=== PATIENT | female | born 1980 | race Caucasian/White ===

== ENCOUNTER 2024-07-11 19:21 | Emergency (ER) | payer MEDICAID, SELFPAY ==
[2024-07-11 19:22] VITALS: BP 158/68; PULSE 89; RESP 20; TEMP 36.4; O2SAT 95
--- NOTE | 2024-07-11 19:44 | RAD_ITS ---
STUDY: X-RAY CHEST REASON FOR EXAM: Female, 44 years old. SOB TECHNIQUE: Single AP portable view of the chest. COMPARISON: None. FINDINGS: Increased density in both lower lung bullard worse on the right-cannot exclude atelectasis or infiltrate versus overlying breast artifact. Suggest PA and lateral images or CT of the chest. No gross effusions. Normal size heart. Normal mediastinum and bibiana. Normal visualized pulmonary arteries. Normal visualized aortic arch and descending thoracic aorta. Normal visualized thoracic spine. Normal visualized ribs, clavicles, and shoulders. There is no demonstrated abnormality of the visualized soft tissue structures of the upper abdomen. RAD/Chest 1 View (Portable) IMPRESSION: Airspace densities in both mid and lower lung bullard versus overlying soft tissue artifact. Suggest further evaluation as above. Electronically Signed: Zach Hutton MD at 20:55 EST ,
[2024-07-11 19:58] LABS: Anion Gap 2 (5-15); BUN 8 mg/dL (7-18); BUN/Creat Ratio 11.7 RATIO (10-20); Calcium,Total 8.8 mg/dL (8.5-10.1); Chloride 106 mmol/L (98-107); Creatinine, Serum 0.69 mg/dL (0.55-1.02); EST Glomerular Filtration Rate 100 mL/min (>60); Est Glom Filt Rate - Afr Amer 121 mL/min (>60); Glucose 114 mg/dL (74-106); Sodium Level 138 mmol/L (136-145)
[2024-07-11 20:16] LABS: Absolute Lymphocyte Count 1.86 X10^3/uL (0.83-4.51); Absolute Neutrophil Count 7.4 X10^3/uL (2.0-7.7); Basophil# 0.07 X10^3/uL; Basophil% 0.7 % (0-1); Eosinophil# 0.31 X10^3/uL; Eosinophils% 2.9 % (0-5); Hematocrit 42.3 % (37-47); Hemoglobin 13.6 g/dL (12.0-15.0); Lymphocyte # 1.86 X10^3/ul (0.83-4.51); Lymphocyte % 17.6 % (19-41); Mean Corp Hgb Conc 32.2 g/dL (32-36); Mean Corpuscular Hgb 27.4 pg (27.0-32.0); Mean Corpuscular Volume 85.1 fL (81-99); Mean Platelet Vol. 10.4 fl (6.2-12.0); Monocyte# 0.81 X10^3/uL; Monocyte% 7.6 % (0-10); NRBC Flagged by Analyzer 0 % (0-5); Neutrophil # 7.41 X10^3/uL (2.7-7.7); Platelet Count 296 K/mm3 (150-450); RBC Distribution Width CV 15.4 % (11.6-14.6); RBC Distribution Width SD 47.5 fl (35.1-43.9); Red Blood Count 4.97 M/mm3 (4.2-5.4); White Blood Count 10.6 K/mm3 (4.4-11.0)
[2024-07-11 21:22] VITALS: BP 141/59; PULSE 80; RESP 20; O2SAT 96
--- NOTE | 2024-07-11 21:53 | ED.VIS.DYS ---
HPI History of Present Illness Chief Complaint: Shortness of Breath Detail of Chief Complaint: History of asthma, COPD with upper respiratory symptoms started 3 days ago Informant: patient Onset/Context/Timing Onset: Days (3 days prior to presentation) Context: sudden Timing: Continuous and Waxes and wanes Quality: Positive for Dyspnea on exertion and Wheezing; Negative for Orthopnea or PND Current Severity: Mild Maximum Severity: Moderate Worsened by: Exertion and Coughing Relieved by: Nothing Associated Symptoms cough, rhinorrhea and post nasal drip; Negative for ear pain, fever, sore throat, subjective, chills, sweats, clear sputum, white sputum, yellow sputum or green sputum Chest Pain: Positive for None Narrative Narrative: Patient is a 44-year-old woman who started smoking when she was a teenager. She smokes 1 pack/day. She reports her illness started 3 days prior to presentation. She has upper respiratory tract infectious symptoms with rhinorrhea, congestion, cough that is nonproductive. She does wheeze. She has history of asthma as a child. She also has COPD. She has not been on prednisone in the last 3 to 6 months. She has not used her inhaler. Patient denies fever or chills. Patient denies GI symptoms. Patient denies myalgias or arthralgias. Patient states she chronically has drainage from her eyes. She denies history of diabetes. PE Risk Factors: Negative for Cancer, OCP + Smoking + > 35, Prior DVT or PE, Recent immobilization, Recent surgery or Recent travel Prior similar symptoms: Yes (COPD/asthma exacerbation) Recent Illness/Hospitalization: No PFSH PFSH Medical History (Updated 07/11/24 @ 22:[address] Froylan Palmer MD) COPD (chronic obstructive pulmonary disease) Asthma Home Medications ?Medication ?Instructions ?Recorded ?Last Taken ?Type albuterol sulfate 90 mcg/actuation 2 puff inhalation Q4H PRN PRN 07/11/24 Unknown Rx aerosol inhaler (Ventolin HFA) Wheezing ##1 prednisone 20 mg tablet 60 mg (3 x 20 mg) PO DAILY #12 07/11/24 Unknown Rx TABLETS Allergy/AdvReac Type Severity Reaction Status Date / Time No Known Allergies Allergy Verified 07/11/24 19:24 Social History (Updated 07/11/24 @ 21:[address] Froylan Palmer MD) household members: friend(s) Smoking Status: Current every day smoker tobacco type: cigarettes ROS ROS ED Constitutional Constitutional ED: Denies chills, fever(s) or sweats Eyes Eyes: Denies blurry vision, change in vision or diplopia ENT ENT ED: Reports sore throat; Denies ear pain or rhinorrhea Cardiovascular Cardiovascular: Denies chest pain, orthopnea, palpitations or paroxysmal nocturnal dyspnea Respiratory/Chest Respiratory/Chest: Reports cough, dyspnea and dyspnea on exertion; Denies orthopnea, paroxysmal nocturnal dyspnea or sputum Gastrointestinal Gastrointestinal: Denies abdominal pain, diarrhea, melena, nausea or vomiting Genitourinary Genitourinary ED: Denies dysuria, hematuria or urinary frequency Musculoskeletal Musculoskeletal: Denies arthralgias or myalgias Integumentary Denies rash Neurologic Neurologic: Denies headache(s), paresthesias or weakness Hematologic/Lymphatic Hematologic/Lymphatic: Denies easy bleeding or easy bruising EXAM Physical Exam Const Vital Signs: 07/11/24 19:22 07/11/24 21:22 07/11/24 22:00 Temperature 97.6 F L 98.0 F Temperature Source Oral Oral Pulse Rate 89 80 88 Respiratory Rate 20 H 20 H 18 Respiratory Effort Blood Pressure 158/68 H 141/59 H 159/75 H Blood Pressure Mean 98 86 103 Pulse Ox 95 96 93 Oxygen Delivery Method Room Air Room Air Room Air 07/11/24 22:06 07/11/24 22:06 07/11/24 22:08 Temperature Temperature Source Pulse Rate Respiratory Rate 20 H Respiratory Effort Normal Non-Labored Blood Pressure Blood Pressure Mean Pulse Ox 96 96 Oxygen Delivery Method Room Air Room Air Room Air Positive well nourished, well developed and unkempt Constitutional Narrative: BMI is greater than 40. Vital signs are marked for an elevated blood pressure. Patient not febrile. Pulse ox is 95% on room air. General Appearance ED: unkempt and well developed; Negative for pallor HEENT Reports TM's clear and moist mucous membranes HEENT Narrative: Posterior pharynx is normal. atraumatic; Negative for tenderness Tympanic Membrane ED: Yes TM's clear Eyes PERRL and EOMs intact bilaterally Eyes Narrative: Conjunctive is slightly injected with discharge noted bilaterally. General Eye ED: Negative for pale conjunctiva or scleral icterus Neck no lymphadenopathy, supple, no meningeal signs and no JVD Neck Narrative: Trachea is midline. There is no inspiratory expiratory stridor. Resp normal respiratory effort and No clear to auscultation bilaterally Effort and Inspection: Negative for pain with movement Auscultation: wheezes expiratory wheezes and throughout (There is diminished breath sounds bilaterally. Breath sounds are symmetric. Expiratory phase is increased.); Negative for rales or rhonchi Cardio regular rate, regular rhythm, S1 normal heart sound, S2 normal heart sound and no murmurs GI non-tender, non-distended and no masses Palpation: soft Extremity normal to inspection General Extremety ED: Negative for edema or tenderness General Extremity: Negative for edema Neuro oriented x3 and CN's II-XII intact bilaterally Dola Coma Scale: document GCS findings Spontaneous Obeys Commands Oriented 15 Sensorium / Orientation: alert Psych mental status grossly normal Appearance: unkempt Skin no wounds and skin turgor normal General Skin Exam: Negative for jaundice or pallor Lesions: no lesions Rashes: no rashes MDM MDM MDM Narrative Medical decision making narrative: Patient with exacerbation COPD. Chest x-ray is obtained to evaluate for pneumonia. Rapid antigen for COVID, influenza and RSV was ordered as well as basic blood work. Suspect this is a viral upper respiratory infection that is exacerbated her asthma/COPD. She was treated with DuoNeb and albuterol. She also received 60 mg of prednisone p.o. Nurse protocol was initiated because of acuity in the emergency department. Lab Data Attestation: I reviewed the patient's lab results. Lab results narrative: CBC is unremarkable. Electrolyte panel is unremarkable. Glucose slight elevated 114 with normal CO2 anion gap. Rapid antigen for COVID, influenza and RSV are all negative. Labs: Laboratory Results - last 24 hr 07/11/24 19:35 WBC 10.6 RBC 4.97 Hgb 13.6 Hct 42.3 MCV 85.1 MCH 27.4 MCHC 32.2 RDW Std Deviation 47.5 H RDW Coeff of [place] 15.4 H Plt Count 296 MPV 10.4 Immature Gran % (Auto) 1.200 H Neut % (Auto) 70.0 Lymph % (Auto) 17.6 L [place] % (Auto) 7.6 Eos % (Auto) 2.9 Baso % (Auto) 0.7 Absolute Neuts (auto) 7.4 Absolute Lymphs (auto) 1.86 Nucleated RBC % 0 Sodium 138 Potassium 4.0 Chloride 106 Carbon Dioxide 30.0 Anion Gap 2 L BUN 8 Creatinine 0.69 Est GFR (MDRD) Af Amer 121 Est GFR (MDRD) Non-Af 100 BUN/Creatinine Ratio 11.7 Glucose 114 H Calcium 8.8 Radiography Chest X-Ray - ED: 2 View, Read by ED Physician, Unchanged, Normal, Heart, Mediastinum, Bony Structures, No Acute Disease and Chronic Changes Diagnostic Testing: Clinical Impression(s) from Imaging Studies Chest X-Ray 07/11/24 19:44 IMPRESSION: Airspace densities in both mid and lower lung bullard versus overlying soft tissue artifact. Suggest further evaluation as above. Electronically Signed: Zach Hutton MD at 20:55 EST , Radiology report was reviewed. I suspect the airspace densities is due to patient's body habitus. Clinically she does not have pneumonia. There is no rales, rhonchi egophony or increased vocal fremitus. Treatment and Re-Evaluation :: Patient was reassessed at 2252. She is not tachypneic, tachycardic or hypoxic. She reports she feels markedly better. There is minimal to no wheezing. She was informed of her test results. Discharge Plan Triage Chief Complaint: Shortness of Breath ED Provider: Froylan Palmer Dx/Rx/DC Orders Clinical Impression: Acute exacerbation of chronic obstructive pulmonary disease, Acute bronchospasm, Upper respiratory infection with cough and congestion, Tobacco use, Elevated blood-pressure reading without diagnosis of hypertension Instructions: ED COPD Flare Prescriptions: New prednisone 20 mg tablet 60 mg PO DAILY Qty: 12 0RF albuterol sulfate [Ventolin HFA] 90 mcg/actuation HFA aerosol inhaler 2 puff inhalation Q4H PRN PRN (Reason: Wheezing) Qty: 1 0RF Primary Care Provider: Care Physician,No Primary Referrals: NOT,DEFINED [Non-Staff] - Print Language: Hungarian Disposition Disposition: Home, Self Care
[2024-07-11] MEDS: Ipratropium/Albuterol Sulfate 3 ML AMPUL.NEB INHALATION (21:56)
[2024-07-11 22:00] VITALS: BP 159/75; PULSE 88; RESP 18; TEMP 36.7; O2SAT 93
[2024-07-11] MEDS: Albuterol 2.5 MG/3 ML VIAL.NEB. INHALATION ×3 (22:04)
[2024-07-11 22:06] VITALS: RESP 20; O2SAT 96
[2024-07-11] MEDS: predniSONE 20 MG Tablet 60 MG PO (22:06)
[2024-07-11 22:08] VITALS: O2SAT 97
[2024-07-11 22:10] VITALS: BMI 61.8
== END 2024-07-11 22:59 | disposition home or self-care (01) ==
PROVIDERS: Emergency Provider Emergency Medicine; Visit Provider Emergency Medicine
DX: J44.1 Chronic obstructive pulmonary disease with (acute) exacerbation (principal); J06.9 Acute upper respiratory infection, unspecified; J98.01 Acute bronchospasm; R03.0 Elevated blood-pressure reading, without diagnosis of hypertension; F17.210 Nicotine dependence, cigarettes, uncomplicated
CPT/HCPCS: 71045; 80048; 85025; 87631; 94640; 94760; 99283; A4216

== ENCOUNTER 2024-11-19 20:34 | Emergency (ER) | payer MEDICAID, SELFPAY ==
[2024-11-19 20:35] VITALS: BP 161/71; PULSE 88; RESP 20; TEMP 36.9; O2SAT 94
[2024-11-19 20:36] VITALS: BMI 63.5
--- NOTE | 2024-11-19 21:02 | EX.ED.VIS.EY ---
HPI History of Present Illness Chief Complaint: Eye Problem Detail of Chief Complaint: Drainage from eye, pain, itching Informant: patient Onset/Context/Timing Location: Left Eye Onset: Weeks (1 week ago.) Context: Sudden Onset Timing: Continuous Current Severity: Mild Maximum Severity: Moderate Worsened by: Itching, light Relieved by: Nothing Associated Symptoms Associated Symptoms - Eyes: Burning, Drainage, Eyelid swelling, Foreign body sensation, Itching, Pain and Redness Visual Changes: bilateral: Blurred vision History of injury: No Visual correction: None Narrative Narrative: Patient is a 44-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 She apparently was seen at [facility] [place]. She was told there was nothing that could be done. She presents because of eye pain, redness, drainage, itching and foreign body sensation. She also reports light sensitivity. She denies direct or indirect trauma. She denies double vision, loss of vision. She denies rhinorrhea, congestion postnasal drainage. She denies headache. Prior similar symptoms: No Recent Illness/Hospitalization: No [facility] Medical History (Updated 11/19/24 @ 22:[address] Froylan Palmer MD) Toxoplasmosis chorioretinitis COPD (chronic obstructive pulmonary disease) Asthma Home Medications ?Medication ?Instructions ?Recorded ?Last Taken ?Type albuterol sulfate 90 mcg/actuation 2 puff inhalation Q4H PRN PRN 07/11/24 Unknown Rx aerosol inhaler (Ventolin HFA) Wheezing ##1 prednisone 20 mg tablet 60 mg (3 x 20 mg) PO DAILY #12 07/11/24 Unknown Rx TABLETS Allergy/AdvReac Type Severity Reaction Status Date / Time No Known Allergies Allergy Verified 11/19/24 20:36 Social History household members: friend(s) Smoking Status: Heavy Smoker (>10/day) ROS ROS ED Constitutional Constitutional ED: Denies chills, fever(s), subjective or sweats Eyes Eyes: Reports change in vision bilateral and other Details: No loss of vision or visual field cuts. ; Denies diplopia ENT ENT ED: Denies ear pain, rhinorrhea or sore throat Respiratory/Chest Respiratory/Chest: Denies cough or dyspnea Gastrointestinal Gastrointestinal: Denies nausea or vomiting Hematologic/Lymphatic Hematologic/Lymphatic: Denies easy bleeding or easy bruising EXAM Physical Exam Const Vital Signs: 11/19/24 20:35 Temperature 98.5 F Temperature Source Oral Pulse Rate 88 Respiratory Rate 20 H Blood Pressure 161/71 H Blood Pressure Mean 101 Pulse Ox 94 Oxygen Delivery Method Room Air Positive well nourished, well developed and unkempt Constitutional Narrative: BMI is 63.5. General Appearance ED: unkempt and well developed HEENT Reports other atraumatic and other Nose: external nose normal and nares normal Eyes Eyes Narrative: Patient has floppy eyelid syndrome. Patient's sclera are injected bilaterally. The conjunctive is slightly injected. There is a slightly cloudy drainage noted. There appears to be a foreign body that is visible left eye. There is no APD. There is no subconjunctival hemorrhage. Neck no lymphadenopathy, supple and no JVD Resp normal respiratory effort Cardio regular rate and regular rhythm Neuro oriented x3 and CN's II-XII intact bilaterally Sensorium / Orientation: alert Psych Psych Narrative: Normal Appearance: unkempt Skin no wounds Lesions: no lesions Rashes: no rashes MDM MDM MDM Narrative Medical decision making narrative: Tetracaine, fluorescein slit-lamp was ordered as well as visual acuity. As previously noted there appears to be a visible foreign body at 12:00 3 mm from the limbal border. Will have nurse check visual acuity, will anesthetize eye and stain with fluorescein and perform slit-lamp exam to determine if there is evidence of episcleritis, iritis etc. Visual acuity is 20/30 bilaterally, 20/30 right eye and 20/200 left. Patient states her left eye is her bad eye. Patient was stained with fluorescein anesthetized with tetracaine. Patient is noted to have multiple corneal abrasions bilaterally. There may be a small flap superiorly 2 to 3 mm from the limbal border at 12:00. There is no foreign body seen. There is no flare cells noted. Patient was treated with ciprofloxacin drops in the emergency department and while was dispensed. Discharge Plan Triage Chief Complaint: Eye Problem ED Provider: Froylan Palmer Dx/Rx/DC Orders Clinical Impression: Bilateral corneal abrasions, COPD (chronic obstructive pulmonary disease), Acute conjunctivitis of both eyes, Obstructive sleep apnea, Floppy eyelid syndrome of both eyes Instructions: ED Corneal Abrasion Prescriptions: No Action prednisone 20 mg tablet 60 mg PO DAILY Qty: 12 0RF albuterol sulfate [Ventolin HFA] 90 mcg/actuation HFA aerosol inhaler 2 puff inhalation Q4H PRN PRN (Reason: Wheezing) Qty: 1 0RF Primary Care Provider: Addie Robles Referrals: Wale Diallo MD [Med Staff - Active Staff] - 1-2 Days if not improving Care Physician,No Primary [Non-Staff] - Activity Restrictions/Additional Instructions: 1. Do not rub your eyes 2. Instill 1 drop of eyedrop every 2 hours while awake for the next 24 hours, then instill 1 drop every 4 hours while awake for the next 5 days. 3. If you are not better contact Dr. Cherire Reed who is a local trench digger helper. Print Language: Vincentian Disposition Disposition: Home, Self Care
[2024-11-19] MEDS: Tetracaine 0.5% Ophthalmic Bottle 1 DRP OPHTHALMIC (21:06)
[2024-11-19] MEDS: Fluorescein 1 MG STRIP 2 STRIP OPHTHALMIC (21:06)
[2024-11-19 22:27] VITALS: PULSE 84; RESP 18; TEMP 36.8; O2SAT 95
[2024-11-19] MEDS: Ciprofloxacin 0.3% 2.5ml Bottle 1 DRP EACH EYE (22:28)
== END 2024-11-19 22:30 | disposition home or self-care (01) ==
PROVIDERS: Emergency Provider Emergency Medicine; PCP Family Medicine; Visit Provider Emergency Medicine
DX: S05.01XA Injury of conjunctiva and corneal abrasion without foreign body, right eye, initial encounter (principal); J44.9 Chronic obstructive pulmonary disease, unspecified; G47.33 Obstructive sleep apnea (adult) (pediatric); H10.33 Unspecified acute conjunctivitis, bilateral; F17.200 Nicotine dependence, unspecified, uncomplicated; B58.00 Toxoplasma oculopathy, unspecified; S05.02XA Injury of conjunctiva and corneal abrasion without foreign body, left eye, initial encounter; H02.89 Other specified disorders of eyelid; X58.XXXA Exposure to other specified factors, initial encounter
CPT/HCPCS: 99283

== ENCOUNTER 2025-01-02 17:47 | Emergency (ER) | payer MEDICAID, SELFPAY ==
[2025-01-02] VITALS (8 sets, daily range): BP systolic 128–161; BP diastolic 72–96; PULSE 83–90; RESP 14–20; TEMP 36.8–37.1; O2SAT 94–100
--- NOTE | 2025-01-02 19:38 | ED.VIS.LOWEX ---
HPI History of Present Illness HPI Narrative: Patient presents with redness to her right lower leg that has been getting worse over the past week. Patient was seen at [place] emergency [facility] for this. Patient was started on doxycycline. Patient also admits to a rash in her abdominal skin folds. Patient states she was given nystatin for this. Patient states the nystatin made this worse. Patient states she does not feel she is getting any better. Patient admits to some nausea but denies any vomiting. Family states patient appears to be more confused. Patient denies any fevers or chills. Patient denies any trauma or injury. Chief Complaint: Lower Extremity Injury Informant: patient Onset/Context/Timing Onset: Weeks (1) Context: Gradual Onset Timing: Continuous Location: Right lower leg Worsened by: Nothing Relieved by: Nothing Associated Symptoms Associated Symptoms: Negative for Parasthesia, Weakness or Loss of Funtion [facility] Medical History (Updated 01/03/25 @ 00:[address] Cale Dolan, DO) Toxoplasmosis chorioretinitis COPD (chronic obstructive pulmonary disease) Asthma Home Medications ?Medication ?Instructions ?Recorded ?Last Taken ?Type albuterol sulfate 90 mcg/actuation 2 puff inhalation Q4H PRN PRN 07/11/24 Unknown Rx aerosol inhaler (Ventolin HFA) Wheezing ##1 prednisone 20 mg tablet 60 mg (3 x 20 mg) PO DAILY #12 07/11/24 Unknown Rx TABLETS celecoxib 100 mg capsule 100 mg PO DAILY 01/02/25 Unknown History cetirizine 10 mg tablet 10 mg PO DAILY 01/02/25 Unknown History doxycycline monohydrate 100 mg 100 mg PO BID 01/02/25 Unknown History capsule nystatin 100,000 unit/gram topical 1 applic topical TID 01/02/25 Unknown History powder omega-3 acid ethyl esters 1 gram 1 cap PO DAILY 01/02/25 Unknown History capsule pantoprazole 40 mg tablet,delayed 40 mg PO 01/02/25 Unknown History release risperidone 0.5 mg tablet 0.5 mg PO QHS 01/02/25 Unknown History trazodone 50 mg tablet 50 mg PO QHS 01/02/25 Unknown History venlafaxine 225 mg tablet,extended 225 mg PO DAILY 01/02/25 Unknown History release 24 hr cephalexin 500 mg capsule 500 mg PO Q6 #40 CAPSULES 01/03/25 Unknown Rx Allergy/AdvReac Type Severity Reaction Status Date / Time No Known Allergies Allergy Verified 01/02/25 17:48 Family History no significant family his Surgical History (Updated 01/02/25 @ 19:[address] Cale Dolan DO) Hx of cholecystectomy Hx of appendectomy Social History household members: friend(s) Smoking Status: Light Smoker (<10/day) ROS ROS ED Constitutional Constitutional ED: Denies chills or fever(s) Eyes Eyes: Denies blurry vision or change in vision ENT ENT ED: Denies rhinorrhea or sore throat Cardiovascular Cardiovascular: Denies chest pain or palpitations Respiratory/Chest Respiratory/Chest: Denies cough or dyspnea Gastrointestinal Gastrointestinal: Reports nausea; Denies vomiting Genitourinary Genitourinary ED: Denies dysuria or hematuria Musculoskeletal Musculoskeletal: Denies back pain or neck pain Integumentary Reports rash; Denies abscess Neurologic Neurologic: Denies headache(s) or weakness Allergic/Immunologic Allergic/Immunologic ED: Denies mouth swelling or urticaria EXAM Physical Exam Const Vital Signs: 01/02/25 17:47 01/02/25 17:56 01/02/25 18:56 Temperature 98.3 F 98.3 F 98.3 F Temperature Source Temporal Oral Oral Pulse Rate 89 89 89 Respiratory Rate 14 16 16 Respiratory Pattern Blood Pressure 161/96 H 161/96 H 149/72 H Blood Pressure Mean 117 117 97 Pulse Ox 98 98 100 Oxygen Delivery Method Room Air Room Air Room Air 01/02/25 20:00 01/02/25 21:00 01/02/25 22:00 Temperature 98.3 F 98.8 F 98.8 F Temperature Source Oral Oral Oral Pulse Rate 85 89 90 Respiratory Rate 20 H 20 H 20 H Respiratory Pattern Blood Pressure 154/76 H 149/80 H 128/73 H Blood Pressure Mean 102 103 91 Pulse Ox 94 94 94 Oxygen Delivery Method Room Air Room Air Room Air 01/02/25 22:11 01/02/25 23:00 01/03/25 00:00 Temperature 98.8 F 98.8 F Temperature Source Oral Oral Pulse Rate 90 83 83 Respiratory Rate 20 H 18 18 Respiratory Pattern Normal Blood Pressure 139/84 H 145/92 H Blood Pressure Mean 102 109 Pulse Ox 94 94 Oxygen Delivery Method Room Air Room Air Positive well nourished and well developed General Appearance ED: well developed and NAD HEENT Reports moist mucous membranes Neck full ROM and supple Resp normal respiratory effort and clear to auscultation bilaterally Cardio regular rate and regular rhythm GI non-distended Palpation: soft and tender RLQ Extremity Extremity Narrative: There are superficial wounds over the anterior aspect of the right lower leg. There is some erythema around this. There is no purulent discharge or drainage noted. There is no evidence of any abscess. There is no calf tenderness. Pedal pulses are equal bilaterally. Sensation was intact to light touch bilaterally in the lower extremities. Strength is 5/5 bilaterally in the lower extremities. Neuro oriented x3, CN's II-XII intact bilaterally, moves all extremities and no sensory deficits noted Sensorium / Orientation: alert Motor Exam: strength 5/5 throughout Psych mental status grossly normal MDM MDM MDM Narrative Medical decision making narrative: Differential diagnosis includes cellulitis, gastroenteritis, urinary tract infection, ureteral calculus, dehydration, electrolyte abnormality, cardiac dysrhythmia, cardiac ischemia, intracranial bleeding, and sepsis. CBC will be obtained to assess for leukocytosis and anemia. Comprehensive metabolic profile will be obtained to assess for hepatic function, renal function, and electrolyte abnormality. Urinalysis will be obtained to assess for urinary tract infection and hematuria. Serum lactate will be obtained to assess for sepsis. PT with INR and PTT will be obtained to assess for coagulopathy. Chest x-ray will be obtained to assess for pneumonia and bronchitis. EKG will be obtained to assess for cardiac dysrhythmia and cardiac ischemia. CT scan of the brain will be obtained to assess for intracranial bleeding. Blood cultures will be obtained to assess for sepsis. Urine culture will be obtained to assess for urinary tract infection. History & Record Review Additional record(s) reviewed:: Prior labs Lab Data Attestation: I reviewed the patient's lab results. Lab results narrative: CBC was reviewed. There is a mild leukocytosis of 14.2. The remainder is within normal limits. Comprehensive metabolic profile was reviewed. Potassium was slightly elevated at 5.3 but there was hemolysis noted. Glucose was mildly elevated at 129. CO2 was slightly low at 18.6. The remainder was essentially within normal limits. Serum lactate was reviewed and was slightly elevated at 2.6. High-sensitivity troponin was reviewed and was less than 6. BNP was reviewed and was normal at 163. Urinalysis was reviewed. There is no evidence of urinary tract infection or hematuria. 2-hour repeat high-sensitivity troponin was reviewed and was less than 6. Repeat lactate was reviewed and was improving at 2.1. 4-hour high-sensitivity troponin was reviewed and was less than 6. COVID-19 PCR was reviewed and was negative. Influenza PCR was reviewed and was negative for influenza A and influenza B. RSV PCR was reviewed and was negative. Labs: Laboratory Results - last 24 hr 01/02/25 01/02/25 01/02/25 19:55 21:49 23:41 WBC 14.2 H RBC 5.22 Hgb 13.5 Hct 42.2 MCV 80.8 L MCH 25.9 L MCHC 32.0 RDW Std Deviation 50.3 H RDW Coeff of [place]ber[place] 17.7 H Plt Count 343 MPV 10.1 Immature Gran % (Auto) 1.300 H Neut % (Auto) 83.5 H Lymph % (Auto) 10.5 L [place] % (Auto) 4.1 Eos % (Auto) 0.1 Baso % (Auto) 0.5 Absolute Neuts (auto) 11.9 H Absolute Lymphs (auto) 1.50 Nucleated RBC % 0 PT 13.0 INR 1.0 APTT 26.8 Sodium 135 Potassium 5.3 H Chloride 101 Carbon Dioxide 18.6 L Anion Gap 16 H BUN 12 Creatinine 0.83 Est GFR (MDRD) Non-Af 90 BUN/Creatinine Ratio 14.0 Glucose 129 H Lactic Acid 2.6 H* 2.1 H* Calcium 8.8 Total Bilirubin 0.42 AST 51 H ALT 32 Alkaline Phosphatase 99 Troponin T High Sens < 6 Troponin T Hi Sens 2 Hr < 6 Troponin T Hi Sens 4Hr < 6 NT pro BNP II 163 Total Protein 7.3 Albumin 3.8 Globulin 3.4 Albumin/Globulin Ratio 1.1 Urine Color Straw Urine Clarity Clear Urine pH 6.0 Ur Specific Corinne 1.015 Urine Protein 30 H Urine Glucose (UA) Normal Urine Ketones Negative Urine Occult Blood Negative Urine Nitrite Negative Urine Bilirubin Negative Urine Urobilinogen Normal Ur Leukocyte Esterase Negative Urine RBC 0 SEEN Urine WBC 0-5 SEEN Ur Squamous Epith Cells 10-25 SEEN Urine Bacteria RARE Urine Mucus 0 SEEN Radiography Chest X-Ray - ED: 2 View, Read by ED Physician, Read by Radiologist and CHF (Vascular congestion) Diagnostic Testing: Clinical Impression(s) from Imaging Studies Brain CT 01/02/25 19:44 IMPRESSION: 1. No acute intracranial abnormality. 2. Sphenoid and maxillary sinus disease. Reading Location: [id number] Chest X-Ray 01/02/25 20:19 IMPRESSION: Increased interstitial markings with prominent cardiomediastinal silhouette, as may be seen with pulmonary edema. Reading Location: [id number] CT scan of the brain was obtained. There is no acute intracranial abnormality. There is sphenoid maxillary sinus congestion. This was interpreted by the radiologist and was also independently reviewed by myself. PA and lateral chest x-ray was obtained. There are 2 views. On my independent interpretation, lung bullard show vascular congestion. There is normal cardiac silhouette. Bony thorax is normal. There is no acute infiltrate noted. Radiologist also interpreted the x-ray and agrees. EKG Initial EKG: Attestation: I personally reviewed and interpreted this EKG as follows: Interpretation: Sinus Rhythm (88) and Non-Specific ST Changes Comments: EKG was obtained. On my independent interpretation, it showed a normal sinus rhythm with a rate of 88. AL interval, QRS interval, and QTc intervals were all normal. [place] was normal. There are nonspecific ST-T wave changes. Prior EKG tracings: not available for review Prior: No Prior Treatment and Re-Evaluation Narrative: Because of the chest x-ray findings, patient is given a dose of Lasix. Patient was given a DuoNeb aerosol. Patient was advised of her findings. Patient was feeling better on reevaluation. Patient wants to go home. Patient was given a dose of Keflex here. Patient was given a prescription for Keflex. Patient was requesting a referral to a new primary care physician. Patient was given a referral to [facility]. Patient was instructed to follow-up in 5 to 7 days. Patient was instructed to return if worse in any way. Patient understood and was agreeable with the plan. All questions were answered. Discharge Plan Triage Chief Complaint: Lower Extremity Injury ED Provider: Cale Dolan Dx/Rx/DC Orders Clinical Impression: Cellulitis of right anterior lower leg, COPD (chronic obstructive pulmonary disease), Candidiasis of skin Instructions: ED Katie Skin Infection (Adult), ED Cellulitis Prescriptions: New cephalexin 500 mg capsule 500 mg PO Q6 Qty: 40 0RF No Action prednisone 20 mg tablet 60 mg PO DAILY Qty: 12 0RF albuterol sulfate [Ventolin HFA] 90 mcg/actuation HFA aerosol inhaler 2 puff inhalation Q4H PRN PRN (Reason: Wheezing) Qty: 1 0RF trazodone 50 mg tablet 50 mg PO QHS cetirizine 10 mg tablet 10 mg PO DAILY doxycycline monohydrate 100 mg capsule 100 mg PO BID pantoprazole 40 mg tablet,delayed release (DR/EC) 40 mg PO nystatin 100,000 unit/gram powder 1 applic topical TID celecoxib 100 mg capsule 100 mg PO DAILY risperidone 0.5 mg tablet 0.5 mg PO QHS omega-3 acid ethyl esters 1 gram capsule 1 cap PO DAILY venlafaxine 225 mg tablet extended release 24hr 225 mg PO DAILY Primary Care Provider: Addie Robles Referrals: Cale Moore MD [Med Staff - [employer]] - 5-7 Days Addie Robles DO [Primary Care Provider] - 5-7 Days Print Language: [place] Disposition Disposition: Home, Self Care
--- NOTE | 2025-01-02 19:44 | CT_ITS ---
PROCEDURE: BRAIN/HEAD WITHOUT CONTRAST 01/02/2025 REASON FOR EXAM: CONFUSION TECHNIQUE: BRAIN/HEAD WITHOUT CONTRAST Coronal and Sagittal reconstruction series were provided. One or more dose reduction techniques were used (e.g., Automated exposure control, adjustment of the mA and/or kV according to patient size, use of iterative reconstruction technique. RADIATION DOSE SUMMARY: CTDlvol: 45.0 mGy DLP: 914 mGycm COMPARISON: None FINDINGS: Brain: No acute intracranial hemorrhage, mass effect, or midline shift. Ochoa- white differentiation is maintained. The cerebellar tonsils extend to the level of the foramen magnum. CSF Spaces: Unremarkable for age Sinuses/Mastoids: Mild mucosal thickening in the maxillary sinuses. Near- complete opacification of the right sphenoid sinus there is under pneumatization of the mastoid air cells without significant effusion. Bones: Unremarkable CT/Brain/Head without Contrast IMPRESSION: 1. No acute intracranial abnormality. 2. Sphenoid and maxillary sinus disease. Reading Location: [facility]
--- NOTE | 2025-01-02 19:45 | EKG12_ITS ---
Test Reason : DYSRHYTHMIA Blood Pressure : */* mmHG Vent. Rate : 88 BPM Atrial Rate : 88 BPM P-R Int : 132 ms QRS Dur : 84 ms QT Int : 406 ms P-R-T Axes : 50 76 77 degrees QTcB Int : 491 ms Normal sinus rhythm Low voltage QRS Nonspecific T wave abnormality Abnormal ECG Confirmed by GABO SPANGLER, FABIENNE ([id number]), managing editor RAFAEL PEDROZA ([id number]) on 01/03/2025 11:27:45 AM Referred By: Confirmed By: FABIENNE AYON MD
--- NOTE | 2025-01-02 19:51 | PCA ---
no old ekg
--- NOTE | 2025-01-02 20:19 | RAD_ITS ---
PROCEDURE: CHEST PA AND LATERAL 01/02/2025 REASON FOR EXAM: COUGH TECHNIQUE: CHEST PA AND LATERAL COMPARISON: Chest radiograph on 07/11/2024 FINDINGS: Hardware: None Mediastinum: Prominent cardiomediastinal silhouette, unchanged. Lungs: No focal consolidation. Interstitial markings are increased. No definite pleural effusion. Bones: Degenerative changes are identified within the thoracic spine. RAD/Chest PA and Lateral IMPRESSION: Increased interstitial markings with prominent cardiomediastinal silhouette, as may be seen with pulmonary edema. Reading Location: [id number]
[2025-01-02 20:33] LABS: Mucous, Urine 0 SEEN /hpf (<or=2+); Red Blood Cells-Urine 0 SEEN /hpf (0-5)
[2025-01-02 20:43] LABS: Absolute Neutrophil Count 11.9 X10^3/uL (2.0-7.7); Basophil# 0.07 X10^3/uL; Basophil% 0.5 % (0-1); Eosinophil# 0.02 X10^3/uL; Eosinophils% 0.1 % (0-5); Hematocrit 42.2 % (37-47); Hemoglobin 13.5 g/dL (12.0-15.0); Lymphocyte % 10.5 % (19-41); Mean Corpuscular Hgb 25.9 pg (27.0-32.0); Mean Corpuscular Volume 80.8 fL (81-99); Mean Platelet Vol. 10.1 fl (6.2-12.0); Monocyte# 0.59 X10^3/uL; Monocyte% 4.1 % (0-10); NRBC Flagged by Analyzer 0 % (0-5); Neutrophil # 11.86 X10^3/uL (2.7-7.7); Neutrophil % 83.5 % (47-70); Platelet Count 343 K/mm3 (150-450); RBC Distribution Width CV 17.7 % (11.6-14.6); RBC Distribution Width SD 50.3 fl (35.1-43.9); Red Blood Count 5.22 M/mm3 (4.2-5.4); White Blood Count 14.2 K/mm3 (4.4-11.0)
[2025-01-02 20:52] LABS: Partial Thromboplast Time 26.8 Seconds (24.1-36.2)
[2025-01-02 21:16] LABS: Troponin T High Sensitivity < 6 ng/L (<=14)
[2025-01-02 21:23] LABS: Lactic Acid 2.6 mmol/L (0.0-2.0)
[2025-01-02 21:24] LABS: Color, Urine Straw (Yellow); Glucose, Dipstick Normal (Normal); Ketone-Dipstick Negative (Negative); Leukocyte Esterase-Dipstick Negative /ul (Negative); Nitrite-Dipstick Negative (Negative); Occult Blood-Urine Negative /ul (Negative); Protein-Dipstick 30 mg/dl (Negative); Specific Gravity, Urine 1.015 (1.002-1.030); Urine Bilirubin Dipstick Negative (Negative); Urine Clarity Clear (Clear); Urine Urobilinogen Normal (Normal)
[2025-01-02 21:27] LABS: Reflex Lactate? Y
[2025-01-02 21:34] LABS: ALB/GLOB Ratio 1.1 RATIO (0.9-2.4); AST(SGOT) 51 U/L (<=31); Alanine Aminotransfer ALT/SGPT 32 U/L (<=34); Albumin, Serum 3.8 g/dL (3.5-5.0); Alkaline Phosphatase 99 U/L (35-104); Anion Gap 16 (5-15); BUN 12 mg/dL (4-19); Calcium,Total 8.8 mg/dL (7.6-11.0); Carbon Dioxide 18.6 mmol/L (21.0-32.0); Chloride 101 mmol/L (98-108); Creatinine, Serum 0.83 mg/dL (0.70-1.20); EST Glomerular Filtration Rate 90 (>60); Globulin 3.4 g/dL (2.2-4.2); Glucose 129 mg/dL (70-99); Potassium 5.3 mmol/L (3.3-5.1); Protein, Total 7.3 g/dL (5.9-8.4); Sodium Level 135 mmol/L (133-145); Total Bilirubin 0.42 mg/dL (0.00-1.30)
[2025-01-02 21:49] LABS: Bacteria RARE /hpf (None Seen); Squamous Epithelial Cells - UA 10-25 SEEN /hpf (5-10); White Blood Cells 0-5 SEEN /hpf (0-5)
[2025-01-02] MEDS: Ipratropium/Albuterol Sulfate 3 ML AMPUL.NEB INHALATION (22:11)
[2025-01-02 22:18] LABS: Troponin T High Sens 2 HR < 6 ng/L (<=14)
[2025-01-02] MEDS: Furosemide 40 MG/4 ML Vial IV (22:25)
[2025-01-02 22:59] LABS: Pro- Brain NATRIURETIC PEPTIDE 163 pg/mL (<=450)
[2025-01-03] VITALS: BP 145/92; PULSE 83; RESP 18; TEMP 37.1; O2SAT 94
[2025-01-03 00:16] LABS: Troponin T High Sens 4 HR < 6 ng/L (<=14)
[2025-01-03 00:20] LABS: Lactic Acid 2.1 mmol/L (0.0-2.0)
[2025-01-03 00:37] VITALS: BP 141/62; PULSE 71; RESP 16; TEMP 36.6; O2SAT 96
[2025-01-03] MEDS: Cephalexin 500 MG Capsule PO (00:41)
[2025-01-03 03:48] LABS: Reflex Lactate? Y
== END 2025-01-03 00:47 | disposition home or self-care (01) ==
PROVIDERS: Emergency Provider Emergency Medicine; PCP Family Medicine; Visit Provider Emergency Medicine
DX: L03.115 Cellulitis of right lower limb (principal); J44.9 Chronic obstructive pulmonary disease, unspecified; B37.2 Candidiasis of skin and nail; F17.200 Nicotine dependence, unspecified, uncomplicated; Z79.899 Other long term (current) drug therapy; D72.829 Elevated white blood cell count, unspecified; E87.5 Hyperkalemia; R73.9 Hyperglycemia, unspecified; E87.20 Acidosis, unspecified
CPT/HCPCS: 70450; 71046; 80053; 81001; 83605; 83880; 84484; 85025; 85610; 85730; 87040; 87077; 87086; 87088; 87186; 87631; 93005; 94640; 99284; A4216; J1938

== ENCOUNTER 2025-02-28 13:45 | Outpatient (RCR) | payer MEDICAID, SELFPAY ==
[2025-02-14 14:00] VITALS: BP 187/61; PULSE 86; RESP 18; TEMP 36.4; BMI 62.4
--- NOTE | 2025-02-15 09:10 | WC ---
PHOTO: RT LINARES 02.14.25
--- NOTE | 2025-02-15 12:31 | PCM.WC.HP ---
History of Present Illness Date of Service: 02/14/25 Chief Complaint: Traumatic wound of the right lower extremity History of Wound: This is a morbidly obese 44-year-old diabetic female who presented with a wound on her right pretibial surface. According to patient, the wound began in November 2024 as result of trauma when she fell down a flight of stairs. Since the time of her initial injury, the patient has been evaluated and treated in various medical facilities, including the [facility] Emergency Department in the Emergency Department at the [facility]. She was seen at the [facility] ER on January 02, 2025, at which time she was treated with a prescription for cephalexin 500 mg p.o. every 6 hours for 10 days. More recently, the patient was evaluated in the Emergency Department at the [facility] on February 07, at which time she was briefly admitted and subsequently discharged with prescriptions for oral Bactrim and Levaquin, which continue to this date. According to the patient, a prior wound culture was positive for Staph aureus. She also indicates that hemoglobin A1c was obtained on January 24, 2025, which was 5.9. She denies that she is diabetic. She also denies a history of myocardial infarction, congestive heart failure, cerebrovascular accident, renal disease, thyroid disease, and hypertension. She is known to be a smoker, and suffers from COPD and asthma. She also has obstructive sleep apnea, for which she uses CPAP. She is morbidly obese, with a BMI of 62.5. The patient admits to sleeping in a recliner. She is not active, and sits in idle fashion throughout most of each day. She denies a history of lower extremity thrombophlebitis. [facility] Medical History (Updated 02/15/25 @ 13:[address] Russ Mancuso MD) Dependent edema Obstructive sleep apnea on CPAP Morbid obesity with BMI of 60.0-69.9, adult Non-pressure ulcer of right lower extremity with fat layer exposed Wound of right lower extremity Asthma Tobacco abuse counseling Tobacco abuse Schizophrenia ADHD Hyperlipidemia GERD (gastroesophageal reflux disease) Toxoplasmosis chorioretinitis COPD (chronic obstructive pulmonary disease) Asthma Home Medications ?Medication ?Instructions ?Recorded ?Last Taken ?Type albuterol sulfate 90 mcg/actuation 2 puff inhalation Q4H PRN PRN 07/11/24 Unknown Rx aerosol inhaler (Ventolin HFA) Wheezing ##1 celecoxib 100 mg capsule 100 mg PO DAILY 01/02/25 Unknown History cetirizine 10 mg tablet 10 mg PO DAILY 01/02/25 Unknown History pantoprazole 40 mg tablet,delayed 40 mg PO DAILY 01/02/25 Unknown History release risperidone 0.5 mg tablet 0.5 mg PO QHS 01/02/25 Unknown History trazodone 50 mg tablet 100 mg PO QHS 01/02/25 Unknown History atorvastatin 10 mg tablet (Lipitor) 10 mg PO DAILY 02/14/25 Unknown History bupropion HCl 150 mg 24 hr tablet, 150 mg PO DAILY 02/14/25 Unknown History extended release (Wellbutrin XL) fluconazole 150 mg tablet 150 mg PO QWEEK 02/14/25 Unknown History fluticasone 250 mcg-salmeterol 50 1 inh inhalation BID 02/14/25 Unknown History mcg/dose blistr powdr for inhalation (Advair Diskus) ipratropium 0.5 mg-albuterol 3 mg ml 02/14/25 Unknown History (2.5 mg base)/3 mL nebulization soln lumateperone 21 mg capsule 21 mg PO DAILY 02/14/25 Unknown History (Caplyta) omega-3 acid ethyl esters 1 gram cap PO 02/14/25 Unknown History capsule propranolol 20 mg tablet 20 mg PO BID 02/14/25 Unknown History Allergy/AdvReac Type Severity Reaction Status Date / Time nystatin Allergy Intermediate Rash Verified 02/14/25 14:21 Surgical History Hx of cholecystectomy Hx of appendectomy Social History household members: friend(s) Smoking Status: Current every day smoker tobacco type: cigarettes Vital Signs Vital Signs Vital Signs: 02/14/25 14:00 Temperature 97.6 F L Temperature Source Temporal Pulse Rate 86 Respiratory Rate 18 Blood Pressure 187/61 H Blood Pressure Mean 103 Blood Pressure Source Monitor Blood Pressure Position Semi-Fowlers Blood Pressure Location Right Arm Weight Weight: 320 lb Body Mass Index (BMI) 62.4 Physical Exam Const alert, oriented x3, no apparent distress, no limitations and well nourished Constitutional Narrative: The patient is morbidly obese. Her BMI is 62.5. General Appearance: cooperative, comfortable and well developed Orientation / Consciousness: awake, oriented to person, oriented to place and oriented to time Exam Limitations: no limitations Nutritional Appearance: overweight HEENT normocephalic and head/scalp atraumatic Head and Scalp: normal to inspection, normocephalic and atraumatic Face and Sinus: normal facial exam Nose: external nose normal External Ear: external ears normal Eyes EOMs intact bilaterally General Eye: normal appearance of both eyes Neck full ROM Resp normal respiratory effort, normal air movement, no retractions and no use of accessory muscles Effort and Inspection: able to speak in complete sentences Extremity no calf tenderness General Extremity: Negative for clubbing or cyanosis Skin Wound Narrative: A wound is noted on the right pretibial surface. It appears to be full-thickness, extending through all layers of the dermis and into the subcutaneous tissues. Wound margins appear to be well beveled. Dimensions are documented elsewhere. There is a moderate amount of slough, bioburden, and nonviable tissue. Mild surrounding erythema is noted. There are some scattered superficial eschars and excoriation in the distal right lower extremity, with mild dermatitic changes. Visually, there is mild swelling, with 1+ pitting edema. Neuro oriented x3, CN's II-XII intact bilaterally, moves all extremities, no focal motor deficits and no sensory deficits noted Sensorium / Orientation: awake, alert, oriented to person, oriented to place and oriented to time Speech: speech normal Psych Appearance: grossly normal and appropriate Attitude: calm Activity / Motor Behavior: appropriate eye contact Speech: normal speech Mood & Affect: euthymic mood Thought Process: normal thought process Thought Content: normal thought content Attention / Concentration: attention grossly intact Debridement Note Debridement Note Wound debrided: Right pretibial surface Laterality: Right Type of Debridement: Excisional debridement Anesthesia Used: 5% Lidocaine Gel and Cetacaine Depth: Down to and including healthy tissue and in the subcutaneous layer Percentage of wound debrided: 100 Instrument Used: 5mm curette Tissue Removed: Bioburden, slough, and nonviable tissue Severity: Fat Layer Exposed Amount of bleeding with debridement: Mild Bleeding Controlled with: Compression and gauze Patient tolerated procedure: Patient tolerated procedure well Post-Debridement Measurements and Additional Note: Post-Debridement Measurements/Treatment WC - Nurse 1 - General Ulcer Assessment Start: 02/14/25 14:00 Freq: Status: Active Protocol: PAOLO Activity Type Activity Date Activity User E-sign Co-sign Detail Recorded Client Recorded Date Recorded By Document 02/14/25 14:00 AURELIO [id number] 02/14/25 14:17 AURELIO 02/14/25 14:00 - Today's Visit Information Type of service Initial Visit Arrival Mode Ambulatory Accompanied by friend Patient Identification Verified (Name & Yes ) Patient Requires Transmission-Based No Precautions Height and Weight Height 5 ft Weight 320 lb Weight in Pounds 320.0 lbs Weight Measurement Method Estimated by Patient Body Mass Index (BMI) 62.4 BMI Classification Obese Vital Signs Temperature (97.8 F-99.1 F) 97.6 F L Temperature Source Temporal Pulse Rate (60-100) 86 Pulse Location Monitor Respiratory Rate (12-18) 18 Respiratory rate source Observation Blood Pressure (90/60-120/80) 187/61 H Blood Pressure Mean 103 Source Monitor Position Semi-Fowlers Blood Pressure Location Right Arm History Since Last Visit- (Skip if this is Patient's initial visit) Left Footwear Regular Shoe Right Footwear Regular Shoe Pain Scale: 0-10 Numeric Is Patient Pain Free? Yes Lower Extremity Assessment/ Foot Assessment/ Toe Nail Assessment Right -Posterior Tibial Palpable Yes -Dorsalis Pedis Palpable Yes -Extremity Color Hyperpigmented -Hair Growth on Legs Yes -Hair Growth on Toes Yes -Temperature of Extremity Warm -Capillary Refill Less than 3 Seconds -Prior Foot Ulcer No -Thick Yes -Discolored Yes -Deformed No -Improper Length & Hygeine No Communication Assessment Preferred language Wolof Able to Read Yes Able to Write Yes Communication Tools None Right Hearing Abillity Normal Left Hearing Abillity Normal Visual Assistive Devices Glasses Teaching Assessment Preferences Verbal,Written, Audio/Visual, Demonstration Barriers to Learning None Readiness To Learn Good Willingness to Engage in Self Management Med Activies Readiness to Engage in Self Management Med Activities Anxiety Level Anxious Cooperation Cooperative Perception Coherent Interest in Health Problem Asks Questions Education Importance Acknowledges Need Does Patient Smoke tobacco or other Yes substances Smoking Status Current every day smoker Is Patient Diabetic No Functional Assessment Recent Decline in Ability to Perform Denies Any Declines Culture/Restoration/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 Infantry Indirect Fire Crewmember to contact place of cheondoism No Teaching: Wound Center [facility] Orientation/ Contacting Physician -Person Taught Patient,Family -Teaching Method Discussion, Demonstration -Response to teaching Return Demonstration, Verbalize Understanding - Nurse 1 - General Ulcer Measurement Start: 02/14/25 14:00 Freq: Status: Active Protocol: Activity Type Activity Date Activity User E-sign Co-sign Detail Recorded Client Recorded Date Recorded By Document 02/14/25 14:00 AURELIO [id number] 02/14/25 14:17 JF 02/14/25 14:00 Wound Center Nurse 1 1-right de souza -Combined with other wound No -Current Size (cm) - Length 5 -Current Size (cm) - Width 2.6 -Current Size (cm) - Depth 0.1 -Total Square Cm 13.0 -Photo Taken Yes -Epithelialization Small 1-33% -Tunneling No -Undermining/Tunneling No -Circular Undermining No -Exudate Amt Small -Exudate Type Serosanguineous -Wound Margin Flat & Intact -Granulation Amt Medium (34-66%) -Granulation Quality Pale -Slough/Fibrin Yes -Necrosis Amt Large (67-100%) -Necrotic Tissue Type Adherent Slough -Structure Exposed N/A -Texture (Brandy-wound Skin Appearance) Assessed, Localized Edema -Moisture (Brandy-wound Skin Appearance) No Abnormality, Dry/Scaly -Color (Brandy-wound Skin Appearance) Assessed -Temperature (Brandy-wound Skin No Abnormality Appearance) (Pt Warm) -Tenderness on Palpation (Brandy-wound No Skin Appearance) -Ulcer Cleansing Soap and Water -Foul Odor after Cleansing No -Anesthetic Used 5% Lidocaine Gel Lower Limb Edema Present Yes Right Calf (cm) 44 Right Ankle (cm) 20.8 - Nurse 2 - General Ulcer CM Notes Start: 02/14/25 14:00 Freq: Status: Active Protocol: Activity Type Activity Date Activity User E-sign Co-sign Detail Recorded Client Recorded Date Recorded By Document 02/14/25 14:45 JOSE LUIS [id number] 02/14/25 14:48 DS 02/14/25 14:45 Wound Center Nurse 2 1-right de souza -Time 14:45 -Correct Patient Yes -Correct Side, Site, Position Yes -Correct Procedure Yes -Procedure Performed Yes -Type of Procedure Debridement -Clinical Debridement Subcutaneous -Tissue Removed Subcutaneous -Post Debridement (cm) - Length 3.8 -Post Debridement (cm) - Width 3.0 -Post Debridement (cm) - Depth 0.1 -Total Square (Post) (cm) 11.40 -Area of Debridement (cm) - Length 3.8 -Area of Debridement (cm) - Width 3.0 -Total Square (Area) (cm) 11.40 -Tunneling No -Undermining/Tunneling No -Circular Undermining No -Wound/Ulcer Outcome Not Healed -Foul Odor after Cleansing No -Bioengineered Tissue No -Bleeding Controlled with Pressure -Treatment Response Procedure Tolerated Well -Debridement - Subq, 1st 20sq cm Yes Pain Scale: 0-10 Numeric Is Patient Pain Free? Yes WC - Nurse 3 - General Ulcer D/C NN Start: 02/14/25 14:00 Freq: Status: Active Protocol: Activity Type Activity Date Activity User E-sign Co-sign Detail Recorded Client Recorded Date Recorded By Document 02/14/25 16:02 KW [id number] 02/14/25 16:03 KW 02/14/25 16:02 Wound Care Center Nurse 3 RLE -Multi-Layered Wrap Application Unna Boot - Right -Unna- Right (Qty applied) 1 Pain Scale: 0-10 Numeric Is Patient Pain Free? Yes WC - Visit Discharge Discharge Condition Stable Ambulatory Status Ambulatory Transportation Private Auto Medication Reconcilliation completed & No provided to patient/care provider Clinical Summary of Care Provided Yes Charges/Coding Multi Select Codes Visit Charges Office Visit/Consults: 52878 OV L4 New 45 min Integumentary Integumentary CPT Codes: 77383 Therese subq tissue 20 sq cm/< Assessment/Plan Assessment/Plan (1) Non-pressure ulcer of right lower extremity with fat layer exposed: CODE(S): L97.912 - Non-pressure chronic ulcer of unspecified part of right lower leg with fat layer exposed (2) Wound of right lower extremity: CODE(S): S81.801A - Unspecified open wound, right lower leg, initial encounter (3) Dependent edema: CODE(S): R60.9 - Edema, unspecified (4) Asthma: CODE(S): J45.909 - Unspecified asthma, uncomplicated (5) COPD (chronic obstructive pulmonary disease): CODE(S): J44.9 - Chronic obstructive pulmonary disease, unspecified (6) Tobacco abuse: CODE(S): Z72.0 - Tobacco use (7) Tobacco abuse counseling: CODE(S): Z71.6 - Tobacco abuse counseling (8) Morbid obesity with BMI of 60.0-69.9, adult: CODE(S): E66.01 - Morbid (severe) obesity due to excess calories; Z68.44 - Body mass index [BMI] 60.0-69.9, adult (9) Hx of cholecystectomy: CODE(S): Z90.49 - Acquired absence of other specified parts of digestive tract (10) Hx of appendectomy: CODE(S): Z90.49 - Acquired absence of other specified parts of digestive tract (11) GERD (gastroesophageal reflux disease): CODE(S): K21.9 - Gastro-esophageal reflux disease without esophagitis (12) Hyperlipidemia: CODE(S): E78.5 - Hyperlipidemia, unspecified (13) ADHD: CODE(S): F90.9 - Attention-deficit hyperactivity disorder, unspecified type (14) Schizophrenia: CODE(S): F20.9 - Schizophrenia, unspecified (15) Asthma: CODE(S): J45.909 - Unspecified asthma, uncomplicated (16) Obstructive sleep apnea on CPAP: CODE(S): G47.33 - Obstructive sleep apnea (adult) (pediatric) PLAN: Plan This is a morbidly obese diabetic female with multiple pre-existing medical problems. The patient presented with a traumatic wound on the right pretibial surface, the origin of which was due to trauma in November 2024. According to the patient, the prior culture was positive for Staph aureus, and the patient continues to take Bactrim and Levaquin orally. She has been encouraged to complete the course of antibiotics. The patient has been counseled to discontinue her smoking habit. Optimizing her nutritional intake and glycemic control has also been encouraged. Because of the patient's morbid obesity and diabetes mellitus, we are to request a dietary consultation to be provided on an outpatient basis. The appropriate conservative measures relative to the management of chronic swelling and edema in the lower extremities have been discussed with the patient in detail. The patient has been encouraged to elevate her lower extremities is much as possible. Elevation is to be during both daytime and nighttime hours. Elevation is to be to heart level, or higher. Prolonged idle sitting has been discouraged. Activity has been encouraged. An Unna compression wrap has been applied, and will remain in place with changes anticipated twice weekly. The patient is to return in 1 week for reevaluation. Total time: 48 minutes
[2025-02-17 10:22] VITALS: BP 147/80; PULSE 80; RESP 18; TEMP 36.4; BMI 62.4
[2025-02-21 11:38] VITALS: BP 128/67; PULSE 87; RESP 20; TEMP 36.4; BMI 62.4
--- NOTE | 2025-02-21 12:18 | WC ---
PHOTO-RIGHT LINARES 02/21/25
--- NOTE | 2025-02-22 18:30 | HP.PCM_ITS ---
History of Present Illness Date of Service: 02/21/25 Chief Complaint: Traumatic wound of the right lower extremity History of Wound: This is a morbidly obese 44-year-old diabetic female who presented with a wound on her right pretibial surface. According to patient, the wound began in November 2024 as result of trauma when she fell down a flight of stairs. Since the time of her initial injury, the patient has been evaluated and treated in various medical facilities, including the [facility] Emergency Department and the Emergency Department at the [facility] [place]. She was seen at the [facility] ER on January 02, 2025, at which time she was treated with a prescription for cephalexin 500 mg p.o. every 6 hours for 10 days. More recently, the patient was evaluated in the Emergency Department at the [facility] [place] on February 07, at which time she was briefly admitted and subsequently discharged with prescriptions for oral Bactrim and Levaquin. According to the patient, a prior wound culture was positive for Staph aureus. She also indicates that her hemoglobin A1c was obtained on January 24, 2025, which was 5.9. She denies that she is diabetic. She also denies a history of myocardial infarction, congestive heart failure, cerebrovascular accident, renal disease, thyroid disease, and hypertension. She is known to be a smoker, and suffers from COPD and asthma. She also has obstructive sleep apnea, for which she uses CPAP. She is morbidly obese, with a BMI of 62.5. The patient admits to sleeping in a recliner. She is not active, and sits in idle fashion throughout most of each day. She denies a history of lower extremity thrombophlebitis. 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 exposed Wound of right lower extremity Asthma Tobacco abuse counseling Tobacco abuse Schizophrenia ADHD Hyperlipidemia GERD (gastroesophageal reflux disease) Toxoplasmosis chorioretinitis COPD (chronic obstructive pulmonary disease) Asthma Home Medications ?Medication ?Instructions ?Recorded ?Last Taken ?Type albuterol sulfate 90 mcg/actuation 2 puff inhalation Q 4H PRN PRN 07/11/24 Unknown Rx aerosol inhaler (Ventolin HFA) Wheezing ##1 celecoxib 100 mg capsule 100 mg PO DAILY 01/02/25 Unk nown History cetirizine 10 mg tablet 10 mg PO DAILY 01/02/25 Unkn own History pantoprazole 40 mg tablet,delayed 40 mg PO DAILY 01/02 Unknown History release risperidone 0.5 mg tablet 0.5 mg PO QHS 01/02/25 Unkno wn History trazodone 50 mg tablet 100 mg PO QHS 01/02/25 Unkno wn History atorvastatin 10 mg tablet (Lipitor) 10 mg PO DAILY 12/04 Unknown History bupropion HCl 150 mg 24 hr tablet, 150 mg PO DAILY 12/04 Unknown History extended release (Wellbutrin XL) fluconazole 150 mg tablet 150 mg PO QWEEK 02/14/25 Unk nown History fluticasone 250 mcg-salmeterol 50 1 inh inhalation BID 02/14/25 Unknown History mcg/dose blistr powdr for inhalation (Advair Diskus) ipratropium 0.5 mg-albuterol 3 mg ml 02/14/25 Unknown History (2.5 mg base)/3 mL nebulization soln lumateperone 21 mg capsule 21 mg PO DAILY 02/14/25 Unk nown History (Caplyta) omega-3 acid ethyl esters 1 gram cap PO 02/14/25 Unkno wn History capsule propranolol 20 mg tablet 20 mg PO BID 02/14/25 Unknow n History doxycycline monohydrate 100 mg 100 mg PO BID 02/21/25 Unknown History capsule doxycycline monohydrate 100 mg 100 mg PO BID 02/21/25 Unknown History capsule Allergy/AdvReac Type Severity Reaction Status Date / Time nystatin Allergy Intermediate Rash Verified 02/14/25 14:21 Surgical History Hx of cholecystectomy Hx of appendectomy Social History household members: friend(s) Smoking Status: Current every day smoker tobacco type: cigarettes Vital Signs Vital Signs Vital Signs: Weight Weight: 320 lb Body Mass Index (BMI) 62.4 Physical Exam Const alert, oriented x3, no apparent distress, no limitations and well nourished Constitutional Narrative: The patient is morbidly obese. Her BMI is 62.5. General Appearance: cooperative, comfortable and well developed Orientation / Consciousness: awake, oriented to person, oriented to place and oriented to time Exam Limitations: no limitations Nutritional Appearance: overweight HEENT normocephalic and head/scalp atraumatic Head and Scalp: normal to inspection, normocephalic and atraumatic Face and Sinus: normal facial exam Nose: external nose normal External Ear: external ears normal Eyes EOMs intact bilaterally General Eye: normal appearance of both eyes Neck full ROM Resp normal respiratory effort, normal air movement, no retractions and no use of accessory muscles Effort and Inspection: able to speak in complete sentences Extremity no calf tenderness General Extremity: Negative for clubbing or cyanosis Skin Wound Narrative: A wound is noted on the right pretibial surface. It appears to be full- thickness, extending through all layers of the dermis and into the subcutaneous tissues. Wound margins are well beveled. Dimensions are documented elsewhere. The wound has decreased in size significantly since the patient's last visit, and is now nearly healed. A large area of epidermal slough is noted surrounding the wound. The swelling of the patient's right lower extremity is now minimal, much improved from the patient's prior visit. There is no sign of infection or cellulitis. Neuro oriented x3, CN's II-XII intact bilaterally, moves all extremities, no focal motor deficits and no sensory deficits noted Sensorium / Orientation: awake, alert, oriented to person, oriented to place and oriented to time Speech: speech normal Psych Appearance: grossly normal and appropriate Attitude: calm Activity / Motor Behavior: appropriate eye contact Speech: normal speech Mood & Affect: euthymic mood Thought Process: normal thought process Thought Content: normal thought content Attention / Concentration: attention grossly intact Debridement Note Debridement Note No debridement was completed: No debridement was completed today (Epidermal slough is noted surrounding the wound, which was gently removed using a sterile 5 mm curette.) Post-Debridement Measurements and Additional Note: Post-Debridement Measurements/Treatment YAZAN - Nurse 1 - General Ulcer Assessment Start: 02/14/25 14:00 Freq: Status: Active Protocol: PAOLO Activity Type Activity Date Activity User E-sign Co-sign Detail Recorded Client Recorded Date Recorded By Document 02/14/25 14:00 AURELIO [id number] 02/14/25 14:17 JF Document 02/17/25 10:22 RB [id number] 02/17/25 10:24 RB Document 02/21/25 11:38 [facility] [id number] 02/21/25 11:44 BMF 02/14/25 02/17/25 02/21/25 14:00 10:22 11:38 WC - Today's Visit Information Type of service Initial Visit Nurse-only Follow-up Visit Visit (Physician/INSURANCE ACCOUNT ASSISTANT ) Arrival Mode Ambulatory Ambulatory Ambulatory Transfer Assistance None None Accompanied by friend GRADUATE INTERN PARTNER Patient Identification Verified (Name & Yes Yes Yes ) Patient Requires Transmission-Based No No No Precautions Height and Weight Height 5 ft Weight 320 lb Weight in Pounds 320.0 lbs Weight Measurement Method Estimated by Patient Body Mass Index (BMI) 62.4 62.4 62.4 BMI Classification Obese Obese Obese Vital Signs Temperature (97.8 F-99.1 F) 97.6 F L 97.6 F L 97.6 F L Temperature Source Temporal Temporal Temporal Pulse Rate (60-100) 86 80 87 Pulse Location Monitor Monitor Monitor Respiratory Rate (12-18) 18 18 20 H Respiratory rate source Observation Observation Observation Oxygen Delivery Method Room Air Blood Pressure (90/60-120/80) 187/61 H 147/80 H 128/67 H Blood Pressure Mean 103 102 87 Source Monitor Monitor Monitor Position Semi-Fowlers Semi-Fowlers Sitting Blood Pressure Location Right Arm Left Arm Left Forearm History Since Last Visit- (Skip if this is Patient's initial visit) Have you changed medications since your No Yes last visit? Any new allergies or adverse reactions No No Had a fall/change in ADL's that may No No increase risk of falls Signs or symptoms of abuse and/or No No neglect since last visit Have you been in the hospital since your No No last visit? Has dressing in place as prescribed Yes No Has compression in place as prescribed Yes No Has offloadiing in place as prescribed N/A N/A Experienced any changes in pain level or No No management Left Footwear Regular Shoe Regular Shoe Regular Shoe Right Footwear Regular Shoe Regular Shoe Regular Shoe Other Footwear REMOVED WRAP TO SHOWER 1 HR PRIOR TO APPT Pain Scale: 0-10 Numeric Is Patient Pain Free? Yes Yes Yes Lower Extremity Assessment/ Foot Assessment/ Toe Nail Assessment Right -Posterior Tibial Palpable Yes -Dorsalis Pedis Palpable Yes -Extremity Color Hyperpigmented -Hair Growth on Legs Yes -Hair Growth on Toes Yes -Temperature of Extremity Warm -Capillary Refill Less than 3 Seconds -Prior Foot Ulcer No -Thick Yes -Discolored Yes -Deformed No -Improper Length & Hygeine No Communication Assessment Preferred language [place] Able to Read Yes Able to Write Yes Communication Tools None Right Hearing Abillity Normal Left Hearing Abillity Normal Visual Assistive Devices Glasses Teaching Assessment Preferences Verbal,Written, Audio/Visual, Demonstration Barriers to Learning None Readiness To Learn Good Willingness to Engage in Self Management Med Activies Readiness to Engage in Self Management Med Activities Anxiety Level Anxious Cooperation Cooperative Perception Coherent Interest in Health Problem Asks Questions Education Importance Acknowledges Need Does Patient Smoke tobacco or other Yes substances Smoking Status Current every day smoker Is Patient Diabetic No Functional Assessment Recent Decline in Ability to Perform Denies Any Declines Culture/Restoration/Licensing Specialist Cultural/Restoration Needs that may affect No Treatment Plan Would you allow our hospital fisher gill net to No meet you for the purpose of spiritual/ emotional support? Licensing Specialist to contact place of quaker No Teaching: Wound Center [facility] Orientation/ Contacting Physician -Person Taught Patient,Family -Teaching Method Discussion, Demonstration -Response to teaching Return Demonstration, Verbalize Understanding [facility] Nurse 1 - General Ulcer Measurement Start: 02/14/25 14:00 Freq: Status: Active Protocol: Activity Type Activity Date Activity User E-sign Co-sign Detail Recorded Client Recorded Date Recorded By Document 02/14/25 14:00 [id number] 02/14/25 14:17 Document 02/17/25 10:22 RB [id number] 02/17/25 10:24 RB Document 02/21/25 11:38 [facility] [id number] 02/21/25 11:44 [facility] 02/14/25 02/17/25 02/21/25 14:00 10:22 11:38 Wound Center Nurse 1 1-right de souza -Combined with other wound No No -Current Size (cm) - Length 5 0.8 -Current Size (cm) - Width 2.6 0.6 -Current Size (cm) - Depth 0.1 0.1 -Total Square Cm 13.0 0.48 -Date of Last Picture (Recall this 02/21/25 field) -Photo Taken Yes Yes -Epithelialization Small 1-33% Medium 34-66% -Tunneling No No -Undermining/Tunneling No No -Circular Undermining No No -Exudate Amt Small Large Small -Exudate Type Serosanguineous Serosanguineous Serous -Wound Margin Flat & Intact Distinct, Flat & Intact Outline Attached -Granulation Amt Medium (34-66%) Large (67-100%) Small (1-33%) -Granulation Quality Pale Ranier Red -Slough/Fibrin Yes Yes Yes -Necrosis Amt Large (67-100%) Small (1-33%) Large (67-100%) -Necrotic Tissue Type Adherent Slough Adherent Slough Adherent Slough -Structure Exposed N/A N/A -Texture (Brandy-wound Skin Appearance) Assessed, Assessed, Localized Edema Scarring -Moisture (Brandy-wound Skin Appearance) No Abnormality, Assessed,Dry/ Dry/Scaly Scaly -Color (Brandy-wound Skin Appearance) Assessed Assessed -Temperature (Brandy-wound Skin No Abnormality No Abnormality Appearance) (Pt Warm) (Pt Warm) -Tenderness on Palpation (Brandy-wound No No Skin Appearance) -Ulcer Cleansing Soap and Water Soap and Water -Foul Odor after Cleansing No No -Anesthetic Used 5% Lidocaine 5% Lidocaine Gel Gel Lower Limb Edema Present Yes Yes Right Calf (cm) 44 41.4 Right Ankle (cm) 20.8 20.8 WC - Nurse 2 - General Ulcer CM Notes Start: 02/14/25 14:00 Freq: Status: Active Protocol: Activity Type Activity Date Activity User E-sign Co-sign Detail Recorded Client Recorded Date Recorded By Document 02/14/25 14:45 DS [id number] 02/14/25 14:48 DS Document 02/21/25 12:11 JF [id number] 02/21/25 12:15 02/14/25 02/21/25 14:45 12:11 Wound Center Nurse 2 1-right de souza -Time 14:45 12:11 -Correct Patient Yes Yes -Correct Side, Site, Position Yes No -Correct Procedure Yes No -Procedure Performed Yes No -Type of Procedure Debridement -Clinical Debridement Subcutaneous -Tissue Removed Subcutaneous -Post Debridement (cm) - Length 3.8 3.2 -Post Debridement (cm) - Width 3.0 1 -Post Debridement (cm) - Depth 0.1 0.1 -Total Square (Post) (cm) 11.40 3.2 -Area of Debridement (cm) - Length 3.8 3.2 -Area of Debridement (cm) - Width 3.0 1.0 -Total Square (Area) (cm) 11.40 3.20 -Tunneling No No -Undermining/Tunneling No No -Circular Undermining No No -Wound/Ulcer Outcome Not Healed Not Healed -Ulcer Cleansing Rinsed/ Irrigated with Saline -Foul Odor after Cleansing No No -Bioengineered Tissue No No -Bleeding Controlled with Pressure Pressure -Treatment Response Procedure Procedure Tolerated Well Tolerated Well -Offloading No -Debridement - Subq, 1st 20sq cm Yes No Pain Scale: 0-10 Numeric Is Patient Pain Free? Yes Yes - Nurse 3 - General Ulcer D/C NN Start: 02/14/25 14:00 Freq: Status: Active Protocol: Activity Type Activity Date Activity User E-sign Co-sign Detail Recorded Client Recorded Date Recorded By Document 02/14/25 16:02 [id number] 02/14/25 16:03 Document 02/17/25 10:22 RB [id number] 02/17/25 10:24 RB Document 02/21/25 12:25 [id number] 02/21/25 12:26 02/14/25 02/17/25 02/21/25 16:02 10:22 12:25 Wound Care Center Nurse 3 1-right de souza -Ulcer Cleansing Wound Cleanser RLE -Multi-Layered Wrap Application Unna Boot - Unna Boot - Unna Boot - Right Right Right -Unna- Right (Qty applied) 1 1 1 Treatment Response Procedure Tolerated Well Pain Scale: 0-10 Numeric Is Patient Pain Free? Yes Yes Yes - Visit Discharge Discharge Condition Stable Stable Stable Ambulatory Status Ambulatory Ambulatory Ambulatory Transportation Private Auto Private Auto Private Auto Medication Reconcilliation completed & No No No provided to patient/care provider Clinical Summary of Care Provided Yes Yes Yes Charges/Coding Visit Charges Office Visits / Consults: 13858 OV L3 Est 20min Assessment/Plan Assessment/Plan (1) Non-pressure ulcer of right lower extremity with fat layer exposed: CODE(S): L97.912 - Non-pressure chronic ulcer of unspecified part of right lower leg with fat layer exposed (2) Wound of right lower extremity: CODE(S): S81.801A - Unspecified open wound, right lower leg, initial encounter (3) Dependent edema: CODE(S): R60.9 - Edema, unspecified (4) Asthma: CODE(S): J45.909 - Unspecified asthma, uncomplicated (5) COPD (chronic obstructive pulmonary disease): CODE(S): J44.9 - Chronic obstructive pulmonary disease, unspecified (6) Tobacco abuse: CODE(S): Z72.0 - Tobacco use (7) Tobacco abuse counseling: CODE(S): Z71.6 - Tobacco abuse counseling (8) Morbid obesity with BMI of 60.0-69.9, adult: CODE(S): E66.01 - Morbid (severe) obesity due to excess calories; Z68.44 - Body mass index [BMI] 60.0-69.9, adult (9) Hx of cholecystectomy: CODE(S): Z90.49 - Acquired absence of other specified parts of digestive tract (10) Hx of appendectomy: CODE(S): Z90.49 - Acquired absence of other specified parts of digestive tract (11) GERD (gastroesophageal reflux disease): CODE(S): K21.9 - Gastro-esophageal reflux disease without esophagitis (12) Hyperlipidemia: CODE(S): E78.5 - Hyperlipidemia, unspecified (13) ADHD: CODE(S): F90.9 - Attention-deficit hyperactivity disorder, unspecified type (14) Schizophrenia: CODE(S): F20.9 - Schizophrenia, unspecified (15) Asthma: CODE(S): J45.909 - Unspecified asthma, uncomplicated (16) Obstructive sleep apnea on CPAP: CODE(S): G47.33 - Obstructive sleep apnea (adult) (pediatric) PLAN: Plan This is a morbidly obese diabetic female with multiple pre-existing medical problems. The patient presented with a traumatic wound on the right pretibial surface, the origin of which was due to trauma in November 2024. According to the patient, a prior culture was positive for Staph aureus, and the patient has completed a course of Bactrim and Levaquin orally. The patient has been counseled to discontinue her smoking habit. Optimizing her nutritional intake and glycemic control has also been encouraged. A dietary consultation has been arranged, and was undertaken today. The appropriate conservative measures relative to the management of chronic swelling and edema in the lower extremities have been discussed with the patient in detail. The patient has been encouraged to elevate her lower extremities as much as possible. Elevation is to be during both daytime and nighttime hours. Elevation is to be to heart level, or higher. Prolonged idle sitting has been discouraged. Activity has been encouraged. An Unna compression wrap has been applied, and is anticipated to be changed twice weekly. The patient is to return in 1 week for reevaluation. Patient's wound appears to be nearly healed. Lower extremity circumference measurements have been documented, and a prescription provided to the patient for graduated compression stockings of 20 to 30 mmHg, open toe, knee-high length. Total time: 25 minutes
[2025-02-24 13:24] VITALS: BMI 62.4
[2025-02-28 13:55] VITALS: BP 147/78; PULSE 74; RESP 18; TEMP 36.7; BMI 62.4
--- NOTE | 2025-03-01 12:15 | WC ---
PHOTO-RIGHT LINARES 02/28/25
--- NOTE | 2025-03-02 17:13 | HP.PCM_ITS ---
History of Present Illness Date of Service: 02/28/25 Chief Complaint: Traumatic wound of the right lower extremity History of Wound: This is a morbidly obese 44-year-old diabetic female who presented with a wound on her right pretibial surface. According to patient, the wound began in November 2024 as result of trauma when she fell down a flight of stairs. Since the time of her initial injury, the patient has been evaluated and treated in various medical facilities, including the [facility] Emergency Department and the Emergency Department at the [facility]. She was seen at the [facility] ER on January 02, 2025, at which time she was treated with a prescription for cephalexin 500 mg p.o. every 6 hours for 10 days. More recently, the patient was evaluated in the Emergency Department at the [facility] on February 07, at which time she was briefly admitted and subsequently discharged with prescriptions for oral Bactrim and Levaquin. According to the patient, a prior wound culture was positive for Staph aureus. She also indicates that her hemoglobin A1c was obtained on January 24, 2025, which was 5.9. She denies that she is diabetic. She also denies a history of myocardial infarction, congestive heart failure, cerebrovascular accident, renal disease, thyroid disease, and hypertension. She is known to be a smoker, and suffers from COPD and asthma. She also has obstructive sleep apnea, for which she uses CPAP. She is morbidly obese, with a BMI of 62.5. The patient admits to sleeping in a recliner. She is not active, and sits in idle fashion throughout most of each day. She denies a history of lower extremity thrombophlebitis. [facility]LY [facility] Medical History Dependent edema Obstructive sleep apnea on CPAP Morbid obesity with BMI of 60.0-69.9, adult Non-pressure ulcer of right lower extremity with fat layer exposed Wound of right lower extremity Asthma Tobacco abuse counseling Tobacco abuse Schizophrenia ADHD Hyperlipidemia GERD (gastroesophageal reflux disease) Toxoplasmosis chorioretinitis COPD (chronic obstructive pulmonary disease) Asthma Home Medications ?Medication ?Instructions ?Recorded ?Last Taken ?Type albuterol sulfate 90 mcg/actuation 2 puff inhalation Q 4H PRN PRN 07/11/24 Unknown Rx aerosol inhaler (Ventolin HFA) Wheezing ##1 celecoxib 100 mg capsule 100 mg PO DAILY 01/02/25 Unk nown History cetirizine 10 mg tablet 10 mg PO DAILY 01/02/25 Unkn own History pantoprazole 40 mg tablet,delayed 40 mg PO DAILY 01/02 Unknown History release risperidone 0.5 mg tablet 0.5 mg PO QHS 01/02/25 Unkno wn History trazodone 50 mg tablet 100 mg PO QHS 01/02/25 Unkno wn History atorvastatin 10 mg tablet (Lipitor) 10 mg PO DAILY 12/04 Unknown History bupropion HCl 150 mg 24 hr tablet, 150 mg PO DAILY 12/04 Unknown History extended release (Wellbutrin XL) fluconazole 150 mg tablet 150 mg PO QWEEK 02/14/25 Unk nown History fluticasone 250 mcg-salmeterol 50 1 inh inhalation BID 02/14/25 Unknown History mcg/dose blistr powdr for inhalation (Advair Diskus) ipratropium 0.5 mg-albuterol 3 mg ml 02/14/25 Unknown History (2.5 mg base)/3 mL nebulization soln lumateperone 21 mg capsule 21 mg PO DAILY 02/14/25 Unk nown History (Caplyta) omega-3 acid ethyl esters 1 gram cap PO 02/14/25 Unkno wn History capsule propranolol 20 mg tablet 20 mg PO BID 02/14/25 Unknow n History doxycycline monohydrate 100 mg 100 mg PO BID 02/21/25 Unknown History capsule doxycycline monohydrate 100 mg 100 mg PO BID 02/21/25 Unknown History capsule Allergy/AdvReac Type Severity Reaction Status Date / Time nystatin Allergy Intermediate Rash Verified 02/14/25 14:21 Surgical History Hx of cholecystectomy Hx of appendectomy Social History household members: friend(s) Smoking Status: Current every day smoker tobacco type: cigarettes Vital Signs Vital Signs Vital Signs: Weight Weight: 320 lb Body Mass Index (BMI) 62.4 Physical Exam Const alert, oriented x3, no apparent distress, no limitations and well nourished Constitutional Narrative: The patient is morbidly obese. Her BMI is 62.5. General Appearance: cooperative, comfortable, well developed and disheveled Orientation / Consciousness: awake, oriented to person, oriented to place and oriented to time Exam Limitations: no limitations Nutritional Appearance: overweight HEENT normocephalic and head/scalp atraumatic Head and Scalp: normal to inspection, normocephalic and atraumatic Face and Sinus: normal facial exam Nose: external nose normal External Ear: external ears normal Eyes EOMs intact bilaterally General Eye: normal appearance of both eyes Neck full ROM Resp normal respiratory effort, normal air movement, no retractions and no use of accessory muscles Effort and Inspection: able to speak in complete sentences Extremity no calf tenderness General Extremity: Negative for clubbing or cyanosis Skin Wound Narrative: A wound is noted on the right pretibial surface. It now appears to be essentially healed. There is some sloughing epidermis at the site of the wound, though the wound is largely epithelialized. Dimensions are documented elsewhere. The swelling of the patient's right lower extremity is minimal, much improved from the patient's prior visits. There is no sign of infection or cellulitis. Neuro oriented x3, CN's II-XII intact bilaterally, moves all extremities, no focal motor deficits and no sensory deficits noted Sensorium / Orientation: awake, alert, oriented to person, oriented to place and oriented to time Speech: speech normal Psych Appearance: grossly normal and appropriate Attitude: calm Activity / Motor Behavior: appropriate eye contact Speech: normal speech Mood & Affect: euthymic mood Thought Process: normal thought process Thought Content: normal thought content Attention / Concentration: attention grossly intact Debridement Note Debridement Note No debridement was completed: No debridement was completed today Post-Debridement Measurements and Additional Note: Post-Debridement Measurements/Treatment YAZAN - Nurse 1 - General Ulcer Assessment Start: 02/14/25 14:00 Freq: Status: Active Protocol: YAZAN.RACHNA Activity Type Activity Date Activity User E-sign Co-sign Detail Recorded Client Recorded Date Recorded By Document 02/14/25 14:00 JF [id number] 02/14/25 14:17 JF Document 02/17/25 10:22 RB [id number] 02/17/25 10:24 RB Document 02/21/25 11:38 BMF [id number] 02/21/25 11:44 BMF Document 02/24/25 13:24 DS [id number] 02/24/25 13:25 DS Document 02/28/25 13:55 KW [id number] 02/28/25 13:57 KW 02/14/25 02/17/25 02/21/25 14:00 10:22 11:38 WC - Today's Visit Information Type of service Initial Visit Nurse-only Follow-up Visit Visit (Physician/HEAD OF BUSINESS DEVELOPMENT ) Arrival Mode Ambulatory Ambulatory Ambulatory Transfer Assistance None None Accompanied by friend FAMILY SPECIALIST PARTNER Patient Identification Verified (Name & Yes Yes Yes ) Patient Requires Transmission-Based No No No Precautions Safety Precautions Height and Weight Height 5 ft Weight 320 lb Weight in Pounds 320.0 lbs Weight Measurement Method Estimated by Patient Body Mass Index (BMI) 62.4 62.4 62.4 BMI Classification Obese Obese Obese Vital Signs Temperature (97.8 F-99.1 F) 97.6 F L 97.6 F L 97.6 F L Temperature Source Temporal Temporal Temporal Pulse Rate (60-100) 86 80 87 Pulse Location Monitor Monitor Monitor Respiratory Rate (12-18) 18 18 20 H Respiratory rate source Observation Observation Observation Oxygen Delivery Method Room Air Blood Pressure (90/60-120/80) 187/61 H 147/80 H 128/67 H Blood Pressure Mean 103 102 87 Source Monitor Monitor Monitor Position Semi-Fowlers Semi-Fowlers Sitting Blood Pressure Location Right Arm Left Arm Left Forearm History Since Last Visit- (Skip if this is Patient's initial visit) Have you changed medications since your No Yes last visit? Any new allergies or adverse reactions No No Had a fall/change in ADL's that may No No increase risk of falls Signs or symptoms of abuse and/or No No neglect since last visit Have you been in the hospital since your No No last visit? Has dressing in place as prescribed Yes No Has compression in place as prescribed Yes No Has offloadiing in place as prescribed N/A N/A Experienced any changes in pain level or No No management Left Footwear Regular Shoe Regular Shoe Regular Shoe Right Footwear Regular Shoe Regular Shoe Regular Shoe Other Footwear REMOVED WRAP TO SHOWER 1 HR PRIOR TO APPT Pain Scale: 0-10 Numeric Is Patient Pain Free? Yes Yes Yes Lower Extremity Assessment/ Foot Assessment/ Toe Nail Assessment Right -Posterior Tibial Palpable Yes -Dorsalis Pedis Palpable Yes -Extremity Color Hyperpigmented -Hair Growth on Legs Yes -Hair Growth on Toes Yes -Temperature of Extremity Warm -Capillary Refill Less than 3 Seconds -Prior Foot Ulcer No -Thick Yes -Discolored Yes -Deformed No -Improper Length & Hygeine No Communication Assessment Preferred language Pashto Able to Read Yes Able to Write Yes Communication Tools None Right Hearing Abillity Normal Left Hearing Abillity Normal Visual Assistive Devices Glasses Teaching Assessment Preferences Verbal,Written, Audio/Visual, Demonstration Barriers to Learning None Readiness To Learn Good Willingness to Engage in Self Management Med Activies Readiness to Engage in Self Management Med Activities Anxiety Level Anxious Cooperation Cooperative Perception Coherent Interest in Health Problem Asks Questions Education Importance Acknowledges Need Does Patient Smoke tobacco or other Yes substances Smoking Status Current every day smoker Is Patient Diabetic No Functional Assessment Recent Decline in Ability to Perform Denies Any Declines Culture/Sikh/Reduction Plant Supervisor Cultural/Sikh Needs that may affect No Treatment Plan Would you allow our hospital sales advisor to No meet you for the purpose of spiritual/ emotional support? Reduction Plant Supervisor to contact place of sikhism No Teaching: Wound Center [facility] Orientation/ Contacting Physician -Person Taught Patient,Family -Teaching Method Discussion, Demonstration -Response to teaching Return Demonstration, Verbalize Understanding 02/24/25 02/28/25 13:24 13:55 - Today's Visit Information Type of service Nurse-only Follow-up Visit Visit (Physician/HEAD OF BUSINESS DEVELOPMENT ) Arrival Mode Ambulatory Ambulatory Transfer Assistance Accompanied by Patient Identification Verified (Name & Yes Yes ) Patient Requires Transmission-Based No Precautions Safety Precautions Fall Prevention Height and Weight Height Weight Weight in Pounds Weight Measurement Method Body Mass Index (BMI) 62.4 62.4 BMI Classification Obese Obese Vital Signs Temperature (97.8 F-99.1 F) 98.0 F Temperature Source Temporal Pulse Rate (60-100) 74 Pulse Location Monitor Respiratory Rate (12-18) 18 Respiratory rate source Observation Oxygen Delivery Method Room Air Blood Pressure (90/60-120/80) 147/78 H Blood Pressure Mean 101 Source Monitor Position Semi-Fowlers Blood Pressure Location Left Arm History Since Last Visit- (Skip if this is Patient's initial visit) Have you changed medications since your No last visit? Any new allergies or adverse reactions No Had a fall/change in ADL's that may No increase risk of falls Signs or symptoms of abuse and/or No neglect since last visit Have you been in the hospital since your No last visit? Has dressing in place as prescribed Yes Has compression in place as prescribed Yes Has offloadiing in place as prescribed N/A Experienced any changes in pain level or No management Left Footwear Regular Shoe Right Footwear Regular Shoe Other Footwear Pain Scale: 0-10 Numeric Is Patient Pain Free? Yes Yes Lower Extremity Assessment/ Foot Assessment/ Toe Nail Assessment Right -Posterior Tibial Palpable -Dorsalis Pedis Palpable -Extremity Color -Hair Growth on Legs -Hair Growth on Toes -Temperature of Extremity -Capillary Refill -Prior Foot Ulcer -Thick -Discolored -Deformed -Improper Length & Hygeine Communication Assessment Preferred language Able to Read Able to Write Communication Tools Right Hearing Abillity Left Hearing Abillity Visual Assistive Devices Teaching Assessment Preferences Barriers to Learning Readiness To Learn Willingness to Engage in Self Management Activies Readiness to Engage in Self Management Activities Anxiety Level Cooperation Perception Interest in Health Problem Education Importance Does Patient Smoke tobacco or other substances Smoking Status Is Patient Diabetic Functional Assessment Recent Decline in Ability to Perform Culture/Sikh/Reduction Plant Supervisor Cultural/Sikh Needs that may affect Treatment Plan Would you allow our hospital sales advisor to meet you for the purpose of spiritual/ emotional support? Reduction Plant Supervisor to contact place of sikhism Teaching: Wound Center [facility] Orientation/ Contacting Physician -Person Taught -Teaching Method -Response to teaching - Nurse 1 - General Ulcer Measurement Start: 02/14/25 14:00 Freq: Status: Active Protocol: Activity Type Activity Date Activity User E-sign Co-sign Detail Recorded Client Recorded Date Recorded By Document 02/14/25 14:00 [id number] 02/14/25 14:17 JF Document 02/17/25 10:22 RB [id number] 02/17/25 10:24 RB Document 02/21/25 11:38 [facility] [id number] 02/21/25 11:44 [facility] Document 02/28/25 13:55 KW [id number] 02/28/25 13:57 KW 02/14/25 02/17/25 02/21/25 14:00 10:22 11:38 Wound Center Nurse 1 1-right de souza -Combined with other wound No No -Current Size (cm) - Length 5 0.8 -Current Size (cm) - Width 2.6 0.6 -Current Size (cm) - Depth 0.1 0.1 -Total Square Cm 13.0 0.48 -Date of Last Picture (Recall this 02/21/25 field) -Photo Taken Yes Yes -Epithelialization Small 1-33% Medium 34-66% -Tunneling No No -Undermining/Tunneling No No -Circular Undermining No No -Exudate Amt Small Large Small -Exudate Type Serosanguineous Serosanguineous Serous -Wound Margin Flat & Intact Distinct, Flat & Intact Outline Attached -Granulation Amt Medium (34-66%) Large (67-100%) Small (1-33%) -Granulation Quality Pale [place] Red -Slough/Fibrin Yes Yes Yes -Necrosis Amt Large (67-100%) Small (1-33%) Large (67-100%) -Necrotic Tissue Type Adherent Slough Adherent Slough Adherent Slough -Structure Exposed N/A N/A -Texture (Brandy-wound Skin Appearance) Assessed, Assessed, Localized Edema Scarring -Moisture (Brandy-wound Skin Appearance) No Abnormality, Assessed,Dry/ Dry/Scaly Scaly -Color (Rbandy-wound Skin Appearance) Assessed Assessed -Temperature (Brandy-wound Skin No Abnormality No Abnormality Appearance) (Pt Warm) (Pt Warm) -Tenderness on Palpation (Brandy-wound No No Skin Appearance) -Ulcer Cleansing Soap and Water Soap and Water -Foul Odor after Cleansing No No -Anesthetic Used 5% Lidocaine 5% Lidocaine Gel Gel Lower Limb Edema Present Yes Yes Right Calf (cm) 44 41.4 Right Ankle (cm) 20.8 20.8 02/28/25 13:55 Wound Center Nurse 1 1-right de souza -Combined with other wound -Current Size (cm) - Length 0.1 -Current Size (cm) - Width 0.1 -Current Size (cm) - Depth 0.1 -Total Square Cm 0.01 -Date of Last Picture (Recall this 02/28/25 field) -Photo Taken -Epithelialization -Tunneling -Undermining/Tunneling -Circular Undermining -Exudate Amt None Present -Exudate Type -Wound Margin -Granulation Amt -Granulation Quality -Slough/Fibrin -Necrosis Amt -Necrotic Tissue Type -Structure Exposed -Texture (Brandy-wound Skin Appearance) Assessed -Moisture (Brandy-wound Skin Appearance) Assessed,Dry/ Scaly -Color (Brandy-wound Skin Appearance) Assessed, Erythema -Temperature (Brandy-wound Skin No Abnormality Appearance) (Pt Warm) -Tenderness on Palpation (Brandy-wound No Skin Appearance) -Ulcer Cleansing Soap and Water -Foul Odor after Cleansing No -Anesthetic Used 5% Lidocaine Gel Lower Limb Edema Present Right Calf (cm) 40.2 Right Ankle (cm) 20.5 WC - Nurse 2 - General Ulcer CM Notes Start: 02/14/25 14:00 Freq: Status: Active Protocol: Activity Type Activity Date Activity User E-sign Co-sign Detail Recorded Client Recorded Date Recorded By Document 02/14/25 14:45 DS [id number] 02/14/25 14:48 DS Document 02/21/25 12:11 JF [id number] 02/21/25 12:15 JF Document 02/28/25 14:04 BMF [id number] 02/28/25 14:15 BMF 02/14/25 02/21/25 02/28/25 14:45 12:11 14:04 Wound Center Nurse 2 1-right de souza -Time 14:45 12:11 14:05 -Correct Patient Yes Yes -Correct Side, Site, Position Yes No -Correct Procedure Yes No -Procedure Performed Yes No No -Type of Procedure Debridement -Clinical Debridement Subcutaneous -Tissue Removed Subcutaneous -Post Debridement (cm) - Length 3.8 3.2 0.1 -Post Debridement (cm) - Width 3.0 1 0.2 -Post Debridement (cm) - Depth 0.1 0.1 0.1 -Total Square (Post) (cm) 11.40 3.2 0.02 -Area of Debridement (cm) - Length 3.8 3.2 0.1 -Area of Debridement (cm) - Width 3.0 1.0 0.2 -Total Square (Area) (cm) 11.40 3.20 0.02 -Tunneling No No No -Undermining/Tunneling No No No -Circular Undermining No No No -Wound/Ulcer Outcome Not Healed Not Healed Not Healed -Ulcer Cleansing Rinsed/ Irrigated with Saline -Foul Odor after Cleansing No No -Bioengineered Tissue No No -Bleeding Controlled with Pressure Pressure NA -Treatment Response Procedure Procedure Tolerated Well Tolerated Well -Offloading No -Debridement - Subq, 1st 20sq cm Yes No Pain Scale: 0-10 Numeric Is Patient Pain Free? Yes Yes Yes YAZAN - Nurse 3 - General Ulcer D/C NN Start: 02/14/25 14:00 Freq: Status: Active Protocol: Activity Type Activity Date Activity User E-sign Co-sign Detail Recorded Client Recorded Date Recorded By Document 02/14/25 16:02 KW [id number] 02/14/25 16:03 KW Document 02/17/25 10:22 RB [id number] 02/17/25 10:24 RB Document 02/21/25 12:25 KW [id number] 02/21/25 12:26 KW Document 02/24/25 13:24 DS [id number] 02/24/25 13:25 DS Document 02/28/25 14:24 BMF [id number] 02/28/25 14:24 BMF 02/14/25 02/17/25 02/21/25 16:02 10:22 12:25 Wound Care Center Nurse 3 1-right de souza -Ulcer Cleansing Wound Cleanser -Foul Odor after Cleansing -Primary Dressing Applied -Hydrogel -Silicone Border Foam 4x4 BLE -Tubular Bandage -Size of Tubigrip Used -Size E ($) RLE -Multi-Layered Wrap Application Unna Boot - Unna Boot - Unna Boot - Right Right Right -Unna- Right (Qty applied) 1 1 1 Treatment Response Procedure Tolerated Well Pain Scale: 0-10 Numeric Is Patient Pain Free? Yes Yes Yes WC - Visit Discharge Discharge Condition Stable Stable Stable Ambulatory Status Ambulatory Ambulatory Ambulatory Transportation Private Auto Private Auto Private Auto Accompanied by Medication Reconcilliation completed & No No No provided to patient/care provider Clinical Summary of Care Provided Yes Yes Yes 02/24/25 02/28/25 13:24 14:24 Wound Care Center Nurse 3 1-right de souza -Ulcer Cleansing Soap and Water Rinsed/ Irrigated with Saline -Foul Odor after Cleansing No -Primary Dressing Applied C Hydrogel, Silicone Border Foam 4x4 -Hydrogel 1 -Silicone Border Foam 4x4 1 BLE -Tubular Bandage Double Layer -Size of Tubigrip Used Size E -Size E ($) 2 RLE -Multi-Layered Wrap Application Unna Boot - Right -Unna- Right (Qty applied) 1 Treatment Response Pain Scale: 0-10 Numeric Is Patient Pain Free? Yes Yes WC - Visit Discharge Discharge Condition Stable Stable Ambulatory Status Ambulatory Ambulatory Transportation Private Auto Private Auto Accompanied by SIGNIFICANT OTHER Medication Reconcilliation completed & provided to patient/care provider Clinical Summary of Care Provided Charges/Coding Visit Charges Office Visits / Consults: [id number] OV L3 Est 20min Assessment/Plan Assessment/Plan (1) Non-pressure ulcer of right lower extremity with fat layer exposed: CODE(S): L97.912 - Non-pressure chronic ulcer of unspecified part of right lower leg with fat layer exposed (2) Wound of right lower extremity: CODE(S): S81.801A - Unspecified open wound, right lower leg, initial encounter (3) Dependent edema: CODE(S): R60.9 - Edema, unspecified (4) Asthma: CODE(S): J45.909 - Unspecified asthma, uncomplicated (5) COPD (chronic obstructive pulmonary disease): CODE(S): J44.9 - Chronic obstructive pulmonary disease, unspecified (6) Tobacco abuse: CODE(S): Z72.0 - Tobacco use (7) Tobacco abuse counseling: CODE(S): Z71.6 - Tobacco abuse counseling (8) Morbid obesity with BMI of 60.0-69.9, adult: CODE(S): E66.01 - Morbid (severe) obesity due to excess calories; Z68.44 - Body mass index [BMI] 60.0-69.9, adult (9) Hx of cholecystectomy: CODE(S): Z90.49 - Acquired absence of other specified parts of digestive tract (10) Hx of appendectomy: CODE(S): Z90.49 - Acquired absence of other specified parts of digestive tract (11) GERD (gastroesophageal reflux disease): CODE(S): K21.9 - Gastro-esophageal reflux disease without esophagitis (12) Hyperlipidemia: CODE(S): E78.5 - Hyperlipidemia, unspecified (13) ADHD: CODE(S): F90.9 - Attention-deficit hyperactivity disorder, unspecified type (14) Schizophrenia: CODE(S): F20.9 - Schizophrenia, unspecified (15) Asthma: CODE(S): J45.909 - Unspecified asthma, uncomplicated (16) Obstructive sleep apnea on CPAP: CODE(S): G47.33 - Obstructive sleep apnea (adult) (pediatric) PLAN: Plan This is a morbidly obese diabetic female with multiple pre-existing medical problems. The patient initially presented with a traumatic wound on the right pretibial surface, the origin of which was due to trauma in November 2024. According to the patient, a prior culture was positive for Staph aureus, and the patient has completed a course of Bactrim and Levaquin orally. The patient has been counseled to discontinue her smoking habit. Optimizing her nutritional intake and glycemic control has also been encouraged. A dietary consultation has been arranged, and was undertaken recently. The appropriate conservative measures relative to the management of chronic swelling and edema in the lower extremities have been discussed with the patient in detail. The patient has been encouraged to elevate her lower extremities as much as possible. Elevation is to be during both daytime and nighttime hours. Elevation is to be to heart level, or higher. Prolonged idle sitting has been discouraged. Activity has been encouraged. The patient has now obtained graduated compression stockings of 20 to 30 mmHg compression, which are to be donned on a daily basis. The patient's wound appears to be essentially healed, largely epithelialized. Therefore, collagen hydrogel is to be applied topically on a daily basis, and the patient is to follow-up in 2 weeks for reassessment to ensure that her wound remains healed. The patient has lost 14 pounds in recent weeks as result of dietary modification. Total time: 22 minutes
== END 2025-03-12 23:59 | disposition home or self-care (01) ==
LOC: WC 13:45
PROVIDERS: PCP Nurse Practitioner Family; Referring Provider Nurse Practitioner Family; Visit Provider Surgery
DX: E11.622 Type 2 diabetes mellitus with other skin ulcer (principal); L97.812 Non-pressure chronic ulcer of other part of right lower leg with fat layer exposed; J44.89 Other specified chronic obstructive pulmonary disease; E66.01 Morbid (severe) obesity due to excess calories; Z68.44 Body mass index [BMI] 60.0-69.9, adult; G47.33 Obstructive sleep apnea (adult) (pediatric); F17.210 Nicotine dependence, cigarettes, uncomplicated; Z71.6 Tobacco abuse counseling; S81.812S Laceration without foreign body, left lower leg, sequela; W10.9XXS Fall (on) (from) unspecified stairs and steps, sequela
CPT/HCPCS: 11042; 29580; 97802; 99213; G0463

== ENCOUNTER 2025-03-14 11:22 | Outpatient (RCR) | payer MEDICAID, SELFPAY ==
[2025-03-14 13:53] VITALS: BP 163/84; PULSE 74; RESP 20; TEMP 36.2
--- NOTE | 2025-03-16 09:56 | WC ---
PHOTO- RIGHT LINARES 03/14/25
--- NOTE | 2025-03-17 13:34 | PCM.WC.HP ---
History of Present Illness Date of Service: 03/14/25 Chief Complaint: Traumatic wound of the right lower extremity History of Wound: This is a morbidly obese 44-year-old diabetic female who presented with a wound on her right pretibial surface. According to patient, the wound began in November 2024 as result of trauma when she fell down a flight of stairs. Since the time of her initial injury, the patient has been evaluated and treated in various medical facilities, including the [facility] Emergency Department and the Emergency Department at the [facility]. She was seen at the [facility] ER on January 02, 2025, at which time she was treated with a prescription for cephalexin 500 mg p.o. every 6 hours for 10 days. More recently, the patient was evaluated in the Emergency Department at the [facility] on February 07, at which time she was briefly admitted and subsequently discharged with prescriptions for oral Bactrim and Levaquin. According to the patient, a prior wound culture was positive for Staph aureus. She also indicates that her hemoglobin A1c was obtained on January 24, 2025, which was 5.9. She denies that she is diabetic. She also denies a history of myocardial infarction, congestive heart failure, cerebrovascular accident, renal disease, thyroid disease, and hypertension. She is known to be a smoker, and suffers from COPD and asthma. She also has obstructive sleep apnea, for which she uses CPAP. She is morbidly obese, with a BMI of 62.5. The patient admits to sleeping in a recliner. She is not active, and sits in idle fashion throughout most of each day. She denies a history of lower extremity thrombophlebitis. 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 exposed Asthma Tobacco abuse Schizophrenia ADHD Hyperlipidemia GERD (gastroesophageal reflux disease) Toxoplasmosis chorioretinitis COPD (chronic obstructive pulmonary disease) Home Medications ?Medication ?Instructions ?Recorded ?Last Taken ?Type albuterol sulfate 90 mcg/actuation 2 puff inhalation Q4H PRN PRN 07/11/24 Unknown Rx aerosol inhaler (Ventolin HFA) Wheezing ##1 celecoxib 100 mg capsule 100 mg PO DAILY 01/02/25 Unknown History cetirizine 10 mg tablet 10 mg PO DAILY 01/02/25 Unknown History pantoprazole 40 mg tablet,delayed 40 mg PO DAILY 01/02/25 Unknown History release risperidone 0.5 mg tablet 0.5 mg PO QHS 01/02/25 Unknown History trazodone 50 mg tablet 100 mg PO QHS 01/02/25 Unknown History atorvastatin 10 mg tablet (Lipitor) 10 mg PO DAILY 02/14/25 Unknown History bupropion HCl 150 mg 24 hr tablet, 150 mg PO DAILY 02/14/25 Unknown History extended release (Wellbutrin XL) fluconazole 150 mg tablet 150 mg PO QWEEK 02/14/25 Unknown History fluticasone 250 mcg-salmeterol 50 1 inh inhalation BID 02/14/25 Unknown History mcg/dose blistr powdr for inhalation (Advair Diskus) ipratropium 0.5 mg-albuterol 3 mg ml 02/14/25 Unknown History (2.5 mg base)/3 mL nebulization soln lumateperone 21 mg capsule 21 mg PO DAILY 02/14/25 Unknown History (Caplyta) omega-3 acid ethyl esters 1 gram cap PO 02/14/25 Unknown History capsule propranolol 20 mg tablet 20 mg PO BID 02/14/25 Unknown History doxycycline monohydrate 100 mg 100 mg PO BID 02/21/25 Unknown History capsule doxycycline monohydrate 100 mg 100 mg PO BID 02/21/25 Unknown History capsule furosemide 20 mg tablet 20 mg PO DAILY 03/08/25 Unknown History potassium chloride 10 mEq 10 meq PO DAILY 03/08/25 Unknown History tablet,extended release venlafaxine 225 mg tablet,extended 225 mg PO DAILY 03/08/25 Unknown History release 24 hr Allergy/AdvReac Type Severity Reaction Status Date / Time nystatin Allergy Intermediate Rash Verified 02/14/25 14:21 Surgical History Hx of cholecystectomy Hx of appendectomy Social History household members: friend(s) Smoking Status: Current every day smoker tobacco type: cigarettes alcohol intake: current alcohol intake frequency: holidays/special occasions only substance use type: does not use Physical Exam Const alert, oriented x3, no apparent distress, no limitations and well nourished Constitutional Narrative: The patient is morbidly obese. Her BMI is 62.5. General Appearance: cooperative, comfortable, well developed and disheveled Orientation / Consciousness: awake, oriented to person, oriented to place and oriented to time Exam Limitations: no limitations Nutritional Appearance: overweight HEENT normocephalic and head/scalp atraumatic Head and Scalp: normal to inspection, normocephalic and atraumatic Face and Sinus: normal facial exam Nose: external nose normal External Ear: external ears normal Eyes EOMs intact bilaterally General Eye: normal appearance of both eyes Neck full ROM Resp normal respiratory effort, normal air movement, no retractions and no use of accessory muscles Effort and Inspection: able to speak in complete sentences Extremity no calf tenderness General Extremity: Negative for clubbing or cyanosis Skin Wound Narrative: The wound on the patient's right pretibial surface remains healed and epithelialized. There is no sign of infection or cellulitis. Neuro oriented x3, CN's II-XII intact bilaterally, moves all extremities, no focal motor deficits and no sensory deficits noted Sensorium / Orientation: awake, alert, oriented to person, oriented to place and oriented to time Speech: speech normal Psych Appearance: grossly normal and appropriate Attitude: calm Activity / Motor Behavior: appropriate eye contact Speech: normal speech Mood & Affect: euthymic mood Thought Process: normal thought process Thought Content: normal thought content Attention / Concentration: attention grossly intact Debridement Note Debridement Note No debridement was completed: No debridement was completed today (There are no open wounds or ulcerations.) Post-Debridement Measurements and Additional Note: Post-Debridement Measurements/Treatment - Nurse 1 - General Ulcer Assessment Start: 03/14/25 13:53 Freq: Status: Active Protocol: WC.LOWEXT Activity Type Activity Date Activity User E-sign Co-sign Detail Recorded Client Recorded Date Recorded By Document 03/14/25 13:53 [facility] [id number] 03/14/25 14:07 [facility] 03/14/25 13:53 - Today's Visit Information Type of service Follow-up Visit (Physician/RESOLUTE PROFESSIONAL ) Arrival Mode Ambulatory Transfer Assistance None Patient Identification Verified (Name & Yes ) Patient Requires Transmission-Based No Precautions Vital Signs Temperature (97.8 F-99.1 F) 97.1 F L Temperature Source Temporal Pulse Rate (60-100) 74 Pulse Location Monitor Respiratory Rate (12-18) 20 H Respiratory rate source Observation Oxygen Delivery Method Room Air Blood Pressure (90/60-120/80) 163/84 H Blood Pressure Mean 110 Source Monitor Position Sitting Blood Pressure Location Left Arm History Since Last Visit- (Skip if this is Patient's initial visit) Have you changed medications since your No last visit? Any new allergies or adverse reactions No Had a fall/change in ADL's that may No increase risk of falls Signs or symptoms of abuse and/or No neglect since last visit Have you been in the hospital since your No last visit? Has dressing in place as prescribed Yes Has compression in place as prescribed No Has offloadiing in place as prescribed N/A Experienced any changes in pain level or No management Left Footwear Regular Shoe Right Footwear Regular Shoe Pain Scale: 0-10 Numeric Is Patient Pain Free? Yes - Nurse 1 - General Ulcer Measurement Start: 03/14/25 13:53 Freq: Status: Active Protocol: Activity Type Activity Date Activity User E-sign Co-sign Detail Recorded Client Recorded Date Recorded By Document 03/14/25 13:53 [facility] [id number] 03/14/25 14:07 [facility] 03/14/25 13:53 Wound Center Nurse 1 1-right de souza -Combined with other wound No -Current Size (cm) - Length 0.1 -Current Size (cm) - Width 0.1 -Current Size (cm) - Depth 0.1 -Total Square Cm 0.01 -Date of Last Picture (Recall this 03/14/25 field) -Photo Taken Yes -Epithelialization Large 67-100% -Texture (Brandy-wound Skin Appearance) Assessed -Moisture (Brandy-wound Skin Appearance) Assessed -Color (Brandy-wound Skin Appearance) Assessed -Temperature (Brandy-wound Skin No Abnormality Appearance) (Pt Warm) -Tenderness on Palpation (Brandy-wound No Skin Appearance) -Ulcer Cleansing Rinsed/ Irrigated with Saline -Foul Odor after Cleansing No Lower Limb Edema Present Yes Right Calf (cm) 41.3 Right Ankle (cm) 20.4 - Nurse 2 - General Ulcer CM Notes Start: 03/14/25 13:53 Freq: Status: Active Protocol: Activity Type Activity Date Activity User E-sign Co-sign Detail Recorded Client Recorded Date Recorded By Document 03/14/25 14:12 [id number] 03/14/25 14:13 03/14/25 14:12 Wound Center Nurse 2 1-right de souza -Correct Patient Yes -Correct Side, Site, Position No -Correct Procedure No -Procedure Performed No -Post Debridement (cm) - Length 0 -Post Debridement (cm) - Width 0 -Post Debridement (cm) - Depth 0 -Total Square (Post) (cm) 0 -Area of Debridement (cm) - Length 0 -Area of Debridement (cm) - Width 0 -Total Square (Area) (cm) 0 -Wound/Ulcer Outcome Healed- Epithelialized Pain Scale: 0-10 Numeric Is Patient Pain Free? Yes - Nurse 3 - General Ulcer D/C NN Start: 03/14/25 13:53 Freq: Status: Active Protocol: Activity Type Activity Date Activity User E-sign Co-sign Detail Recorded Client Recorded Date Recorded By Document 03/14/25 14:30 [facility] [id number] 03/14/25 14:31 [facility] 03/14/25 14:30 Wound Care Center Nurse 3 BLE -Tubular Bandage Double Layer -Size of Tubigrip Used Size E -Size E ($) 2 Treatment Response Procedure Tolerated Well Pain Scale: 0-10 Numeric Is Patient Pain Free? Yes WC - Visit Discharge Discharge Condition Stable Ambulatory Status Ambulatory Transportation Private Auto Accompanied by girlfriend Charges/Coding Visit Charges Office Visits / Consults: [id number] OV L3 Est 20min Assessment/Plan Assessment/Plan (1) Non-pressure ulcer of right lower extremity with fat layer exposed: CODE(S): L97.912 - Non-pressure chronic ulcer of unspecified part of right lower leg with fat layer exposed (2) Wound of right lower extremity: CODE(S): S81.801A - Unspecified open wound, right lower leg, initial encounter (3) Dependent edema: CODE(S): R60.9 - Edema, unspecified (4) Asthma: CODE(S): J45.909 - Unspecified asthma, uncomplicated (5) COPD (chronic obstructive pulmonary disease): CODE(S): J44.9 - Chronic obstructive pulmonary disease, unspecified (6) Tobacco abuse: CODE(S): Z72.0 - Tobacco use (7) Tobacco abuse counseling: CODE(S): Z71.6 - Tobacco abuse counseling (8) Morbid obesity with BMI of 60.0-69.9, adult: CODE(S): E66.01 - Morbid (severe) obesity due to excess calories; Z68.44 - Body mass index [BMI] 60.0-69.9, adult (9) Hx of cholecystectomy: CODE(S): Z90.49 - Acquired absence of other specified parts of digestive tract (10) Hx of appendectomy: CODE(S): Z90.49 - Acquired absence of other specified parts of digestive tract (11) GERD (gastroesophageal reflux disease): CODE(S): K21.9 - Gastro-esophageal reflux disease without esophagitis (12) Hyperlipidemia: CODE(S): E78.5 - Hyperlipidemia, unspecified (13) ADHD: CODE(S): F90.9 - Attention-deficit hyperactivity disorder, unspecified type (14) Schizophrenia: CODE(S): F20.9 - Schizophrenia, unspecified (15) Asthma: CODE(S): J45.909 - Unspecified asthma, uncomplicated (16) Obstructive sleep apnea on CPAP: CODE(S): G47.33 - Obstructive sleep apnea (adult) (pediatric) PLAN: Plan This is a morbidly obese, diabetic female with multiple pre-existing medical problems. The patient initially presented with a traumatic wound on the right pretibial surface, the origin of which was due to trauma in November 2024. According to the patient, a prior culture was positive for Staph aureus, and the patient completed a course of Bactrim and Levaquin orally. The patient has been counseled to discontinue her smoking habit. Weight loss and optimization of her nutritional intake and glycemic control has also been encouraged. A dietary consultation was undertaken recently. The appropriate conservative measures relative to the management of chronic swelling and edema in the lower extremities have been discussed with the patient in detail. The patient has been encouraged to elevate her lower extremities as much as possible. Elevation is to be during both daytime and nighttime hours. Elevation is to be to heart level, or higher. Prolonged idle sitting has been discouraged. Activity has been encouraged. The patient has obtained graduated compression stockings of 20 to 30 mmHg compression, ordered on the Internet. However, she now claims that they do not fit properly. Therefore, she has been provided a prescription for knee-high graduated compression stockings of 20 to 30 mmHg compression, which are to be obtained and donned on a daily basis. She has been encouraged to purchase the stockings at a local medical supply store, where she can be properly measured and fitted for the stockings. The patient's wound is now healed, and the patient is to be discharged. She is to follow-up henceforth on an as needed basis. Total time: 22 minutes
== END 2025-04-11 15:46 | disposition home or self-care (01) ==
LOC: WC 11:22
PROVIDERS: PCP Nurse Practitioner Family; Referring Provider Nurse Practitioner Family; Visit Provider Surgery
DX: Z09 Encounter for follow-up examination after completed treatment for conditions other than malignant neoplasm (principal); J44.89 Other specified chronic obstructive pulmonary disease; E66.01 Morbid (severe) obesity due to excess calories; Z68.44 Body mass index [BMI] 60.0-69.9, adult; K21.9 Gastro-esophageal reflux disease without esophagitis; G47.33 Obstructive sleep apnea (adult) (pediatric); R60.0 Localized edema
CPT/HCPCS: 99213; G0463

== ENCOUNTER 2025-07-03 21:33 | Observation (INO) | payer MEDICAID, SELFPAY ==
[2025-07-03 21:34] VITALS: BP 191/115; PULSE 79; RESP 30; TEMP 36.2; O2SAT 89
[2025-07-03 21:35] VITALS: BP 165/122; PULSE 88; RESP 25; TEMP 36.2; O2SAT 81; BMI 69.0
[2025-07-03 22:10] VITALS: O2SAT 92
--- NOTE | 2025-07-03 22:10 | EKG12_ITS ---
Test Reason : DYSRHYTHMIA Blood Pressure : */* mmHG Vent. Rate : 76 BPM Atrial Rate : 76 BPM P-R Int : 148 ms QRS Dur : 82 ms QT Int : 478 ms P-R-T Axes : 41 80 51 degrees QTcB Int : 537 ms Normal sinus rhythm Low voltage QRS Nonspecific T wave abnormality Abnormal ECG Confirmed by Deric Gross ([id number]), editor newspaper RAFAEL PEDROZA ([id number]) on 07/04/2025 10:57:32 AM Also confirmed by Deric Gross ([id number]), editor newspaper [employer]FAEL PEDROZA ([id number]) on 07/05/2025 11:05:59 AM Referred By: Confirmed By: Deric Gross
[2025-07-03 22:21] LABS: Hematocrit 41.8 % (37-47); Hemoglobin 13.3 g/dL (12.0-15.0); Immature Granulocytes Count 0.230 X10^3/uL (0.0-0.0); Mean Corp Hgb Conc 31.8 g/dL (32-36); Mean Corpuscular Volume 81.3 fL (81-99); Mean Platelet Vol. 9.3 fl (6.2-12.0); NRBC Flagged by Analyzer 0.2 % (0-5); Platelet Count 292 K/mm3 (150-450); RBC Distribution Width CV 16.9 % (11.6-14.6); RBC Distribution Width SD 48.5 fl (35.1-43.9); Red Blood Count 5.14 M/mm3 (4.2-5.4); White Blood Count 11.2 K/mm3 (4.4-11.0)
[2025-07-03] MEDS: 0.9% Normal Saline (1000mL) 1,000 ML 999 ML IV (22:25)
[2025-07-03 22:39] LABS: Mucous, Urine 0 SEEN /hpf (<or=2+)
--- OUTSIDE RECORDS SUMMARY | 2025-07-03 22:39 | XMS RPT_ITS | CCD ---
Author Organization [facility] Inform ion Partnership [facility] Care Team Providers Care Typists Supervisor Name Role Phone Activity Type Activity Date Activity User E-sign Co-sign Detail Recorded Client Recorded Date Recorded By Document 02/14/25 16:02 KW [id number] 02/14/25 16:03 KW Document 02/17/25 10:22 RB [id number] 02/17/25 10:24 RB Document 02/21/25 12:25 KW [id number] 02/21/25 12:26 KW Document 02/24/25 13:24 DS [id number] 02/24/25 13:25 DS Document 02/28/25 14:24 BMF [id number] 02/28/25 14:24 BMF 02/14/25 02/17/25 02/21/25 16:02 10:22 12:25 Wound Care Center Nurse 3 1-right de souza -Ulcer Cleansing Wound Cleanser -Foul Odor after Cleansing -Primary Dressing Applied -Hydrogel -Silicone Border Foam 4x4 BLE -Tubular Bandage -Size of Tubigrip Used -Size E ($) RLE -Multi-Layered Wrap Application Unna Boot - Unna Boot - Unna Boot - Right Right Right -Unna- Right (Qty applied) 1 1 1 Treatment Response Procedure Tolerated Well Pain Scale: 0-10 Numeric Is Patient Pain Free? Yes Yes Yes WC - Visit Discharge Discharge Condition Stable Stable Stable Ambulatory Status Ambulatory Ambulatory Ambulatory Transportation Private Auto Private Auto Private Auto Accompanied by Medication Reconcilliation completed & No No No provided to patient/care provider Clinical Summary of Care Provided Yes Yes Yes 02/24/25 02/28/25 13:24 14:24 Wound Care Center Nurse 3 1-right de souza -Ulcer Cleansing Soap and Water Rinsed/ Irrigated with Saline -Foul Odor after Cleansing No -Primary Dressing Applied C Hydrogel, Silicone Border Foam 4x4 -Hydrogel 1 -Silicone Border Foam 4x4 1 BLE -Tubular Bandage Double Layer -Size of Tubigrip Used Size E -Size E ($) 2 RLE -Multi-Layered Wrap Application Unna Boot - Right -Unna- Right (Qty applied) 1 Treatment Response Pain Scale: 0-10 Numeric Is Patient Pain Free? Yes Yes WC - Visit Discharge Discharge Condition Stable Stable Ambulatory Status Ambulatory Ambulatory Transportation Private Auto Private Auto Accompanied by SIGNIFICANT OTHER Medication Reconcilliation completed & provided to patient/care provider Clinical Summary of Care Provided Charges/Coding Visit Charges Office Visits / Consults: 55541 OV L3 Est 20min Assessment/Plan Assessment/Plan (1) Non-pressure ulcer of right lower extremity with fat layer exposed: CODE(S): L97.912 - Non-pressure chronic ulcer of unspecified part of rightlower leg with fat layer exposed (2) Wound of right lower extremity: CODE(S): S81.801A - Unspecified open wound, right lower leg, initial encounter (3) Dependent edema: CODE(S): R60.9 - Edema, unspecified (4) Asthma: CODE(S): J45.909 - Unspecified asthma, uncomplicated (5) COPD (chronic obstructive pulmonary disease): CODE(S): J44.9 - Chronic obstructive pulmonary disease, unspecified (6) Tobacco abuse: CODE(S): Z72.0 - Tobacco use (7) Tobacco abuse counseling: CODE(S): Z71.6 - Tobacco abuse counseling (8) Morbid obesity with BMI of 60.0-69.9, adult: CODE(S): E66.01 - Morbid (severe) obesity due to excess calories; Z68.44 -Body mass index [BMI] 60.0-69.9, adult (9) Hx of cholecystectomy: CODE(S): Z90.49 - Acquired absence of other specified parts of digestive tract (10) Hx of appendectomy: CODE(S): Z90.49 - Acquired absence of other specified parts of digestive tract (11) GERD (gastroesophageal reflux disease): CODE(S): K21.9 - Gastro-esophageal reflux disease without esophagitis (12) Hyperlipidemia: CODE(S): E78.5 - Hyperlipidemia, unspecified (13) ADHD: CODE(S): F90.9 - Attention-deficit hyperactivity disorder, unspecified type (14) Schizophrenia: CODE(S): F20.9 - Schizophrenia, unspecified (15) Asthma: CODE(S): J45.909 - Unspecified asthma, uncomplicated (16) Obstructive sleep apnea on CPAP: CODE(S): G47.33 - Obstructive sleep apnea (adult) (pediatric) PLAN: Plan This is a morbidly obese diabetic female with multiple pre-existing medical problems. The patient initially presented with a traumatic wound on the right pretibial surface, the origin of which was due to trauma in November 2024. According to the patient, a prior culture was positive for Staph aureus, and the patient has completed a course of Bactrim and Levaquin orally. The patient has been counseled to discontinue her smoking habit. Optimizing her nutritional intake and glycemic control has also been encouraged. A dietary consultation has been arranged, and was undertaken recently. The appropriate conservative measures relative to the management of chronic swelling and edema in the lower extremities have been discussed with the patient in detail. The patient has been encouraged to elevate her lower extremities as much as possible. Elevation is to be during both daytime and nighttime hours. Elevation is to be to heart level, or higher. Prolonged idle sitting has been discouraged. Activity has been encouraged. The patient has now obtained graduated compression stockings of 20 to 30 mmHg compression, which are to be donned on a daily basis. The patient's wound appears to be essentially healed, largely epithelialized. Therefore, collagen hydrogel is to be applied topically on a daily basis, and the patient is to follow-up in 2 weeks for reassessment to ensure that her wound remains healed. The patient has lost 14 pounds in recent weeks as result of dietary modification. Total time: 22 minutes 03/02/251718 <Electronically signed by Russ Mancuso MD> Cosigner Signature (if applicable): CC: ~ Signed [facility] Work Phone: [phone]) 457-489808-21-2025 History and physical note [facility] [address] [place] [address] H&P Exam - Wound Care 03/02/25 1713 MR#: [id number] Acct: [id number] Name: CLAUDIA HEBERT Aubrie Rep #:[id number] : 1980 44 From: Russ Ramirez PCP: Akilah Wiggins [employer]ILY AND [employer] LEGAL ASSISTANT-C Status:REG RCR Location: History of Present Illness Date of Service: 02/28/25 Chief Complaint: Traumatic wound of the right lower extremity History of Wound: This is a morbidly obese 44-year-old diabetic female who presented with a wound on her right pretibial surface. According to patient, the wound began in November 2024 as result of traumawhen she fell down a flight of stairs. Since the time of her initial injury, the patient has been evaluated and treated in various medical facilities, including the [facility] Emergency Department and the Emergency Department at the [facility]. She was seen at the [facility] ER on January 02, 2025, at which time she was treated with a prescription for [id number] mg p.o. every 6 hours for 10 days. More recently, the patient was evaluated in the Emergency Department at the [facility] on February 07, at which time she was briefly admitted and subsequentlydischarged with prescriptions for oral Bactrim and Levaquin. According to the patient, a prior wound culture was positive for Staph aureus. She also indicates that her hemoglobin A1c was obtained on January 24, 2025, which was 5.9. She denies that she is diabetic. She also denies a history of myocardia l infarction, congestive heart failure, cerebrovascular accident, renal disease, thyroid disease, and hypertension. She is known to be a smoker, and suffers from COPD and asthma. She also has obstructive sleep apnea, for which she uses CPAP. She is morbidly obese, with a BMI of 62.5. Thepatient admits to sleeping in a recliner. She is not active, and sits in idle fashion throughout most of each day. She denies a history of lower extremity thrombophlebitis. [facility] Medical History Dependent edema Obstructive sleep apnea on CPAP Morbid obesity with BMI of 60.0-69.9, adult Non-pressure ulcer of right lower extremity with fat layer exposed Wound of right lower extremity Asthma Tobacco abuse counseling Tobacco abuse Schizophrenia ADHD Hyperlipidemia GERD (gastroesophageal reflux disease) Toxoplasmosis chorioretinitis COPD (chronic obstructive pulmonary disease) Asthma Home Medications ?Medication ?Instructions ?Recorded ?Last Taken ?Type albuterol sulfate 90 mcg/actuation 2 puff inhalation Q 4H PRN PRN 07/11/24 Unknown Rx aerosol inhaler (Ventolin HFA) Wheezing ##1 celecoxib 100 mg capsule 100 mg PO DAILY 01/02/25 Unk nown History cetirizine 10 mg tablet 10 mg PO DAILY 01/02/25 Unkn own History pantoprazole 40 mg tablet,delayed 40 mg PO DAILY 01/02 Unknown History release risperidone 0.5 mg tablet 0.5 mg PO QHS 01/02/25 Unkno wn History trazodone 50 mg tablet 100 mg PO QHS 01/02/25 Unkno wn History atorvastatin 10 mg tablet (Lipitor) 10 mg PO DAILY 12/04 Unknown History bupropion HCl 150 mg 24 hr tablet, 150 mg PO DAILY 12/04 Unknown History extended release (Wellbutrin XL) fluconazole 150 mg tablet 150 mg PO QWEEK 02/14/25 Unk nown History fluticasone 250 mcg-salmeterol 50 1 inh inhalation BID 02/14/25 Unknown History mcg/dose blistr powdr for inhalation (Advair Diskus) ipratropium 0.5 mg-albuterol 3 mg ml 02/14/25 Unknown History (2.5 mg base)/3 mL nebulization soln lumateperone 21 mg capsule 21 mg PO DAILY 02/14/25 Unk nown History (Caplyta) omega-3 acid ethyl esters 1 gram cap PO 02/14/25 Unkno wn History capsule propranolol 20 mg tablet 20 mg PO BID 02/14/25 Unknow n History doxycycline monohydrate 100 mg 100 mg PO BID 02/21/25 Unknown History capsule doxycycline monohydrate 100 mg 100 mg PO BID 02/21/25 Unknown History capsule Allergy/AdvReac Type Severity Reaction Status Date / Time nystatin Allergy Intermediate Rash Verified 02/14/25 14:21 Surgical History Hx of cholecystectomy Hx of appendectomy Social History household members: friend(s) Smoking Status: Current every day smoker tobacco type: cigarettes Vital Signs Vital Signs Vital Signs: Weight Weight: 320 lb Body Mass Index (BMI) 62.4 Physical Exam Const alert, oriented x3, no apparent distress, no limitations and well nourished Constitutional Narrative: The patient is morbidly obese. Her BMI is 62.5. General Appearance: cooperative, comfortable, well developed and disheveled Orientation / Consciousness: awake, oriented to person, oriented to place and oriented to time Exam Limitations: no limitations Nutritional Appearance: overweight HEENT normocephalic and head/scalp atraumatic Head and Scalp: normal to inspection, normocephalic and atraumatic Face and Sinus: normal facial exam Nose: external nose normal External Ear: external ears normal Eyes EOMs intact bilaterally General Eye: normal appearance of both eyes Neck full ROM Resp normal respiratory effort, normal air movement, no retractions and no use of accessory muscles Effort and Inspection: able to speak in complete sentences Extremity no calf tenderness General Extremity: Negative for clubbing or cyanosis Skin Wound Narrative: A wound is noted on the right pretibial surface. It now appears to be essentially healed. There is some sloughing epidermis at the site of the wound,though the wound is largely epithelialized. Dimensions are documented elsewhere. The swelling of the patient's right lower extremity is minimal, muchimproved from the patient's prior visits. There is no sign of infection or cellulitis. Neuro oriented x3, CN's II-XII intact bilaterally, moves all extremities, no focal motor deficits and no sensory deficits noted Sensorium / Orientation: awake, alert, oriented to person, oriented to place andoriented to time Speech: speech normal Psych Appearance: grossly normal and appropriate Attitude: calm Activity / Motor Behavior: appropriate eye contact Speech: normal speech Mood & Affect: euthymic mood Thought Process: normal thought process Thought Content: normal thought content Attention / Concentration: attention grossly intact Debridement Note Debridement Note No debridement was completed: No debridement was completed today Post-Debridement Measurements and Additional Note: Post-Debridement Measurements/Treatment YAZAN - Nurse 1 - General Ulcer Assessment Start: 02/14/25 14:00 Freq: Status: Active Protocol: PAOLO Activity Type Activity Date Activity User E-sign Co-sign Detail Recorded Client Recorded Date Recorded By Document 02/14/25 14:00 JF [id number] 02/14/25 14:17 JF Document 02/17/25 10:22 RB [id number] 02/17/25 10:24 RB Document 02/21/25 11:38 BMF [id number] 02/21/25 11:44 BMF Document 02/24/25 13:24 DS [id number] 02/24/25 13:25 DS Document 02/28/25 13:55 KW [id number] 02/28/25 13:57 KW 02/14/25 02/17/25 02/21/25 14:00 10:22 11:38 WC - Today's Visit Information Type of service Initial Visit Nurse-only Follow-up Visit Visit (Physician/FIRE INVESTIGATION MANAGER ) Arrival Mode Ambulatory Ambulatory Ambulatory Transfer Assistance None None Accompanied by friend JOURNEYMAN [employer]NER Patient Identification Verified (Name & Yes Yes Yes ) Patient Requires Transmission-Based No No No Precautions Safety Precautions Height and Weight Height 5 ft Weight 320 lb Weight in Pounds 320.0 lbs Weight Measurement Method Estimated by Patient Body Mass Index (BMI) 62.4 62.4 62.4 BMI Classification Obese Obese Obese Vital Signs Temperature (97.8 F-99.1 F) 97.6 F L 97.6 F L 97.6 F L Temperature Source Temporal Temporal Temporal Pulse Rate (60-100) 86 80 87 Pulse Location Monitor Monitor Monitor Respiratory Rate (12-18) 18 18 20 H Respiratory rate source Observation Observation Observation Oxygen Delivery Method Room Air Blood Pressure (90/60-120/80) 187/61 H 147/80 H 128/67 H Blood Pressure Mean 103 102 87 Source Monitor Monitor Monitor Position Semi-Fowlers Semi-Fowlers Sitting Blood Pressure Location Right Arm Left Arm Left Forearm History Since Last Visit- (Skip if this is Patient's initial visit) Have you changed medications since your No Yes last visit? Any new allergies or adverse reactions No No Had a fall/change in ADL's that may No No increase risk of falls Signs or symptoms of abuse and/or No No neglect since last visit Have you been in the hospital since your No No last visit? Has dressing in place as prescribed Yes No Has compression in place as prescribed Yes No Has offloadiing in place as prescribed N/A N/A Experienced any changes in pain level or No No management Left Footwear Regular Shoe Regular Shoe Regular Shoe Right Footwear Regular Shoe Regular Shoe Regular Shoe Other Footwear REMOVED WRAP TO SHOWER 1 HR PRIOR TO APPT Pain Scale: 0-10 Numeric Is Patient Pain Free? Yes Yes Yes Lower Extremity Assessment/ Foot Assessment/ Toe Nail Assessment Right -Posterior Tibial Palpable Yes -Dorsalis Pedis Palpable Yes -Extremity Color Hyperpigmented -Hair Growth on Legs Yes -Hair Growth on Toes Yes -Temperature of Extremity Warm -Capillary Refill Less than 3 Seconds -Prior Foot Ulcer No -Thick Yes -Discolored Yes -Deformed No -Improper Length & Hygeine No Communication Assessment Preferred language Angolan Able to Read Yes Able to Write Yes Communication Tools None Right Hearing Abillity Normal Left Hearing Abillity Normal Visual Assistive Devices Glasses Teaching Assessment Preferences Verbal,Written, Audio/Visual, Demonstration Barriers to Learning None Readiness To Learn Good Willingness to Engage in Self Management Med Activies Readiness to Engage in Self Management Med Activities Anxiety Level Anxious Cooperation Cooperative Perception Coherent Interest in Health Problem Asks Questions Education Importance Acknowledges Need Does Patient Smoke tobacco or other Yes substances Smoking Status Current every day smoker Is Patient Diabetic No Functional Assessment Recent Decline in Ability to Perform Denies Any Declines Culture/Temple/Doll Surgeon Cultural/Temple Needs that may affect No Treatment Plan Would you allow our hospital laborer golf course to No meet you for the purpose of spiritual/ emotional support? Doll Surgeon to contact [facility] No Teaching: Wound Center [facility] Orientation/ Contacting Physician -Person Taught Patient,Family -Teaching Method Discussion, Demonstration -Response to teaching Return Demonstration, Verbalize Understanding 02/24/25 02/28/25 13:24 13:55 - Today's Visit Information Type of service Nurse-only Follow-up Visit Visit (Physician/FIRE INVESTIGATION MANAGER ) Arrival Mode Ambulatory Ambulatory Transfer Assistance Accompanied by Patient Identification Verified (Name & Yes Yes ) Patient Requires Transmission-Based No Precautions Safety Precautions Fall Prevention Height and Weight Height Weight Weight in Pounds Weight Measurement Method Body Mass Index (BMI) 62.4 62.4 BMI Classification Obese Obese Vital Signs Temperature (97.8 F-99.1 F) 98.0 F Temperature Source Temporal Pulse Rate (60-100) 74 Pulse Location Monitor Respiratory Rate (12-18) 18 Respiratory rate source Observation Oxygen Delivery Method Room Air Blood Pressure (90/60-120/80) 147/78 H Blood Pressure Mean 101 Source Monitor Position Semi-Fowlers Blood Pressure Location Left Arm History Since Last Visit- (Skip if this is Patient's initial visit) Have you changed medications since your No last visit? Any new allergies or adverse reactions No Had a fall/change in ADL's that may No increase risk of falls Signs or symptoms of abuse and/or No neglect since last visit Have you been in the hospital since your No last visit? Has dressing in place as prescribed Yes Has compression in place as prescribed Yes Has offloadiing in place as prescribed N/A Experienced any changes in pain level or No management Left Footwear Regular Shoe Right Footwear Regular Shoe Other Footwear Pain Scale: 0-10 Numeric Is Patient Pain Free? Yes Yes Lower Extremity Assessment/ Foot Assessment/ Toe Nail Assessment Right -Posterior Tibial Palpable -Dorsalis Pedis Palpable -Extremity Color -Hair Growth on Legs -Hair Growth on Toes -Temperature of Extremity -Capillary Refill -Prior Foot Ulcer -Thick -Discolored -Deformed -Improper Length & Hygeine Communication Assessment Preferred language Able to Read Able to Write Communication Tools Right Hearing Abillity Left Hearing Abillity Visual Assistive Devices Teaching Assessment Preferences Barriers to Learning Readiness To Learn Willingness to Engage in Self Management Activies Readiness to Engage in Self Management Activities Anxiety Level Cooperation Perception Interest in Health Problem Education Importance Does Patient Smoke tobacco or other substances Smoking Status Is Patient Diabetic Functional Assessment Recent Decline in Ability to Perform Culture/Temple/Doll Surgeon Cultural/Temple Needs that may affect Treatment Plan Would you allow our hospital laborer golf course to meet you for the purpose of spiritual/ emotional support? Doll Surgeon to contact [facility] Teaching: Wound Center [facility] Orientation/ Contacting Physician -Person Taught -Teaching Method -Response to teaching [facility] Nurse 1 - General Ulcer Measurement Start: 02/14/25 14:00 Freq: Status: Active Protocol: Activity Type Activity Date Activity User E-sign Co-sign Detail Recorded Client Recorded Date Recorded By Document 02/14/25 14:00 JF [id number] 02/14/25 14:17 JF Document 02/17/25 10:22 RB [id number] 02/17/25 10:24 RB Document 02/21/25 11:38 BM [id number] 02/21/25 11:44 BMF Document 02/28/25 13:55 KW [id number] 02/28/25 13:57 KW 02/14/25 02/17/25 02/21/25 14:00 10:22 11:38 Wound Center Nurse 1 1-right de souza -Combined with other wound No No -Current Size (cm) - Length 5 0.8 -Current Size (cm) - Width 2.6 0.6 -Current Size (cm) - Depth 0.1 0.1 -Total Square Cm 13.0 0.48 -Date of Last Picture (Recall this 02/21/25 field) -Photo Taken Yes Yes -Epithelialization Small 1-33% Medium 34-66% -Tunneling No No -Undermining/Tunneling No No -Circular Undermining No No -Exudate Amt Small Large Small -Exudate Type Serosanguineous Serosanguineous Serous -Wound Margin Flat & Intact Distinct, Flat & Intact Outline Attached -Granulation Amt Medium (34-66%) Large (67-100%) Small (1-33%) -Granulation Quality Pale [place] Red -Slough/Fibrin Yes Yes Yes -Necrosis Amt Large (67-100%) Small (1-33%) Large (67-100%) -Necrotic Tissue Type Adherent Slough Adherent Slough Adherent Slough -Structure Exposed N/A N/A -Texture (Brandy-wound Skin Appearance) Assessed, Assessed, Localized Edema Scarring -Moisture (Brandy-wound Skin Appearance) No Abnormality, Assessed,Dry/ Dry/Scaly Scaly -Color (Brandy-wound Skin Appearance) Assessed Assessed -Temperature (Brandy-wound Skin No Abnormality No Abnormality Appearance) (Pt Warm) (Pt Warm) -Tenderness on Palpation (Brandy-wound No No Skin Appearance) -Ulcer Cleansing Soap and Water Soap and Water -Foul Odor after Cleansing No No -Anesthetic Used 5% Lidocaine 5% Lidocaine Gel Gel Lower Limb Edema Present Yes Yes Right Calf (cm) 44 41.4 Right Ankle (cm) 20.8 20.8 02/28/25 13:55 Wound Center Nurse 1 1-right de souza -Combined with other wound -Current Size (cm) - Length 0.1 -Current Size (cm) - Width 0.1 -Current Size (cm) - Depth 0.1 -Total Square Cm 0.01 -Date of Last Picture (Recall this 02/28/25 field) -Photo Taken -Epithelialization -Tunneling -Undermining/Tunneling -Circular Undermining -Exudate Amt None Present -Exudate Type -Wound Margin -Granulation Amt -Granulation Quality -Slough/Fibrin -Necrosis Amt -Necrotic Tissue Type -Structure Exposed -Texture (Brandy-wound Skin Appearance) Assessed -Moisture (Brandy-wound Skin Appearance) Assessed,Dry/ Scaly -Color (Brandy-wound Skin Appearance) Assessed, Erythema -Temperature (Brandy-wound Skin No Abnormality Appearance) (Pt Warm) -Tenderness on Palpation (Brandy-wound No Skin Appearance) -Ulcer Cleansing Soap and Water -Foul Odor after Cleansing No -Anesthetic Used 5% Lidocaine Gel Lower Limb Edema Present Right Calf (cm) 40.2 Right Ankle (cm) 20.5 WC - Nurse 2 - General Ulcer CM Notes Start: 02/14/25 14:00 Freq: Status: Active Protocol: Activity Type Activity Date Activity User E-sign Co-sign Detail Recorded Client Recorded Date Recorded By Document 02/14/25 14:45 DS [id number] 02/14/25 14:48 DS Document 02/21/25 12:11 JF [id number] 02/21/25 12:15 JF Document 02/28/25 14:04 [facility] [id number] 02/28/25 14:15 BMF 02/14/25 02/21/25 02/28/25 14:45 12:11 14:04 Wound Center Nurse 2 1-right de souza -Time 14:45 12:11 14:05 -Correct Patient Yes Yes -Correct Side, Site, Position Yes No -Correct Procedure Yes No -Procedure Performed Yes No No -Type of Procedure Debridement -Clinical Debridement Subcutaneous -Tissue Removed Subcutaneous -Post Debridement (cm) - Length 3.8 3.2 0.1 -Post Debridement (cm) - Width 3.0 1 0.2 -Post Debridement (cm) - Depth 0.1 0.1 0.1 -Total Square (Post) (cm) 11.40 3.2 0.02 -Area of Debridement (cm) - Length 3.8 3.2 0.1 -Area of Debridement (cm) - Width 3.0 1.0 0.2 -Total Square (Area) (cm) 11.40 3.20 0.02 -Tunneling No No No -Undermining/Tunneling No No No -Circular Undermining No No No -Wound/Ulcer Outcome Not Healed Not Healed Not Healed -Ulcer Cleansing Rinsed/ Irrigated with Saline -Foul Odor after Cleansing No No -Bioengineered Tissue No No -Bleeding Controlled with Pressure Pressure NA -Treatment Response Procedure Procedure Tolerated Well Tolerated Well -Offloading No -Debridement - Subq, 1st 20sq cm Yes No Pain Scale: 0-10 Numeric Is Patient Pain Free? Yes Yes Yes - Nurse 3 - General Ulcer D/C NN Start: 02/14/25 14:00 Freq: Status: Active Protocol: Activity Type Activity Date Activity User E-sign Co-sign Detail Recorded Client Recorded Date Recorded By Document 02/14/25 16:02 KW [id number] 02/14/25 16:03 KW Document 02/17/25 10:22 RB [id number] 02/17/25 10:24 RB Document 02/21/25 12:25 KW [id number] 02/21/25 12:26 KW Document 02/24/25 13:24 DS [id number] 02/24/25 13:25 DS Document 02/28/25 14:24 BMF [id number] 02/28/25 14:24 BMF 02/14/25 02/17/25 02/21/25 16:02 10:22 12:25 Wound Care Center Nurse 3 1-right de souza -Ulcer Cleansing Wound Cleanser -Foul Odor after Cleansing -Primary Dressing Applied -Hydrogel -Silicone Border Foam 4x4 BLE -Tubular Bandage -Size of Tubigrip Used -Size E ($) RLE -Multi-Layered Wrap Application Unna Boot - Unna Boot - Unna Boot - Right Right Right -Unna- Right (Qty applied) 1 1 1 Treatment Response Procedure Tolerated Well Pain Scale: 0-10 Numeric Is Patient Pain Free? Yes Yes Yes WC - Visit Discharge Discharge Condition Stable Stable Stable Ambulatory Status Ambulatory Ambulatory Ambulatory Transportation Private Auto Private Auto Private Auto Accompanied by Medication Reconcilliation completed & No No No provided to patient/care provider Clinical Summary of Care Provided Yes Yes Yes 02/24/25 02/28/25 13:24 14:24 Wound Care Center Nurse 3 1-right de souza -Ulcer Cleansing Soap and Water Rinsed/ Irrigated with Saline -Foul Odor after Cleansing No -Primary Dressing Applied C Hydrogel, Silicone Border Foam 4x4 -Hydrogel 1 -Silicone Border Foam 4x4 1 BLE -Tubular Bandage Double Layer -Size of Tubigrip Used Size E -Size E ($) 2 RLE -Multi-Layered Wrap Application Unna Boot - Right -Unna- Right (Qty applied) 1 Treatment Response Pain Scale: 0-10 Numeric Is Patient Pain Free? Yes Yes WC - Visit Discharge Discharge Condition Stable Stable Ambulatory Status Ambulatory Ambulatory Transportation Private Auto Private Auto Accompanied by SIGNIFICANT OTHER Medication Reconcilliation completed & provided to patient/care provider Clinical Summary of Care Provided Charges/Coding Visit Charges Office Visits / Consults: [id number] OV L3 Est 20min Assessment/Plan Assessment/Plan (1) Non-pressure ulcer of right lower extremity with fat layer exposed: CODE(S): L97.912 - Non-pressure chronic ulcer of unspecified part of rightlower leg with fat layer exposed (2) Wound of right lower extremity: CODE(S): S81.801A - Unspecified open wound, right lower leg, initial encounter (3) Dependent edema: CODE(S): R60.9 - Edema, unspecified (4) Asthma: CODE(S): J45.909 - Unspecified asthma, uncomplicated (5) COPD (chronic obstructive pulmonary disease): CODE(S): J44.9 - Chronic obstructive pulmonary disease, unspecified (6) Tobacco abuse: CODE(S): Z72.0 - Tobacco use (7) Tobacco abuse counseling: CODE(S): Z71.6 - Tobacco abuse counseling (8) Morbid obesity with BMI of 60.0-69.9, adult: CODE(S): E66.01 - Morbid (severe) obesity due to excess calories; Z68.44 -Body mass index [BMI] 60.0-69.9, adult (9) Hx of cholecystectomy: CODE(S): Z90.49 - Acquired absence of other specified parts of digestive tract (10) Hx of appendectomy: CODE(S): Z90.49 - Acquired absence of other specified parts of digestive tract (11) GERD (gastroesophageal reflux disease): CODE(S): K21.9 - Gastro-esophageal reflux disease without esophagitis (12) Hyperlipidemia: CODE(S): E78.5 - Hyperlipidemia, unspecified (13) ADHD: CODE(S): F90.9 - Attention-deficit hyperactivity disorder, unspecified type (14) Schizophrenia: CODE(S): F20.9 - Schizophrenia, unspecified (15) Asthma: CODE(S): J45.909 - Unspecified asthma, uncomplicated (16) Obstructive sleep apnea on CPAP: CODE(S): G47.33 - Obstructive sleep apnea (adult) (pediatric) PLAN: Plan This is a morbidly obese diabetic female with multiple pre-existing medical problems. The patient initially presented with a traumatic wound on the right pretibial surface, the origin of which was due to trauma in November 2024. According to the patient, a prior culture was positive for Staph aureus, and the patient has completed a course of Bactrim and Levaquin orally. The patient has been counseled to discontinue her smoking habit. Optimizing her nutritional intake and glycemic control has also been encouraged. A dietary consultation has been arranged, and was undertaken recently. The appropriate conservative measures relative to the management of chronic swelling and edema in the lower extremi ties have been discussed with the patient in detail. The patient has been encouraged to elevate herlower extremities as much as possible. Elevation is to be during both daytime and nighttime hours. Elevation is to be to heart level, or higher. Prolonged idle sitting has been discouraged. Activity has been encouraged. The patient has now obtained graduated compression stockings of 20 to 30 mmHg compression, which are to be donned on a daily basis. The patient's wound appears to be essentially healed, largely epithelialized. Therefore, collagen hydrogel is to be applied topically on a daily basis, and the patient is to follow-up in 2 weeks for reassessment to ensure that her wound remains hea led. The patient has lost 14 pounds in recent weeks as result of dietary modification. Total time: 22 minutes 03/02/25 [id number] Cosigner Signature (if applicable): CC: ~ Signed [facility]08-19-2025 Evaluation note* Diagnosis Onset Date Resolution Status Admit Date ADHD acute February 28 025 1:45pm Asthma deleted February 28 1:45pm Dependent edema acute February 282024 1:45pm GERD (gastroesophageal reflu x disease) acute February 28 1:45pm Hyperlipidemia acute February 1:45pm Morbid obesity with BMI of 60.0-69.9, adult acute February 28 1:45pm Non-pressure ulcer of right lower extremity with fat layer exposed acute February 28 1:45pm Obstructive sleep apnea on CPAP acut e February 28, 2025 1:45pm Schizophrenia acute February 1:45pm Tobacco abuse acute February 1:45pm Tobacco abuse counseling acute February 28, 2025 1:45pm Wound of right lower extremity acute February 28, 2025 1:45pm COPD (chronic obstructive pulmonary disease) chronic February 28, 2025 1:45pm Hx of appendectomy inactive February 28, 2025 1:45pm Hx of cholecystectomy inactive Feb 1:45pm [facility] Work Phone: 1(580) 360-364508-19-2025 Evaluation note* Diagnosis Onset Date Resolution Status Admit Date ADHD acute February 28 1:45pm Asthma deleted February 28 1:45pm Dependent edema acute February 282024 1:45pm GERD (gastroesophageal reflu x disease) acute February 28 1:45pm Hyperlipidemia acute February 1:45pm Morbid obesity with BMI of 60.0-69.9, adult acute February 28 1:45pm Non-pressure ulcer of right lower extremity with fat layer exposed acute February 28 1:45pm Obstructive sleep apnea on CPAP acute February 28 1:45pm Schizophrenia acute February 1:45pm Tobacco abuse acute February 1:45pm Tobacco abuse counseling acute February 28, 2025 1:45pm Wound of right lower extremity acute February 28, 2025 1:45pm COPD (chronic obstructive pulmonary disease) chronic February 28, 2025 1:45pm Hx of appendectomy inactive February 28, 2025 1:45pm Hx of cholecystectomy inactive Feb 1:45pm ADHD acute March 14, 2025 11:22am Asthma deleted March 14, 2025 11:22am Dependent edema acute March 14, 2025 11:22am GERD (gastroesophageal reflu x disease) acute March 14 11:22am Hyperlipidemia acute March 14, 2025 11:22am Morbid obesity with BMI of 60.0-69.9, adult acute March 14, 2025 11:22am Non-pressure ulcer of right lower extremity with fat layer exposed acute March 14 11:22am Obstructive sleep apnea on CPAP acute March 14 11:22am Schizophrenia acute March 142024 11:22am Tobacco abuse acute March 142024 11:22am Tobacco abuse counseling acute March 14, 2025 11:22am Wound of right lower extremity acute March 14, 2025 11:22am COPD (chronic obstructive pulmonary disease) chronic March 11:22am Hx of appendectomy inactive 2024 11:22am Hx of cholecystectomy inactive Mar 11:22am [facility] Work Phone: 1(466) 538-313808-19-2025 Evaluation note* Diagnosis Onset Date Resolution Status Admit Date ADHD acute February 28 1:45pm Asthma deleted February 28 1:45pm Dependent edema acute February 282024 1:45pm GERD (gastroesophageal reflu x disease) acute February 28 1:45pm Hyperlipidemia acute February 1:45pm Morbid obesity with BMI of 60.0-69.9, adult acute February 28 1:45pm Non-pressure ulcer of right lower extremity with fat layer exposed acute February 28 1:45pm Obstructive sleep apnea on CPAP acute February 28 1:45pm Schizophrenia acute February 1:45pm Tobacco abuse acute February 1:45pm Tobacco abuse counseling acute February 28, 2025 1:45pm Wound of right lower extremity acute February 28, 2025 1:45pm COPD (chronic obstructive pulmonary disease) chronic February 28, 2025 1:45pm Hx of appendectomy inactive February 28, 2025 1:45pm Hx of cholecystectomy inactive Feb 1:45pm ADHD acute March 14, 2025 11:22am Asthma deleted March 14, 2025 11:22am Dependent edema acute March 14, 2025 11:22am GERD (gastroesophageal reflu x disease) acute March 14 11:22am Hyperlipidemia acute March 14, 2025 11:22am Morbid obesity with BMI of 60.0-69.9, adult acute March 14, 2025 11:22am Non-pressure ulcer of right lower extremity with fat layer exposed acute March 14 11:22am Obstructive sleep apnea on CPAP acute March 14 11:22am Schizophrenia acute March 142024 11:22am Tobacco abuse acute March 142024 11:22am Tobacco abuse counseling acute March 14, 2025 11:22am Wound of right lower extremity acute March 14, 2025 11:22am COPD (chronic obstructive pulmonary disease) chronic March 11:22am Hx of appendectomy inactive Septem william 2024 11:22am Hx of cholecystectomy inactive Sep tember 2024 11:22am Right ventricular diastolic dysfunction acute March 29, 2025 2:06pm [facility] Work Phone: 1(710) 528-414308-18-2025 Telephone encounter Note* Telephone Encounter - Ne Barrera MA - 02/27/2025 4:09 PM EDT [employer] message with results below viewed by pt 02/27/25 at 3:46 pm. Ne Barrera MA [facility]08-18-2025 Miscellaneous Notes* Telephone Encounter - Ne Barrera MA - 02/27/2025 4:09 PM EDT [employer] message with results below viewed by pt 02/27/25 at 3:46 pm. Ne Barrera MA * Telephone Encounter - Rima Mcrae MA - 02/27/2025 3:20 PM EDT Pt active on [employer]- message sent. Will leave encounter open until pt views Rima Mcrae MA * Telephone Encounter - Akilah Wiggins APRN.CNP - 02/27/2025 8:07 AM EDT Please let patient know her mammogram is negative. Patient should continue with annual screenings. * Result Encounter Note - GIULIA STANFORD - 02/17/2025 9:00 AM EDT Message notifying patient via [employer]. Provided number for her to schedule with Pulmonology. Giulia Stanford LPN * Telephone Encounter - Akilah Wiggins APRN.ADONIS - 02/16/2025 3:32 PM EDT Please let patient know her lung tests show restrictive airway disease. Recommend follow up with pulmonology. [facility] Telephone encounter Note * Telephone Encounter - Rima Mcrae MA - 02/27/2025 3:20 PM EDT Pt active on [employer]- message sent. Will leave encounter open until pt views Rima Mcrae MA [facility]08-18-2025 Telephone encounter Note* Telephone Encounter - Any Kovacs RN - 02/27/2025 9:31 AM EDT Karla from [facility] calls and is requesting referral, office visit notes, face sheet, and results to be faxed to [phone]. Faxed as requesting. Any Kovacs RN [facility]08-18-2025 Miscellaneous Notes* Telephone Encounter - Any Kovacs RN - 02/27/2025 9:31 AM EDT Karla from [facility] calls and is requesting referral, office visit notes, face sheet, and results to be faxed to [phone]. Faxed as requesting. Any Kovacs RN documented [facility] Telephone encounter Note * Telephone Encounter - Akilah Wiggins APRN.ADONIS - 02/27/2025 8:07 AM EDT Please let patient know her mammogram is negative. Patient should continue with annual screenings. [facility]08-15-2025 History of Present illness Narrative* Shawna Jaquez Mammo Tech - 02/24/2025 9:10 AM EDT Radiology Service Progress Note PATIENT NAME: Claudia Hebert DATE OF SERVICE: February 24, 2025 TIME: 9:59 AM PATIENT IDENTITY VERIFICATION COMPLETED USING TWO (2) IDENTIFIERS: Name and Date of confirmedby patient verbally. FALL SCREENING: Has the patient had 2 falls in the last year or 1 fall with injury or currently using an Ambulatory Assistive Device (Walker, Cane, Wheelchair, Crutches, etc.)? Yes, Patient High Riskfor Falls What interventions were put in place to prevent falls during this visit? Increased Observations by Caregivers PATIENT GENDER DATA: Assigned female at . status: : No status:NO. PATIENT RELEVANT IMPLANT DATA REVIEWED: Not Applicable PATIENT PRESENTS WITH AN IMPLANTABLE OR ATTACHED COMBAT SYSTEMS OPERATOR: No RADIOLOGY DEPARTMENT: Mammography PERIPHERAL IV DATA: Not applicable SIGNED BY: Ilir Ramirez February 24, 2025 9:59 AM documented in this encounterPrem[facility]25 NoteHNO ID: [id number] Author: SHAWNA JAQUEZ Mammo Tech Service: ? Author Type: Chemical Engineering Technologist Type: Progress Notes Filed: 02/24/2025 10:00 Note Text: Radiology Service Progress Note PATIENT NAME: Claudia Hebert DATE OF SERVICE: February 24, 2025 TIME: 9:59 AM PATIENT IDENTITY VERIFICATION COMPLETED USING TWO (2) IDENTIFIERS: Name and Date of confirmed by patient verbally. FALL SCREENING: Has the patient had 2 falls in the last year or 1 fall with injury or currently using an Ambulatory Assistive Device (Walker, Cane, Wheelchair, Crutches, etc.)? Yes, Patient High Risk for Falls What interventions were put in place to prevent falls during this visit? Increased Observations by Caregivers PATIENT GENDER DATA: Assigned female at . status: : No status: NO. PATIENT RELEVANT IMPLANT DATA REVIEWED: Not Applicable PATIENT PRESENTS WITH AN IMPLANTABLE OR ATTACHED COMBAT SYSTEMS OPERATOR: No RADIOLOGY DEPARTMENT: Mammography PERIPHERAL IV DATA: Not applicable SIGNED BY: Shawna Jaquez Data[employer] Tech February 24, 2025 9:59 [facility]08-13-2025 History and physical note Author Russ Mancuso [facility] Note Date/Time February 22, 2025 6: 41pm [facility] [address] [place] [address] H&P Exam - Wound Care 02/22/25 1830 MR#: [id number] Acct: [id number] Name: CLAUDIA HEBERT Rep #:[id number] : 1980 44 From: Russ Ramirez PCP: MORE BurchC Status:REG RCR Location: History of Present Illness Date of Service: 02/21/25 Chief Complaint: Traumatic wound of the right lower extremity History of Wound: This is a morbidly obese 44-year-old diabetic female who presented with a wound on her right pretibial surface. According to patient, the wound began in November 2024 as result of trauma when she fell down a flight of stairs. Since the time of her initial injury, the patient has been evaluated and treated in various medical facilities, including the [facility] Emergency Department and the Emergency Department at the [facility]. She was seen at the [facility] ER on January 02, 2025, at which time she was treated with a prescription for cephalexin 500 mg p.o. every 6 hours for 10 days. More recently, the patient was evaluated in the Emergency Department at the [facility] on February 07, at which time she was briefly admitted and subsequently discharged with prescriptions for oral Bactrim and Levaquin. According to the patient, a prior wound culture was positive for Staph aureus. She also indicates that her hemoglobin A1c was obtained on January 24, 2025, which was 5.9. She denies that she is diabetic. She also denies a history of myocardial infarction, congestive heart failure, cerebrovascular accident, renal disease, thyroid disease, and hypertension. She is known to be a smoker, and suffers from COPD and asthma. She also has obstructive sleep apnea, for which she uses CPAP. She is morbidly obese, with a BMI of 62.5. Thepatient admits to sleeping in a recliner. She is not active, and sits in idle fashion throughout most of each day. She denies a history of lower extremity thrombophlebitis. [facility] Medical History Dependent edema Obstructive sleep apnea on CPAP Morbid obesity with BMI of 60.0-69.9, adult Non-pressure ulcer of right lower extremity with fat layer exposed Wound of right lower extremity Asthma Tobacco abuse counseling Tobacco abuse Schizophrenia ADHD Hyperlipidemia GERD (gastroesophageal reflux disease) Toxoplasmosis chorioretinitis COPD (chronic obstructive pulmonary disease) Asthma Home Medications ?Medication ?Instructions ?Recorded ?Last Taken ?Type albuterol sulfate 90 mcg/actuation 2 puff inhalation Q 4H PRN PRN 07/11/24 Unknown Rx aerosol inhaler (Ventolin HFA) Wheezing ##1 celecoxib 100 mg capsule 100 mg PO DAILY 01/02/25 Unk nown History cetirizine 10 mg tablet 10 mg PO DAILY 01/02/25 Unkn own History pantoprazole 40 mg tablet,delayed 40 mg PO DAILY 01/02 Unknown History release risperidone 0.5 mg tablet 0.5 mg PO QHS 01/02/25 Unkno wn History trazodone 50 mg tablet 100 mg PO QHS 01/02/25 Unkno wn History atorvastatin 10 mg tablet (Lipitor) 10 mg PO DAILY 12/04 Unknown History bupropion HCl 150 mg 24 hr tablet, 150 mg PO DAILY 12/04 Unknown History extended release (Wellbutrin XL) fluconazole 150 mg tablet 150 mg PO QWEEK 02/14/25 Unk nown History fluticasone 250 mcg-salmeterol 50 1 inh inhalation BID 02/14/25 Unknown History mcg/dose blistr powdr for inhalation (Advair Diskus) ipratropium 0.5 mg-albuterol 3 mg ml 02/14/25 Unknown History (2.5 mg base)/3 mL nebulization soln lumateperone 21 mg capsule 21 mg PO DAILY 02/14/25 Unk nown History (Caplyta) omega-3 acid ethyl esters 1 gram cap PO 02/14/25 Unkno wn History capsule propranolol 20 mg tablet 20 mg PO BID 02/14/25 Unknow n History doxycycline monohydrate 100 mg 100 mg PO BID 02/21/25 Unknown History capsule doxycycline monohydrate 100 mg 100 mg PO BID 02/21/25 Unknown History capsule Allergy/AdvReac Type Severity Reaction Status Date / Time nystatin Allergy Intermediate Rash Verified 02/14/25 14:21 Surgical History Hx of cholecystectomy Hx of appendectomy Social History household members: friend(s) Smoking Status: Current every day smoker tobacco type: cigarettes Vital Signs Vital Signs Vital Signs: Weight Weight: 320 lb Body Mass Index (BMI) 62.4 Physical Exam Const alert, oriented x3, no apparent distress, no limitations and well nourished Constitutional Narrative: The patient is morbidly obese. Her BMI is 62.5. General Appearance: cooperative, comfortable and well developed Orientation / Consciousness: awake, oriented to person, oriented to place and oriented to time Exam Limitations: no limitations Nutritional Appearance: overweight HEENT normocephalic and head/scalp atraumatic Head and Scalp: normal to inspection, normocephalic and atraumatic Face and Sinus: normal facial exam Nose: external nose normal External Ear: external ears normal Eyes EOMs intact bilaterally General Eye: normal appearance of both eyes Neck full ROM Resp normal respiratory effort, normal air movement, no retractions and no use of accessory muscles Effort and Inspection: able to speak in complete sentences Extremity no calf tenderness General Extremity: Negative for clubbing or cyanosis Skin Wound Narrative: A wound is noted on the right pretibial surface. It appears to be full- thickness, extending through all layers of the dermis and into the subcutaneous tissues. Wound margins are well beveled. Dimensions are documented elsewhere. The wound has decreased in size significantly since the patient's last visit, and is now nearly healed. A large area of epidermal slough is noted surroundingthe wound. The swelling of the patient's right lower extremity is now minimal, much improved from the patient's prior visit. There is no sign of infection or cellulitis. Neuro oriented x3, CN's II-XII intact bilaterally, moves all extremities, no focal motor deficits and no sensory deficits noted Sensorium / Orientation: awake, alert, oriented to person, oriented to place andoriented to time Speech: speech normal Psych Appearance: grossly normal and appropriate Attitude: calm Activity / Motor Behavior: appropriate eye contact Speech: normal speech Mood & Affect: euthymic mood Thought Process: normal thought process Thought Content: normal thought content Attention / Concentration: attention grossly intact Debridement Note Debridement Note No debridement was completed: No debridement was completed today (Epidermal slough is noted surrounding the wound, which was gently removed using a sterile 5 mm curette.) Post-Debridement Measurements and Additional Note: Post-Debridement Measurements/Treatment - Nurse 1 - General Ulcer Assessment Start: 02/14/25 14:00 Freq: Status: Active Protocol: PAOLO Activity Type Activity Date Activity User E-sign Co-sign Detail Recorded Client Recorded Date Recorded By Document 02/14/25 14:00 [id number] 02/14/25 14:17 Document 02/17/25 10:22 [id number] 02/17/25 10:24 Document 02/21/25 11:38 [facility] [id number] 02/21/25 11:44 [facility] 02/14/25 02/17/25 02/21/25 14:00 10:22 11:38 [facility] Today's Visit Information Type of service Initial Visit Nurse-only Follow-up Visit Visit (Physician/FIRE INVESTIGATION MANAGER ) Arrival Mode Ambulatory Ambulatory Ambulatory Transfer Assistance None None Accompanied by friend JOURNEYMAN M[employer]WR[employer]NER Patient Identification Verified (Name & Yes Yes Yes ) Patient Requires Transmission-Based No No No Precautions Height and Weight Height 5 ft Weight 320 lb Weight in Pounds 320.0 lbs Weight Measurement Method Estimated by Patient Body Mass Index (BMI) 62.4 62.4 62.4 BMI Classification Obese Obese Obese Vital Signs Temperature (97.8 F-99.1 F) 97.6 F L 97.6 F L 97.6 F L Temperature Source Temporal Temporal Temporal Pulse Rate (60-100) 86 80 87 Pulse Location Monitor Monitor Monitor Respiratory Rate (12-18) 18 18 20 H Respiratory rate source Observation Observation Observation Oxygen Delivery Method Room Air Blood Pressure (90/60-120/80) 187/61 H 147/80 H 128/67 H Blood Pressure Mean 103 102 87 Source Monitor Monitor Monitor Position Semi-Fowlers Semi-Fowlers Sitting Blood Pressure Location Right Arm Left Arm Left Forearm History Since Last Visit- (Skip if this is Patient's initial visit) Have you changed medications since your No Yes last visit? Any new allergies or adverse reactions No No Had a fall/change in ADL's that may No No increase risk of falls Signs or symptoms of abuse and/or No No neglect since last visit Have you been in the hospital since your No No last visit? Has dressing in place as prescribed Yes No Has compression in place as prescribed Yes No Has offloadiing in place as prescribed N/A N/A Experienced any changes in pain level or No No management Left Footwear Regular Shoe Regular Shoe Regular Shoe Right Footwear Regular Shoe Regular Shoe Regular Shoe Other Footwear REMOVED WRAP TO SHOWER 1 HR PRIOR TO APPT Pain Scale: 0-10 Numeric Is Patient Pain Free? Yes Yes Yes Lower Extremity Assessment/ Foot Assessment/ Toe Nail Assessment Right -Posterior Tibial Palpable Yes -Dorsalis Pedis Palpable Yes -Extremity Color Hyperpigmented -Hair Growth on Legs Yes -Hair Growth on Toes Yes -Temperature of Extremity Warm -Capillary Refill Less than 3 Seconds -Prior Foot Ulcer No -Thick Yes -Discolored Yes -Deformed No -Improper Length & Hygeine No Communication Assessment Preferred language Angolan Able to Read Yes Able to Write Yes Communication Tools None Right Hearing Abillity Normal Left Hearing Abillity Normal Visual Assistive Devices Glasses Teaching Assessment Preferences Verbal,Written, Audio/Visual, Demonstration Barriers to Learning None Readiness To Learn Good Willingness to Engage in Self Management Med Activies Readiness to Engage in Self Management Med Activities Anxiety Level Anxious Cooperation Cooperative Perception Coherent Interest in Health Problem Asks Questions Education Importance Acknowledges Need Does Patient Smoke tobacco or other Yes substances Smoking Status Current every day smoker Is Patient Diabetic No Functional Assessment Recent Decline in Ability to Perform Denies Any Declines Culture/Temple/Doll Surgeon Cultural/Temple Needs that may affect No Treatment Plan Would you allow our hospital laborer golf course to No meet you for the purpose of spiritual/ emotional support? Doll Surgeon to contact [facility] No Teaching: Wound Center [facility] Orientation/ Contacting Physician -Person Taught Patient,Family -Teaching Method Discussion, Demonstration -Response to teaching Return Demonstration, Verbalize Understanding [facility] Nurse 1 - General Ulcer Measurement Start: 02/14/25 14:00 Freq: Status: Active Protocol: Activity Type Activity Date Activity User E-sign Co-sign Detail Recorded Client Recorded Date Recorded By Document 02/14/25 14:00 JF [id number] 02/14/25 14:17 JF Document 02/17/25 10:22 RB [id number] 02/17/25 10:24 RB Document 02/21/25 11:38 BM [id number] 02/21/25 11:44 BM 02/14/25 02/17/25 02/21/25 14:00 10:22 11:38 Wound Center Nurse 1 1-right de souza -Combined with other wound No No -Current Size (cm) - Length 5 0.8 -Current Size (cm) - Width 2.6 0.6 -Current Size (cm) - Depth 0.1 0.1 -Total Square Cm 13.0 0.48 -Date of Last Picture (Recall this 02/21/25 field) -Photo Taken Yes Yes -Epithelialization Small 1-33% Medium 34-66% -Tunneling No No -Undermining/Tunneling No No -Circular Undermining No No -Exudate Amt Small Large Small -Exudate Type Serosanguineous Serosanguineous Serous -Wound Margin Flat & Intact Distinct, Flat & Intact Outline Attached -Granulation Amt Medium (34-66%) Large (67-100%) Small (1-33%) -Granulation Quality Pale [place] Red -Slough/Fibrin Yes Yes Yes -Necrosis Amt Large (67-100%) Small (1-33%) Large (67-100%) -Necrotic Tissue Type Adherent Slough Adherent Slough Adherent Slough -Structure Exposed N/A N/A -Texture (Brandy-wound Skin Appearance) Assessed, Assessed, Localized Edema Scarring -Moisture (Brandy-wound Skin Appearance) No Abnormality, Assessed,Dry/ Dry/Scaly Scaly -Color (Brandy-wound Skin Appearance) Assessed Assessed -Temperature (Brandy-wound Skin No Abnormality No Abnormality Appearance) (Pt Warm) (Pt Warm) -Tenderness on Palpation (Brandy-wound No No Skin Appearance) -Ulcer Cleansing Soap and Water Soap and Water -Foul Odor after Cleansing No No -Anesthetic Used 5% Lidocaine 5% Lidocaine Gel Gel Lower Limb Edema Present Yes Yes Right Calf (cm) 44 41.4 Right Ankle (cm) 20.8 20.8 WC - Nurse 2 - General Ulcer CM Notes Start: 02/14/25 14:00 Freq: Status: Active Protocol: Activity Type Activity Date Activity User E-sign Co-sign Detail Recorded Client Recorded Date Recorded By Document 02/14/25 14:45 DS [id number] 02/14/25 14:48 DS Document 02/21/25 12:11 JF [id number] 02/21/25 12:15 JF 02/14/25 02/21/25 14:45 12:11 Wound Center Nurse 2 1-right de souza -Time 14:45 12:11 -Correct Patient Yes Yes -Correct Side, Site, Position Yes No -Correct Procedure Yes No -Procedure Performed Yes No -Type of Procedure Debridement -Clinical Debridement Subcutaneous -Tissue Removed Subcutaneous -Post Debridement (cm) - Length 3.8 3.2 -Post Debridement (cm) - Width 3.0 1 -Post Debridement (cm) - Depth 0.1 0.1 -Total Square (Post) (cm) 11.40 3.2 -Area of Debridement (cm) - Length 3.8 3.2 -Area of Debridement (cm) - Width 3.0 1.0 -Total Square (Area) (cm) 11.40 3.20 -Tunneling No No -Undermining/Tunneling No No -Circular Undermining No No -Wound/Ulcer Outcome Not Healed Not Healed -Ulcer Cleansing Rinsed/ Irrigated with Saline -Foul Odor after Cleansing No No -Bioengineered Tissue No No -Bleeding Controlled with Pressure Pressure -Treatment Response Procedure Procedure Tolerated Well Tolerated Well -Offloading No -Debridement - Subq, 1st 20sq cm Yes No Pain Scale: 0-10 Numeric Is Patient Pain Free? Yes Yes WC - Nurse 3 - General Ulcer D/C NN Start: 02/14/25 14:00 Freq: Status: Active Protocol: Activity Type Activity Date Activity User E-sign Co-sign Detail Recorded Client Recorded Date Recorded By Document 02/14/25 16:02 KW [id number] 02/14/25 16:03 KW Document 02/17/25 10:22 RB [id number] 02/17/25 10:24 RB Document 02/21/25 12:25 KW [id number] 02/21/25 12:26 KW 02/14/25 02/17/25 02/21/25 16:02 10:22 12:25 Wound Care Center Nurse 3 1-right de souza -Ulcer Cleansing Wound Cleanser RLE -Multi-Layered Wrap Application Unna Boot - Unna Boot - Unna Boot - Right Right Right -Unna- Right (Qty applied) 1 1 1 Treatment Response Procedure Tolerated Well Pain Scale: 0-10 Numeric Is Patient Pain Free? Yes Yes Yes WC - Visit Discharge Discharge Condition Stable Stable Stable Ambulatory Status Ambulatory Ambulatory Ambulatory Transportation Private Auto Private Auto Private Auto Medication Reconcilliation completed & No No No provided to patient/care provider Clinical Summary of Care Provided Yes Yes Yes Charges/Coding Visit Charges Office Visits / Consults: 53230 OV L3 Est 20min Assessment/Plan Assessment/Plan (1) Non-pressure ulcer of right lower extremity with fat layer exposed: CODE(S): L97.912 - Non-pressure chronic ulcer of unspecified part of rightlower leg with fat layer exposed (2) Wound of right lower extremity: CODE(S): S81.801A - Unspecified open wound, right lower leg, initial encounter (3) Dependent edema: CODE(S): R60.9 - Edema, unspecified (4) Asthma: CODE(S): J45.909 - Unspecified asthma, uncomplicated (5) COPD (chronic obstructive pulmonary disease): CODE(S): J44.9 - Chronic obstructive pulmonary disease, unspecified (6) Tobacco abuse: CODE(S): Z72.0 - Tobacco use (7) Tobacco abuse counseling: CODE(S): Z71.6 - Tobacco abuse counseling (8) Morbid obesity with BMI of 60.0-69.9, adult: CODE(S): E66.01 - Morbid (severe) obesity due to excess calories; Z68.44 -Body mass index [BMI] 60.0-69.9, adult (9) Hx of cholecystectomy: CODE(S): Z90.49 - Acquired absence of other specified parts of digestive tract (10) Hx of appendectomy: CODE(S): Z90.49 - Acquired absence of other specified parts of digestive tract (11) GERD (gastroesophageal reflux disease): CODE(S): K21.9 - Gastro-esophageal reflux disease without esophagitis (12) Hyperlipidemia: CODE(S): E78.5 - Hyperlipidemia, unspecified (13) ADHD: CODE(S): F90.9 - Attention-deficit hyperactivity disorder, unspecified type (14) Schizophrenia: CODE(S): F20.9 - Schizophrenia, unspecified (15) Asthma: CODE(S): J45.909 - Unspecified asthma, uncomplicated (16) Obstructive sleep apnea on CPAP: CODE(S): G47.33 - Obstructive sleep apnea (adult) (pediatric) PLAN: Plan This is a morbidly obese diabetic female with multiple pre-existing medical problems. The patient presented with a traumatic wound on the right pretibial surface, the origin of which was due to trauma in November 2024. According to the patient, a prior culture was positive for Staph aureus, and the patient has completed a course of Bactrim and Levaquin orally. The patient has been counseled to discontinue her smoking habit. Optimizing her nutritional intake and glycemic control has also been encouraged. A dietary consultation has been arranged, and was undertaken today. The appropriate conservative measures relative to the management of chronic swelling and edema in the lower extremities have been discussed with the patient in detail. The patient has been encouraged to elevate her lower extremities as much as possible. Elevation is to be during both daytime and nighttime hours. Elevation is to be to heart level, or higher. Prolonged idle sitting has been discouraged. Activity has been encouraged. An Unna compression wrap has been applied, and is anticipated to be changed twice weekly. The patient is to return in 1 week for reevaluation. Patient's wound appears to be nearly healed. Lower extremity circumference measurements have been documented, and a prescription provided to the patient for graduated compression stockings of 20 to 30 mmHg, open toe, knee-high length. Total time: 25 minutes 02/22/25 184 <Electronically signed by Russ Mancuso MD> Cosigner Signature (if applicable): CC: ~ Signed [facility] Work Phone: [phone] History and physical note [facility] [address] [place] [address] H&P Exam - Wound Care 02/22/25 1830 MR#: [id number] Acct: [id number] Name: CLAUDIA HEBERT Rep #:[id number] : 1980 44 From: Russ Ramirez PCP: Akilah Knoble, FAMILY AND DIVORCE LEGAL ASSISTANT-C Status:REG RCR Location: History of Present Illness Date of Service: 02/21/25 Chief Complaint: Traumatic wound of the right lower extremity History of Wound: This is a morbidly obese 44-year-old diabetic female who presented with a wound on her right pretibial surface. According to patient, the wound began in November 2024 as result of traumawhen she fell down a flight of stairs. Since the time of her initial injury, the patient has been evaluated and treated in various medical facilities, including the [facility] Emergency Department and the Emergency Department at the [facility]. She was seen at the [facility] ER on January 02, 2025, at which time she was treated with a prescription for [id number] mg p.o. every 6 hours for 10 days. More recently, the patient was evaluated in the Emergency Department at the [facility] on February 07, at which time she was briefly admitted and subsequentlydischarged with prescriptions for oral Bactrim and Levaquin. According to the patient, a prior wound culture was positive for Staph aureus. She also indicates that her hemoglobin A1c was obtained on January 24, 2025, which was 5.9. She denies that she is diabetic. She also denies a history of myocardia l infarction, congestive heart failure, cerebrovascular accident, renal disease, thyroid disease, and hypertension. She is known to be a smoker, and suffers from COPD and asthma. She also has obstructive sleep apnea, for which she uses CPAP. She is morbidly obese, with a BMI of 62.5. Thepatient admits to sleeping in a recliner. She is not active, and sits in idle fashion throughout most of each day. She denies a history of lower extremity thrombophlebitis. [facility] Medical History Dependent edema Obstructive sleep apnea on CPAP Morbid obesity with BMI of 60.0-69.9, adult Non-pressure ulcer of right lower extremity with fat layer exposed Wound of right lower extremity Asthma Tobacco abuse counseling Tobacco abuse Schizophrenia ADHD Hyperlipidemia GERD (gastroesophageal reflux disease) Toxoplasmosis chorioretinitis COPD (chronic obstructive pulmonary disease) Asthma Home Medications ?Medication ?Instructions ?Recorded ?Last Taken ?Type albuterol sulfate 90 mcg/actuation 2 puff inhalation Q 4H PRN PRN 07/11/24 Unknown Rx aerosol inhaler (Ventolin HFA) Wheezing ##1 celecoxib 100 mg capsule 100 mg PO DAILY 01/02/25 Unk nown History cetirizine 10 mg tablet 10 mg PO DAILY 01/02/25 Unkn own History pantoprazole 40 mg tablet,delayed 40 mg PO DAILY 01/02 Unknown History release risperidone 0.5 mg tablet 0.5 mg PO QHS 01/02/25 Unkno wn History trazodone 50 mg tablet 100 mg PO QHS 01/02/25 Unkno wn History atorvastatin 10 mg tablet (Lipitor) 10 mg PO DAILY 12/04 Unknown History bupropion HCl 150 mg 24 hr tablet, 150 mg PO DAILY 12/04 Unknown History extended release (Wellbutrin XL) fluconazole 150 mg tablet 150 mg PO QWEEK 02/14/25 Unk nown History fluticasone 250 mcg-salmeterol 50 1 inh inhalation BID 02/14/25 Unknown History mcg/dose blistr powdr for inhalation (Advair Diskus) ipratropium 0.5 mg-albuterol 3 mg ml 02/14/25 Unknown History (2.5 mg base)/3 mL nebulization soln lumateperone 21 mg capsule 21 mg PO DAILY 02/14/25 Unk nown History (Caplyta) omega-3 acid ethyl esters 1 gram cap PO 02/14/25 Unkno wn History capsule propranolol 20 mg tablet 20 mg PO BID 02/14/25 Unknow n History doxycycline monohydrate 100 mg 100 mg PO BID 02/21/25 Unknown History capsule doxycycline monohydrate 100 mg 100 mg PO BID 02/21/25 Unknown History capsule Allergy/AdvReac Type Severity Reaction Status Date / Time nystatin Allergy Intermediate Rash Verified 02/14/25 14:21 Surgical History Hx of cholecystectomy Hx of appendectomy Social History household members: friend(s) Smoking Status: Current every day smoker tobacco type: cigarettes Vital Signs Vital Signs Vital Signs: Weight Weight: 320 lb Body Mass Index (BMI) 62.4 Physical Exam Const alert, oriented x3, no apparent distress, no limitations and well nourished Constitutional Narrative: The patient is morbidly obese. Her BMI is 62.5. General Appearance: cooperative, comfortable and well developed Orientation / Consciousness: awake, oriented to person, oriented to place and oriented to time Exam Limitations: no limitations Nutritional Appearance: overweight HEENT normocephalic and head/scalp atraumatic Head and Scalp: normal to inspection, normocephalic and atraumatic Face and Sinus: normal facial exam Nose: external nose normal External Ear: external ears normal Eyes EOMs intact bilaterally General Eye: normal appearance of both eyes Neck full ROM Resp normal respiratory effort, normal air movement, no retractions and no use of accessory muscles Effort and Inspection: able to speak in complete sentences Extremity no calf tenderness General Extremity: Negative for clubbing or cyanosis Skin Wound Narrative: A wound is noted on the right pretibial surface. It appears to be full- thickness, extending throughall layers of the dermis and into the subcutaneous tissues. Wound margins are well beveled. Dimensions are documented elsewhere. The wound has decreased in size significantly since the patient's lastvisit, and is now nearly healed. A large area of epidermal slough is noted surroundingthe wound. The swelling of the patient's right lower extremity is now minimal, much improved from the patient's prior visit. There is no sign of infection or cellulitis. Neuro oriented x3, CN's II-XII intact bilaterally, moves all extremities, no focal motor deficits and no sensory deficits noted Sensorium / Orientation: awake, alert, oriented to person, oriented to place andoriented to time Speech: speech normal Psych Appearance: grossly normal and appropriate Attitude: calm Activity / Motor Behavior: appropriate eye contact Speech: normal speech Mood & Affect: euthymic mood Thought Process: normal thought process Thought Content: normal thought content Attention / Concentration: attention grossly intact Debridement Note Debridement Note No debridement was completed: No debridement was completed today (Epidermal slough is noted surrounding the wound, which was gently removed using a sterile 5 mm curette.) Post-Debridement Measurements and Additional Note: Post-Debridement Measurements/Treatment YAZAN - Nurse 1 - General Ulcer Assessment Start: 02/14/25 14:00 Freq: Status: Active Protocol: PAOLO Activity Type Activity Date Activity User E-sign Co-sign Detail Recorded Client Recorded Date Recorded By Document 02/14/25 14:00 AURELIO [id number] 02/14/25 14:17 JF Document 02/17/25 10:22 RB [id number] 02/17/25 10:24 RB Document 02/21/25 11:38 BMF [id number] 02/21/25 11:44 BMF 02/14/25 02/17/25 02/21/25 14:00 10:22 11:38 WC - Today's Visit Information Type of service Initial Visit Nurse-only Follow-up Visit Visit (Physician/FIRE INVESTIGATION MANAGER ) Arrival Mode Ambulatory Ambulatory Ambulatory Transfer Assistance None None Accompanied by friend JOURNEYMAN [employer]WR[employer]NER Patient Identification Verified (Name & Yes Yes Yes ) Patient Requires Transmission-Based No No No Precautions Height and Weight Height 5 ft Weight 320 lb Weight in Pounds 320.0 lbs Weight Measurement Method Estimated by Patient Body Mass Index (BMI) 62.4 62.4 62.4 BMI Classification Obese Obese Obese Vital Signs Temperature (97.8 F-99.1 F) 97.6 F L 97.6 F L 97.6 F L Temperature Source Temporal Temporal Temporal Pulse Rate (60-100) 86 80 87 Pulse Location Monitor Monitor Monitor Respiratory Rate (12-18) 18 18 20 H Respiratory rate source Observation Observation Observation Oxygen Delivery Method Room Air Blood Pressure (90/60-120/80) 187/61 H 147/80 H 128/67 H Blood Pressure Mean 103 102 87 Source Monitor Monitor Monitor Position Semi-Fowlers Semi-Fowlers Sitting Blood Pressure Location Right Arm Left Arm Left Forearm History Since Last Visit- (Skip if this is Patient's initial visit) Have you changed medications since your No Yes last visit? Any new allergies or adverse reactions No No Had a fall/change in ADL's that may No No increase risk of falls Signs or symptoms of abuse and/or No No neglect since last visit Have you been in the hospital since your No No last visit? Has dressing in place as prescribed Yes No Has compression in place as prescribed Yes No Has offloadiing in place as prescribed N/A N/A Experienced any changes in pain level or No No management Left Footwear Regular Shoe Regular Shoe Regular Shoe Right Footwear Regular Shoe Regular Shoe Regular Shoe Other Footwear REMOVED WRAP TO SHOWER 1 HR PRIOR TO APPT Pain Scale: 0-10 Numeric Is Patient Pain Free? Yes Yes Yes Lower Extremity Assessment/ Foot Assessment/ Toe Nail Assessment Right -Posterior Tibial Palpable Yes -Dorsalis Pedis Palpable Yes -Extremity Color Hyperpigmented -Hair Growth on Legs Yes -Hair Growth on Toes Yes -Temperature of Extremity Warm -Capillary Refill Less than 3 Seconds -Prior Foot Ulcer No -Thick Yes -Discolored Yes -Deformed No -Improper Length & Hygeine No Communication Assessment Preferred language Angolan Able to Read Yes Able to Write Yes Communication Tools None Right Hearing Abillity Normal Left Hearing Abillity Normal Visual Assistive Devices Glasses Teaching Assessment Preferences Verbal,Written, Audio/Visual, Demonstration Barriers to Learning None Readiness To Learn Good Willingness to Engage in Self Management Med Activies Readiness to Engage in Self Management Med Activities Anxiety Level Anxious Cooperation Cooperative Perception Coherent Interest in Health Problem Asks Questions Education Importance Acknowledges Need Does Patient Smoke tobacco or other Yes substances Smoking Status Current every day smoker Is Patient Diabetic No Functional Assessment Recent Decline in Ability to Perform Denies Any Declines Culture/Temple/Doll Surgeon Cultural/Temple Needs that may affect No Treatment Plan Would you allow our hospital laborer golf course to No meet you for the purpose of spiritual/ emotional support? Doll Surgeon to contact [facility] No Teaching: Wound Center [facility] Orientation/ Contacting Physician -Person Taught Patient,Family -Teaching Method Discussion, Demonstration -Response to teaching Return Demonstration, Verbalize Understanding [facility] Nurse 1 - General Ulcer Measurement Start: 02/14/25 14:00 Freq: Status: Active Protocol: Activity Type Activity Date Activity User E-sign Co-sign Detail Recorded Client Recorded Date Recorded By Document 02/14/25 14:00 [id number] 02/14/25 14:17 Document 02/17/25 10:22 RB [id number] 02/17/25 10:24 RB Document 02/21/25 11:38 [facility] [id number] 02/21/25 11:44 [facility] 02/14/25 02/17/25 02/21/25 14:00 10:22 11:38 Wound Center Nurse 1 1-right de souza -Combined with other wound No No -Current Size (cm) - Length 5 0.8 -Current Size (cm) - Width 2.6 0.6 -Current Size (cm) - Depth 0.1 0.1 -Total Square Cm 13.0 0.48 -Date of Last Picture (Recall this 02/21/25 field) -Photo Taken Yes Yes -Epithelialization Small 1-33% Medium 34-66% -Tunneling No No -Undermining/Tunneling No No -Circular Undermining No No -Exudate Amt Small Large Small -Exudate Type Serosanguineous Serosanguineous Serous -Wound Margin Flat & Intact Distinct, Flat & Intact Outline Attached -Granulation Amt Medium (34-66%) Large (67-100%) Small (1-33%) -Granulation Quality Pale [place] Red -Slough/Fibrin Yes Yes Yes -Necrosis Amt Large (67-100%) Small (1-33%) Large (67-100%) -Necrotic Tissue Type Adherent Slough Adherent Slough Adherent Slough -Structure Exposed N/A N/A -Texture (Brandy-wound Skin Appearance) Assessed, Assessed, Localized Edema Scarring -Moisture (Brandy-wound Skin Appearance) No Abnormality, Assessed,Dry/ Dry/Scaly Scaly -Color (Brandy-wound Skin Appearance) Assessed Assessed -Temperature (Brandy-wound Skin No Abnormality No Abnormality Appearance) (Pt Warm) (Pt Warm) -Tenderness on Palpation (Brandy-wound No No Skin Appearance) -Ulcer Cleansing Soap and Water Soap and Water -Foul Odor after Cleansing No No -Anesthetic Used 5% Lidocaine 5% Lidocaine Gel Gel Lower Limb Edema Present Yes Yes Right Calf (cm) 44 41.4 Right Ankle (cm) 20.8 20.8 WC - Nurse 2 - General Ulcer CM Notes Start: 02/14/25 14:00 Freq: Status: Active Protocol: Activity Type Activity Date Activity User E-sign Co-sign Detail Recorded Client Recorded Date Recorded By Document 02/14/25 14:45 DS [id number] 02/14/25 14:48 DS Document 02/21/25 12:11 AURELIO [id number] 02/21/25 12:15 02/14/25 02/21/25 14:45 12:11 Wound Center Nurse 2 1-right de souza -Time 14:45 12:11 -Correct Patient Yes Yes -Correct Side, Site, Position Yes No -Correct Procedure Yes No -Procedure Performed Yes No -Type of Procedure Debridement -Clinical Debridement Subcutaneous -Tissue Removed Subcutaneous -Post Debridement (cm) - Length 3.8 3.2 -Post Debridement (cm) - Width 3.0 1 -Post Debridement (cm) - Depth 0.1 0.1 -Total Square (Post) (cm) 11.40 3.2 -Area of Debridement (cm) - Length 3.8 3.2 -Area of Debridement (cm) - Width 3.0 1.0 -Total Square (Area) (cm) 11.40 3.20 -Tunneling No No -Undermining/Tunneling No No -Circular Undermining No No -Wound/Ulcer Outcome Not Healed Not Healed -Ulcer Cleansing Rinsed/ Irrigated with Saline -Foul Odor after Cleansing No No -Bioengineered Tissue No No -Bleeding Controlled with Pressure Pressure -Treatment Response Procedure Procedure Tolerated Well Tolerated Well -Offloading No -Debridement - Subq, 1st 20sq cm Yes No Pain Scale: 0-10 Numeric Is Patient Pain Free? Yes Yes - Nurse 3 - General Ulcer D/C NN Start: 02/14/25 14:00 Freq: Status: Active Protocol: Activity Type Activity Date Activity User E-sign Co-sign Detail Recorded Client Recorded Date Recorded By Document 02/14/25 16:02 [id number] 02/14/25 16:03 KW Document 02/17/25 10:22 RB [id number] 02/17/25 10:24 RB Document 02/21/25 12:25 [id number] 02/21/25 12:26 KW 02/14/25 02/17/25 02/21/25 16:02 10:22 12:25 Wound Care Center Nurse 3 1-right de souza -Ulcer Cleansing Wound Cleanser RLE -Multi-Layered Wrap Application Unna Boot - Unna Boot - Unna Boot - Right Right Right -Unna- Right (Qty applied) 1 1 1 Treatment Response Procedure Tolerated Well Pain Scale: 0-10 Numeric Is Patient Pain Free? Yes Yes Yes - Visit Discharge Discharge Condition Stable Stable Stable Ambulatory Status Ambulatory Ambulatory Ambulatory Transportation Private Auto Private Auto Private Auto Medication Reconcilliation completed & No No No provided to patient/care provider Clinical Summary of Care Provided Yes Yes Yes Charges/Coding Visit Charges Office Visits / Consults: 97221 OV L3 Est 20min Assessment/Plan Assessment/Plan (1) Non-pressure ulcer of right lower extremity with fat layer exposed: CODE(S): L97.912 - Non-pressure chronic ulcer of unspecified part of rightlower leg with fat layer exposed (2) Wound of right lower extremity: CODE(S): S81.801A - Unspecified open wound, right lower leg, initial encounter (3) Dependent edema: CODE(S): R60.9 - Edema, unspecified (4) Asthma: CODE(S): J45.909 - Unspecified asthma, uncomplicated (5) COPD (chronic obstructive pulmonary disease): CODE(S): J44.9 - Chronic obstructive pulmonary disease, unspecified (6) Tobacco abuse: CODE(S): Z72.0 - Tobacco use (7) Tobacco abuse counseling: CODE(S): Z71.6 - Tobacco abuse counseling (8) Morbid obesity with BMI of 60.0-69.9, adult: CODE(S): E66.01 - Morbid (severe) obesity due to excess calories; Z68.44 -Body mass index [BMI] 60.0-69.9, adult (9) Hx of cholecystectomy: CODE(S): Z90.49 - Acquired absence of other specified parts of digestive tract (10) Hx of appendectomy: CODE(S): Z90.49 - Acquired absence of other specified parts of digestive tract (11) GERD (gastroesophageal reflux disease): CODE(S): K21.9 - Gastro-esophageal reflux disease without esophagitis (12) Hyperlipidemia: CODE(S): E78.5 - Hyperlipidemia, unspecified (13) ADHD: CODE(S): F90.9 - Attention-deficit hyperactivity disorder, unspecified type (14) Schizophrenia: CODE(S): F20.9 - Schizophrenia, unspecified (15) Asthma: CODE(S): J45.909 - Unspecified asthma, uncomplicated (16) Obstructive sleep apnea on CPAP: CODE(S): G47.33 - Obstructive sleep apnea (adult) (pediatric) PLAN: Plan This is a morbidly obese diabetic female with multiple pre-existing medical problems. The patient presented with a traumatic wound on the right pretibial surface, the origin of which was due to trauma in November 2024. According to the patient, a prior culture was positive for Staph aureus, and the patient has completed a course of Bactrim and Levaquin orally. The patient has been counseled to discontinue her smoking habit. Optimizing her nutritional intake and glycemic control has also been encouraged. A dietary consultation has been arranged, and was undertaken today. The appropriate conservative measures relative to the management of chronic swelling and edema in the lower extremities have been discussed with the patient in detail. The patient has been encouraged to elevate her lower extremities as much as possible. Elevation is to be during both daytime and nighttime hours. Elevation is to be to heart level, or higher. Prolonged idle sitting has been discouraged. Activity has been encouraged. An Unna compression wrap has been applied, and is anticipated to be changed twice weekly. The patient is to return in 1 week for reevaluation. Patient's wound appears to be nearly healed. Lower extremity circumference measurements have been documented, and a prescription provided to the patient for graduated compression stockings of 20 to 30 mmHg, open toe, knee-high length. Total time: 25 minutes 02/22/25 1841 Cosigner Signature (if applicable): CC: ~ Signed [facility]08-13-2025 Telephone encounter Note* Telephone Encounter - Jimena - 02/22/2025 5:06 PM EDT Record ID: [id number] Patient name: Claudia Hebert Date: February 22, 2025 - 12:06 Administered by: JIMENA Protocol: -> Great! Now we are in a secure chat environment. Protecting your health information is important to us. Ok, let's get started. Please verify your name and date of . Please click on the button with your first name. -> Claudia Got it. On to the next question... Select the button with your last name. -> Anup Got it, thank you. Please enter your date of in MM/DD/YYYY format:(e.g., 07/31/1967 for Jul 31, 1967) -> 1980 Thank you for verifying your information. I'd like to ask you a few questions about how your recovery is going. Since leaving the hospital, do you have any new or worsening symptoms? -> No I'm glad to hear that. We encourage a follow-up appointment with a provider to oversee your recovery. It appears that you do not have a follow-up appointment with a provider. Please contact the 02/02 Appointment Center at [ ](tel: ) to schedule a follow-up appointment. Thank you for your time andallowing us to care for you. We will check in on you over the next four weeks to ensure you continue to recover and support your needs. In the meantime, please reach out to your PCP for any questionsor concerns.Thank you for choosing [facility]! -> Great! Now we are in a secure chat environment. Protecting your health information is important to us. Ok, let's get started. Please verify your name and date of . Please click on the button with your first name. -> Claudia Got it. On to the next question... Select the button with your last name. -> Anup Got it, thank you. Please enter your date of in MM/DD/YYYY format:(e.g., 07/31/1967 for Jul 31, 1967) -> 1980 Thank you for verifying your information. I'd like to ask you a few questions about how your recovery is going. Have you experienced any new or worsening symptoms since returning home? -> Yes And how have these symptoms changed since you first noticed them? -> Better To play it safe, your symptoms should be reviewed by a clinician. If you think this is a medical emergency, go to the nearest emergency room or call 911. Otherwise you can expect a call from a [facility] registered nurse within the next business day. Thank you for your time and allowing us tocare for you. We will check in on you over the next four weeks to ensure you continue to recover and support your needs. In the meantime, please reach out to your PCP for any questions or concerns.Thank you for choosing [facility]! -> Great! Now we are in a secure chat environment. Protecting your health information is important to us. Ok, let's get started. Please verify your name and date of . Please click on the button with your first name. -> Claudia Got it. On to the next question... Select the button with your last name. -> Anup Got it, thank you. Please enter your date of in MM/DD/YYYY format:(e.g., 07/31/1967 for Jul 31, 1967) -> 1980 Thank you for verifying your information. I'd like to ask you a few questions about how your recovery is going. Have there been any new or worsening symptoms since your last response? -> No I'm glad to hear that. Thank you for your time and for allowing us to care for you. Please be sure to reach out to your provider for any further symptoms or needs. Please rate your satisfaction with the care and support you have received from us since you have been home: (scale 1-5; 1 worst and 5 best) -> 5 Please tell me what you liked best about your experience: -> it was good Please tell me what you liked least about your experience: -> nothing [facility]08-13-2025 Miscellaneous Notes* Telephone Encounter - Jimena - 02/22/2025 5:06 PM EDT Record ID: [id number] Patient name: Claudia Hebert Date: February 22, 2025 - 12:06 Administered by: JIMENA Protocol: -> Great! Now we are in a secure chat environment. Protecting your health information is important to us. Ok, let's get started. Please verify your name and date of . Please click on the button with your first name. -> Claudia Got it. On to the next question... Select the button with your last name. -> Anup Got it, thank you. Please enter your date of in MM/DD/YYYY format:(e.g., 07/31/1967 for Jul 31, 1967) -> 1980 Thank you for verifying your information. I'd like to ask you a few questions about how your recovery is going. Since leaving the hospital, do you have any new or worsening symptoms? -> No I'm glad to hear that. We encourage a follow-up appointment with a provider to oversee your recovery. It appears that you do not have a follow-up appointment with a provider. Please contact the 02/02 Appointment Center at [ ](tel: ) to schedule a follow-up appointment. Thank you for your time andallowing us to care for you. We will check in on you over the next four weeks to ensure you continue to recover and support your needs. In the meantime, please reach out to your PCP for any questionsor concerns.Thank you for choosing [facility]! -> Great! Now we are in a secure chat environment. Protecting your health information is important to us. Ok, let's get started. Please verify your name and date of . Please click on the button with your first name. -> Claudia Got it. On to the next question... Select the button with your last name. -> Anup Got it, thank you. Please enter your date of in MM/DD/YYYY format:(e.g., 07/31/1967 for Jul 31, 1967) -> 1980 Thank you for verifying your information. I'd like to ask you a few questions about how your recovery is going. Have you experienced any new or worsening symptoms since returning home? -> Yes And how have these symptoms changed since you first noticed them? -> Better To play it safe, your symptoms should be reviewed by a clinician. If you think this is a medical emergency, go to the nearest emergency room or call 911. Otherwise you can expect a call from a [facility] registered nurse within the next business day. Thank you for your time and allowing us tocare for you. We will check in on you over the next four weeks to ensure you continue to recover and support your needs. In the meantime, please reach out to your PCP for any questions or concerns.Thank you for choosing [facility]! -> Great! Now we are in a secure chat environment. Protecting your health information is important to us. Ok, let's get started. Please verify your name and date of . Please click on the button with your first name. -> Claudia Got it. On to the next question... Select the button with your last name. -> Anup Got it, thank you. Please enter your date of in MM/DD/YYYY format:(e.g., 07/31/1967 for Jul 31, 1967) -> 1980 Thank you for verifying your information. I'd like to ask you a few questions about how your recovery is going. Have there been any new or worsening symptoms since your last response? -> No I'm glad to hear that. Thank you for your time and for allowing us to care for you. Please be sure to reach out to your provider for any further symptoms or needs. Please rate your satisfaction with the care and support you have received from us since you have been home: (scale 1-5; 1 worst and 5 best) -> 5 Please tell me what you liked best about your experience: -> it was good Please tell me what you liked least about your experience: -> nothing [facility] Instructions* Patient Instructions* Akilah Wiggins APRN.CNP - 02/21/2025 4:07 PM EDT -Call shu ENT -Call [facility] documented in this encounterPrem[facility]08-12-2025 NoteHNO ID: [id number] Author: AKILAH WIGGINS APRN.CNP Service: ? Author Type: Nurse Practitioner Type: Progress Notes Filed: 02/21/2025 16:16 Note Text: Transitional Care Management TCM Eligibility Documentation Outreach completed via text messaging service. Provider Documentation Claudia Hebert is a 44 year old female here today for a follow up from recent hospitalization. I have reviewed the patient's hospital course including discharge summary, discharge medications, and follow up needs with the patient and any family members present at today's visit. HPI HOSPITAL COURSE: 44-year-old female admitted to the hospital with painful lower extremity wounds and redness suspicious for cellulitis. She was treated with IV antibiotics and early growth was positive for Staph aureus with some gram-negative bacilli in the Gram stain. Final culture results are pending. Patient expressed desire to be discharge because of which she was plan for discharge on Bactrim and Levaquin and will need wound cultures followed up. She was also seen to have volume overload and echocardiogram was suggestive of grade 3 left ventricular diastolic dysfunction with right ventricular dilatation and preserved right medical function. She was started on low-dose diuretics along with potassium supplementation and she will need outpatient follow-up with primary care physician with repeat lab work in 1 week. She will also need outpatient wound care follow-up for continued wound care. Referral and contact information was given to the patient. She was then plan for discharge home with outpatient follow-up. Patient presents today with reports of improving area to leg, currently on doxycycline. Currently receiving wound care with [facility] wound center. Jaylin boot to right leg. BP 142/77 Pulse 89 Wt (!) 147 kg (324 lb 1.2 oz) LMP 09/14/2023 (Approximate) BMI 58.51 kg/m? Physical Exam PHYSICAL EXAMINATION: General appearance: Well appearing, alert, in no acute distress, well-hydrated, well nourished. Lungs: Lungs clear to auscultation. No wheezing, rhonchi, rales. Heart: RRR without murmur, gallop, or rubs. No ectopy Extremities: Wound assessment deferred due to JAYLIN boot in place. ASSESSMENT/PLAN: 1. Cellulitis and abscess of leg - ICD9: 682.6, ICD10: L03.119, L02.419 (primary diagnosis) - Continue treatment with Doxycycline 2. Right ventricular diastolic dysfunction - ICD9: 429.89, ICD10: I51.89 - BASIC METABOLIC PANEL - CONSULT TO CARDIOLOGY 3. Chronic sphenoidal sinusitis - ICD9: 473.3, ICD10: J32.3 - CONSULT TO ENT 4. Encounter for smoking cessation counseling - ICD9: V65.42, 305.1, ICD10: Z71.6 - Cessation encouraged. - Physiologic and physical aspects of tobacco addiction as well as strategies for quitting were discussed. - Counseling was given focusing on the harmful effects of this addiction especially given the patient's medical condition(s) which will be worsened because of the chemicals in tobacco. - Counseling was given 7 minutes. - Prescription for nicotrol given - NICOTROL NS 10 MG/ML NASAL SPRAY 5. Morbid obesity (HCC) - ICD9: 278.01, ICD10: E66.01 Weight decreasing - BUPROPION XL 300 MG 24 HR TAB 6. Encounter for tobacco use cessation counseling - ICD9: V65.42, ICD10: Z71.6 - BUPROPION XL 300 MG 24 HR TAB [facility] History of Present illness Narrative* Akilah Wiggins APRN.ADONIS - 02/21/2025 3:46 PM EDT Transitional Care Management TCM Eligibility Documentation Outreach completed via text messaging service. Provider Documentation Claudia Hebert is a 44 year old female here today for a follow up from recent hospitalization. I have reviewed the patient's hospital course including discharge summary, discharge medications, and follow up needs with the patient and any family members present at today's visit. HPI HOSPITAL COURSE: 44-year-old female admitted to the hospital with painful lower extremity wounds and redness suspicious for cellulitis. She was treated with IV antibiotics and early growth was positive for Staph aureus with some gram-negative bacilli in the Gram stain. Final culture results are pending. Patient expressed desire to be discharge because of which she was plan for discharge on Bactrim and Levaquin and will need wound cultures followed up. She was also seen to have volume overload and echocardiogram was suggestive of grade 3 left ventricular diastolic dysfunction with right ventricular dilatation and preserved right medical function. She was started on low-dose diuretics along with potassium supplementation and she will need outpatient follow-up with primary care physician with repeat lab work in 1 week. She will also need outpatient wound care follow-up for continued wound care. Referral and contact information was given to the patient. She was then plan for discharge home with outpatient follow-up. Patient presents today with reports of improving area to leg, currently on doxycycline. Currently receiving wound care with [facility] wound center. Jaylin boot to right leg. BP 142/77 Pulse 89 Wt (!) 147 kg (324 lb 1.2 oz) LMP 09/14/2023 (Approximate) BMI 58.51 kg/m Physical Exam PHYSICAL EXAMINATION: General appearance: Well appearing, alert, in no acute distress, well-hydrated, well nourished. Lungs: Lungs clear to auscultation. No wheezing, rhonchi, rales. Heart: RRR without murmur, gallop, or rubs. No ectopy Extremities: Wound assessment deferred due to JAYLIN boot in place. ASSESSMENT/PLAN: 1. Cellulitis and abscess of leg - ICD9: 682.6, ICD10: L03.119, L02.419 (primary diagnosis) - Continue treatment with Doxycycline 2. Right ventricular diastolic dysfunction - ICD9: 429.89, ICD10: I51.89 - BASIC METABOLIC PANEL - CONSULT TO CARDIOLOGY 3. Chronic sphenoidal sinusitis - ICD9: 473.3, ICD10: J32.3 - CONSULT TO ENT 4. Encounter for smoking cessation counseling - ICD9: V65.42, 305.1, ICD10: Z71.6 - Cessation encouraged. - Physiologic and physical aspects of tobacco addiction as well as strategies for quitting were discussed. - Counseling was given focusing on the harmful effects of this addiction especially given the patient's medical condition(s) which will be worsened because of the chemicals in tobacco. - Counseling was given 7 minutes. - Prescription for nicotrol given - NICOTROL NS 10 MG/ML NASAL SPRAY 5. Morbid obesity (HCC) - ICD9: 278.01, ICD10: E66.01 Weight decreasing - BUPROPION XL 300 MG 24 HR TAB 6. Encounter for tobacco use cessation counseling - ICD9: V65.42, ICD10: Z71.6 - BUPROPION XL 300 MG 24 HR TAB Akilah Wiggins APRN.FIRE INVESTIGATION MANAGER documented in this encounterPrem[facility]08-11-2025 History of Present illness Narrative* Claudia Gaytan RT(R) - 02/20/2025 4:30 PM EDT Radiology Service Progress Note PATIENT NAME: Claudia Hebert DATE OF SERVICE: February 20, 2025 TIME: 4:07 PM PATIENT IDENTITY VERIFICATION COMPLETED USING TWO (2) IDENTIFIERS: Name and Date of confirmedby patient verbally. FALL SCREENING: Has the patient had 2 falls in the last year or 1 fall with injury or currently using an Ambulatory Assistive Device (Walker, Cane, Wheelchair, Crutches, etc.)? Yes, Patient High Riskfor Falls What interventions were put in place to prevent falls during this visit? Instructed Patient to Callfor Help if Needed, Offered Assistance with Transfers/Clothing, Instructed Patient to Remain Seated(Not on Exam Table) Until Exam, and Increased Observations by Caregivers PATIENT GENDER DATA: Assigned female at . status: : No status:NO. PATIENT RELEVANT IMPLANT DATA REVIEWED: Yes PATIENT PRESENTS WITH AN IMPLANTABLE OR ATTACHED COMBAT SYSTEMS OPERATOR: No RADIOLOGY DEPARTMENT: MR; Exam(s) Completed: Head: Routine Brain. Aromatherapy Administered: No PERIPHERAL IV DATA: Not applicable SIGNED BY: RT Ian(R) February 20, 2025 4:07 PM documented in this encounterPremier Health [facility]08-11-2025 NoteHNO ID: [id number] Author: CLAUDIA GAYTAN RT(R) Service: ? Author Type: Technologist Type: Progress Notes Filed: 02/20/2025 16:07 Note Text: Radiology Service Progress Note PATIENT NAME: Claudia Hebert DATE OF SERVICE: February 20, 2025 TIME: 4:07 PM PATIENT IDENTITY VERIFICATION COMPLETED USING TWO (2) IDENTIFIERS: Name and Date of confirmed by patient verbally. FALL SCREENING: Has the patient had 2 falls in the last year or 1 fall with injury or currently using an Ambulatory Assistive Device (Walker, Cane, Wheelchair, Crutches, etc.)? Yes, Patient High Risk for Falls What interventions were put in place to prevent falls during this visit? Instructed Patient to Call for Help if Needed, Offered Assistance with Transfers/Clothing, Instructed Patient to Remain Seated (Not on Exam Table) Until Exam, and Increased Observations by Caregivers PATIENT GENDER DATA: Assigned female at . status: : No status: NO. PATIENT RELEVANT IMPLANT DATA REVIEWED: Yes PATIENT PRESENTS WITH AN IMPLANTABLE OR ATTACHED COMBAT SYSTEMS OPERATOR: No RADIOLOGY DEPARTMENT: MR; Exam(s) Completed: Head: Routine Brain. Aromatherapy Administered: No PERIPHERAL IV DATA: Not applicable SIGNED BY: RT Ian(R) February 20, 2025 4:07 [facility]08-09-2025 NoteHNO ID: [id number] Author: PALOMO TORRES MD Service: ? Author Type: Physician Type: Progress Notes Filed: 02/18/2025 07:36 Note Text: HISTORY AND PHYSICAL Claudia Hebert 1980 REFERRING PHYSICIAN: Akilah Wiggins APRN.* CHIEF COMPLAINT: Cellulitis (Under umbilicus) HPI: The patient is a 44 year old female with a complaint of discomfort and swelling of her pannus. The patient was recently discharged from the hospital for bilateral lower extremity cellulitis. She also complains of abdominal discomfort. She was not reviewed by us while she was in the hospital. She was referred to my office for panniculitis. CT scan of the abdomen pelvis was obtained while she was in the hospital there were no signs of internal abscesses there was felt to be subcutaneous edema and thickening of the skin consistent with chronic panniculitis. The patient is morbidly obese with a BMI of 58 has a history of COPD and continues to smoke. The patient is being seen by me today at the request of Akilah Wiggins APRN.* my opinion and advice regarding panniculitis. PAST MEDICAL HISTORY[1] PAST SURGICAL HISTORY Procedure Laterality Date APPENDECTOMY 12/27/2023 Dr. Granados CHOLECYSTECTOMY HX INSERTION OF IUD 2023 Placed at [facility] CURRENT MEDICATIONS[2] ALLERGIES: Nystatin PERSONAL HISTORY: SOCIAL HISTORY[3] FAMILY HISTORY: FAMILY HISTORY[4] REVIEW OF SYMPTOMS: The review of systems data was entered by the nurse and reviewed by me There are no exam notes on file for this visit. PHYSICAL EXAMINATION: General: The patient is 44 year old female, well nourished, well hydrated in no acute distress. The patient is oriented to time, place, and person. VITALS: Blood pressure 120/57, pulse 76, resp. rate 20, weight (!) 147.4 kg (325 lb), last menstrual period 09/14/2023, SpO2 91%. HEENT: Normal cephalic, ataumatic, pupils are equally round, sclera are anicteric, mucous membranes are moist, oropharynx is clear. Neck has no masses, asymmetry or lymphadenopathy. Thyroid is unremarkable. Respiratory: Few coarse sounds and wheezes. Normal respiratory excursion and pattern. Cardiac: Examination is regular rate and rhythm. Abdominal exam: Obese, nontender, chronic changes consistent of panniculitis from the umbilicus down to her pannus. Normoactive bowel sounds, no peritoneal signs. Rectal exam: exam deferred Extremities: no clubbing, cyanosis or edema. No adenopathy. Other: LABORATORY VALUES: As Noted RADIOLOGIC STUDIES: As Noted Assessment IMPRESSION: Chronic panniculitis PLAN: I discussed with the patient I recommend that she stop smoking and attempt weight loss. There is no signs of currently infection or deep space abscess. We discussed that panniculitis is best treated by weight loss and tobacco cessation and then with significant weight loss hopefully panniculectomy can be performed for chronic symptoms we discussed that attempting panniculectomy at this time would likely result in healing failure and complex wound issues. Diagnoses: (M79.3) Panniculitis (primary encounter diagnosis) (E66.01) Morbid obesity ([facility]) (L03.311) Abdominal wall cellulitis My findings have been communicated to Dr. Akilah Wiggins, HOME MAKER.FIRE INVESTIGATION MANAGER via shared medical record. This note will be forwarded to Dr. Akilah Wiggins APRN.FIRE INVESTIGATION MANAGER. Return to Clinic: The patient is instructed to follow-up with me as needed. 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 No date: PTSD (post-traumatic stress disorder) No date: Schizophrenia ([facility]) No date: Tobacco abuse [2] Current Outpatient Medications Medication Sig doxycycline hyclate (VIBRAMYCIN) 100 mg capsule Take 1 capsule by mouth two times a day for 7 days. miconazole 2 % powder Apply 1 application to affected area two times a day for 14 days. furosemide (LASIX) 20 mg tablet Take 1 tablet by mouth once daily. potassium chloride (K-TAB) 10 mEq tablet Take 1 tablet by mouth once daily. CAPLYTA 42 mg capsule Take 21 mg by mouth once daily. Pt. Taking 21 mg buPROPion XL (WELLBUTRIN XL) 150 mg 24 hr tablet Take 1 tablet by mouth once daily. traZODone (DESYREL) 50 mg tablet Take 1 tablet by mouth daily at bedtime. albuterol HFA (PROVENTIL HFA, VENTOLI (more content not included)...[facility]08-09-2025 History of Present illness Narrative* Palomo Torres MD - 02/18/2025 7:32 AM EDT HISTORY AND PHYSICAL Claudia Hebert 1980 REFERRING PHYSICIAN: Akilah Wiggins APRN.* CHIEF COMPLAINT: Cellulitis (Under umbilicus) HPI: The patient is a 44 year old female with a complaint of discomfort and swelling of her pannus.The patient was recently discharged from the hospital for bilateral lower extremity cellulitis. Shealso complains of abdominal discomfort. She was not reviewed by us while she was in the hospital. She was referred to my office for panniculitis. CT scan of the abdomen pelvis was obtained while she was in the hospital there were no signs of internal abscesses there was felt to be subcutaneous edema and thickening of the skin consistent with chronic panniculitis. The patient is morbidly obese with a BMI of 58 has a history of COPD and continues to smoke. The patient is being seen by me today at the request of Akilah Wiggins APRN.* my opinion and advice regarding panniculitis. PAST MEDICAL HISTORY[1] PAST SURGICAL HISTORY Procedure Laterality Date APPENDECTOMY 12/27/2023 Dr. Granados CHOLECYSTECTOMY HX INSERTION OF IUD 2023 Placed at [facility] CURRENT MEDICATIONS[2] ALLERGIES: Nystatin PERSONAL HISTORY: SOCIAL HISTORY[3] FAMILY HISTORY: FAMILY HISTORY[4] REVIEW OF SYMPTOMS: The review of systems data was entered by the nurse and reviewed by me There are no exam notes on file for this visit. PHYSICAL EXAMINATION: General: The patient is 44 year old female, well nourished, well hydrated in no acute distress. Thepatient is oriented to time, place, and person. VITALS: Blood pressure 120/57, pulse 76, resp. rate 20, weight (!) 147.4 kg (325 lb), last menstrual period 09/14/2023, SpO2 91%. HEENT: Normal cephalic, ataumatic, pupils are equally round, sclera are anicteric, mucous membranesare moist, oropharynx is clear. Neck has no masses, asymmetry or lymphadenopathy. Thyroid is unremarkable. Respiratory: Few coarse sounds and wheezes. Normal respiratory excursion and pattern. Cardiac: Examination is regular rate and rhythm. Abdominal exam: Obese, nontender, chronic changes consistent of panniculitis from the umbilicus down to her pannus. Normoactive bowel sounds, no peritoneal signs. Rectal exam: exam deferred Extremities: no clubbing, cyanosis or edema. No adenopathy. Other: LABORATORY VALUES: As Noted RADIOLOGIC STUDIES: As Noted Assessment IMPRESSION: Chronic panniculitis PLAN: I discussed with the patient I recommend that she stop smoking and attempt weight loss. Thereis no signs of currently infection or deep space abscess. We discussed that panniculitis is best treated by weight loss and tobacco cessation and then with significant weight loss hopefully panniculectomy can be performed for chronic symptoms we discussed that attempting panniculectomy at this time would likely result in healing failure and complex wound issues. Diagnoses: (M79.3) Panniculitis (primary encounter diagnosis) (E66.01) Morbid obesity ([facility]) (L03.311) Abdominal wall cellulitis My findings have been communicated to Dr. Akilah Wiggins APRN.CNP via shared medical record. Thisnote will be forwarded to Dr. Akilah Wiggins APRN.CNP. Return to Clinic: The patient is instructed to follow-up with me as needed. 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 No date: PTSD (post-traumatic stress disorder) No date: Schizophrenia ([facility]) No date: Tobacco abuse [2] Current Outpatient Medications Medication Sig doxycycline hyclate (VIBRAMYCIN) 100 mg capsule Take 1 capsule by mouth two times a day for 7 days. miconazole 2 % powder Apply 1 application to affected area two times a day for 14 days. furosemide (LASIX) 20 mg tablet Take 1 tablet by mouth once daily. potassium chloride (K-TAB) 10 mEq tablet Take 1 tablet by mouth once daily. CAPLYTA 42 mg capsule Take 21 mg by mouth once daily. Pt. Taking 21 mg buPROPion XL (WELLBUTRIN XL) 150 mg 24 hr tablet Take 1 tablet by mouth once daily. traZODone (DESYREL) 50 mg tablet Take 1 tablet by mouth daily at bedtime. albuterol HFA (PROVENTIL HFA, VENTOLIN HFA) 90 mcg/actuation inhaler Inhale 2 puffs as instructed every 4 hours as needed for wheezing/shortness of breath. propranolol (INDERAL) 10 mg tablet Take 20 mg by mouth two times a day. Taking 20-40 TID albuterol HFA (PROVENTIL HFA, VENTOLIN HFA) 90 mcg/actuation inhaler Albuterol Sulfate (Ventolin Hfa) 90 mcg/actuation HFA aerosol inhaler Active 2 NMA INHALATION EVERY 4 HOURS NEEDED as needed for Wheezing July 11, 2024 1:00am celecoxib (CELEBREX) 100 mg capsule Take 100 mg by mouth once daily. Cetirizine (ZYRTEC) 10 mg cap Take by mouth. ADVAIR DISKUS 250-50 mcg/dose inhaler Inhale 1 Puff as instructed twice daily. ipratropium-albuterol (DUONEB) 0.5 mg-3 mg(2.5 mg base)/3 mL nebu Use twice daily scheduled and every 6 hours as needed for Shortness of breath omega-3 acid ethyl esters (LOVAZA) 1 gram capsule Take 1 g by mouth once daily. pantoprazole DR (PROTONIX) 40 mg tablet Take 40 mg by mouth every morning. No current facility-administered medications for this visit. [3] Social History Tobacco Use Smoking status: Every Day Current packs/day: 1.00 Average packs/day: 1.5 packs/day for 16.1 years (23.6 ttl pk-yrs) Types: Cigarettes Start date: 01/11/2024 Passive exposure: Never Smokeless tobacco: Never Vaping Use Vaping status: Never Used Substance Use Topics Alcohol use: Yes Comment: rare Drug use: Never [4] Review of patient's family history indicates: Problem: Hypertension Relation: Mother Age of Onset: (Not Specified) Problem: COPD Relation: Mother Age of Onset: (Not Specified) Problem: Carotid Disease Relation: Mother Age of Onset: (Not Specified) Problem: Ischemic Heart Disease Relation: Mother Age of Onset: (Not Specified) Comment: stents Problem: Stomach Cancer Relation: Father Age of Onset: (Not Specified) Comment: 1994 Problem: Hypertension Relation: Maternal Grandmother Age of Onset: (Not Specified) Problem: Stomach Cancer Relation: Maternal Grandmother Age of Onset: (Not Specified) Comment: 80's Problem: Arthritis Relation: Maternal Grandmother Age of Onset: (Not Specified) Problem: Dementia Relation: Maternal Grandmother Age of Onset: (Not Specified) Problem: Leukemia Relation: Maternal Grandfather Age of Onset: (Not Specified) Problem: Cancer Relation: Paternal Grandfather Age of Onset: (Not Specified) Problem: No Ocular Disease Relation: No Family History Age of Onset: (Not Specified) * Maria Isabel Goodwin RN - 02/16/2025 3:50 PM EDT REVIEW OF SYSTEMS: General: The patient denies fatigue, denies weight loss, denies weight gain, notes feeling hot, andnotes feelings of cold. Eyes: The patient denies glaucoma, denies eye injury/surgery, wears glasses or contacts. Ear/Nose/Throat: The patient notes allergies, denies hayfever, denies ear infections, and denies bloody noses. Cardiovascular: The patient denies chest pain, denies heart disease, denies high blood pressure,denies cardiac stent, denies prior heart attack, denies irregular heart beat, notes high cholesterol, notes poor circulation, denies heart failure, other cardiac issues, denies claudication, notes cold feet, denies peripheral arterial stent. Respiratory: The patient denies tuberculosis, notes pneumonia, notes frequent cough, denies pulmonary embolism, notes shortness of breath, and denies coughing up blood. Gastrointestinal: The patient denies difficulty swallowing, notes acid reflux, notes ulcers, deniesvomiting, denies jaundice/hepatitis, denies gallbladder problems, denies black or tarry stools, denies hemorrhoids, denies bleeding from rectum, denies diverticulitis, denies constipation, denies diarrhea, denies loss of stool control, and denies hernias. Kidney/Bladder: The patient denies kidney stones, denies urine infections, and denies bloody urine. Skin: The patient denies a history of skin cancer, denies bleeding/changing moles, and denies a history of skin rash. Neurologic: The patient denies a history of epilepsy/convulsions, denies headaches, notes head/spinal injuries, and denies stroke/TIA. Psychiatric: The patient notes psychiatric medications, notes depression, and denies voices, deniessubstance abuse. Endocrine: The patient denies thyroid disorders, denies diabetes, and denies hormonal problems. Hematologic: The patient denies a history of bruising, denies bleeding, and denies anemia, denies blood clots. Infections: The patient denies a history of measles and mumps, denies rheumatic fever, and denies sexually transmitted diseases. Musculoskeletal: The patient notes back pain/injury, denies back problems, denies sciatica, denies knee/foot trouble, notes arthritis, or denies gout. When was patient's last Mammogram screening? 2023 Last Colonoscopy: N/A Maria Isabel Goodwin RN [facility]* Result Encounter Note - GIULIA STANFORD - 02/17/2025 9:00 AM EDT Message notifying patient via [employer]. Provided number for her to schedule with Pulmonology. Giulia Stanford LPN [facility]08-07-2025 NoteHNO ID: [id number] Author: MARIA ISABEL GOODWIN RN Service: ? Author Type: Registered Nurse Type: Progress Notes Filed: 02/18/2025 07:36 Note Text: REVIEW OF SYSTEMS: General: The patient denies fatigue, denies weight loss, denies weight gain, notes feeling hot, and notes feelings of cold. Eyes: The patient denies glaucoma, denies eye injury/surgery, wears glasses or contacts. Ear/Nose/Throat: The patient notes allergies, denies hayfever, denies ear infections, and denies bloody noses. Cardiovascular: The patient denies chest pain, denies heart disease, denies high blood pressure,denies cardiac stent, denies prior heart attack, denies irregular heart beat, notes high cholesterol, notes poor circulation, denies heart failure, other cardiac issues, denies claudication, notes cold feet, denies peripheral arterial stent. Respiratory: The patient denies tuberculosis, notes pneumonia, notes frequent cough, denies pulmonary embolism, notes shortness of breath, and denies coughing up blood. Gastrointestinal: The patient denies difficulty swallowing, notes acid reflux, notes ulcers, denies vomiting, denies jaundice/hepatitis, denies gallbladder problems, denies black or tarry stools, denies hemorrhoids, denies bleeding from rectum, denies diverticulitis, denies constipation, denies diarrhea, denies loss of stool control, and denies hernias. Kidney/Bladder: The patient denies kidney stones, denies urine infections, and denies bloody urine. Skin: The patient denies a history of skin cancer, denies bleeding/changing moles, and denies a history of skin rash. Neurologic: The patient denies a history of epilepsy/convulsions, denies headaches, notes head/spinal injuries, and denies stroke/TIA. Psychiatric: The patient notes psychiatric medications, notes depression, and denies voices, denies substance abuse. Endocrine: The patient denies thyroid disorders, denies diabetes, and denies hormonal problems. Hematologic: The patient denies a history of bruising, denies bleeding, and denies anemia, denies blood clots. Infections: The patient denies a history of measles and mumps, denies rheumatic fever, and denies sexually transmitted diseases. Musculoskeletal: The patient notes back pain/injury, denies back problems, denies sciatica, denies knee/foot trouble, notes arthritis, or denies gout. When was patient's last Mammogram screening? 2023 Last Colonoscopy: N/A [facility] Telephone encounter Note * Telephone Encounter - Akilah Wiggins APRN.FIRE INVESTIGATION MANAGER - 02/16/2025 3:32 PM EDT Please let patient know her lung tests show restrictive airway disease. Recommend follow up with pulmonology. [facility]08-06-[facility]25 History and physical note Author Russ Mancuso [facility] Note Date/Time February 15, 2025 1:0 9pm [facility] [address] [place] [address] H&P Exam - Wound Care 02/15/25 1231 MR#: [id number] Acct: [id number] Name: CLAUDIA HEBERT Rep #:[id number] : 1980 44 From: Russ Ramirez PCP: Akilah Wiggins FAMILY AND DIVORCE LEGAL ASSISTANT-C Status:REG RCR Location: History of Present Illness Date of Service: 02/14/25 Chief Complaint: Traumatic wound of the right lower extremity History of Wound: This is a morbidly obese 44-year-old diabetic female who presented with a wound on her right pretibial surface. According to patient, the wound began in November 2024 as result of trauma when she fell down a flight of stairs. Since the time of her initial injury, the patient has been evaluated and treated in various medical facilities, including the [facility] Emergency Department in the [facility] at [facility]. She was seen at the [facility] ER on January 02, 2025, at which time she was treated with a prescription for cephalexin 500 mg p.o. every 6 hours for 10 days. More recently, the patient was evaluated in the [facility] at [facility] on February 07, at which time she was briefly admitted and subsequently discharged with prescriptions for oral Bactrim and Levaquin, which continue to this date. According to the patient, a prior wound culture was positive for Staph aureus. She also indicates that hemoglobin A1c was obtained on January 24, 2025, which was 5.9. She denies that she is diabetic. She also denies a history of myocardial infarction, congestive heart failure, cerebrovascular accident, renal disease, thyroid disease, and hypertension. Sheis known to be a smoker, and suffers from COPD and asthma. She also has obstructive sleep apnea, for which she uses CPAP. She is morbidly obese, with aBMI of 62.5. The patient admits to sleeping in a recliner. She is not active, and sits in idle fashion throughout most of each day. She denies a history of lower extremity thrombophlebitis. [facility] Medical History (Updated 02/15/25 @ 13:[address] Russ Mancuso MD) Dependent edema Obstructive sleep apnea on CPAP Morbid obesity with BMI of 60.0-69.9, adult Non-pressure ulcer of right lower extremity with fat layer exposed Wound of right lower extremity Asthma Tobacco abuse counseling Tobacco abuse Schizophrenia ADHD Hyperlipidemia GERD (gastroesophageal reflux disease) Toxoplasmosis chorioretinitis COPD (chronic obstructive pulmonary disease) Asthma Home Medications ?Medication ?Instructions ?Recorded ?Last Taken ?Type albuterol sulfate 90 mcg/actuation 2 puff inhalation Q 4H PRN PRN 07/11/24 Unknown Rx aerosol inhaler (Ventolin HFA) Wheezing ##1 celecoxib 100 mg capsule 100 mg PO DAILY 01/02/25 Unk nown History cetirizine 10 mg tablet 10 mg PO DAILY 01/02/25 Unkn own History pantoprazole 40 mg tablet,delayed 40 mg PO DAILY 01/02 Unknown History release risperidone 0.5 mg tablet 0.5 mg PO QHS 01/02/25 Unkno wn History trazodone 50 mg tablet 100 mg PO QHS 01/02/25 Unkno wn History atorvastatin 10 mg tablet (Lipitor) 10 mg PO DAILY 12/04 Unknown History bupropion HCl 150 mg 24 hr tablet, 150 mg PO DAILY 12/04 Unknown History extended release (Wellbutrin XL) fluconazole 150 mg tablet 150 mg PO QWEEK 02/14/25 Unk nown History fluticasone 250 mcg-salmeterol 50 1 inh inhalation BID 02/14/25 Unknown History mcg/dose blistr powdr for inhalation (Advair Diskus) ipratropium 0.5 mg-albuterol 3 mg ml 02/14/25 Unknown History (2.5 mg base)/3 mL nebulization soln lumateperone 21 mg capsule 21 mg PO DAILY 02/14/25 Unk nown History (Caplyta) omega-3 acid ethyl esters 1 gram cap PO 02/14/25 Unkno wn History capsule propranolol 20 mg tablet 20 mg PO BID 02/14/25 Unknow n History Allergy/AdvReac Type Severity Reaction Status Date / Time nystatin Allergy Intermediate Rash Verified 02/14/25 14:21 Surgical History Hx of cholecystectomy Hx of appendectomy Social History household members: friend(s) Smoking Status: Current every day smoker tobacco type: cigarettes Vital Signs Vital Signs Vital Signs: 02/14/25 14:00 Temperature 97.6 F L Temperature Source Temporal Pulse Rate 86 Respiratory Rate 18 Blood Pressure 187/61 H Blood Pressure Mean 103 Blood Pressure Source Monitor Blood Pressure Position Semi-Fowlers Blood Pressure Location Right Arm Weight Weight: 320 lb Body Mass Index (BMI) 62.4 Physical Exam Const alert, oriented x3, no apparent distress, no limitations and well nourished Constitutional Narrative: The patient is morbidly obese. Her BMI is 62.5. General Appearance: cooperative, comfortable and well developed Orientation / Consciousness: awake, oriented to person, oriented to place and oriented to time Exam Limitations: no limitations Nutritional Appearance: overweight HEENT normocephalic and head/scalp atraumatic Head and Scalp: normal to inspection, normocephalic and atraumatic Face and Sinus: normal facial exam Nose: external nose normal External Ear: external ears normal Eyes EOMs intact bilaterally General Eye: normal appearance of both eyes Neck full ROM Resp normal respiratory effort, normal air movement, no retractions and no use of accessory muscles Effort and Inspection: able to speak in complete sentences Extremity no calf tenderness General Extremity: Negative for clubbing or cyanosis Skin Wound Narrative: A wound is noted on the right pretibial surface. It appears to be full- thickness, extending through all layers of the dermis and into the subcutaneous tissues. Wound margins appear to be well beveled. Dimensions are documented elsewhere. There is a moderate amount of slough, bioburden, and nonviable tissue. Mild surrounding erythema is noted. There are some scattered superficial eschars and excoriation in the distal right lower extremity, with mild dermatitic changes. Visually, there is mild swelling, with 1+ pitting edema. Neuro oriented x3, CN's II-XII intact bilaterally, moves all extremities, no focal motor deficits and no sensory deficits noted Sensorium / Orientation: awake, alert, oriented to person, oriented to place andoriented to time Speech: speech normal Psych Appearance: grossly normal and appropriate Attitude: calm Activity / Motor Behavior: appropriate eye contact Speech: normal speech Mood & Affect: euthymic mood Thought Process: normal thought process Thought Content: normal thought content Attention / Concentration: attention grossly intact Debridement Note Debridement Note Wound debrided: Right pretibial surface Laterality: Right Type of Debridement: Excisional debridement Anesthesia Used: 5% Lidocaine Gel and Cetacaine Depth: Down to and including healthy tissue and in the subcutaneous layer Percentage of wound debrided: 100 Instrument Used: 5mm curette Tissue Removed: Bioburden, slough, and nonviable tissue Severity: Fat Layer Exposed Amount of bleeding with debridement: Mild Bleeding Controlled with: Compression and gauze Patient tolerated procedure: Patient tolerated procedure well Post-Debridement Measurements and Additional Note: Post-Debridement Measurements/Treatment - Nurse 1 - General Ulcer Assessment Start: 02/14/25 14:00 Freq: Status: Active Protocol: PAOLO Activity Type Activity Date Activity User E-sign Co-sign Detail Recorded Client Recorded Date Recorded By Document 02/14/25 14:00 [id number] 02/14/25 14:17 02/14/25 14:00 - Today's Visit Information Type of service Initial Visit Arrival Mode Ambulatory Accompanied by friend Patient Identification Verified (Name & Yes ) Patient Requires Transmission-Based No Precautions Height and Weight Height 5 ft Weight 320 lb Weight in Pounds 320.0 lbs Weight Measurement Method Estimated by Patient Body Mass Index (BMI) 62.4 BMI Classification Obese Vital Signs Temperature (97.8 F-99.1 F) 97.6 F L Temperature Source Temporal Pulse Rate (60-100) 86 Pulse Location Monitor Respiratory Rate (12-18) 18 Respiratory rate source Observation Blood Pressure (90/60-120/80) 187/61 H Blood Pressure Mean 103 Source Monitor Position Semi-Fowlers Blood Pressure Location Right Arm History Since Last Visit- (Skip if this is Patient's initial visit) Left Footwear Regular Shoe Right Footwear Regular Shoe Pain Scale: 0-10 Numeric Is Patient Pain Free? Yes Lower Extremity Assessment/ Foot Assessment/ Toe Nail Assessment Right -Posterior Tibial Palpable Yes -Dorsalis Pedis Palpable Yes -Extremity Color Hyperpigmented -Hair Growth on Legs Yes -Hair Growth on Toes Yes -Temperature of Extremity Warm -Capillary Refill Less than 3 Seconds -Prior Foot Ulcer No -Thick Yes -Discolored Yes -Deformed No -Improper Length & Hygeine No Communication Assessment Preferred language Angolan Able to Read Yes Able to Write Yes Communication Tools None Right Hearing Abillity Normal Left Hearing Abillity Normal Visual Assistive Devices Glasses Teaching Assessment Preferences Verbal,Written, Audio/Visual, Demonstration Barriers to Learning None Readiness To Learn Good Willingness to Engage in Self Management Med Activies Readiness to Engage in Self Management Med Activities Anxiety Level Anxious Cooperation Cooperative Perception Coherent Interest in Health Problem Asks Questions Education Importance Acknowledges Need Does Patient Smoke tobacco or other Yes substances Smoking Status Current every day smoker Is Patient Diabetic No Functional Assessment Recent Decline in Ability to Perform Denies Any Declines Culture/Temple/Doll Surgeon Cultural/Temple Needs that may affect No Treatment Plan Would you allow our hospital laborer golf course to No meet you for the purpose of spiritual/ emotional support? Doll Surgeon to contact [facility] No Teaching: Wound Center [facility] Orientation/ Contacting Physician -Person Taught Patient,Family -Teaching Method Discussion, Demonstration -Response to teaching Return Demonstration, Verbalize Understanding [facility] Nurse 1 - General Ulcer Measurement Start: 02/14/25 14:00 Freq: Status: Active Protocol: Activity Type Activity Date Activity User E-sign Co-sign Detail Recorded Client Recorded Date Recorded By Document 02/14/25 14:00 [id number] 02/14/25 14:17 02/14/25 14:00 Wound Center Nurse 1 1-right de souza -Combined with other wound No -Current Size (cm) - Length 5 -Current Size (cm) - Width 2.6 -Current Size (cm) - Depth 0.1 -Total Square Cm 13.0 -Photo Taken Yes -Epithelialization Small 1-33% -Tunneling No -Undermining/Tunneling No -Circular Undermining No -Exudate Amt Small -Exudate Type Serosanguineous -Wound Margin Flat & Intact -Granulation Amt Medium (34-66%) -Granulation Quality Pale -Slough/Fibrin Yes -Necrosis Amt Large (67-100%) -Necrotic Tissue Type Adherent Slough -Structure Exposed N/A -Texture (Brandy-wound Skin Appearance) Assessed, Localized Edema -Moisture (Brandy-wound Skin Appearance) No Abnormality, Dry/Scaly -Color (Brandy-wound Skin Appearance) Assessed -Temperature (Brandy-wound Skin No Abnormality Appearance) (Pt Warm) -Tenderness on Palpation (Brandy-wound No Skin Appearance) -Ulcer Cleansing Soap and Water -Foul Odor after Cleansing No -Anesthetic Used 5% Lidocaine Gel Lower Limb Edema Present Yes Right Calf (cm) 44 Right Ankle (cm) 20.8 WC - Nurse 2 - General Ulcer CM Notes Start: 02/14/25 14:00 Freq: Status: Active Protocol: Activity Type Activity Date Activity User E-sign Co-sign Detail Recorded Client Recorded Date Recorded By Document 02/14/25 14:45 DS [id number] 02/14/25 14:48 DS 02/14/25 14:45 Wound Center Nurse 2 1-right de souza -Time 14:45 -Correct Patient Yes -Correct Side, Site, Position Yes -Correct Procedure Yes -Procedure Performed Yes -Type of Procedure Debridement -Clinical Debridement Subcutaneous -Tissue Removed Subcutaneous -Post Debridement (cm) - Length 3.8 -Post Debridement (cm) - Width 3.0 -Post Debridement (cm) - Depth 0.1 -Total Square (Post) (cm) 11.40 -Area of Debridement (cm) - Length 3.8 -Area of Debridement (cm) - Width 3.0 -Total Square (Area) (cm) 11.40 -Tunneling No -Undermining/Tunneling No -Circular Undermining No -Wound/Ulcer Outcome Not Healed -Foul Odor after Cleansing No -Bioengineered Tissue No -Bleeding Controlled with Pressure -Treatment Response Procedure Tolerated Well -Debridement - Subq, 1st 20sq cm Yes Pain Scale: 0-10 Numeric Is Patient Pain Free? Yes - Nurse 3 - General Ulcer D/C NN Start: 02/14/25 14:00 Freq: Status: Active Protocol: Activity Type Activity Date Activity User E-sign Co-sign Detail Recorded Client Recorded Date Recorded By Document 02/14/25 16:02 KW [id number] 02/14/25 16:03 KW 02/14/25 16:02 W[facility] Care Center Nurse 3 RLE -Multi-Layered Wrap Application Unna Boot - Right -Unna- Right (Qty applied) 1 Pain Scale: 0-10 Numeric Is Patient Pain Free? Yes WC - Visit Discharge Discharge Condition Stable Ambulatory Status Ambulatory Transportation Private Auto Medication Reconcilliation completed & No provided to patient/care provider Clinical Summary of Care Provided Yes Charges/Coding Multi Select Codes Visit Charges Office Visit/Consults: 76008 OV L4 New 45 min Integumentary Integumentary CPT Codes: 95574 Therese subq tissue 20 sq cm/< Assessment/Plan Assessment/Plan (1) Non-pressure ulcer of right lower extremity with fat layer exposed: CODE(S): L97.912 - Non-pressure chronic ulcer of unspecified part of rightlower leg with fat layer exposed (2) Wound of right lower extremity: CODE(S): S81.801A - Unspecified open wound, right lower leg, initial encounter (3) Dependent edema: CODE(S): R60.9 - Edema, unspecified (4) Asthma: CODE(S): J45.909 - Unspecified asthma, uncomplicated (5) COPD (chronic obstructive pulmonary disease): CODE(S): J44.9 - Chronic obstructive pulmonary disease, unspecified (6) Tobacco abuse: CODE(S): Z72.0 - Tobacco use (7) Tobacco abuse counseling: CODE(S): Z71.6 - Tobacco abuse counseling (8) Morbid obesity with BMI of 60.0-69.9, adult: CODE(S): E66.01 - Morbid (severe) obesity due to excess calories; Z68.44 -Body mass index [BMI] 60.0-69.9, adult (9) Hx of cholecystectomy: CODE(S): Z90.49 - Acquired absence of other specified parts of digestive tract (10) Hx of appendectomy: CODE(S): Z90.49 - Acquired absence of other specified parts of digestive tract (11) GERD (gastroesophageal reflux disease): CODE(S): K21.9 - Gastro-esophageal reflux disease without esophagitis (12) Hyperlipidemia: CODE(S): E78.5 - Hyperlipidemia, unspecified (13) ADHD: CODE(S): F90.9 - Attention-deficit hyperactivity disorder, unspecified type (14) Schizophrenia: CODE(S): F20.9 - Schizophrenia, unspecified (15) Asthma: CODE(S): J45.909 - Unspecified asthma, uncomplicated (16) Obstructive sleep apnea on CPAP: CODE(S): G47.33 - Obstructive sleep apnea (adult) (pediatric) PLAN: Plan This is a morbidly obese diabetic female with multiple pre-existing medical problems. The patient presented with a traumatic wound on the right pretibial surface, the origin of which was due to trauma in November 2024. According to the patient, the prior culture was positive for Staph aureus, and the patient continues to take Bactrim and Levaquin orally. She has been encouraged to complete the course of antibiotics. The patient has been counseled to discontinue her smoking habit. Optimizing her nutritional intake and glycemic control has also been encouraged. Because of the patient's morbid obesity and diabetes mellitus, we are to request a dietary consultation to be provided on an outpatient basis. The appropriate conservative measures relative to the management of chronic swelling and edema in the lower extremities have been discussed with the patient in detail. The patient has been encouraged to elevate her lower extremities is much as possible. Elevation is to be during both daytime and nighttime hours. Elevation is to be to heart level, or higher. Prolonged idle sitting has been discouraged. Activity has been encouraged. An Unna compression wrap has been applied, and will remain in place with changes anticipated twice weekly. The patient is to return in 1 week for reevaluation. Total time: 48 minutes 02/15/25 1309 <Electronically signed by Russ Mancuso MD> Cosigner Signature (if applicable): CC: ~ Signed [facility] Work Phone: [phone] History and physical note [facility] [address] [place] [id number] H&P Exam - Wound Care 02/15/25 1231 MR#: [id number] Acct: [id number] Name: CLAUDIA HEBERT Rep #:[id number] : 1980 44 From: Russ Ramirez PCP: Akilah Wiggins NP-C Status:REG RCR Location: History of Present Illness Date of Service: 02/14/25 Chief Complaint: Traumatic wound of the right lower extremity History of Wound: This is a morbidly obese 44-year-old diabetic female who presented with a wound on her right pretibial surface. According to patient, the wound began in November 2024 as result of traumawhen she fell down a flight of stairs. Since the time of her initial injury, the patient has been evaluated and treated in various medical facilities, including the [facility] Emergency Department in the Emergency Department at the [facility]. She was seen at the [facility] ER on January 02, 2025, at which time she was treated with a prescription for cephalexin 500 mg p.o. every 6 hours for 10 days. More recently, the patient was evaluated in the Emergency Department at the [facility] on February 07, at which time she was briefly admitted and subsequently discharged with prescriptions for oral Bactrim and Levaquin, which continue to this date. According to the patient, a prior wound culture was positive for Staph aureus. She also indicates that hemoglobin A1c was obtained on January 24, 2025, which was 5.9. She denies that she is diabetic. She also denie s a history of myocardial infarction, congestive heart failure, cerebrovascular accident, renal disease, thyroid disease, and hypertension. Sheis known to be a smoker, and suffers from COPD and asthma. She also has obstructive sleep apnea, for which she uses CPAP. She is morbidly obese, with aBMI of 62.5. The patient admits to sleeping in a recliner. She is not active, and sits in idle fashion throughout most of each day. She denies a history of lower extremity thrombophlebitis. [facility] Medical History (Updated 02/15/25 @ 13:[address] Russ Mancuso MD) Dependent edema Obstructive sleep apnea on CPAP Morbid obesity with BMI of 60.0-69.9, adult Non-pressure ulcer of right lower extremity with fat layer exposed Wound of right lower extremity Asthma Tobacco abuse counseling Tobacco abuse Schizophrenia ADHD Hyperlipidemia GERD (gastroesophageal reflux disease) Toxoplasmosis chorioretinitis COPD (chronic obstructive pulmonary disease) Asthma Home Medications ?Medication ?Instructions ?Recorded ?Last Taken ?Type albuterol sulfate 90 mcg/actuation 2 puff inhalation Q 4H PRN PRN 07/11/24 Unknown Rx aerosol inhaler (Ventolin HFA) Wheezing ##1 celecoxib 100 mg capsule 100 mg PO DAILY 01/02/25 Unk nown History cetirizine 10 mg tablet 10 mg PO DAILY 01/02/25 Unkn own History pantoprazole 40 mg tablet,delayed 40 mg PO DAILY 01/02 Unknown History release risperidone 0.5 mg tablet 0.5 mg PO QHS 01/02/25 Unkno wn History trazodone 50 mg tablet 100 mg PO QHS 01/02/25 Unkno wn History atorvastatin 10 mg tablet (Lipitor) 10 mg PO DAILY 12/04 Unknown History bupropion HCl 150 mg 24 hr tablet, 150 mg PO DAILY 12/04 Unknown History extended release (Wellbutrin XL) fluconazole 150 mg tablet 150 mg PO QWEEK 02/14/25 Unk nown History fluticasone 250 mcg-salmeterol 50 1 inh inhalation BID 02/14/25 Unknown History mcg/dose blistr powdr for inhalation (Advair Diskus) ipratropium 0.5 mg-albuterol 3 mg ml 02/14/25 Unknown History (2.5 mg base)/3 mL nebulization soln lumateperone 21 mg capsule 21 mg PO DAILY 02/14/25 Unk nown History (Caplyta) omega-3 acid ethyl esters 1 gram cap PO 02/14/25 Unkno wn History capsule propranolol 20 mg tablet 20 mg PO BID 02/14/25 Unknow n History Allergy/AdvReac Type Severity Reaction Status Date / Time nystatin Allergy Intermediate Rash Verified 02/14/25 14:21 Surgical History Hx of cholecystectomy Hx of appendectomy Social History household members: friend(s) Smoking Status: Current every day smoker tobacco type: cigarettes Vital Signs Vital Signs Vital Signs: 02/14/25 14:00 Temperature 97.6 F L Temperature Source Temporal Pulse Rate 86 Respiratory Rate 18 Blood Pressure 187/61 H Blood Pressure Mean 103 Blood Pressure Source Monitor Blood Pressure Position Semi-Fowlers Blood Pressure Location Right Arm Weight Weight: 320 lb Body Mass Index (BMI) 62.4 Physical Exam Const alert, oriented x3, no apparent distress, no limitations and well nourished Constitutional Narrative: The patient is morbidly obese. Her BMI is 62.5. General Appearance: cooperative, comfortable and well developed Orientation / Consciousness: awake, oriented to person, oriented to place and oriented to time Exam Limitations: no limitations Nutritional Appearance: overweight HEENT normocephalic and head/scalp atraumatic Head and Scalp: normal to inspection, normocephalic and atraumatic Face and Sinus: normal facial exam Nose: external nose normal External Ear: external ears normal Eyes EOMs intact bilaterally General Eye: normal appearance of both eyes Neck full ROM Resp normal respiratory effort, normal air movement, no retractions and no use of accessory muscles Effort and Inspection: able to speak in complete sentences Extremity no calf tenderness General Extremity: Negative for clubbing or cyanosis Skin Wound Narrative: A wound is noted on the right pretibial surface. It appears to be full- thickness, extending throughall layers of the dermis and into the subcutaneous tissues. Wound margins appear to be well beveled. Dimensions are documented elsewhere. There is a moderate amount of slough, bioburden, and nonviable tissue. Mild surrounding erythema is noted. There are some scattered superficial eschars and excoriation in the distal right lower extremity, with mild dermatitic changes. Visually, there is mild swelling, with 1+ pitting edema. Neuro oriented x3, CN's II-XII intact bilaterally, moves all extremities, no focal motor deficits and no sensory deficits noted Sensorium / Orientation: awake, alert, oriented to person, oriented to place andoriented to time Speech: speech normal Psych Appearance: grossly normal and appropriate Attitude: calm Activity / Motor Behavior: appropriate eye contact Speech: normal speech Mood & Affect: euthymic mood Thought Process: normal thought process Thought Content: normal thought content Attention / Concentration: attention grossly intact Debridement Note Debridement Note Wound debrided: Right pretibial surface Laterality: Right Type of Debridement: Excisional debridement Anesthesia Used: 5% Lidocaine Gel and Cetacaine Depth: Down to and including healthy tissue and in the subcutaneous layer Percentage of wound debrided: 100 Instrument Used: 5mm curette Tissue Removed: Bioburden, slough, and nonviable tissue Severity: Fat Layer Exposed Amount of bleeding with debridement: Mild Bleeding Controlled with: Compression and gauze Patient tolerated procedure: Patient tolerated procedure well Post-Debridement Measurements and Additional Note: Post-Debridement Measurements/Treatment - Nurse 1 - General Ulcer Assessment Start: 02/14/25 14:00 Freq: Status: Active Protocol: PAOLO Activity Type Activity Date Activity User E-sign Co-sign Detail Recorded Client Recorded Date Recorded By Document 02/14/25 14:00 AURELIO [id number] 02/14/25 14:17 AURELIO 02/14/25 14:00 - Today's Visit Information Type of service Initial Visit Arrival Mode Ambulatory Accompanied by friend Patient Identification Verified (Name & Yes ) Patient Requires Transmission-Based No Precautions Height and Weight Height 5 ft Weight 320 lb Weight in Pounds 320.0 lbs Weight Measurement Method Estimated by Patient Body Mass Index (BMI) 62.4 BMI Classification Obese Vital Signs Temperature (97.8 F-99.1 F) 97.6 F L Temperature Source Temporal Pulse Rate (60-100) 86 Pulse Location Monitor Respiratory Rate (12-18) 18 Respiratory rate source Observation Blood Pressure (90/60-120/80) 187/61 H Blood Pressure Mean 103 Source Monitor Position Semi-Fowlers Blood Pressure Location Right Arm History Since Last Visit- (Skip if this is Patient's initial visit) Left Footwear Regular Shoe Right Footwear Regular Shoe Pain Scale: 0-10 Numeric Is Patient Pain Free? Yes Lower Extremity Assessment/ Foot Assessment/ Toe Nail Assessment Right -Posterior Tibial Palpable Yes -Dorsalis Pedis Palpable Yes -Extremity Color Hyperpigmented -Hair Growth on Legs Yes -Hair Growth on Toes Yes -Temperature of Extremity Warm -Capillary Refill Less than 3 Seconds -Prior Foot Ulcer No -Thick Yes -Discolored Yes -Deformed No -Improper Length & Hygeine No Communication Assessment Preferred language Angolan Able to Read Yes Able to Write Yes Communication Tools None Right Hearing Abillity Normal Left Hearing Abillity Normal Visual Assistive Devices Glasses Teaching Assessment Preferences Verbal,Written, Audio/Visual, Demonstration Barriers to Learning None Readiness To Learn Good Willingness to Engage in Self Management Med Activies Readiness to Engage in Self Management Med Activities Anxiety Level Anxious Cooperation Cooperative Perception Coherent Interest in Health Problem Asks Questions Education Importance Acknowledges Need Does Patient Smoke tobacco or other Yes substances Smoking Status Current every day smoker Is Patient Diabetic No Functional Assessment Recent Decline in Ability to Perform Denies Any Declines Culture/Temple/Doll Surgeon Cultural/Temple Needs that may affect No Treatment Plan Would you allow our hospital laborer golf course to No meet you for the purpose of spiritual/ emotional support? Doll Surgeon to contact [facility] No Teaching: Wound Center [facility] Orientation/ Contacting Physician -Person Taught Patient,Family -Teaching Method Discussion, Demonstration -Response to teaching Return Demonstration, Verbalize Understanding - Nurse 1 - General Ulcer Measurement Start: 02/14/25 14:00 Freq: Status: Active Protocol: Activity Type Activity Date Activity User E-sign Co-sign Detail Recorded Client Recorded Date Recorded By Document 02/14/25 14:00 AURELIO [id number] 02/14/25 14:17 AURELIO 02/14/25 14:00 Wound Center Nurse 1 1-right de souza -Combined with other wound No -Current Size (cm) - Length 5 -Current Size (cm) - Width 2.6 -Current Size (cm) - Depth 0.1 -Total Square Cm 13.0 -Photo Taken Yes -Epithelialization Small 1-33% -Tunneling No -Undermining/Tunneling No -Circular Undermining No -Exudate Amt Small -Exudate Type Serosanguineous -Wound Margin Flat & Intact -Granulation Amt Medium (34-66%) -Granulation Quality Pale -Slough/Fibrin Yes -Necrosis Amt Large (67-100%) -Necrotic Tissue Type Adherent Slough -Structure Exposed N/A -Texture (Brandy-wound Skin Appearance) Assessed, Localized Edema -Moisture (Brandy-wound Skin Appearance) No Abnormality, Dry/Scaly -Color (Brandy-wound Skin Appearance) Assessed -Temperature (Brandy-wound Skin No Abnormality Appearance) (Pt Warm) -Tenderness on Palpation (Brandy-wound No Skin Appearance) -Ulcer Cleansing Soap and Water -Foul Odor after Cleansing No -Anesthetic Used 5% Lidocaine Gel Lower Limb Edema Present Yes Right Calf (cm) 44 Right Ankle (cm) 20.8 WC - Nurse 2 - General Ulcer CM Notes Start: 02/14/25 14:00 Freq: Status: Active Protocol: Activity Type Activity Date Activity User E-sign Co-sign Detail Recorded Client Recorded Date Recorded By Document 02/14/25 14:45 DS [id number] 02/14/25 14:48 DS 02/14/25 14:45 Wound Center Nurse 2 1-right de souza -Time 14:45 -Correct Patient Yes -Correct Side, Site, Position Yes -Correct Procedure Yes -Procedure Performed Yes -Type of Procedure Debridement -Clinical Debridement Subcutaneous -Tissue Removed Subcutaneous -Post Debridement (cm) - Length 3.8 -Post Debridement (cm) - Width 3.0 -Post Debridement (cm) - Depth 0.1 -Total Square (Post) (cm) 11.40 -Area of Debridement (cm) - Length 3.8 -Area of Debridement (cm) - Width 3.0 -Total Square (Area) (cm) 11.40 -Tunneling No -Undermining/Tunneling No -Circular Undermining No -Wound/Ulcer Outcome Not Healed -Foul Odor after Cleansing No -Bioengineered Tissue No -Bleeding Controlled with Pressure -Treatment Response Procedure Tolerated Well -Debridement - Subq, 1st 20sq cm Yes Pain Scale: 0-10 Numeric Is Patient Pain Free? Yes WC - Nurse 3 - General Ulcer D/C NN Start: 02/14/25 14:00 Freq: Status: Active Protocol: Activity Type Activity Date Activity User E-sign Co-sign Detail Recorded Client Recorded Date Recorded By Document 02/14/25 16:02 KW [id number] 02/14/25 16:03 KW 02/14/25 16:02 Wound Care Center Nurse 3 RLE -Multi-Layered Wrap Application Unna Boot - Right -Unna- Right (Qty applied) 1 Pain Scale: 0-10 Numeric Is Patient Pain Free? Yes WC - Visit Discharge Discharge Condition Stable Ambulatory Status Ambulatory Transportation Private Auto Medication Reconcilliation completed & No provided to patient/care provider Clinical Summary of Care Provided Yes Charges/Coding Multi Select Codes Visit Charges Office Visit/Consults: 26077 OV L4 New 45 min Integumentary Integumentary CPT Codes: 92484 Therese subq tissue 20 sq cm/< Assessment/Plan Assessment/Plan (1) Non-pressure ulcer of right lower extremity with fat layer exposed: CODE(S): L97.912 - Non-pressure chronic ulcer of unspecified part of rightlower leg with fat layer exposed (2) Wound of right lower extremity: CODE(S): S81.801A - Unspecified open wound, right lower leg, initial encounter (3) Dependent edema: CODE(S): R60.9 - Edema, unspecified (4) Asthma: CODE(S): J45.909 - Unspecified asthma, uncomplicated (5) COPD (chronic obstructive pulmonary disease): CODE(S): J44.9 - Chronic obstructive pulmonary disease, unspecified (6) Tobacco abuse: CODE(S): Z72.0 - Tobacco use (7) Tobacco abuse counseling: CODE(S): Z71.6 - Tobacco abuse counseling (8) Morbid obesity with BMI of 60.0-69.9, adult: CODE(S): E66.01 - Morbid (severe) obesity due to excess calories; Z68.44 -Body mass index [BMI] 60.0-69.9, adult (9) Hx of cholecystectomy: CODE(S): Z90.49 - Acquired absence of other specified parts of digestive tract (10) Hx of appendectomy: CODE(S): Z90.49 - Acquired absence of other specified parts of digestive tract (11) GERD (gastroesophageal reflux disease): CODE(S): K21.9 - Gastro-esophageal reflux disease without esophagitis (12) Hyperlipidemia: CODE(S): E78.5 - Hyperlipidemia, unspecified (13) ADHD: CODE(S): F90.9 - Attention-deficit hyperactivity disorder, unspecified type (14) Schizophrenia: CODE(S): F20.9 - Schizophrenia, unspecified (15) Asthma: CODE(S): J45.909 - Unspecified asthma, uncomplicated (16) Obstructive sleep apnea on CPAP: CODE(S): G47.33 - Obstructive sleep apnea (adult) (pediatric) PLAN: Plan This is a morbidly obese diabetic female with multiple pre-existing medical problems. The patient presented with a traumatic wound on the right pretibial surface, the origin of which was due to trauma in November 2024. According to the patient, the prior culture was positive for Staph aureus, and the patient continues to take Bactrim and Levaquin orally. She has been encouraged to complete the course of antibiotics. The patient has been counseled to discontinue her smoking habit. Optimizing her nutritional intake and glycemic control has also been encouraged. Because of the patient's morbid obesity and diabetes mellitus, we are to request a dietary consultation to be provided on an outpatient basis. The appropriate conservative measures relative to the management of chronic swelling and edema in the lower extremities have been discussed with the patient in detail. The patient has been encouraged to elevate her lower extremities is much as possible. Elevation is to be during both daytime and nighttime hours. Elevation is to be to heart level, or higher. Prolonged idle sitting has been discouraged. Activity has been encouraged. An Unna compression wrap has been applied, and will remain in place with changes anticipated twice weekly. The patient is to return in 1 week for reevaluation. Total time: 48 minutes 02/15/25 1309 Cosigner Signature (if applicable): CC: ~ Signed [facility]08-01-2025 Telephone encounter Note* Telephone Encounter - Gyant - 02/10/2025 5:02 PM EDT Record ID: [id number] Patient name: Claudia Hebert Date: February 10, 2025 Administered by: JIMENA Protocol: -> Great! Now we are in a secure chat environment. Protecting your health information is important to us. Ok, let's get started. Please verify your name and date of . Please click on the button with your first name. -> Claudia Got it. On to the next question... Select the button with your last name. -> Anup Got it, thank you. Please enter your date of in MM/DD/YYYY format:(e.g., 07/31/1967 for Jul 31, 1967) -> 1980 Thank you for verifying your information. I'd like to ask you a few questions about how your recovery is going. Since leaving the hospital, do you have any new or worsening symptoms? -> No [facility]08-01-2025 Miscellaneous Notes* Telephone Encounter - Jimena - 02/10/2025 5:02 PM EDT Record ID: [id number] Patient name: Claudia Hebert Date: February 10, 2025 Administered by: JIMENA Protocol: -> Great! Now we are in a secure chat environment. Protecting your health information is important to us. Ok, let's get started. Please verify your name and date of . Please click on the button with your first name. -> Claudia Got it. On to the next question... Select the button with your last name. -> Anup Got it, thank you. Please enter your date of in MM/DD/YYYY format:(e.g., 07/31/1967 for Jul 31, 1967) -> 1980 Thank you for verifying your information. I'd like to ask you a few questions about how your recovery is going. Since leaving the hospital, do you have any new or worsening symptoms? -> No [facility] NoteHNO ID: [id number] Author: SHALA TURNER RN Service: Care Management Author Type: Registered Nurse Type: Care Mgt Progress Note Filed: 02/09/2025 14:00 Note Text: CARE MANAGEMENT DISCHARGE NOTE SERVICE DATE: February 09, 2025 SERVICE TIME: 2:00 PM Admission Date: 02/07/2025 LOS: 0 days Discharge Arrangement Discharge Arrangement: Home with Self Care Services Arranged Medical Services: Other: See Comment ([facility]One) Caregiver Assessment Caregiver is ready, willing and able to meet the patient's needs as recommended by the inter-professional team: No Caregiver needed Transportation Arrangements Transportation Arrangements: Car Date of Trip: 02/09/25 Time of Trip: 1400 Destination: Home Handoff Communication: Handoff to: Primary Care Physician Primary Care Physician Name/Phone: Akilah Wiggins APRN.CNP [phone] Additional Information: Discharge written for patient to go home with self care. Patient agreeable to discharge plan and denies needs. Sig other to transport. Bedside nurse updated. SOC sent to PCP. No skilled needs upon DC. SIGNATURE: Shala Turner RN PATIENT NAME: Claudia Hebert DATE: February 09, 2025 TIME: 2:00 [id number] NoteHNO ID: [id number] Author: CLAUDIA SALOMON RN Service: Care Management Author Type: Registered Nurse Type: Care Mgt Initial Assessment Filed: 02/08/2025 12:52 Note Text: CARE MANAGEMENT: ASSESSMENT AND DISCHARGE PLAN SERVICE DATE: February 08, 2025 SERVICE TIME: 11:44 am PCP: Akilah Wiggins APRN.CNP (confirmed) Primary Contact: Extended Emergency Contact Information Primary Emergency Contact: Shelley Mojica Mobile Relation: Significant other Secondary Emergency Contact: Judith Mojica Mobile Relation: Relative Admission Status: Observation Insurance Provider: [employer]ON[employer]ALE[employer] MEDICAID Discharge Planning requested by: Per Department Practice Potential Transition Plans Home, Home Care, Home OT/PT Advance Directives Current Advance Directive: None Ruching Machine Operator Attempted to Assist with AD Completion: Yes Action: Education Provided Current Living Arrangements and Support Lives with: Spouse/significant other Type of Residence: Mobile Home Does the patient have to climb stairs at home?: Yes, stairs outside the home (4 steps at entry) Support: Spouse/significant other How do you manage to accomplish the following: Independent: Ambulation, Bathe/Shower, Dress, Meals/Meal Prep, Going to the bathroom, Medication Management Dependent: Transportation to appointments/community Current Services/Equipment Current Post-Acute Service(s): DME Current DME Type: Cane, Wheelchair-manual Discharge Planning Patient Goal(s): Be able to go home, Independent living [place] Explained: [place] Given: No Reason Not Given: Unable to complete with this assessment - revisit Are you interested in bedside delivery of your medications? No Discharge Planning Participant(s): Patient, Spouse/significant other Patient/Family Comments: Caregiver Assessment: Caregiver is ready, willing and able to meet the patient's needs as recommended by the inter-professional team: Other: See Comment Transport at Discharge: Transportation Arrangements: Car Needs Prior to Discharge: Needs Prior to Discharge: OT/PT Evaluation, Other: See Comment, To Be Determined (Medical clearance) Post-Acute Discharge Plan: TBD Met with patient and partner Shelley at bedside, introduced self/role of TCC. Patient presented to [facility] ED for a wound check. Patient with increased pain and redness to RLE. Patient failed outpatient treatment of RLE cellulitis. Patient lives with her partner in a single level mobile home, there are 4 steps at entry. Per patient step are uneven and difficult to go down. Patient reports being independent with most ADLs, her partner Shelley assist as needed. Patient does not drive and uses a cane to ambulate. CM will continue to follow for discharge planning needs. SIGNATURE: Claudia Salomon RN PATIENT NAME: Claudia Hebert DATE: February 08, 2025 TIME: 12:46 [facility]MPremier [facility] [id number] NoteHNO ID: [id number] Author: AUGUST FISHER MD Service: Hospital Medicine Author Type: ? Type: Progress Notes Filed: 02/08/2025 15:32 Note Text: Attestation signed by August Fisher MD at 02/08/2025 3:32 PM I have personally seen and examined the patient. Case discussed with resident and I have personally edited the note and/or added additional info in my attestation to that effect. Continue empiric antibiotics however will need to narrow soon Follow wound culture Lower abdominal pain appears to be due to lymphedema no clear evidence of infection CT with no evidence of abscess or fluid collection in the lower abdomen Trial of diuretics Echocardiogram will be ordered August Fisher MD FACP CHCQM-PHYADV Staff [facility] Clinical Framing Mechanicdock operator [facility] DEPARTMENT OF [facility] MEDICINE PROGRESS NOTE SERVICE DATE: 02/08/2025 SERVICE TIME: 12:01 PM Hospital Medicine/Primary Attending: August Fisher MD NIGHT AND WEEKEND COVERAGE: [place] COVERAGE: Days: [phone], please page attending physician. Nights: [phone], please page [facility] Night coverage pager [phone]. Subjective Patient reports no significant pain over RLE wound area, but states she has marked pain upon palpation of the lower abdomen She reports popping her blisters at home to let them heal Denies fever, chills, vomiting. Admits nausea Requesting to go outside to smoke cigarettes but was told she was not allowed Requests [facility] for allergies Current Facility-Administered Medications Medication Dose Route Frequency vancomycin dosing and monitoring per pharmacy OTHER As Directed NaCl 0.9% iv flush bag 20 mL INTRAVENOUS PRN vancomycin iv piggyback 1.5 g in D5W 300 mL (VANCOCIN) 1.5 g INTRAVENOUS q 12 HR lumateperone cap 21 mg (CAPLYTA) 21 mg ORAL DAILY risperiDONE 0.5 mg tab(s) (RisperDAL) 0.5 mg ORAL AT BEDTIME buPROPion XL 150 mg tab(s) (WELLBUTRIN XL) 150 mg ORAL DAILY pantoprazole DR 40 mg tab(s) (PROTONIX) 40 mg ORAL DAILY (6 AM) acetaminophen 650 mg tab(s) (TYLENOL) 650 mg ORAL q 6 H PRN mometasone-formoterol 100-5 mcg/actuation 2 puff inhaler (DULERA) 2 puff INHALATION BID ciprofloxacin HCl 0.3 % 2 drop (CILOXAN) 2 drop BOTH EYES q 4 H while awake ipratropium-albuterol 3 mL nebulizer solution (DUONEB) 3 mL INHALATION q 4 H PRN propranolol 40 mg tab(s) (INDERAL) 40 mg ORAL TID traZODone 100 mg tab(s) (DESYREL) 100 mg ORAL AT BEDTIME nicotine 21 mg/24 hr 1 patch (NICODERM) 1 patch TRANSDERMAL DAILY And [START ON 02/09/2025] nicotine -- REMOVE patch OTHER DAILY And nicotine - verify patch OTHER q 8 H miconazole 2 % 1 application topical powder 1 application TOPICAL BID ondansetron (PF) 4 mg injection (ZOFRAN) 4 mg INTRAVENOUS q 6 H PRN ceFAZolin iv piggyback 2 g in D5W (iso-osmotic) 100 mL (ANCEF) 2 g INTRAVENOUS q 8 HR Objective PHYSICAL EXAM: BP 130/71 Pulse 79 Temp (Src) 98.5 (Axillary) Resp 20 Ht 5' 0 (1.52m) Wt 328 lb 7.8 oz (149.0kg) SpO2 93% BMI 64.15 kg/(m2). O2 Therapy: Room Air, %FIO2: 21 Physical Exam Performed GENERAL: Morbidly Obese, Alert, Cooperative HEAD/SINUSES: No significant findings EYES: PERRLA, EOMI, Positives Left eye remained closed during most of the encounter, b/l conjunctivitis EARS: external ears normal LUNGS: diminished breath sounds b/l CARDIAC: Rhythm: regular rate and rhythm, Rate: normal, No murmur ABDOMEN: Negative findings: no redness or warmth and Positive findings: obese, doughy abdomen, superficial lower abdominal pain due to pannus, suspected lymphedema EXTREMITIES: Positive findings: Edema: 1+ non-pitting edema Bilateral pedal and ankles, wounds were dressed and images were observed NEURO: Mental Status: She is oriented to person, place, and time PULSES: 2+ radial, 2+ dorsalis pedis Lines, Drains, and Airways Line Duration Peripheral 02/08/25 [facility] Left Forearm 20 Gauge <1 day Reviewed lines and needs to be continued: REASONS: Intravenous antibiotics DATA: Diagnostic tests reviewed for today's visit: Most recent labs Most recent imaging Assessment/Plan Problem List Assessment AND Plan Cellulitis of right lower extremity Asthma with chronic obstructive pulmonary disease (COPD) (HCC) Gastroesophageal reflux disease Generalized anxiety disorder BRITTANY (obstructive sleep apnea) Nicotine use disorder, F17.2 BMI 60.0-69.9, adult (HCC) Lower abdominal pain MPD syndrome Elevated blood pressure reading without diagnosis of hypertension Wound infection Leukocytosis Chronic conjunctivitis of both eyes HOSPITAL COURSE: Claudia Hebert is a 44 year old female presented with past medical history of asthma/COPD, SAI, GERD, HL (more content not included)... [facility] [id number] NoteHNO ID: [id number] Author: AKILAH WIGGINS APRN.FIRE INVESTIGATION MANAGER Service: ? Author Type: Nurse Practitioner Type: Progress Notes Filed: 02/07/2025 14:39 Note Text: Chief Complaint Patient presents with: Follow Up HPI Claudia Hebert is a 44 year old female who presents here today for Above Complaints.. Patient presents for follow up for leg cellulitis. Patient was prescribed bactrim on 01/24 for 7 day course. Patient and significant other report leg continued to get worse on ATB therapy. On 02/03 patient called in for worsening wound and was directed to ER but patient did not want to go as her cats were at home. Patient reports she has been using bacitracin left over from previous surgery on area and that she popped all the blisters as her mother in law said to do this so they could heal. Past medical history, appointments, medications, allergies reviewed. 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 PTSD (post-traumatic stress disorder) Schizophrenia (HCC) Previous Surgical History PAST SURGICAL HISTORY Procedure Laterality Date APPENDECTOMY 12/27/2023 Dr. Granados CHOLECYSTECTOMY HX INSERTION OF IUD 2023 Placed at [facility] Family History FAMILY HISTORY Problem Relation Age of Onset Hypertension Mother COPD Mother Carotid Disease Mother Ischemic Heart Disease Mother stents Stomach Cancer Father 1994 Hypertension Maternal Grandmother Stomach Cancer Maternal Grandmother 80's Arthritis Maternal Grandmother Dementia Maternal Grandmother Leukemia Maternal Grandfather Cancer Paternal Grandfather No Ocular Disease No Family History Patient Allergies ALLERGIES Allergen Reactions Nystatin Rash Current Medications Current Outpatient Medications on File Prior to Visit Medication Sig CAPLYTA 42 mg capsule Take 1 capsule by mouth once daily. buPROPion XL (WELLBUTRIN XL) 150 mg 24 hr tablet Take 1 tablet by mouth once daily. traZODone (DESYREL) 50 mg tablet Take 1 tablet by mouth daily at bedtime. fluconazole (DIFLUCAN) 150 mg tablet Take 1 tablet by mouth one time a week for 28 days. albuterol HFA (PROVENTIL HFA, VENTOLIN HFA) 90 mcg/actuation inhaler Inhale 2 puffs as instructed every 4 hours as needed for wheezing/shortness of breath. risperiDONE (RISPERDAL) 0.5 mg tablet Take 0.5 mg by mouth daily at bedtime. propranolol (INDERAL) 10 mg tablet TAKE 1 TABLET BY MOUTH TWICE DAILY and also TAKE 1 TABLET NEEDED FOR ANXIETY albuterol HFA (PROVENTIL HFA, VENTOLIN HFA) 90 mcg/actuation inhaler Albuterol Sulfate (Ventolin Hfa) 90 mcg/actuation HFA aerosol inhaler Active 2 NMA INHALATION EVERY 4 HOURS NEEDED as needed for Wheezing July 11, 2024 1:00am celecoxib (CELEBREX) 100 mg capsule Take 100 mg by mouth once daily. atorvastatin (LIPITOR) 10 mg tablet Take 10 mg by mouth once daily. Cetirizine (ZYRTEC) 10 mg cap Take by mouth. ADVAIR DISKUS 250-50 mcg/dose inhaler Inhale 1 Puff as instructed twice daily. ipratropium-albuterol (DUONEB) 0.5 mg-3 mg(2.5 mg base)/3 mL nebu Use twice daily scheduled and every 6 hours as needed for Shortness of breath omega-3 acid ethyl esters (LOVAZA) 1 gram capsule Take 1 g by mouth once daily. pantoprazole DR (PROTONIX) 40 mg tablet Take 40 mg by mouth every morning. No current facility-administered medications on file prior to visit. Social History Social History Tobacco Use Smoking status: Every Day Current packs/day: 1.00 Average packs/day: 1.5 packs/day for 16.1 years (23.6 ttl pk-yrs) Types: Cigarettes Start date: 01/11/2024 Passive exposure: Never Smokeless tobacco: Never Vaping Use Vaping status: Never Used Substance Use Topics Alcohol use: Yes Comment: rare Drug use: Never Review of Symptoms REVIEW OF SYSTEMS SEE HPI EXAM: BP 121/80 Pulse 86 Wt (!) 149 kg (328 lb 7.8 oz) LMP 09/14/2023 (Approximate) BMI 64.15 kg/m? General Appearance: Well appearing, alert, in no acute distress, well-hydrated, well nourished.. Skin: Right lower leg, red, swollen, hot and with multiple oozing open areas, worsened from previous assessment on 01/24. Health Maintenance List Depression Screening Never done Pneumococcal Vaccine(1 of 2 - PCV) Never done Mammogram Screening due on 03/01/2025 Hepatitis C Screening due on 08/22/2025 HIV Screening due on 08/22/2025 Influenza Vaccine(1) due on 03/13/2025 Annual PCP Team Chronic Disease Visit due on 01/24/2026 Cervical Cancer Screening due on 04/12/2027 DTaP,Tdap,Td Vaccine(2 - Td or Tdap) due on 01/24/2035 (more content not included)...[facility]07-29-2025 History of Present illness Narrative* Akilah Wiggins APRN.FIRE INVESTIGATION MANAGER - 02/07/2025 2:25 PM EDT Chief Complaint Patient presents with: Follow Up HPI Claudia Hebert is a 44 year old female who presents here today for Above Complaints.. Patient presents for follow up for leg cellulitis. Patient was prescribed bactrim on 01/24 for 7 daycourse. Patient and significant other report leg continued to get worse on ATB therapy. On 02/03 patient called in for worsening wound and was directed to ER but patient did not want to go as her catswere at home. Patient reports she has been using bacitracin left over from previous surgery on area and that she popped all the blisters as her mother in law said to do this so they could heal. Past medical history, appointments, medications, allergies reviewed. 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 PTSD (post-traumatic stress disorder) Schizophrenia (HCC) Previous Surgical History PAST SURGICAL HISTORY Procedure Laterality Date APPENDECTOMY 12/27/2023 Dr. Granados CHOLECYSTECTOMY HX INSERTION OF IUD 2023 Placed at [facility] Family History FAMILY HISTORY Problem Relation Age of Onset Hypertension Mother COPD Mother Carotid Disease Mother Ischemic Heart Disease Mother stents Stomach Cancer Father 1994 Hypertension Maternal Grandmother Stomach Cancer Maternal Grandmother 80's Arthritis Maternal Grandmother Dementia Maternal Grandmother Leukemia Maternal Grandfather Cancer Paternal Grandfather No Ocular Disease No Family History Patient Allergies ALLERGIES Allergen Reactions Nystatin Rash Current Medications Current Outpatient Medications on File Prior to Visit Medication Sig CAPLYTA 42 mg capsule Take 1 capsule by mouth once daily. buPROPion XL (WELLBUTRIN XL) 150 mg 24 hr tablet Take 1 tablet by mouth once daily. traZODone (DESYREL) 50 mg tablet Take 1 tablet by mouth daily at bedtime. fluconazole (DIFLUCAN) 150 mg tablet Take 1 tablet by mouth one time a week for 28 days. albuterol HFA (PROVENTIL HFA, VENTOLIN HFA) 90 mcg/actuation inhaler Inhale 2 puffs as instructed every 4 hours as needed for wheezing/shortness of breath. risperiDONE (RISPERDAL) 0.5 mg tablet Take 0.5 mg by mouth daily at bedtime. propranolol (INDERAL) 10 mg tablet TAKE 1 TABLET BY MOUTH TWICE DAILY and also TAKE 1 TABLET NEEDED FOR ANXIETY albuterol HFA (PROVENTIL HFA, VENTOLIN HFA) 90 mcg/actuation inhaler Albuterol Sulfate (Ventolin Hfa) 90 mcg/actuation HFA aerosol inhaler Active 2 NMA INHALATION EVERY 4 HOURS NEEDED as needed for Wheezing July 11, 2024 1:00am celecoxib (CELEBREX) 100 mg capsule Take 100 mg by mouth once daily. atorvastatin (LIPITOR) 10 mg tablet Take 10 mg by mouth once daily. Cetirizine (ZYRTEC) 10 mg cap Take by mouth. ADVAIR DISKUS 250-50 mcg/dose inhaler Inhale 1 Puff as instructed twice daily. ipratropium-albuterol (DUONEB) 0.5 mg-3 mg(2.5 mg base)/3 mL nebu Use twice daily scheduled and every 6 hours as needed for Shortness of breath omega-3 acid ethyl esters (LOVAZA) 1 gram capsule Take 1 g by mouth once daily. pantoprazole DR (PROTONIX) 40 mg tablet Take 40 mg by mouth every morning. No current facility-administered medications on file prior to visit. Social History Social History Tobacco Use Smoking status: Every Day Current packs/day: 1.00 Average packs/day: 1.5 packs/day for 16.1 years (23.6 ttl pk-yrs) Types: Cigarettes Start date: 01/11/2024 Passive exposure: Never Smokeless tobacco: Never Vaping Use Vaping status: Never Used Substance Use Topics Alcohol use: Yes Comment: rare Drug use: Never Review of Symptoms REVIEW OF SYSTEMS SEE HPI EXAM: BP 121/80 Pulse 86 Wt (!) 149 kg (328 lb 7.8 oz) LMP 09/14/2023 (Approximate) BMI 64.15 kg/m General Appearance: Well appearing, alert, in no acute distress, well-hydrated, well nourished.. Skin: Right lower leg, red, swollen, hot and with multiple oozing open areas, worsened from previous assessment on 01/24. Health Maintenance List Depression Screening Never done Pneumococcal Vaccine(1 of 2 - PCV) Never done Mammogram Screening due on 03/01/2025 Hepatitis C Screening due on 08/22/2025 HIV Screening due on 08/22/2025 Influenza Vaccine(1) due on 03/13/2025 Annual PCP Team Chronic Disease Visit due on 01/24/2026 Cervical Cancer Screening due on 04/12/2027 DTaP,Tdap,Td Vaccine(2 - Td or Tdap) due on 01/24/2035 Hepatitis B Vaccine Discontinued ASSESSMENT/PLAN: 1. Cellulitis and abscess of leg - ICD9: 682.6, ICD10: L03.119, L02.419 - Due to worsening infection and open areas patient directed to ER as she has failed treatment with2 oral antibiotics she will most likely need IV antibiotics. Verbalized understanding, significant other to transport to [facility] ER. Akilah Wiggins APRN.ADONIS documented [facility]07[facility] Telephone encounter Note * Telephone Encounter - Tierney Espino LPN - 02/03/2025 2:32 PM EDT Patient returned call and she had sent my chart message and picture of her leg to [employer]IST[employer]. Patient said she completed her 7 day rx of antibiotics and leg is much worse. Patient said her right lower leg and back of her left leg, had few blisters and now draining. Saturates a bandage in less than2 hours. She is trying to keep her pet cat hair of of the areas. Aware provider is out of the office today. She has had issues with her legs for some time now. Advised patient that since areas are much worse and said that her legs are yellow colored from edema that she needs to go to ER for evaluation, may need put on IV medications. Patient said she will go to ER. [facility]07-25-2025 Miscellaneous Notes* Telephone Encounter - Tierney Espino LPN - 02/03/2025 2:32 PM EDT Patient returned call and she had sent my chart message and picture of her leg to [employer] LEGAL ASSISTANT. Patient said she completed her 7 day rx of antibiotics and leg is much worse. Patient said her right lower leg and back of her left leg, had few blisters and now draining. Saturates a bandage in less than2 hours. She is trying to keep her pet cat hair of of the areas. Aware provider is out of the office today. She has had issues with her legs for some time now. Advised patient that since areas are much worse and said that her legs are yellow colored from edema that she needs to go to ER for evaluation, may need put on IV medications. Patient said she will go to ER. documented in this [facility]Prem[facility]07-[facility]-2025 Telephone encounter Note * Telephone Encounter - Raysa Joshua RN - 02/03/2025 2:24 PM EDT Pt had sent the following [employer] msg: --I have taken all the antibiotics its turning red and still draining what should I do now obvious to me its more thn edema Attempted to reach pt x 2 with no answer. LM for pt to go to the ER as she has had this leg infection for about a month and has already been on 2 different oral antibiotics and still having problems.Called and got a hold of pt's significant other Shelley who was with pt. Spoke with both of them and gave them instructions to ER as pt could become septic if not properly treated and has been on antibiotics twice. Both verbalize understanding and state she will go to [facility] ER. Reason for Disposition [1] Widespread rash AND [2] bright red, sunburn-like Protocols used: Cellulitis on Antibiotic Follow-up [id number] [facility]07-25-2025 Miscellaneous Notes* Telephone Encounter - Raysa Joshua RN - 02/03/2025 2:24 PM EDT Pt had sent the following [employer] msg: --I have taken all the antibiotics its turning red and still draining what should I do now obvious to me its more thn edema Attempted to reach pt x 2 with no answer. LM for pt to go to the ER as she has had this leg infection for about a month and has already been on 2 different oral antibiotics and still having problems.Called and got a hold of pt's significant other Shelley who was with pt. Spoke with both of them and gave them instructions to ER as pt could become septic if not properly treated and has been on antibiotics twice. Both verbalize understanding and state she will go to [facility] ER. Reason for Disposition [1] Widespread rash AND [2] bright red, sunburn-like Protocols used: Cellulitis on Antibiotic Follow-up [id number] documented in this encounterPrem[facility]07-[facility]-2025 Telephone encounter Note * Telephone Encounter - Ne Barrera MA - 02/03/2025 1:46 PM EDT Added to Nurse Triage appt. Ne Barrera MA [facility]07-25-2025 Miscellaneous Notes* Telephone Encounter - Ne Barrera MA - 02/03/2025 1:46 PM EDT Added to Nurse Triage appt. Ne Barrera MA documented in this encounterPrem[facility]07-15-2025 Telephone encounter Note * Telephone Encounter - Destini Shah RN - 01/24/2025 3:42 PM EDT Call placed to Randy with [facility] and notified of below with verbalized understanding. Destini Shah RN [facility]07-15-2025 Miscellaneous Notes* Telephone Encounter - Destini Shah RN - 01/24/2025 3:42 PM EDT Call placed to Randy with [facility] and notified of below with verbalized understanding. Destini Shah RN * Telephone Encounter - Akilah Wiggins APRN.ADONIS - 01/24/2025 3:00 PM EDT I am aware of the interaction and will have close follow up with patient but she had an allergic reaction to nystatin so fluconazole is the only option. * Telephone Encounter - Destini Shah RN - 01/24/2025 2:43 PM EDT Radny with [facility] calls to let provider know that the fluconazole that is prescribed for patienthas a severe interaction with one of the medications that patient is prescribed [facility]. The interaction would be with Caplyta and can cause increasingly high levels in the blood and lead to seizures. Caplyta last filled 01/03/2025. Randy says there is no alternative to the fluconazole. Please review and advise, Destini Shah RN documented in this encounterPrem[facility]07-15-2025 Telephone encounter Note * Telephone Encounter - Akilah Wiggins APRN.CNP - 01/24/2025 3:00 PM EDT I am aware of the interaction and will have close follow up with patient but she had an allergic reaction to nystatin so fluconazole is the only option. [facility]07-15-2025 Telephone encounter Note* Telephone Encounter - Destini Shah RN - 01/24/2025 2:43 PM EDT Randy with [facility] calls to let provider know that the fluconazole that is prescribed for patienthas a severe interaction with one of the medications that patient is prescribed by [facility]. The interaction would be with Caplyta and can cause increasingly high levels in the blood and lead to seizures. Caplyta last filled 01/03/2025. Randy says there is no alternative to the fluconazole. Please review and adviseDestini RN [facility]07-15-2025 NoteHNO ID: [id number] Author: AKILAH WIGGINS APRN.CNP Service: ? Author Type: Nurse Practitioner Type: Progress Notes Filed: 01/24/2025 12:40 Note Text: Chief Complaint Patient presents with: Establish Care HPI Claudia Hebert is a 44 year old female who presents here today for Above Complaints. Obesity: - BMI: 66.31. - Believes psychiatric medications are contributing to weight gain. - Requests blood work to check for diabetes and thyroid function. - Denies diabetes diagnosis; willing to undergo testing. - Family history of diabetes. - Desires weight loss before attempting smoking cessation. Cellulitis: - Cellulitis on right lower leg and left posterior leg, treated with Keflex; improved but not resolved. - Reports abdominal wall cellulitis, with large areas of yeast infection. - Allergic reaction to nystatin. - Denies wearing compression socks due to discomfort. COPD: - Uses Advair BID; reports inadequate symptom control. - Last pulmonary function test unknown. - Smokes one pack of cigars daily; reduced from 1.5 packs last year. - Denies vaping. Anxiety: - Severe anxiety attacks; initially sought treatment for anxiety. - Taking trazodone 50 mg and melatonin 20 mg for sleep; reports ineffective sleep aid. ADHD: - Diagnosed by therapist; experiences daily transitions between personalities. - Reports racing thoughts and difficulty sleeping. PTSD: - History of trauma; no specific details provided. Schizophrenia: - Diagnosed with schizophrenia; no specific details provided. Surgical History: - Cholecystectomy and appendectomy. - IUD inserted last year. Family History: - Mother has HTN, COPD, asthma, and possible coronary artery blockage. - Father of leukemia. - Grandmother had dementia. - Grandfather of cancer. Social History: - Rare alcohol use. - Denies drug use. Past medical history, appointments, medications, allergies reviewed. 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 Granados CHOLECYSTECTOMY HX Family History FAMILY HISTORY Problem Relation Age of Onset No Ocular Disease No Family History Patient Allergies ALLERGIES No Known Allergies Current Medications Current Outpatient Medications on File Prior to Visit Medication Sig albuterol HFA (PROVENTIL HFA, VENTOLIN HFA) 90 mcg/actuation inhaler Inhale 2 puffs as instructed every 4 hours as needed for wheezing/shortness of breath. risperiDONE (RISPERDAL) 0.5 mg tablet Take 0.5 mg by mouth daily at bedtime. propranolol (INDERAL) 10 mg tablet TAKE 1 TABLET BY MOUTH TWICE DAILY and also TAKE 1 TABLET NEEDED FOR ANXIETY albuterol HFA (PROVENTIL HFA, VENTOLIN HFA) 90 mcg/actuation inhaler Albuterol Sulfate (Ventolin Hfa) 90 mcg/actuation HFA aerosol inhaler Active 2 NMA INHALATION EVERY 4 HOURS NEEDED as needed for Wheezing July 11, 2024 1:00am predniSONE (DELTASONE) 20 mg tablet 60 mg. (Patient not taking: Reported on 12/28/2024) traZODone (DESYREL) 50 mg tablet Take 50 mg by mouth daily at bedtime. celecoxib (CELEBREX) 100 mg capsule Take 100 mg by mouth once daily. atorvastatin (LIPITOR) 10 mg tablet Take 10 mg by mouth once daily. venlafaxine XR (EFFEXOR XR) 225 mg tablet Take 225 mg by mouth once daily. (Patient not taking: Reported on 12/28/2024) dextromethorphan-guaiFENesin (MUCINEX DM) 30-600 mg per tablet Take 1 tablet by mouth two times a day. (Patient not taking: Reported on 12/28/2024) Cetirizine (ZYRTEC) 10 mg cap Take by mouth. ADVAIR DISKUS 250-50 mcg/dose inhaler Inhale 1 Puff as instructed twice daily. ipratropium-albuterol (DUONEB) 0.5 mg-3 mg(2.5 mg base)/3 mL nebu Use twice daily scheduled and every 6 hours as needed for Shortness of breath omega-3 acid ethyl esters (LOVAZA) 1 gram capsule Take 1 g by mouth once daily. pantoprazole DR (PROTONIX) 40 mg tablet Take 40 mg by mouth every morning. No current facility-administered medications on file prior to visit. Social History Social History Tobacco Use Smoking status: Every Day Current packs/day: 1.50 Average packs/day: 1.5 packs/day for 15.0 years (22.5 ttl pk-yrs) Types: Cigarettes Passive exposure: Never Smokeless tobacco: Never Vaping Use Vaping status: Never Used Substance Use Topics Alcohol use: Yes Comment: rare Drug use: Never Review of Symptoms REVIEW OF SYSTEMS SEE HPI EXAM: BP 127/76 Pulse 85 Wt (!) 154 kg (339 lb 8.1 oz) LMP 09/14/2023 (Approximate) BMI 66.31 kg/m? General Appearance: Well appearing, alert, in no acute distress, well-hydrated, well nourish (more content not included)...[facility]07-15-2025 History of Present illness Narrative* Akilah Wiggins APRN.FIRE INVESTIGATION MANAGER - 01/24/2025 11:35 AM EDT Chief Complaint Patient presents with: [facility] HPI Claudia Hebert is a 44 year old female who presents here today for Above Complaints. Obesity: - BMI: 66.31. - Believes psychiatric medications are contributing to weight gain. - Requests blood work to check for diabetes and thyroid function. - Denies diabetes diagnosis; willing to undergo testing. - Family history of diabetes. - Desires weight loss before attempting smoking cessation. Cellulitis: - Cellulitis on right lower leg and left posterior leg, treated with Keflex; improved but not resolved. - Reports abdominal wall cellulitis, with large areas of yeast infection. - Allergic reaction to nystatin. - Denies wearing compression socks due to discomfort. COPD: - Uses Advair BID; reports inadequate symptom control. - Last pulmonary function test unknown. - Smokes one pack of cigars daily; reduced from 1.5 packs last year. - Denies vaping. Anxiety: - Severe anxiety attacks; initially sought treatment for anxiety. - Taking trazodone 50 mg and melatonin 20 mg for sleep; reports ineffective sleep aid. ADHD: - Diagnosed by therapist; experiences daily transitions between personalities. - Reports racing thoughts and difficulty sleeping. PTSD: - History of trauma; no specific details provided. Schizophrenia: - Diagnosed with schizophrenia; no specific details provided. Surgical History: - Cholecystectomy and appendectomy. - IUD inserted last year. Family History: - Mother has HTN, COPD, asthma, and possible coronary artery blockage. - Father of leukemia. - Grandmother had dementia. - Grandfather of cancer. Social History: - Rare alcohol use. - Denies drug use. Past medical history, appointments, medications, allergies reviewed. 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 Granados CHOLECYSTECTOMY HX Family History FAMILY HISTORY Problem Relation Age of Onset No Ocular Disease No Family History Patient Allergies ALLERGIES No Known Allergies Current Medications Current Outpatient Medications on File Prior to Visit Medication Sig albuterol HFA (PROVENTIL HFA, VENTOLIN HFA) 90 mcg/actuation inhaler Inhale 2 puffs as instructed every 4 hours as needed for wheezing/shortness of breath. risperiDONE (RISPERDAL) 0.5 mg tablet Take 0.5 mg by mouth daily at bedtime. propranolol (INDERAL) 10 mg tablet TAKE 1 TABLET BY MOUTH TWICE DAILY and also TAKE 1 TABLET NEEDED FOR ANXIETY albuterol HFA (PROVENTIL HFA, VENTOLIN HFA) 90 mcg/actuation inhaler Albuterol Sulfate (Ventolin Hfa) 90 mcg/actuation HFA aerosol inhaler Active 2 NMA INHALATION EVERY 4 HOURS NEEDED as needed for Wheezing July 11, 2024 1:00am predniSONE (DELTASONE) 20 mg tablet 60 mg. (Patient not taking: Reported on 12/28/2024) traZODone (DESYREL) 50 mg tablet Take 50 mg by mouth daily at bedtime. celecoxib (CELEBREX) 100 mg capsule Take 100 mg by mouth once daily. atorvastatin (LIPITOR) 10 mg tablet Take 10 mg by mouth once daily. venlafaxine XR (EFFEXOR XR) 225 mg tablet Take 225 mg by mouth once daily. (Patient not taking: Reported on 12/28/2024) dextromethorphan-guaiFENesin (MUCINEX DM) 30-600 mg per tablet Take 1 tablet by mouth two times a day. (Patient not taking: Reported on 12/28/2024) Cetirizine (ZYRTEC) 10 mg cap Take by mouth. ADVAIR DISKUS 250-50 mcg/dose inhaler Inhale 1 Puff as instructed twice daily. ipratropium-albuterol (DUONEB) 0.5 mg-3 mg(2.5 mg base)/3 mL nebu Use twice daily scheduled and every 6 hours as needed for Shortness of breath omega-3 acid ethyl esters (LOVAZA) 1 gram capsule Take 1 g by mouth once daily. pantoprazole DR (PROTONIX) 40 mg tablet Take 40 mg by mouth every morning. No current facility-administered medications on file prior to visit. Social History Social History Tobacco Use Smoking status: Every Day Current packs/day: 1.50 Average packs/day: 1.5 packs/day for 15.0 years (22.5 ttl pk-yrs) Types: Cigarettes Passive exposure: Never Smokeless tobacco: Never Vaping Use Vaping status: Never Used Substance Use Topics Alcohol use: Yes Comment: rare Drug use: Never Review of Symptoms REVIEW OF SYSTEMS SEE HPI EXAM: BP 127/76 Pulse 85 Wt (!) 154 kg (339 lb 8.1 oz) LMP 09/14/2023 (Approximate) BMI 66.31 kg/m General Appearance: Well appearing, alert, in no acute distress, well-hydrated, well nourished.. Skin: Positives: Rash: Bilateral open areas to right anterior de souza and left posterior calf. Draining thick yellow drainage. Lungs: Lungs clear to auscultation. No wheezing, rhonchi, rales.. Heart: RRR without murmur, gallop, or rubs. No ectopy. Abdomen: Positive findings: obese, tenderness moderate lower abd, abdominal wall cellulitis, likelychronic due to degree of stiffening, Musculoskeletal: No joint swelling, deformity, or tenderness Peripheral Pulses: Normal. Neurologic: Gait normal. Reflexes normal and symmetric. Sensation grossly intact.. Health Maintenance List Depression Screening Never done DTaP,Tdap,Td Vaccine(1 - Tdap) Never done Hepatitis B Vaccine(1 of 3 - 19+ 3-dose series) Never done Pneumococcal Vaccine(1 of 2 - PCV) Never done Mammogram Screening due on 03/01/2025 Hepatitis C Screening due on 08/22/2025 HIV Screening due on 08/22/2025 Covid-19 Vaccine( - season) due on 08/22/2025 Influenza Vaccine(1) due on 03/13/2025 Annual PCP Team Chronic Disease Visit due on 08/22/2025 Cervical Cancer Screening due on 04/12/2027 ASSESSMENT/PLAN: 1. Intertrigo - ICD9: 695.89, ICD10: L30.4 (primary diagnosis) - FLUCONAZOLE 150 MG TABLET 2. Hyperlipidemia, mixed - ICD9: 272.2, ICD10: E78.2 - Control undetermined, due for labs - Continue current medications - Counseled on healthy diet and regular exercise - LIPID PANEL, NONFASTING 3. Generalized anxiety disorder - ICD9: 300.02, ICD10: F41.1 - MRI BRAIN WO IVCON - CONSULT TO PSYCHIATRY 4. Morbid obesity (HCC) - ICD9: 278.01, ICD10: E66.01 Weight increasing - THYROID STIMULATING HORMONE - T3 - T4 FREE/FREE THYROXINE - INSULIN, TOTAL, SERUM - SULFAMETHOXAZOLE 800 MG-TRIMETHOPRIM 160 MG TABLET - SPIROMETRY - BASELINE AND POST DILATOR - LUNG VOLUMES - CONSULT TO GENERAL SURGERY - BUPROPION XL 150 MG TAB 5. Tobacco abuse - ICD9: 305.1, ICD10: Z72.0 - Cessation encouraged. - Physiologic and physical aspects of tobacco addiction as well as strategies for quitting were discussed. - Counseling was given focusing on the harmful effects of this addiction especially given the patient's medical condition(s) which will be worsened because of the chemicals in tobacco. - Counseling was given 8 minutes. - Prescription for bupropion (Wellbutrin) given 6. Asthma with chronic obstructive pulmonary disease (COPD) ([facility]) - ICD9: 493.20, ICD10: J44.89 - Unknown severity, PFT's ordered - Continue current medications - Avoidance of triggers recommended - Symptoms uncontrolled - Encouraged physical activity and exercise - Smoking cessation encouraged; discussed health risks and quitting strategies. Patient is ready toquit and bupropion (Zyban) prescribed - - SPIROMETRY - BASELINE AND POST DILATOR - LUNG VOLUMES 7. Gastroesophageal reflux disease without esophagitis - ICD9: 530.81, ICD10: K21.9 - Continue treatment with Pantoprazole - COMPLETE BLOOD COUNT AND DIFFERENTIAL 8. Screening for diabetes mellitus - ICD9: V77.1, ICD10: Z13.1 - COMPREHENSIVE METABOLIC PANEL - HEMOGLOBIN A1C 9. Abdominal wall cellulitis - ICD9: 682.2, ICD10: L03.311 - Continue treatment with Fluconazole for yeast and Bactrim - CONSULT TO GENERAL SURGERY 10. Cellulitis and abscess of leg - ICD9: 682.6, ICD10: L03.119, L02.419 - Begin treatment with Trimethoprim-sulfamethozazole (Bactrim) 2 DS PO BID - SULFAMETHOXAZOLE 800 MG-TRIMETHOPRIM 160 MG TABLET 11. Encounter for tobacco use cessation counseling - ICD9: V65.42, ICD10: Z71.6 - Cessation encouraged. - Physiologic and physical aspects of tobacco addiction as well as strategies for quitting were discussed. - Counseling was given focusing on the harmful effects of this addiction especially given the patient's medical condition(s) which will be worsened because of the chemicals in tobacco. - Prescription for bupropion (Wellbutrin) given - BUPROPION XL 150 MG TAB 12. Chronic insomnia - ICD9: 780.52, ICD10: F51.04 - TRAZODONE 50 MG TABLET 13. PTSD (post-traumatic stress disorder) - ICD9: 309.81, ICD10: F43.10 - MRI BRAIN WO IVCON - CONSULT TO PSYCHIATRY 14. 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 Other specified attention deficit hyperactivity disorder (ADHD) - ICD9: 314.01, ICD10: F90.8 - BUPROPION XL 150 MG TAB 16. Injury of head, subsequent encounter - ICD9: 959.01, ICD10: S09.90XD - MRI BRAIN WO IVCON 17. Encounter for immunization - ICD9: V03.89, ICD10: Z23 - TDAP VACCINE, AGE 7+ YR (ADACEL, BOOSTRIX) 18. Encounter for screening mammogram for breast cancer - ICD9: V76.12, ICD10: Z12.31 - Set up for mammogram, yearly mammogram recommended - Encouraged monthly BSE - Follow up for annual exam in one year. - ABHAY SCREENING W RAFFI Wiggins APRN.FIRE INVESTIGATION MANAGER documented in this encounterPremier [facility] NoteHNO ID: [id number] Author: ANNELIESE ECHAVARRIA MA Service: ? Author Type: Corporate Logistics Manager Type: Progress Notes Filed: 01/04/2025 13:53 Note Text: ED Follow Up: Patient discharged from [facility] ED on 12/29/24, 01/02/25. 1. How are you feeling since your ED visit? States her wound is healing but her stomach is still hurting, her fibroid tumor came back in her uterine wall. Have your symptoms improved or resolved? No 2. Were you prescribed any medications while in the ED or advised to stop any medication? Yes - If yes, were you able to fill your prescriptions? Yes -if stopped medication, what was the medication? N/A 3. Were you advised to schedule a follow up appointment with your provider? Yes - If no, Do you feel like you need an appointment scheduled? Not applicable - If yes, Do you need this scheduled now or has this already been scheduled? Declines appointment at this time as she is transferring care to a provider closer to home and will be seeing them on 01/24/25. 4. Were you able to contact the office or accounting manager assistant controller provider prior to your ED visit? Not applicable 5. Is there anything else I can do for you today? No Anneliese Echavarria MASt[facility]06-[facility] History of Present illness Narrative* Anneliese Echavarria MA - 01/04/2025 1:48 PM EDT ED Follow Up: [facility]. 1. How are you feeling since your ED visit? States her wound is healing but her stomach is still hurting, her fibroid tumor came back in her uterine wall. Have your symptoms improved or resolved? No 2. Were you prescribed any medications while in the ED or advised to stop any medication? Yes - If yes, were you able to fill your prescriptions? Yes -if stopped medication, what was the medication? N/A 3. Were you advised to schedule a follow up appointment with your provider? Yes - If no, Do you feel like you need an appointment scheduled? Not applicable - If yes, Do you need this scheduled now or has this already been scheduled? Declines appointment at this time as she is transferring care to a provider closer to home and will be seeing them on 01/24/25. 4. Were you able to contact the office or accounting manager assistant controller provider prior to your ED visit? Not applicable 5. Is there anything else I can do for you today? No Anneliese Echavarria MA documented in this encounterPremier [facility]06-25-2025 NotePatient Outreach (AGFAMPLE) CLAUDIA HEBERT ([id number]) 1980 F Date Time Provider Department 01/04/25 ADDIE HOLLEY During your visit today, we recorded the following information about you: Anneliese Echavarria MA 01/04/2025 1:53 PM Signed ED Follow Up: Patient discharged from [facility] ED on 12/29/24, 01/02/25. 1. How are you feeling since your ED visit? States her wound is healing but her stomach is still hurting, her fibroid tumor came back in her uterine wall. Have your symptoms improved or resolved? No 2. Were you prescribed any medications while in the ED or advised to stop any medication? Yes - If yes, were you able to fill your prescriptions? Yes -if stopped medication, what was the medication? N/A 3. Were you advised to schedule a follow up appointment with your provider? Yes - If no, Do you feel like you need an appointment scheduled? Not applicable - If yes, Do you need this scheduled now or has this already been scheduled? Declines appointment at this time as she is transferring care to a provider closer to home and will be seeing them on 01/24/25. 4. Were you able to contact the office or accounting manager assistant controller provider prior to your ED visit? Not applicable 5. Is there anything else I can do for you today? No Anneliese Echavarria MA Allergies As of Date: 01/04/2025 (No Known Allergies) Date Reviewed: 12/29/2024 Reviewed by: Anika oRckwell RT(R) - Fully Assessed Reason for Visit: ED Follow-up [821] Cmt: [place] [facility] 12/29/24, [facility] 01/02/25 Prescriptions as of 01/04/2025 - albuterol HFA (PROVENTIL HFA, VENTOLIN HFA) 90 mcg/actuation inhaler Inhale 2 puffs as instructed every 4 hours as needed for wheezing/shortness of breath. - doxycycline monohydrate (MONODOX) 100 mg capsule Take 1 capsule by mouth two times a day for 7 days. - nystatin (MYCOSTATIN) powder Apply 1 application to affected area three times a day for 14 days. - risperiDONE (RISPERDAL) 0.5 mg tablet Take 0.5 mg by mouth daily at bedtime. - propranolol (INDERAL) 10 mg tablet TAKE 1 TABLET BY MOUTH TWICE DAILY and also TAKE 1 TABLET NEEDED FOR ANXIETY - albuterol HFA (PROVENTIL HFA, VENTOLIN HFA) 90 mcg/actuation inhaler Albuterol Sulfate (Ventolin Hfa) 90 mcg/actuation HFA aerosol inhaler Active 2 NMA INHALATION EVERY 4 HOURS NEEDED as needed for Wheezing July 11, 2024 1:00am - predniSONE (DELTASONE) 20 mg tablet 60 mg. - traZODone (DESYREL) 50 mg tablet Take 50 mg by mouth daily at bedtime. - celecoxib (CELEBREX) 100 mg capsule Take 100 mg by mouth once daily. - atorvastatin (LIPITOR) 10 mg tablet Take 10 mg by mouth once daily. - venlafaxine XR (EFFEXOR XR) 225 mg tablet Take 225 mg by mouth once daily. - dextromethorphan-guaiFENesin (MUCINEX DM) 30-600 mg per tablet Take 1 tablet by mouth two times a day. - Cetirizine (ZYRTEC) 10 mg cap Take by mouth. - ADVAIR DISKUS 250-50 mcg/dose inhaler Inhale 1 Puff as instructed twice daily. - ipratropium-albuterol (DUONEB) 0.5 mg-3 mg(2.5 mg base)/3 mL nebu Use twice daily scheduled and every 6 hours as needed for Shortness of breath - omega-3 acid ethyl esters (LOVAZA) 1 gram capsule Take 1 g by mouth once daily. - pantoprazole DR (PROTONIX) 40 mg tablet Take 40 mg by mouth every morning. Problem List As Of Date 01/04/2025 Noted Resolved Acute appendicitis [K35.80] 12/26/2023 12/27/2023 Abdominal pain [R10.9] 12/26/2023 12/29/2023 Leukocytosis [D72.829] 12/26/2023 12/29/2023 Appendicitis, acute [K35.80] 12/26/2023 12/29/2023 Asthma without status asthmaticus [J45.909] 10/18/2021 Cellulitis [L03.90] 09/17/2022 Asthma with chronic obstructive pulmonary disea*10/18/2021 Gastroesophageal reflux disease [K21.9] 10/18/2021 Generalized anxiety disorder [F41.1] 10/18/2021 Hyperlipidemia [E78.5] 11/17/2022 Morbid obesity (HCC) [E66.01] 10/18/2021 BRITTANY (obstructive sleep apnea) [G47.33] 10/18/2021 Nicotine use disorder, F17.2 [F17.200] 12/27/2023 BMI 60.0-69.9, adult (HCC) [Z68.44] 12/27/2023 History of laparoscopic appendectomy [Z90.49] 12/27/2023 12/29/2023 Acute respiratory failure with hypoxia (HCC) [J*12/27/2023 12/29/2023 Tobacco abuse [Z72.0] 12/27/2023 Atelectasis [J98.11] 12/27/2023 Acute appendicitis with generalized peritonitis*12/29/2023 Right lower quadrant abdominal pain [R10.31] 12/29/2023 Chronic left shoulder pain [M25.512, G89.29] 11/07/2024 Encounter Status:Closed by ANNELIESE ECHAVARRIA on 01/04/25[facility] Discharge summary [facility] Medical Records Department [address] [place] [address] Emergency Department Summary 01/02/25 MR#: [id number] Acct: [id number] Name: CLAUDIA HEBERT Rep #:[id number] : 1980 44 From: [facility] PCP: Dr. Addie Holley, DO Status:RE G ER Location: ED HPI History of Present Illness HPI Narrative: Patient presents with redness to her right lower leg that has been getting worseover the past week.Patient was seen at [place] emergency department for this. Patient was started on doxycycline. Patientalso admits to a rash in her abdominal skin folds. Patient states she was given nystatin for this. Patient states the nystatin made this worse. Patient states she does not feel she is getting any better. Patient admits to some nausea but denies any vomiting. Family states patient appears to be moreconfused. Patient denies any fevers orchills. Patient denies any trauma or injury. Chief Complaint: Lower Extremity Injury Informant: patient Onset/Context/Timing Onset: Weeks (1) Context: Gradual Onset Timing: Continuous Location: Right lower leg Worsened by: Nothing Relieved by: Nothing Associated Symptoms Associated Symptoms: Negative for Parasthesia, Weakness or Loss of Funtion [facility] Medical History (Updated 01/03/25 @ 00:[address] Cale Dolan, DO) Toxoplasmosis chorioretinitis COPD (chronic obstructive pulmonary disease) Asthma Home Medications ?Medication ?Instructions ?Recorded ?Last Taken ?Type albuterol sulfate 90 mcg/actuation 2 puff inhalation Q 4H PRN PRN 07/11/24 Unknown Rx aerosol inhaler (Ventolin HFA) Wheezing ##1 prednisone 20 mg tablet 60 mg (3 x 20 mg) PO DAILY # 12 07/11/24 Unknown Rx TABLETS celecoxib 100 mg capsule 100 mg PO DAILY 01/02/25 Unk nown History cetirizine 10 mg tablet 10 mg PO DAILY 01/02/25 Unkn own History doxycycline monohydrate 100 mg 100 mg PO BID 01/02/25 Unknown History capsule nystatin 100,000 unit/gram topical 1 applic topical TI D 01/02/25 Unknown History powder omega-3 acid ethyl esters 1 gram 1 cap PO DAILY Unknown History capsule pantoprazole 40 mg tablet,delayed 40 mg PO 01/02/25 Un known History release risperidone 0.5 mg tablet 0.5 mg PO QHS 01/02/25 Unkno wn History trazodone 50 mg tablet 50 mg PO QHS 01/02/25 Unknow n History venlafaxine 225 mg tablet,extended 225 mg PO DAILY Unknown History release 24 hr cephalexin 500 mg capsule 500 mg PO Q6 #40 CAPSULES Unknown Rx Allergy/AdvReac Type Severity Reaction Status Date / Time No Known Allergies Allergy Verified 01/02/25 17:48 Family History no significant family his Surgical History (Updated 01/02/25 @ 19:[address] Cale Dolan DO) Hx of cholecystectomy Hx of appendectomy Social History household members: friend(s) Smoking Status: Light Smoker (<10/day) ROS ROS ED Constitutional Constitutional ED: Denies chills or fever(s) Eyes Eyes: Denies blurry vision or change in vision ENT ENT ED: Denies rhinorrhea or sore throat Cardiovascular Cardiovascular: Denies chest pain or palpitations Respiratory/Chest Respiratory/Chest: Denies cough or dyspnea Gastrointestinal Gastrointestinal: Reports nausea; Denies vomiting Genitourinary Genitourinary ED: Denies dysuria or hematuria Musculoskeletal Musculoskeletal: Denies back pain or neck pain Integumentary Reports rash; Denies abscess Neurologic Neurologic: Denies headache(s) or weakness Allergic/Immunologic Allergic/Immunologic ED: Denies mouth swelling or urticaria EXAM Physical Exam Const Vital Signs: 01/02/25 17:47 01/02/25 17:56 01/02/25 18:56 Temperature 98.3 F 98.3 F 98.3 F Temperature Source Temporal Oral Oral Pulse Rate 89 89 89 Respiratory Rate 14 16 16 Respiratory Pattern Blood Pressure 161/96 H 161/96 H 149/72 H Blood Pressure Mean 117 117 97 Pulse Ox 98 98 100 Oxygen Delivery Method Room Air Room Air Room Air 01/02/25 20:00 01/02/25 21:00 01/02/25 22:00 Temperature 98.3 F 98.8 F 98.8 F Temperature Source Oral Oral Oral Pulse Rate 85 89 90 Respiratory Rate 20 H 20 H 20 H Respiratory Pattern Blood Pressure 154/76 H 149/80 H 128/73 H Blood Pressure Mean 102 103 91 Pulse Ox 94 94 94 Oxygen Delivery Method Room Air Room Air Room Air 01/02/25 22:11 01/02/25 23:00 01/03/25 00:00 Temperature 98.8 F 98.8 F Temperature Source Oral Oral Pulse Rate 90 83 83 Respiratory Rate 20 H 18 18 Respiratory Pattern Normal Blood Pressure 139/84 H 145/92 H Blood Pressure Mean 102 109 Pulse Ox 94 94 Oxygen Delivery Method Room Air Room Air Positive well nourished and well developed General Appearance ED: well developed and NAD HEENT Reports moist mucous membranes Neck full ROM and supple Resp normal respiratory effort and clear to auscultation bilaterally Cardio regular rate and regular rhythm GI non-distended Palpation: soft and tender RLQ Extremity Extremity Narrative: There are superficial wounds over the anterior aspect of the right lower leg. There is some erythema around this. There is no purulent discharge or drainage noted. There is no evidence of any abscess. There is no calf tenderness. Pedal pulses are equal bilaterally. Sensation was intact to light touch bilaterally in the lower extremities. Strength is 5/5 bilaterally in the lower extremities. Neuro oriented x3, CN's II-XII intact bilaterally, moves all extremities and no sensory deficits noted Sensorium / Orientation: alert Motor Exam: strength 5/5 throughout Psych mental status grossly normal MDM MDM MDM Narrative Medical decision making narrative: Differential diagnosis includes cellulitis, gastroenteritis, urinary tract infection, ureteral calculus, dehydration, electrolyte abnormality, cardiac dysrhythmia, cardiac ischemia, intracranial bleeding, and sepsis. CBC will be obtained to assess for leukocytosis and anemia. Comprehensive metabolic profilewill be obtained to assess for hepatic function, renal function, and electrolyteabnormality. Urinalysis will be obtained to assess for urinary tract infection and hematuria. Serum lactate will be obtained to assess for sepsis. PT with INR and PTT will be obtained to assess for coagulopathy.Chest x-ray will be obtained to assess for pneumonia and bronchitis. EKG will be obtained to assessf or cardiac dysrhythmia and cardiac ischemia. CT scan of the brain will be obtained to assess for intracranial bleeding. Blood cultures will be obtained to assess for sepsis. Urine culture will be obtained to assess for urinary tract infection. History & Record Review Additional record(s) reviewed:: Prior labs Lab Data Attestation: I reviewed the patient's lab results. Lab results narrative: CBC was reviewed. There is a mild leukocytosis of 14.2. The remainder is within normal limits. Comprehensive metabolic profile was reviewed. Potassium was slightly elevated at 5.3 but there was hemolysis noted. Glucose was mildly elevated at 129. CO2 was slightly low at 18.6. The remainder was essentially within normal limits. Serum lactate was reviewed and was slightly elevated at 2.6. High-sensitivity troponin was reviewed and was less than 6. BNP was reviewed and was normal at 163. Urinalysis was reviewed. There is no evidence of urinary tract infection or hematuria. 2-hour repeat high-sensitivity troponin was reviewed and was less than 6. Repeat lactate was reviewed and was improving at2.1. 4-hour high-sensitivity troponin was reviewed and was less than 6. COVID- 19 PCR was reviewed and was negative. Influenza PCR was reviewedand was negative for influenza A and influenza B. RSV PCRwas reviewed and was negative. Labs: Laboratory Results - last 24 hr 01/02/25 01/02/25 01/02/25 19:55 21:49 23:41 WBC 14.2 H RBC 5.22 Hgb 13.5 Hct 42.2 MCV 80.8 L MCH 25.9 L MCHC 32.0 RDW Std Deviation 50.3 H RDW Coeff of Herberth 17.7 H Plt Count 343 MPV 10.1 Immature Gran % (Auto) 1.300 H Neut % (Auto) 83.5 H Lymph % (Auto) 10.5 L Logan % (Auto) 4.1 Eos % (Auto) 0.1 Baso % (Auto) 0.5 Absolute Neuts (auto) 11.9 H Absolute Lymphs (auto) 1.50 Nucleated RBC % 0 PT 13.0 INR 1.0 APTT 26.8 Sodium 135 Potassium 5.3 H Chloride 101 Carbon Dioxide 18.6 L Anion Gap 16 H BUN 12 Creatinine 0.83 Est GFR (MDRD) Non-Af 90 BUN/Creatinine Ratio 14.0 Glucose 129 H Lactic Acid 2.6 H* 2.1 H* Calcium 8.8 Total Bilirubin 0.42 AST 51 H ALT 32 Alkaline Phosphatase 99 Troponin T High Sens < 6 Troponin T Hi Sens 2 Hr < 6 Troponin T Hi Sens 4Hr < 6 NT pro BNP II 163 Total Protein 7.3 Albumin 3.8 Globulin 3.4 Albumin/Globulin Ratio 1.1 Urine Color Straw Urine Clarity Clear Urine pH 6.0 Ur Specific [place] 1.015 Urine Protein 30 H Urine Glucose (UA) Normal Urine Ketones Negative Urine Occult Blood Negative Urine Nitrite Negative Urine Bilirubin Negative Urine Urobilinogen Normal Ur Leukocyte Esterase Negative Urine RBC 0 SEEN Urine WBC 0-5 SEEN Ur Squamous Epith Cells 10-25 SEEN Urine Bacteria RARE Urine Mucus 0 SEEN Radiography Chest X-Ray - ED: 2 View, Read by ED Physician, Read by Radiologist and CHF (Vascular congestion) Diagnostic Testing: Clinical Impression(s) from Imaging Studies Brain CT 01/02/25 19:44 IMPRESSION: 1. No acute intracranial abnormality. 2. Sphenoid and maxillary sinus disease. Reading Location: [id number] Chest X-Ray 01/02/25 20:19 IMPRESSION: Increased interstitial markings with prominent cardiomediastinal silhouette, as may be seen with pulmonary edema. Reading Location: [id number] CT scan of the brain was obtained. There is no acute intracranial abnormality. There is sphenoid maxillary sinus congestion. This was interpreted by the radiologist and was also independently reviewed by myself. PA and lateral chest x-ray was obtained. There are 2 views. On my independent interpretation, lung bullard show vascular congestion. There is normal cardiac silhouette. Bony thorax is normal. There isno acute infiltrate noted. Radiologist also interpreted the x-ray and agrees. EKG Initial EKG: Attestation: I personally reviewed and interpreted this EKG as follows: Interpretation: Sinus Rhythm (88) and Non-Specific ST Changes Comments: EKG was obtained. On my independent interpretation, it showed anormal sinus rhythm with arate of 88. IA interval, QRS interval, and QTc intervals were all normal. [place] was normal. There are nonspecific ST-T wave changes. Prior EKG tracings: not available for review Prior: No Prior Treatment and Re-Evaluation Narrative: Because of the chest x-ray findings, patient is given a dose of Lasix. Patient was given a DuoNeb aerosol. Patient was advised of her findings. Patient was feeling better on reevaluation. Patient wants to go home. Patient was given a dose of Keflex here. Patient was given a prescription for Keflex.Patient was requesting a referral to a new primary care physician. Patient was given a referral to [facility]. Patient was instructed to follow-up in 5 to 7 days. Patient was instructedto return if worse in any way. Patient understood and was agreeable with the plan. All questions were answered. Discharge Plan Triage Chief Complaint: Lower Extremity Injury ED Provider: Cale Dolan Dx/Rx/DC Orders Clinical Impression: Cellulitis of right anterior lower leg, COPD (chronic obstructive pulmonary disease), Candidiasis of skin Instructions: ED Katie Skin Infection (Adult), ED Cellulitis Prescriptions: New cephalexin 500 mg capsule 500 mg PO Q6 Qty: 40 0RF No Action prednisone 20 mg tablet 60 mg PO DAILY Qty: 12 0RF albuterol sulfate [Ventolin HFA] 90 mcg/actuation HFA aerosol inhaler 2 puff inhalation Q4H PRN PRN (Reason: Wheezing) Qty: 1 0RF trazodone 50 mg tablet 50 mg PO QHS cetirizine 10 mg tablet 10 mg PO DAILY doxycycline monohydrate 100 mg capsule 100 mg PO BID pantoprazole 40 mg tablet,delayed release (DR/EC) 40 mg PO nystatin 100,000 unit/gram powder 1 applic topical TID celecoxib 100 mg capsule 100 mg PO DAILY risperidone 0.5 mg tablet 0.5 mg PO QHS omega-3 acid ethyl esters 1 gram capsule 1 cap PO DAILY venlafaxine 225 mg tablet extended release 24hr 225 mg PO DAILY Primary Care Provider: Addie Holley Referrals: Cale Moore MD [Med Staff - [facility]] - 5-7 Days Addie Holley DO [Primary Care Provider] - 5-7 Days Print Language: Angolan Disposition Disposition: Home, Self Care What to do if you have Problems For any increased pain, shortness of breath, bleeding, nausea or vomiting, chestpain, or any unexpected problems, contact your Primary Care Provider. Call [facility] ([phone]) or report tothe closest Emergency Room. Call 911 if necessary. 01/03/25 0043 Cosigner Signature (if applicable): CC: Dr. Addie Holley DO ~ Signed [facility]06-23-2025 Radiology Diagnostic study note [facility] Imaging Services [address] [place], [place] [id number] Chest PA and Lateral MR#: [id number] Acct: [id number] Name: CLAUDIA HEBERT Rep #: [id number] : 1980 F 44 From: Laney Stoddard MD PCP: Dr. Addie Holley DO Status: RE G ER Study:Chest PA and Lateral Date of Exam: 01/02/25 Exam# [id number] Ordering Dr: Cale Dolan DO PROCEDURE: CHEST PA AND LATERAL 01/02/2025 REASON FOR EXAM: COUGH TECHNIQUE: CHEST PA AND LATERAL COMPARISON: Chest radiograph on 07/11/2024 FINDINGS: Hardware: None Mediastinum: Prominent cardiomediastinal silhouette, unchanged. Lungs: No focal consolidation. Interstitial markings are increased. No definite pleural effusion. Bones: Degenerative changes are identified within the thoracic spine. RAD/Chest PA and Lateral IMPRESSION: Increased interstitial markings with prominent cardiomediastinal silhouette, as may be seen with pulmonary edema. Reading Location: [id number] CC: Dr. Cale Dolan DO; Dr. Addie Holley DO ~ Stone Rigger: Signed [facility]06-23-2025 Radiology Diagnostic study note [facility] Imaging Services [address] [place] [id number] Brain/Head without Contrast MR#: [id number] Acct: [id number] Name: CLAUDIA HEBERT Rep #: [id number] : 1980 F 44 From: Laney Stoddard MD PCP: Dr. Addie Holley DO Status: RE G ER Study:Brain/Head without Contrast Date of Exa m: 01/02/25 Exam# [id number] Ordering Dr: Cale Dolan DO PROCEDURE: BRAIN/HEAD WITHOUT CONTRAST 01/02/2025 REASON FOR EXAM: CONFUSION TECHNIQUE: BRAIN/HEAD WITHOUT CONTRAST Coronal and Sagittal reconstruction series were provided. One or more dose reduction techniques were used (e.g., Automated exposure control, adjustment of the mA and/or kV according to patient size, use of iterative reconstruction technique. RADIATION DOSE SUMMARY: CTDlvol: 45.0 mGy DLP: 914 mGycm COMPARISON: None FINDINGS: Brain: No acute intracranial hemorrhage, mass effect, or midline shift. Ochoa- white differentiation is maintained. The cerebellar tonsils extend to the level of the foramen magnum. CSF Spaces: Unremarkable for age Sinuses/Mastoids: Mild mucosal thickening in the maxillary sinuses. Near- complete opacification of the right sphenoid sinus there is under pneumatization of the mastoid air cells without significant effusion. Bones: Unremarkable CT/Brain/Head without Contrast IMPRESSION: 1. No acute intracranial abnormality. 2. Sphenoid and maxillary sinus disease. Reading Location: [facility] CC: Dr. Cale Dolan DO; Dr. Addie Holley DO ~ Stone Rigger: Signed [facility]06-23-2025 Discharge summary Author Cale Dolan [facility] Note Date/Time January 03, 2025 12:4 3am [facility] Medical Records Department [address] [place] [address] Emergency Department Summary 01/02/25 MR#: [id number] Acct: [id number] Name: CLAUDIA HEBERT Rep #:[id number] : 1980 44 From: Cale Charles PCP: Dr. Addie Holley DO Status:RE G ER Location: ED HPI History of Present Illness HPI Narrative: Patient presents with redness to her right lower leg that has been getting worseover the past week. Patient was seen at [place] emergency department for this. Patient was started on doxycycline. Patient also admits to a rash in her abdominal skin folds. Patient states she was given nystatin for this. Patient states the nystatin made this worse. Patient states she does not feel she is getting any better. Patient admits to some nausea but denies any vomiting. Family states patient appears to be more confused. Patient denies any fevers orchills. Patient denies any trauma or injury. Chief Complaint: Lower Extremity Injury Informant: patient Onset/Context/Timing Onset: Weeks (1) Context: Gradual Onset Timing: Continuous Location: Right lower leg Worsened by: Nothing Relieved by: Nothing Associated Symptoms Associated Symptoms: Negative for Parasthesia, Weakness or Loss of Funtion [facility] Medical History (Updated 01/03/25 @ 00:[address] Cale Dolan DO) Toxoplasmosis chorioretinitis COPD (chronic obstructive pulmonary disease) Asthma Home Medications ?Medication ?Instructions ?Recorded ?Last Taken ?Type albuterol sulfate 90 mcg/actuation 2 puff inhalation Q 4H PRN PRN 07/11/24 Unknown Rx aerosol inhaler (Ventolin HFA) Wheezing ##1 prednisone 20 mg tablet 60 mg (3 x 20 mg) PO DAILY # 12 07/11/24 Unknown Rx TABLETS celecoxib 100 mg capsule 100 mg PO DAILY 01/02/25 Unk nown History cetirizine 10 mg tablet 10 mg PO DAILY 01/02/25 Unkn own History doxycycline monohydrate 100 mg 100 mg PO BID 01/02/25 Unknown History capsule nystatin 100,000 unit/gram topical 1 applic topical TI D 01/02/25 Unknown History powder omega-3 acid ethyl esters 1 gram 1 cap PO DAILY Unknown History capsule pantoprazole 40 mg tablet,delayed 40 mg PO 01/02/25 Un known History release risperidone 0.5 mg tablet 0.5 mg PO QHS 01/02/25 Unkno wn History trazodone 50 mg tablet 50 mg PO QHS 01/02/25 Unknow n History venlafaxine 225 mg tablet,extended 225 mg PO DAILY Unknown History release 24 hr cephalexin 500 mg capsule 500 mg PO Q6 #40 CAPSULES Unknown Rx Allergy/AdvReac Type Severity Reaction Status Date / Time No Known Allergies Allergy Verified 01/02/25 17:48 Family History no significant family his Surgical History (Updated 01/02/25 @ 19:[address] Cale Dolan DO) Hx of cholecystectomy Hx of appendectomy Social History household members: friend(s) Smoking Status: Light Smoker (<10/day) ROS ROS ED Constitutional Constitutional ED: Denies chills or fever(s) Eyes Eyes: Denies blurry vision or change in vision ENT ENT ED: Denies rhinorrhea or sore throat Cardiovascular Cardiovascular: Denies chest pain or palpitations Respiratory/Chest Respiratory/Chest: Denies cough or dyspnea Gastrointestinal Gastrointestinal: Reports nausea; Denies vomiting Genitourinary Genitourinary ED: Denies dysuria or hematuria Musculoskeletal Musculoskeletal: Denies back pain or neck pain Integumentary Reports rash; Denies abscess Neurologic Neurologic: Denies headache(s) or weakness Allergic/Immunologic Allergic/Immunologic ED: Denies mouth swelling or urticaria EXAM Physical Exam Const Vital Signs: 01/02/25 17:47 01/02/25 17:56 01/02/25 18:56 Temperature 98.3 F 98.3 F 98.3 F Temperature Source Temporal Oral Oral Pulse Rate 89 89 89 Respiratory Rate 14 16 16 Respiratory Pattern Blood Pressure 161/96 H 161/96 H 149/72 H Blood Pressure Mean 117 117 97 Pulse Ox 98 98 100 Oxygen Delivery Method Room Air Room Air Room Air 01/02/25 20:00 01/02/25 21:00 01/02/25 22:00 Temperature 98.3 F 98.8 F 98.8 F Temperature Source Oral Oral Oral Pulse Rate 85 89 90 Respiratory Rate 20 H 20 H 20 H Respiratory Pattern Blood Pressure 154/76 H 149/80 H 128/73 H Blood Pressure Mean 102 103 91 Pulse Ox 94 94 94 Oxygen Delivery Method Room Air Room Air Room Air 01/02/25 22:11 01/02/25 23:00 01/03/25 00:00 Temperature 98.8 F 98.8 F Temperature Source Oral Oral Pulse Rate 90 83 83 Respiratory Rate 20 H 18 18 Respiratory Pattern Normal Blood Pressure 139/84 H 145/92 H Blood Pressure Mean 102 109 Pulse Ox 94 94 Oxygen Delivery Method Room Air Room Air Positive well nourished and well developed General Appearance ED: well developed and NAD HEENT Reports moist mucous membranes Neck full ROM and supple Resp normal respiratory effort and clear to auscultation bilaterally Cardio regular rate and regular rhythm GI non-distended Palpation: soft and tender RLQ Extremity Extremity Narrative: There are superficial wounds over the anterior aspect of the right lower leg. There is some erythema around this. There is no purulent discharge or drainage noted. There is no evidence of any abscess. There is no calf tenderness. Pedal pulses are equal bilaterally. Sensation was intact to light touch bilaterally in the lower extremities. Strength is 5/5 bilaterally in the lower extremities. Neuro oriented x3, CN's II-XII intact bilaterally, moves all extremities and no sensory deficits noted Sensorium / Orientation: alert Motor Exam: strength 5/5 throughout Psych mental status grossly normal MDM MDM MDM Narrative Medical decision making narrative: Differential diagnosis includes cellulitis, gastroenteritis, urinary tract infection, ureteral calculus, dehydration, electrolyte abnormality, cardiac dysrhythmia, cardiac ischemia, intracranial bleeding, and sepsis. CBC will be obtained to assess for leukocytosis and anemia. Comprehensive metabolic profilewill be obtained to assess for hepatic function, renal function, and electrolyteabnormality. Urinalysis will be obtained to assess for urinary tract infection and hematuria. Serum lactate will be obtained to assess for sepsis. PT with INR and PTT will be obtained to assess for coagulopathy. Chest x-ray will be obtained to assess for pneumonia and bronchitis. EKG will be obtained to assessfor cardiac dysrhythmia and cardiac ischemia. CT scan of the brain will be obtained to assess for intracranial bleeding. Blood cultures will be obtained to assess for sepsis. Urine culture will be obtained to assess for urinary tract infection. History & Record Review Additional record(s) reviewed:: Prior labs Lab Data Attestation: I reviewed the patient's lab results. Lab results narrative: CBC was reviewed. There is a mild leukocytosis of 14.2. The remainder is within normal limits. Comprehensive metabolic profile was reviewed. Potassium was slightly elevated at 5.3 but there was hemolysis noted. Glucose was mildly elevated at 129. CO2 was slightly low at 18.6. The remainder was essentially within normal limits. Serum lactate was reviewed and was slightly elevated at 2.6. High-sensitivity troponin was reviewed and was less than 6. BNP was reviewed and was normal at 163. Urinalysis was reviewed. There is no evidence of urinary tract infection or hematuria. 2-hour repeat high-sensitivity troponin was reviewed and was less than 6. Repeat lactate was reviewed and was improving at 2.1. 4-hour high-sensitivity troponin was reviewed and was less than 6. COVID-19 PCR was reviewed and was negative. Influenza PCR was reviewedand was negative for influenza A and influenza B. RSV PCR was reviewed and was negative. Labs: Laboratory Results - last 24 hr 01/02/25 01/02/25 01/02/25 19:55 21:49 23:41 WBC 14.2 H RBC 5.22 Hgb 13.5 Hct 42.2 MCV 80.8 L MCH 25.9 L MCHC 32.0 RDW Std Deviation 50.3 H RDW Coeff of Herberth 17.7 H Plt Count 343 MPV 10.1 Immature Gran % (Auto) 1.300 H Neut % (Auto) 83.5 H Lymph % (Auto) 10.5 L Logan % (Auto) 4.1 Eos % (Auto) 0.1 Baso % (Auto) 0.5 Absolute Neuts (auto) 11.9 H Absolute Lymphs (auto) 1.50 Nucleated RBC % 0 PT 13.0 INR 1.0 APTT 26.8 Sodium 135 Potassium 5.3 H Chloride 101 Carbon Dioxide 18.6 L Anion Gap 16 H BUN 12 Creatinine 0.83 Est GFR (MDRD) Non-Af 90 BUN/Creatinine Ratio 14.0 Glucose 129 H Lactic Acid 2.6 H* 2.1 H* Calcium 8.8 Total Bilirubin 0.42 AST 51 H ALT 32 Alkaline Phosphatase 99 Troponin T High Sens < 6 Troponin T Hi Sens 2 Hr < 6 Troponin T Hi Sens 4Hr < 6 NT pro BNP II 163 Total Protein 7.3 Albumin 3.8 Globulin 3.4 Albumin/Globulin Ratio 1.1 Urine Color Straw Urine Clarity Clear Urine pH 6.0 Ur Specific [place] 1.015 Urine Protein 30 H Urine Glucose (UA) Normal Urine Ketones Negative Urine Occult Blood Negative Urine Nitrite Negative Urine Bilirubin Negative Urine Urobilinogen Normal Ur Leukocyte Esterase Negative Urine RBC 0 SEEN Urine WBC 0-5 SEEN Ur Squamous Epith Cells 10-25 SEEN Urine Bacteria RARE Urine Mucus 0 SEEN Radiography Chest X-Ray - ED: 2 View, Read by ED Physician, Read by Radiologist and CHF (Vascular congestion) Diagnostic Testing: Clinical Impression(s) from Imaging Studies Brain CT 01/02/25 19:44 IMPRESSION: 1. No acute intracranial abnormality. 2. Sphenoid and maxillary sinus disease. Reading Location: [facility] Chest X-Ray 01/02/25 20:19 IMPRESSION: Increased interstitial markings with prominent cardiomediastinal silhouette, as may be seen with pulmonary edema. Reading Location: [facility] CT scan of the brain was obtained. There is no acute intracranial abnormality. There is sphenoid maxillary sinus congestion. This was interpreted by the radiologist and was also independently reviewed by myself. PA and lateral chest x-ray was obtained. There are 2 views. On my independent interpretation, lung bullard show vascular congestion. There is normal cardiac silhouette. Bony thorax is normal. There is no acute infiltrate noted. Radiologist also interpreted the x-ray and agrees. EKG Initial EKG: Attestation: I personally reviewed and interpreted this EKG as follows: Interpretation: Sinus Rhythm (88) and Non-Specific ST Changes Comments: EKG was obtained. On my independent interpretation, it showed anormal sinus rhythm with a rate of 88. IA interval, QRS interval, and QTc intervals were all normal. [place] was normal. There are nonspecific ST-T wave changes. Prior EKG tracings: not available for review Prior: No Prior Treatment and Re-Evaluation Narrative: Because of the chest x-ray findings, patient is given a dose of Lasix. Patient was given a DuoNeb aerosol. Patient was advised of her findings. Patient was feeling better on reevaluation. Patient wants to go home. Patient was given a dose of Keflex here. Patient was given a prescription for Keflex. Patient was requesting a referral to a new primary care physician. Patient was given a referral to [facility]. Patient was instructed to follow-up in 5 to 7 days. Patient was instructed to return if worse in any way. Patient understood and was agreeable with the plan. All questions were answered. Discharge Plan Triage Chief Complaint: Lower Extremity Injury ED Provider: Cale Dolan Dx/Rx/DC Orders Clinical Impression: Cellulitis of right anterior lower leg, COPD (chronic obstructive pulmonary disease), Candidiasis of skin Instructions: ED Aktie Skin Infection (Adult), ED Cellulitis Prescriptions: New cephalexin 500 mg capsule 500 mg PO Q6 Qty: 40 0RF No Action prednisone 20 mg tablet 60 mg PO DAILY Qty: 12 0RF albuterol sulfate [Ventolin HFA] 90 mcg/actuation HFA aerosol inhaler 2 puff inhalation Q4H PRN PRN (Reason: Wheezing) Qty: 1 0RF trazodone 50 mg tablet 50 mg PO QHS cetirizine 10 mg tablet 10 mg PO DAILY doxycycline monohydrate 100 mg capsule 100 mg PO BID pantoprazole 40 mg tablet,delayed release (DR/EC) 40 mg PO nystatin 100,000 unit/gram powder 1 applic topical TID celecoxib 100 mg capsule 100 mg PO DAILY risperidone 0.5 mg tablet 0.5 mg PO QHS omega-3 acid ethyl esters 1 gram capsule 1 cap PO DAILY venlafaxine 225 mg tablet extended release 24hr 225 mg PO DAILY Primary Care Provider: Addie Holley Referrals: Cale Moore MD [Med Staff - [facility]] - 5-7 Days Addie Holley DO [Primary Care Provider] - 5-7 Days Print Language: Angolan Disposition Disposition: Home, Self Care What to do if you have Problems For any increased pain, shortness of breath, bleeding, nausea or vomiting, chestpain, or any unexpected problems, contact your Primary Care Provider. Call [facility] ([phone]) or report to the closest Emergency Room. Call 911 if necessary. 01/03/25 0043 <Electronically signed by Cale Dolan DO> Cosigner Signature (if applicable): CC: Dr. Addie Holley, ~ Signed [facility] Work Phone: [phone] 256-151806-19-2025 [id number] (AGENT OF COVID-19) RNA: Not detected INFLUENZA A RNA: Not detected INFLUENZA B RNA: Not detected RESPIRATORY SYNCYTIAL VIRUS (RSV) RNA: Not detectedSt. Mary'S Regional Medical CenterComment on above:Performed By: #### [id number] ####[facility] LABCLIA [id number] [place] [address] [facility]06-18-2025 NoteHNO ID: [id number] Author: TAE TRIPLETT APRN.FIRE INVE[employer]IGATION MANAGER Service: ? Author Type: Nurse Practitioner Type: Progress Notes Filed: 12/28/2024 18:57 Note Text: [facility] Subjective Claudia Hebert is a 44 year old female. Patient presents with: Trauma: Right leg wound x 2 weeks Nausea x 1 week Sore under belly x 1 week Rash: - Pruritic rash on the leg, started oozing today. - Noticed bleeding after minor trauma to the area. - Edema present in the affected leg, more severe than the contralateral leg. Abdominal Swelling and Tenderness: - Abdominal swelling began last week, initially thought to be constipation. - Took stool softeners with minimal relief. - Describes abdominal swelling as yo-yoing, increasing and decreasing intermittently. - Noticed a hard, tender area in the abdomen; unsure if erythematous. - Denies similar abdominal firmness in the past. - Has an IUD in place. - Fell and landed directly on the abdomen two weeks ago; unsure if related to current symptoms. - Appendix has been removed. - Severe 9 out 10, pain worsened over last day. Dyspnea: - Experiencing dyspnea with minimal exertion, such as walking short distances. - Pain in the foot makes it difficult to walk; unable to wear compression socks due to pain. 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 Granados CHOLECYSTECTOMY HX ALLERGIES Patient has no known allergies. MEDICATIONS risperiDONE (RISPERDAL) 0.5 mg tablet Take 0.5 mg by mouth daily at bedtime. propranolol (INDERAL) 10 mg tablet TAKE 1 TABLET BY MOUTH TWICE DAILY and also TAKE 1 TABLET NEEDED FOR ANXIETY albuterol HFA (PROVENTIL HFA, VENTOLIN HFA) 90 mcg/actuation inhaler Albuterol Sulfate (Ventolin Hfa) 90 mcg/actuation HFA aerosol inhaler Active 2 NMA INHALATION EVERY 4 HOURS NEEDED as needed for Wheezing July 11, 2024 1:00am traZODone (DESYREL) 50 mg tablet Take 50 mg by mouth daily at bedtime. celecoxib (CELEBREX) 100 mg capsule Take 100 mg by mouth once daily. atorvastatin (LIPITOR) 10 mg tablet Take 10 mg by mouth once daily. Cetirizine (ZYRTEC) 10 mg cap Take by mouth. ADVAIR DISKUS 250-50 mcg/dose inhaler Inhale 1 Puff as instructed twice daily. ipratropium-albuterol (DUONEB) 0.5 mg-3 mg(2.5 mg base)/3 mL nebu Use twice daily scheduled and every 6 hours as needed for Shortness of breath omega-3 acid ethyl esters (LOVAZA) 1 gram capsule Take 1 g by mouth once daily. pantoprazole DR (PROTONIX) 40 mg tablet Take 40 mg by mouth every morning. predniSONE (DELTASONE) 20 mg tablet 60 mg. (Patient not taking: Reported on 12/28/2024) venlafaxine XR (EFFEXOR XR) 225 mg tablet Take 225 mg by mouth once daily. (Patient not taking: Reported on 12/28/2024) dextromethorphan-guaiFENesin (MUCINEX DM) 30-600 mg per tablet Take 1 tablet by mouth two times a day. (Patient not taking: Reported on 12/28/2024) FAMILY HISTORY Problem Relation Age of Onset No Ocular Disease No Family History Social History Tobacco Use Smoking status: Every Day Current packs/day: 1.50 Average packs/day: 1.5 packs/day for 15.0 years (22.5 ttl pk-yrs) Types: Cigarettes Passive exposure: Never Smokeless tobacco: Never Vaping Use Vaping status: Never Used Substance Use Topics Alcohol use: Yes Comment: rare Drug use: Never Physical Exam Vitals and nursing note reviewed. Constitutional: Appearance: Normal appearance. She is obese. Cardiovascular: Rate and Rhythm: Normal rate and regular rhythm. Heart sounds: Normal heart sounds. Pulmonary: Breath sounds: Normal breath sounds. Abdominal: General: There is distension. Palpations: There is no mass. Tenderness: There is abdominal tenderness. There is guarding. There is no right CVA tenderness or left CVA tenderness. Hernia: No hernia is present. Neurological: Mental Status: She is alert. 1. Edema, unspecified type (R60.9) - Significant edema noted in the lower extremities, with severe pain and difficulty ambulating. Cellulitis verses, Verses DVT, Verses contact dermatitis. - Recommended immediate evaluation in the emergency department for further imaging and assessment. 2. Generalized abdominal pain (R10.84) - Abdominal distensi (more content not included)...[facility] 12-28-2024 History of Present illness Narrative* Tae Triplett APRN.FIRE INVESTIGATION MANAGER - 12/28/2024 6:48 PM EDT [facility] Subjective Claudia Hebert is a 44 year old female. Patient presents with: Trauma: Right leg wound x 2 weeks Nausea x 1 week Sore under belly x 1 week Rash: - Pruritic rash on the leg, started oozing today. - Noticed bleeding after minor trauma to the area. - Edema present in the affected leg, more severe than the contralateral leg. Abdominal Swelling and Tenderness: - Abdominal swelling began last week, initially thought to be constipation. - Took stool softeners with minimal relief. - Describes abdominal swelling as yo-yoing, increasing and decreasing intermittently. - Noticed a hard, tender area in the abdomen; unsure if erythematous. - Denies similar abdominal firmness in the past. - Has an IUD in place. - Fell and landed directly on the abdomen two weeks ago; unsure if related to current symptoms. - Appendix has been removed. - Severe 9 out 10, pain worsened over last day. Dyspnea: - Experiencing dyspnea with minimal exertion, such as walking short distances. - Pain in the foot makes it difficult to walk; unable to wear compression socks due to pain. 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 Granados CHOLECYSTECTOMY HX ALLERGIES Patient has no known allergies. MEDICATIONS risperiDONE (RISPERDAL) 0.5 mg tablet Take 0.5 mg by mouth daily at bedtime. propranolol (INDERAL) 10 mg tablet TAKE 1 TABLET BY MOUTH TWICE DAILY and also TAKE 1 TABLET NEEDED FOR ANXIETY albuterol HFA (PROVENTIL HFA, VENTOLIN HFA) 90 mcg/actuation inhaler Albuterol Sulfate (Ventolin Hfa) 90 mcg/actuation HFA aerosol inhaler Active 2 NMA INHALATION EVERY 4 HOURS NEEDED as needed for Wheezing July 11, 2024 1:00am traZODone (DESYREL) 50 mg tablet Take 50 mg by mouth daily at bedtime. celecoxib (CELEBREX) 100 mg capsule Take 100 mg by mouth once daily. atorvastatin (LIPITOR) 10 mg tablet Take 10 mg by mouth once daily. Cetirizine (ZYRTEC) 10 mg cap Take by mouth. ADVAIR DISKUS 250-50 mcg/dose inhaler Inhale 1 Puff as instructed twice daily. ipratropium-albuterol (DUONEB) 0.5 mg-3 mg(2.5 mg base)/3 mL nebu Use twice daily scheduled and every 6 hours as needed for Shortness of breath omega-3 acid ethyl esters (LOVAZA) 1 gram capsule Take 1 g by mouth once daily. pantoprazole DR (PROTONIX) 40 mg tablet Take 40 mg by mouth every morning. predniSONE (DELTASONE) 20 mg tablet 60 mg. (Patient not taking: Reported on 12/28/2024) venlafaxine XR (EFFEXOR XR) 225 mg tablet Take 225 mg by mouth once daily. (Patient not taking: Reported on 12/28/2024) dextromethorphan-guaiFENesin (MUCINEX DM) 30-600 mg per tablet Take 1 tablet by mouth two times a day. (Patient not taking: Reported on 12/28/2024) FAMILY HISTORY Problem Relation Age of Onset No Ocular Disease No Family History Social History Tobacco Use Smoking status: Every Day Current packs/day: 1.50 Average packs/day: 1.5 packs/day for 15.0 years (22.5 ttl pk-yrs) Types: Cigarettes Passive exposure: Never Smokeless tobacco: Never Vaping Use Vaping status: Never Used Substance Use Topics Alcohol use: Yes Comment: rare Drug use: Never Physical Exam Vitals and nursing note reviewed. Constitutional: Appearance: Normal appearance. She is obese. Cardiovascular: Rate and Rhythm: Normal rate and regular rhythm. Heart sounds: Normal heart sounds. Pulmonary: Breath sounds: Normal breath sounds. Abdominal: General: There is distension. Palpations: There is no mass. Tenderness: There is abdominal tenderness. There is guarding. There is no right CVA tenderness or left CVA tenderness. Hernia: No hernia is present. Neurological: Mental Status: She is alert. 1. Edema, unspecified type (R60.9) - Significant edema noted in the lower extremities, with severe pain and difficulty ambulating. Cellulitis verses, Verses DVT, Verses contact dermatitis. - Recommended immediate evaluation in the emergency department for further imaging and assessment. 2. Generalized abdominal pain (R10.84) - Abdominal distension with fluctuating size, tenderness, and firmness noted on examination. - Significant guarding and tenderness on exam, need further work up. - Recent history of trauma from a fall two weeks ago. - Advised emergency department evaluation for imaging to rule out potential intra-abdominal pathology, including bowel obstruction. [facility] Telephone encounter Note * Telephone Encounter - Anneliese Echavarria MA - 12/12/2024 12:04 PM EDT [facility] Home Care Services Oxygen Order placed in Dr. Margaret bah folder to be signed. .Anneliese Echavarria MA [facility]06-02-2025 Miscellaneous Notes* Telephone Encounter - Anneliese Echavarria MA - 12/12/2024 12:04 PM EDT [facility] Home Care Services Oxygen Order placed in Dr. Margaret bah folder to be signed. .Anneliese Echavarria MA documented in this encounterPremier [facility]05-21-2025 NoteHNO ID: [id number] Author: LINNETTE SALGUERO PT Service: ? Author Type: Physical Therapist Type: Progress Notes Filed: 11/30/2024 18:11 Note Text: Episode Visit Count: 2 Therapist That Will Accept/Oversee The Plan Of Care: Dragan Dunbar Start of Care Date: 11/07/24 Onset Date: 07/13/08 Plan of Care Certification Date: 11/07/24 Next Certification Due Date: 01/06/25 [facility] PHYSICAL THERAPY RE-EVALUATION PLAN OF CARE UPDATE: Assessment: Claudia Hebert demonstrates difficulty with lifting, physical activities, recreational activities, reaching behind back, reaching overhead, and use hand with arm at shoulder level. The patient has progressed toward goals. Patient continues to present with impairments in ADL's, flexibility, independence in exercise, joint mobility, overall function, patient reported outcome measures, posture, range of motion, strength, and symptom management that interfere with reaching overhead, reaching behind back, use hand with arm at shoulder level, physical activities, recreational activities, lifting . Current prognosis is Fair due to: clinical presentation, chronic nature of impairments, coping skills, limited tolerance to activity, multiple co- morbidities . The patient will benefit from continued skilled therapy services to meet the updated goals for this plan of care as noted below. Goals for Episode of Care: established 11/07/24 Goals updated on 11/30/2024. Patient reported outcome of physical function and self-efficacy will increase T-score by a minimum 5 points. -- PROGRESSING [place] in home exercise program. -- MET Patient will decrease pain rating by 2 points to meet minimal clinical important difference for numeric pain rating scale. -- MET Patient will decrease pain to 2/10 with functional activities to allow patient to improve ADLs. -- MET Patient will increase active ROM of L shoulder to wnl, painfree AND symmetrical to allow pt to to improve postural alignment and to improve performance of ADLs. -- MET Patient will demonstrate increase in L shoulder AND B scap strength to 5/5 during manual muscle testing in order to improve function for basic self-care tasks, home management tasks, and prior functional tasks. -- PROGRESSING Improve postural awareness. -- PROGRESSING Patient Goals: get more motion Time Frame for Goals and Treatment : 01/06/25 Patient Goals: get more motion Planned Interventions, Frequency, and Duration: 1x/week, 8 weeks Total Number of Visits Planned: 8 (ins authorized 8 visits, will submit for more prn) Patient to be seen for Therapeutic exercise (39727), Manual therapy (84154), Therapeutic activities (83128), Patient/Family/Caregiver Education PLAN FOR NEXT VISIT: address L shoulder ROM AND strength, B scap strength AND posture SUBJECTIVE: Transfers from [place] for shoulder rehab. Pt. bought #3 dumbells to work on her shoulder. Shoulder pain is improving. Main problem is her legs.. Patient Goals: get more motion Functional Limitations: reaching overhead, reaching behind back, use hand with arm at shoulder level, physical activities, recreational activities, lifting Pain: Pain Pain Level: 0 Pain Location: Shoulder - Left, Scapula - Left, Upper Arm - Left Post Treatment Pain Post Treatment Pain Level: 8 Post Treatment Pain Location: Shoulder - Left Post Treatment Pain Description: Aching PROMIS Scales 11/06/2024 Higher is Better Phys Func - T Score 33 (moderate dysfunction) Phys Func - Percentile 4 Self-Eff Symptom - T Score 39 (Low) Self-Eff Symptom - Percentile 14 T-scores: mean of general population = 50. 5 points is clinically meaningfully difference Percentiles provide an indication of how the patient's score ranks in relation to the general population. Higher percentile rankings indicate better function/quality of life. 50th percentile is the average of the general population and indicates half of respondents had a worse score. OBJECTIVE MEASURES WITH LEVEL OF FUNCTION: Cervical Spine ROM Cervical Protrusion AROM: Moderate limitation Cervical Retraction AROM: Major limitation Cervical Flexion AROM: Normal Cervical Extension AROM: Major limitation Cervical Side-Bend Right AROM: Moderate limitation Cervical Side-Bend Left AROM: Moderate limitation Cervical Rotation Right AROM: Moderate limitation Cervical Rotation Left AROM: Moderate limitation UE AROM R Shoulder Flex: 171 Degrees R Shoulder ABduction: 178 Degrees L Shoulder Flex: 162 Degrees L Shoulder ABduction: 140 Degrees L Shoulder Internal Rotation (Functional): L1 L Shoulder External Rotation (Functional): occiput of the skull UE and Cervical Strength L Shoulder Flexion: 3+/5 L Shoulder Abduction (C5): 3+/5 TREATMENT: Therapeutic Exercise: 1: seated B scapular retraction 2x15 2: seated B scapular circles reverse and fwd 2x15 each 3: *Access Code: [email or web address] URL: https: (more content not included)...[facility]05-20-[facility]25 NoteHNO ID: [id number] Author: RAFA PARKS, SOFIA Service: ? Author Type: PIG LEAD MELTER HELPER Type: Progress Notes Filed: 11/29/2024 08:29 Note Text: 1. Toxoplasma chorioretinitis (Primary) Previously diagnosed () Acuity only affected in left eye with macular scarring/atrophy No current active Monitor 2. Regular astigmatism of both eyes 3. Presbyopia Finalized spec rx Follow-up in 1 year for complete with OCT prema Parks, OD November 29, 2024 8:27 [facility]05-20-2025 NoteDate of Procedure 11/28/2024. Chemical Engineering Technologist Information Treating Machine Operator: BP. Start time: 2:58 PM. Stop time: 2:58 PM. OCT Macula Interpretation Right Eye Normal without fluid. Left Eye Abnormal foveal contour. Findings include Atrophy. Interval Change Right Eye Initial. Left Eye Initial.[id number] History of Present illness Narrative* Charly Rafa G, OD - 11/29/2024 8:27 AM EDT 1. Toxoplasma chorioretinitis (Primary) Previously diagnosed () Acuity only affected in left eye with macular scarring/atrophy No current active Monitor 2. Regular astigmatism of both eyes 3. Presbyopia Finalized spec rx Follow-up in 1 year for complete with OCT mac Rafaleighton Parks, OD November 29, 2024 8:27 AM documented in this encounterPrem[facility]05-16-2025 NoteHNO ID: [id number] Author: OFELIA KEY LPN Service: ? Author Type: LICENSED NURSE Type: Progress Notes Filed: 11/25/2024 15:52 Note Text: ED Follow-Up Note Provider Action / FYI: Per pt she is feeling better. Per pt she is in the process of finding a new PCP that is closer to her. Ofelia Key LPN Call completed by: MIKY Patient seen in ED: In Network ED Contact made with Patient: Yes The patient was identified by Name and Date of . Discussed Care with: patient Patient was seen in the Emergency Department (ED) Location: [place] Date: 11/19/2024 Reason for ED Visit: Bilateral corneal abrasions ED Intervention: Fluorescein anesthetized with tetracaine Ciprofloxacin drops New Medications: Medication Changes: None Does patient understand medication changes: N/A Can patient afford medication changes: N/A Patient educated on worsening symptoms and when and where to seek additional care: No Patient Education Provided including treatment plan and new orders. Patient provided with appropriate counseling: [facility]05-16-2025 History of Present illness Narrative* Ofelia Key LPN - 11/25/2024 3:45 PM EDT ED Follow-Up Note Provider Action / FYI: Per pt she is feeling better. Per pt she is in the process of finding a new PCP that is closer to her. Ofelia Key LPN Call completed by: MIKY Patient seen in ED: In Network ED Contact made with Patient: Yes The patient was identified by Name and Date of . Discussed Care with: patient Patient was seen in the Emergency Department (ED) Location: Date: 11/19/2024 Reason for ED Visit: Bilateral corneal abrasions ED Intervention: Fluorescein anesthetized with tetracaine Ciprofloxacin drops New Medications: Medication Changes: None Does patient understand medication changes: N/A Can patient afford medication changes: N/A Patient educated on worsening symptoms and when and where to seek additional care: No Patient Education Provided including treatment plan and new orders. Patient provided with appropriate counseling: Yes documented in this encounterPrem[facility]05-16-2025 NotePatient Outreach (AGFAMPLE) CLAUDIA HEBERT ([id number]) 1980 F Date Time Provider Department 11/25/24 ADDIE HOLLEY During your visit today, we recorded the following information about you: Ofelia Key LPN 11/25/2024 3:52 PM Signed ED Follow-Up Note Provider Action / FYI: Per pt she is feeling better. Per pt she is in the process of finding a new PCP that is closer to her. Ofelia Key LPN Call completed by: MIKY Patient seen in ED: In Network ED Contact made with Patient: Yes The patient was identified by Name and Date of . Discussed Care with: patient Patient was seen in the Emergency Department (ED) Location: Date: 11/19/2024 Reason for ED Visit: Bilateral corneal abrasions ED Intervention: Fluorescein anesthetized with tetracaine Ciprofloxacin drops New Medications: Medication Changes: None Does patient understand medication changes: N/A Can patient afford medication changes: N/A Patient educated on worsening symptoms and when and where to seek additional care: No Patient Education Provided including treatment plan and new orders. Patient provided with appropriate counseling: Yes Allergies As of Date: 11/25/2024 (No Known Allergies) Date Reviewed: 09/26/2024 Reviewed by: Jourdan Alston MD - Fully Assessed Reason for Visit: ED Follow-up [821] Cmt: [facility] 11/19/2024 Prescriptions as of 11/25/2024 - traZODone (DESYREL) 50 mg tablet Take 50 mg by mouth daily at bedtime. - celecoxib (CELEBREX) 100 mg capsule Take 100 mg by mouth once daily. - atorvastatin (LIPITOR) 10 mg tablet Take 10 mg by mouth once daily. - venlafaxine XR (EFFEXOR XR) 225 mg tablet Take 225 mg by mouth once daily. - dextromethorphan-guaiFENesin (MUCINEX DM) 30-600 mg per tablet Take 1 tablet by mouth two times a day. - Cetirizine (ZYRTEC) 10 mg cap Take by mouth. - ADVAIR DISKUS 250-50 mcg/dose inhaler Inhale 1 Puff as instructed twice daily. - ipratropium-albuterol (DUONEB) 0.5 mg-3 mg(2.5 mg base)/3 mL nebu Use twice daily scheduled and every 6 hours as needed for Shortness of breath - omega-3 acid ethyl esters (LOVAZA) 1 gram capsule Take 1 g by mouth once daily. - pantoprazole DR (PROTONIX) 40 mg tablet Take 40 mg by mouth every morning. Problem List As Of Date 11/25/2024 Noted Resolved Acute appendicitis [K35.80] 12/26/2023 12/27/2023 Abdominal pain [R10.9] 12/26/2023 12/29/2023 Leukocytosis [D72.829] 12/26/2023 12/29/2023 Appendicitis, acute [K35.80] 12/26/2023 12/29/2023 Asthma without status asthmaticus [J45.909] 10/18/2021 Cellulitis [L03.90] 09/17/2022 Asthma with chronic obstructive pulmonary disea*10/18/2021 Gastroesophageal reflux disease [K21.9] 10/18/2021 Generalized anxiety disorder [F41.1] 10/18/2021 Hyperlipidemia [E78.5] 11/17/2022 Morbid obesity (HCC) [E66.01] 10/18/2021 BRITTANY (obstructive sleep apnea) [G47.33] 10/18/2021 Nicotine use disorder, F17.2 [F17.200] 12/27/2023 BMI 60.0-69.9, adult (HCC) [Z68.44] 12/27/2023 History of laparoscopic appendectomy [Z90.49] 12/27/2023 12/29/2023 Acute respiratory failure with hypoxia (HCC) [J*12/27/2023 12/29/2023 Tobacco abuse [Z72.0] 12/27/2023 Atelectasis [J98.11] 12/27/2023 Acute appendicitis with generalized peritonitis*12/29/2023 Right lower quadrant abdominal pain [R10.31] 12/29/2023 Chronic left shoulder pain [M25.512, G89.29] 11/07/2024 Encounter Status:Closed by OFELIA KEY on 11/25/24[facility] 11-19-2024 Discharge summary [facility] Medical Records Department [address] [place] [address] Emergency Department Summary 11/19/24 MR#: [id number] Acct: [id number] Name: CLAUDIA HEBERT Rep #:[id number] : 1980 44 From: Froylan Palmer MD PCP: Dr. Addie Holley, DO Status:RE G ER Location: ED HPI History of Present Illness Chief Complaint: Eye Problem Detail of Chief Complaint: Drainage from eye, pain, itching Informant: patient Onset/Context/Timing Location: Left Eye Onset: Weeks (1 week ago.) Context: Sudden Onset Timing: Continuous Current Severity: Mild Maximum Severity: Moderate Worsened by: Itching, light Relieved by: Nothing Associated Symptoms Associated Symptoms - Eyes: Burning, Drainage, Eyelid swelling, Foreign body sensation, Itching, Pain and Redness Visual Changes: bilateral: Blurred vision History of injury: No Visual correction: None Narrative Narrative: Patient is a 44-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 [facility] told there was nothing that could be done. She presents because of eye pain, redness, drainage, itching and foreign body sensation. She also reports light sensitivity. She denies direct or indirect trauma. She denies double vision, loss of vision. She denies rhinorr hea, congestion postnasal drainage. She denies headache. Prior similar symptoms: No Recent Illness[facility]ospital[facility] Medical History (Updated 11/19/24 @ 22:[address] Froylan Palmer MD) Toxoplasmosis chorioretinitis COPD (chronic obstructive pulmonary disease) Asthma Home Medications ?Medication ?Instructions ?Recorded ?Last Taken ?Type albuterol sulfate 90 mcg/actuation 2 puff inhalation Q 4H PRN PRN 07/11/24 Unknown Rx aerosol inhaler (Ventolin HFA) Wheezing ##1 prednisone 20 mg tablet 60 mg (3 x 20 mg) PO DAILY # 12 07/11/24 Unknown Rx TABLETS Allergy/AdvReac Type Severity Reaction Status Date / Time No Known Allergies Allergy Verified 11/19/24 20:36 Social History household members: friend(s) Smoking Status: Heavy Smoker (>10/day) ROS ROS ED Constitutional Constitutional ED: Denies chills, fever(s), subjective or sweats Eyes Eyes: Reports change in vision bilateral and other Details: No loss of vision orvisual field cuts. ; Denies diplopia ENT ENT ED: Denies ear pain, rhinorrhea or sore throat Respiratory/Chest Respiratory/Chest: Denies cough or dyspnea Gastrointestinal Gastrointestinal: Denies nausea or vomiting Hematologic/Lymphatic Hematologic/Lymphatic: Denies easy bleeding or easy bruising EXAM Physical Exam Const Vital Signs: 11/19/24 20:35 Temperature 98.5 F Temperature Source Oral Pulse Rate 88 Respiratory Rate 20 H Blood Pressure 161/71 H Blood Pressure Mean 101 Pulse Ox 94 Oxygen Delivery Method Room Air Positive well nourished, well developed and unkempt Constitutional Narrative: BMI is 63.5. General Appearance ED: unkempt and well developed HEENT Reports other atraumatic and other Nose: external nose normal and nares normal Eyes Eyes Narrative: Patient has floppy eyelid syndrome. Patient's sclera are injected bilaterally. The conjunctive is slightly injected. There is a slightly cloudy drainage noted. There appears to be a foreign body thatis visible left eye. There is no APD. There is no subconjunctival hemorrhage. Neck no lymphadenopathy, supple and no JVD Resp normal respiratory effort Cardio regular rate and regular rhythm Neuro oriented x3 and CN's II-XII intact bilaterally Sensorium / Orientation: alert Psych Psych Narrative: Normal Appearance: unkempt Skin no wounds Lesions: no lesions Rashes: no rashes MDM MDM MDM Narrative Medical decision making narrative: Tetracaine, fluorescein slit-lamp was ordered as well as visual acuity. As previously noted there appears to be a visible foreign body at 12:00 3 mm from the limbal border. Will have nurse check visual acuity, will anesthetize eye and stain with fluorescein and perform slit-lamp exam to determine if there is evidence of episcleritis, iritis etc. Visual acuity is 20/30 bilaterally, 20/30 right eye and 20/200 left. Patient states her left eye isher bad eye. Patient was stained with fluorescein anesthetized with tetracaine. Patient is noted to have multiple corneal abrasions bilaterally. There may be a small flapsuperiorly 2 to 3 mm from the limbal border at 12:00. There is no foreign body seen. There is no flare cells noted. Patient was treated with ciprofloxacin drops in the emergency department and while was dispensed. Discharge Plan Triage Chief Complaint: Eye Problem ED Provider: Froylan Palmer Dx/Rx/DC Orders Clinical Impression: Bilateral corneal abrasions, COPD (chronic obstructive pulmonary disease), Acute conjunctivitis of both eyes, Obstructive sleep apnea, Floppy eyelid syndrome of both eyes Instructions: ED Corneal Abrasion Prescriptions: No Action prednisone 20 mg tablet 60 mg PO DAILY Qty: 12 0RF albuterol sulfate [Ventolin HFA] 90 mcg/actuation HFA aerosol inhaler 2 puff inhalation Q4H PRN PRN (Reason: Wheezing) Qty: 1 0RF Primary Care Provider: Addie Holley Referrals: Wale Diallo MD [Med Staff - Active Staff] - 1-2 Days if not improving Care Physician,No Primary [Non-Staff] - Activity Restrictions/Additional Instructions: 1. Do not rub your eyes 2. Instill 1 drop of eyedrop every 2 hours while awake for the next 24 hours, then instill 1 drop every 4 hours while awake for the next 5 days. 3. If you are not better contact Dr. Cherrie Reed who is a local signals analyst. Print Language: Angolan Disposition Disposition: Home, Self Care What to do if you have Problems For any increased pain, shortness of breath, bleeding, nausea or vomiting, chestpain, or any unexpected problems, contact your Primary Care Provider. Call [facility] ([phone]) or report tothe closest Emergency Room. Call 911 if necessary. 11/19/242205 Cosigner Signature (if applicable): CC: Dr. Addie Holley, DO ~ Signed [facility]05-10-2025 Discharge summary Author Froylan Palmer [facility] Note Date/Time November 19, 2024 10:06 pm [facility] Medical Records Department [address] [place] [address] Emergency Department Summary 11/19/24 MR#: [id number] Acct: [id number] Name: CLAUDIA HEBERT Rep #:[id number] : 1980 44 From: Froylan Palmer MD PCP: Dr. Addie Holley, Status:RE G ER Location: ED HPI History of Present Illness Chief Complaint: Eye Problem Detail of Chief Complaint: Drainage from eye, pain, itching Informant: patient Onset/Context/Timing Location: Left Eye Onset: Weeks (1 week ago.) Context: Sudden Onset Timing: Continuous Current Severity: Mild Maximum Severity: Moderate Worsened by: Itching, light Relieved by: Nothing Associated Symptoms Associated Symptoms - Eyes: Burning, Drainage, Eyelid swelling, Foreign body sensation, Itching, Pain and Redness Visual Changes: bilateral: Blurred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 calcified stool that went into appendix, had appendectomy in November 2023 Antonina Leigh PT - 04/05/2024 6:58 EDT Subjective PT Diagnosis : impaired PFM strength and coordination, pain Antonina Leigh PT - 04/05/2024 6:58 EDT Precautions : No Orders Qualified Diagnosis : Reason for Visit: stress urinary incontinence, rectal incontinence Pain Present : Yes actual or suspected pain Attending Physician : Name: HEATHER CUTLER Chronicity of Condition PT : Chronic (greater than 3 months) Antonina eLigh PT 04/04/2024 17:58 EDT Past Medical History, Hospitalizations, Surgeries History of Problems, Comorbidities Rehab : PMHx: L shoulder injury, L knee injury, L hip pain, C-PAP machine, high cholesterol (managed with medicine), anxiety and depression, asthma, COPD History of Comorbidities,Personal Factor : 3-4 personal factors and/or comorbidities Rehab Problems and Meds Reviewed : Patient's problem and medication lists were reviewed Rehab Outpt Past Medical History : High Cholesterol Antonina Leigh PT 04/04/2024 17:58 EDT Pain Assessment Pain Location : Pelvic Self Report Pain : Numeric rating scale Numeric Pain Scale : 9 Numeric Pain Score : 9 Antonina Leigh PT 04/04/2024 17:58 EDT Home Environment Living Environment : Home Environment No qualifying data available Patient's Responsibilities Rehab : Unemployed Antonina Leigh PT 04/04/2024 17:58 EDT Home Environment II Living Environment : Home Environment No qualifying data available Antonina Leigh PT 04/04/2024 17:58 EDT Prior Functional Status ADL : Independent Mobility : Independent Instrumental ADL : Independent Cognitive-Communication Skills : Independent Antonina Leigh PT 04/04/2024 17:58 EDT Functional Outcome Measures Functional Outcome Measures - grid Activity 1 Test : Other: NIH-CPSI Score : 24 Comment : raw Antonina Leigh PT 04/05/2024 6:58 EDT Education *Barriers To Learning : None evident *Teaching Method : Demonstration, Explanation, Printed materials Patient Education - PT Outpatient : Self care Antonina Leigh PT 04/04/2024 17:58 EDT Falls and Education Assessment Prior Level of Functioning : No Deficits Does Patient Have Adequate Support System : Yes Signs/Symptoms of Abuse/Neglect : No Pt. Notified of Benefits and Risks of Therapy : Yes Treatment Plan Discussed with Patient : Yes Discuss Cancel/No Show Policy : Yes Antonina Leigh PT 04/05/2024 6:58 EDT Fall In The Past Year : Yes Number of Falls in the Past Year : 1 Injury Sustained From Fall : No Antonina Leigh PT 04/04/2024 17:58 EDT Assessment *Patient/Family Receptiveness : Fair *Rehabilitation Potential : Fair PT Clinical Assessment Summary : Patient spencer 43 y/o female presenting to skilled PFPT with a preforms laminator (Jasmin). She has been dealing with urinary retention, urinary frequency, straining with all BMand pain with intimacy that have progressively been worsening. Internal assessment deferred this date. Per subjective assessment, patient is likely suffering with pelvic floor weakness and impaired coordination that are leading to dysfunction. Patient is a good candidate for PFPT and seems motivated to reduce current symptoms and improve pelvic floor coordination, bladder control and improve QOL. Presentatio (more content not included)...[facility] 03-03-2024 NotePreprocedure Checklist Entered On: 02/24/2024 11:11 EDT Performed On: 02/26/2024 11:35 EDT by Pedro RUCKER, Marybeth Infection Screening Last Physical Overnight Location of the Patient : Personal Residence Discharge from Other Facility in past 4 weeks : No Travel outside [place] within past 21 days : No History of Recent Diarrhea : No Concern possible Infectious Disease : No Exposure AND/OR close contact with a person under investigation or laboratory-confirmed COVID-19 individual within 14 days of symptom onset AND/OR any of the following: : No Do you live/work in a high risk situation (congregated living, hemodialysis, infusion clinic, residential, assisted living, mcfp, homeless halfway, etc.)? : No Raphael Gomez RN - 02/26/2024 11:34 EDT Checklist Urine POC : Negative Urine QC : Pass Raphael Gomez RN - 03/03/2024 13:03 EDT NPO Since : 02/26/2024 08:20 EDT Last Void : 02/26/2024 10:30 EDT Last Food Intake : 02/25/2024 23:30 EDT Raphael Gomez RN - 02/26/2024 11:34 EDT Valuables Prechecklist Grid Valuables at Bedside Clothes : Slippers, Other: summer dress. (Comment: in liz locker [Raphael Gomez RN 02/26/2024 11:34 EDT] ) Raphael Gomez RN 02/26/2024 11:34 EDT Procedure Location : Surgery Raphael Gomez RN 02/26/2024 11:34 EDT Surgery Prep Grid Home Bowel Prep Complete : N/A Home CHG Prep Complete : N/A Inpatient PreSurgery Regular Shower/Bath : N/A Inpatient CHG Bath Complete within 12 hours : N/A CHG Cloth Prep in LIZ : Yes Makeup and Jewelry Removed : Yes Nail Chilean Removed : Yes Wearing Patient Gown/Street Clothes Removed : Yes Raphael Gomez RN - 02/26/2024 11:34 EDT Patient Rights Grid Anesthesia Consent Signed : Yes Surgical Consent Signed : Yes Raphael Gomez RN - 02/26/2024 11:34 EDT Procedure Checklist is completed for: : HYSTEROSCOPY D&C WITH MIRENA IUD PLACEMENT Marybeth Vasquez RN - 02/24/2024 11:10 EDT Allergy (As Of: 03/03/2024 13:04:08 EDT) Allergies (Active) No Known Allergies Estimated Onset Date: Unspecified ; Created By: Marybeth Vasquez RN; Reaction Status: Active ; Category: Drug ; Substance: No Known Allergies ; Type: Allergy ; Updated By: Marybeth Vasquez RN; Reviewed Date: 02/26/2024 11:37 EDT No Known Medication Allergies Estimated Onset Date: Unspecified ; Created By: Marybeth Vasquez RN; Reaction Status: Active ; Category: Drug ; Substance: No Known Medication Allergies ; Type: Allergy ; Updated By: Marybeth Vasquez RN; Reviewed Date: 02/26/2024 11:37 EDT Beta Cruz Beta Cruz History : Patient does not take a Beta Cruz Raphael Gomez RN 02/26/2024 11:34 EDT Protocols Patient Safety Grid ID Band on and Verified : Yes Fall Risk Aircraft Cabin Cleaner : Yes Current H&P in Medical Record : Yes (Comment: [Marybeth Vasquez RN - 02/24/2024 11:10 EDT] ) HCT : Yes HCG / UPREG : Yes (Comment: neg 02/26/24 [Raphael Gomez RN - 02/26/2024 11:34 EDT] ) Marybeth Vasquez RN - 02/26/2024 11:34 EDT Verification Sleep Apnea : Yes Prosthesis/Metal : na Pacemaker/AICD : na Preoperative Orders Complete : Yes Mode of Arrival : Wheelchair Raphael Gomez RN - 02/26/2024 11:34 EDT DCP GENERIC CODE H&P Update Within 24 hrs on New Admits : Yes KATTY Hose : No Sequential Compression Device : Yes Sleep Apnea : Yes CPAP / BiPAP Machine : Yes Electrical Safety Check Done : No Clipper Prep : Yes Family Waiting : Yes Can Surgeon Speak With Family : Yes Raphael Gomez RN - 02/26/2024 11:34 EDT Anesthesia/Transfusions Anesthesia/Transfusions : Prior anesthesia Accept Blood Products if Necessary : Yes Raphael Gomez RN - 02/26/2024 11:34 EDT Advance Directive Advanced Directives : No Advance Directive Additional Information : No Raphael Gomez RN - 02/26/2024 11:34 EDT Electronically Co-Signed by: Raphael Gomez RN on 03/03/2024 13:03 [facility]08-20-2024 NoteIMPRESSION: INCOMPLETE: NEED ADDITIONAL IMAGING EVALUATION Limited positioning due to the patient's physical status. No obvious abnormality. Ultrasound be performed for complaints of a palpable area RIGHT breast. LIMITED ULTRASOUND OF RIGHT BREAST: 03/01/2024 RESULT: No prior exams were available for comparison. Color flow and real-time ultrasound of the right breast 9 o'clock region were performed. Ochoa scale images of the real-time examination were reviewed. Ultrasound of the RIGHT breast palpable area noted by the patient is at the 9:00 region 5 cm the nipple and is located within the skin. It measures 5 x 4 x 1 mm. There is an echogenic area in it suggesting air. The patient states she repeatedly tries to pop the skin [place] and that it is not new. The appearance suggests a small sebaceous cyst. A similar appearance is noted at 9:00 10 cm from nipple measuring 5 x 4 x 1 cm, also felt to be a sebaceous cyst. The surrounding tissue is otherwise unremarkable. IMPRESSION: BENIGN 2 sebaceous cysts one of which is palpable according to the patient within the RIGHT breast. No suggestion of developing malignancy in either side. Limited positioning due to the patient's condition. Best obtainable films were submitted. Annual mammography is recommended or sooner if clinically indicated. The patient was informed of the findings and recommendations. There is no sonographic evidence of malignancy. A 1 year screening mammogram is recommended. Clark Sim M.D. FACR, [facility]/marcos:03/01/2024 09:25:26 Multiple national specialty organizations have released breast cancer screening guidelines for women at average risk for developing breast cancer - guidelines that are based on both evidence and opinion, yet differ on when to start and how often to screen for breast cancer. With representation from Breast Imaging, Internal Medicine, Women's Health, Family Medicine, and Medical/Surgical Oncology, the [facility] has carefully reviewed the data and reached the following consensus: 1) All women should engage in shared decision-making with their providers to decide when to start and how often to screen; 2) All women should have the opportunity to start screening mammography at age 40; 3) For women ages 45-55, we recommend annual screening mammograms; 4) For women ages 55 and over, we support both the transition from an annual to a biennial interval if this aligns more with patient's values and preferences, or continuation with annual screening; 5) All women should discuss with their providers when to stop screening mammograms. Ignition Mechanic(s): Jeffry [place], [facility]; RT Reagan(R)(M), [facility] OVERALL STUDY BIRADS: Category 2: Benign Stone Rigger: Marcos Transcribe Date/Time: Mar 01 2024 8:14A Dictated by : CLARK SIM MD This examination was interpreted and the report reviewed and electronically signed by: CLARK SIM MD on Mar 01 2024 9:25AM [facility] [id number] NoteIMPRESSION: INCOMPLETE: NEED ADDITIONAL IMAGING EVALUATION Limited positioning due to the patient's physical status. No obvious abnormality. Ultrasound be performed for complaints of a palpable area RIGHT breast. LIMITED ULTRASOUND OF RIGHT BREAST: 03/01/2024 RESULT: No prior exams were available for comparison. Color flow and real-time ultrasound of the right breast 9 o'clock region were performed. Ochoa scale images of the real-time examination were reviewed. Ultrasound of the RIGHT breast palpable area noted by the patient is at the 9:00 region 5 cm the nipple and is located within the skin. It measures 5 x 4 x 1 mm. There is an echogenic area in it suggesting air. The patient states she repeatedly tries to pop the skin [place] and that it is not new. The appearance suggests a small sebaceous cyst. A similar appearance is noted at 9:00 10 cm from nipple measuring 5 x 4 x 1 cm, also felt to be a sebaceous cyst. The surrounding tissue is otherwise unremarkable. IMPRESSION: BENIGN 2 sebaceous cysts one of which is palpable according to the patient within the RIGHT breast. No suggestion of developing malignancy in either side. Limited positioning due to the patient's condition. Best obtainable films were submitted. Annual mammography is recommended or sooner if clinically indicated. The patient was informed of the findings and recommendations. There is no sonographic evidence of malignancy. A 1 year screening mammogram is recommended. Clark Sim M.D. FACR, [facility]/marcos:03/01/2024 09:25:26 Multiple national specialty organizations have released breast cancer screening guidelines for women at average risk for developing breast cancer - guidelines that are based on both evidence and opinion, yet differ on when to start and how often to screen for breast cancer. With representation from Breast Imaging, Internal Medicine, Women's Health, Family Medicine, and Medical/Surgical Oncology, the [facility] has carefully reviewed the data and reached the following consensus: 1) All women should engage in shared decision-making with their providers to decide when to start and how often to screen; 2) All women should have the opportunity to start screening mammography at age 40; 3) For women ages 45-55, we recommend annual screening mammograms; 4) For women ages 55 and over, we support both the transition from an annual to a biennial interval if this aligns more with patient's values and preferences, or continuation with annual screening; 5) All women should discuss with their providers when to stop screening mammograms. Ignition Mechanic(s): Jeffry [place], [facility]; RT Reagan(R)(M), [facility] OVERALL STUDY BIRADS: Category 2: Benign Stone Rigger: Marcos Transcribe Date/Time: Mar 01 2024 8:14A Dictated by : CLARK SIM MD This examination was interpreted and the report reviewed and electronically signed by: CLARK SIM MD on Mar 01 2024 9:25AM EST [place] [id number] History of Present illness Narrative* Jeffry [place], CT - 03/01/2024 8:40 AM EDT Radiology Service Progress Note PATIENT NAME: Claudia Hebert DATE OF SERVICE: March 01, 2024 TIME: 9:13 AM PATIENT IDENTITY VERIFICATION COMPLETED USING TWO (2) IDENTIFIERS: Name and Date of confirmedby patient verbally and Name and Date of confirmed by identification band. FALL SCREENING: Has the patient had 2 falls in the last year or 1 fall with injury or currently using an Ambulatory Assistive Device (Walker, Cane, Wheelchair, Crutches, etc.)? No PATIENT GENDER DATA: Female. status: : No status: NO. PATIENT RELEVANT IMPLANT DATA REVIEWED: Not Applicable PATIENT PRESENTS WITH AN IMPLANTABLE OR ATTACHED COMBAT SYSTEMS OPERATOR: No RADIOLOGY DEPARTMENT: Ultrasound PERIPHERAL IV DATA: Not applicable SIGNED BY: EMMA Dutton March 01, 2024 9:13 AM documented in this encounterPrem[facility] NoteHNO ID: [id number] Author: JEFFRY [place] CT Service: Radiology Author Type: Technologist Type: Progress Notes Filed: 03/01/2024 09:14 Note Text: Radiology Service Progress Note PATIENT NAME: Claudia Hebert DATE OF SERVICE: March 01, 2024 TIME: 9:13 AM PATIENT IDENTITY VERIFICATION COMPLETED USING TWO (2) IDENTIFIERS: Name and Date of confirmed by patient verbally and Name and Date of confirmed by identification band. FALL SCREENING: Has the patient had 2 falls in the last year or 1 fall with injury or currently using an Ambulatory Assistive Device (Walker, Cane, Wheelchair, Crutches, etc.)? No PATIENT GENDER DATA: Female. status: : No status: NO. PATIENT RELEVANT IMPLANT DATA REVIEWED: Not Applicable PATIENT PRESENTS WITH AN IMPLANTABLE OR ATTACHED COMBAT SYSTEMS OPERATOR: No RADIOLOGY DEPARTMENT: Ultrasound PERIPHERAL IV DATA: Not applicable SIGNED BY: EMMA Dutton March 01, 2024 9:13 [facility] [id number] History of Present illness Narrative* Lucy Moore CT - 03/01/2024 8:20 AM EDT Radiology Service Progress Note PATIENT NAME: Claudia Hebert DATE OF SERVICE: March 01, 2024 TIME: 8:50 AM PATIENT IDENTITY VERIFICATION COMPLETED USING TWO (2) IDENTIFIERS: Name and Date of confirmedby patient verbally. FALL SCREENING: Has the patient had 2 falls in the last year or 1 fall with injury or currently using an Ambulatory Assistive Device (Walker, Cane, Wheelchair, Crutches, etc.)? No PATIENT GENDER DATA: Female. status: : No status: NO. PATIENT RELEVANT IMPLANT DATA REVIEWED: Not Applicable PATIENT PRESENTS WITH AN IMPLANTABLE OR ATTACHED COMBAT SYSTEMS OPERATOR: No RADIOLOGY DEPARTMENT: Mammography PERIPHERAL IV DATA: Not applicable SIGNED BY: EMMA Kirk March 01, 2024 8:50 AM documented in this encounterPrem[facility]-2024 NoteHNO ID: [id number] Author: LUCY MOORE CT Service: Radiology Author Type: Technologist Type: Progress Notes Filed: 03/01/2024 08:51 Note Text: Radiology Service Progress Note PATIENT NAME: Claudia Hebert DATE OF SERVICE: March 01, 2024 TIME: 8:50 AM PATIENT IDENTITY VERIFICATION COMPLETED USING TWO (2) IDENTIFIERS: Name and Date of confirmed by patient verbally. FALL SCREENING: Has the patient had 2 falls in the last year or 1 fall with injury or currently using an Ambulatory Assistive Device (Walker, Cane, Wheelchair, Crutches, etc.)? No PATIENT GENDER DATA: Female. status: : No status: NO. PATIENT RELEVANT IMPLANT DATA REVIEWED: Not Applicable PATIENT PRESENTS WITH AN IMPLANTABLE OR ATTACHED COMBAT SYSTEMS OPERATOR: No RADIOLOGY DEPARTMENT: Mammography PERIPHERAL IV DATA: Not applicable SIGNED BY: EMMA Kirk March 01, 2024 8:50 [facility]rem[facility] [id number] NotePatient Education Material [facility] Adult Home Going Instructions Following Surgery with Anesthesia After surgery you will be allowed to go home when you are awake, stable, taking fluids well, and without complications. The anesthesia medications used during surgery may cause you to feel dizzy, weak, or drowsy for up to 24 hours. For your safety, during the first 24 hours following an anesthetic: ? Have a responsible adult with you ? DO NOT drive a car, operate machinery, or use power tools ? DO NOT take public transportation if you are alone ? DO NOT drink alcohol, including beer or wine ? DO NOT sign important papers or make important decisions ? DO NOT take medication that has not been prescribed by your care provider ? Only take [id number] or prescription medications as directed ? Slowly resume diet ? Activity as directed by your surgeon ? Use extra care climbing stairs or walking with crutches If you have questions or problems that seem to be related to the anesthetic, call the hospital at [phone] and ask for the SHOWROOM CONSULTANT heating worker or anesthesiologist. Thank you for the privilege and opportunity to participate in your care. We wish you good health, Your Anesthesia Team General Information & when to contact the surgeon: ? If you experience nausea and vomiting, eat clear soups, mild foods, and liquids for up to 12-48 hours until symptoms of nausea and vomiting are gone. Do not smoke. Call the surgeon for uncontrollednausea and vomiting. ? Pain does not mean that something is wrong, or the surgery did not go well. Do not wait until thepain gets bad to start taking pain medication. Increase activity each day as directed by surgeon asthis increases blood flow to promote healing. Take short walks, rest when feeling tired. Do not move quickly or lift anything heavy until you feel better. Call the surgeon if pain gets worse or is not controlled by the medicine. ? Perform coughing and deep breathing while splinting your incision as demonstrated by your nurse. This will prevent pneumonia. ? Drink throughout the day and avoid alcohol or excessive caffeine to prevent difficulty urinating.If you cannot urinate for 8 hours or if it becomes painful, contact the surgeon as soon as possible. ? It is common to have some minor bleeding, however, if you have bleeding that starts again, gets worse such as soaking bandages over 2-4 hours, call the surgeon as soon as possible. If uncontrollable, call 911. ? Contact the surgeon as soon as possible or seek medical attention with signs of infection that include fever of 101 F (38 C), increased pain, swelling, warmth or redness in the surgical area, red streaks leading from the area, pus or foul-smelling drainage coming from the wound. IF AN EMERGENCY DEVELOPS AND YOU ARE UNABLE TO REACH YOUR DOCTOR, GO TO THE NEAREST EMERGENCY DEPARTMENT OR CALL 911. SEEK IMMEDIATE MEDICAL CARE IF YOU: ? Develop a rash ? Have difficulty breathing ? Have chest pain Think you are having an allergic reaction Rev: 2020__ Labs, Tests and X-Rays Hysteroscopy With Dilation and Curettage: What to Expect at Home Your Recovery For a hysteroscopy, your doctor guides a lighted tube through your cervix and into your uterus. This helps the doctor see inside your uterus. For a dilation and curettage (D&C), your doctor uses a curved tool, called a curette, to gentlyscrape tissue from your uterus. After these procedures, you are likely to have a backache or cramps similar to menstrual cramps. Expect to pass small clots of blood from your vagina for the first few days. You may have light vaginal bleeding for several weeks after the D&C. If the doctor filled your uterus with air, your belly may feel full. You may also have shoulder pain right after the procedure. You will probably be able to go back to most of your normal activities in 1 or 2 days. This care sheet gives you a general idea about how long it will take for you to recover. But each person recovers at a different pace. Follow the steps below to get better as quickly as possible. How can you care for yourself at home? Activity ? Rest when you feel tired. ? You will probably be able to return to work the day after the procedure. But it depends on what was done and the type of work you do. ? You may have some light vaginal bleeding. Use sanitary pads until you stop bleeding. Using pads makes it easier to monitor your bleeding. Do not rinse your vagina with fluid (douche). ? Ask your doctor when it is okay for you to have sex. Diet ? You can eat your normal diet. If your stomach is upset, try bland, low-fat foods like plain rice,broiled chicken, toast, and yogurt. ? Drink plenty of fluids (unless your doctor tells you not to). Medicines ? Your doctor will tell you if and when you can restart your medicines. You will also get instructions about taking any new medicines. ? If you take asp (more content not included)...[facility] 02-26-2024 NotePAA Education Entered On: 02/26/2024 11:40 EDT Performed On: 02/26/2024 11:40 EDT by Raphael Gomez RN / Required Barriers to Learning : None evident TeachBack Methodology : Tien Jacobo RN, Rajvir - 02/26/2024 11:40 EDT Pain Pain Education Topics Grid Pain Assessment Schedule : Verbalizes understanding Pain Assessment Tool : Verbalizes understanding Pain Can Be Managed/Relieved : Verbalizes understanding Raphael Gomez RN - [facility]2024 [facility] Education Entered On: 02/24/2024 11:08 EDT Performed On: 02/23/2024 15:30 EDT by Marybeth Vasquez RN / Candis Responsible Learner/s Present : Spoke to patient and friend by phone. Barriers to Learning : None evident TeachBack Methodology : Tien Jacobo RN, Jeannine - 02/24/2024 11:09 EDT Topic Specific Education Health Maintenance GRID Bathing/Hygiene : Verbalizes understanding Marybeth Vasquez RN - 02/24/2024 11:09 EDT Education Medication Management GRID Correct Self-Administration : Verbalizes understanding Marybeth Vasquez RN - 02/24/2024 11:09 EDT Infection Control Education Dialysis Surgery - Hospital form # [id number] : Needs further teaching Marybeth Vasquez RN - 02/24/2024 11:09 EDT Pre Procedure / Surgery Education Procedures Tests Exams GRID Anesthesia/Sedation : Verbalizes understanding (Comment: Denies personal or family history of anesthesai reactions. [Marybeth Vasquez RN - 02/24/2024 11:07 EDT] ) NPO : Verbalizes understanding Preoperative Instructions : Verbalizes understanding Preprocedure Diet : Verbalizes understanding Marybeth Vasquez RN - 02/24/2024 11:09 [facility] 02-18-2024 History of Present illness Narrative* Giovanny Granados MD - 02/18/2024 1:01 PM EDT Subjective: Patient is status post a laparoscopic appendectomy on 12/26/2023. Pathology report showed a fecalith. She presents today concerned about her umbilical incision. Objective:Blood pressure 138/64, pulse 93, height 152.4 cm (5'), weight (!) 137.9 kg (304 lb), lastmenstrual period 09/14/2023, SpO2 97%. Local incision is scabbing no signs of open wound. Minimal tenderness to the area. Objective: Aftercare Plan: Anticipate this umbilical incision to continue to heal gradually increase her activities she can follow-up with me on an as-needed basis documented [facility] Reason for visit Narrative* Outpatient Procedure (Routine) - Closed Specialty Diagnoses / Procedures Referred By Contac t Referred To Contact Radiology / [facility] Diagnoses Mastodynia Order will be faxed on 01/29/2024 per Melly mammogram diagnositic bilateral, n64.4 US breast L side, Ordering: Vidya Sung NP Procedures DIAGNOSTIC MAMMOGRAPHY COMPUTER-AIDED DETCJ UNI MAMMOGRAM DIAGNOSTIC Vidya Sung, FIRE INVESTIGATION MANAGER [address] [place] [address] Radio Mammo [facility] [address] [place] [address] Referral ID Status Reason Start Date Expiration Date Visits Re quested Visits Authorized [id number] Closed 07/13/2023 07/12/2024 2 2 [facility]06-[facility] History of Present illness Narrative* Giovanny Granados MD - 01/05/2024 3:04 PM EDT Subjective: Patient is status post a laparoscopic appendectomy on 12/27/2023. Pathology report FINAL DIAGNOSIS A. Appendix, appendectomy: -Dilated appendix filled with densely packed fecalith with patchy calcification -No evidence of acute appendicitis Patient states that she is doing well pain is controlled moving her bowels she occasionally will get short of breath when she is hot Objective:Last menstrual period 09/14/2023. Incisions are healing well no signs of cellulitis or infection Assessment: Aftercare Plan: At this point I have no restrictions for her she can gradually increase her activity as she sees fit follow-up with me on an as-needed basis documented in this encounterPrem[facility]06-[facility] History of Present illness Narrative* Ofelia Lopez CT - 12/26/2023 4:57 PM EDT Radiology Service Progress Note DATE OF SERVICE: December 26, 2023 TIME: 4:57 PM PATIENT IDENTITY VERIFICATION COMPLETED USING TWO (2) STANDARD IDENTIFIERS: Name and Date of confirmed by patient verbally. FALL SCREENING: Has the patient had 2 falls in the last year or 1 fall with injury or currently using an Ambulatory Assistive Device (Walker, Cane, Wheelchair, Crutches, etc.)? Emergency Room Patient: Screened in ED PATIENT GENDER DATA: Female. status: : No status: NO. PATIENT RELEVANT IMPLANT DATA REVIEWED: Not Applicable PATIENT PRESENTS WITH AN IMPLANTABLE OR ATTACHED COMBAT SYSTEMS OPERATOR: No ALLERGIES: Reviewed and unchanged CONTRAST ALLERGY: NO. EXAM: CT -CONTRAST INDUCED NEPHROPATHY RISK FACTORS: Not applicable CREATININE: Creatinine Date Value Ref Range Status 12/26/2023 0.62 0.58 - 0.96 mg/dL Final 09/01/2023 0.54 (L) 0.58 - 0.96 mg/dL Final 05/15/2022 0.57 (L) 0.58 - 0.96 mg/dL Final Estimated Glomerular Filtration Rate Date Value Ref Range Status 12/26/2023 115 >=60 mL/min/1.73m Final Comment: Estimated Glomerular Filtration Rate (eGFR) is calculated using the 2020 CKD-EPI creatinine equation. This equation utilizes serum creatinine, sex, and age as parameters. The creatinine assay has traceable calibration to isotope dilution- mass spectrometry. Refer to KDIGO guidelines for clinical interpretation. In patients with unstable renal function, e.g. those with acute kidney injury, the eGFRmay not accurately reflect actual GFR. P.O.C.T. RESULTS: N/A December 26, 2023 TREATMENT: N/A PERIPHERAL IV DATA: Inpatient - refer to LDA documentation RADIOLOGY DEPARTMENT: CT; Exam(s) Completed: Abdomen/Pelvis SIGNATURE: EMMA Luna PATIENT NAME: Claudia Hebert DATE: December 26, 2023 TIME: 4:57 PM documented in this encounterPrem[facility]06-[facility] History of Present illness Narrative* Yahaira MotleyFERNANDO.FIRE INVESTIGATION MANAGER - 12/26/2023 1:59 PM EDT Subjective The history is provided by the patient. No machining supervisor was used. Abdominal Pain This is a new problem. Episode onset: 5 days ago. The problem occurs constantly. The problem has been gradually worsening. The quality of the pain is sharp. The pain is at a severity of 8/10. Associated symptoms include nausea (today), vomiting (once this am), dysuria and frequency (states chronic,not worse than normal). Pertinent negatives include fever, diarrhea and hematuria. Nothing aggravates the symptoms. Nothing (tried heating pad, naproxen and advil) relieves the symptoms. Past workup includes surgery (gallbladder removed). Her past medical history is significant for GERD. Her past medical history does not include PUD, ulcerative colitis, Crohn's disease or irritable bowel syndrome. Review of Systems Constitutional: Positive for fatigue. Negative for chills and fever. Respiratory: Positive for shortness of breath (hx of asthma, not worse than normal) and wheezing (hx of asthma, not worse than normal). Gastrointestinal: Positive for abdominal pain, nausea (today) and vomiting (once this am). Negativefor abdominal distention and diarrhea. C/o right side pain x 5 days that is worsening. Genitourinary: Positive for dysuria and frequency (states chronic, not worse than normal). Negativefor hematuria, urgency and vaginal discharge. LMP - 11/24 Denies hx of frequent UTI's or kidney stones. Neurological: Positive for dizziness. FLUoxetine 10 mg tablet TAKE ONE TABLET BY MOUTH ONE TIME DAILY IN THE MORNING pantoprazole DR (PROTONIX) 40 mg tablet Take 40 mg by mouth every morning. dextromethorphan-guaiFENesin (MUCINEX DM) 30-600 mg per tablet Take 1 tablet by mouth two times a day. atomoxetine (STRATTERA) 25 mg capsule Take 25 mg by mouth once daily. (Patient not taking: Reportedon 12/26/2023) PROAIR HFA 90 mcg/actuation inhaler Inhale 2 Puffs as instructed four times daily as needed. VRAYLAR 1.5 mg capsule TAKE ONE CAPSULE BY MOUTH ONE TIME DAILY AFTER DINNER (Patient not taking: Reported on 12/26/2023) Cetirizine (ZYRTEC) 10 mg cap Take by mouth. clonazePAM (KLONOPIN) 0.5 mg tablet Take 0.5 mg by mouth twice daily. ergocalciferol 50,000 unit capsule (VITAMIN D2, DRISDOL) ferrous sulfate 325 mg (65 mg iron) tablet Take by mouth. ADVAIR DISKUS 250-50 mcg/dose inhaler Inhale 1 Puff as instructed twice daily. ipratropium-albuterol (DUONEB) 0.5 mg-3 mg(2.5 mg base)/3 mL nebu Use twice daily scheduled and every 6 hours as needed for Shortness of breath omega-3 acid ethyl esters (LOVAZA) 1 gram capsule Take 1 g by mouth once daily. ALLERGIES No Known Allergies There is no problem list on file for this patient. Physical Exam Vitals and nursing note reviewed. Constitutional: Appearance: She is ill-appearing. She is not toxic-appearing. Cardiovascular: Rate and Rhythm: Normal rate. Pulmonary: Effort: Pulmonary effort is normal. No accessory muscle usage, respiratory distress or retractions. Abdominal: General: Bowel sounds are normal. Palpations: Abdomen is not rigid. Tenderness: There is abdominal tenderness in the right upper quadrant and left upper quadrant. There is guarding. There is no right CVA tenderness, left CVA tenderness or rebound. Skin: General: Skin is warm and dry. Capillary Refill: Capillary refill takes less than 2 seconds. Neurological: Mental Status: She is alert and oriented to person, place, and time. BP 130/85 Pulse 89 Temp 36.7 C (98 F) (Tympanic) Resp 22 LMP 09/14/2023 (Approximate) SpO2 93% ASSESSMENT/PLAN: Encounter Diagnosis ICD-10-CM 1. Right upper quadrant abdominal pain R10.11 2. Left upper quadrant abdominal pain R10.12 3. Dysuria R30.0 UA DIP, URINE (POC) 4. Nausea R11.0 5. Dizziness R42 Results for orders placed or performed in visit on 12/26/23 UA DIP, URINE (POC) Result Value Ref Range GLUCOSE UA (POCT) Negative Negative mg/dL BILIRUBIN UA (POCT) Negative Negative KETONE UA (POCT) Negative Negative mg/dL SPECIFIC GRAVITY UA (POCT) 1.020 1.005 - 1.030 HEMOGLOBIN/BLOOD UA (POCT) Negative Negative PH UA (POCT) 7.0 4.5 - 8.0 PROTEIN UA (POCT) 30 (A) Negative mg/dL UROBILINOGEN UA (POCT) 1.0 Normal E.U./dL NITRITE UA (POCT) Negative Negative LEUKOCYTES UA (POCT) Negative Negative COLOR UA (POCT) Dark yellow CLARITY UA (POCT) Slightly Cloudy - Transferred to ED for further work - up and treatment. - Report called to ED. - Pt agreeable with plan. Yahaira Motley APRN.ADONSI documented in this encounterPrem[facility]03-13-2024 History of Present illness Narrative* Rosita Rich APRN.CNP - 09/23/2023 3:56 PM EDT Images from the original note were not included. [facility] PATIENT NAME: Claudia Hebert DATE OF : 1980 TODAYS' DATE: 09/23/2023 Subjective: Ms. Hebert is a 43 year old female Patient presents with: Cough: Cough chest congestion History of Present Illness: The history is provided by the patient. No machining supervisor was used. Cough This is a new problem. The current episode started 2 days ago. The problem occurs constantly. The problem has not changed since onset.The cough is Productive of sputum. There has been no fever. Associated symptoms include rhinorrhea and sore throat. Pertinent negatives include no chills, no sweats,no ear congestion, no ear pain, no headaches, no myalgias, no shortness of breath and no wheezing. Associated symptoms comments: +sick contacts- girlfriend is sick . Treatments tried: Robutussin. Sheis not a smoker. Her past medical history does not include asthma. Review of Systems: Review of Systems Constitutional: Negative for chills and fever. HENT: Positive for congestion, rhinorrhea and sore throat. Negative for ear pain. Respiratory: Positive for cough. Negative for shortness of breath and wheezing. Gastrointestinal: Negative for diarrhea, nausea and vomiting. Musculoskeletal: Negative for myalgias. Neurological: Negative for headaches. Allergies: Allergies: No Known Allergies Past Medical History: No past medical history on file. Past Surgical History: PAST SURGICAL HISTORY Procedure Laterality Date NONE Family History: No family history on file. Tobacco History: Tobacco Use: 1.5 packs/day, for 15 years. Types: Cigarettes Medications: Current Outpatient Medications Medication Sig Dispense Refill dextromethorphan-guaiFENesin (MUCINEX DM) 30-600 mg per tablet Take 1 tablet by mouth two times a day. 20 tablet 0 atomoxetine (STRATTERA) 25 mg capsule Take 25 mg by mouth once daily. PROAIR HFA 90 mcg/actuation inhaler Inhale 2 Puffs as instructed four times daily as needed. VRAYLAR 1.5 mg capsule TAKE ONE CAPSULE BY MOUTH ONE TIME DAILY AFTER DINNER Cetirizine (ZYRTEC) 10 mg cap Take by mouth. clonazePAM (KLONOPIN) 0.5 mg tablet Take 0.5 mg by mouth twice daily. ergocalciferol 50,000 unit capsule (VITAMIN D2, DRISDOL) ferrous sulfate 325 mg (65 mg iron) tablet Take by mouth. FLUoxetine 10 mg tablet TAKE ONE TABLET BY MOUTH ONE TIME DAILY IN THE MORNING ADVAIR DISKUS 250-50 mcg/dose inhaler Inhale 1 Puff as instructed twice daily. ipratropium-albuterol (DUONEB) 0.5 mg-3 mg(2.5 mg base)/3 mL nebu Use twice daily scheduled and every 6 hours as needed for Shortness of breath omega-3 acid ethyl esters (LOVAZA) 1 gram capsule Take 1 g by mouth once daily. pantoprazole DR (PROTONIX) 40 mg tablet Take 40 mg by mouth every morning. No current facility-administered medications for this visit. Vitals: BP 110/65 Pulse 92 Temp 36.7 C (98 F) Resp 18 LMP 09/14/2023 (Approximate) SpO2 95% Physical Exam: Physical Exam Vitals and nursing note reviewed. Constitutional: General: She is not in acute distress. HENT: Head: Normocephalic. Right Ear: Tympanic membrane, ear canal and external ear normal. Left Ear: Tympanic membrane, ear canal and external ear normal. Nose: Mucosal edema and congestion present. Mouth/Throat: Mouth: Mucous membranes are moist. Pharynx: Oropharynx is clear. Cardiovascular: Rate and Rhythm: Normal rate and regular rhythm. Pulmonary: Effort: Pulmonary effort is normal. Breath sounds: Normal breath sounds. Neurological: Mental Status: She is alert. Psychiatric: Behavior: Behavior is cooperative. Labs: COVID/FLU- pending ASSESSMENT/PLAN: 1. Acute upper respiratory infection - ICD9: 465.9, ICD10: J06.9 - Discussed viral etiology and rationale for treatment. - Symptomatic treatment with prn analgesia - Supportive care with fluids and rest - MUCINEX DM 30 MG-600 MG TABLET,EXTENDED RELEASE 12 HR - COVID & INFLUENZA A/B & RSV NAAT, ROUTINE -pt education along with discharge instructions given to pt -pt agreeable with plan -follow-up if symptoms don't improve in 3-5 days or get worse Rosita Rich APRN.CNP 09/23/23 3:56 PM documented in this encounterPrem[facility]01-18-[facility] History of Present illness Narrative* Debbi Leija MD - 07/30/2022 9:23 AM EST IMPRESSION 42-year-old female with dysphagia. RECOMMENDATION/PLAN To further assess her dysphagia, I recommend obtaining a modified barium swallow study and esophagram. The next step in treatment will depend on the results of these study. Chief Complaint Trouble swallowing History of Present Illness Claudia Hebert is a 42 year old female present for evaluation of dysphagia. Patient stated that forthe last 3 weeks, she been having difficulty swallowing solid food. She feels like food is getting stuck in her throat. She has no issues with liquids or soft foods like bananas. She denies any throat pain or pain with swallowing. She denies any voice changes or shortness of breath. She is a smokerwho smoked about half a pack a day for the last 23 years. History reviewed. No pertinent past medical history. PAST SURGICAL HISTORY Procedure Laterality Date NONE History reviewed. No pertinent family history. CURRENT OUTPATIENT MEDICATIONS Current Outpatient Medications on File Prior to Visit Medication Sig atomoxetine (STRATTERA) 25 mg capsule Take 25 mg by mouth once daily. PROAIR HFA 90 mcg/actuation inhaler Inhale 2 Puffs as instructed four times daily as needed. VRAYLAR 1.5 mg capsule TAKE ONE CAPSULE BY MOUTH ONE TIME DAILY AFTER DINNER Cetirizine (ZYRTEC) 10 mg cap Take by mouth. clonazePAM (KLONOPIN) 0.5 mg tablet Take 0.5 mg by mouth twice daily. ergocalciferol 50,000 unit capsule (VITAMIN D2, DRISDOL) ferrous sulfate 325 mg (65 mg iron) tablet Take by mouth. FLUoxetine 10 mg tablet TAKE ONE TABLET BY MOUTH ONE TIME DAILY IN THE MORNING ADVAIR DISKUS 250-50 mcg/dose inhaler Inhale 1 Puff as instructed twice daily. ipratropium-albuterol (DUONEB) 0.5 mg-3 mg(2.5 mg base)/3 mL nebu Use twice daily scheduled and every 6 hours as needed for Shortness of breath omega-3 acid ethyl esters (LOVAZA) 1 gram capsule Take 1 g by mouth once daily. pantoprazole DR (PROTONIX) 40 mg tablet Take 40 mg by mouth every morning. No current facility-administered medications on file prior to visit. ALLERGIES ALLERGIES No Known Allergies The remainder of the patient's history and review of systems is on the outpatient questionaire which was reviewed by me and placed in the outpatient chart. PHYSICAL EXAMINATION Appearance: General examination of the patient's external face, head and neck reveals no abnormalities. The patient is not retrognathic The patient's voice is strong and clear and they communicate easily. Ears: Right EAC patent, TM intact, middle ear space appears healthy. Left EAC impacted with cerumen. Nose: External nasal exam was normal. Throat: There were no lesions to visualization or palpation of the lips, cheeks, gums, floor of mouth, tongue, hard and soft palate, tonsillar pillars or posterior pharyngeal wall. The patient is a Patterson Tongue Position 3 and has grade 1 tonsils. Neck: Palpation of the neck revealed no adenopathy, salivary gland masses or asymmetry, or thyroid masses or enlargement. Procedure Flexible laryngoscopy was performed because of the following indication: hyperactive gag and dysphagia: After spraying the nose with 4% xylocaine and 0.5% oxymetazoline, the flexible scope was placedin a transnasal fashion. The nasopharynx, oropharynx, hypopharynx including the pyriform sinuses were normal. The base of tongue showed no gross lesions. The larynx itself showed redundant tissue of bilateral arytenoid and interarytenoid mucosa. The true vocal folds are mildly edematous. The vocal cords moved well bilaterally. Debbi Leija MD documented in this encounterPremier [facility]09-22-2022 History of Present illness Narrative* Gary Berman MD - 04/03/2022 9:03 AM EDT HPI Claudia Hebert is a 41 year old female who presents with chronic sinusitis. Patient seen consultation by Dr. Hernandez. Patient had a CAT scan sometime ago when she was having dizzy spells and he noted some element of sinusitis. Patient does also suffer from anxiety patient denies any true vertigo. ROS General Weight loss: No Fatigue: No Night sweats:No Cardiac Chest pain:No Fast heart rate:No Swelling in the feet:No Respiratory Short of breath:No Cough:No Wheezing:No Gastrointestinal Nausea:No Vomiting:No Indigestion:No Past medical history, family history, and social history reviewed. PE There were no vitals taken for this visit. General: Patient is awake, alert, NAD. Voice is normal. Skin: normal Eyes: Extraocular motion and Gaze is normal. Ears: Right external auditory canal is normal. Moderate cerumen left TMJ: normal. Right tympanic membranes normal. Left external auditory canal is normal. Left tympanic membrane normal. Nose: Septum is normal. Moderate congestion no polyps or purulence Turbinates are normal. Nasopharynx:normal Oral Cavity/Oropharynx: Lips normal Dentition normal Tongue normal. Tonsils normal. Palate and uvula normal. Pharynx posterior normal Hypopharynx: Base of tongue normal Pyriform sinus normal. Larynx: Vocal cords normal. Epiglottis normal. Post cricoid normal. Salivary glands: Parotid normal. Submandibular and sublingual normal. Thyroid: normal. Lymphatic/Neck: Lymph nodes normal. Neurologic: Facial nerve normal. CT brain reviewed ASSESSMENT/PLAN: 1. Chronic pansinusitis - ICD9: 473.8, ICD10: J32.4 (primary diagnosis) 2. Chronic rhinitis - ICD9: 472.0, ICD10: J31.0 3. Dizziness - ICD9: 780.4, ICD10: R42 Continue the Flonase follow-up as needed Gary Berman MD Findings will be communicated to the referring physician via mail or electronic medical record. documented in this encounterPremier Health [facility]07-08-2022 History of Present illness Narrative* Leonardo Barkley - 01/17/2022 6:22 AM EDT Sleep Study Check-In Documentation Date: January 17, 2022 Name: Claudia Hebert Patient was accompanied by Significant other. Location: Latex allergy: No Tape allergy: No Current medications were reviewed with the patient:Yes Sleep aid taken by patient for the sleep study: [place] of sleep aid: Not Applicable Procedure was explained to the patient and all questions were answered. PAP treatment discussed and shown to patient: Yes If PAP used enter mask info: Mask Name AirFit F10 Make ResMed MaskTypeFull Face Mask SizeSmall Chin Sharp Used No Knowledge Program (KP): KP was not completed in epic by patient and accepted Study type: Split Study-Polysomnogram with CPAP titration Adverse Event: No (If yes create a new abstract) SERS Event: No Comments: Patient was advised to follow up with their ordering provider regarding test results Leonardo Barkley * Errol Sarabia III, PhD - 11/25/2021 2:52 PM EDT November 25, 2021 Standing PSG Orders signed in the last 90 days None Future PSG Orders signed in the last 90 days Ordered Auth. provider POLYSOMNOGRAM (PSG) [[id number]] 11/25/21 [facility] diagnoses: Obstructive sleep apnea syndrome [G47.33] Q: Indications - Select All That Apply: A: Obstructive sleep apnea (snoring, tiredness/fatigue/daytime sleepiness, behavior disturbance, craniofacial abnormality, tonsil hypertrophy) Q: Comorbidities: A: NONE Q: Is the patient non-ambulatory or will they be accompanied by a caregiver?: A: No Q: Current use of supplemental oxygen during sleep period?: A: No Q: Add supplemental oxygen if needed per sleep lab policy?: A: Yes Q: Is this a repeat Sleep Study?: A: No Q: Enter External Provider Name: Benjamín: Steffany Hernandez Q: Enter External Provider Fax Number: A: [phone] All Prior Sleep Studies (past 365 days) Some values may be hidden. Unless noted otherwise, only the newest values recorded on each date aredisplayed. Sleep Studies POLYSOMNOGRAM (PSG) Future Expected: Expires: 11/25/22 BMI Readings from Last 2 Encounters: No data found for BMI No past medical history on file. The medical record was reviewed to determine if the proposed sleep study conforms to the [facility] Practice Parameters for the Indications for Polysomnography and Related Procedures, or if the sleep studyis indicated for other reasons. Indications for study: BRITTANY suspected without comorbid medical or sleep disorders Sleep study to be performed: Polysomnogram Special instructions: Target REM/supine sleep Maxim Amado [facility] Staff Note: I have read the above protocol, edited as needed, and agree to the plan. Errol Sarabia III, PhD 3:36 PM, 11/25/2021 * Lucy Montgomery - 11/07/2021 4:28 PM EDT November 07, 2021 An order has been received for Polysomnogram (PSG) from lucho Nesbitt (), a C. Dionisio with and without [facility]. Visit prep complete. Order and documentation available in [employer] either under procedure or scanned document tabs. Comments :No The sleep study has not been scheduled yet. (Please refer to the S drive for supporting documents) Insurance: Payor: [place] / Plan: [place] / Product Type: Medicaid / Payor/Plan Subscr Sex Relation Sub. Ins. ID Effective Group Num 1. [place]ICAID [place] -* CLAUDIA HEBERT 1980 Female Self [id number] [address] Lucy Montgomery [facility] [place] [facility]* Diagnosis Obstructive sleep apnea syndrome- Primary Obstructive sleep apnea (adult) (pediatric) documented in this encounter [facility] [place] [facility]* Diagnosis Chronic pansinusitis- Primary Other chronic sinusitis Chronic rhinitis Dizziness Dizziness and giddiness documented in this encounter [facility] [place] [facility]* Diagnosis Obstructive sleep apnea (adult) (pediatric)- Primary documented in this encounter [facility] [place] [facility]* Diagnosis Other dysphagia- Primary [facility] Acute upper respiratory infection- Primary Acute upper respiratory infections of unspecified site [facility] Diagnosis Right upper quadrant abdominal pain- Primary Abdominal pain, right upper quadrant Left upper quadrant abdominal pain Dysuria Nausea Nausea alone Dizziness Dizziness and giddiness [facility] Diagnosis Aftercare- Primary Unspecified aftercare [facility] Diagnosis Aftercare- Primary Unspecified aftercare [facility] Diagnosis BRITTANY (obstructive sleep apnea)- Primary Obstructive sleep apnea (adult) (pediatric) Adult ADHD Attention deficit disorder with hyperactivity Pure hypertriglyceridemia Pure hyperglyceridemia Hyperlipidemia, mixed Mixed hyperlipidemia Venous stasis Unspecified venous (peripheral) insufficiency Chronic left shoulder pain Pain in joint, shoulder region Generalized anxiety disorder Morbid obesity (HCC) Morbid obesity Tobacco abuse Tobacco use disorder [facility] [place] [facility]* Diagnosis BRITTANY (obstructive sleep apnea)- Primary Obstructive sleep apnea (adult) (pediatric) [facility]* Diagnosis Weakness of left shoulder- Primary Chronic left shoulder pain Pain in joint, shoulder region documented in this encounter [facility] [place] [facility]* Diagnosis BRITTANY (obstructive sleep apnea) Obstructive sleep apnea (adult) (pediatric) documented in this encounter [facility] [place] noteNo assessment information availableWOhioHealth Van [facility] Work Phone: Evaluation note* 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 of both eyes Regular astigmatism Presbyopia [facility]* Diagnosis Generalized abdominal pain- Primary Abdominal pain, generalized Edema, unspecified type documented in this encounter [facility] [place] [facility]* Diagnosis Intertrigo- Primary Other specified erythematous condition Hyperlipidemia, mixed Mixed hyperlipidemia Generalized anxiety disorder Morbid obesity (HCC) Morbid obesity Tobacco abuse Tobacco use disorder Mixed hyperlipidemia Asthma with chronic obstructive pulmonary disease (COPD) ([facility]) Chronic obstructive asthma, unspecified Gastroesophageal reflux disease without esophagitis Esophageal reflux Screening for diabetes mellitus Abdominal wall cellulitis Cellulitis and abscess of trunk Cellulitis and abscess of leg Cellulitis and abscess of leg, except foot Encounter for tobacco use cessation counseling Chronic insomnia Insomnia, unspecified PTSD (post-traumatic stress disorder) Posttraumatic stress disorder MPD syndrome Mylagia and myositis, unspecified Other specified attention deficit hyperactivity disorder (ADHD) Injury of head, initial encounter Encounter for immunization Need for other specified prophylactic vaccination against single bacterial disease Encounter for screening mammogram for breast cancer documented in this encounter [facility] [place] [facility]* Diagnosis Cellulitis and abscess of leg- Primary Cellulitis and abscess of leg, except foot documented in this encounter [facility] [place] [facility]* Diagnosis Panniculitis- Primary Panniculitis, unspecified site Morbid obesity (HCC) Morbid obesity Abdominal wall cellulitis Cellulitis and abscess of trunk documented in this encounter [facility] [place] [facility]* Diagnosis Generalized anxiety disorder PTSD (post-traumatic stress disorder) Posttraumatic stress disorder MPD syndrome Mylagia and myositis, unspecified Injury of head, initial encounter documented [facility] this encounter [facility]* Diagnosis Cellulitis and abscess of leg- Primary Cellulitis and abscess of leg, except foot Right ventricular diastolic dysfunction Chronic sphenoidal sinusitis Encounter for smoking cessation counseling Counseling on substance use and abuse Morbid obesity (HCC) Morbid obesity Encounter for tobacco use cessation counseling documented in this encounter [facility] [place] [facility]* Diagnosis Encounter for screening mammogram for breast cancer documented in this encounter [facility] [place] [facility]* Diagnosis Asthma with chronic obstructive pulmonary disease (COPD) ([facility])- Primary Chronic obstructive asthma, unspecified documented in this encounter [facility] Discharge instructions Additional Instructions 1. Do not rub your eyes 2. Instill 1 drop of eyedrop every 2 hours while awake for the next 24 hours, then instill 1 drop every 4 hours while awake for the next 5 days. 3. If you are not better contact Dr. Cherrie Reed who is a local signals analyst. [facility] Work Phone: Reason for referral (narrative)* Diagnostic Procedure Only (Routine) - Authorized Specialty Diagnoses / Procedures Referred By Contac t Referred To Contact XR IMAGING Diagnoses Other dysphagia Procedures XR ESOPHAGRAM RADIOLOGIC EXAM ESOPHAGUS SINGLE CONTRAST STUDY Debbi Leija MD [address] [place], [place] [id number] Xr Imaging Referral ID Status Reason Start Date Expiration Date Visits Requested Visits Authorized [id number] Authorized Auto-Generat ed Referral 07/30/2022 08/29/2023 1 1 * Diagnostic Procedure Only (Routine) - Authorized Specialty Diagnoses / Procedures Referred By Contac t Referred To Contact XR IMAGING Diagnoses Other dysphagia Procedures XR MODIFIED BARIUM SWALLOW W SPEECH THERAPY RADIOLOGIC EXAM SWALLOW FUNCTION CONTRAST STUDY Debbi Leija MD [address] [place], [place] [id number] Xr Imaging Referral ID Status Reason Start Date Expiration Date Visits Requested Visits Authorized [id number] Authorized Auto-Generat ed Referral 07/30/2022 08/29/2023 1 1 [facility] for referral (narrative)No reason for referral information availableWOhioHealth Van [facility] Work Phone: Repujj for visit Narrative* MRI/CT (Routine) - Closed Specialty Diagnoses / Procedures Referred By Contac t Referred To Contact MR IMAGING Diagnoses Generalized anxiety disorder PTSD (post-traumatic stress disorder) MPD syndrome Injury of head, initial encounter Procedures MRI BRAIN WO IVCON MRI BRAIN BRAIN STEM W/O CONTRAST MATERIAL Akilah Wiggins APRN.[facility] [address] [place] [address] Phone: tel: fax: [place] [phone] Referral ID Status Reason Start Date Expiration Date V isits Requested Visits Authorized [id number] Closed Auto-Generate d Referral 02/07/2025 03/09/2025 1 1 [facility] Narrative* Diagnostic Procedure Only (Routine) - Closed Specialty Diagnoses / Procedures Referred By Lakisha t Referred To Contact BR [facility] Diagnoses Encounter for screening mammogram for breast cancer Procedures ABHAY SCREENING W RAFFI SCREENING DIGITAL BREAST TOMOSYNTHESIS BI SCREENING MAMMOGRAPHY BI 2-VIEW BREAST INC CAD Akilah Wiggins, FERNANDO.FIRE INVESTIGATION MANAGER [address] [place] [address] Phone: tel: fax: [facility] [address] [place] [address] Referral ID Status Reason Start Date Expiration Date V isits Requested Visits Authorized [id number] Closed Auto-Generate d Referral 01/24/2025 02/23/2026 1 1 [facility] Advance Directives No Advanced Directives Records FoundDocuments on File Type Date Recorded 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 No November 19, 2024 8:46pm Advance Directive Response Recorded Date/ Time Do you have a Healthcare Power of Mica Sizer? No January 02, 2025 6:05pm Do you have a Healthcare Power of Mica Sizer? No November 19, 2024 8:46pm Advance Directive Response Recorded Date/ Time Do you have a Healthcare Power of Mica Sizer? No January 02, 2025 6:05pm Health Concerns Infection Onset Date Last Indicated Resolved Time COVID-19 Rule-Out 09/23/2023 09/23/2023 Summary Purpose Family History No Family History Records FoundNo Family History Records FoundNo Family History Records FoundNo Family History Records FoundNo Family History Records Found Chief Complaint and Reason for Visit Chief Complaint Admit Date Eye problem November 19, 2024 8:34p m Chief Complaint Admit Date Eye problem November 19, 2024 8:34p m EYE, BELLY January 02, 2025 5:47 pm Chief Complaint Admit Date Eye problem November 19, 2024 8:34p m EYE, BELLY January 02, 2025 5:47 pm wound February 14, 2025 12: 31pm wound February 21, 2025 6: 30pm wound February 28, 2025 1: 45pm wound February 28, 2025 5: 13pm Reason for Visit Admit Date ADHD February 28, 2025 1: 45pm Asthma February 28, 2025 1: 45pm Dependent edema February 28, 2025 1: 45pm GERD (gastroesophageal reflux disease) A ugust 2024 1:45pm Hyperlipidemia February 28, 2025 1: 45pm Morbid obesity with BMI of 60.0-69.9, ad ult February 28, 2025 1:45pm Non-pressure ulcer of right lower extremity with fat layer exposed February 28, 2025 1:45pm Obstructive sleep apnea on CPAP February 102024 1:45pm Schizophrenia February 28, 2025 1: 45pm Tobacco abuse February 28, 2025 1: 45pm Tobacco abuse counseling February 28 1:45pm Wound of right lower extremity February 282024 1:45pm COPD (chronic obstructive pulmonary dise ase) February 28, 2025 1:45pm Hx of appendectomy February 28, 2025 1: 45pm Hx of cholecystectomy February 28, 2025 1:45pm Chief Complaint Admit Date EYE, BELLY January 02, 2025 5:47 pm wound February 14, 2025 12: 31pm wound February 21, 2025 6: 30pm wound February 28, 2025 1: 45pm wound February 28, 2025 5: 13pm wound March 14, 2025 11:22am wound March 14, 2025 1:34pm RIGHT VENTRICULAR DIASTOLIC DYSFUNCTION ([place]) March 29, 2025 2:06pm Reason for Visit Admit Date ADHD February 28, 2025 1: 45pm Asthma February 28, 2025 1: 45pm Dependent edema February 28, 2025 1: 45pm GERD (gastroesophageal reflux disease) A ugust 2024 1:45pm Hyperlipidemia February 28, 2025 1: 45pm Morbid obesity with BMI of 60.0-69.9, ad ult February 28, 2025 1:45pm Non-pressure ulcer of right lower extremity with fat layer exposed February 28, 2025 1:45pm Obstructive sleep apnea on CPAP February 102024 1:45pm Schizophrenia February 28, 2025 1: 45pm Tobacco abuse February 28, 2025 1: 45pm Tobacco abuse counseling February 28 1:45pm Wound of right lower extremity February 282024 1:45pm COPD (chronic obstructive pulmonary dise ase) February 28, 2025 1:45pm Hx of appendectomy February 28, 2025 1: 45pm Hx of cholecystectomy February 28, 2025 1:45pm ADHD March 14, 2025 11:22am Asthma March 14, 2025 11:22am Dependent edema March 14, 2025 11:22am GERD (gastroesophageal reflux disease) S eptemb2024 11:22am Hyperlipidemia March 14, 2025 11:22am Morbid obesity with BMI of 60.0-69.9, ad ult March 14, 2025 11:22am Non-pressure ulcer of right lower extremity with fat layer exposed March 14, 2025 11:22am Obstructive sleep apnea on CPAP Septembe 2024 11:22am Schizophrenia March 14, 2025 11:22am Tobacco abuse March 14, 2025 11:22am Tobacco abuse counseling March 14, 2025 11:22am Wound of right lower extremity March 14, 2025 11:22am COPD (chronic obstructive pulmonary dise ase) March 14, 2025 11:22am Hx of appendectomy March 14, 2025 11:22am Hx of cholecystectomy March 14 11:22am Reason for Visit Admit Date ADHD February 28, 2025 1: 45pm Asthma February 28, 2025 1: 45pm Dependent edema February 28, 2025 1: 45pm GERD (gastroesophageal reflux disease) A ugust 2024 1:45pm Hyperlipidemia February 28, 2025 1: 45pm Morbid obesity with BMI of 60.0-69.9, ad ult February 28, 2025 1:45pm Non-pressure ulcer of right lower extremity with fat layer exposed February 28, 2025 1:45pm Obstructive sleep apnea on CPAP February 102024 1:45pm Schizophrenia February 28, 2025 1: 45pm Tobacco abuse February 28, 2025 1: 45pm Tobacco abuse counseling February 28 1:45pm Wound of right lower extremity February 282024 1:45pm COPD (chronic obstructive pulmonary dise ase) February 28, 2025 1:45pm Hx of appendectomy February 28, 2025 1: 45pm Hx of cholecystectomy February 28, 2025 1:45pm ADHD March 14, 2025 11:22am Asthma March 14, 2025 11:22am Dependent edema March 14, 2025 11:22am GERD (gastroesophageal reflux disease) S eptember 2024 11:22am Hyperlipidemia March 14, 2025 11:22am Morbid obesity with BMI of 60.0-69.9, ad ult March 14, 2025 11:22am Non-pressure ulcer of right lower extremity with fat layer exposed March 14, 2025 11:22am Obstructive sleep apnea on CPAP Septembe r 2024 11:22am Schizophrenia March 14, 2025 11:22am Tobacco abuse March 14, 2025 11:22am Tobacco abuse counseling March 14, 2025 11:22am Wound of right lower extremity March 14, 2025 11:22am COPD (chronic obstructive pulmonary dise ase) March 14, 2025 11:22am Hx of appendectomy March 14, 2025 11:22am Hx of cholecystectomy March 14 11:22am Right ventricular diastolic dysfunction March 29, 2025 2:06pm Additional Source Comments Source Comments (unrecognize d section and content) In the event this informatio n is protected by the Federal Confidentiality of Alcohol and Drug Abuse Patient Records regulations: The Federal rules restrict any use of the information to criminally investigate or prosecute any alcohol or drug abuse patient.[facility] the event this information is protected by the Federal Confidentiality of Alcohol and Drug Abuse Patient Records regulations: The Federal rules restrict any use of the information to criminally investigate or prosecute any alcohol or drug abuse patient.[facility] HospitalIn the event this information is protected by the Federal Confidentiality of Alcohol and Drug Abuse Patient Records regulations: The Federal rules restrict any use of the information to criminally investigate or prosecute any alcohol or drug abuse patient.[facility] HospitalIn the event this information is protected by the Federal Confidentiality of Alcohol and Drug Abuse Patient Records regulations: The Federal rules restrict any use of the information to criminally investigate or prosecute any alcohol or drug abuse patient.[facility] HospitalIn the event this information is protected by the Federal Confidentiality of Alcohol and Drug Abuse Patient Records regulations: The Federal rules restrict any use of the information to criminally investigate or prosecute any alcohol or drug abuse patient.[facility] HospitalIn the event this information is protected by the Federal Confidentiality of Alcohol and Drug Abuse Patient Records regulations: The Federal rules restrict any use of the information to criminally investigate or prosecute any alcohol or drug abuse patient.[facility] HospitalIn the event this information is protected by the Federal Confidentiality of Alcohol and Drug Abuse Patient Records regulations: The Federal rules restrict any use of the information to criminally investigate or prosecute any alcohol or drug abuse patient.[facility] HospitalIn the event this information is protected by the Federal Confidentiality of Alcohol and Drug Abuse Patient Records regulations: The Federal rules restrict any use of the information to criminally investigate or prosecute any alcohol or drug abuse patient.[facility] HospitalIn the event this information is protected by the Federal Confidentiality of Alcohol and Drug Abuse Patient Records regulations: The Federal rules restrict any use of the information to criminally investigate or prosecute any alcohol or drug abuse patient.[facility] HospitalIn the event this information is protected by the Federal Confidentiality of Alcohol and Drug Abuse Patient Records regulations: The Federal rules restrict any use of the information to criminally investigate or prosecute any alcohol or drug abuse patient.[facility] HospitalIn the event this information is protected by the Federal Confidentiality of Alcohol and Drug Abuse Patient Records regulations: The Federal rules restrict any use of the information to criminally investigate or prosecute any alcohol or drug abuse patient.[facility] HospitalIn the event this information is protected by the Federal Confidentiality of Alcohol and Drug Abuse Patient Records regulations: The Federal rules restrict any use of the information to criminally investigate or prosecute any alcohol or drug abuse patient.[facility] HospitalIn the event this information is protected by the Federal Confidentiality of Alcohol and Drug Abuse Patient Records regulations: The Federal rules restrict any use of the information to criminally investigate or prosecute any alcohol or drug abuse patient.[facility] HospitalIn the event this information is protected by the Federal Confidentiality of Alcohol and Drug Abuse Patient Records regulations: The Federal rules restrict any use of the information to criminally investigate or prosecute any alcohol or drug abuse patient.[facility] HospitalIn the event this information is protected by the Federal Confidentiality of Alcohol and Drug Abuse Patient Records regulations: The Federal rules restrict any use of the information to criminally investigate or prosecute any alcohol or drug abuse patient.[facility] HospitalIn the event this information is protected by the Federal Confidentiality of Alcohol and Drug Abuse Patient Records regulations: The Federal rules restrict any use of the information to criminally investigate or prosecute any alcohol or drug abuse patient.[facility] HospitalIn the event this information is protected by the Federal Confidentiality of Alcohol and Drug Abuse Patient Records regulations: The Federal rules restrict any use of the information to criminally investigate or prosecute any alcohol or drug abuse patient.[facility] HospitalIn the event this information is protected by the Federal Confidentiality of Alcohol and Drug Abuse Patient Records regulations: The Federal rules restrict any use of the information to criminally investigate or prosecute any alcohol or drug abuse patient.[facility] HospitalIn the event this information is protected by the Federal Confidentiality of Alcohol and Drug Abuse Patient Records regulations: The Federal rules restrict any use of the information to criminally investigate or prosecute any alcohol or drug abuse patient.[facility] HospitalIn the event this information is protected by the Federal Confidentiality of Alcohol and Drug Abuse Patient Records regulations: The Federal rules restrict any use of the information to criminally investigate or prosecute any alcohol or drug abuse patient.[facility] HospitalIn the event this information is protected by the Federal Confidentiality of Alcohol and Drug Abuse Patient Records regulations: The Federal rules restrict any use of the information to criminally investigate or prosecute any alcohol or drug abuse patient.[facility] HospitalIn the event this information is protected by the Federal Confidentiality of Alcohol and Drug Abuse Patient Records regulations: The Federal rules restrict any use of the information to criminally investigate or prosecute any alcohol or drug abuse patient.[facility] HospitalIn the event this information is protected by the Federal Confidentiality of Alcohol and Drug Abuse Patient Records regulations: The Federal rules restrict any use of the information to criminally investigate or prosecute any alcohol or drug abuse patient.[facility] HospitalIn the event this information is protected by the Federal Confidentiality of Alcohol and Drug Abuse Patient Records regulations: The Federal rules restrict any use of the information to criminally investigate or prosecute any alcohol or drug abuse patient.[facility] HospitalIn the event this information is protected by the Federal Confidentiality of Alcohol and Drug Abuse Patient Records regulations: The Federal rules restrict any use of the information to criminally investigate or prosecute any alcohol or drug abuse patient.[facility] the event this information is protected by the Federal Confidentiality of Alcohol and Drug Abuse Patient Records regulations: The Federal rules restrict any use of the information to criminally investigate or prosecute any alcohol or drug abuse patient.[facility] HospitalIn the event this information is protected by the Federal Confidentiality of Alcohol and Drug Abuse Patient Records regulations: The Federal rules restrict any use of the information to criminally investigate or prosecute any alcohol or drug abuse patient.[facility] the event this information is protected by the Federal Confidentiality of Alcohol and Drug Abuse Patient Records regulations: The Federal rules restrict any use of the information to criminally investigate or prosecute any alcohol or drug abuse patient.[facility] HospitalIn the event this information is protected by the Federal Confidentiality of Alcohol and Drug Abuse Patient Records regulations: The Federal rules restrict any use of the information to criminally investigate or prosecute any alcohol or drug abuse patient.[facility] HospitalIn the event this information is protected by the Federal Confidentiality of Alcohol and Drug Abuse Patient Records regulations: The Federal rules restrict any use of the information to criminally investigate or prosecute any alcohol or drug abuse patient.[facility] HospitalIn the event this information is protected by the Federal Confidentiality of Alcohol and Drug Abuse Patient Records regulations: The Federal rules restrict any use of the information to criminally investigate or prosecute any alcohol or drug abuse patient.[facility] HospitalIn the event this information is protected by the Federal Confidentiality of Alcohol and Drug Abuse Patient Records regulations: The Federal rules restrict any use of the information to criminally investigate or prosecute any alcohol or drug abuse patient.[facility]In the event this information is protected by the Federal Confidentiality of Alcohol and Drug Abuse Patient Records regulations: The Federal rules restrict any use of the information to criminally investigate or prosecute any alcohol or drug abuse patient.[facility] HospitalIn the event this information is protected by the Federal Confidentiality of Alcohol and Drug Abuse Patient Records regulations: The Federal rules restrict any use of the information to criminally investigate or prosecute any alcohol or drug abuse patient.[facility] HospitalIn the event this information is protected by the Federal Confidentiality of Alcohol and Drug Abuse Patient Records regulations: The Federal rules restrict any use of the information to criminally investigate or prosecute any alcohol or drug abuse patient.[facility] HospitalIn the event this information is protected by the Federal Confidentiality of Alcohol and Drug Abuse Patient Records regulations: The Federal rules restrict any use of the information to criminally investigate or prosecute any alcohol or drug abuse patient.[facility] HospitalIn the event this information is protected by the Federal Confidentiality of Alcohol and Drug Abuse Patient Records regulations: The Federal rules restrict any use of the information to criminally investigate or prosecute any alcohol or drug abuse patient.[facility] HospitalIn the event this information is protected by the Federal Confidentiality of Alcohol and Drug Abuse Patient Records regulations: The Federal rules restrict any use of the information to criminally investigate or prosecute any alcohol or drug abuse patient.[facility] Care Teams (unrecognized sec tion and content) Typists Supervisor Relationship Specialty Start Date End Date Steffany Hernandez MD [address] [facility] [address] [place] [address] Referring Internal Medicine 11/13/21 Typists Supervisor Relationship Specialty Start Date End Date Steffany Hernandez MD [address] [facility] [address] [place] [address] Referring Internal Medicine 11/13/21 Typists Supervisor Relationship Specialty Start Date End Date Steffany Hernandez MD [address] [facility] [address] [place] [address] Referring Internal Medicine 11/13/21 Typists Supervisor Relationship Specialty Start Date End Date Monica Tinajero MD [address] [facility] [address] [place] [address] PCP - General Internal Medicine 05/15/22 Steffany Hernandez MD [address] [facility] [address] [place] [address] Referring Internal Medicine 11/13/21 Monica Tinajero MD [address] [place] [address] Internal Medicine 05/01/22 Typists Supervisor Relationship Specialty Start Date End Date Monica Tinajero MD [address] [place] [address] PCP - General Internal Medicine 05/15/22 Steffany Hernandez MD [address] [facility] [address] [place] [address] Referring Internal Medicine 11/13/21 Monica Tinajero MD [address] [place] [address] Internal Medicine 05/01/22 Typists Supervisor Relationship Specialty Start Date End Date Monica Tinajero MD [address] [place] [address] PCP - General Internal Medicine 05/15/22 Steffany Hernandez MD [address] [place] [address] Referring Internal Medicine 11/13/21 Monica Tinajero MD [address] [place] [address] Internal Medicine 05/01/22 Typists Supervisor Relationship Specialty Start Date End Date Monica Tinajero MD [address] [place] [address] PCP - General Internal Medicine 05/15/22 Steffany Hernandez MD [address] [facility] [address] [place] [address] Referring Internal Medicine 11/13/21 Monica Tinajero MD [address] [place] [address] Internal Medicine 05/01/22 Typists Supervisor Relationship Specialty Start Date End Date Monica Tinajero MD [address] [place] [address] PCP - General Internal Medicine 05/15/22 Steffany Hernandez MD [address] [facility] [address] [place] [address] Referring Internal Medicine 11/13/21 Monica Tinajero MD [address] [place] [address] Internal Medicine 05/01/22 Typists Supervisor Relationship Specialty Start Date End Date Monica Tinajero MD [address] [place] [address] PCP - General Internal Medicine 05/15/22 Steffany Hernandez MD [address] [facility] [address] [place] [address] Referring Internal Medicine 11/13/21 Monica Tinajero MD [address] [place] [address] Internal Medicine 05/01/22 Typists Supervisor Relationship Specialty Start Date End Date Monica Tinajero MD [address] [place] [address] PCP - General Internal Medicine 05/15/22 Steffany Hernandez MD [address] [facility] [address] [place] [address] Referring Internal Medicine 11/13/21 Monica Tinajero MD [address] [place] [address] Internal Medicine 05/01/22 Typists Supervisor Relationship Specialty Start Date End Date Monica Tinajero MD [address] [place] [address] PCP - General Internal Medicine 05/15/22 Steffany Hernandez MD [address] [facility] [address] [place] [address] Referring Internal Medicine 11/13/21 Monica Tinajero MD [address] [place] [address] Internal Medicine 05/01/22 Typists Supervisor Relationship Specialty Start Date End Date oMnica Tinajero MD [address] [place] [address] PCP - General Internal Medicine 05/15/22 Steffany Hernandez MD [address] [facility] [address] [place] [address] Referring Internal Medicine 11/13/21 Monica Tinajero MD [address] [address] Internal Medicine 05/01/22 Typists Supervisor Relationship Specialty Start Date End Date Addie Holley DO [address] [place] [address] PCP - General Family Medicine 08/22/24 Steffany Hernandez MD [address] [address] Referring Internal Medicine 11/13/21 Monica Tinajero MD [address] [address] Internal Medicine 05/01/22 Typists Supervisor Relationship Specialty Start Date End Date Addie Holley DO [address] [place] [address] PCP - General Family Medicine 08/22/24 Steffany Hernandez MD [address] [place] [address] Referring Internal Medicine 11/13/21 Monica Tinajero MD [address] [place] [address] Internal Medicine 05/01/22 Typists Supervisor Relationship Specialty Start Date End Date Addie Holley DO [address] [place] [place] [address] PCP - General Family Medicine 08/22/24 Steffany Henrandez MD [address] [address] Referring Internal Medicine 11/13/21 Monica Tinajero MD [address] [address] Internal Medicine 05/01/22 Typists Supervisor Relationship Specialty Start Date End Date Addie Holley DO [address] [place] [address] PCP - General Family Medicine 08/22/24 Steffany Hernandez MD [address] [place] [address] Referring Internal Medicine 11/13/21 Monica Tinajero MD [address] [address] Internal Medicine 05/01/22 Typists Supervisor Relationship Specialty Start Date End Date Addie Holley DO [address] [place] [address] PCP - General Family Medicine 08/22/24 Steffany Hernandez MD [address] [place] [address] Referring Internal Medicine 11/13/21 Monica Tinajero MD [address] [address] Internal Medicine 05/01/22 Typists Supervisor Relationship Specialty Start Date End Date Addie Holley DO [address] [place] [address] PCP - General Family Medicine 08/22/24 Steffany Hernandez MD [address] [place] [address] Referring Internal Medicine 11/13/21 Monica Tinajero MD [address] [place] [address] Internal Medicine 05/01/22 Team Status: Active Member Role Status Dates Dr. Addie Holley DO Primary Care Provider Active Team Status: Inactive Member Role Status Dates Dr. Froylan Palmer MD Emergency Provider Active Sta rt: November 19, 2024 End: November 19, 2024 Dr. Addie Holley DO Primary Care Provider Active Start: November 19, 2024 End: November 19, 2024 Typists Supervisor Relationship Specialty Start Date End Date Addie Holley DO [address] [place] [address] PCP - General Family Medicine 08/22/24 Steffany Hernandez MD [address] [place] [address] Referring Internal Medicine 11/13/21 Monica Tinajero MD [address] [place] [address] Internal Medicine 05/01/22 Typists Supervisor Relationship Specialty Start Date End Date Addie Holley DO [address] [place] [address] PCP - General Family Medicine 08/22/24 Steffany Hernandez MD [address] [place] [address] Referring Internal Medicine 11/13/21 Monica Tinajero MD [address] [address] Internal Medicine 05/01/22 Team Status: Inactive Member Role Status Dates Dr. Froylan Palmer MD Attending Provider Active Sta rt: November 19, 2024 End: November 19, 2024 Dr. Froylan Palmer MD Emergency Provider Active Sta rt: November 19, 2024 End: November 19, 2024 Dr. Addie Holley DO Primary Care Provider Active Start: November 19, 2024 End: November 19, 2024 Team Status: Inactive Member Role Status Dates Dr. Addie Holley DO Primary Care Provider Active Start: January 02, 2025 End: January 03, 2025 Dr. Cale Dolan DO Emergency Provider Active Start: January 02, 2025 End: January 03, 2025 Typists Supervisor Relationship Specialty Start Date End Date Addie Holley DO [address] [place] [address] PCP - General Family Medicine 08/22/24 Steffany Hernandez MD [address] [place] [address] Referring Internal Medicine 11/13/21 Monica Tinajero MD [address] [place] [phone] Internal Medicine 05/01/22 Typists Supervisor Relationship Specialty Start Date End Date Akilah Wiggins APRN.FIRE INVESTIGATION MANAGER [facility] [place] [address] PCP - General Family Medicine 01/24/25 Steffany Hernandez MD [address] [address] Referring Internal Medicine 11/13/21 Monica Tinajero MD [address] [place] [address] Internal Medicine 05/01/22 Typists Supervisor Relationship Specialty Start Date End Date Akilah Wiggins APRN.FIRE INVESTIGATION MANAGER [address] [place] [address] PCP - General Family Medicine 01/24/25 Steffany Hernandez MD [address] [place] [address] Referring Internal Medicine 11/13/21 Monica Tinajero MD [address] [place] [address] Internal Medicine 05/01/22 Typists Supervisor Relationship Specialty Start Date End Date Akilah Wiggins APRN.FIRE INVESTIGATION MANAGER [address] [place] [address] PCP - General Family Medicine 01/24/25 Steffany Hernandez MD [address] [place] [address] Referring Internal Medicine 11/13/21 Monica Tinajero MD [address] [place] [address] Internal Medicine 05/01/22 Typists Supervisor Relationship Specialty Start Date End Date Akilah Wiggins APRN.FIRE INVESTIGATION MANAGER [address] [place] [address] PCP - General Family Medicine 01/24/25 Steffany Hernandez MD [address] [place] [address] Referring Internal Medicine 11/13/21 Monica Tinajero MD [address] [place] [address] Internal Medicine 05/01/22 Typists Supervisor Relationship Specialty Start Date End Date Akilah Wiggins APRN.FIRE INVESTIGATION MANAGER [address] [place] [address] PCP - General Family Medicine 01/24/25 Steffany Hernandez MD [address] [place] [address] Referring Internal Medicine 11/13/21 Monica Tinajero MD [address] [place] [phone] Internal Medicine 05/01/22 Typists Supervisor Relationship Specialty Start Date End Date Akilah Wiggins APRN.FIRE INVESTIGATION MANAGER [address] [place] [address] PCP - General Family Medicine 01/24/25 Steffany Hernandez MD [address] [place] [address] Referring Internal Medicine 11/13/21 Monica Tinajero MD [address] [place] [phone] Internal Medicine 05/01/22 Jimena Taylor MD [employer] Plant Supervisor 02/09/25 02/23/25 Typists Supervisor Relationship Specialty Start Date End Date Akilah Wiggins APRN.FIRE INVESTIGATION MANAGER [address] [place] [address] PCP - General Family Medicine 01/24/25 Steffany Hernandez MD [address] [place] [address] [address] [place] [address] Referring Internal Medicine 11/13/21 Monica Tinajero MD [address] [place] [phone] Internal Medicine 05/01/22 Jimena Taylor MD [employer] Plant Supervisor 02/09/25 02/23/25 Typists Supervisor Relationship Specialty Start Date End Date Akilah Wiggins, FERNANDO.FIRE INVESTIGATION MANAGER [address] [place] [address] PCP - General Family Medicine 01/24/25 Steffany Hernandez MD [address] [place] [address] Referring Internal Medicine 11/13/21 Monica Tinajero MD [address] [place] [phone] Internal Medicine 05/01/22 Jimena Taylor MD [employer] Plant Supervisor 02/09/25 02/23/25 Typists Supervisor Relationship Specialty Start Date End Date Akilah Wiggins APRN.FIRE INVESTIGATION MANAGER [address] [place] [address] PCP - General Family Medicine 01/24/25 Steffany Hernandez MD [address] [facility] [address] [place] [address] Referring Internal Medicine 11/13/21 Monica Tinajero MD [address] [address] Internal Medicine 05/01/22 Jimena Taylor MD [employer] Plant Supervisor 02/09/25 02/23/25 Typists Supervisor Relationship Specialty Start Date End Date Akilah Wiggins APRN.FIRE INVESTIGATION MANAGER [address] [place] [address] PCP - General Family Medicine 01/24/25 Steffany Hernandez MD [facility] [address] [place] [address] Referring Internal Medicine 11/13/21 Monica Tinajero MD [address] [address] Internal Medicine 05/01/22 Jimena Taylor MD W[employer]ening Plant Supervisor 02/09/25 02/23/25 Typists Supervisor Relationship Specialty Start Date End Date Akilah Wiggins APRN.FIRE INVESTIGATION MANAGER [address] [place] [address] PCP - General Family Medicine 01/24/25 Steffany Hernandez MD [address] [facility] [address] [place] [address] Referring Internal Medicine 11/13/21 Monica Tinajero MD [address] [place] [address] Internal Medicine 05/01/22 Typists Supervisor Relationship Specialty Start Date End Date Akilah Wiggins APRN.FIRE INVESTIGATION MANAGER [address] [place] [address] PCP - General Family Medicine 01/24/25 Steffany Hernandez MD [address] [place] [address] Referring Internal Medicine 11/13/21 Monica Tinajero MD [address] [place] [phone] Internal Medicine 05/01/22 Typists Supervisor Relationship Specialty Start Date End Date Akilah Wiggins APRN.FIRE INVESTIGATION MANAGER [address] [place] [address] PCP - General Family Medicine 01/24/25 Steffany Hernandez MD [address] [place] [address] Referring Internal Medicine 11/13/21 Monica Tinajero MD [address] [place] [phone] Internal Medicine 05/01/22 ProviderJimena MD [employer] Plant Supervisor 02/09/25 02/23/25 Team Status: Active Member Role/Relationship Status Dates Akilah Wiggins , FAMILY AND DIVORCE LEGAL ASSISTANT-C Primary Care Provider Active Team Status: Inactive Member Role/Relationship Status Dates Dr. Froylan Palmer MD Attending Provider Active Sta rt: November 19, 2024 End: November 19, 2024 Dr. Froylan Palmer MD Emergency Provider Active Sta rt: November 19, 2024 End: November 19, 2024 Dr. Addie Holley DO Primary Care Provider Active Start: November 19, 2024 End: November 19, 2024 Team Status: Inactive Member Role/Relationship Status Dates Dr. Addie Holley DO Primary Care Provider Active Start: January 02, 2025 End: January 03, 2025 Dr. Cale Dolan DO Attending Provider Active Start: January 02, 2025 End: January 03, 2025 Dr. Cale Dolan DO Emergency Provider Active Start: January 02, 2025 End: January 03, 2025 Team Status: Active Member Role/Relationship Status Dates Dr. Russ Mancuso MD Attending Provider Active Start: February 14, 2025 Dr. Russ Mancuso MD Other Provider Active Sta rt: February 14, 2025 Akilah Wiggins , FAMILY AND DIVORCE LEGAL ASSISTANT-C Primary Care Provider Active Start: February 14, 2025 Akilah Wiggins , FAMILY AND DIVORCE LEGAL ASSISTANT-C Referring Provider Active Start: February 14, 2025 Team Status: Active Member Role/Relationship Status Dates Dr. Russ Mancuso MD Attending Provider Active Start: February 21, 2025 Dr. Russ Mancuso MD Other Provider Active Sta rt: February 21, 2025 Akilah Wiggins , FAMILY AND DIVORCE LEGAL ASSISTANT-C Primary Care Provider Active Start: February 21, 2025 Akilah Wiggins , FAMILY AND DIVORCE LEGAL ASSISTANT-C Referring Provider Active Start: February 21, 2025 Team Status: Inactive Member Role/Relationship Status Dates Dr. Russ Mancuso MD Attending Provider Active Start: February 28, 2025 End: March 12, 2025 Akilah Wiggins , FAMILY AND DIVORCE LEGAL ASSISTANT-C Primary Care Provider Active Start: February 28, 2025 End: March 12, 2025 Akilah Wiggins , FAMILY AND DIVORCE LEGAL ASSISTANT-C Referring Provider Active Start: February 28, 2025 End: March 12, 2025 Team Status: Active Member Role/Relationship Status Dates Dr. Russ Mancuso MD Attending Provider Active Start: February 28, 2025 Dr. Russ Mancuso MD Other Provider Active Sta rt: February 28, 2025 Akilah Wiggins , FAMILY AND DIVORCE LEGAL ASSISTANT-C Primary Care Provider Active Start: February 28, 2025 Akilah Wiggins , FAMILY AND DIVORCE LEGAL ASSISTANT-C Referring Provider Active Start: February 28, 2025 Team Status: Active Member Role/Relationship Status Dates Akilah Wiggins FAMILY AND DIVORCE LEGAL ASSISTANT-C Primary care physician Active Team Status: Inactive Member Role/Relationship Status Dates Dr. Addie Holley DO Primary care physician Active Start: January 02, 2025 End: January 03, 2025 Dr. Cale Dolan DO Attending physician Active Start: January 02, 2025 End: January 03, 2025 Dr. Cale Dolan DO Emergency Department Physician Active Start: January 02, 2025 End: January 03, 2025 Team Status: Active Member Role/Relationship Status Dates Dr. Russ Mancuso MD Attending physician Active Start: February 14, 2025 Dr. Russ Mancuso MD Nurse Practitioner Active Start: February 14, 2025 Akilah Wiggins , FAMILY AND DIVORCE LEGAL ASSISTANT-C Primary care physician Active Start: February 14, 2025 Akilahleo Wiggins , FAMILY AND DIVORCE LEGAL ASSISTANT-C Referring Provider Active Start: February 14, 2025 Team Status: Active Member Role/Relationship Status Dates Dr. Russ Mancuso MD Attending physician Active Start: February 21, 2025 Dr. Russ Mancuso MD Nurse Practitioner Active Start: February 21, 2025 Akilah Wiggins , FAMILY AND DIVORCE LEGAL ASSISTANT-C Primary care physician Active Start: February 21, 2025 Akilahleo Wiggins , FAMILY AND DIVORCE LEGAL ASSISTANT-C Referring Provider Active Start: February 21, 2025 Team Status: Inactive Member Role/Relationship Status Dates Dr. Russ Mancuso MD Attending physician Active Start: February 28, 2025 End: March 12, 2025 Akilah Wiggins , FAMILY AND DIVORCE LEGAL ASSISTANT-C Primary care physician Active Start: February 28, 2025 End: March 12, 2025 Akilah Wiggins , FAMILY AND DIVORCE LEGAL ASSISTANT-C Referring Provider Active Start: February 28, 2025 End: March 12, 2025 Team Status: Active Member Role/Relationship Status Dates Dr. Russ Mancuso MD Attending physician Active Start: February 28, 2025 Dr. Russ Mancuso MD Nurse Practitioner Active Start: February 28, 2025 Akilah Wiggins , FAMILY AND DIVORCE LEGAL ASSISTANT-C Primary care physician Active Start: February 28, 2025 Akilah Wiggins , FAMILY AND DIVORCE LEGAL ASSISTANT-C Referring Provider Active Start: February 28, 2025 Team Status: Active Member Role/Relationship Status Dates Dr. Russ Mancuso MD Attending physician Active Start: March 14, 2025 Akilah Wiggins , FAMILY AND DIVORCE LEGAL ASSISTANT-C Primary care physician Active Start: March 14, 2025 Akilah Wiggins , FAMILY AND DIVORCE LEGAL ASSISTANT-C Referring Provider Active Start: March 14, 2025 Team Status: Active Member Role/Relationship Status Dates Dr. Russ Mancuso MD Attending physician Active Start: March 14, 2025 Dr. Russ Mancuso MD Nurse Practitioner Active Start: March 14, 2025 JEROD Burch Primary care physician Active Start: March 14, 2025 JEROD Burch Referring Provider Active Start: March 14, 2025 Team Status: Inactive Member Role/Relationship Status Dates JEROD Burch Primary care physician Active Start: March 29, 2025 End: March 29, 2025 JEROD Burch Referring Provider Active Start: March 29, 2025 End: March 29, 2025 Dr. Shoaib Prado MD Attending physician Active Start: March 29, 2025 End: March 29, 2025 Team Status: Inactive Member Role/Relationship Status Dates Dr. Russ Mancuso MD Attending physician Active Start: March 14, 2025 End: April 11, 2025 JEROD Burch Primary care physician Active Start: March 14, 2025 End: April 11, 2025 JEROD Burch Referring Provider Active Start: March 14, 2025 End: April 11, 2025 Reason for Visit (unrecogniz ed section and content) Reason Comments Sinus Problem Was told she has hol es in her sinus after CT done [place] seen done for seizures Nasal Congestion Constant, eyes water getting worse sx for years. Throat Problem Problem swallowing a t times for 3 years. Reason Comments Consult Difficulty swallowin g- while eating/ solids, no pain, sx for the last 3 weeks Reason Comments Cough Cough chest congesti on Reason Comments Flank Pain R side, nausea, dizz iness, burning with urination Reason Comments Radiology CT Reason Comments Post Op Follow Up 12/27/23- Laparoscopi c appendectomy Reason Comments Post Op Appendectomy, Non He aling Umbilical Incision Reason Comments Establish Care Needs sleep apnea ma chine. Depression Reason Onset Date Comments ED Follow-up 09/26/2024 [place] [facility] Reason Onset Date Comments Results 10/12/2024 Reason Comments Forms Jennifer CPAP Supply Order Reason Comments PT Eval Specialty Diagnoses / Procedures Referred By Contac t Referred To Contact PHYSICAL THERAPY Diagnoses Chronic left shoulder pain Procedures CONSULT TO PHYSICAL THERAPY PHYSICAL THERAPY EVALUATION HIGH COMPLEX 45 MINS Addie Holley, DO [address] [place] [address] Phone: tel: fax: Shayy Dunbar, PT [address] [place] [address] Phone: tel: Referral ID Status Reason Start Date Expiration Date Visits Requested Visits Authorized [id number] Authorized Auto-Generat ed Referral 08/13/2024 07/12/2025 8 8 Reason Comments Procedure Specialty Diagnoses / Procedures Referred By Lakisha okeefe Referred To Contact SLEEP DISORDERS Diagnoses Obstructive sleep apnea (adult) (pediatric) Split Procedures POLYSOM 6/>YRS SLEEP W/CPAP 4/> ADDL SATISH ATTND PSG PAP TITRATION Margaret, Addie Archibald DO [address] [place] [address] Phone: tel: fax: [facility] [address] [place] [address] Phone: tel: fax: Referral ID Status Reason Start Date Expiration Date V isits Requested Visits Authorized [id number] Closed Clearance Not Met - Admin/Chairm an/Director Advise to Postpone/Res chedule or Not Proceed 08/29/2024 09/26/2024 1 1 Reason Onset Date Comments ED Follow-up 11/19/2024 [facility] 2024 Reason Comments Blurred Vision Both Eyes Reason Comments Forms [facility] Oxygen Order Reason Comments Trauma Right leg wound x 2 weeksNausea x 1 weekSore under belly x 1 week Reason Onset Date Comments ED Follow-up 01/04/2025 [place] [facility] 12/29/24, [facility] 01/02/25 Reason Comments Establish Care Reason Comments Medication Problem Reason Comments Cellulitis Reason Comments Patient Update Reason Comments Follow Up Reason Comments Cellulitis Under umbilicus Specialty Diagnoses / Procedures Referred By Lakisha okeefe Referred To Contact General Surgery Diagnoses Morbid obesity (HCC) Abdominal wall cellulitis Procedures OFFICE/OUTPATIENT [facility] 60 MINUTES Akilah Wiggins, HOME MAKER.FIRE INVESTIGATION MANAGER [address] [place] [address] Phone: tel: fax: Referral ID Status Reason Start Date Expiration Date V isits Requested Visits Authorized [id number] Closed PCP Requested Referral 01/24/2025 01/24/2026 1 1 Reason Comments Follow Up Reason Comments Faxed Referral [facility] Reason Onset Date Comments Results 02/16/2025 INFORMATION SOURCE (unrecogn ized section and content) DATE CREATED AUTHOR 05/22/2024 [facility] DATE CREATED AUTHOR AUTHOR'S ORGANIZ ATION 01/28/2025 [facility] DATE CREATED AUTHOR AUTHOR'S ORGANIZ ATION 02/18/2025 [facility] DATE CREATED AUTHOR AUTHOR'S ORGANIZ ATION 04/20/2025 [facility] DATE CREATED AUTHOR AUTHOR'S ORGANIZ ATION 04/24/2025 [facility] Goals (unrecognized section and content) Goals may be documented in a n alternate sectionGoals may be documented in an alternate sectionGoals may be documented in an alternate sectionGoals may be documented in an alternate sectionGoals may be documented in an alternate section FOR RECORDS PERTAINING TO PATIENTS WHO ARE OR HAVE BEEN ENROLLED IN A CHEMICAL DEPENDENCY/SUBSTANCEABUSE PROGRAM, SOME INFORMATION MAY BE OMITTED. This clinical summary was aggregated from multiple sources. Caution should be exercised in using it in the provision of clinical care. This summary normalizes information from multiple sources, and as a consequence, information in this document may materially change the coding, format and clinical context of patient data. In addition, data may be omitted in some cases. CLINICAL DECISIONS SHOULD BE BASED ON THE PRIMARY CLINICAL RECORDS. [facility]. provides no warranty or guarantee of the accuracy or completeness of information in this document.
[2025-07-03 22:45] LABS: Glucose, Dipstick Normal (Normal); Ketone-Dipstick Negative (Negative); Leukocyte Esterase-Dipstick Negative /ul (Negative); Nitrite-Dipstick Negative (Negative); Occult Blood-Urine 10 /ul (Negative); Protein-Dipstick 100 mg/dl (Negative); Specific Gravity, Urine 1.010 (1.002-1.030); Urine Bilirubin Dipstick Negative (Negative)
[2025-07-03 22:51] VITALS: PULSE 71; RESP 22
[2025-07-03 22:52] LABS: Color, Urine Yellow (Yellow)
[2025-07-03 22:53] LABS: Red Blood Cells-Urine 0-5 SEEN /hpf (0-5); Squamous Epithelial Cells - UA 0-5 SEEN /hpf (5-10)
[2025-07-03 22:59] LABS: AST(SGOT) 25 U/L (<=31); Alanine Aminotransfer ALT/SGPT 18 U/L (<=34); Albumin, Serum 4.1 g/dL (3.5-5.0); Alkaline Phosphatase 141 U/L (35-104); Anion Gap 11 (7-18); BUN 6 mg/dL (4-19); BUN/Creat Ratio 9.0 RATIO (10-20); Calcium,Total 9.5 mg/dL (7.6-11.0); Carbon Dioxide 27.6 mmol/L (20.0-29.0); Chloride 99 mmol/L (96-106); Globulin 3.6 g/dL (2.2-4.2); Glucose 95 mg/dL (70-99); Potassium 4.1 mmol/L (3.5-5.1)
[2025-07-03 23:11] LABS: Partial Thromboplast Time 32.0 Seconds (24.1-36.2)
[2025-07-03 23:18] VITALS: BP 163/125; PULSE 72; RESP 21; TEMP 36.7; O2SAT 97
--- NOTE | 2025-07-03 23:19 | CPS ---
[2251] x3 Duoneb given to pt. in ER
--- NOTE | 2025-07-03 23:20 | RAD_ITS ---
PROCEDURE: CHEST PA AND LATERAL 07/03/2025 REASON FOR EXAM: SOB TECHNIQUE: Procedure Code: RADCXR Modality: DX Procedure: CHEST PA AND LATERAL COMPARISON: 01/02/2025. FINDINGS: The heart is enlarged. Mixed reticular and consolidative opacities with vascular indistinctness in a pattern favoring edema. Small bilateral pleural effusions. RAD/Chest PA and Lateral IMPRESSION: Probable edema in the setting of cardiomegaly. Reading Location: [facility]
[2025-07-03 23:23] LABS: Prothrombin Time (Protime)PT. 15.0 SECONDS (11.7-14.9)
[2025-07-04] VITALS (13 sets, daily range): BP systolic 148–197; BP diastolic 75–95; PULSE 80–98; RESP 16–23; TEMP 36.4–37.1; O2SAT 90–97; BMI 69.9
--- NOTE | 2025-07-04 00:09 | EX.ED.DYSGE1 ---
HPI History of Present Illness Chief Complaint: Shortness of Breath Narrative Narrative: Patient is a 45-year-old female with past medical history anxiety, BRITTANY on CPAP, asthma, COPD who presented to the emergency department chief plaint of shortness of breath. Patient states that over the last several days she has had worsening shortness of breath and states her inhalers are not helping her therefore she came here to be further evaluated. She today denies any recent sick contacts states that she has coughing sputum up but it states that this is not worse than her usual. States that she has not any travels denies any history of blood clots. Patient states that she has not been on any steroids recently. [facility] Medical History Chest pain Dizziness Anxiety Right ventricular diastolic dysfunction Dependent edema Obstructive sleep apnea on CPAP Morbid obesity with BMI of 60.0-69.9, adult Non-pressure ulcer of right lower extremity with fat layer exposed Asthma Tobacco abuse Schizophrenia ADHD Hyperlipidemia GERD (gastroesophageal reflux disease) Toxoplasmosis chorioretinitis COPD (chronic obstructive pulmonary disease) Home Medications ?Medication ?Instructions ?Recorded ?Last Taken ?Type albuterol sulfate 90 mcg/actuation 2 puff inhalation Q4H PRN PRN 07/11/24 Unknown Rx aerosol inhaler (Ventolin HFA) Wheezing ##1 celecoxib 100 mg capsule 100 mg PO DAILY 01/02/25 Unknown History cetirizine 10 mg tablet 10 mg PO DAILY 01/02/25 Unknown History pantoprazole 40 mg tablet,delayed 40 mg PO DAILY 01/02/25 Unknown History release trazodone 50 mg tablet 100 mg PO QHS 01/02/25 Unknown History atorvastatin 10 mg tablet (Lipitor) 10 mg PO DAILY 02/14/25 Unknown History fluticasone 250 mcg-salmeterol 50 1 inh inhalation BID 02/14/25 Unknown History mcg/dose blistr powdr for inhalation (Advair Diskus) ipratropium 0.5 mg-albuterol 3 mg ml 02/14/25 Unknown History (2.5 mg base)/3 mL nebulization soln lumateperone 21 mg capsule 21 mg PO DAILY 02/14/25 Unknown History (Caplyta) omega-3 acid ethyl esters 1 gram cap PO 02/14/25 Unknown History capsule propranolol 20 mg tablet 20 mg PO BID 02/14/25 Unknown History venlafaxine 225 mg tablet,extended 225 mg PO DAILY 03/08/25 Unknown History release 24 hr bupropion HCl 150 mg 24 hr tablet, 300 mg PO DAILY 03/29/25 Unknown History extended release (Wellbutrin XL) venlafaxine 37.5 mg 37.5 mg PO QDAY depressive disorder 03/29/25 Unknown History capsule,extended release 24 hr doxycycline hyclate 100 mg capsule 100 mg PO BID 5 days #10 caps 07/04/25 Unknown Rx prednisone 50 mg tablet 50 mg PO DAILY 4 days #4 tabs 07/04/25 Unknown Rx Allergy/AdvReac Type Severity Reaction Status Date / Time nystatin Allergy Intermediate Rash Verified 07/03/25 21:35 Surgical History Hx of cholecystectomy Hx of appendectomy Social History household members: friend(s) Smoking Status: Former smoker alcohol intake: current alcohol intake frequency: holidays/special occasions only substance use type: does not use ROS ROS ED ROS Narrative Constitutional: Denies any fevers or chills Cardiovascular: Denies chest pain Respiratory: Complains of cough and shortness of breath as noted above Abdomen: Denies any abdominal pain nausea vomit diarrhea : Denies any urinary symptoms Neurological: Denies any numbness, weeks, tingling Musculoskeletal: Denies any back pain Skin: Denies any rashes or lesions EXAM Physical Exam Narrative Exam Narrative: General: Patient was lying in bed rest comfortably did not appear to be in acute distress Head: Atraumatic, normocephalic Eyes: PERRL bilaterally, EOMI bilaterally, no conjunctival injection noted Neck: Soft, supple, trachea midline Cardiovascular: Regular rate and rhythm Respiratory: Patient has poor air movement bilaterally however does have some end expiratory wheezing noted diffusely Extremities: +4/5 strength noted in the bilateral lower extremity Neurological: Patient following commands and that she was at [facility] year is 2024 Skin: Warm, dry, tact no rashes or lesions noted Const Vital Signs: 07/03/25 21:34 07/03/25 21:35 07/03/25 22:10 Temperature 97.1 F L 97.1 F L Temperature Source Oral Oral Pulse Rate 79 88 Respiratory Rate 30 H 25 H Respiratory Effort Short of Breath Labored Respiratory Depth Normal Respiratory Pattern Normal Blood Pressure 191/115 H 165/122 H Blood Pressure Mean 140 136 Pulse Ox 89 81 Oxygen Delivery Method Room Air Room Air Nasal Cannula Oxygen Flow Rate (L/min) 2 07/03/25 22:14 07/03/25 22:51 07/03/25 23:18 Temperature Temperature Source Pulse Rate 71 72 Respiratory Rate 22 H 21 H Respiratory Effort Respiratory Depth Respiratory Pattern Tachypnea Blood Pressure 163/125 H Blood Pressure Mean 137 Pulse Ox 97 Oxygen Delivery Method Nasal Cannula Nasal Cannula Oxygen Flow Rate (L/min) 07/03/25 23:18 07/04/25 00:00 Temperature 98.1 F 98.5 F Temperature Source Temporal Temporal Pulse Rate 72 93 Respiratory Rate 21 H 23 H Respiratory Effort Respiratory Depth Respiratory Pattern Blood Pressure 163/125 H 189/93 H Blood Pressure Mean 137 125 Pulse Ox 97 92 Oxygen Delivery Method Nasal Cannula Nasal Cannula Oxygen Flow Rate (L/min) MDM MDM MDM Narrative Medical decision making narrative: Patient is a 45-year-old female who presented to the emergency department with a chief complaint of shortness of breath and her inhalers not helping. On the differential diagnose includes but limited to ACS, pneumonia, pneumothorax, COPD exacerbation. Once workup is obtained reviewed she will be reevaluated. Patient was given 3 DuoNebs and Solu-Medrol. Patient's CBC reviewed showed a leukocytosis of 11,000, hemoglobin stable 13.3, platelet count was noted be 292. Patient INR normal at 1.2, PT of 15. Patient sodium is 130, potassium 4.1, creatinine of 0.65. Patient AST and ALT are 25 and 18 respectively. Patient's urinalysis reviewed and showed no evidence of infection. Patient's chest x-ray was reviewed by myself and by radiology showed probable edema in the setting of cardiomegaly. Patient ambulated here in the emergency department became hypoxic when she went to sit at the edge of the bed at 86%. AT this point time will discuss case with hospitalist for admission for COPD exacerbation patient was given Rocephin and azithromycin at 12:06 AM. Nursing came and notified me that the patient does not want to be admitted to the hospital. I went and discussed with her and she did state that 86% is good for her and a acute flare and she states that she does not want to be admitted to the hospital she wants to go home she notes that she is feeling better and she notes that she does have oxygen at home for as needed. Patient was advised to take the antibiotics as prescribed as well as the steroids that she will be prescribed. She was advised to return with worsening symptoms or any other concerns. She is agreeable this plan all question concerns answered she was discharged home in stable condition. Family member at bedside is agreeable with this plan as well. Lab Data Labs: Laboratory Results - last 24 hr 07/03/25 07/03/25 22:10 22:12 WBC 11.2 H RBC 5.14 Hgb 13.3 Hct 41.8 MCV 81.3 MCH 25.9 L MCHC 31.8 L RDW Std Deviation 48.5 H RDW Coeff of [place]ber[place] 16.9 H Plt Count 292 MPV 9.3 Immature Gran % (Auto) 2.100 H Neut % (Auto) 71.6 H Lymph % (Auto) 16.8 L Rock % (Auto) 6.5 Eos % (Auto) 2.2 Baso % (Auto) 0.8 Absolute Neuts (auto) 8.0 H Absolute Lymphs (auto) 1.88 Nucleated RBC % 0.2 PT 15.0 H INR 1.2 APTT 32.0 Sodium 138 Potassium 4.1 Chloride 99 Carbon Dioxide 27.6 Anion Gap 11 BUN 6 Creatinine 0.65 L Estim Creat Clear Calc 161.20 Est GFR (MDRD) Non-Af 112 BUN/Creatinine Ratio 9.0 L Glucose 95 Lactic Acid 1.4 Calcium 9.5 Total Bilirubin 0.97 AST 25 ALT 18 Alkaline Phosphatase 141 H Total Protein 7.6 Albumin 4.1 Globulin 3.6 Albumin/Globulin Ratio 1.1 Urine Color Yellow Urine Clarity Sl Cloudy Urine pH 6.5 Ur Specific Wright 1.010 Urine Protein 100 H Urine Glucose (UA) Normal Urine Ketones Negative Urine Occult Blood 10 H Urine Nitrite Negative Urine Bilirubin Negative Urine Urobilinogen Normal Ur Leukocyte Esterase Negative Urine RBC 0-5 SEEN Urine WBC 0-5 SEEN Ur Squamous Epith Cells 0-5 SEEN Urine Bacteria 1+ Urine Mucus 0 SEEN Radiography Diagnostic Testing: Clinical Impression(s) from Imaging Studies Chest X-Ray 07/03/25 23:20 IMPRESSION: Probable edema in the setting of cardiomegaly. Reading Location: [facility] Discharge Plan Triage Chief Complaint: Shortness of Breath ED Provider: Reagan Zhang Dx/Rx/DC Orders Clinical Impression: COPD exacerbation, GERD (gastroesophageal reflux disease), Obstructive sleep apnea on CPAP Prescriptions: New prednisone 50 mg tablet 50 mg PO DAILY 4 Days Qty: 4 0RF doxycycline hyclate 100 mg capsule 100 mg PO BID 5 Days Qty: 10 0RF No Action venlafaxine 225 mg tablet extended release 24hr 225 mg PO DAILY venlafaxine 37.5 mg capsule,extended release 24hr 37.5 mg PO QDAY albuterol sulfate [Ventolin HFA] 90 mcg/actuation HFA aerosol inhaler 2 puff inhalation Q4H PRN PRN (Reason: Wheezing) Qty: 1 0RF trazodone 50 mg tablet 100 mg PO QHS cetirizine 10 mg tablet 10 mg PO DAILY pantoprazole 40 mg tablet,delayed release (DR/EC) 40 mg PO DAILY celecoxib 100 mg capsule 100 mg PO DAILY fluticasone propion-salmeterol [Advair Diskus] 250-50 mcg/dose blister with device 1 inh inhalation BID ipratropium-albuterol 0.5 mg-3 mg(2.5 mg base)/3 mL solution for nebulization Patient Comments: use 1 vial twice daily scheduled and every 6 (SIX) hours NEEDED for SHORTNESS OF BREATH omega-3 acid ethyl esters 1 gram capsule PO atorvastatin [Lipitor] 10 mg tablet 10 mg PO DAILY propranolol 20 mg tablet 20 mg PO BID Caplyta 21 mg capsule 21 mg PO DAILY bupropion HCl [Wellbutrin XL] 150 mg tablet extended release 24 hr 300 mg PO DAILY Primary Care Provider: Katherine Hardin Referrals: Katherine Hardin, [facility] [Primary Care Provider, Medical] Activity Restrictions/Additional Instructions: Follow-up with your doctor in the outpatient setting. Take antibiotics and steroids as prescribed use your inhalers at home as prescribed. Return with worsening symptoms or any other concerns Print Language: Citizen Of [place] Disposition Disposition: Home, Self Care
--- NOTE | 2025-07-04 00:28 | ED.RN ---
patient states she does not want to be admitted to hospital for low oxygen. Patient states I have oxygen I can wear at home. Patient agreeable to IV antibiotics and leaving AMA.
[2025-07-04] MEDS: Azithromycin 500 MG in 0.9% Normal Saline (250mL Bag) 250 ML 250 MG IV ×2 (00:46→22:03)
--- NOTE | 2025-07-04 01:11 | ED.RN ---
pt refusing to wear cardiac technologist.
--- NOTE | 2025-07-04 01:24 | ED.RN ---
Patient refused to wear oxygen when ambulating. patient placed on pulse o2 monitor by STEWARD[employer] VESSEL. pt SpO2 level 78% on RA. RN advised patient to breathe thru her nose and out thru her mouth. pt states she doesn't get why her O2 levels are so low. Rn states I think thats why they want to admit you to run more tests and find out why. Patient states I really don't want to stay but I want answers. rn states we can't do that if you leave. Pt states fine, I will stay. Dr. Zhang notified.
--- OUTSIDE RECORDS SUMMARY | 2025-07-04 03:21 | XMS RPT_ITS | CCD ---
Author Organization [facility] Care Team Providers Care 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 Name Role Phone David SPANGLER, Steffany Unavailable David SPANGLER, Davidh Unavailable Lior SPANGLER, Monica Unavailable Lior SPANGLER, Monica Primary Care Provider [phone] David SPANGLER, Yatish Unavailable Lior SPANGLER, Marinn Unavailable Lior SPANGLER, Monica Primary Care Provider [phone] David SPANGLER, Yatish Unavailable Lior SPANGLER, Monica Primary Care Provider [phone] MONICA FERNANDEZ Primary Care Unavailable DAVID SPANGLER, DAVID Primary Care Unavailable DAVID SPANGLER, DAVID Primary Care Unavailable VIDYA SUNG CNP Attending Unavailable FERMIN BENTLEY MD Attending Unavailable DAVID SPANGLER, [facility] Primary Care Unavailable RYLEE DO-FACOG, VANDANA Vaca Attending Unavail able JARACH, MAZEN Primary Care Unavailable JARACH, MAZEN Primary Care Unavailable RYLEE DO-FACOG, VANDANA Vaca Attending Unavail able RYLEE DO-FACOG, VANDANA J Attending Unavail able JARACH, MAZEN Primary Care Unavailable DAVID SPANGLER, STEFFANY Primary Care Unavailable SIMON SWITCHBOARD AND CONTROL ROOM OPERATOR VIDYA Attending Unavailable DAVID SPANGLER, DAVID Primary Care Unavailable SIMON LAMB VIYDA Attending Unavailable RYLEE DO-FACOG, VANDANA Vaca Attending Unavail able JARACH, MAZEN Primary Care Unavailable RYLEE DO-FACOG, VANDANA J Referring Unavail able Hilda Holley DO Primary Care Provider [phone] Dr. Froylan Palmer MD Emergency Provider [phone] Hilda Holley DO Primary Care Provider [phone] Dr. Froylan Palmer MD Attending Provider [phone] Cale Dolan DO Emergency Provider Wilfred ROCKET ENGINE TESTER.SWITCHBOARD AND CONTROL ROOM OPERATOR, Akilah Primary Care Provider SHEETS, HILDA C Referring Unavailable SHEETS, HILDA C Primary Care Unavailable SELF Referring Unavailable JARACH, MAZEN Primary Care Unavailable SHEETS, HILDA C Attending Unavailable SHEETS, HILDA C Primary Care Unavailable JOURDAN WILSON Attending Unavailable BUDZIAK, LINDA BRANHAM Attending Unava ilable KNOBLE, AKILAH Primary Care Unavailable SHEETS, HILDA C Primary Care Unavailable SHEETS, HILDA C Referring Unavailable Provider Lucien SPANGLER Unavailable Unavailable JARACH, MAZEN Primary Care Unavailable PROVIDER, UNKNOWN Referring Unavailable JARACH, MAZEN Primary Care Unavailable PROVIDER, UNKNOWN Referring Unavailable JARACH, MAZEN Primary Care Unavailable AUGUST FISHER Attending Unavailable JENNIFER, PALOMO Consulting Unavailable KNMARINO, AKILAH Primary Care Unavailable OLESYA PATINO Admitting Unavailable Magdaleno PACHECO, Dr. Madsen Attending Provider Dr. Russ Mancuso MD Attending Provider Dr. Russ Mancuso MD Other Provider Wilfred OVERHEAD WORKER-C, Akilah Primary Care Provider Wilfred OVERHEAD WORKER-C, Akilah Referring Provider Margaret PACHECO, Dr. Real Primary Care Physician Dr. Cale Dolan DO Attending Physician Dr. Cale Dolan DO Emergency Department Physi allison Dr. Russ Mancuso MD Attending Physician Dr. Russ Mancuso MD Nurse Practitioner Wilfred OVERHEAD WORKER-C, Akilah Primary Care Physician Eve SPANGLER, Dr. Cramer Attending Physician Margaret, Hilda Primary Care Unavailable Froylan Palmer Attending Unavailable Margaret, Hilda Primary Care Unavailable Cale Dolan Attending Unavailable Shoaib Prado Attending Unavailable Knoble, Akilah Primary Care Unavailable Knoble, Akilah Referring Unavailable EveShoaib Attending Unavailable Eve, Dumfries Referring Unavailable Knoble, Akilah Primary Care Unavailable Knoble, Akilah Referring Unavailable Russ Mancuso Attending Unavailable Knoble, Akilah Primary Care Unavailable Russ Mancuso Attending Unavailable Knoble, Akilah Primary Care Unavailable Knoble, Akilah Referring Unavailable Froylan Palmer Attending Unavailable Care Physician, No Primary Primary Care Unava ilable KNOBLE, AKILAH Primary Care Unavailable KNOBLE, AKILAH Referring Unavailable KNOBLE, AKILAH Primary Care Unavailable PALOMO TORRES Attending Unavailable KNOBLE, AKILAH Referring Unavailable KNOBLE, AKILAH Attending Unavailable KNOBLE, AKILAH Primary Care Unavailable KNOBLE, AKILAH Referring Unavailable KNOBLE, AKILAH Attending Unavailable KNOBLE, AKILAH Primary Care Unavailable KNOBLE, AKILAH Attending Unavailable KNOBLE, AKILAH Primary Care Unavailable KNOBLE, AKILAH Referring Unavailable KNOBLE, AKILAH Primary Care Unavailable KNOBLE, AKILAH Primary Care Unavailable KNOBLE, AKILAH Referring Unavailable JOSELYN GREGG Attending Unavailable KNOBLE, AKILAH Primary Care Unavailable KNOBLE, AKILAH Referring Unavailable KNOBLE, AKILAH Primary Care Unavailable KNOBLE, AKILAH Referring Unavailable KNOBLE, AKILAH Primary Care Unavailable ERA SALGUERO Attending Unavailable SHEETS, HILDA C Primary Care Unavailable SHEETS, HILDA C Referring Unavailable SHEETS, HILDA C Primary Care Unavailable SHEETS, HILDA C Referring Unavailable KNOBLE, AKILAH Referring Unavailable KNOBLE, AKILAH Primary Care Unavailable SHEETS, HILDA C Primary Care Unavailable TAE TRIPLETT Attending Unavailable RAFA PARKS Attending Unavailable SHEETS, HILDA C Primary Care Unavailable Allergies Allergy Classification Reported Allergen(s) Allergy Type Date of Onset Reaction(s) Facility (19 sources) Nystatin; Translations: [NYSTATIN] Drug Allergy 01-24-2025 [facility] (1 source) Nystatin Drug Allergy 03-29-2025 [facility] Repository Medications Current Medications Medication Drug Class(es) Dates Sig (Normalized) Sig (Original) [id number] 200 actuat albuterol 0.09 mg/actuat metered dose inhaler (20 sources) beta2-Adrenergic Agonist Start: 12-29-2024 take 2 puff(s) by inhalation every four hours as needed for wheezing albuterol HFA (PROVENTIL HFA, VENTOLIN HFA) 90 mcg/actuation inhaler Inhale 2 puffs as instructed every 4 hours as needed for wheezing/shortnes s of breath. 1 each 1 12/29/2024 Active Start: 07-11-2024 albuterol HFA (PROVENTIL HFA, VENTOLIN HFA) 90 mcg/actuation inhaler Albuterol Sulfate (Ventolin Hfa) 90 mcg/actuation HFA aerosol inhaler Active 2 NMA INHALATION EVERY 4 HOURS NEEDED as needed for Wheezing July 11, 2024 1:00am 07/11/2024 Active Start: 07-11-2024 Start: 03-06-2022 take 2 puff(s) by in halation four times daily as needed PROAIR HFA 90 mcg/actuation inhaler Inhale 2 Puffs as instructed four times daily as needed. 0 03/06/2022 Active Comment on above: Inhale 2 Puffs as in structed four times daily as needed. albuterol 0.833 mg/ml / ipratropium bromide 0.167 mg/ml inhalation solution (20 sources) Anticholinergic, beta2-Adrenergic Agonist Start: 02-14-2025 Start: 03-18-2022 ipratropium-al buterol (DUONEB) 0.5 mg-3 mg(2.5 mg base)/3 mL nebu Use twice daily scheduled and every 6 hours as needed for Shortness of breath 03/18/2022 Active Comment on above: Use twice daily sche duled and every 6 hours as needed for Shortness of breath atomoxetine 25 mg oral capsule (5 sources) Norepinephrine Reuptake Inhibitor take 1 capsule by mouth once daily atomoxetine (STRATTERA) 25 mg capsule Take 25 mg by mouth once daily. 0 Active Comment on above: Take 25 mg by mouth once daily. atorvastatin 10 mg oral tablet (20 sources) HMG-CoA Reductase Inhibitor Start: 02-15-20 take 1 tablet by mouth once daily End: 02-07-2025 take 1 tablet by mouth once daily atorvastatin (LIPITOR) 10 mg tablet Take 10 mg by mouth once daily. 02/07/2025 Discontinued (Other) azithromycin 250 mg oral tablet (1 source) Macrolide Antimicrobial Start: 09-27-2024 End: 10-01-2024 take 1 tablet by mouth once daily azithromycin (ZITHROMAX) 250 mg tablet Take 1 tablet by mouth once daily for 4 days. Patient should start on September 27, 2024. 4 tablet 09/27/2024 10/01/2024 Active 24 hr buPROPion hydrochloride 150 mg extended release oral tablet (20 sources) Aminoketone Start: 03-29-2025 Start: 02-21-2025 take 1 tablet by osman th once daily buPROPion XL (WELLBUTRIN XL) 300 mg 24 hr tablet Indications: Morbid obesity (HCC) , Encounter for tobacco use cessation counseling Take 1 tablet by mouth once daily. 90 tablet 02/21/2025 Active Start: 01-24-2025 End: 03-29-2025 take 1 tablet by mouth once daily Bupropion Hcl (Wellbutrin Xl) 150 mg tablet extended release 24 hr Discontinued 150 mg PO DAILY February 14, 2025 12:00am March 29, 2025 2:16pm Start: 03-19-2022 take 1 tablet by osman th once daily buPROPion (WELLBUTRIN) 75 mg tablet Take 75 mg by mouth once daily. 0 03/19/2022 Active Comment on above: Take 75 mg by mouth once daily. busPIRone hydrochloride 5 mg oral tablet (2 sources) Start: 5 End: 5 take 1 tablet by mouth once daily at bedtime, then take 1 tablet by mouth twice daily busPIRone (BUSPAR) 5 mg tablet Take 1 tablet by mouth daily at bedtime for 7 days, THEN 1 tablet two times a day for 21 days. 49 tablet 08/22/2024 09/19/2024 Active cariprazine 1.5 mg oral capsule (6 sources) Atypical Antipsychotic Start: 2 take 1 capsule by mouth once daily after dinner VRAYLAR 1.5 mg capsule TAKE ONE CAPSULE BY MOUTH ONE TIME DAILY AFTER DINNER 0 03/19/2022 Active Comment on above: TAKE ONE CAPSULE BY MOUTH ONE TIME DAILY AFTER DINNER cefdinir 300 mg oral capsule (1 source) Cephalosporin Antibacterial Start: 5 End: 5 take 1 capsule by mouth twice daily cefdinir (OMNICEF) 300 mg capsule Take 1 capsule by mouth two times a day for 10 days. Patient should start on September 27, 2024. 20 capsule 09/27/2024 10/07/2024 Active celecoxib 100 mg oral capsule (20 sources) Nonsteroidal Anti-inflammatory Drug Start: 5 take 1 capsule by mouth once daily cetirizine hydrochloride 10 mg oral tablet (20 sources) Histamine-1 Receptor Antagonist Start: 5 take 1 tablet by mouth once daily Start: 10-18-2021 Cetirizine (ZY RTEC) 10 mg cap Take by mouth. 10/18/2021 Active Comment on above: Take by mouth. clonazePAM 0.5 mg oral tablet (6 sources) Benzodiazepine Start: 2 take 1 tablet by mouth twice daily clonazePAM (KLONOPIN) 0.5 mg tablet Take 0.5 mg by mouth twice daily. 0 03/03/2022 Active Comment on above: Take 0.5 mg by mouth twice daily. ferrous sulfate 325 mg oral tablet (6 sources) Start: 2 ferrous sulfate 325 mg (65 mg iron) tablet Take by mouth. 0 03/03/2022 Active Comment on above: Take by mouth. FLUoxetine 10 mg oral tablet (6 sources) Serotonin Reuptake Inhibitor Start: 2 take 1 tablet by mouth once daily in the morning FLUoxetine 10 mg tablet TAKE ONE TABLET BY MOUTH ONE TIME DAILY IN THE MORNING 0 01/08/2022 Active Comment on above: TAKE ONE TABLET BY M OUTH ONE TIME DAILY IN THE MORNING Fluticasone Propion-Salmeterol (20 sources) Corticosteroid, beta2-Adrenergic Agonist Start: 5 Start: 02-14-2025 Fluticasone Pr opion-Salmeterol (Advair Diskus) 250-50 mcg/dose blister with device Active 1 NMA INHALATION TWICE A DAY February 14, 2025 12:00am Complies with drug therapy Start: 02-14-2025 Fluticasone Pr opion-Salmeterol (Advair Diskus) 250-50 mcg/dose blister with device Active 1 NMA INHALATION TWICE A DAY February 14, 2025 12:00am Start: 03-06-2022 take 1 puff(s) by in halation twice daily ADVAIR DISKUS 250-50 mcg/dose inhaler Inhale 1 Puff as instructed twice daily. 03/06/2022 Active Comment on above: Inhale 1 Puff as ins tructed twice daily. lumateperone 42 mg oral capsule (14 sources) Start: 01-03-2025 CAPLYTA 42 mg capsule Take 21 mg by mouth once daily. Pt. Taking 21 mg 01/03/2025 Active Start: 01-03-2025 take 1 capsule by mo uth once daily CAPLYTA 42 mg capsule Take 1 capsule by mouth once daily. 01/03/2025 Active Lumateperone (3 sources) Start: 02-14-2025 take 1 capsule by mouth once d aily Start: 02-14-2025 take 1 capsule by mo uth once daily Lumateperone (Caplyta) 21 mg capsule Active 21 mg PO DAILY February 14, 2025 12:00am Complies with drug therapy Start: 02-14-2025 take 1 capsule by mo uth once daily Lumateperone (Caplyta) 21 mg capsule Active 21 mg PO DAILY February 14, 2025 12:00am nicotine 0.5 mg/actuat metered dose nasal spray (4 sources) Cholinergic Nicotinic Agonist Start: 02-21-2025 Nicotine (NICOTROL NS) 10 mg/mL spry Indications: Encounter for smoking cessation counseling Use 2 sprays in the nose every hour as needed. 10 mL 1 02/21/2025 Active pantoprazole 40 mg delayed release oral tablet (20 sources) Proton Pump Inhibitor Start: 03-17-2022 take 1 tablet by mouth once daily Comment on above: Take 40 mg by mouth every morning. predniSONE 50 mg oral tablet (11 sources) Start: 09-27-2024 End: 10-02-2024 take 1 tablet by mouth once daily predniSONE (DELTASONE) 50 mg Take 1 tablet by mouth once daily for 5 days. Patient should start on September 27, 2024. 5 tablet 09/27/2024 10/02/2024 Active Start: 07-11-2024 End: 02-14-2025 take 3 tablets by mouth once daily Prednisone 20 mg tablet Discontinued 60 mg PO DAILY July 11, 2024 1:00am February 14, 2025 2:52pm propranolol hydrochloride 20 mg oral tablet (19 sources) beta-Adrenergic Cruz Start: 02-14-2025 take 1 tablet by mouth twice daily Start: 11-30-2024 take 2 tablets by mo uth twice daily, then take 20-40 tablets by mouth three times daily propranolol (INDERAL) 10 mg tablet Take 20 mg by mouth two times a day. Taking 20-40 TID 11/30/2024 Active Start: 11-30-2024 take 1 tablet by osman th twice daily as needed for anxiety propranolol (INDERAL) 10 mg tablet TAKE 1 TABLET BY MOUTH TWICE DAILY and also TAKE 1 TABLET NEEDED FOR ANXIETY 11/30/2024 Active traZODone hydrochloride 50 mg oral tablet (20 sources) Serotonin Reuptake Inhibitor Start: 01-02-2025 take 2 tablets by mouth at bedtime Start: 01-02-2025 End: 01-24-2025 take 1 tablet by mouth once daily at bedtime traZODone (DESYREL) 50 mg tablet Indications: Chronic insomnia Take 1 tablet by mouth daily at bedtime. 01/24/2025 Active 24 hr venlafaxine 37.5 mg extended release oral capsule (20 sources) Serotonin and Norepinephrine Reuptake Inhibitor Start: 03-29-2025 take 1 capsule by mouth once daily Start: 03-08-2025 take 1 tablet by osman th once daily Start: 11-17-2023 End: 02-14-2025 take 1 tablet by mouth once daily Venlafaxine 225 mg tablet extended release 24hr Discontinued 225 mg PO DAILY January 02, 2025 12:00am February 14, 2025 2:52pm End: 08-22-2024 take 1 capsule by mouth once daily venlafaxine ER (EFFEXOR XR) 150 mg 24 hr capsule Take 150 mg by mouth once daily. 08/22/2024 Discontinued Completed/Discontinued Medications Medication Drug Class(es) Dates Sig (Normalized) Sig (Original) benoxinate hydrochloride 4 mg/ml / fluorescein sodium 2.5 mg/ml ophthalmic solution (2 sources) Diagnostic Dye Start: 11-28-2024 End: 11-28-2024 fluorescein-benoxi darline 0.25-0.4 % 1 drop (FLURESS) Start: 11-28-2024 End: 11-28-2024 1 drop, BOTH EYES, ONCE, 1 d ose, On Thu11/28/24 at 1530, FOR THE EYE cephalexin 500 mg oral capsule (4 sources) Cephalosporin Antibacterial Start: 01-03-2025 End: 02-14-2025 take 1 capsule by mouth every six hours Cephalexin 500 mg capsule Discontinued 500 mg PO EVERY 6 HOURS 40 0 January 03, 2025 12:00am February 14, 2025 2:50pm 12 hr dextromethorphan hydrobromide 30 mg / guaiFENesin 600 mg extended release oral tablet (20 sources) Uncompetitive K-ryrpke-T-aspartat e Receptor Antagonist, Sigma-1 Agonist Start: 09-23-2023 End: 01-24-2025 take 1 tablet by mouth twice daily dextromethorphan- guaiFENesin (MUCINEX DM) 30-600 mg per tablet Indications: Acute upper respiratory infection Take 1 tablet by mouth two times a day. 20 tablet 09/23/2023 01/24/2025 Discontinued Start: 02-13-2022 Dextromethorph an-guaiFENesin 5-100 mg/5 mL liqd Take by mouth. 0 02/13/2022 Active Comment on above: Take by mouth. Take 1 tablet by osman two times a day. doxycycline monohydrate 100 mg oral capsule (16 sources) Tetracycline-cla ss Drug Start: 02-21-2025 End: 03-29-2025 take 1 capsule by mouth twice daily Doxycycline Monohydrate 100 mg capsule Discontinued 100 mg PO TWICE A DAY February 21, 2025 12:00am March 29, 2025 2:14pm Start: 02-16-2025 End: 02-23-2025 take 1 capsule by mouth twice daily doxycycline hyclate (VIBRAMYCIN) 100 mg capsule Take 1 capsule by mouth two times a day for 7 days. 14 capsule 02/16/2025 02/23/2025 Start: 12-29-2024 End: 02-14-2025 take 1 capsule by mouth twice daily Doxycycline Monohydrate 100 mg capsule Discontinued 100 mg PO TWICE A DAY January 02, 2025 12:00am February 14, 2025 2:51pm ergocalciferol 1.25 mg oral capsule (11 sources) Provitamin D2 Compound Start: 03-03-2022 End: 08-22-2024 ergocalciferol 50,000 unit capsule (VITAMIN D2, DRISDOL) 03/03/2022 08/22/2024 Discontinued fluconazole 150 mg oral tablet (9 sources) Azole Antifungal Start: 01-24-2025 End: 03-29-2025 take 1 tablet by mouth every week Fluconazole 150 mg tablet Discontinued 150 mg PO EVERY WEEK February 14, 2025 12:00am March 29, 2025 2:14pm furosemide 20 mg oral tablet (11 sources) Loop Diuretic Start: 02-09-2025 End: 03-29-2025 take 1 tablet by mouth once daily Furosemide 20 mg tablet Discontinued 20 mg PO DAILY March 08, 2025 12:00am March 29, 2025 2:14pm levoFLOXacin 500 mg oral tablet (2 sources) Quinolone Antimicrobial Start: 02-09-2025 End: 02-16-2025 take 1 tablet by mouth once daily levoFLOXacin (LEVAQUIN) 500 mg tablet Take 1 tablet by mouth once daily for 7 days. 7 tablet 02/09/2025 02/16/2025 miconazole nitrate 0.02 mg/mg topical powder (6 sources) Azole Antifungal Start: 02-09-2025 End: 02-23-2025 miconazole 2 % powder Apply 1 application to affected area two times a day for 14 days. 85 g 02/09/2025 02/23/2025 nystatin 100 unt/mg topical powder (5 sources) Polyene Antifungal Start: 01-02-2025 End: 02-14-2025 Nystatin 100,000 unit/gram powder Discontinued 1 NMA TOPICAL THREE TIMES A DAY January 02, 2025 12:00am February 14, 2025 2:51pm Start: 12-29-2024 End: 01-12-2025 nystatin (MYCOSTATIN) powder Apply 1 application to affected area three times a day for 14 days. 60 g 1 12/29/2024 01/12/2025 Active omega-3 acid ethyl esters (retirement) 1000 mg oral capsule (20 sources) Start: 03-17-2022 End: 02-14-2025 [place]-3 Acid Ethyl Esters 1 gram capsule Discontinued 1 NMA PO DAILY January 02, 2025 12:00am February 14, 2025 2:51pm Comment on above: Take 1 g by mouth on ce daily. phenylephrine hydrochloride 25 mg/ml ophthalmic solution (2 sources) alpha-1 Adrenergic Agonist Start: 11-28-2024 End: 11-28-2024 PHENYLephrine 2.5 % 1 drop (AK-DILATE, DAYO-SYNEPHRINE) Start: 11-28-2024 End: 11-28-2024 1 drop, BOTH EYES, ONCE, 1 d ose, On Thu11/28/24 at 1530, FOR OPHTHALMIC USE ONLY PROTECT FROM LIGHT potassium chloride 10 meq extended release oral tablet (11 sources) Start: 02-09-2025 End: 03-29-2025 take 1 tablet by mouth once daily Potassium Chloride 10 mEq tablet extended release Discontinued 10 meq PO DAILY March 08, 2025 12:00am March 29, 2025 2:15pm risperiDONE 0.5 mg oral tablet (12 sources) Atypical Antipsychotic Start: 12-14-2024 End: 03-29-2025 take 1 tablet by mouth at bedtime Risperidone 0.5 mg tablet Discontinued 0.5 mg PO AT BEDTIME January 02, 2025 12:00am March 29, 2025 2:15pm sulfamethoxazole 800 mg / trimethoprim 160 mg oral tablet (9 sources) Dihydrofolate Reductase Inhibitor Antibacterial, Sulfonamide Antimicrobial Start: 02-09-2025 End: 02-16-2025 take 1 tablet by mouth twice daily sulfamethoxazole- trimethoprim (BACTRIM DS) 800-160 mg per tablet Take 1 tablet by mouth two times a day for 7 days. 14 tablet 02/09/2025 02/16/2025 Start: 01-24-2025 End: 01-31-2025 take 1 tablet by mouth twice daily sulfamethoxazole-trimethoprim (BACTRIM D S) 800-160 mg per tablet Indications: Morbid obesity (HCC) , Cellulitis and abscess of leg Take 1 tablet by mouth two times a day for 7 days. 14 tablet 01/24/2025 01/31/2025 Active Start: 12-18-2023 End: 08-22-2024 take 1 tablet by mouth every twelve hours sulfamethoxazole-trimethoprim (BACTRIM D S) 800-160 mg per tablet Take 1 tablet by mouth every 12 hours. 12/18/2023 08/22/2024 Discontinued tropicamide 10 mg/ml ophthalmic solution (2 sources) Anticholinergic Start: 11-28-2024 End: 11-28-2024 tropicamide 1 % 1 drop (MYDRIACYL) Start: 11-28-2024 End: 11-28-2024 1 drop, BOTH EYES, ONCE, 1 d ose, On Thu11/28/24 at 1530, FOR THE EYE Problems Active Problems Problem Classification Problem Date Documented Da te Episodic/Chronic Administrative/social admission (12 sources) Encounter for issue of repeat prescription; Translations: [Counseling procedure with explicit context] Onset: 5 03-08-2025 Episodic Anxiety disorders (20 sources) Generalized anxiety disorder; Translations: [Generalized anxiety disorder] Onset: 2 12-27-2023 Chronic Asthma (20 sources) Asthma without status asthmaticus; Translations: [Unspecified asthma, uncomplicated] Onset: 2 12-27-2023 Chronic Attention-deficit, conduct, and disruptive behavior disorders (2 sources) Adult attention deficit hyperactivity disorder ; Translations: [Attention-deficit hyperactivity disorder, unspecified type] 08-25-2024 Chronic Attention-deficit, conduct, and disruptive behavior disorders (20 sources) Attention deficit hyperactivity disorder; Translations: [Attention-deficit hyperactivity disorder, other type] 01-24-2025 Chronic Attention-deficit, conduct, and disruptive behavior disorders (2 sources) Attention-deficit hyperactivity disorder, unspecified type; Translations: [Adult ADHD] Onset: 5 Chronic Attention-deficit, conduct, and disruptive behavior disorders (1 source) Attention-deficit hyperactivity disorder, other type; Translations: [Other specified attention deficit hyperactivity disorder (ADHD)] Onset: 5 Chronic Blindness and vision defects (2 sources) Bilateral regular astigmatism; Translations: [Regular astigmatism, bilateral] 11-28-2024 Episodic Chronic obstructive pulmonary disease and bronchiectasis (20 sources) Chronic obstructive lung disease; Translations: [Chronic obstructive pulmonary disease, unspecified] Onset: 5 07-11-2024 Chronic Chronic obstructive pulmonary disease and bronchiectasis (1 source) Chronic obstructive pulmonary disease and bronchiectasis; Translations: [Asthma with chronic obstructive pulmonary disease (COPD) (HCC)] Onset: 5 Chronic ulcer of skin (9 sources) Ulcer of lower extremity; Translations: [Non-pressure chronic ulcer of unspecified part of right lower leg with fat layer exposed] Onset: 5 02-15-2025 Chronic Conditions associated with dizziness or vertigo (6 sources) Dizziness; Translations: [Dizziness and giddiness] Onset: 5 Episodic Disorders of lipid metabolism (20 sources) Hyperlipidemia; Translations: [Hyperlipidemia, unspecified] Onset: 3 12-27-2023 Chronic Esophageal disorders (20 sources) Gastroesophageal reflux disease; Translations: [Gastro-esophageal reflux disease without esophagitis] Onset: 2 12-27-2023 Chronic Genitourinary symptoms and ill-defined conditions (1 source) Dysuria; Translations: [Dysuria] 12-26-2023 Episodic Immunizations and screening for infectious disease (9 sources) Patient encounter status; Translations: [Encounter for immunization] Onset: 5 01-24-2025 Episodic Inflammation; infection of eye (except that caused by tuberculosis or sexually transmitteddisease) (9 sources) Bilateral chronic conjunctivitis of eyes; Translations: [Unspecified chronic conjunctivitis, bilateral] Onset: 5 02-07-2025 Chronic Miscellaneous mental health disorders (2 sources) Chronic insomnia; Translations: [Psychophysiologic insomnia] Onset: 5 01-24-2025 Chronic Mycoses (5 sources) Candidiasis of skin; Translations: [Candidiasis of skin and nail] Onset: 5 01-03-2025 Episodic Nausea and vomiting (1 source) Nausea; Translations: [Nausea] 12-26-2023 Episodic Nonspecific chest pain (3 sources) Chest pain; Translations: [Chest pain, unspecified] 03-08-2025 Episodic Open wounds of extremities (9 sources) Injury of right leg; Translations: [Unspecified open wound, right lower leg, initial encounter] Onset: 5 03-08-2025 Episodic Other aftercare (2 sources) Follow-up status; Translations: [Encounter for other specified aftercare] 01-05-2024 Episodic Other and ill-defined heart disease (6 sources) Right ventricular diastolic dysfunction; Translations: [Other ill-defined heart diseases] 02-21-2025 Chronic Other and ill-defined heart disease (3 sources) Other ill-defined heart diseases; Translations: [Other ill-defined heart diseases] Onset: Chronic Other circulatory disease (14 sources) Elevated blood-pressure reading without diagnosis of hypertension; Translations: [Elevated blood-pressure reading, without diagnosis of hypertension] Onset: 5 07-19-2024 Episodic Other connective tissue disease (1 source) Shoulder girdle weakness; Translations: [Other symptoms and signs involving the musculoskeletal system] 11-07-2024 Episodic Other connective tissue disease (19 sources) Myofascial pain syndrome; Translations: [Myalgia, other site] 01-24-2025 Episodic Other connective tissue disease (1 source) Other symptoms and signs involving the musculoskeletal system; Translations: [Weakness of left shoulder] Onset: Episodic Other connective tissue disease (1 source) Panniculitis; Translations: [Panniculitis, unspecified] 02-18-2025 Episodic Other connective tissue disease (1 source) Pain in right leg; Translations: [Pain of right lower extremity] Onset: Episodic Other connective tissue disease (1 source) Myalgia, other site; Translations: [MPD syndrome] Onset: Episodic Other diseases of veins and lymphatics (1 source) Venous stasis; Translations: [Other specified disorders of veins] 08-22-2024 Episodic Other eye disorders (5 sources) Bilateral floppy eyelid syndrome of eyes; Translations: [Other disorders affecting eyelid function] 11-19-2024 Episodic Other female genital disorders (1 source) Other specified noninflammatory disorders of vagina; Translations: [Vaginal discharge] Onset: Episodic Other gastrointestinal disorders (1 source) Dysphagia; Translations: [Other dysphagia] Episodic Other inflammatory condition of skin (1 source) Intertrigo; Translations: [Erythema intertrigo] 01-24-2025 Episodic Other inflammatory condition of skin (1 source) Erythema intertrigo; Translations: [Intertrigo] Onset: Episodic Other injuries and conditions due to external causes (4 sources) Injury of head; Translations: [Unspecified injury of head, initial encounter] 01-24-2025 Episodic Other injuries and conditions due to external causes (9 sources) Local infection of wound; Translations: [Other injury of unspecified body region, initial encounter] Onset: 5 02-07-2025 Episodic Other injuries and conditions due to external causes (1 source) Other injury of unspecified body region, initial encounter; Translations: [Wound infection] Onset: 5 Episodic Other injuries and conditions due to external causes (1 source) Unspecified injury of head, initial encounter; Translations: [Injury of head, initial encounter] Onset: 5 Episodic Other lower respiratory disease (1 source) Hypoxemia; Translations: [Hypoxia] Onset: 5 Episodic Other nervous system disorders (2 sources) Other chronic pain; Translations: [Chronic left shoulder pain] Onset: 5 Chronic Other nutritional; endocrine; and metabolic disorders (20 sources) Morbid obesity; Translations: [Morbid (severe) obesity due to excess calories] Onset: 2 12-27-2023 Chronic Other nutritional; endocrine; and metabolic disorders (8 sources) Body mass index 40+ - severely obese; Translations: [Morbid (severe) obesity due to excess calories] 02-15-2025 Chronic Other nutritional; endocrine; and metabolic disorders (2 sources) Morbid (severe) obesity due to excess calories; Translations: [Morbid (severe) obesity due to excess calories] Onset: 5 Chronic Other nutritional; endocrine; and metabolic disorders (1 source) Body mass index (BMI) 60.0-69.9, adult; Translations: [Body mass index [BMI] 60.0-69.9, adult] Onset: 5 Chronic Other screening for suspected conditions (not mental disorders or infectious disease) (3 sources) Encounter for screening, unspecified; Translations: [Encounter for screening for diabetes mellitus] Onset: 5 Episodic Other upper respiratory disease (1 source) Chronic rhinitis; Translations: [Chronic rhinitis] Chronic Other upper respiratory disease (5 sources) Acute bronchospasm; Translations: [Acute bronchospasm] 07-19-2024 Episodic Other upper respiratory infections (4 sources) Chronic pansinusitis; Translations: [Chronic pansinusitis] Onset: 5 Chronic Other upper respiratory infections (6 sources) Acute upper respiratory infection; Translations: [Acute upper respiratory infection, unspecified] 09-23-2023 Episodic Residual codes; unclassified (20 sources) Obstructive sleep apnea syndrome; Translations: [Obstructive sleep apnea (adult) (pediatric)] Onset: 2 Chronic Residual codes; unclassified (2 sources) Obstructive sleep apnea (adult) (pediatric); Translations: [BRTITANY (obstructive sleep apnea)] Onset: 4 Chronic Residual codes; unclassified (20 sources) Tobacco user; Translations: [Tobacco use] Onset: 4 12-28-2023 Episodic Residual codes; unclassified (20 sources) Acquired absence of other specified parts of digestive tract; Translations: [Other postprocedural status] Onset: 4 Resolved: 4 12-29-2023 Episodic Residual codes; unclassified (5 sources) Tobacco use and exposure - finding; Translations: [Tobacco use] 07-19-2024 Episodic Residual codes; unclassified (1 source) Edema; Translations: [Edema, unspecified] 12-28-2024 Episodic Residual codes; unclassified (1 source) Procedure and treatment not carried out because of patient's decision for other reasons; Translations: [Left against medical advice] Onset: 5 Episodic Residual codes; unclassified (8 sources) Dependent edema; Translations: [Edema, unspecified] 02-15-2025 Episodic Schizophrenia and other psychotic disorders (9 sources) Schizophrenia; Translations: [Schizophrenia, unspecified] Onset: 5 02-15-2025 Chronic Skin and subcutaneous tissue infections (20 sources) Cellulitis; Translations: [Cellulitis, unspecified] Onset: 3 12-27-2023 Episodic Substance-related disorders (20 sources) Nicotine dependence; Translations: [Nicotine dependence, unspecified, uncomplicated] Onset: 4 12-28-2023 Chronic Superficial injury; contusion (5 sources) Corneal abrasion; Translations: [Injury of conjunctiva and corneal abrasion without foreign body, right eye, initial encounter] 11-19-2024 Episodic Unclassified (1 source) Chronic pain of left upper limb 08-25-2024 Unclassified (1 source) Patient encounter status 01-24-2025 Past or Other Problems Problem Classification Problem Date Documented Date Episodic/Chronic Abdominal pain (20 sources) Right upper quadrant pain; Translations: [Right upper quadrant pain] Onset: 12-26-2023 Resolved: 12-29-2023 12-26-2023 Episodic Appendicitis and other appendiceal conditions (20 sources) Acute appendicitis with generalized peritonitis; Translations: [Acute appendicitis with generalized peritonitis without gangrene, perforation, or abscess] Onset: 12-26-2023 Resolved: 12-29-2023 12-29-2023 Episodic Diseases of white blood cells (20 sources) Leukocytosis; Translations: [Elevated white blood cell count, unspecified] Onset: 12-26-2023 Resolved: 02-09-2025 12-29-2023 Chronic E Codes: Fall (1 source) Unspecified fall, initial encounter; Translations: [Fall, initial encounter] Onset: 05-05-2024 Episodic Inflammation; infection of eye (except that caused by tuberculosis or sexually transmitteddisease) (10 sources) Unspecified acute conjunctivitis, bilateral; Translations: [Acute conjunctivitis of both eyes] Onset: 11-28-2024 11-19-2024 Episodic Nonmalignant breast conditions (1 source) Mastodynia; Translations: [Mastodynia] Onset: 03-01-2024 Episodic Other diseases of veins and lymphatics (1 source) Other specified disorders of veins; Translations: [Venous stasis] Onset: 08-22-2024 Episodic Other eye disorders (1 source) Unspecified disorder of eye and adnexa; Translations: [Unspecified disorder of eye and adnexa] Onset: 11-23-2024 Episodic Other lower respiratory disease (1 source) Shortness of breath; Translations: [Shortness of breath] Onset: 08-05-2024 Episodic Other non-traumatic joint disorders (20 sources) Chronic pain of left upper limb; Translations: [Pain in left shoulder] Onset: 11-07-2024 08-22-2024 Episodic Other non-traumatic joint disorders (2 sources) Pain in left shoulder; Translations: [Chronic left shoulder pain] Onset: 11-07-2024 Episodic Pleurisy; pneumothorax; pulmonary collapse (20 sources) Atelectasis; Translations: [Atelectasis] Onset: 12-27-2023 12-29-2023 Episodic Pneumonia (except that caused by tuberculosis or sexually transmitted disease) (1 source) Pneumonia, unspecified organism; Translations: [Community acquired pneumonia, unspecified laterality] Onset: 09-26-2024 Episodic Residual codes; unclassified (2 sources) Edema, unspecified; Translations: [Edema, unspecified] Onset: 12-28-2024 Episodic Residual codes; unclassified (2 sources) Tobacco use; Translations: [Tobacco use] Onset: 12-28-2023 Episodic Respiratory failure; insufficiency; arrest (adult) (20 sources) Acute respiratory failure; Translations: [Acute respiratory failure with hypoxia] Onset: 12-27-2023 Resolved: 12-29-2023 12-29-2023 Episodic Results Test Name Value Interpretation Reference Range Facility BACTERIAL VAGINOSIS NAATon 1 Lactobacillus crispatus+gasseri+kulkarni ii + Gardnerella vaginalis + Atopobium vaginae rRNA BILLY+probe Ql (Vag fld) Not detected Normal Not detected [facility] [place] Comment on above: Order Comment: Speci men Type: SWABOrdering Facility: [facility] Address: [address] [place] [address] Performed By: #### B VAMP, [id number] ####[facility] LABCLIA [id number] [address] [place] C. trachomatis+N. gonorrhoea e DNA BILLY+probe Ql (Unsp spec)on 04-18-2025 C. trachomatis rRNA BILLY+probe Ql (Unsp spec) Not detected Normal Not detected [facility] Comment on above: Order Comment: Speci men Type: SWABOrdering Facility: [facility] Address: [address] [place] [address] Performed By: #### B VAMP, [id number] ####[facility] LABCLIA [id number] [facility] [place] [place] [address] [place] N. gonorrhoeae rRNA BILLY+probe Ql (Unsp spec) Not detected Normal Not detected [facility] Comment on above: Order Comment: Speci men Type: SWABOrdering Facility: [facility] Address: [address] [place] [address] Performed By: #### B VAMP, [id number] ####[facility] LABCLIA [id number] [facility] [place] [address] [place] BABITA/TRICHOMONAS NAATon 1 C. glabrata RNA BILLY+probe Ql (Vag fld) Not detected Normal Not detected [facility] [place] Comment on above: Order Comment: Speci men Type: SWABOrdering Facility: [facility] Address: [address] [place] [address] Performed By: #### C VTV ####[facility] LABIA [id number] [address] Babita sp DNA BILLY+probe Ql (Vag fld) Not detected Normal Not detected [facility] Comment on above: Order Comment: Speci men Type: SWABOrdering Facility: [facility] Address: [address] [place] [address] Result Comment: The Babita species group target includes C. albicans, C. tropicalis, C. parapsilosis, and C. dubliniensis. Performed By: #### C VTV ####[facility] [id number] [address] T. vaginalis DNA BILLY+probe Ql (Unsp spec) Not detected Normal Not detected [facility] Comment on above: Order Comment: Speci men Type: SWABOrdering Facility: [facility] Address: [address] [place] [address] Performed By: #### C VTV ####[facility] [id number] [address] [place] CNOVon 04-18-2025 CNOV Office Visit (OBGYWM) BHUPENDRA HEBERT ([id number]) 1980 F Date Time Provider Department 04/18/25 4:10 PM JOSELYN GREGG OBGYWFina During your visit today, we recorded the following information about you: Blood pressure Weight Height 132/82 154.2 kg 1.524 m Joselyn Gregg MD 04/18/2025 5:02 PM Signed 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 Bhupendra is a 44 year old who presents for an annual gynecologic exam without complaints. No menses since IUD place Mirena? 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 PTSD (post-traumatic stress disorder) Schizophrenia (HCC) Tobacco abuse PAST SURGICAL HISTORY Procedure Laterality Date APPENDECTOMY 12/27/2023 Dr. Granados CHOLECYSTECTOMY HX INSERTION OF IUD 2023 Placed at [facility] FAMILY HISTORY Problem Relation Age of Onset Hypertension Mother COPD Mother Carotid Disease Mother Ischemic Heart Disease Mother stents Stomach Cancer Father 1994 Hypertension Maternal Grandmother Stomach Cancer Maternal Grandmother 80's Arthritis Maternal Grandmother Dementia Maternal Grandmother Leukemia Maternal Grandfather Cancer Paternal Grandfather No Ocular Disease No Family History SOCIAL HISTORY Social History Tobacco Use Smoking status: Every Day Current packs/day: 1.00 Average packs/day: 1.5 packs/day for 16.3 years (23.8 ttl pk-yrs) Types: Cigarettes Start date: 01/11/2024 Passive exposure: Never Smokeless tobacco: Never Vaping Use Vaping status: Never Used Substance Use Topics Alcohol use: Yes Comment: rare Drug use: Never REVIEW OF SYSTEMS Abdomen: No abdominal pain, nausea, vomiting, diarrhea, or constipation. No bloating, early satiety, indigestion, or increased flatulence. Bladder: No dysuria, gross hematuria, urinary frequency, urinary urgency, or incontinence. Breast: No breast lumps, nipple d/c, overlying skin changes, redness or skin retraction. Allergies and current medication updated:Yes SENSITIVE EXAM: The sensitive examination was discussed with the Patient or Patient's Authorized Angle Furnaceman. As applicable, any other physician, advance practice provider, medical student, or other health professional student that will be observing or involved in the sensitive examination for educational or training purposes was discussed with the Patient or Authorized Angle Furnaceman. The Patient or Authorized Angle Furnaceman has agreed to proceed with the sensitive examination. (Sensitive examination includes inspection and/or palpation of the breasts, pelvis, prostate and anorectal regions). EXAM: BP 132/82 Ht 5' 0 (1.52m) Wt 340 lb (154.2kg) LMP 09/14/2023 BMI 66.40 kg/(m2). GENERAL: pleasant, female in no apparent distress HEENT: Normocephalic, atraumatic, mucus membranes moist, and no lesions NECK: Supple, full range of motion, no adenopathy, and thyroid normal DERMATOLOGY: Normal, without lesions, non-icteric, and non-hirsute BREAST: soft, non-tender, symmetric, no dominant mass, normal nipple-areolar complex, no lymphadenopathy, and no nipple discharge CHEST: Normal inspiratory effort and apnic ABDOMEN: soft, non-tender, no masses, and pannus large PELVIC: external genitalia normal, normal Bartholin's glands, urethra, [place]'s glands, no vulvar lesions, no cervical lesions, good vaginal support, physiologic discharge present, normal appearing perineal body and perianal region, IUD strings visible BIMANUAL: precluded by obesity ASSESSMENT/PLAN: 1) Health maintenance: hx of BV wants checked 2) Contraception: IUD. Contraceptive options reviewed and information provided. 3) STD screening: bv CULTURES 4) Follow up one year or sooner as needed Joselyn Gregg MD Allergies As of Date: 04/18/2025 Noted Allergy Reaction NYSTATIN 01/24/2025 2 - Rash Date Reviewed: (more content not included)... Normal [facility] Cardiology Visit Reporton Cardiology Visit Report [facility] [address] [place] [address] OFFICE VISIT Date of Service: 03/29/25 MR#: [id number] Acct: [id number] Name: BHUPENDRA HEBERT Rep #: [id number] : 1980 Provider: Dr. Shoaib Prado MD Age/Sex: 44/F Location[facility] Status: Signed HPI HPI History of Present Illness Details: 44-year-old lady with a history of obstructive sleep apnea, morbid obesity who presents for discussion on an echocardiogram. It demonstrated an ejection fraction of 68% grade 3 diastolic dysfunction mildly dilated right ventricle with normal right ventricular systolic function. The left atrium was noted to be mildly dilated. She does have some shortness of breath with exertion and at rest no palpitations. Her blood pressure is under good control. She has had no dizziness or diaphoresis no near syncope or syncope. Her physical exam demonstrates clear lung bullard regular rate and rhythm no pedal edema her creatinine is noted to be 0.54 and her electrocardiogram demonstrates sinus rhythm with low voltages and a rate of 77 bpm. 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: No Is patient in pain?: No Allergies nystatin Allergy (Intermediate, Verified 03/29/25 14:13) Rash Medications ???Medication ???Instructions ???Recorded ???Confirmed ???Type albuterol sulfate 90 mcg/actuation 2 puff inhalation Q4H PRN PRN 03/29/25 Rx aerosol inhaler (Ventolin HFA) Wheezing ##1 celecoxib 100 mg capsule 100 mg PO DAILY 01/02/25 03/29/25 History cetirizine 10 mg tablet 10 mg PO DAILY 01/02/25 03/29/25 H istory pantoprazole 40 mg tablet,delayed 40 mg PO DAILY 01/02/25 03/29/25 History release trazodone 50 mg tablet 100 mg PO QHS 01/02/25 03/29/25 Hi story atorvastatin 10 mg tablet (Lipitor) 10 mg PO DAILY 02/14/25 5 History fluticasone 250 mcg-salmeterol 50 1 inh inhalation BID 02/14/25 History mcg/dose blistr powdr for inhalation (Advair Diskus) ipratropium 0.5 mg-albuterol 3 mg ml 02/14/25 03/29/25 History (2.5 mg base)/3 mL nebulization soln lumateperone 21 mg capsule 21 mg PO DAILY 02/14/25 03/29/25 H istory (Caplyta) omega-3 acid ethyl esters 1 gram cap PO 02/14/25 03/29/25 History capsule propranolol 20 mg tablet 20 mg PO BID 02/14/25 03/29/25 His tory venlafaxine 225 mg tablet,extended 225 mg PO DAILY 03/08/25 5 History release 24 hr bupropion HCl 150 mg 24 hr tablet, 300 mg PO DAILY 03/29/25 5 History extended release (Wellbutrin XL) venlafaxine 37.5 mg 37.5 mg PO QDAY depressive disorde r 03/29/25 03/29/25 History capsule,extended release 24 hr Ejection fraction %: 68 PFSH Medical History Chest pain Dizziness Anxiety Right ventricular diastolic dysfunction Dependent edema Obstructive sleep apnea on CPAP Morbid obesity with BMI of 60.0-69.9, adult Non-pressure ulcer of right lower extremity with fat layer exposed Asthma Tobacco abuse Schizophrenia ADHD Hyperlipidemia GERD (gastroesophageal reflux disease) Toxoplasmosis chorioretinitis COPD (chronic obstructive pulmonary disease) Surgical History Hx of cholecystectomy Hx of appendectomy Social History household members: friend(s) Smoking Status: Current every day smoker tobacco type: cigarettes alcohol intake: current alcohol intake frequency: holidays/special occasions only substance use type: does not use ROS Const Const: Negative for fatigue, weakness, daytime sleepiness or difficulty sleeping ENT ENT: Negative for dizziness or Nosebleed/epistaxis Cardio Chest Pain: No Palpitations: No Edema: None Resp Respiratory: Positive for SOB with activity; Negative for SOB at rest, SOB orthopnea SOB lying down or Cough GI GI: Positive for heartburn; Negative nausea or vomiting Neuro Neuro: Negative for dizziness, lightheadedness, near syncope or weakness Endo Endo: Negative for fatigue Cardiology Exam Const Appearance: cooperative, no acute distress, well developed and well groomed Nutritional Appearance: well nourished and overweight Orientation: alert, awake and oriented x3 May appear to be mildly cushingoid. Head Head: normal to inspection, normocephalic and atraumatic Ears: hearing grossly normal bilaterally and external ears normal Nose: external nose normal, nares normal, nasal (more content not included)... Normal [facility] History AND Physic kerwin 03-17-2025 Wound Ctr History & Physical [facility] [address] [place] [address] H P Exam - Wound Care 03/17/25 1334 MR#: [id number] Acct: [id number] Name: BHUPENDRA HEBERT Rep #: [id number] : 1980 44 From: Russ Mancuso MD PCP: Akilah Wiggins NP-C Status:REG RCR Location: History of Present Illness Date of Service: 03/14/25 Chief Complaint: Traumatic wound of the right [...] treated in various medical facilities, including the [facility] Emergency Department and the Emergency Department at the [facility]. She was seen at the [facility] ER on January 02, 2025, at which time she was treated with a prescription for cephalexin 500 mg p.o. every 6 hours for 10 days. More recently, the patient was evaluated in the Emergency Department at the [facility] on February 07, at which time [...] morbidly obese, with a BMI of 62.5. The patient admits to sleeping in a recliner. She is not active, and sits in idle fashion throughout most of each day. She denies a history of lower extremity thrombophlebitis. 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 Asthma Tobacco abuse Schizophrenia ADHD Hyperlipidemia GERD (gastroesophageal reflux disease) Toxoplasmosis chorioretinitis COPD (chronic obstructive pulmonary disease) Home Medications ???Medication ???Instructions ???Recorded ???Last Taken ???Type albuterol sulfate 90 mcg/actuation 2 puff inhalation Q4H PRN PRN Unknown Rx aerosol inhaler (Ventolin HFA) Wheezing ##1 celecoxib 100 mg capsule 100 mg PO DAILY 01/02/25 Unknown H istory cetirizine 10 mg tablet 10 mg PO DAILY 01/02/25 Unknown Hi story pantoprazole 40 mg tablet,delayed 40 mg PO DAILY 01/02/25 Unknown H istory release risperidone 0.5 mg tablet 0.5 mg PO QHS 01/02/25 Unknown His tory trazodone 50 mg tablet 100 mg PO QHS 01/02/25 Unknown His tory atorvastatin 10 mg tablet (Lipitor) 10 mg PO DAILY 02/14/25 Unknown History bupropion HCl 150 mg 24 hr tablet, 150 mg PO DAILY 02/14/25 Unknown History extended release (Wellbutrin XL) fluconazole 150 mg tablet 150 mg PO QWEEK 02/14/25 Unknown H istory fluticasone 250 mcg-salmeterol 50 1 inh inhalation BID 02/14/25 Unk nown History mcg/dose blistr powdr for inhalation (Advair Diskus) ipratropium 0.5 mg-albuterol 3 mg ml 02/14/25 Unknown History (2.5 mg base)/3 mL nebulization soln lumateperone 21 mg capsule 21 mg PO DAILY 02/14/25 Unknown Hi story (Caplyta) omega-3 acid ethyl esters 1 gram cap PO 02/14/25 Unknown History capsule propranolol 20 mg tablet 20 mg PO BID 02/14/25 Unknown Hist ory doxycycline monohydrate 100 mg 100 mg PO BID 02/21/25 Unknown His tory capsule doxycycline monohydrate 100 mg 100 mg PO BID 02/21/25 Unknown His tory capsule furosemide 20 mg tablet 20 mg PO DAILY 03/08/25 Unknown Hi story potassium chloride 10 mEq 10 meq PO DAILY 03/08/25 Unknown H istory tablet,extended release venlafaxine 225 mg tablet,extended 225 mg PO DAILY 03/08/25 Unknown History release 24 hr Allergy/AdvReac Type Severity Reaction Status Date / Time nystatin Allergy Intermediate Rash Verified 02/14/25 14:21 Surgical History Hx of cholecystectomy Hx of appendectomy Social History household members: friend(s) Smoking Status: Current every day smoker tobacco type: cigarettes alcohol intake: current alcohol intake frequency: holidays/special occasions only substance use type: does not use Physical Exam Const alert, oriented x (more content not included)... Normal [facility] W[facility] Ctr History AND Physic kerwin 03-02-2025 Wound Ctr History & Physical [facility] [address] [place] [address] H P Exam - Wound Care 03/02/25 1713 MR#: [id number] Acct: [id number] Name: BHUPENDRA HEBERT Rep #: [id number] : 1980 44 From: Russ Mancuso MD PCP: MORE BurchC Status:REG RCR Location: WC History of Present Illness Date of Service: [...] treated in various medical facilities, including the [facility] Emergency Department and the Emergency Department at the [facility]. She was seen at the [facility] ER on January 02, 2025, at which time she was treated with a prescription for cephalexin 500 mg p.o. every 6 hours for 10 days. More recently, the patient was evaluated in the Emergency Department at the [facility] on February 07, at which time [...] morbidly obese, with a BMI of 62.5. The patient admits to sleeping in a recliner. She is not active, and sits in idle fashion throughout most of each day. She denies a history of lower extremity thrombophlebitis. [facility] Medical History Dependent edema Obstructive sleep apnea on CPAP Morbid obesity with BMI of 60.0-69.9, adult Non-pressure ulcer of right lower extremity with fat layer exposed Wound of right lower extremity Asthma Tobacco abuse counseling Tobacco abuse Schizophrenia ADHD Hyperlipidemia GERD (gastroesophageal reflux disease) Toxoplasmosis chorioretinitis COPD (chronic obstructive pulmonary disease) Asthma Home Medications ???Medication ???Instructions ???Recorded ???Last Taken ???Type albuterol sulfate 90 mcg/actuation 2 puff inhalation Q4H PRN PRN Unknown Rx aerosol inhaler (Ventolin HFA) Wheezing ##1 celecoxib 100 mg capsule 100 mg PO DAILY 01/02/25 Unknown H istory cetirizine 10 mg tablet 10 mg PO DAILY 01/02/25 Unknown Hi story pantoprazole 40 mg tablet,delayed 40 mg PO DAILY 01/02/25 Unknown H istory release risperidone 0.5 mg tablet 0.5 mg PO QHS 01/02/25 Unknown His tory trazodone 50 mg tablet 100 mg PO QHS 01/02/25 Unknown His tory atorvastatin 10 mg tablet (Lipitor) 10 mg PO DAILY 02/14/25 Unknown History bupropion HCl 150 mg 24 hr tablet, 150 mg PO DAILY 02/14/25 Unknown History extended release (Wellbutrin XL) fluconazole 150 mg tablet 150 mg PO QWEEK 02/14/25 Unknown H istory fluticasone 250 mcg-salmeterol 50 1 inh inhalation BID 02/14/25 Unk nown History mcg/dose blistr powdr for inhalation (Advair Diskus) ipratropium 0.5 mg-albuterol 3 mg ml 02/14/25 Unknown History (2.5 mg base)/3 mL nebulization soln lumateperone 21 mg capsule 21 mg PO DAILY 02/14/25 Unknown Hi story (Caplyta) omega-3 acid ethyl esters 1 gram cap PO 02/14/25 Unknown History capsule propranolol 20 mg tablet 20 mg PO BID 02/14/25 Unknown Hist ory doxycycline monohydrate 100 mg 100 mg PO BID 02/21/25 Unknown His tory capsule doxycycline monohydrate 100 mg 100 mg PO BID 02/21/25 Unknown His tory capsule Allergy/AdvReac Type Severity Reaction Status Date [...] Consciousness: awake, oriented to person, oriented to (more content not included)... Normal [facility] 02-27-2025 [facility] Telephone (FAMWS) BHUPENDRA HEBERT ([id number]) 1980 F Date Time Provider Department 02/27/25 AKILAH WIGGINS [facility] During your visit today, we recorded the following information about you: Any Mendieta RN 02/27/2025 9:33 AM Signed Karla from [facility] calls and is requesting referral, office visit notes, face sheet, and results to be faxed to [phone]. Faxed as requesting. Any Mendieta RN Allergies As of Date: 02/27/2025 Noted Allergy Reaction NYSTATIN 01/24/2025 2 - Rash Date Reviewed: 02/21/2025 Reviewed by: Rima Mcrae MA - Fully Assessed Reason for Visit: Faxed Referral [Other] Cmt: Cardiology-[facility] Prescriptions as of 02/27/2025 - Nicotine (NICOTROL NS) 10 mg/mL spry Use 2 sprays in the nose every hour as needed. - buPROPion XL (WELLBUTRIN XL) 300 mg 24 hr tablet Take 1 tablet by mouth once daily. - furosemide (LASIX) 20 mg tablet Take 1 tablet by mouth once daily. - potassium chloride (K-TAB) 10 mEq tablet Take 1 tablet by mouth once daily. - CAPLYTA 42 mg capsule Take 21 mg by mouth once daily. Pt. Taking 21 mg - traZODone (DESYREL) 50 mg tablet Take 1 tablet by mouth daily at bedtime. - albuterol HFA (PROVENTIL HFA, VENTOLIN HFA) 90 mcg/actuation inhaler Inhale 2 puffs as instructed every 4 hours as needed for wheezing/shortness of breath. - propranolol (INDERAL) 10 mg tablet Take 20 mg by mouth two times a day. Taking 20-40 TID - albuterol HFA (PROVENTIL HFA, VENTOLIN HFA) 90 mcg/actuation inhaler Albuterol Sulfate (Ventolin Hfa) 90 mcg/actuation HFA aerosol inhaler Active 2 NMA INHALATION EVERY 4 HOURS NEEDED as needed for Wheezing July 11, 2024 1:00am - celecoxib (CELEBREX) 100 mg capsule Take 100 mg by mouth once daily. - Cetirizine (ZYRTEC) 10 mg cap Take by mouth. - ADVAIR DISKUS 250-50 mcg/dose inhaler Inhale 1 Puff as instructed twice daily. - ipratropium-albutero l (DUONEB) 0.5 mg-3 mg(2.5 mg base)/3 mL nebu Use twice daily scheduled and every 6 hours as needed for Shortness of breath - omega-3 acid ethyl esters (LOVAZA) 1 gram capsule Take 1 g by mouth once daily. - pantoprazole DR (PROTONIX) 40 mg tablet Take 40 mg by mouth every morning. 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] ADHD (attention deficit hyperactivity disorder)* Elevated blood pressure reading without diagnos*02/07/2025 Wound infection [T14.8XXA, L08.9] 02/07/2025 Cellulitis of right lower extremity [L03.115] 02/07/2025 Leukocytosis [D72.829] 02/07/2025 02/09/2025 Chronic conjunctivitis of both eyes [H10.403] 02/07/2025 Encounter Status:Closed by ANY MENDIETA on 02/27/25 Normal [facility] ABHAY SCREENING W TOMOon 02-24 ABHAY SCREENING W RAFFI * * *Final Report* * * DATE OF EXAM: Feb 24 2025 9:24AM [facility] 0582 - ABHAY SCREENING W RAFFI / PROCEDURE REASON: Encounter for screening mammogram for breast cancer * * * * Physician Interpretation * * * * RESULT: [facility] [place] [address] #[id number] - ABHAY SCREENING W RAFFI HISTORY: 44 year-old patient presents for screening. Patient is asymptomatic in both breasts. Patient states no personal history of breast cancer. COMPARISON STUDIES: The present examination has been compared to prior imaging studies dated 03/01/2024 (ultrasound) and 03/01/2024 (mammogram). MAMMOGRAM TECHNIQUE: The study was acquired using full field digital technology and interpreted from soft copy. Digital Breast Tomosynthesis (DBT) images were obtained and used to assist in the interpretation of this examination. MAMMOGRAM FINDINGS: There are scattered areas of fibroglandular density. No suspicious masses, calcifications or other abnormalities are seen in either breast. There are no significant interval changes. IMPRESSION: There is no mammographic evidence of malignancy in either breast. Routine screening mammogram is recommended. Annual mammogram will be due in 1 year. BI-RADS Category 1: Negative RISK: Based on the Tyrer-Cuzick (TC) risk assessment model, this patient has a 10.0% lifetime risk of developing breast cancer, meaning they are at average risk for developing breast cancer. However, this is only an estimate based on available history provided on the patient's questionnaire. We encourage all patients to talk with their providers about these results, further recommendations for managing breast health, and appropriate supplemental screening options if the patient has dense breast tissue. Interpreting Radiologist: Aleida Bone M.D. Electronically signed on: 02/25/2025 Welder Gun: TYREL Transcribe Date/Time: Feb 24 2025 8:59A Dictated by: ALEIDA BONE MD This examination was interpreted and the report reviewed and electronically signed by: ALEIDA BONE MD on Feb 25 2025 10:04AM EST [id number] CN Normal [facility] Wound Ctr History AND Physic kerwin 02-22-2025 Wound Ctr History & Physical [facility] [address] [place] [address] H P Exam - Wound Care 02/22/25 1830 MR#: [id number] Acct: [id number] Name: BHUPENDRA HEBERT Rep #: [id number] : 1980 44 From: Russ Mancuso MD PCP: Akilah Wiggins NP-C Status:REG RCR Location: [...] treated in various medical facilities, including the [facility] Emergency Department and the Emergency Department at the [facility]. She was seen at the [facility] ER on January 02, 2025, at which time she was treated with a prescription for cephalexin 500 mg p.o. every 6 hours for 10 days. More recently, the patient was evaluated in the Emergency Department at the [facility] on February 07, at which time [...] morbidly obese, with a BMI of 62.5. The patient admits to sleeping in a recliner. She is not active, and sits in idle fashion throughout most of each day. She denies a history of lower extremity thrombophlebitis. [facility] Medical History Dependent edema Obstructive sleep apnea on CPAP Morbid obesity with BMI of 60.0-69.9, adult Non-pressure ulcer of right lower extremity with fat layer exposed Wound of right lower extremity Asthma Tobacco abuse counseling Tobacco abuse Schizophrenia ADHD Hyperlipidemia GERD (gastroesophageal reflux disease) Toxoplasmosis chorioretinitis COPD (chronic obstructive pulmonary disease) Asthma Home Medications ???Medication ???Instructions ???Recorded ???Last Taken ???Type albuterol sulfate 90 mcg/actuation 2 puff inhalation Q4H PRN PRN Unknown Rx aerosol inhaler (Ventolin HFA) Wheezing ##1 celecoxib 100 mg capsule 100 mg PO DAILY 01/02/25 Unknown H istory cetirizine 10 mg tablet 10 mg PO DAILY 01/02/25 Unknown Hi story pantoprazole 40 mg tablet,delayed 40 mg PO DAILY 01/02/25 Unknown H istory release risperidone 0.5 mg tablet 0.5 mg PO QHS 01/02/25 Unknown His tory trazodone 50 mg tablet 100 mg PO QHS 01/02/25 Unknown His tory atorvastatin 10 mg tablet (Lipitor) 10 mg PO DAILY 02/14/25 Unknown History bupropion HCl 150 mg 24 hr tablet, 150 mg PO DAILY 02/14/25 Unknown History extended release (Wellbutrin XL) fluconazole 150 mg tablet 150 mg PO QWEEK 02/14/25 Unknown H istory fluticasone 250 mcg-salmeterol 50 1 inh inhalation BID 02/14/25 Unk nown History mcg/dose blistr powdr for inhalation (Advair Diskus) ipratropium 0.5 mg-albuterol 3 mg ml 02/14/25 Unknown History (2.5 mg base)/3 mL nebulization soln lumateperone 21 mg capsule 21 mg PO DAILY 02/14/25 Unknown Hi story (Caplyta) omega-3 acid ethyl esters 1 gram cap PO 02/14/25 Unknown History capsule propranolol 20 mg tablet 20 mg PO BID 02/14/25 Unknown Hist ory doxycycline monohydrate 100 mg 100 mg PO BID 02/21/25 Unknown His tory capsule doxycycline monohydrate 100 mg 100 mg PO BID 02/21/25 Unknown His tory capsule Allergy/AdvReac Type Severity Reaction Status Date [...] oriented to person, oriented to place and o (more content not included)... Normal [facility] Basic metabolic 2000 panelon 02-21-2025 Anion gap [Moles/Vol] 11 mmol/L Normal 8-15 [facility] Comment on above: Order Comment: Speci men Type: BLOOD SPECIMENOrdering Facility: [facility] Address: [address] [place], [place] [address] Performed By: #### 2 4321-2 ####[facility] LABCLIA [id number] [address] [address] [place] Calcium [Mass/Vol] 9.5 mg/dL Normal 8.5-10.2 [facility] Comment on above: Order Comment: Speci men Type: BLOOD SPECIMENOrdering Facility: [facility] Address: [address] [place] [address] Performed By: #### 2 4321-2 ####[facility] LABCLIA [id number] [facility] [place] [id number] [place] Chloride [Moles/Vol] 103 mmol/L Normal 98-107 [facility] Comment on above: Order Comment: Speci men Type: BLOOD SPECIMENOrdering Facility: [facility] Address: [address] [place] [address] Performed By: #### 2 4321-2 ####[facility] LABCLIA [id number] [place] [id number] [place] CO2 [Moles/Vol] 24 mmol/L Normal 22-30 [facility] Comment on above: Order Comment: Speci men Type: BLOOD SPECIMENOrdering Facility: [facility] Address: [address] [place], [place] [id number] Performed By: #### 2 4321-2 ####[facility] LABCLIA [id number] [facility] [place] [id number] [place] Creatinine [Mass/Vol] 0.54 mg/dL Low 0.58-0.96 [facility] Comment on above: Order Comment: Speci men Type: BLOOD SPECIMENOrdering Facility: [facility] Address: [address] [place], [place] [id number] Performed By: #### 2 4321-2 ####[facility] LABCLIA [id number] [place] [address] [place] eGFRcr SerPlBld CKD-EPI 2020 118 mL/min/1.73m??? Normal >=60 [facility] Comment on above: Order Comment: Narinder steven Type: BLOOD SPECIMENOrdering Facility: [facility] Address: [address] [place] [address] Result Comment: Reyna mated Glomerular Filtration Rate (eGFR) is calculated using the 2020 CKD-EPI creatinine equation. This equation utilizes serum creatinine, sex, and age as parameters. The creatinine assay has traceable calibration to isotope dilution-mass spectrometry. Refer to KDIGO guidelines for clinical interpretation. In patients with unstable renal function, e.g. those with acute kidney injury, the eGFR may not accurately reflect actual GFR. Performed By: #### 2 4321-2 ####[facility] LABCLIA [id number] [place] [address] [place] Glucose [Mass/Vol] 101 mg/dL High 74-99 [facility] Comment on above: Order Comment: Narinder steven Type: BLOOD SPECIMENOrdering Facility: [facility] Address: [address] [place] [address] Result Comment: The [place] Diabetes Association (ADA) provides guidance for cutoff values for fasting glucose and random glucose. The ADA defines fasting as no caloric intake for at least 8 hours. Fasting plasma glucose results between 100 to 125 mg/dL indicate increased risk for diabetes (prediabetes). Fasting plasma glucose results greater than or equal to 126 mg/dL meet the criteria for diagnosis of diabetes. In the absence of unequivocal hyperglycemia, results should be confirmed by repeat testing. In a patient with classic symptoms of hyperglycemia or hyperglycemic crisis, random plasma glucose results greater than or equal to 200 mg/dL meet the criteria for diagnosis of diabetes. Reference: Standards of Medical Care in Diabetes 2016, [place] [employer] Association. Diabetes Care. 2016.39(Suppl 1). Performed By: #### 2 4321-2 ####[facility] LABCLIA [id number] [place] [id number] [place] Potassium [Moles/Vol] 4.3 mmol/L Normal 3.7-5.1 [facility] Comment on above: Order Comment: Speci men Type: BLOOD SPECIMENOrdering Facility: [facility] Address: [address] [place] [address] Performed By: #### 2 4321-2 ####[facility] LABCLIA [id number] [address] [address] [place] Sodium [Moles/Vol] 138 mmol/L Normal 136-144 [facility] Comment on above: Order Comment: Speci men Type: BLOOD SPECIMENOrdering Facility: [facility] Address: [address] [place] [address] Performed By: #### 2 4321-2 ####[facility] LABIA [id number] [place] [id number] [place] Urea nitrogen [Mass/Vol] 9 mg/dL Normal 7-21 [facility] Comment on above: Order Comment: Speci men Type: BLOOD SPECIMENOrdering Facility: [facility] Address: [address] [place] [address] Performed By: #### 2 4321-2 ####[facility] LABIA [id number] [place] [id number] [place] CNOVon 02-21-2025 CNOV Office Visit (ROSSIWS) ANUPBHUPENDRA Makayla ([id number]) 1980 F Date Time Provider Department 02/21/25 4:00 PM AKILAH WIGGINS During your visit today, we recorded the following information about you: Pulse Blood pressure Weight 89/minute 142/77 147 kg Akilah Wiggins APRN.SWITCHBOARD AND CONTROL ROOM OPERATOR 02/21/2025 4:16 PM Signed Transitional Care Management TCM Eligibility Documentation Outreach completed via text messaging service. Provider Documentation Bhupendra Hebert is a 44 year old female [...] on doxycycline. Currently receiving wound care with [facility] wound center. Jaylin boot to right leg. [...] BUPROPION XL 300 MG 24 HR TAB MALI Burch Danielle, APRN.CNP 02/21/2025 4:07 PM Signed -Call shu ENT -Call [facility] Referring Provider: AKILAH WIGGINS [[id number]] Allergies As of Date: 02/21/2025 Noted Allergy Reaction NYSTATIN 01/24/2025 2 - Rash Date Reviewed: 02/21/2025 Reviewed by: Rima Mcrae MA - Fully Assessed Reason for Visit: Follow Up [171] Primary Visit Diagnosis:Cellulitis and abscess of leg [L03.119, L02.419] Other Visit Diagnoses:Right ventricular diastolic dysfunction [I51.89] Chronic sphenoidal sinusitis [J32.3] Encounter for smoking cessation counseling [Z71.6] Morbid obesity (HCC) [E66.01] Encounter for tobacco use cessation counseling [Z71.6] Order(s):BASIC METABOLIC PANEL [SQBMP] Order #: [id number] FUTURE CONSULT TO CARDIOLOGY [9003] Order #: [id number]: 1 FUTURE CONSULT TO ENT [854] Order #: [id number]: 1 FUTURE Nicotine (NICOTROL NS) 10 mg/mL spryUse 2 sprays in the nose every hour as needed.Disp: 10 mLRfl: 1 buPROPion XL (WELLBUTRIN XL) 300 mg 24 hr tabletTake 1 tablet by mouth once daily.Disp: 90 tabletRfl: 0 Prescriptions as of 02/21/2025 - Nicotine (NICOTROL NS) 10 mg/mL spry Use 2 sprays in the nose every hour as needed. - buPROPion XL (WELLBUTRIN XL) 300 mg 24 hr tablet Take 1 tablet by mouth once daily. - doxycycline hyclate (VIBRAMYCIN) 100 mg capsule (more content not included)... Normal [facility] MR Brain WO contraston 02-20 IMPRESSION: Normal MRI brain for age. No abnormal susceptibility artifact in the brain parenchyma. No evidence of an extra-axial fluid collection. Severe inflammatory changes in the sphenoid sinus and mastoid air cells bilaterally. Welder Gun: PSCB Transcribe Date/Time: Feb 20 2025 7:22P Dictated by : MYRNA MOTLEY MD This examination was interpreted and the report reviewed and electronically signed by: MYRNA MOTLEY MD on Feb 20 2025 7:24PM [facility] DIVISION OF RADIOLOGY * * *Final Report* * * DATE OF EXAM: Feb 20 2025 4:23PM [facility] 0294 - MRI BRAIN WO IVCON / PROCEDURE REASON: multiple diagnoses * * * * Physician Interpretation * * * * EXAMINATION: MRI BRAIN WO IVCON CLINICAL HISTORY: Traumatic brain injury. Generalized anxiety disorder. TECHNIQUE: Routine noncontrast MRI protocol including diffusion images. MQ: MRBWO_2 COMPARISON: CT brain from May 05, 2024. RESULT: Acute Change: There is no evidence of restricted diffusion to suggest an acute infarct. Hemorrhage: No evidence of prior parenchymal hemorrhage on the susceptibility weighted images. Mass Lesion/ Mass Effect: No evidence of an intracranial mass or extra-axial fluid collection. No significant mass effect. Chronic Change: The white matter is within normal limits of signal intensity for age. Parenchyma: No significant volume loss for age. The brain parenchyma is otherwise within normal limits of signal intensity and morphology. Ventricles: Normal caliber and morphology. Skull Base: Hypothalamic and pituitary region are grossly normal. Craniocervical junction is normal. No significant marrow replacement process. Vasculature: Major intracranial arterial structures, and dural venous sinuses show typical flow void, suggesting patency by spin echo criteria. Other: There is subtotal opacification of the sphenoid sinus. The remainder the paranasal sinuses are clear. There are severe inflammatory changes in the mastoid air cells bilaterally. Middle ear cavities are grossly clear. The orbits and extracranial soft tissues are unremarkable. DIVISION OF RADIOLOGY Provider, [facility] - 02/20/2025 * * *Final Report* * * DATE OF EXAM: Feb 20 2025 4:23PM [facility] 0294 - MRI BRAIN WO IVCON / PROCEDURE REASON: multiple diagnoses * * * * Physician Interpretation * * * * EXAMINATION: MRI BRAIN WO IVCON CLINICAL HISTORY: Traumatic brain injury. Generalized anxiety disorder. TECHNIQUE: Routine noncontrast MRI protocol including diffusion images. MQ: MRBWO_2 COMPARISON: CT brain from May 05, 2024. RESULT: Acute Change: There is no evidence of restricted diffusion to suggest an acute infarct. Hemorrhage: No evidence of prior parenchymal hemorrhage on the susceptibility weighted images. Mass Lesion/ Mass Effect: No evidence of an intracranial mass or extra-axial fluid collection. No significant mass effect. Chronic Change: The white matter is within normal limits of signal intensity for age. Parenchyma: No significant volume loss for age. The brain parenchyma is otherwise within normal limits of signal intensity and morphology. Ventricles: Normal caliber and morphology. Skull Base: Hypothalamic and pituitary region are grossly normal. Craniocervical junction is normal. No significant marrow replacement process. Vasculature: Major intracranial arterial structures, and dural venous sinuses show typical flow void, suggesting patency by spin echo criteria. Other: There is subtotal opacification of the sphenoid sinus. The remainder the paranasal sinuses are clear. There are severe inflammatory changes in the mastoid air cells bilaterally. Middle ear cavities are grossly clear. The orbits and extracranial soft tissues are unremarkable. IMPRESSION IMPRESSION: Normal MRI brain for age. No abnormal susceptibility artifact in the brain parenchyma. No evidence of an extra-axial fluid collection. Severe inflammatory changes in the sphenoid sinus and mastoid air cells bilaterally. Welder Gun: PSCB Transcribe Date/Time: Feb 20 2025 7:22P Dictated by : MYRNA MOTLEY MD This examination was interpreted and the report reviewed and electronically signed by: MYRNA MOTLEY MD on Feb 20 2025 7:24PM EST [facility] Radiology Study observation (narrative) [facility] MR Brain WO contrastOrdered By: [facility] Provider on 02-20-2025 [facility] MRI BRAIN WO IVCONon 025 MRI BRAIN WO IVCON * * *Final Report* * * DATE OF EXAM: Feb 20 2025 4:23PM [facility] 0294 - MRI BRAIN WO IVCON / PROCEDURE REASON: multiple diagnoses * * * * Physician Interpretation * * * * EXAMINATION: MRI BRAIN WO IVCON CLINICAL HISTORY: Traumatic brain injury. Generalized anxiety disorder. TECHNIQUE: Routine noncontrast MRI protocol including diffusion images. MQ: MRBWO_2 COMPARISON: CT brain from May 05, 2024. RESULT: Acute Change: There is no evidence of restricted diffusion to suggest an acute infarct. Hemorrhage: No evidence of prior parenchymal hemorrhage on the susceptibility weighted images. Mass Lesion/ Mass Effect: No evidence of an intracranial mass or extra-axial fluid collection. No significant mass effect. Chronic Change: The white matter is within normal limits of signal intensity for age. Parenchyma: No significant volume loss for age. The brain parenchyma is otherwise within normal limits of signal intensity and morphology. Ventricles: Normal caliber and morphology. Skull Base: Hypothalamic and pituitary region are grossly normal. Craniocervical junction is normal. No significant marrow replacement process. Vasculature: Major intracranial arterial structures, and dural venous sinuses show typical flow void, suggesting patency by spin echo criteria. Other: There is subtotal opacification of the sphenoid sinus. The remainder the paranasal sinuses are clear. There are severe inflammatory changes in the mastoid air cells bilaterally. Middle ear cavities are grossly clear. The orbits and extracranial soft tissues are unremarkable. IMPRESSION: Normal MRI brain for age. No abnormal susceptibility artifact in the brain parenchyma. No evidence of an extra-axial fluid collection. Severe inflammatory changes in the sphenoid sinus and mastoid air cells bilaterally. [facility] Transcribe Date/Time: Feb 20 2025 7:22P Dictated by : MYRNA MOTLEY MD This examination was interpreted and the report reviewed and electronically signed by: MYRNA MOTLEY MD on Feb 20 2025 7:24PM EST [id number] Normal [facility] CNOVon 02-16-2025 CNOV Office Visit (GENSWS) BHUPENDRA HEBERT ([id number]) 1980 F Date Time Provider Department 02/16/25 3:45 PM PALOMO TORRES During your visit today, we recorded the following information about you: Pulse Respiration Blood pressure Weight 76/minute 20/minute 120/57 147.4 kg Maria Isabel Goodwin RN 02/18/2025 7:36 AM Signed REVIEW OF SYSTEMS: General: The patient denies [...] Neurologic: The patient denies a history of epilepsy/convulsions , denies headaches, notes head/spinal injuries, and denies [...] last Mammogram screening? 2023 Last Colonoscopy: N/A CHAIM Sánchez Richard T, MD 02/18/2025 7:36 AM Signed HISTORY AND PHYSICAL Bhupendra Hebert 1980 REFERRING PHYSICIAN: Akilah Wiggins APRN.* [...] HX INSERTION OF IUD 2023 Placed at [facility] CURRENT MEDICATIONS[2] ALLERGIES: Nystatin PERSONAL HISTORY: SOCIAL [...] panniculitis from the umbilicus down to her (more content not included)... Normal [facility] ADONISNon 02-16-2025 ADONISN Telephone (MEPRAD) ANUPBHUPENDRA Makayla ([id number]) 1980 F Date Time Provider Department 02/16/25 AUGUST FISHER During your visit today, we recorded the following information about you: Allergies As of Date: 02/16/2025 Noted Allergy Reaction NYSTATIN 01/24/2025 2 - Rash Date Reviewed: 02/09/2025 Reviewed by: Akilah Nagel, CHAIM - Fully Assessed Prescriptions as of 02/16/2025 - doxycycline hyclate (VIBRAMYCIN) 100 mg capsule Take 1 capsule by mouth two times a day for 7 days. - miconazole 2 % powder Apply 1 application to affected area two times a day for 14 days. - sulfamethoxazole-tri methoprim (BACTRIM DS) 800-160 mg per tablet Take 1 tablet by mouth two times a day for 7 days. - furosemide (LASIX) 20 mg tablet Take 1 tablet by mouth once daily. - potassium chloride (K-TAB) 10 mEq tablet Take 1 tablet by mouth once daily. - levoFLOXacin (LEVAQUIN) 500 mg tablet Take 1 tablet by mouth once daily for 7 days. - CAPLYTA 42 mg capsule Take 21 mg by mouth once daily. Pt. Taking 21 mg - buPROPion XL (WELLBUTRIN XL) 150 mg 24 hr tablet Take 1 tablet by mouth once daily. - traZODone (DESYREL) 50 mg tablet Take 1 tablet by mouth daily at bedtime. - albuterol HFA (PROVENTIL HFA, VENTOLIN HFA) 90 mcg/actuation inhaler Inhale 2 puffs as instructed every 4 hours as needed for wheezing/shortness of breath. - propranolol (INDERAL) 10 mg tablet Take 20 mg by mouth two times a day. Taking 20-40 TID - albuterol HFA (PROVENTIL HFA, VENTOLIN HFA) 90 mcg/actuation inhaler Albuterol Sulfate (Ventolin Hfa) 90 mcg/actuation HFA aerosol inhaler Active 2 NMA INHALATION EVERY 4 HOURS NEEDED as needed for Wheezing July 11, 2024 1:00am - celecoxib (CELEBREX) 100 mg capsule Take 100 mg by mouth once daily. - Cetirizine (ZYRTEC) 10 mg cap Take by mouth. - ADVAIR DISKUS 250-50 mcg/dose inhaler Inhale 1 Puff as instructed twice daily. - ipratropium-albutero l (DUONEB) 0.5 mg-3 mg(2.5 mg base)/3 mL nebu Use twice daily scheduled and every 6 hours as needed for Shortness of breath - omega-3 acid ethyl esters (LOVAZA) 1 gram capsule Take 1 g by mouth once daily. - pantoprazole DR (PROTONIX) 40 mg tablet Take 40 mg by mouth every morning. Problem List As Of Date 02/16/2025 Noted Resolved Acute appendicitis [K35.80] 12/26/2023 12/27/2023 [...] Atelectasis [J98.11] 12/27/2023 Acute appendicitis with generalized peritonitis*12/29/19 24 Lower abdominal pain [R10.30] 12/29/2023 Chronic left shoulder pain [M25.512, G89.29] 11/07/2024 PTSD (post-traumatic stress disorder) [F43.10] 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.18] ADHD (attention deficit hyperactivity disorder)* Elevated blood pressure reading without diagnos*02/07/2025 Wound infection [T14.8XXA, L08.9] 02/07/2025 Cellulitis of right lower extremity [L03.115] 02/07/2025 Leukocytosis [D72.829] 02/07/2025 02/09/2025 Chronic conjunctivitis of both eyes [H10.403] 02/07/2025 Encounter Status:Closed by AUGUST FISHER on 02/16/25 [facility] Telephone (BECKYRAD) BHUPENDRA HEBERT ([id number]) 1980 F Date Time Provider Department 02/16/25 AUGUST FISHER During your visit today, we recorded the following information about you: August Fisher MD 02/16/2025 9:49 AM Signed Left message with patient regarding changing antibiotics to Doxycycline for 7 days due to final culture results from legs Allergies As of Date: 02/16/2025 Noted Allergy Reaction NYSTATIN 01/24/2025 2 - Rash Date Reviewed: 02/09/2025 Reviewed by: Akilah Nagel RN - Fully Assessed Reason for Visit: Results [95] Order(s):doxycycline hyclate (VIBRAMYCIN) 100 mg capsuleTake 1 capsule by mouth two times a day for 7 days.Disp: 14 capsuleRfl: 0 Prescriptions as of 02/16/2025 - doxycycline hyclate (VIBRAMYCIN) 100 mg capsule Take 1 capsule by mouth two times a day for 7 days. - miconazole 2 % powder Apply 1 application to affected area two times a day for 14 days. - sulfamethoxazole-tri methoprim (BACTRIM DS) 800-160 mg per tablet Take 1 tablet by mouth two times a day for 7 days. - furosemide (LASIX) 20 mg tablet Take 1 tablet by mouth once daily. - potassium chloride (K-TAB) 10 mEq tablet Take 1 tablet by mouth once daily. - levoFLOXacin (LEVAQUIN) 500 mg tablet Take 1 tablet by mouth once daily for 7 days. - CAPLYTA 42 mg capsule Take 21 mg by mouth once daily. Pt. Taking 21 mg - buPROPion XL (WELLBUTRIN XL) 150 mg 24 hr tablet Take 1 tablet by mouth once daily. - traZODone (DESYREL) 50 mg tablet Take 1 tablet by mouth daily at bedtime. - albuterol HFA (PROVENTIL HFA, VENTOLIN HFA) 90 mcg/actuation inhaler Inhale 2 puffs as instructed every 4 hours as needed for wheezing/shortness of breath. - propranolol (INDERAL) 10 mg tablet Take 20 mg by mouth two times a day. Taking 20-40 TID - albuterol HFA (PROVENTIL HFA, VENTOLIN HFA) 90 mcg/actuation inhaler Albuterol Sulfate (Ventolin Hfa) 90 mcg/actuation HFA aerosol inhaler Active 2 NMA INHALATION EVERY 4 HOURS NEEDED as needed for Wheezing July 11, 2024 1:00am - celecoxib (CELEBREX) 100 mg capsule Take 100 mg by mouth once daily. - Cetirizine (ZYRTEC) 10 mg cap Take by mouth. - ADVAIR DISKUS 250-50 mcg/dose inhaler Inhale 1 Puff as instructed twice daily. - ipratropium-albutero l (DUONEB) 0.5 mg-3 mg(2.5 mg base)/3 mL nebu Use twice daily scheduled and every 6 hours as needed for Shortness of breath - omega-3 acid ethyl esters (LOVAZA) 1 gram capsule Take 1 g by mouth once daily. - pantoprazole DR (PROTONIX) 40 mg tablet Take 40 mg by mouth every morning. Problem List As Of Date 02/16/2025 Noted Resolved Acute appendicitis [K35.80] 12/26/2023 12/27/2023 [...] Atelectasis [J98.11] 12/27/2023 Acute appendicitis with generalized peritonitis*12/29/19 24 Lower abdominal pain [R10.30] 12/29/2023 Chronic left shoulder pain [M25.512, G89.29] 11/07/2024 PTSD (post-traumatic stress disorder) [F43.10] 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.18] ADHD (attention deficit hyperactivity disorder)* Elevated blood pressure reading without diagnos*02/07/2025 Wound infection [T14.8XXA, L08.9] 02/07/2025 Cellulitis of right lower extremity [L03.115] 02/07/2025 Leukocytosis [D72.829] 02/07/2025 02/09/2025 Chronic conjunctivitis of both eyes [H10.403] 02/07/2025 Prescriptions ordered this encounter Disp Refills Start End DOXYCYCLINE HYCLATE 100 MG CAPSULE 14 c* 0 02/16/2025 02/23/2025 Route: PO Sig: Take 1 capsule by mouth two times a day for 7 days. 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 No contraindications or sensitivities were noted. Meds taken: /hours before testing. 2 puffs Albuterol (180 mcg) delivered by MDI via holding chamber. HR pre = 76/min, HR post = 76/min. Current ATS/ERS acceptability and repeatability standards for spirometry met. Start of test and EOFE criteria met. Nitrogen washout performed for lung volume measurements. Current ATS/ERS acceptability and repeatability criteria for lung volumes met. IMPRESSION: Spirometry indicates no obstruction. The reduced FVC indicates restriction, which is confirmed by lung volumes. Negative bronchodilator response. Low or normal FRC, low ERV, and elevated RV/TLC is consistent with changes in lung volumes due to obesity. Clinical correlation recommended. Electronically Signed On 02-16-2025 15:18:58 EDT by Meme Motley MD ID: [id number] Name: BHUPENDRA HEBERT Race: White Ht: 62.40 in Wt: 328.00 lbs Age: 44 Gender: Female : 1980 Dx: Shortness of breath Smoking Hx: Non-smoker Doctor: AKILAH WIGGINS Test Date: 02/16/2025 Site: Tech: Sue Lewis PRE-BRONCH POST-BRONCH Nan LLN Pred ULN %Pred ZScore Nan %Pred %Chg ZScore SPIROMETRY FVC 2.02 2.41 3.17 3.96 63 -2.50 1.92 60 -3 -2.72 FEV1 1.57 1.99 2.64 3.26 59 -2.64 1.48 56 -3 -2.84 FEV1/FVC 0.78 0.72 0.83 0.92 93 -0.82 0.77 93 0 -0.89 FEFMax 3.56 5.06 6.68 8.31 53 -3.16 3.55 53 0 -3.17 FEF50 1.56 2.02 3.63 5.23 43 -2.11 1.60 44 2 -2.07 FIF50 1.45 2.02 39 FEF50/FIF50 1.07 90-100 0.79 -26 FIVC 1.94 1.90 -2 FOO30-92 1.42 1.76 2.96 4.42 48 -2.20 1.05 35 -26 -2.89 ExpiredTime 4.15 6.34 52 TimeToFEFMax 0.14 0.13 -4 CRISTOFER 0.04 0.08 75 VolExtrap% 2 4 84 LUNG VOLUMES FRC(N2) 1.01 1.75 2.47 3.38 40 -3.94 ERV 0.08 1.06 8 RV(N2) 0.91 0.72 1.27 2.00 71 -1.02 SVC 2.14 2.41 3.17 3.96 67 -2.22 IC 2.06 2.11 97 TLC(N2) 2.98 4.05 4.94 5.93 60 -3.90 RV/TLC(N2) 31 16 26 36 119 0.80 Comments: Medications and Allergies were reviewed for possible drug interactions per policy. No contraindications or sensitivities were noted. Meds taken: /hours before testing. 2 puffs Albuterol (180 mcg) delivered by MDI via holding chamber. HR pre = 76/min, HR post = 76/min. Current ATS/ERS acceptability and repeatability standards for spirometry met. Start of test and EOFE criteria met. Nitrogen washout performed for lung volume measurements. Current ATS/ERS acceptability and repeatability criteria for lung volumes met. 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 No contraindications or sensitivities were noted. Meds taken: /hours before testing. 2 puffs Albuterol (180 mcg) delivered by MDI via holding chamber. HR pre = 76/min, HR post = 76/min. Current ATS/ERS acceptability and repeatability standards for spirometry met. Start of test and EOFE criteria met. Nitrogen washout performed for lung volume measurements. Current ATS/ERS acceptability and repeatability criteria for lung volumes met. IMPRESSION: Spirometry indicates no obstruction. The reduced FVC indicates restriction, which is confirmed by lung volumes. Negative bronchodilator response. Low or normal FRC, low ERV, and elevated RV/TLC is consistent with changes in lung volumes due to obesity. Clinical correlation recommended. Electronically Signed On 02-16-2025 15:18:58 EDT by Meme Motley MD ID: [id number] Name: BHUPENDRA HEBERT Race: White Ht: 62.40 in Wt: 328.00 lbs Age: 44 Gender: Female : 1980 Dx: Shortness of breath Smoking Hx: Non-smoker Doctor: AKILAH WIGGINS Test Date: 02/16/2025 Site: [facility] Roberson: Sue Lewis PRE-BRONCH POST-BRONCH Nan LLN Pred ULN %Pred ZScore Nan %Pred %Chg ZScore SPIROMETRY FVC 2.02 2.41 3.17 3.96 63 -2.50 1.92 60 -3 -2.72 FEV1 1.57 1.99 2.64 3.26 59 -2.64 1.48 56 -3 -2.84 FEV1/FVC 0.78 0.72 0.83 0.92 93 -0.82 0.77 93 0 -0.89 FEFMax 3.56 5.06 6.68 8.31 53 -3.16 3.55 53 0 -3.17 FEF50 1.56 2.02 3.63 5.23 43 -2.11 1.60 44 2 -2.07 FIF50 1.45 2.02 39 FEF50/FIF50 1.07 90-100 0.79 -26 FIVC 1.94 1.90 -2 AWB11-37 1.42 1.76 2.96 4.42 48 -2.20 1.05 35 -26 -2.89 ExpiredTime 4.15 6.34 52 TimeToFEFMax 0.14 0.13 -4 CRISTOFER 0.04 0.08 75 VolExtrap% 2 4 84 LUNG VOLUMES FRC(N2) 1.01 1.75 2.47 3.38 40 -3.94 ERV 0.08 1.06 8 RV(N2) 0.91 0.72 1.27 2.00 71 -1.02 SVC 2.14 2.41 3.17 3.96 67 -2.22 IC 2.06 2.11 97 TLC(N2) 2.98 4.05 4.94 5.93 60 -3.90 RV/TLC(N2) 31 16 26 36 119 0.80 Comments: Medications and Allergies were reviewed for possible drug interactions per policy. No contraindications or sensitivities were noted. Meds taken: /hours before testing. 2 puffs Albuterol (180 mcg) delivered by MDI via holding chamber. HR pre = 76/min, HR post = 76/min. Current ATS/ERS acceptability and repeatability standards for spirometry met. Start of test and EOFE criteria met. Nitrogen washout performed for lung volume measurements. Current ATS/ERS acceptability and repeatability criteria for lung volumes met. FVC_PRE (L) : 2.02 L FVC_POST (L) : 1.92 L FVC_PRED (L) : 3.17 L FVC_LLN (L) : 2.41 L FVC_ULN (L) : 3.96 L FEV1_PRE (L) : 1.57 L FEV1_POST (L) : 1.48 L FEV1_PRED (L) : 2.64 L FEV1_LLN (L) : 1.99 L FEV1_ULN (L) : 3.26 L FEV1/FVC_PRE (%) : 78 % FEV1/FVC_POST (%) : 77 % FEV1/FVC_PRED (%) : 83 % FEV1/FVC_LLN (%) : 72 % LMY71_WTQ (L/S) : 2.42 L/S PFP20_NQKD (L/S) : 3.52 L/S BIP16_RJZ (L/S) : 0.65 L/S ZQK68_TJXB (L/S) : 0.35 L/S IUQ73_IMES (L/S) : 1.08 L/S NBZ15_GLF (L/S) : 0.50 L/S ZYR70_YZG (L/S) : 2.09 L/S MGI53-51%_PRE (L/S) : 1.42 L/S PLJ81-25%_POST (L/S) : 1.05 L/S NAJ51-74%_PRED (L/S) : 2.96 L/S STU49-06%_LLN (L/S) : 1.76 L/S PEF_PRE (L/S) : 3.56 L/S PEF_POST (L/S) : 3.55 L/S PEFMAX_LLN (L/S) : 5.06 L/S PEFMAX_ULN (L/S) : 8.31 L/S VC BOX (L) : 2.14 L SVC_PRED (L) : 3.17 L/S SVC_LLN (L) : 2.41 L/S SVC_ULN (L/S) : 3.96 L/S IC BOX (L) : 2.06 L IC_PRED (L) : 2.11 L/S ERV BOX (L) : 0.08 L ERV_PREDICTED (L) : 1.06 L/S FET_PRE (S) : 4.15 S FET_POST (S) : 6.34 S FRC GAS (L) : 1.01 L RV GAS (L) : 0.91 L RV_N2_PRED (L) : 1.27 L TLC GAS (L) : 2.98 L TLC_N2_PRED (L) : 4.94 L RV/TLC GAS (%) : 31 % RV_TLC_N2_PRED (%) : 26 L Normal [facility] Wound Ctr History AND Physic kerwin 02-15-2025 Wound Ctr History & Physical [facility] [address] [place] [address] H P Exam - Wound Care 02/15/25 1231 MR#: [id number] Acct: [id number] Name: BHUPENDRA HEBERT Rep #: [id number] : 1980 44 From: Russ Mancuso MD PCP: Akilah Wiggins 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 She was seen at the [facility] ER on January 02, 2025, at which time she was treated with a prescription for cephalexin 500 mg p.o. every 6 hours for 10 days. More recently, the patient was evaluated in the Emergency Department at the [facility] on February 07, at which time [...] morbidly obese, with a BMI of 62.5. The patient admits to sleeping in a recliner. She is not active, and sits in idle fashion throughout most of each day. She denies a history of lower extremity thrombophlebitis. [facility] Medical History (Updated 02/15/25 @ 13:01 [...] (chronic obstructive pulmonary disease) Asthma Home Medications ???Medication ???Instructions ???Recorded ???Last Taken ???Type albuterol sulfate 90 mcg/actuation 2 puff inhalation Q4H PRN PRN Unknown Rx aerosol inhaler (Ventolin HFA) Wheezing ##1 celecoxib 100 mg capsule 100 mg PO DAILY 01/02/25 Unknown H istory cetirizine 10 mg tablet 10 mg PO DAILY 01/02/25 Unknown Hi story pantoprazole 40 mg tablet,delayed 40 mg PO DAILY 01/02/25 Unknown H istory release risperidone 0.5 mg tablet 0.5 mg PO QHS 01/02/25 Unknown His tory trazodone 50 mg tablet 100 mg PO QHS 01/02/25 Unknown His tory atorvastatin 10 mg tablet (Lipitor) 10 mg PO DAILY 02/14/25 Unknown History bupropion HCl 150 mg 24 hr tablet, 150 mg PO DAILY 02/14/25 Unknown History extended release (Wellbutrin XL) fluconazole 150 mg tablet 150 mg PO QWEEK 02/14/25 Unknown H istory fluticasone 250 mcg-salmeterol 50 1 inh inhalation BID 02/14/25 Unk nown History mcg/dose blistr powdr for inhalation (Advair Diskus) ipratropium 0.5 mg-albuterol 3 mg ml 02/14/25 Unknown History (2.5 mg base)/3 mL nebulization soln lumateperone 21 mg capsule 21 mg PO DAILY 02/14/25 Unknown Hi story (Caplyta) omega-3 acid ethyl esters 1 gram cap PO 02/14/25 Unknown History capsule propranolol 20 mg tablet 20 mg PO BID 02/14/25 Unknown Hist ory Allergy/AdvReac Type Severity Reaction Status Date / [...] is morbidly obese. Her BMI is 62.5. G (more content not included)... Normal [facility] Basic metabolic 2000 panelon 02-09-2025 Anion gap [Moles/Vol] 11 mmol/L Normal 8-15 [facility] Comment on above: Order Comment: Speci men Type: BLOOD SPECIMEN Ordering Facility: [facility] Address: [address] [place] [address] Performed By: #### S LACTR #### [facility] CLIA [id number] [address] [place] [address] [place] Calcium [Mass/Vol] 9.2 mg/dL Normal 8.5-10.2 [facility] Comment on above: Order Comment: Speci men Type: BLOOD SPECIMEN Ordering Facility: [facility] Address: [address] [place] [address] Performed By: #### S LACTR #### [facility] CLIA [id number] [address] [place] [address] [place] Chloride [Moles/Vol] 100 mmol/L Normal 98-107 [facility] Comment on above: Order Comment: Speci men Type: BLOOD SPECIMEN Ordering Facility: [facility] Address: [address] [place] [address] Performed By: #### S LACTR #### [facility] CLIA [id number] [address] [place] [address] [place] CO2 [Moles/Vol] 27 mmol/L Normal 22-30 [facility] Comment on above: Order Comment: Speci men Type: BLOOD SPECIMEN Ordering Facility: [facility] Address: [address] [place] [address] Performed By: #### S LACTR #### [facility] CLIA [id number] [address] [place] [address] [place] Creatinine [Mass/Vol] 0.78 mg/dL Normal 0.58-0.96 [facility] Comment on above: Order Comment: Speci men Type: BLOOD SPECIMEN Ordering Facility: [facility] Address: [address] [place] [address] Performed By: #### S LACTR #### [facility] CLIA [id number] [address] [place] eGFRcr SerPlBld CKD-EPI 2020 97 mL/min/1.73m??? Normal >=60 [facility] Comment on above: Order Comment: Speci men Type: BLOOD SPECIMEN Ordering Facility: [facility] Address: [address] [place] [address] Result Comment: Reyna mated Glomerular Filtration Rate (eGFR) is calculated using the 2020 CKD-EPI creatinine equation. This equation utilizes serum creatinine, sex, and age as parameters. The creatinine assay has traceable calibration to isotope dilution-mass spectrometry. Refer to KDIGO guidelines for clinical interpretation. In patients with unstable renal function, e.g. those with acute kidney injury, the eGFR may not accurately reflect actual GFR. Performed By: #### S LACTR #### [facility] CLIA [id number] [address] [place] [address] [place] Glucose [Mass/Vol] 94 mg/dL Normal 74-99 [facility] Comment on above: Order Comment: Speci men Type: BLOOD SPECIMEN Ordering Facility: [facility] Address: [address] [place] [address] Result Comment: The [place] Diabetes Association (ADA) provides guidance for cutoff values for fasting glucose and random glucose. The ADA defines fasting as no caloric intake for at least 8 hours. Fasting plasma glucose results between 100 to 125 mg/dL indicate increased risk for diabetes (prediabetes). Fasting plasma glucose results greater than or equal to 126 mg/dL meet the criteria for diagnosis of diabetes. In the absence of unequivocal hyperglycemia, results should be confirmed by repeat testing. In a patient with classic symptoms of hyperglycemia or hyperglycemic crisis, random plasma glucose results greater than or equal to 200 mg/dL meet the criteria for diagnosis of diabetes. Reference: Standards of Medical Care in Diabetes 2016, [place] [employer]. Diabetes Care. 2016.39(Suppl 1). Performed By: #### S LACTR #### [facility] CLIA [id number] [address] [place] [address] [place] Potassium [Moles/Vol] 4.4 mmol/L Normal 3.7-5.1 [facility] Comment on above: Order Comment: Narinder steven Type: BLOOD SPECIMEN Ordering Facility: [facility] Address: [address] [place] [address] Performed By: #### S LACTR #### [facility] CLIA [id number] [address] [place] [address] [place] Sodium [Moles/Vol] 138 mmol/L Normal 136-144 [facility] Comment on above: Order Comment: Narinder steven Type: BLOOD SPECIMEN Ordering Facility: [facility] Address: [address] [place] [address] Performed By: #### S LACTR #### [facility] CLIA [id number] [address] [place] [address] [place] Urea nitrogen [Mass/Vol] 10 mg/dL Normal 7-21 [facility] Comment on above: Order Comment: Narinder steven Type: BLOOD SPECIMEN Ordering Facility: [facility] Address: [address] [place] [address] Performed By: #### S LACTR #### [facility] CLIA [id number] [address] [place] [address] [place] CBC panel Auto (Bld)on 02-09 Erythrocyte distribution width (RBC) [Ratio] 16.6 % High 11.5-15.0 [facility] Comment on above: Order Comment: Narinder steven Type: BLOOD SPECIMEN Ordering Facility: [facility] Address: [address] [place] [address] Performed By: #### 5 8410-2 #### [facility] CLIA [id number] [address] Hematocrit (Bld) [Volume fraction] 41.0 % Normal 36.0-46.0 [facility] Comment on above: Order Comment: Speci men Type: BLOOD SPECIMEN Ordering Facility: [facility] Address: [address] [place] [address] Performed By: #### 5 8410-2 #### [facility] CLIA [id number] [address] OF [facility] Hemoglobin (Bld) [Mass/Vol] 12.5 g/dL Normal 11.5-15.5 [facility] Comment on above: Order Comment: Speci men Type: BLOOD SPECIMEN Ordering Facility: [facility] Address: [address] [place] [address] Performed By: #### 5 8410-2 #### [facility] CLIA [id number] [address] MCH (RBC) [Entitic mass] 24.7 pg Low 26.0-34.0 [facility] Comment on above: Order Comment: Speci men Type: BLOOD SPECIMEN Ordering Facility: [facility] Address: [address] [place] [address] Performed By: #### 5 8410-2 #### [facility] CLIA [id number] [address] [place] MCHC (RBC) [Mass/Vol] 30.5 g/dL Normal 30.5-36.0 [facility] Comment on above: Order Comment: Speci men Type: BLOOD SPECIMEN Ordering Facility: [facility] Address: [address] [place] [address] Performed By: #### 5 8410-2 #### [facility] CLIA [id number] [address] MCV (RBC) [Entitic vol] 80.9 fL Normal 80.0-100.0 [facility] Comment on above: Order Comment: Speci men Type: BLOOD SPECIMEN Ordering Facility: [facility] Address: [address] [place] [address] Performed By: #### 5 8410-2 #### [facility] CLIA [id number] [address] [place] Nucleated RBC (Bld) [#/Vol] 10*3/uL Normal <0.01 [facility] Comment on above: Order Comment: Speci men Type: BLOOD SPECIMEN Ordering Facility: [facility] Address: [address] [place] [address] Performed By: #### 5 8410-2 #### [facility] CLIA [id number] [address] [place] Platelet mean volume (Bld) [Entitic vol] 10.1 fL Normal 9.0-12.7 [facility] Comment on above: Order Comment: Speci men Type: BLOOD SPECIMEN Ordering Facility: [facility] Address: [address] [place] [address] Performed By: #### 5 8410-2 #### [facility] CLIA [id number] [address] [place] [address] [place] Platelets (Bld) [#/Vol] 333 10*3/uL Normal 150-400 [facility] Comment on above: Order Comment: Speci men Type: BLOOD SPECIMEN Ordering Facility: [facility] Address: [address] [place] [address] Performed By: #### 5 8410-2 #### [facility] CLIA [id number] [address] [place] [address] [place] RBC (Bld) [#/Vol] 5.07 10*6/uL Normal 3.90-5.20 [facility] Comment on above: Order Comment: Speci men Type: BLOOD SPECIMEN [facility]ing Facility[facility] Address: [address] [place] [address] Performed By: #### 5 8410-2 #### [facility] CLIA [id number] [address] [place] [address] [place] WBC (Bld) [#/Vol] 9.14 10*3/uL Normal 3.70-11.00 [facility] Comment on above: Order Comment: Speci men Type: BLOOD SPECIMEN Ordering Facility: [facility] Address: [address] [place] [address] Performed By: #### 5 8410-2 #### [facility] CLIA [id number] [address] [place] [address] [facility] [place] CNDSon 02-09-2025 CNDS HNO ID: [id number] Author: AUGUST FISHER MD Service: Hospital Medicine Author Type: Physician Type: Discharge Summary Filed: 02/09/2025 22:30 Note Text: DISCHARGE SUMMARY PATIENT NAME: Bhupendra Hebert ADMISSION DATE: 02/07/2025 DISCHARGE DATE: 02/09/2025 ATTENDING PHYSICIAN: August Fisher MD Code Status: Not on file PCP: Akilah Wiggins APRN.ADONIS Highest Readmission Risk Score: 20 The 30 day readmissions risk score is derived from an internally validated risk model which evaluates patient level characteristics, utilization history, medication orders and lab results up until the day of discharge. Patients with a score of 39 or above are considered highest risk for readmission. Specific patient level drivers will be listed at the bottom of the summary. TRANSITIONS OF CARE CRITICAL ISSUES: KARIMI MEDICATION CHANGES: Bactrim and Levaquin for 7 days Lasix and potassium supplementation FOLLOW UP APPOINTMENTS: PCP and wound care clinic LABS AND PROCEDURES PENDING AT DISCHARGE: Test Results Not Yet Available from This Hospitalization: Please Review at Your Follow Up Appointment Order Current Status BACTERIAL CULTURE AND GRAM STAIN, ABSCESS AND WOUND (AEROBIC CULTURE) Preliminary result BACTERIAL CULTURE AND GRAM STAIN, ABSCESS AND WOUND (AEROBIC CULTURE) Preliminary result BACTERIAL CULTURE, BLOOD Preliminary result BACTERIAL CULTURE, BLOOD Preliminary result REASON FOR HOSPITALIZATION/NADIYA L DIAGNOSIS: Bilateral lower extremity wound with cellulitis Diastolic dysfunction of the heart with acute on chronic diastolic heart failure Lymphedema of the abdominal wall and possibly lower extremities Right ventricular dilatation likely from sleep apnea HOSPITAL PROBLEMS: Active Hospital Problems Diagnosis POA Cellulitis of right lower extremity Yes Elevated blood pressure reading without diagnosis of hypertension Yes Wound infection Yes Chronic conjunctivitis of both eyes Yes MPD syndrome Yes Lower abdominal pain Yes Nicotine use disorder, F17.2 Yes BMI 60.0-69.9, adult (HCC) Yes Asthma with chronic obstructive pulmonary disease (COPD) ([facility]) Yes Gastroesophageal reflux disease Yes Generalized anxiety disorder Yes BRITTANY (obstructive sleep apnea) Yes Resolved Hospital Problems Diagnosis POA Leukocytosis Yes HOSPITAL COURSE: 44-year-old female admitted to the [...] plan for discharge home with outpatient follow-up. OPERATIONS/PROCEDURE DURING THIS HOSPITALIZATION: * No surgery found * CONSULTS DURING HOSPITALIZATION: Treatment Team: Attending Provider: August Fisher MD Consulting: Jose Armando Rodas MD Consulting: Palomo Em DPM Primary Service: , [facility] PATIENT CONDITION AT DISCHARGE: Fair DISCHARGE DISPOSITION: Home with Self Care Alert awake oriented x 3, average built and super morbidly obese Cardiac: S1-S2 is heard regular in rhythm Respiratory system: Clear to auscultation bilaterally abdomen: Lower abdominal lymphedema with no evidence of clinical cellulitis Lower extremity: Dressed not opened with some edema seen DIET: Resume your pre-hospital diet ACTIVITY AND EXERCISE: Resume pre-hospital activity FOLLOW UP APPOINTMENTS: Future Appointments Date Time Provider Department Center 02/16/2025 2:30 PM Wstr[facility] [place] 02/16/2025 2:45 PM Wstr, Pulm Lab [facility] [place] 02/16/2025 3:45 PM Palomo Torres MD GENSWS [place] 02/20/2025 2:50 PM SCREEN MAMMO [facility] WSTR RDXWS [place] 02/20/2025 4:30 PM MRI RADIO [facility] WSTR (I-STAT/1.5T) RMRIWS [place] 11/30/2025 2:15 PM Rafa Parks, OD OPHWOO [place] ALLERGIES Allergen Reactions Nystatin Rash DISCHARGE MEDICATION: Medication List START taking these medications furosemide 20 mg tablet Commonly known as: LASIX Take 1 tablet by mouth once daily. levoFLOXacin 500 mg tablet Commonly known as: LEVAQUIN Take 1 tablet by mouth once daily for 7 days. miconazole 2 % powder Apply 1 application to affected area (more content not included)... [facility] CONSULT PROGon 02-09-2025 CONSULT PROG HNO ID: [id number] Author: JOSE ARMANDO RODAS MD Service: Infectious Disease Author Type: Physician Type: Consult Progress Note Filed: 02/09/2025 22:34 Note Text: INFECTIOUS DISEASE PROGRESS NOTE Patient Name: Bhupendra Hebert INTERVAL HISTORY: Up in chair. Feels better. No fevers. Pain is controlled. Good PO intake Patient Active Hospital Problem List: Cellulitis of right lower extremity Date Noted: 02/07/2025 Asthma with chronic obstructive pulmonary disease (COPD) (HCC) Date Noted: 10/18/2021 Gastroesophageal reflux disease Date Noted: 10/18/2021 Generalized anxiety disorder Date Noted: 10/18/2021 BRITTANY (obstructive sleep apnea) Date Noted: 10/18/2021 Nicotine use disorder, F17.2 Date Noted: 12/27/2023 BMI 60.0-69.9, adult (HCC) Date Noted: 12/27/2023 Lower abdominal pain Date Noted: 12/29/2023 MPD syndrome Date Noted: Elevated blood pressure reading without diagnosis of hypertension Date Noted: 02/07/2025 Wound infection Date Noted: 02/07/2025 Chronic conjunctivitis of both eyes Date Noted: 02/07/2025 ASSESSMENT: Cellulitis of right lower extremity (POA: Yes) Asthma with chronic obstructive pulmonary disease (COPD) (HCC) (POA: Yes) Gastroesophageal reflux disease (POA: Yes) Generalized anxiety disorder (POA: Yes) BRITTANY (obstructive sleep apnea) (POA: Yes) Nicotine use disorder, F17.2 (POA: Yes) BMI 60.0-69.9, adult (HCC) (POA: Yes) Lower abdominal pain (POA: Yes) MPD syndrome (POA: Yes) Elevated blood pressure reading without diagnosis of hypertension (POA: Yes) Wound infection (POA: Yes) Leukocytosis (POA: Yes) Chronic conjunctivitis of both eyes (POA: Yes) PLAN: Stop Zosyn Start Ancef Continue Vancomycin Obtain wound cultures Follow-up blood culture results Billy wraps Diuresis per primary team Wound care consult Discharge planning on PO Keflex while continuing compression and edema management I have reviewed and interpreted all lab test imaging studies and documentations from other healthcare providers I am monitoring antibiotics for side effects and toxicity MEDICATIONS: reviewed. PHYSICAL EXAM: Vital signs: BP 132/67 Pulse 70 Temp 37 ?C (98.6 ?F) (Oral) Resp 20 Ht 152.4 cm (5') Wt (!) 149 kg (328 lb 7.8 oz) LMP (Approximate) SpO2 92% BMI 64.15 kg/m? Temp (24hrs), Av ?C (98.6 ?F), Min:36.9 ?C (98.5 ?F), Max:37 ?C (98.6 ?F) General: alert, oriented, NAD Lungs: bilaterally clear to auscultation Heart: regular rate and rhythm Abdomen: soft, non tender, non distended, BS+ Extremities: no edema No rashes No joint inflammation Neck supple Lines ok No CVAT Labs: Recent Labs 02/09/25 0508 02/08/25 0516 02/07/25 2044 02/07/25 1734 WBC 9.14 9.64 -- 11.31* HB 12.5 12.6 -- 12.9 PLT 333 308 -- 340 NA 138 137 -- 137 K 4.4 4.2 -- 4.3 CO2 27 26 -- 26 BUN 10 9 -- 7 CREAT 0.78 0.69 -- 0.56* AST -- -- -- 27 ALT -- -- -- 25 TBILI -- -- -- 0.3 ALKPHOS -- -- -- 118 WSR -- -- 27* -- CRP -- -- 3.4* -- LACT -- -- -- 1.2 Microbiology data: reviewed Imaging data: reviewed Jose Armando Rodas MD Pager: Date of service: 02/09/2025 Time of service: 10:32 AM This note is not final until Authenticated by responsible provider. [facility] CONSULT PROG HNO ID: [id number] Author: DARIA MASSEY DPM Service: Podiatry Author Type: Physician Type: Consult Progress Note Filed: 02/09/2025 08:50 Note Text: PODIATRY PROGRESS NOTE Service Date: 02/09/2025 Admit Date: 02/07/2025 Service Time: 8:46 AM Hospital Day: 0 day(s) Interval History: No acute events overnight. No new pedal complaints. Wounds on BLE examined today and found stable Awaiting culture results. Continues on antibiotic therapy per ID recs. Endorses some pain and discomfort to BLE wounds. Dressing change performed today. No other questions or concerns. Objective OBJECTIVE: BP 118/63 Pulse 66 Temp 37 ?C (98.6 ?F) (Oral) Resp 20 Ht 152.4 cm (5') Wt (!) 149 kg (328 lb 7.8 oz) LMP (Approximate) SpO2 92% BMI 64.15 kg/m? Vascular: palpable Dorsalis Pedis and Posterior Tibial Pulses BILATERAL Capillary Fill time < 3 seconds to B/L digits Skin temperature warm to normal tibial tuberosity to the digits B/L YES edema NO varicosities Neurological: Epicritic sensation present B/L Musculoskeletal/Orth opaedic: Structural Deformities/amputati ons: None noted. 5/5 muscle strength Dorsiflexion, Plantarflexion, Inversion, Eversion B/L Dermatological: RIGHT anterior lower leg wound measures 3.8 x 4.0 x 0.3 cm with 30: 70 granular fibrotic base, YES surrounding erythema, NO, NO probe to bone, NO malodor, moderate drainage. Into level of SUBCUTANEOUS TISSUE, full thickness LEFT medial lower leg wound measures 7.1 x 3.1 x 0.2cm with scab base, YES surrounding erythema, NO purulence, NO probe to bone, NO malodor, moderate drainage. Into level of SUBCUTANEOUS TISSUE , full thickness Imaging available at get images. Verbal consent obtained prior to obtaining photo. All efforts were made to exclude PHI. LABS: Recent Labs 02/09/25 0508 02/08/25 0516 02/07/25 1734 WBC 9.14 9.64 11.31* HB 12.5 12.6 12.9 HCT 41.0 40.7 40.6 PLT 333 308 340 NA 138 137 137 K 4.4 4.2 4.3 CHLOR 100 101 100 CO2 27 26 26 CREAT 0.78 0.69 0.56* BUN 10 9 7 GLUC 94 99 103* TPROT -- -- 7.6 ALB -- -- 4.0 MG 2.0 1.9 -- CA 9.2 9.3 9.6 ALKPHOS -- -- 118 TBILI -- -- 0.3 AST -- -- 27 ALT -- -- 25 Current Facility-Administere d Medications Medication Dose Route Frequency vancomycin dosing and monitoring per pharmacy OTHER As Directed NaCl 0.9% iv flush bag 20 mL INTRAVENOUS PRN vancomycin iv piggyback 1.5 g in D5W 300 mL (VANCOCIN) 1.5 g INTRAVENOUS q 12 HR lumateperone cap 21 mg (CAPLYTA) 21 mg ORAL DAILY buPROPion XL 150 mg tab(s) (WELLBUTRIN XL) 150 mg ORAL DAILY pantoprazole DR 40 mg tab(s) (PROTONIX) 40 mg ORAL DAILY (6 AM) acetaminophen 650 mg tab(s) (TYLENOL) 650 mg ORAL q 6 H PRN mometasone-formotero l 100-5 mcg/actuation 2 puff inhaler (DULERA) 2 puff INHALATION BID ciprofloxacin HCl 0.3 % 2 drop (CILOXAN) 2 drop BOTH EYES q 4 H while awake ipratropium-albutero l 3 mL nebulizer solution (DUONEB) 3 mL INHALATION q 4 H PRN propranolol 40 mg tab(s) (INDERAL) 40 mg ORAL TID traZODone 100 mg tab(s) (DESYREL) 100 mg ORAL AT BEDTIME nicotine 21 mg/24 hr 1 patch (NICODERM) 1 patch TRANSDERMAL DAILY And nicotine -- REMOVE patch OTHER DAILY And nicotine - verify patch OTHER q 8 H miconazole 2 % 1 application topical powder 1 application TOPICAL BID ondansetron (PF) 4 mg injection (ZOFRAN) 4 mg INTRAVENOUS q 6 H PRN ceFAZolin iv piggyback 2 g in D5W (iso-osmotic) 100 mL (ANCEF) 2 g INTRAVENOUS q 8 HR sodium chloride 0.9 % (flush) 2-10 mL (BD POSIFLUSH) 2-10 mL INTRAVENOUS DIRECTED PRN MICROBIOLOGY: No results found for the last 90 days. Awaiting culture results. ASSESSMENT/PLAN: - Cellulitis right lower leg - Cellulitis left lower leg - traumatic Ulceration anterior right lower leg, into level of subcutaneous tissue - traumatic Ulceration medial left lower leg, into level of subcutaneous tissue - Obesity Associated Management: -Vascular studies N/A - Cultures: Blood - negative 02/08/25 LEFT lower leg wound culture: pending - Imaging: No radiographic evidence of osteomyelitis. US DVT negative - Weight bearing status/ADL/Precautio ns: Weight Bearing As Tolerated on the LEFT foot and Weight Bearing As Tolerated on the RIGHT foot - Wound Care: Wash the wound with vashe soaked gauze for 3-5 minutes. Then apply dressing consisting of betadine, adaptic, 4x4s, ABDs, kerlix, and billy wrap. Do this daily. Nursing dressing orders in. Podiatry did dressing change today - Active Antimicrobials (From admission, onward) Start Stop 02/07/25 2230 ciprofloxacin HCl 0.3 % 2 drop (CILOXAN) 2 drop, BOTH EYES, EVERY 4 HOURS WHILE AWAKE -- 02/07/25 1800 vancomycin iv piggyback 1.5 g in D5W 300 mL (VANCOCIN) 1.5 g, INTRAVENOUS, EVERY 12 HOURS -- 02/07/25 1730 piperacillin-tazobac santos iv piggyback 3.375 g in dextrose (iso-osmotic) 50 mL (ZOSYN) 3.375 g, INTRAVENOUS, EVERY 6 HOURS -- 02/07/25 1730 vancomycin dosi (more content not included)... Normal [facility] Magnesium SerPl-ncon 02-09 Magnesium [Mass/Vol] 2.0 mg/dL Normal 1.7-2.3 [facility] Comment on above: Order Comment: Speci men Type: BLOOD SPECIMEN Ordering Facility[facility] Address: [address] [place] [address] Performed By: #### S LACTR #### [facility] CLIA [id number] [address] [place] [address] [place] ALLIED HEALTHon 02-08-2025 ALLIED HEALTH HNO ID: [id number] Author: LEONIE TATUM RT(R) Service: Radiology Author Type: Career Development Associate Type: Allied Health Filed: 02/08/2025 06:08 Note Text: Radiology Service Progress Note PATIENT NAME: Bhupendra Hebert DATE OF SERVICE: February 08, 2025 TIME: 6:08 AM PATIENT IDENTITY VERIFICATION COMPLETED USING TWO (2) IDENTIFIERS: Name and Date of confirmed by patient verbally and Name and Date of confirmed by identification band. FALL SCREENING: Has the patient had 2 falls in the last year or 1 fall with injury or currently using an Ambulatory Assistive Device (Walker, Cane, Wheelchair, Crutches, etc.)? Inpatient: Screened on floor PATIENT GENDER DATA: Assigned female at . status: : No status: NO. PATIENT RELEVANT IMPLANT DATA REVIEWED: Not Applicable PATIENT PRESENTS WITH AN IMPLANTABLE OR ATTACHED HUSKER OPERATOR: No RADIOLOGY DEPARTMENT: Ultrasound PERIPHERAL IV DATA: Not applicable SIGNED BY: RT Lani(R) February 08, 2025 6:08 AM [facility] Bacteria Wnd Culton 02-09-20 25 Bacteria identified Cx Nom (Wound) ORGANISM ID: 1 Few Staphylococcus aureus ORGANISM ID: 2 Moderate Corynebacterium striatum GRAM STAIN: Rare Gram negative bacilli No Polymorphonuclear Leukocytes ORGANISM ID: 1 (STAPHYLOCOCCUS AUREUS) ANTIBIOTIC INTERPRETATION KIMMY STATUS REFERENCE RANGE Oxacillin S 0.5 F Susceptible <=2 , Resistant >2 Oxacillin-susceptibl e staphylococci are susceptible to other penicilllinase-stabl e penicillins, beta-lactam/beta-lac tamase inhibitor combinations, anti-staphylococcal cephems, and carbapenems. Erythromycin S <=0.25 F Susceptible <=0.5 , Intermediate >.5 , Resistant >4 Clindamycin S 0.25 F Susceptible <=0.5 , Intermediate >.5 , Resistant >2 Trimeth sulfameth R >=320 F Susceptible <=40 , Resistant >40 Vancomycin S <=0.5 F Susceptible <=2 , Intermediate >2 , Resistant >8 Rifampin S <=0.5 F Susceptible <=1 , Intermediate >1 , Resistant >2 Rifampin should not be used alone for antimicrobial therapy. Levofloxacin R 4 F Susceptible <=1 , Intermediate >1 , Resistant >2 Tetracycline S <=1 F Susceptible <=4 , Intermediate >4 , Resistant >8 Doxycycline S <=0.5 F Susceptible <=4 , Intermediate >4 , Resistant >8 ORGANISM ID: 2 (CORYNEBACTERIUM STRIATUM) ANTIBIOTIC INTERPRETATION KIMMY STATUS REFERENCE RANGE Penicillin G R >2 F Susceptible <=0.12 , Intermediate >.12 , Resistant >2 Ceftriaxone R >8 F Susceptible <=1 , Intermediate >1 , Resistant >2 Clindamycin R >16 F Susceptible <=0.5 , Intermediate >.5 , Resistant >2 Vancomycin S <=0.50 F Susceptible <=2 , Nonsusceptible >2 Abnormal [facility] Comment on above: Performed By: #### 2 106-3 #### [facility] CLIA [id number] [address] [place] [address] [place] [facility] Bacteria identified Cx Nom (Wound) ORGANISM ID: 1 Rare Staphylococcus aureus Refer to specimen collected on ([id number]). ORGANISM ID: 2 One colony Coagulase negative staphylococcus species No further workup GRAM STAIN: No organisms seen No Polymorphonuclear Leukocytes Abnormal [facility] Comment on above: Performed By: #### 2 106-3 #### [facility] CLIA [id number] [address] [place] [address] [place] Basic metabolic 2000 panelon 02-08-2025 Anion gap [Moles/Vol] 10 mmol/L Normal 8-15 [facility] Comment on above: Order Comment: Speci men Type: BLOOD SPECIMEN Order[facility] Facility[facility] Address: [address] [place] [address] Performed By: #### 2 4321-2, 15915-1, 82272-4 #### [facility] CLIA [id number] [address] [place] [address] [place] Calcium [Mass/Vol] 9.3 mg/dL Normal 8.5-10.2 [facility] Comment on above: Order Comment: Speci men Type: BLOOD SPECIMEN [facility] Address: [address] [place] [address] Performed By: #### 2 4321-2, 40162-2, 78341-1 #### [facility] CLIA [id number] [address] [place] [address] [place] Chloride [Moles/Vol] 101 mmol/L Normal 98-107 [facility] Comment on above: Order Comment: Speci men Type: BLOOD SPECIMEN [facility] Address: [address] [place] [address] Performed By: #### 2 4321-2, 87168-7, 33931-0 #### [facility] CLIA [id number] [address] [place] [address] [place] CO2 [Moles/Vol] 26 mmol/L Normal 22-30 [facility] Comment on above: Order Comment: Speci men Type: BLOOD SPECIMEN [facility] Address: [address] [place] [id number] Performed By: #### 2 4321-2, 42130-1, 44679-0 #### [facility] CLIA [id number] [address] STATES OF [facility] Creatinine [Mass/Vol] 0.69 mg/dL Normal 0.58-0.96 [facility] Comment on above: Order Comment: Narinder steven Type: BLOOD SPECIMEN [facility] Facility[facility] Address: [address] [place] [address] Performed By: #### 2 4321-2, 63428-2, 56983-2 #### [facility] CLIA [id number] [address] eGFRcr SerPlBld CKD-EPI 2020 111 mL/min/1.73m??? Normal >=60 [facility] Comment on above: Order Comment: Narinder steven Type: BLOOD SPECIMEN Order[facility] Facility[facility] Address: [address] [place] [address] Result Comment: Reyna mated Glomerular Filtration Rate (eGFR) is calculated using the 2020 CKD-EPI creatinine equation. This equation utilizes serum creatinine, sex, and age as parameters. The creatinine assay has traceable calibration to isotope dilution-mass spectrometry. Refer to KDIGO guidelines for clinical interpretation. In patients with unstable renal function, e.g. those with acute kidney injury, the eGFR may not accurately reflect actual GFR. Performed By: #### 2 4321-2, 24445-0, 22200-8 #### [facility] CLIA [id number] [address] STATES OF [facility] Glucose [Mass/Vol] 99 mg/dL Normal 74-99 [facility] Comment on above: Order Comment: Narinder steven Type: BLOOD SPECIMEN Order[facility] Address: [address] [place] [address] Result Comment: The [place] Diabetes Association (ADA) provides guidance for cutoff values for fasting glucose and random glucose. The ADA defines fasting as no caloric intake for at least 8 hours. Fasting plasma glucose results between 100 to 125 mg/dL indicate increased risk for diabetes (prediabetes). Fasting plasma glucose results greater than or equal to 126 mg/dL meet the criteria for diagnosis of diabetes. In the absence of unequivocal hyperglycemia, results should be confirmed by repeat testing. In a patient with classic symptoms of hyperglycemia or hyperglycemic crisis, random plasma glucose results greater than or equal to 200 mg/dL meet the criteria for diagnosis of diabetes. Reference: Standards of Medical Care in Diabetes 2016, [place] [employer]. Diabetes Care. 2016.39(Suppl 1). Performed By: #### 2 4321-2, 59215-6, 40095-5 #### [facility] CLIA [id number] [address] [place] [address] [place] Potassium [Moles/Vol] 4.2 mmol/L Normal 3.7-5.1 [facility] Comment on above: Order Comment: Speci men Type: BLOOD SPECIMEN [facility] Address: [address] [place] [address] Performed By: #### 2 4321-2, 64833-1, 53971-0 #### [facility] CLIA [id number] [address] STATES OF [facility] Sodium [Moles/Vol] 137 mmol/L Normal 136-144 [facility] Comment on above: Order Comment: Chapitoi men Type: BLOOD SPECIMEN [facility] Address: [address] [place] [address] Performed By: #### 2 4321-2, 70602-1, 86606-1 #### [facility] CLIA [id number] [address] [place] Urea nitrogen [Mass/Vol] 9 mg/dL Normal 7-21 [facility] Comment on above: Order Comment: Chapitoi men Type: BLOOD SPECIMEN Order[facility] Address: [address] [place] [address] Performed By: #### 2 4321-2, 69558-0, 25236-1 #### [facility] CLIA [id number] [address] [place] [address] [place] CBC panel Auto (Bld)on 02-08 Erythrocyte distribution width (RBC) [Ratio] 16.5 % High 11.5-15.0 [facility] Comment on above: Order Comment: Chapitoi men Type: BLOOD SPECIMEN Order[facility] Address: [address] [place] [address] Performed By: #### 5 8410-2 #### [facility] CLIA [id number] [address] Hematocrit (Bld) [Volume fraction] 40.7 % Normal 36.0-46.0 [facility] Comment on above: Order Comment: Speci men Type: BLOOD SPECIMEN [facility] Address: [address] [place] [address] Performed By: #### 5 8410-2 #### [facility] CLIA [id number] [address] Hemoglobin (Bld) [Mass/Vol] 12.6 g/dL Normal 11.5-15.5 [facility] Comment on above: Order Comment: Speci men Type: BLOOD SPECIMEN [facility] Address: [address] [place] [address] Performed By: #### 5 8410-2 #### [facility] CLIA [id number] [address] MCH (RBC) [Entitic mass] 24.6 pg Low 26.0-34.0 [facility] Comment on above: Order Comment: Speci men Type: BLOOD SPECIMEN [facility] Address: [address] [place] [address] Performed By: #### 5 8410-2 #### [facility] CLIA [id number] [address] OF [facility] MCHC (RBC) [Mass/Vol] 31.0 g/dL Normal 30.5-36.0 [facility] Comment on above: Order Comment: Speci men Type: BLOOD SPECIMEN Ordering Facility: [facility] Address: [address] [place] [address] Performed By: #### 5 8410-2 #### [facility] CLIA [id number] [address] MCV (RBC) [Entitic vol] 79.5 fL Low 80.0-100.0 [facility] Comment on above: Order Comment: Speci men Type: BLOOD SPECIMEN Ordering Facility: [facility] Address: [address] [place] [address] Performed By: #### 5 8410-2 #### [facility] CLIA [id number] [address] [place] [address] [place] Nucleated RBC (Bld) [#/Vol] 10*3/uL Normal <0.01 [facility] Comment on above: Order Comment: Speci men Type: BLOOD SPECIMEN Ordering Facility: [facility] Address: [address] [place] [address] Performed By: #### 5 8410-2 #### [facility] CLIA [id number] [address] [place] [address] [place] Platelet mean volume (Bld) [Entitic vol] 9.4 fL Normal 9.0-12.7 [facility] Comment on above: Order Comment: Speci men Type: BLOOD SPECIMEN Ordering Facility: [facility] Address: [address] [place] [address] Performed By: #### 5 8410-2 #### [facility] CLIA [id number] [address] [place] Platelets (Bld) [#/Vol] 308 10*3/uL Normal 150-400 [facility] Comment on above: Order Comment: Speci men Type: BLOOD SPECIMEN Ordering Facility: [facility] Address: [address] [place] [address] Performed By: #### 5 8410-2 #### [facility] CLIA [id number] [address] [place] RBC (Bld) [#/Vol] 5.12 10*6/uL Normal 3.90-5.20 [facility] Comment on above: Order Comment: Speci men Type: BLOOD SPECIMEN Ordering Facility: [facility] Address: [address] [place] [address] Performed By: #### 5 8410-2 #### [facility] CLIA [id number] [address] [place] WBC (Bld) [#/Vol] 9.64 10*3/uL Normal 3.70-11.00 [facility] Comment on above: Order Comment: Speci men Type: BLOOD SPECIMEN Ordering Facility: [facility] Address: [address] [place] [id number] Performed By: #### 5 8410-2 #### [facility] [place] [id number] [address] [place] [address] [place] CONSULTon 02-08-2025 CONSULT HNO ID: [id number] Author: RONNY PATEL DPM Service: Podiatry Author Type: Physician Type: Consults Filed: 02/08/2025 12:05 Note Text: PODIATRIC CONSULT NOTE Service Date: February 08, 2025 Admit Date: 02/07/2025 Service Time: 7:47 AM Hospital Day: 0 day(s) Requesting Provider: Olesya Patino MD Primary Care Provider:Akilah Wiggins APRN.SWITCHBOARD AND CONTROL ROOM OPERATOR Consult Regarding: RLE cellulitis, worsening. HPI: Bhupendra Hebert is a 44 year old female patient with the medical history significant for Asthma, HLD, morbid obesity, tobacco use, who presented to the ED with chief complaint of worsening redness, swelling and pain to the right lower extremity. Patient states that she fell downstairs on November scraping the front part of both lower legs. The scrapes resulted into blisters that she ended up draining herself on the December. She treated the area with silver gel. With time the area got worse prompting her to go to [place] [facility] where she was prescribed antibiotics. The antibiotics helped by the last. Once she was finished she noticed that the wounds got worse. She went to [place] [facility] next where she got another prescription of antibiotics. Followed by seeing her PCP that also gave her antibiotics. Patient notes that while on antibiotics the wound gets better however once finished take it worse. She has tried hydrogen peroxide, triple antibiotics, silver gel treatment. Patient denies any F/C/N/V or any other constitutional symptoms. Review of Systems: Patient is AAO x3. No acute distress. PAIN ASSESSMENT: Pain with pressure palpation to bilateral lower extremity wounds. GENERAL: No weight loss, malaise or fevers HEENT: Negative for frequent or significant headaches, No changes in hearing or vision, no nose bleeds or other nasal problems RESPIRATORY: Negative for cough, hemoptysis, wheezing, COPD, dyspnea or shortness of breath CARDIOVASCULAR: Negative for chest pain, leg swelling, hypertension, CHF or palpitations GI: No nausea, vomiting, or diarrhea : No history of dysuria, frequency or incontinence MUSCULOSKELETAL: Negative for joint pain or swelling, back pain or muscle pain SKIN: Ulceration to the anterior aspect of the right lower leg. Superficial ulcer to the medial aspect of the right lower leg. HEMATOLOGY/LYMPHOLOG Y: Negative for prolonged bleeding, bruising easily or swollen nodes See HPI. 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 PTSD (post-traumatic stress disorder) Schizophrenia ([facility]) PAST SURGICAL HISTORY Procedure Laterality Date APPENDECTOMY 12/27/2023 Dr. Granados CHOLECYSTECTOMY HX INSERTION OF IUD 2023 Placed at [facility] Current Facility-Administere d Medications Medication Dose Route Frequency piperacillin-tazobac santos iv piggyback 3.375 g in dextrose (iso-osmotic) 50 mL (ZOSYN) 3.375 g INTRAVENOUS q 6 H vancomycin dosing and monitoring per pharmacy OTHER As Directed NaCl 0.9% iv flush bag 20 mL INTRAVENOUS PRN vancomycin iv piggyback 1.5 g in D5W 300 mL (VANCOCIN) 1.5 g INTRAVENOUS q 12 HR ondansetron (PF) 4 mg injection (ZOFRAN) 4 mg INTRAVENOUS ONCE [START ON 02/08/2025] lumateperone cap 21 mg (CAPLYTA) 21 mg ORAL DAILY risperiDONE 0.5 mg tab(s) (RisperDAL) 0.5 mg ORAL AT BEDTIME [START ON 02/08/2025] buPROPion XL 150 mg tab(s) (WELLBUTRIN XL) 150 mg ORAL DAILY [START ON 02/08/2025] pantoprazole DR 40 mg tab(s) (PROTONIX) 40 mg ORAL DAILY (6 AM) traZODone 50 mg tab(s) (DESYREL) 50 mg ORAL AT BEDTIME acetaminophen 650 mg tab(s) (TYLENOL) 650 mg ORAL q 6 H PRN mometasone-formotero l 100-5 mcg/actuation 2 puff inhaler (DULERA) 2 puff INHALATION BID ciprofloxacin HCl 0.3 % 2 drop (CILOXAN) 2 drop BOTH EYES q 4 H while awake ipratropium-albutero l 3 mL nebulizer solution (DUONEB) 3 mL INHALATION q 4 H PRN propranolol 40 mg tab(s) (INDERAL) 40 mg ORAL TID ALLERGIES Allergen Reactions Nystatin Rash FAMILY HISTORY Problem Relation Age of Onset Hypertension Mother COPD Mother Carotid Disease Mother Ischemic Heart Disease Mother stents Stomach Cancer Father 1994 Hypertension Maternal Grandmother Stomach Cancer Maternal Grandmother 80's Arthritis Maternal Grandmother Dementia Maternal Grandmother Leukemia Maternal Grandfather Cancer Paternal Grandfather No Ocular Disease No Family History Social History Tobacco Use Smoking status: Every Day Current packs/day: 1.00 Average packs/day: 1.5 packs/day for 16.1 years (23.6 ttl pk-yrs) Types: Cigarettes Start date: 01/11/2024 Passive exposure: Never Smokeless tobacco: Never (more content not included)... [facility] CONSULT HNO ID: [id number] Author: JOSE ARMANDO RODAS MD Service: Infectious Disease Author Type: Physician Type: Consults Filed: 02/08/2025 20:58 Note Text: INFECTIOUS DISEASE INITIAL CONSULT SERVICE DATE: 02/08/2025 SERVICE TIME: 11:03 AM REASON FOR CONSULT: cellulitis; failed outpatient treatment Subjective Patient is seen at the request of Dr Fisher. My final recommendations will be communicated back to the requesting physician by way of copy of this note or shared electronic medical record. HPI: This is a 44 year old female with PMHx of asthma/COPD, SAI, GERD, HLD, MPD, obesity, BRITTANY on CPAP, and tobacco abuse who presents to ED for wound check. Patient states that she has chronic right leg wounds over the past two months. She has been on multiple rounds of antibiotics for cellulitis of the RLE with the most recent being a 7 day course of Bactrim 01/24-01/30. She states that after finishing the Bactrim, the redness, pain, and drainage was worse. She called PCP on 02/03 and was instructed to go to ED but she did not want to due to not wanting to drive far. She reports popping blisters on her leg and using topical Silver on the area because that's what her mother in law told her to do. She was seen by PCP today and was sent to ED for IV antibiotics. She also reports hardness at the bottom of her abdomen for the past two months. It is tender with palpation. Does have some nausea, no vomiting. She denies fever, chills, headache, chest pain, shortness of breath, abdominal garcia, nausea, vomiting, or diarrhea. In ED, BP 167/81. WBC 11.31 w/LS. XR tib/fib with no acute findings. She was given Zofran, Vancomycin, and Zosyn. 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 PTSD (post-traumatic stress disorder) Schizophrenia ([facility]) PAST SURGICAL HISTORY Procedure Laterality Date APPENDECTOMY 12/27/2023 Dr. Granados CHOLECYSTECTOMY HX INSERTION OF IUD 2023 Placed at [facility] Social History Tobacco Use Smoking status: Every Day Current packs/day: 1.00 Average packs/day: 1.5 packs/day for 16.1 years (23.6 ttl pk-yrs) Types: Cigarettes Start date: 01/11/2024 Passive exposure: Never Smokeless tobacco: Never Vaping Use Vaping status: Never Used Substance Use Topics Alcohol use: Yes Comment: rare Drug use: Never FAMILY HISTORY Problem Relation Age of Onset Hypertension Mother COPD Mother Carotid Disease Mother Ischemic Heart Disease Mother stents Stomach Cancer Father 1994 Hypertension Maternal Grandmother Stomach Cancer Maternal Grandmother 80's Arthritis Maternal Grandmother Dementia Maternal Grandmother Leukemia Maternal Grandfather Cancer Paternal Grandfather No Ocular Disease No Family History Immunization History Administered Date(s) Administered influenza vaccine, unspecified formulation 03/14/2024 tetanus diphtheria pertussis (Tdap) vaccine, age 7+ yr (ADACEL, BOOSTRIX) 01/24/2025 Current Facility-Administere d Medications Medication Dose Route Frequency nicotine 21 mg/24 hr 1 patch (NICODERM) 1 patch TRANSDERMAL DAILY And nicotine - verify patch OTHER q 8 H miconazole 2 % 1 application topical powder 1 application TOPICAL BID ondansetron (PF) 4 mg injection (ZOFRAN) 4 mg INTRAVENOUS q 6 H PRN piperacillin-tazobac santos iv piggyback 3.375 g in dextrose (iso-osmotic) 50 mL (ZOSYN) 3.375 g INTRAVENOUS q 6 H vancomycin dosing and monitoring per pharmacy OTHER [...] 650 mg ORAL q 6 H PRN mometasone-formotero l 100-5 mcg/actuation 2 puff inhaler (DULERA) 2 puff INHALATION BID ciprofloxacin HCl 0.3 % 2 drop (CILOXAN) 2 drop BOTH EYES q 4 H while awake ipratropium-albutero l 3 mL nebulizer solution (DUONEB) 3 mL INHALATION q 4 H PRN propranolol 40 mg tab(s) (INDERAL) 40 mg ORAL TID ALLERGIES Allergen Reactions Nystatin Rash REVIEW OF SYSTEMS: ROS checked in details x 10 systems and is negative except as noted in the HPI. All qs answered. Objective PHYSICAL EXAM: Temp (24hrs), Av.9 ?C (98.5 ?F), Min:36.8 ?C (98.2 ?F), Max:37.1 ?C (98.7 ?F) BP 130/71 Pulse 79 Temp 36.9 ?C (98.5 ?F) (Axillary) Resp 20 Ht 152.4 cm (5') Wt (!) 1 (more content not included)... Normal [facility] ECG COMPLETEon 02-08-2025 ECG COMPLETE Ventricular Rate : 73 BPM Atrial Rate : 73 BPM P-R Interval : 154 ms QRS Duration : 82 ms Q-T Interval : 406 ms QTC Calculation(Bazett) : 447 ms Calculated P [place] : 12 degrees Calculated R [place] : -21 degrees Calculated T [place] : -32 degrees NORMAL SINUS RHYTHM LOW VOLTAGE QRS NONSPECIFIC T WAVE ABNORMALITY ABNORMAL ECG WHEN COMPARED WITH ECG OF 01-Sep-2023 21:08, QUESTIONABLE CHANGE IN QRS AXIS ST NOW DEPRESSED IN INFERIOR LEADS NON-SPECIFIC CHANGE IN ST SEGMENT IN LATERAL LEADS Confirmed by DEVYN BACON MD ([id number]) on 02/08/2025 6:13:08 PM NAME : BHUPENDRA HEBERT PID : [id number] : 1980 Gender : Female Race : ORD : [id number] Procedure Date : Feb 08 2025 06:10:50 Edit Date : Feb 08 2025 18:13:10 Diagnosis: NORMAL SINUS RHYTHM LOW VOLTAGE QRS NONSPECIFIC T WAVE ABNORMALITY ABNORMAL ECG WHEN COMPARED WITH ECG OF 01-Sep-2023 21:08, QUESTIONABLE CHANGE IN QRS AXIS ST NOW DEPRESSED IN INFERIOR LEADS NON-SPECIFIC CHANGE IN ST SEGMENT IN LATERAL LEADS Confirmed by DEVYN BACON MD ([id number]) on 02/08/2025 6:13:08 PM Test Reason : Check QT Location : 16 : 4S 0411 Overread By : DEVYN BACON MD Edited By : DEVYN BACON MD Referred By : , Acquired by : Gabby edmondson [facility] ECHOon 02-08-2025 Echocardiography Echocardiography Report: Transthoracic [facility] Date of service: 02/08/2025 2:32:41 PM Ordering physician: AUGUST FISHER Exam indication: Shortness of Breath Technologist: Laura Brambila [facility] Interpreting physician: Devyn Bacon MD PATIENT: Name: BHUPENDRA HEBERT : 1980 Age: 44 years Gender: F History of hypertension, dyslipidemia and COPD. Primary rhythm: sinus. Height: 152.40 cm BSA: 2.51 m Weight: 149.00 kg BMI: 64.2 kg/m Heart rate 70 bpm Blood pressure 138/67 mmHg Technically difficult exam due to body habitus, body habitus is 328lbs, 5' and suboptimal positioning. Color Doppler was utilized to interrogate the cardiac valves assessed and spectral Doppler was utilized to determine the flow velocities and pressure gradients reported in this exam. MEASUREMENTS: Value Indexed Normal Max aortic dimension 2.5 cm Ao < 3.8 Left atrial volume 67 ml (Mcdaniel's) 29 ml/m Baltazar <= 34 LV ID (diastole) 5.1 cm (2D) 2.04 cm/m LV ID (systole) 3.0 cm (2D) 1.20 cm/m IVS, leaflet tips 1.1 cm (2D) Posterior wall thickness 1.2 cm (2D) Left ventricular mass 226 g (2D) 90 g/m LV stroke volume 81 ml (2D biplane) LV end diastolic volume 119 ml (2D biplane) 47.4 ml/m 29<=EDVi<62 LV end systolic volume 38 ml (2D biplane) 15.2 ml/m Ejection Fraction 68 % (2D biplane) EF > 54 FINDINGS: LEFT VENTRICLE The left ventricle is normal in size. Left ventricular systolic function is normal. Grade III left ventricular diastolic dysfunction. Mitral annular lateral E/e': 12.4. Mitral annular septal E/e': 9.0. Definity contrast used for endocardial border detection. Wall Motion: All scored segments are normal. RIGHT VENTRICLE The right ventricle is mildly dilated. Right ventricular systolic function is normal. RV systolic tissue Doppler velocity is 10.7 cm/s. Estimated right ventricular systolic pressure is 30 mmHg consistent with normal pulmonary artery pressures. Estimated right atrial pressure is 8 mmHg based on IVC assessment. LEFT ATRIUM The left atrial cavity is moderately dilated. RIGHT ATRIUM The right atrial cavity is normal in size. Inferior Vena Cava: The inferior vena cava appears dilated measuring 2.4 cm. The vessel decreases greater than 50 percent with inspiration. MITRAL VALVE There is no mitral valve regurgitation. There is no thickening. The pressure half time is 62 msec. The peak mitral E/A ratio is 2.16. The average mitral E/e' ratio is 10.7. The mitral flow deceleration time is 214 msec. TRICUSPID VALVE There is trace (trace - 1+) tricuspid valve regurgitation. There is no thickening. AORTIC VALVE The aortic valve cusps are structurally normal. There is no aortic valve regurgitation. Tricuspid aortic valve. PULMONIC VALVE The pulmonic valve was not seen or not interrogated. AORTA The visualized aorta is normal in size. Measurements - Sinus: 2.3 cm. Mid ascending aorta 2.5 cm. PULMONARY ARTERIES The pulmonary arteries are unseen or not interrogated. INTERATRIAL SEPTUM There is no evidence of intracardiac shunting as detected by Doppler. PERICARDIUM There is no pericardial effusion. There is an epicardial fat pad. CONCLUSIONS: - Technically difficult exam due to body habitus, body habitus is 328lbs, 5' and suboptimal positioning. - Exam indication: Shortness of Breath - The left ventricle is normal in size. Left ventricular systolic function is normal. EF = 68 5% (2D biplane) Definity contrast used for endocardial border detection. Grade III left ventricular diastolic dysfunction. - The right ventricle is mildly dilated. Right ventricular systolic function is normal. - The left atrial cavity is moderately dilated. - The patient has not had a prior CC echocardiographic exam for comparison. * * * Final * * * [facility] Medical Image : [id number] DynamicsSISUID Normal [facility] HCG Preg Ur Qlon 02-08-2025 HCG ( test) Ql (U) Negative Normal Negative [facility] Comment on above: Order Comment: Narinder steven Type: URINE SPECIMEN Ordering Facility: [facility] Address: [address] [place] [address] Result Comment: This test is intended to aid in the early detection of . Very dilute urine samples, as indicated by a low specific gravity, may not contain premium representative levels of hCG. This test detects intact hCG only. This test does not reliably detect hCG degradation products, including free-beta subunit and beta-core fragment. Therefore, this test may show reduced reactivity in urine after 8 weeks gestation. A number of conditions other than , including trophoblastic disease and certain non-trophoblastic neoplasms cause elevated levels of hCG. As with any assay employing mouse antibodies, the possibility exists for interference by human anti-mouse antibodies (HAMA) in the specimen. The test provides a presumptive diagnosis for . Performed By: #### 2 106-3 #### [facility] CLIA [id number] [address] [place] [address] [place] Magnesium SerPl-ncon 02-08 Magnesium [Mass/Vol] 1.9 mg/dL Normal 1.7-2.3 [facility] Comment on above: Order Comment: Narinder steven Type: BLOOD SPECIMEN Order[facility]: [facility] Address: [address] [place] [address] Performed By: #### 2 4321-2, 47115-3, 53185-9 #### [facility] CLIA [id number] [address] [place] NT-proBNP [facility] 02-08 Natriuretic peptide.B prohormone N-Terminal [Mass/Vol] 314 pg/mL High <125 [facility] Comment on above: Order Comment: Speci men Type: BLOOD SPECIMEN [facility] Address: [address] [place] [address] Performed By: #### 2 4321-2, 20241-7, 28477-8 #### [facility] CLIA [id number] [address] NURSING PROGon 02-08-2025 NURSING PROG HNO ID: [id number] Author: ROBERT JENSEN RN Service: Nursing Author Type: Registered Nurse Type: Nursing Progress Note Filed: 02/08/2025 10:52 Note Text: Patient refusing kerlix dressing due to it irritating her skin. Wound culture sent of right leg. ABD applied to wound. Normal [facility] URINALYSIS, REFLEX MICROSCOP ICon 02-08-2025 Bacteria LM.HPF (Urine sed) [#/Area] Few Abnormal None Seen [facility] Comment on above: Order Comment: Speci men Type: URINE SPECIMEN [facility] Address: [address] [place] [address] Performed By: #### L [id number] #### [facility] CLIA [id number] [address] [place] Bilirubin Ql (U) Negative Normal Negative [facility] Comment on above: Order Comment: Speci men Type: URINE SPECIMEN Order[facility] Address: [address] [place] [address] Performed By: #### L [id number] #### [facility] CLIA [id number] [address] [place] Clarity (Unsp spec) Clear Normal Clear [facility] Comment on above: Order Comment: Speci men Type: URINE SPECIMEN Order[facility] Address: [address] [place] [address] Performed By: #### L [id number] #### [facility] CLIA [id number] [address] [place] Color (U) Yellow Normal Yellow [facility] Comment on above: Order Comment: Speci men Type: URINE SPECIMEN [facility] Address: [address] [place] [address] Performed By: #### L [id number] #### [facility] CLIA [id number] [address] [place] [address] [facility] [place] Epithelial cells LM.HPF (Urine sed) [#/Area] Moderate Normal [facility] Comment on above: Order Comment: Speci men Type: URINE SPECIMEN [facility] Address: [address] [place] [address] Performed By: #### L [id number] #### [facility] CLIA [id number] [address] [place] Glucose Test strip (U) [Mass/Vol] Negative Normal Negative [facility] Comment on above: Order Comment: Speci men Type: URINE SPECIMEN Order[facility] Address: [address] [place] [address] Performed By: #### L [id number] #### [facility] CLIA [id number] [address] Hemoglobin Ql (U) Trace Abnormal Negative [facility] Comment on above: Order Comment: Speci men Type: URINE SPECIMEN Order[facility] Address: [address] [place] [address] Performed By: #### L [id number] #### [facility] CLIA [id number] [address] [place] Ketones Ql (U) Trace Abnormal Negative [facility] Comment on above: Order Comment: Speci men Type: URINE SPECIMEN Order[facility] Address: [address] [place] [address] Performed By: #### L [id number] #### [facility] CLIA [id number] [address] [place] Leukocyte esterase Test strip Ql (U) Negative Normal Negative [facility] Comment on above: Order Comment: Speci men Type: URINE SPECIMEN Order[facility] Address: [address] [place] [address] Performed By: #### L [id number] #### [facility] CLIA [id number] [address] [place] [address] [place] Nitrite Ql (U) Negative Normal Negative [facility] Comment on above: Order Comment: Speci men Type: URINE SPECIMEN Order[facility] Address: [address] [place] [address] Performed By: #### L [id number] #### [facility] CLIA [id number] [address] [place] pH (U) 6.0 [pH] Normal 5.0-8.0 [facility] Comment on above: Order Comment: Speci men Type: URINE SPECIMEN Order[facility] Address: [address] [place] [address] Performed By: #### L [id number] #### [facility] CLIA [id number] [address] [place] Protein (U) [Mass/Vol] 2+ Abnormal Negative [facility] Comment on above: Order Comment: Speci men Type: URINE SPECIMEN Order[facility] Address: [address] [place] [address] Performed By: #### L [id number] #### [facility] CLIA [id number] [address] [place] RBC LM.HPF (Urine sed) [#/Area] 0-3 /HPF Normal 0-3 /HPF [facility] Comment on above: Order Comment: Speci men Type: URINE SPECIMEN Order[facility] Address: [address] [place] [address] Performed By: #### L [id number] #### [facility] CLIA [id number] [address] [place] Specific gravity (U) [Rel density] 1.025 Normal 1.005-1.030 [facility] Comment on above: Order Comment: Speci men Type: URINE SPECIMEN Ordering [facility] Address: [facility] [place] [address] Performed By: #### L [id number] #### [facility] CLIA [id number] [address] Urobilinogen Ql (U) 0.2 EU/dL Normal 0.2-1.0 EU/dL [facility] Comment on above: Order Comment: Speci men Type: URINE SPECIMEN Order[facility] Address: [address] [place] [address] Performed By: #### L [id number] #### [facility] CLIA [id number] [address] [place] WBC LM.HPF (Urine sed) [#/Area] 0-5 /HPF Normal 0-5 /HPF [facility] Comment on above: Order Comment: Speci men Type: URINE SPECIMEN [facility] Address: [address] [place] [address] Performed By: #### L [id number] #### [facility] CLIA [id number] [address] [place] [address] [place] US DVT LOWER BILon US DVT LOWER LORELEI * * *Final Report* * * DATE OF EXAM: Feb 08 2025 6:10AM U 1005 - US DVT LOWER LORELEI / PROCEDURE REASON: Leg swelling * * * * Physician Interpretation * * * * EXAMINATION: RIGHT AND LEFT LOWER EXTREMITY DEEP VENOUS ULTRASOUND WITH DOPPLER IMAGING CLINICAL HISTORY: Lower extremity pain and swelling TECHNIQUE: Grayscale with compression maneuvers, color Doppler and spectral Doppler imaging of the right and left proximal deep veins was performed. Grayscale with compression maneuvers of the right and left peroneal and posterior tibial veins was performed. The right and left great and small saphenous veins were evaluated at their insertion to the deep system. Images were obtained and stored in a permanent archive. MQ: USLEB_1 COMPARISON: None RESULT: RIGHT LOWER EXTREMITY PROXIMAL DEEP VEINS Distal External Iliac, Common Femoral and Proximal Profunda Veins: Compression: Normal Doppler: Normal, spontaneous respirophasic flow. Normal response to augmentation. Femoral vein: Compression: Normal Doppler: Normal, spontaneous respirophasic flow. Normal response to augmentation. Popliteal vein: Compression: Normal Doppler: Normal, spontaneous respirophasic flow. Normal response to augmentation. CALF DEEP VEINS Peroneal veins: Normal compression. Posterior tibial veins: Normal compression. Gastrocnemius and Soleal veins: Not imaged. SUPERFICIAL VEINS Great saphenous: Patent and compressible at insertion into common femoral vein; not otherwise assessed. Small Saphenous: Patent and compressible in the proximal calf, not otherwise assessed. LEFT LOWER EXTREMITY PROXIMAL DEEP VEINS Distal External Iliac, Common Femoral and Proximal Profunda Veins: Compression: Normal Doppler: Normal, spontaneous respirophasic flow. Normal response to augmentation. Femoral vein: Compression: Normal Doppler: Normal, spontaneous respirophasic flow. Normal response to augmentation. Popliteal vein: Compression: Normal Doppler: Normal, spontaneous respirophasic flow. Normal response to augmentation. CALF DEEP VEINS Peroneal veins: Normal compression. Posterior tibial veins: Normal compression. Gastrocnemius and Soleal veins: Not imaged. SUPERFICIAL VEINS Great saphenous: Patent and compressible at insertion into common femoral vein; not otherwise assessed. Small Saphenous: Patent and compressible in the proximal calf, not otherwise assessed. IMPRESSION: Negative study for proximal DVT in the left and right lower extremities. Negative study for calf DVT in the left and right lower extremities. Negative study for superficial thrombophlebitis in the imaged segments of the left and right lower extremities. [facility] Transcribe Date/Time: Feb 08 2025 7:32A Dictated by : JOURDAN ALMONTE MD This examination was interpreted and the report reviewed and electronically signed by: JOURDAN ALMONTE MD on Feb 08 2025 7:33AM EST [id number] CN [facility] 02-07-2025 [facility] HNO ID: [id number] Author: CARMEN GONZALEZ CT Service: Radiology Author Type: Technologist Type: [facility] Filed: 02/07/2025 22:33 Note Text: Radiology Service Progress Note PATIENT NAME: Bhupendra Hebert DATE OF SERVICE: February 07, 2025 TIME: 10:21 PM PATIENT IDENTITY VERIFICATION COMPLETED USING TWO (2) IDENTIFIERS: Name and Date of confirmed by patient verbally and Name and Date of confirmed by identification band. FALL SCREENING: Has the patient had 2 falls in the last year or 1 fall with injury or currently using an Ambulatory Assistive Device (Walker, Cane, Wheelchair, Crutches, etc.)? Inpatient: Screened on floor PATIENT GENDER DATA: Assigned female at . status: : No status: NO. PATIENT RELEVANT IMPLANT DATA REVIEWED: Not Applicable PATIENT PRESENTS WITH AN IMPLANTABLE OR ATTACHED HUSKER OPERATOR: No RADIOLOGY DEPARTMENT: CT; Exam(s) Completed: Abdomen/Pelvis PERIPHERAL IV DATA: Not applicable SIGNED BY: EMMA Ravi February 07, 2025 10:21 PM Per Mariangel LUCERO pt does not need preg test. [facility] HNO ID: [id number] Author: CARMEN GONZALEZ CT Service: Radiology Author Type: Technologist Type: [facility] Filed: 02/07/2025 22:17 Note Text: Spoke to Akilah Regalado RN, pt not ready for ct at this time.. She will call when ready. [facility] HNO ID: [id number] Author: PINEDA HERNANDEZ RT(R) Service: ? Author Type: Career Development Associate Type: [facility] Filed: 02/07/2025 18:25 Note Text: Radiology Service Progress Note PATIENT NAME: Bhupendra Hebert DATE OF SERVICE: February 07, 2025 TIME: 6:25 PM PATIENT IDENTITY VERIFICATION COMPLETED USING TWO [...] Patient: Screened in ED PATIENT GENDER DATA: Assigned female at . status: : No status: NO. PATIENT RELEVANT IMPLANT DATA REVIEWED: Not Applicable PATIENT PRESENTS WITH AN IMPLANTABLE OR ATTACHED HUSKER OPERATOR: No RADIOLOGY DEPARTMENT: General X-ray: Exam(s) Completed: Lower Extremity X-Ray(s): Tibia Fibula, Right PERIPHERAL IV DATA: Not applicable SIGNED BY: RT Laura(R) February 07, 2025 6:25 PM [facility] Bacteria Bld Culton 02-08-20 25 Bacteria identified Cx Nom (Bld) CULTURE, BLOOD: No growth 5 days [facility] Comment on above: Performed By: #### 2 106-3 #### [facility] CLIA [id number] [address] [place] [address] [place] CBC W Auto Differential pane l (Bld)on 02-07-2025 Basophils (Bld) [#/Vol] 0.07 10*3/uL Normal <0.11 [facility] Comment on above: Order Comment: Speci men Type: BLOOD SPECIMEN Ordering Facility: [facility] Address: [address] [place] [address] Performed By: #### 5 7021-8 #### [facility] CLIA [id number] [address] [place] [address] [place] Basophils/100 WBC (Bld) 0.6 % Normal [facility] Comment on above: Order Comment: Speci men Type: BLOOD SPECIMEN Ordering Facility: [facility] Address: [address] [place] [address] Performed By: #### 5 7021-8 #### [facility] CLIA [id number] [address] Differential cell count method Nom (Bld) Auto Normal [facility] Comment on above: Order Comment: Speci men Type: BLOOD SPECIMEN Ordering Facility: [facility] Address: [address] [place] [address] Performed By: #### 5 7021-8 #### [facility] CLIA [id number] [address] [place] [address] [place] Eosinophils (Bld) [#/Vol] 0.28 10*3/uL Normal <0.46 [facility] Comment on above: Order Comment: Speci men Type: BLOOD SPECIMEN Ordering Facility: [facility] Address: [address] [place] [address] Performed By: #### 5 7021-8 #### [facility] CLIA [id number] [address] OF [facility] Eosinophils/100 WBC (Bld) 2.5 % Normal [facility] Comment on above: Order Comment: Speci men Type: BLOOD SPECIMEN Ordering Facility: [facility] Address: [address] [place] [address] Performed By: #### 5 7021-8 #### [facility] CLIA [id number] [address] [place] Erythrocyte distribution width (RBC) [Ratio] 16.7 % High 11.5-15.0 [facility] Comment on above: Order Comment: Speci men Type: BLOOD SPECIMEN Ordering Facility: [facility] Address: [address] [place] [address] Performed By: #### 5 7021-8 #### [facility] CLIA [id number] [address] OF [place] Hematocrit (Bld) [Volume fraction] 40.6 % Normal 36.0-46.0 [facility] Comment on above: Order Comment: Speci men Type: BLOOD SPECIMEN Ordering Facility: [facility] Address: [address] [place] [address] Performed By: #### 5 7021-8 #### [facility] CLIA [id number] [address] [place] Hemoglobin (Bld) [Mass/Vol] 12.9 g/dL Normal 11.5-15.5 [facility] Comment on above: Order Comment: Speci men Type: BLOOD SPECIMEN Ordering Facility: [facility] Address: [address] [place] [address] Performed By: #### 5 7021-8 #### [facility] CLIA [id number] [address] OF [place] Immature granulocytes (Bld) [#/Vol] 0.06 10*3/uL Normal <0.10 [facility] Comment on above: Order Comment: Speci men Type: BLOOD SPECIMEN Ordering Facility: [facility] Address: [address] [place] [address] Performed By: #### 5 7021-8 #### [facility] CLIA [id number] [address] Immature granulocytes/100 WBC (Bld) 0.5 % Normal [facility] Comment on above: Order Comment: Speci men Type: BLOOD SPECIMEN Ordering Facility: [facility] Address: [address] [place] [address] Performed By: #### 5 7021-8 #### [facility] CLIA [id number] [address] [place] Lymphocytes (Bld) [#/Vol] 1.46 10*3/uL Normal 1.00-4.00 [facility] Comment on above: Order Comment: Speci men Type: BLOOD SPECIMEN Order[facility] Address: [address] [place] [address] Performed By: #### 5 7021-8 #### [facility] CLIA [id number] [address] Lymphocytes/100 WBC (Bld) 12.9 % Normal [facility] Comment on above: Order Comment: Speci men Type: BLOOD SPECIMEN Ordering Facility: [facility] Address: [address] [place] [address] Performed By: #### 5 7021-8 #### [facility] CLIA [id number] [address] STATES [facility] MCH (RBC) [Entitic mass] 24.9 pg Low 26.0-34.0 [facility] Comment on above: Order Comment: Speci men Type: BLOOD SPECIMEN Ordering Facility: [facility] Address: [address] [place] [address] Performed By: #### 5 7021-8 #### [facility] CLIA [id number] [address] MCHC (RBC) [Mass/Vol] 31.8 g/dL Normal 30.5-36.0 [facility] Comment on above: Order Comment: Speci men Type: BLOOD SPECIMEN Ordering [facility] Address: [address] [place] [address] Performed By: #### 5 7021-8 #### [facility] CLIA [id number] [address] MCV (RBC) [Entitic vol] 78.4 fL Low 80.0-100.0 [facility] Comment on above: Order Comment: Speci men Type: BLOOD SPECIMEN Ordering Facility: [facility] Address: [address] [place] [address] Performed By: #### 5 7021-8 #### [facility] CLIA [id number] [address] [place] [address] [place] Monocytes (Bld) [#/Vol] 0.95 10*3/uL High <0.87 [facility] Comment on above: Order Comment: Speci men Type: BLOOD SPECIMEN Ordering Facility: [facility] Address: [address] [place] [address] Performed By: #### 5 7021-8 #### [facility] CLIA [id number] [address] OF [place] Monocytes/100 WBC (Bld) 8.4 % Normal [facility] Comment on above: Order Comment: Speci men Type: BLOOD SPECIMEN Ordering Facility[facility] Address: [address] [place] [address] Performed By: #### 5 7021-8 #### [facility] CLIA [id number] [address] [place] [address] [place] Neutrophils (Bld) [#/Vol] 8.49 10*3/uL High 1.45-7.50 [facility] Comment on above: Order Comment: Speci men Type: BLOOD SPECIMEN Ordering Facility[facility] Address: [address] [place] [address] Performed By: #### 5 7021-8 #### [facility] CLIA [id number] [address] OF [place] Neutrophils/100 WBC (Bld) 75.1 % Normal [facility] Comment on above: Order Comment: Speci men Type: BLOOD SPECIMEN Ordering [facility] Address: [address] [place] [address] Performed By: #### 5 7021-8 #### [facility] CLIA [id number] [address] [place] [address] [place] Nucleated RBC (Bld) [#/Vol] 10*3/uL Normal <0.01 [facility] Comment on above: Order Comment: Speci men Type: BLOOD SPECIMEN Ordering Facility[facility] Address: [address] [place] [address] Performed By: #### 5 7021-8 #### [facility] CLIA [id number] [address] [place] [address] [place] Nucleated RBC/100 WBC (Bld) [Ratio] 0.0 /100 WBC Normal [facility] Comment on above: Order Comment: Speci men Type: BLOOD SPECIMEN Ordering [facility] Address: [address] [place] [address] Performed By: #### 5 7021-8 #### [facility] CLIA [id number] [address] [place] [address] [place] Platelet mean volume (Bld) [Entitic vol] 9.7 fL Normal 9.0-12.7 [facility] Comment on above: Order Comment: Speci men Type: BLOOD SPECIMEN Order[facility] Address: [address] [place] [address] Performed By: #### 5 7021-8 #### [facility] CLIA [id number] [address] [place] Platelets (Bld) [#/Vol] 340 10*3/uL Normal 150-400 [facility] Comment on above: Order Comment: Speci men Type: BLOOD SPECIMEN Order[facility] Address: [address] [place] [address] Performed By: #### 5 7021-8 #### [facility] CLIA [id number] [address] [place] [address] [place] RBC (Bld) [#/Vol] 5.18 10*6/uL Normal 3.90-5.20 [facility] Comment on above: Order Comment: Speci men Type: BLOOD SPECIMEN Order[facility] Address: [address] [place] [address] Performed By: #### 5 7021-8 #### [facility] CLIA [id number] [address] OF [place] WBC (Bld) [#/Vol] 11.31 10*3/uL High 3.70-11.00 [facility] Comment on above: Order Comment: Speci men Type: BLOOD SPECIMEN Ordering Facility[facility] Address: [address], [place] [address] Performed By: #### 5 7021-8 #### [facility] [id number] [address] [place] [address] [facility] CNOVon 02-07-2025 CNOV Office Visit (FAMPWS) BHUPENDRA HEBERT ([id number]) 1980 F Date Time Provider Department 02/07/25 2:20 PM AKILAH WIGGINSWS During your visit today, we recorded the following information about you: Pulse Blood pressure Weight 86/minute 121/80 149 kg Akilah Wiggins, FERNANDO.SWITCHBOARD AND 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 PTSD (post-traumatic stress disorder) Schizophrenia (HCC) Previous Surgical History PAST SURGICAL HISTORY Procedure Laterality Date APPENDECTOMY 12/27/2023 Dr. Roberta CHOLECYSTECTOMY HX INSERTION OF IUD 2023 Placed at [facility] Family History FAMILY HISTORY Problem Relation Age [...] Inhale 1 Puff as instructed twice daily. ipratropium-albutero l (DUONEB) 0.5 mg-3 mg(2.5 mg base)/3 mL nebu Use twice daily scheduled and every 6 hours as needed for Shortness of breath omega-3 acid ethyl esters (LOVAZA) 1 gram capsule Take 1 g by mouth once daily. pantoprazole DR (PROTONIX) 40 mg tablet Take 40 mg by mouth every morning. No current facility-administere d medications on file prior to visit. Social [...] on 03/01/2025 Hepatitis C Screening due on (more content not included)... Normal [facility] CONSULT PROGon 02-07-2025 CONSULT PROG HNO ID: [id number] Author: LAKESHIA GOLDMAN RPh Service: Pharmacy Author Type: Pharmacist Type: Consult Progress Note Filed: 02/07/2025 18:29 Note Text: PHARMACY VANCOMYCIN DOSING NOTE Patient Name: Bhupendra Hebert Admission Date: 02/07/2025 Date of Consult: 02/07/2025 Time of Consult: 6:28 PM Indication: Skin/soft tissue infection Goal Range: 10-20 mcg/mL RECOMMENDATIONS/PLAN : Pharmacy consulted for vancomycin dosing for Bhupendra Hebert, a 44 year old female. 1. Patient is currently ordered Vancomycin 2 g q12h. Today is day 1 of therapy. 2. No vancomycin level has been drawn for this dosing regimen. 3. Will decrease vancomycin to 1.5 g with a dosing interval of q12h. 4. The next vancomycin level will be ordered for 02/09/2025 unless clinically indicated sooner. (Pharmacy will order) We will follow patient renal function, vancomycin levels and doses with you during the course of therapy. Additional recommendations will appear in follow up notes. If you have any questions, please contact pharmacy at [phone]. Age: [age] year old Allergies: ALLERGIES Allergen Reactions Nystatin Rash Last 3 Encounter Wt Readings: Date: Wt: 02/07/2025 147.4 kg (325 lb) 02/07/2025 149 kg (328 lb 7.8 oz) 01/24/2025 154 kg (339 lb 8.1 oz) Last 1 Encounter Ht Readings: Date: Ht: 09/26/2024 152.4 cm (5') CrCl: 178.3 mL/min Temp (24hrs), Av.1 ?C (98.7 ?F), Min:37.1 ?C (98.7 ?F), Max:37.1 ?C (98.7 ?F) - Current Temp: 37.1 ?C (98.7 ?F) Labs BUN (mg/dL) Date Value 02/07/2025 7 01/24/2025 9 12/29/2024 8 Creatinine (mg/dL) Date Value 02/07/2025 0.56 (L) 01/24/2025 0.55 (L) 12/29/2024 0.63 WBC (k/uL) Date Value 02/07/2025 11.31 (H) 01/24/2025 7.98 12/29/2024 10.00 Vancomycin Levels: No results found for: KAROLYN Goldman [facility] Normal [facility] CRP SerPl-mCncon 02-07-2025 CRP [Mass/Vol] 3.4 mg/dL High <0.9 [facility] Comment on above: Order Comment: Speci men Type: BLOOD SPECIMEN [facility] Address: [address] [place] [address] Performed By: #### 1 988-5 #### [facility] CLIA [id number] [address] [place] [address] [place] [address] ABD/PEL WO IVCONon 2024 CT ABD/PEL WO IVCON * * *Final Report* * * DATE OF EXAM: Feb 07 2025 10:40PM [facility] 0531 - CT ABD/PEL WO IVCON / PROCEDURE REASON: Abdominal pain, acute, nonlocalized * * * * Physician Interpretation * * * * EXAMINATION: CT ABDOMEN AND PELVIS WITHOUT IV CONTRAST CLINICAL HISTORY: Abdominal pain TECHNIQUE: Non-IV contrast imaging of the abdomen and pelvis was performed using standard technique, scanning from just above the dome of the diaphragm to the symphysis pubis. Unenhanced imaging is limited for the evaluation of some intra-abdominal and pelvic pathology. MQ: CTAPWO_3 Contrast: IV: None : ml of CT Radiation dose: Integrated Dose-length product (DLP) for this visit = 2204 mGy*cm. CT Dose Reduction Employed: Automated exposure control(AEC) and iterative recon COMPARISON: Abdominal CTs most recently 12/29/2024. RESULT: Additional limitations: Mild motion degradation. Solid abdominal organs: No acute abnormality. Mild pancreatic atrophy. Biliary: Cholecystectomy. GI tract and mesentery: No bowel obstruction or evidence of acute bowel inflammation. Appendectomy. Peritoneal cavity: No free air or free fluid. Retroperitoneum: Unremarkable. Vasculature: Minimal arterial calcification without aortic aneurysm. Pelvis: Unremarkable bladder. Myomatous uterus. IUD in the upper uterine segment. Bones/Soft Tissues: Generalized body wall edema. Similar lower abdominal wall dermal thickening and subcutaneous edema without sizable focal fluid collection. No soft tissue emphysema. Lower thorax: Mild basilar atelectasis/scarring . IMPRESSION: No acute intra-abdominal abnormality detected. Similar lower abdominal wall dermal thickening and subcutaneous edema; exclude cellulitis clinically. Welder Gun: DAVY Transcribe Date/Time: Feb 08 2025 12:31A Dictated by : GUME WILKINSON MD This examination was interpreted and the report reviewed and electronically signed by: GUME WILKINSON MD on Feb 08 2025 12:37AM EST [id number] CN Normal [facility] Comprehensive metabolic 2000 panelon 02-07-2025 Albumin [Mass/Vol] 4.0 g/dL Normal 3.9-4.9 [facility] Comment on above: Order Comment: Speci men Type: URINE SPECIMEN [facility] Address: [address] [place] [address] Performed By: #### 2 106-3 #### [facility] CLIA [id number] [address] [place] [address] [place] ALP [Catalytic activity/Vol] 118 U/L Normal 34-123 [facility] Comment on above: Order Comment: Speci men Type: URINE SPECIMEN Order[facility] Address: [address] [place] [address] Performed By: #### 2 106-3 #### [facility] CLIA [id number] [address] [place] [address] [place] ALT [Catalytic activity/Vol] 25 U/L Normal 7-38 [facility] Comment on above: Order Comment: Speci men Type: URINE SPECIMEN Order[facility] Address: [address] [place] [address] Performed By: #### 2 106-3 #### [facility] CLIA [id number] [address] [place] [address] [place] Anion gap [Moles/Vol] 11 mmol/L Normal 8-15 [facility] Comment on above: Order Comment: Speci men Type: URINE SPECIMEN Order[facility] Address: [address] [place] [address] Performed By: #### 2 106-3 #### [facility] CLIA [id number] [address] [place] [address] [place] AST [Catalytic activity/Vol] 27 U/L Normal 13-35 [facility] Comment on above: Order Comment: Speci men Type: URINE SPECIMEN [facility] Address: [address] [place] [address] Performed By: #### 2 106-3 #### [facility] CLIA [id number] [address] [place] [address] [place] Bilirubin [Mass/Vol] 0.3 mg/dL Normal 0.2-1.3 [facility] Comment on above: Order Comment: Speci men Type: URINE SPECIMEN [facility] Address: [address] [place] [address] Performed By: #### 2 106-3 #### [facility] CLIA [id number] [address] [place] Calcium [Mass/Vol] 9.6 mg/dL Normal 8.5-10.2 [facility] Comment on above: Order Comment: Speci men Type: URINE SPECIMEN [facility] Address: [address] [place] [address] Performed By: #### 2 106-3 #### [facility] CLIA [id number] [address] [place] [address] [place] Chloride [Moles/Vol] 100 mmol/L Normal 98-107 [facility] Comment on above: Order Comment: Speci men Type: URINE SPECIMEN [facility] Address: [address] [place] [address] Performed By: #### 2 106-3 #### [facility] CLIA [id number] [address] [place] [address] [place] CO2 [Moles/Vol] 26 mmol/L Normal 22-30 [facility] Comment on above: Order Comment: Speci men Type: URINE SPECIMEN [facility] Address: [address] [place] [address] Performed By: #### 2 106-3 #### [facility] CLIA [id number] [address] STATES OF [facility] Creatinine [Mass/Vol] 0.56 mg/dL Low 0.58-0.96 [facility] Comment on above: Order Comment: Speci men Type: URINE SPECIMEN [facility] Address: [address] [place] [address] Performed By: #### 2 106-3 #### [facility] CLIA [id number] [address] [place] eGFRcr SerPlBld CKD-EPI 2020 117 mL/min/1.73m??? Normal >=60 [facility] Comment on above: Order Comment: Speci men Type: URINE SPECIMEN [facility] Address: [address] [place] [address] Result Comment: Reyna mated Glomerular Filtration Rate (eGFR) is calculated using the 2020 CKD-EPI creatinine equation. This equation utilizes serum creatinine, sex, and age as parameters. The creatinine assay has traceable calibration to isotope dilution-mass spectrometry. Refer to KDIGO guidelines for clinical interpretation. In patients with unstable renal function, e.g. those with acute kidney injury, the eGFR may not accurately reflect actual GFR. Performed By: #### 2 106-3 #### [facility] CLIA [id number] [address] [place] [address] [place] Glucose [Mass/Vol] 103 mg/dL High 74-99 [facility] Comment on above: Order Comment: Speci men Type: URINE SPECIMEN [facility] Address: [address] [place] [address] Result Comment: The [place] Diabetes [employer] (ADA) provides guidance for cutoff values for fasting glucose and random glucose. The ADA defines fasting as no caloric intake for at least 8 hours. Fasting plasma glucose results between 100 to 125 mg/dL indicate increased risk for diabetes (prediabetes). Fasting plasma glucose results greater than or equal to 126 mg/dL meet the criteria for diagnosis of diabetes. In the absence of unequivocal hyperglycemia, results should be confirmed by repeat testing. In a patient with classic symptoms of hyperglycemia or hyperglycemic crisis, random plasma glucose results greater than or equal to 200 mg/dL meet the criteria for diagnosis of diabetes. Reference: Standards of Medical Care in Diabetes 2016, [place] [employer]. Diabetes Care. 2016.39(Suppl 1). Performed By: #### 2 106-3 #### [facility] CLIA [id number] [address] [place] [address] [place] Potassium [Moles/Vol] 4.3 mmol/L Normal 3.7-5.1 [facility] Comment on above: Order Comment: Speci men Type: URINE SPECIMEN [facility] Address: [address] [place] [address] Performed By: #### 2 106-3 #### [facility] CLIA [id number] [address] [place] [address] [place] Protein [Mass/Vol] 7.6 g/dL Normal 6.3-8.0 [facility] Comment on above: Order Comment: Speci men Type: URINE SPECIMEN [facility]ing Facility: [facility] Address: [address] [place] [address] Performed By: #### 2 106-3 #### [facility] CLIA [id number] [address] [place] [address] [place] Sodium [Moles/Vol] 137 mmol/L Normal 136-144 [facility] Comment on above: Order Comment: Speci men Type: URINE SPECIMEN [facility]ing Facility: [facility] Address: [address] [id number] Performed By: #### 2 106-3 #### [facility] CLIA [id number] [address] [place] [address] [facility] Urea nitrogen [Mass/Vol] 7 mg/dL Normal 7-21 [facility] Comment on above: Order Comment: Speci men Type: URINE SPECIMEN [facility]: [facility] Address: [address] [id number] Performed By: #### 2 106-3 #### [facility] CLIA [id number] [address] ED PROV NOTEon 02-07-2025 ED PROV NOTE HNO ID: [id number] Author: LINDA PARMAR DO Service: Emergency Medicine Author Type: Physician Type: ED Provider Notes Filed: 02/07/2025 19:00 Note Text: ED Provider Note Patient Name: Bhupendra Hebert : 1980 SERVICE DATE: 02/07/25 History Patient presents with: Wound Check: Patient presents to ED with CC of RLE cellulitis that is worsening. Patient states that she has been on several courses of abx with improvement. Now that her abx are done she is having return of pain, spreading redness, and purulent drainage. Sent by PCP. 44-year-old female with a past medical history of ADHD, GERD, COPD, anxiety, presents to the ED today for wound infection, patient has had these chronic wounds to the right lower leg that has been on for couple months, she has been seen by PCP for this with multiple rounds of oral antibiotics without any improvement, she actually went to see her PCP today who recommended ED evaluation for worsening wound infection, denies any fever, denies any other complaints PAST MEDICAL HISTORY Diagnosis Date - ADHD (attention deficit hyperactivity disorder) - Appendicitis - Bilateral corneal abrasions 11/19/2024 - 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 - PTSD (post-traumatic stress disorder) - Schizophrenia (HCC) PAST SURGICAL HISTORY Procedure Laterality Date - APPENDECTOMY 12/27/2023 Dr. Granados - CHOLECYSTECTOMY HX - INSERTION OF IUD 2023 Placed at [facility] FAMILY HISTORY Problem Relation Age of Onset - Hypertension Mother - COPD Mother - Carotid Disease Mother - Ischemic Heart Disease Mother stents - Stomach Cancer Father 1994 - Hypertension Maternal Grandmother - Stomach Cancer Maternal Grandmother 80's - Arthritis Maternal Grandmother - Dementia Maternal Grandmother - Leukemia Maternal Grandfather - Cancer Paternal Grandfather - No Ocular Disease No Family History Social History Tobacco Use - Smoking status: Every Day Current packs/day: 1.00 Average packs/day: 1.5 packs/day for 16.1 years (23.6 ttl pk-yrs) Types: Cigarettes Start date: 01/11/2024 Passive exposure: Never - Smokeless tobacco: Never Vaping Use - Vaping status: Never Used Substance and Sexual Activity - Alcohol use: Yes Comment: rare - Drug use: Never - Sexual activity: Not on file Comment: not asked ALLERGIES Allergen Reactions - Nystatin Rash Review of Systems Constitutional: Negative for chills and fever. HENT: Negative for trouble swallowing. Eyes: Negative for photophobia. Respiratory: Negative for chest tightness, shortness of breath and wheezing. Cardiovascular: Negative for chest pain, palpitations and leg swelling. Gastrointestinal: Negative for abdominal pain, diarrhea, nausea and vomiting. Genitourinary: Negative for dysuria, flank pain, hematuria, pelvic pain, vaginal bleeding and vaginal discharge. Musculoskeletal: Negative for back pain, neck pain and neck stiffness. Skin: Positive for color change and wound. Neurological: Negative for dizziness, numbness and headaches. Psychiatric/Behavior al: Negative for confusion. Physical Exam Vitals [02/07/25 1647] BP Pulse Temp Temp src Resp SpO2 Weight Height 167/81 83 37.1 ?C (98.7 ?F) Oral 20 96 % (!) 147.4 kg (325 lb) -- Physical Exam Constitutional: Appearance: She is well-developed. HENT: Head: Normocephalic and atraumatic. Nose: Nose normal. Eyes: Conjunctiva/sclera: Conjunctivae normal. Cardiovascular: Rate and Rhythm: Normal rate and regular rhythm. Pulmonary: Effort: Pulmonary effort is normal. No respiratory distress. Breath sounds: Normal breath sounds. No wheezing. Abdominal: General: Bowel sounds are normal. Palpations: Abdomen is soft. Musculoskeletal: General: Normal range of motion. Cervical back: Normal range of motion and neck supple. Right lower leg: Edema present. Comments: Right lower leg is swollen with wounds at the right tib-fib region with skin breakdown and drainage and surrounding redness Skin: General: Skin is warm and dry. Neurological: Mental Status: She is alert and oriented to person, place, and time. Psychiatric: Behavior: Behavior normal. Diagnostic Testing ED Labs Ordered and Reviewed COMPLETE BLOOD COUNT AND DIFFERENTIAL - Abnormal; Notable for the following components: Result Value Ref Range WBC 11.31 (*) 3.70 - 11.00 k/uL MCV 78.4 (*) 80.0 - 100.0 fL MCH 24.9 (*) 26.0 - 34.0 pg RDW-CV 16.7 (*) 11.5 - 15.0 % Abs Neut 8.49 (*) 1.45 - 7.50 k/uL Abs Bell 0.95 (*) <0.87 k/uL All other components within normal limits COMPREHENSIVE METABOLIC PANEL - Abnormal; Notable for the following components (more content not included)... Normal [facility] ESR Westergren method (Bld) [Velocity]on 02-07-2025 ESR (Bld) [Velocity] 27 mm/h High 0-20 [facility] Comment on above: Order Comment: Speci men Type: URINE SPECIMEN [facility] Address: [address] [place] [address] Performed By: #### 2 106-3 #### [facility] CLIA [id number] [address] [place] [address] [place] HISTORY PHYSICALon HISTORY PHYSICAL HNO ID: [id number] Author: MARIANGEL KEMP PA-C Service: Hospital Medicine Author Type: Physician Chief Knowledge Officer Type: H&P Filed: 02/07/2025 22:13 Note Text: Attestation signed by Olesya Patino MD at 02/09/2025 12:39 AM Attending Note I have personally reviewed PA note. Agree with above A and P. Olesya Patino MD DEPARTMENT OF HOSPITAL MEDICINE HISTORY AND PHYSICAL EXAM SERVICE DATE: 02/07/2025 SERVICE TIME: 7:10 PM Primary Care Physician: Akilah Wiggins APRN.[facility] NIGHT AND WEEKEND COVERAGE: [facility] COVERAGE: Days: [phone], please page attending physician. Nights: [phone], please page [facility] Night coverage pager [phone]. Subjective CHIEF COMPLAINT: Wound check HPI: This is a 44 year old female with PMHx of asthma/COPD, SAI, GERD, HLD, MPD, obesity, BRITTANY on CPAP, and tobacco abuse who presents to ED for wound check. Patient states that she has chronic right leg wounds over the past two months. She has been on multiple rounds of antibiotics for cellulitis of the RLE with the most recent being a 7 day course of Bactrim 01/24-01/30. She states that after finishing the Bactrim, the redness, pain, and drainage was worse. She called PCP on 02/03 and was instructed to go to ED but she did not want to due to not wanting to drive far. She reports popping blisters on her leg and using topical Silver on the area because that's what her mother in law told her to do. She was seen by PCP today and was sent to ED for IV antibiotics. She also reports hardness at the bottom of her abdomen for the past two months. It is tender with palpation. Does have some nausea, no vomiting. She denies fever, chills, headache, chest pain, shortness of breath, abdominal garcia, nausea, vomiting, or diarrhea. In ED, BP 167/81. WBC 11.31 w/LS. XR tib/fib with no acute findings. She was given Zofran, Vancomycin, and Zosyn. 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 PTSD (post-traumatic stress disorder) Schizophrenia ([facility]) PAST SURGICAL HISTORY Procedure Laterality Date APPENDECTOMY 12/27/2023 Dr. Granados CHOLECYSTECTOMY HX INSERTION OF IUD 2023 Placed at [facility] FAMILY HISTORY Problem Relation Age of Onset Hypertension Mother COPD Mother Carotid Disease Mother Ischemic Heart Disease Mother stents Stomach Cancer Father 1994 Hypertension Maternal Grandmother Stomach Cancer Maternal Grandmother 80's Arthritis Maternal Grandmother Dementia Maternal Grandmother Leukemia Maternal Grandfather Cancer Paternal Grandfather No Ocular Disease No Family History Social History Tobacco Use Smoking status: Every Day Current packs/day: 1.00 Average packs/day: 1.5 packs/day for 16.1 years (23.6 ttl pk-yrs) Types: Cigarettes Start date: 01/11/2024 Passive exposure: Never Smokeless tobacco: Never Vaping Use Vaping status: Never Used Substance Use Topics Alcohol use: Yes Comment: rare Drug use: Never PRIOR TO ADMISSION MEDICATIONS: Prior to Admission Medications Prescriptions Last Dose Informant Patient Reported? Taking? ADVAIR DISKUS 250-50 mcg/dose inhaler Yes No Sig: Inhale 1 Puff as instructed twice daily. CAPLYTA 42 mg capsule Yes No Sig: Take 1 capsule by mouth once daily. Cetirizine (ZYRTEC) 10 mg cap Yes No Sig: Take by mouth. albuterol HFA (PROVENTIL HFA, VENTOLIN HFA) 90 mcg/actuation inhaler Yes No Sig: Albuterol Sulfate (Ventolin Hfa) 90 mcg/actuation HFA aerosol inhaler Active 2 NMA INHALATION EVERY 4 HOURS NEEDED as needed for Wheezing July 11, 2024 1:00am albuterol HFA (PROVENTIL HFA, VENTOLIN HFA) 90 mcg/actuation inhaler No No Sig: Inhale 2 puffs as instructed every 4 hours as needed for wheezing/shortness of breath. buPROPion XL (WELLBUTRIN XL) 150 mg 24 hr tablet No No Sig: Take 1 tablet by mouth once daily. celecoxib (CELEBREX) 100 mg capsule Yes No Sig: Take 100 mg by mouth once daily. fluconazole (DIFLUCAN) 150 mg tablet No No Sig: Take 1 tablet by mouth one time a week for 28 days. ipratropium-albutero l (DUONEB) 0.5 mg-3 mg(2.5 mg base)/3 mL nebu Yes No Sig: Use twice daily scheduled and every 6 hours as needed for Shortness of breath omega-3 acid ethyl esters (LOVAZA) 1 gram capsule Yes No Sig: Take 1 g by mouth once daily. pantoprazole DR (PROTONIX) 40 mg tablet Yes No Sig: Take 40 mg by mouth every morning. propranolol (INDERAL) 10 mg tablet Ye (more content not included)... Normal [facility] SEPSIS LACTATE W/ REFLEX (IN ITIAL)on 02-07-2025 Lactate [Moles/Vol] 1.2 mmol/L Normal 0.5-2.0 [facility] Comment on above: Order Comment: Speci men Type: BLOOD SPECIMEN [facility] Address: [address] [place] [address] Performed By: #### S LACTR #### [facility] CLIA [id number] [address] [place] [address] [place] XR TIBIA FIBULA 2V AP/LAT RT on 02-07-2025 XR TIBIA FIBULA 2V AP/LAT RT * * *Final Report* * * DATE OF EXAM: Feb 07 2025 6:25PM MDX 5266 - XR TIBIA FIBULA 2V AP/LAT RT / PROCEDURE REASON: Osteomyelitis * * * * Physician Interpretation * * * * RIGHT LOWER LEG X-RAY SERIES HISTORY: Osteomyelitis pain TECHNIQUE: AP and lateral views. COMPARISON: None available. RESULT: No fracture, dislocation or destructive changes. Visible joint spaces and articular surfaces are preserved. IMPRESSION: No radiographic evidence of osteomyelitis. Welder Gun: DAVY Transcribe Date/Time: Feb 07 2025 7:05P Dictated by : MIKHAIL ARENAS MD This examination was interpreted and the report reviewed and electronically signed by: MIKHAIL ARENAS MD on Feb 07 2025 7:05PM EST [id number] [facility] 02-03-2025 [facility] Telephone (LORRIEWS) BHUPENDRA HEBERT ([id number]) 1980 F Date Time Provider Department 02/03/25 AKILAH WIGGINS During your visit today, we recorded the following information about you: Tierney Espino LPN 02/03/2025 2:38 PM Signed Patient returned call and she had sent my chart message and picture of her leg to Leyla Wiggins OVERHEAD WORKER. Patient said she completed her 7 day rx of antibiotics and leg is much worse. Patient said her right lower leg and back of her left leg, had few blisters and now draining. Saturates a bandage in less than 2 hours. She is trying to keep her [...] Patient said she will go to ER. Allergies As of Date: 02/03/2025 Noted Allergy Reaction NYSTATIN 01/24/2025 2 - Rash Date Reviewed: 01/24/2025 Reviewed by: Rima Mcrae MA - Fully Assessed Reason for Visit: Patient Update [1234] Prescriptions as of 02/03/2025 - CAPLYTA 42 mg capsule Take 1 capsule by mouth once daily. - buPROPion XL (WELLBUTRIN XL) 150 mg 24 hr tablet Take 1 tablet by mouth once daily. - traZODone (DESYREL) 50 mg tablet Take 1 tablet by mouth daily at bedtime. - fluconazole (DIFLUCAN) 150 mg tablet Take 1 tablet by mouth one time a week for 28 days. - albuterol HFA (PROVENTIL HFA, VENTOLIN HFA) 90 mcg/actuation inhaler Inhale 2 puffs as instructed every 4 hours as needed for wheezing/shortness of breath. - risperiDONE (RISPERDAL) 0.5 mg tablet Take [...] for Wheezing July 11, 2024 1:00am - celecoxib (CELEBREX) 100 mg capsule Take 100 mg by mouth once daily. - atorvastatin (LIPITOR) 10 mg tablet Take 10 mg by mouth once daily. - Cetirizine (ZYRTEC) 10 mg cap Take by mouth. - ADVAIR DISKUS 250-50 mcg/dose inhaler Inhale 1 Puff as instructed twice daily. - ipratropium-albutero l (DUONEB) 0.5 mg-3 mg(2.5 mg base)/3 mL nebu Use twice daily scheduled and every 6 hours as needed for Shortness of breath - omega-3 acid ethyl esters (LOVAZA) 1 gram capsule Take 1 g by mouth once daily. - pantoprazole DR (PROTONIX) 40 mg tablet Take 40 mg by mouth every morning. Problem List As Of Date 02/03/2025 Noted Resolved Acute appendicitis [K35.80] 12/26/2023 12/27/2023 [...] Atelectasis [J98.11] 12/27/2023 Acute appendicitis with generalized peritonitis*12/29/19 24 Right lower quadrant abdominal pain [R10.31] 12/29/2023 Chronic left shoulder pain [M25.512, G89.29] 11/07/2024 PTSD (post-traumatic stress disorder) [F43.10] 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.18] ADHD (attention deficit hyperactivity disorder)* Encounter Status:Closed by LAUREN PARKER on 02/03/25 Normal [facility] CBC W Auto Differential pane l (Bld)on 01-24-2025 Basophils (Bld) [#/Vol] 0.04 10*3/uL [facility] Basophils/100 WBC (Bld) 0.5 % [facility] Differential cell count method Nom (Bld) Auto [facility] Eosinophils (Bld) [#/Vol] 0.16 10*3/uL [facility] Eosinophils/100 WBC (Bld) 2 % [facility] Erythrocyte distribution width (RBC) [Ratio] 17.9 % High 11.5 - 15.0 % [facility] Hematocrit (d) [Volume fraction] 39.3 % 36.0 - 46.0 % [facility] Hemoglobin (Bld) [Mass/Vol] 12.3 g/dL 11.5 - 15.5 g/dL [facility] Immature granulocytes (Bld) [#/Vol] 0.05 10*3/uL [facility] Immature granulocytes/100 WBC (Bld) 0.6 % [facility] Interpretation and review of laboratory results Abnormal [facility] Lymphocytes (Bld) [#/Vol] 1.56 10*3/uL [facility] Lymphocytes/100 WBC (Bld) 19.5 % [facility] MCH (RBC) [Entitic mass] 25.3 pg Low 26. 0 - 34.0 pg [facility] MCHC (RBC) [Mass/Vol] 31.3 g/dL 30.5 - 36.0 g/dL [facility] MCV (RBC) [Entitic vol] 80.7 fL 80.0 - 100.0 fL [facility] Monocytes (Bld) [#/Vol] 0.79 10*3/uL [facility] Monocytes/100 WBC (Bld) 9.9 % [facility] Neutrophils (Bld) [#/Vol] 5.38 10*3/uL [facility] Neutrophils/100 WBC (Bld) 67.5 % [facility] Nucleated RBC (Bld) [#/Vol] [facility] Nucleated RBC/100 WBC (Bld) [Ratio] 0 % /100 WBC [facility] Platelet mean volume (Bld) [Entitic vol] 10.6 fL 9.0 - 12.7 fL [facility] Platelets (Bld) [#/Vol] 272 10*3/uL [facility] RBC (Bld) [#/Vol] 4.87 10*6/uL 3.90 - 5.2 0 m/uL [facility] WBC (Bld) [#/Vol] 7.98 10*3/uL [facility] Basophils (Bld) [#/Vol] 0.04 10*3/uL Normal <0.11 [facility] Comment on above: Order Comment: Speci men Type: BLOOD SPECIMENOrdering Facility: [facility] Address: [address] [place] [address] Performed By: #### 5 7021-8 ####[facility] [id number] [address] [place] Basophils/100 WBC (Bld) 0.5 % Normal [facility] Comment on above: Order Comment: Speci men Type: BLOOD SPECIMENOrdering Facility: [facility] Address: [address] [place] [address] Performed By: #### 5 7021-8 ####[facility] [id number] [place] [address] [place] Differential cell count method Nom (Bld) Auto Normal [facility] Comment on above: Order Comment: Speci men Type: BLOOD SPECIMENOrdering Facility: [facility] Address: [address] [place] [address] Performed By: #### 5 7021-8 ####[facility] [id number] [place] [address] [place] Eosinophils (Bld) [#/Vol] 0.16 10*3/uL Normal <0.46 [facility] Comment on above: Order Comment: Speci men Type: BLOOD SPECIMENOrdering Facility: [facility] Address: [address] [place] [address] Performed By: #### 5 7021-8 ####[facility] [id number] [place] [address] [place] Eosinophils/100 WBC (Bld) 2.0 % Normal [facility] Comment on above: Order Comment: Speci men Type: BLOOD SPECIMENOrdering Facility: [facility] Address: [address] [place] [address] Performed By: #### 5 7021-8 ####[facility] [id number] [place] [address] [place] Erythrocyte distribution width (RBC) [Ratio] 17.9 % High 11.5-15.0 [facility] Comment on above: Order Comment: Speci men Type: BLOOD SPECIMENOrdering Facility: [facility] Address: [address] [place] [address] Performed By: #### 5 7021-8 ####[facility] [id number] [place] [address] [place] Hematocrit (Bld) [Volume fraction] 39.3 % Normal 36.0-46.0 [facility] Comment on above: Order Comment: Speci men Type: BLOOD SPECIMENOrdering Facility: [facility] Address: [address] [place] [address] Performed By: #### 5 7021-8 ####[facility] [id number] [place] [address] [place] Hemoglobin (Bld) [Mass/Vol] 12.3 g/dL Normal 11.5-15.5 [facility] Comment on above: Order Comment: Speci men Type: BLOOD SPECIMENOrdering Facility: [facility] Address: [address] [place] [address] Performed By: #### 5 7021-8 ####[facility] [id number] [place] [address] [place] Immature granulocytes (Bld) [#/Vol] 0.05 10*3/uL Normal <0.10 [facility] Comment on above: Order Comment: Speci men Type: BLOOD SPECIMENOrdering Facility: [facility] Address: [address] [place] [address] Performed By: #### 5 7021-8 ####[facility] [id number] [place] [address] [place] Immature granulocytes/100 WBC (Bld) 0.6 % Normal [facility] Comment on above: Order Comment: Speci men Type: BLOOD SPECIMENOrdering Facility: [facility] Address: [address] [place] [address] Performed By: #### 5 7021-8 ####[facility] [id number] [place] [address] [place] Lymphocytes (Bld) [#/Vol] 1.56 10*3/uL Normal 1.00-4.00 [facility] Comment on above: Order Comment: Speci men Type: BLOOD SPECIMENOrdering Facility: [facility] Address: [address] [place] [address] Performed By: #### 5 7021-8 ####[facility] [id number] [place] [address] [place] Lymphocytes/100 WBC (Bld) 19.5 % Normal [facility] Comment on above: Order Comment: Speci men Type: BLOOD SPECIMENOrdering Facility: [facility] Address: [address] [place] [address] Performed By: #### 5 7021-8 ####[facility] [id number] [place] [address] [place] MCH (RBC) [Entitic mass] 25.3 pg Low 26.0-34.0 [facility] Comment on above: Order Comment: Speci men Type: BLOOD SPECIMENOrdering Facility: [facility] Address: [address] [place] [address] Performed By: #### 5 7021-8 ####[facility] [id number] [place] [address] [place] MCHC (RBC) [Mass/Vol] 31.3 g/dL Normal 30.5-36.0 [facility] Comment on above: Order Comment: Speci men Type: BLOOD SPECIMENOrdering Facility: [facility] Address: [address] [place] [address] Performed By: #### 5 7021-8 ####[facility]IA [id number] [place] [address] [place] MCV (RBC) [Entitic vol] 80.7 fL Normal 80.0-100.0 [facility] Comment on above: Order Comment: Speci men Type: BLOOD SPECIMENOrdering Facility: [facility] Address: [address] [place] [address] Performed By: #### 5 7021-8 ####[facility] [id number] [place] [address] [place] Monocytes (Bld) [#/Vol] 0.79 10*3/uL Normal <0.87 [facility] Comment on above: Order Comment: Speci men Type: BLOOD SPECIMENOrdering Facility: [facility] Address: [address] [place] [address] Performed By: #### 5 7021-8 ####[facility] [id number] [place] [address] [place] Monocytes/100 WBC (Bld) 9.9 % Normal [facility] Comment on above: Order Comment: Speci men Type: BLOOD SPECIMENOrdering Facility: [facility] Address: [address] [place] [address] Performed By: #### 5 7021-8 ####[facility] [id number] [place] [address] [place] Neutrophils (Bld) [#/Vol] 5.38 10*3/uL Normal 1.45-7.50 [facility] Comment on above: Order Comment: Speci men Type: BLOOD SPECIMENOrdering Facility: [facility] Address: [address] [place] [address] Performed By: #### 5 7021-8 ####[facility] LABCLIA [id number] [facility] [place] [id number] [place] Neutrophils/100 WBC (Bld) 67.5 % Normal [facility] [place] Comment on above: Order Comment: Speci men Type: BLOOD SPECIMENOrdering Facility: [facility] Address: [address] [place] [address] Performed By: #### 5 7021-8 ####[facility] LABCLIA [id number] [place] [id number] [place] Nucleated RBC (Bld) [#/Vol] 10*3/uL Normal <0.01 [facility] [place] Comment on above: Order Comment: Speci men Type: BLOOD SPECIMENOrdering Facility: [facility] Address: [address] [place] [address] Performed By: #### 5 7021-8 ####[facility] LABCLIA [id number] [place] [address] [place] Nucleated RBC/100 WBC (Bld) [Ratio] 0.0 /100 WBC Normal [facility] [place] Comment on above: Order Comment: Speci men Type: BLOOD SPECIMENOrdering Facility: [facility] Address: [address] [place] [address] Performed By: #### 5 7021-8 ####[facility] LABCLIA [id number] [place] [address] [place] Platelet mean volume (Bld) [Entitic vol] 10.6 fL Normal 9.0-12.7 [facility] [place] Comment on above: Order Comment: Speci men Type: BLOOD SPECIMENOrdering Facility: [facility] Address: [address] [place] [address] Performed By: #### 5 7021-8 ####[facility] LABCLIA [id number] [place] [address] [place] Platelets (Bld) [#/Vol] 272 10*3/uL Normal 150-400 [facility] [place] Comment on above: Order Comment: Speci men Type: BLOOD SPECIMENOrdering Facility: [facility] Address: [address] [place] [address] Performed By: #### 5 7021-8 ####[facility] LABCLIA [id number] [place] [address] [place] RBC (Bld) [#/Vol] 4.87 10*6/uL Normal 3.90-5.20 [facility] Comment on above: Order Comment: Speci men Type: BLOOD SPECIMENOrdering Facility: [facility] Address: [address] [place] [address] Performed By: #### 5 7021-8 ####[facility] LABCLIA [id number] [place] [address] [place] WBC (Bld) [#/Vol] 7.98 10*3/uL Normal 3.70-11.00 [facility] Comment on above: Order Comment: Speci men Type: BLOOD SPECIMENOrdering Facility: [facility] Address: [address] [place] [address] Performed By: #### 5 7021-8 ####[facility] LABCLIA [id number] [place] [id number] [place] CNOVon 01-24-2025 CNOV Office Visit (JOSE MIGUEL) BHUPENDRA HEBERT ([id number]) 1980 F Date Time Provider Department 01/24/25 11:40 AM AKILAH WIGGINS During your visit today, we recorded the following information about you: Pulse Blood pressure Weight 85/minute 127/76 154 kg Akilah Wiggins APRN.[facility] 01/24/2025 12:40 PM Signed Chief Complaint Patient presents with: Establish Care HPI Bhupendra Hebert is a 44 year old female [...] daily. (Patient not taking: Reported on 12/28/2024) dextromethorphan-gua iFENesin (MUCINEX DM) 30-600 mg per tablet Take 1 tablet by mouth two times a day. (Patient not taking: Reported on 12/28/2024) Cetirizine (ZYRTEC) 10 mg cap Take by mouth. ADVAIR DISKUS 250-50 mcg/dose inhaler Inhale 1 Puff as instructed twice daily. ipratropium-albutero l (DUONEB) 0.5 mg-3 mg(2.5 mg base)/3 mL nebu Use twice daily scheduled and every 6 hours as needed for Shortness of breath omega-3 acid ethyl esters (LOVAZA) 1 gram capsule Take 1 g by mouth once daily. pantoprazole DR (PROTONIX) 40 mg tablet Take 40 mg by mouth every morning. No current facility-administere d medications on file prior to visit. Social History Social History Tobacco Use Smoking status: Every Day Current packs/day: 1.50 Average packs/day: 1.5 packs/day for 15.0 years (22.5 ttl pk-yrs) Types: Cigarettes Passive exposure: Never Smokeless tobacco: Never Vaping Use Vaping status: Never Used Substance Use Topics Alcohol use: Yes Comment: rare Drug use: Never Review of Sympt (more content not included)... [facility] (JOSE MIGUEL) BHUPENDRA HEBERT ([id number]) 1980 F Date Time Provider Department 01/24/25 AKILAH WIGGINS During your visit today, we recorded the following information about you: Maximus Aponte RN 01/24/2025 2:50 PM Signed Randy with [facility] calls to let provider know that the fluconazole that is prescribed for patient has a severe interaction with one of the medications that patient is prescribed by [facility]. The interaction would be with Caplyta and can cause increasingly high levels in the blood and lead to seizures. Caplyta last filled 01/03/2025. Randy says there is no alternative to the fluconazole. Please review and advise, CHAIM Larose Danielle, APRN.[employer] 01/24/2025 3:01 PM Signed I am aware of the interaction and will have close follow up with patient but she had an allergic reaction to nystatin so fluconazole is the only option. Maximus Aponte RN 01/24/2025 3:42 PM Signed Call placed to Randy with [facility] and notified of below with verbalized understanding. Maximus Aponte RN Allergies As of Date: 01/24/2025 Noted Allergy Reaction NYSTATIN 01/24/2025 2 - Rash Date Reviewed: 01/24/2025 Reviewed by: Rima Mcrae MA - Fully Assessed Reason for Visit: Medication Problem [65] Prescriptions as of 01/24/2025 - CAPLYTA 42 mg capsule Take 1 capsule by mouth once daily. - sulfamethoxazole-tri methoprim (BACTRIM DS) 800-160 mg per tablet Take 1 tablet by mouth two times a day for 7 days. - buPROPion XL (WELLBUTRIN XL) 150 mg 24 hr tablet Take 1 tablet by mouth once daily. - traZODone (DESYREL) 50 mg tablet Take 1 tablet by mouth daily at bedtime. - fluconazole (DIFLUCAN) 150 mg tablet Take 1 tablet by mouth one time a week for 28 days. - albuterol HFA (PROVENTIL HFA, VENTOLIN HFA) 90 mcg/actuation inhaler Inhale 2 puffs as instructed every 4 hours as needed for wheezing/shortness of breath. - risperiDONE (RISPERDAL) 0.5 mg tablet Take [...] for Wheezing July 11, 2024 1:00am - celecoxib (CELEBREX) 100 mg capsule Take 100 mg by mouth once daily. - atorvastatin (LIPITOR) 10 mg tablet Take 10 mg by mouth once daily. - Cetirizine (ZYRTEC) 10 mg cap Take by mouth. - ADVAIR DISKUS 250-50 mcg/dose inhaler Inhale 1 Puff as instructed twice daily. - ipratropium-albutero l (DUONEB) 0.5 mg-3 mg(2.5 mg base)/3 mL nebu Use twice daily scheduled and every 6 hours as needed for Shortness of breath - omega-3 acid ethyl esters (LOVAZA) 1 gram capsule Take 1 g by mouth once daily. - pantoprazole DR (PROTONIX) 40 mg tablet Take 40 mg by mouth every morning. Problem List As Of Date 01/24/2025 Noted Resolved Acute appendicitis [K35.80] 12/26/2023 12/27/2023 [...] Atelectasis [J98.11] 12/27/2023 Acute appendicitis with generalized peritonitis*12/29/19 24 Right lower quadrant abdominal pain [R10.31] 12/29/2023 Chronic left shoulder pain [M25.512, G89.29] 11/07/2024 PTSD (post-traumatic stress disorder) [F43.10] 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.18] ADHD (attention deficit hyperactivity disorder)* Encounter Status:Closed by MAXIMUS APONTE on 01/24/25 Normal [facility] Comprehensive metabolic 2000 panelon 01-24-2025 Albumin [Mass/Vol] 3.8 g/dL Low 3.9 - 4.9 g/dL [facility] ALP [Catalytic activity/Vol] 102 U/L 34 - 123 U/L [facility] ALT [Catalytic activity/Vol] 25 U/L 7 - 38 U/L [facility] Anion gap [Moles/Vol] 12 mmol/L 8 - 15 mmol/L [facility] AST [Catalytic activity/Vol] 26 U/L 13 - 35 U/L [facility] Bilirubin [Mass/Vol] 0.3 mg/dL 0.2 - 1 .3 mg/dL [facility] Calcium [Mass/Vol] 9.1 mg/dL 8.5 - 10. 2 mg/dL [facility] Chloride [Moles/Vol] 104 mmol/L 98 - 10 7 mmol/L [facility] CO2 [Moles/Vol] 23 mmol/L 22 - 30 mmol/L [facility] Creatinine [Mass/Vol] 0.55 mg/dL Low 0.58 - 0.96 mg/dL [facility] GFR/1.73 sq M.predicted among non-blacks MDRD (S/P/Bld) [Vol rate/Area] 118 mL/min/{1.73_m2} - PINF [facility] Comment on above: Estimated Glomerular Filtration Rate (eGFR) is calculated using the 2020 CKD-EPI creatinine equation. This equation utilizes serum creatinine, sex, and age as parameters. The creatinine assay has traceable calibration to isotope dilution-mass spectrometry. Refer to KDIGO guidelines for clinical interpretation. In patients with unstable renal function, e.g. those with acute kidney injury, the eGFR may not accurately reflect actual GFR. Glucose [Mass/Vol] 98 mg/dL 74 - 99 mg/dL [facility] Comment on above: The [place] Diab[employer] [place] Association (ADA) provides guidance for cutoff values for fasting glucose and random glucose. The ADA defines fasting as no caloric intake for at least 8 hours. Fasting plasma glucose results between 100 to 125 mg/dL indicate increased risk for diabetes (prediabetes). Fasting plasma glucose results greater than or equal to 126 mg/dL meet the criteria for diagnosis of diabetes. In the absence of unequivocal hyperglycemia, results should be confirmed by repeat testing. In a patient with classic symptoms of hyperglycemia or hyperglycemic crisis, random plasma glucose results greater than or equal to 200 mg/dL meet the criteria for diagnosis of diabetes. Reference: Standards of Medical Care in Diabetes 2016, [place] [employer] Association. Diabetes Care. 2016.39(Suppl 1). Potassium [Moles/Vol] 4.2 mmol/L 3.7 - 5.1 mmol/L [facility] Protein [Mass/Vol] 6.8 g/dL 6.3 - 8.0 g/dL [facility] Sodium [Moles/Vol] 139 mmol/L 136 - 144 mmol/L [facility] Urea nitrogen [Mass/Vol] 9 mg/dL 7 - 21 mg/d L [facility] Albumin [Mass/Vol] 3.8 g/dL Low 3.9-4.9 [facility] Comment on above: Order Comment: Speci men Type: BLOOD SPECIMENOrdering Facility: [facility] Address: [address] [place] [address] Performed By: #### 2 4323-8, 3053-6, 3024-7, LIPNF ####[facility] LABCLIA [id number] [place] [address] [place] ALP [Catalytic activity/Vol] 102 U/L Normal 34-123 [facility] Comment on above: Order Comment: Speci men Type: BLOOD SPECIMENOrdering Facility: [facility] Address: [address] [place] [address] Performed By: #### 2 4323-8, 3053-6, 3024-7, LIPNF ####[facility] LABCLIA [id number] [address] [address] [place] ALT [Catalytic activity/Vol] 25 U/L Normal 7-38 [facility] Comment on above: Order Comment: Speci men Type: BLOOD SPECIMENOrdering Facility: [facility] Address: [address] [place] [address] Performed By: #### 2 4323-8, 3053-6, 3024-7, LIPNF ####[facility] LABIA [id number] [place] [id number] [place] Anion gap [Moles/Vol] 12 mmol/L Normal 8-15 [facility] Comment on above: Order Comment: Speci men Type: BLOOD SPECIMENOrdering Facility: [facility] Address: [address] [place] [address] Performed By: #### 2 4323-8, 3053-6, 3024-7, LIPNF ####[facility] LABIA [id number] [place] [id number] [place] AST [Catalytic activity/Vol] 26 U/L Normal 13-35 [facility] [place] Comment on above: Order Comment: Speci men Type: BLOOD SPECIMENOrdering Facility: [facility] Address: [address] [place], [place] [id number] Performed By: #### 2 4323-8, 3053-6, 3024-7, LIPNF ####[facility] LABIA [id number] [address] [address] [place] Bilirubin [Mass/Vol] 0.3 mg/dL Normal 0.2-1.3 [facility] Comment on above: Order Comment: Speci men Type: BLOOD SPECIMENOrdering Facility: [facility] Address: [address] [place], [place] [id number] Performed By: #### 2 4323-8, 3053-6, 7, LIPNF ####[facility] LABCLIA [id number] [address] [address] [place] Calcium [Mass/Vol] 9.1 mg/dL Normal 8.5-10.2 [facility] Comment on above: Order Comment: Speci men Type: BLOOD SPECIMENOrdering Facility: [facility] Address: [address] [place] [address] Performed By: #### 2 4323-8, 3053-6, 7, LIPNF ####[facility] LABCLIA [id number] [place] [id number] [place] Chloride [Moles/Vol] 104 mmol/L Normal 98-107 [facility] Comment on above: Order Comment: Speci men Type: BLOOD SPECIMENOrdering Facility: [facility] Address: [address] [place] [address] Performed By: #### 2 4323-8, 3053-6, 7, LIPNF ####[facility] LABIA [id number] [place] [id number] [place] CO2 [Moles/Vol] 23 mmol/L Normal 22-30 [facility] Comment on above: Order Comment: Speci men Type: BLOOD SPECIMENOrdering Facility: [facility] Address: [address] [place], [place] [phone] Performed By: #### 2 4323-8, 3053-6, 7, LIPNF ####[facility] LABIA [id number] [address] [address] [place] Creatinine [Mass/Vol] 0.55 mg/dL Low 0.58-0.96 [facility] Comment on above: Order Comment: Speci men Type: BLOOD SPECIMENOrdering Facility: [facility] Address: [address] [place], [place] [phone] Performed By: #### 2 4323-8, 3053-6, 302-7, LIPNF ####[facility] LABCLIA [id number] [place] [address] [place] eGFRcr SerPlBld CKD-EPI 2020 118 mL/min/1.73m??? Normal >=60 [facility] Comment on above: Order Comment: Narinder steven Type: BLOOD SPECIMENOrdering Facility: [facility] Address: [address] [place] [address] Result Comment: Reyna mated Glomerular Filtration Rate (eGFR) is calculated using the 2020 CKD-EPI creatinine equation. This equation utilizes serum creatinine, sex, and age as parameters. The creatinine assay has traceable calibration to isotope dilution-mass spectrometry. Refer to KDIGO guidelines for clinical interpretation. In patients with unstable renal function, e.g. those with acute kidney injury, the eGFR may not accurately reflect actual GFR. Performed By: #### 2 4323-8, 3053-6, 3023-7, LIPNF ####[facility] LABCLIA [id number] [place] [address] [place] Glucose [Mass/Vol] 98 mg/dL Normal 74-99 [facility] Comment on above: Order Comment: Narinder steven Type: BLOOD SPECIMENOrdering Facility: [facility] Address: [address] [place] [address] Result Comment: The [place] Diabetes Association (ADA) provides guidance for cutoff values for fasting glucose and random glucose. The ADA defines fasting as no caloric intake for at least 8 hours. Fasting plasma glucose results between 100 to 125 mg/dL indicate increased risk for diabetes (prediabetes). Fasting plasma glucose results greater than or equal to 126 mg/dL meet the criteria for diagnosis of diabetes. In the absence of unequivocal hyperglycemia, results should be confirmed by repeat testing. In a patient with classic symptoms of hyperglycemia or hyperglycemic crisis, random plasma glucose results greater than or equal to 200 mg/dL meet the criteria for diagnosis of diabetes. Reference: Standards of Medical Care in Diabetes 2016, [place] [employer]. Diabetes Care. 2016.39(Suppl 1). Performed By: #### 2 4323-8, 3053-6, 3024-7, LIPNF ####[facility] LABCLIA [id number] [address] [address] [place] Potassium [Moles/Vol] 4.2 mmol/L Normal 3.7-5.1 [facility] Comment on above: Order Comment: Speci men Type: BLOOD SPECIMENOrdering Facility: [facility] Address: [address] [place] [address] Performed By: #### 2 4323-8, 305-6, 7, LIPNF ####[facility] LABCLIA [id number] [address] [address] [place] Protein [Mass/Vol] 6.8 g/dL Normal 6.3-8.0 [facility] Comment on above: Order Comment: Speci men Type: BLOOD SPECIMENOrdering Facility: [facility] Address: [address] [place] [address] Performed By: #### 2 4323-8, 3052-6, 3024-01, LIPNF ####[facility] LABCLIA [id number] [address] [address] [place] Sodium [Moles/Vol] 139 mmol/L Normal 136-144 [facility] Comment on above: Order Comment: Speci men Type: BLOOD SPECIMENOrdering Facility: [facility] Address: [address] [place] [address] Performed By: #### 2 4323-8, 305-6, 7, LIPNF ####[facility] LABCLIA [id number] [address] [address] [place] Urea nitrogen [Mass/Vol] 9 mg/dL Normal 7-21 [facility] Comment on above: Order Comment: Speci men Type: BLOOD SPECIMENOrdering Facility: [facility] Address: [address] [place], [place] [phone] Performed By: #### 2 4323-8, 305-6, 7, LIPNF ####[facility] LABCLIA [id number] [place] [id number] [place] HbA1c (Bld)on 01-24-2025 Average glucose Estimated from glycated hemoglobin (Bld) [Mass/Vol] 123 mg/dL Normal [facility] Comment on above: Order Comment: Narinder steven Type: BLOOD SPECIMENOrdering Facility: [facility] Address: [address] [place] [address] Result Comment: eAG: (Estimated average glucose) is a calculated value from HgbA1c and is premium representative of the average blood glucose level in the last 2-3 month period. Performed By: #### 5 5454-3 ####[facility] [id number] [address] STATES OF [facility] HbA1c (Bld) [Mass fraction] 5.9 % High 4.3-5.6 [facility] Comment on above: Order Comment: Narinder steven Type: BLOOD SPECIMENOrdering Facility: [facility] Address: [address] [place] [address] Result Comment: Amer [place] Diabetes Association guidelines indicate that patients with HgbA1c in the range 5.7-6.4% are at increased risk for development of diabetes, and intervention by lifestyle modification may be beneficial. HgbA1c greater or equal to 6.5% is considered diagnostic of diabetes. Performed By: #### 5 5454-3 ####[facility] [id number] [place] [address] [place] Insulin SerPl-aCncon 025 Insulin Qn 90.8 uU/mL High 2.6-24.9 [facility] Comment on above: Order Comment: Narinder steven Type: BLOOD SPECIMENOrdering Facility: [facility] Address: [address] [place] [address] Performed By: #### 2 0448-7 ####[facility] LABIA [id number] [place] [id number] [place] LIPID PANEL, NONFASTINGon Cholesterol [Mass/Vol] 187 mg/dL NINF - 200 mg/dL [facility] Comment on above: <200 mg/dL, Desirabl e 200-239 mg/dL, Borderline high >239 mg/dL, High HDL Cholesterol, Nonfasting 26 mg/dL Low 39 - PINF mg/dL [facility] Comment on above: 40-59 mg/dL, Accepta ble >59 mg/dL, High: Negative risk factor for coronary heart disease <40 mg/dL, Low: Positive risk factor for coronary heart disease LDL Cholesterol Calculated, Nonfasting 114 mg/dL High NINF - 100 mg/dL [facility] Comment on above: <100 mg/dL, Optimal 100-129 mg/dL, Near optimal/above optimal 130-159 mg/dL, Borderline high 160-189 mg/dL, High >189 mg/dL, Very high Secondary prevention optimal LDL Cholesterol levels are recommended to be <70 mg/dL LDL cholesterol is calculated using the Cutler-NIH equation. LDL/HDL Ratio, Nonfasting 4.38 mg/dL High NINF - 2.54 mg/dL [facility] Comment on above: Reference: 1. National Cholesterol Education Program ATP III Guideline At-A-Glance Quick Desk Reference: National Heart, Lung, and Blood [place]. National Institutes of Health. 2001: NIH Publication No. 01-3305. 2. An International Atherosclerosis Society position paper: global recommendations for the management of dyslipidemia: executive summary, Atherosclerosis. 2014: 232(2):410-413. Non HDL Cholesterol, Nonfasting 161 mg/dL High NINF - 130 mg/dL [facility] Comment on above: <130 mg/dL, Optimal 130-159 mg/dL, Near optimal/above optimal 160-189 mg/dL, Borderline high 190-219 mg/dL, High >219 mg/dL, Very high Secondary prevention optimal non HDL Cholesterol levels are recommended to be <100 mg/dL Total Chol/HDL Ratio, Nonfasting 7.19 mg/dL High NINF - 5.10 mg/dL [facility] Triglycerides, Nonfasting 266 mg/dL High NINF - 150 mg/dL [facility] Comment on above: <150 mg/dL, Normal 150-199 mg/dL, Borderline high 200-499 mg/dL, High >499 mg/dL, Very high VLDL Cholesterol, Nonfasting 46 mg/dL High NINF - 30 mg/dL [facility] Cholesterol [Mass/Vol] 187 mg/dL Normal <200 [facility] Comment on above: Order Comment: Speci men Type: BLOOD SPECIMENOrdering Facility: [facility] Address: [address] [place] [address] Result Comment: <200 mg/dL, Desirable 200-239 mg/dL, Borderline high >239 mg/dL, High Performed By: #### 2 4323-8, 3053-6, 3024-7, LIPNF ####[facility] LABCLIA [id number] [place] [id number] [place] HDL CHOLESTEROL, NF 26 mg/dL Low >39 [facility] Comment on above: Order Comment: Speci men Type: BLOOD SPECIMENOrdering Facility: [facility] Address: [address] [place] [address] Result Comment: 40-5 9 mg/dL, Acceptable >59 mg/dL, High: Negative risk factor for coronary heart disease <40 mg/dL, Low: Positive risk factor for coronary heart disease Performed By: #### 2 4323-8, 3053-6, 3024-7, LIPNF ####[facility] LABCLIA [id number] [address], [place] [address] [place] LDL CHOLESTEROL CALCULATED, NF 114 mg/dL High <100 [facility] Comment on above: Order Comment: Speci men Type: BLOOD SPECIMENOrdering Facility: [facility] Address: [address] [place] [address] Result Comment: <100 mg/dL, Optimal 100-129 mg/dL, Near optimal/above optimal 130-159 mg/dL, Borderline high 160-189 mg/dL, High >189 mg/dL, Very high Secondary prevention optimal LDL Cholesterol levels are recommended to be <70 mg/dL LDL cholesterol is calculated using the Cutler-NIH equation. Performed By: #### 2 4323-8, 3053-6, 3024-7, LIPNF ####[facility] LABCLIA [id number] [address] [place] [address] [place] LDL/HDL RATIO, NF 4.38 mg/dL High <2.54 [facility] Comment on above: Order Comment: Chapitoantonio steven Type: BLOOD SPECIMENOrdering Facility: [facility] Address: [address] [place] [address] Result Comment: Zayrae mello: 1. National Cholesterol Education Program ATP III Guideline At-A-Glance Quick Desk Reference: National Heart, Lung, and Blood [place]. National Institutes of Health. 2001: NIH Publication No. 01-3305. 2. An International Atherosclerosis Society position paper: global recommendations for the management of dyslipidemia: executive summary, Atherosclerosis. 2014: 232(2):410-413. Performed By: #### 2 4323-8, 3053-6, 3024-7, LIPNF ####[facility] LABCLIA [id number] [place] [address] [place] NON HDL CHOL, NF 161 mg/dL High <130 [facility] Comment on above: Order Comment: Chapitoantonio steven Type: BLOOD SPECIMENOrdering Facility: [facility] Address: [address] [place] [address] Result Comment: <130 mg/dL, Optimal 130-159 mg/dL, Near optimal/above optimal 160-189 mg/dL, Borderline high 190-219 mg/dL, High >219 mg/dL, Very high Secondary prevention optimal non HDL Cholesterol levels are recommended to be <100 mg/dL Performed By: #### 2 4323-8, 3053-6, 3024-7, LIPNF ####[facility] LABCLIA [id number] [address] [place] CHOL/HDL RATIO NF 7.19 mg/dL High <5.10 [facility] Comment on above: Order Comment: Narinder steven Type: BLOOD SPECIMENOrdering Facility: [facility] Address: [address] [place] [address] Performed By: #### 2 4323-8, 3053-6, 3024-7, LIPNF ####[facility] LABCLIA [id number] [place] [id number] [place] TRIGLYCERIDES, NF 266 mg/dL High <150 [facility] Comment on above: Order Comment: Speci men Type: BLOOD SPECIMENOrdering Facility: [facility] Address: [address] [place] [address] Result Comment: <150 mg/dL, Normal 150-199 mg/dL, Borderline high 200-499 mg/dL, High >499 mg/dL, Very high Performed By: #### 2 4323-8, 3053-6, 3024-7, LIPNF ####[facility] LABCLIA [id number] [place] [address] [place] VLDL CHOLESTEROL, NF 46 mg/dL High <30 [facility] Comment on above: Order Comment: Speci men Type: BLOOD SPECIMENOrdering Facility: [facility] Address: [address] [place] [address] Performed By: #### 2 4323-8, 3053-6, 3024-7, LIPNF ####[facility] LABCLIA [id number] [place] [id number] [place] No Panel Informationon 01-24 Interpretation and review of laboratory results Normal [facility] Interpretation and review of laboratory results Abnormal [facility] T3on 01-24-2025 T3 [Mass/Vol] 114 ng/dL 79 - 165 ng/dL [facility] T3 SerPl-mCncon 01-24-2025 T3 [Mass/Vol] 114 ng/dL Normal 79-165 [facility] Comment on above: Order Comment: Speci men Type: BLOOD SPECIMENOrdering Facility: [facility] Address: [address] [place] [address] Performed By: #### 2 4323-8, 3053-6, 3024-7, LIPNF ####[facility] LABCLIA [id number] [place] [id number] [place] T4 FREE/FREE THYROXINEon 07- 15-2025 Free T4 [Mass/Vol] 1.2 ng/dL 0.9 - 1.7 ng/dL [facility] T4 Free SerPl-mCncon 025 Free T4 [Mass/Vol] 1.2 ng/dL Normal 0.9-1.7 [facility] Comment on above: Order Comment: Speci men Type: BLOOD SPECIMENOrdering Facility: [facility] Address: [address] [place] [address] Performed By: #### 2 4323-8, 3053-6, 3024-7, LIPNF ####[facility] LABCLIA [id number] [place] [address] [place] THYROID STIMULATING HORMONEo n 01-24-2025 TSH Qn 2.39 m[IU]/L [facility] Comment on above: If the patient is pr egnant, TSH reference range varies by gestational period: First Trimester (weeks 9-12): 0.180-2.990 mIU/L Second Trimester: 0.110-3.980 mIU/L Third Trimester: 0.480-4.710 mIU/L Victor Manuel Mohan et al. A Practical Approach for the Verifications and Determination of Site- and Trimester-Specific Reference Intervals for Thyroid Function tests in . Thyroid, 2019:29:3:412-420. Jose Polo, et al. 2017 Guidelines of the [place] Thyroid [employer] for the Diagnosis and Management of Thyroid Disease during and the . Thyroid, 2017:27:3:315-389. TSH SerPl-aCncon 01-24-2025 TSH Qn 2.390 m[IU]/L Normal 0.270-4.200 [facility] Comment on above: Order Comment: Speci men Type: BLOOD SPECIMENOrdering Facility: [facility] Address: [address] [place] [address] Result Comment: If t he patient is , TSH reference range varies by gestational period: First Trimester (weeks 9-12): 0.180-2.990 mIU/L Second Trimester: 0.110-3.980 mIU/L Third Trimester: 0.480-4.710 mIU/L Victor Manuel Mohan et al. A Practical Approach for the Verifications and Determination of Site- and Trimester-Specific Reference Intervals for Thyroid Function tests in . Thyroid, 2019:29:3:412-420. Jose E, et al. 2017 Guidelines of the [place] Thyroid [employer] for the Diagnosis and Management of Thyroid Disease during and the . Thyroid, 2017:27:3:315-389. Performed By: #### 3 016-3 ####[facility] LABCLIA [id number] [address] [address] [place] Culture, Blood (WB)on 2024 CUB Blood cultures x2, from two different sites No growth in 5 days. Normal [facility] Comment on above: Performed By: #### M 200.1000, L501.4021 ####[facility] [address] [place], [place], [id number] Urine Cultureon 01-06-2025 [facility]RC Urine Culture Urine Culture Urine Culture Strep anginosus Elberta Count 11,000-25,000 Strep anginosus: REACTION Ampicillin Islt KIMMY <=0.25 Penicillin G Islt KIMMY <=0.06 S Cefotaxime Islt KIMMY <=0.12 S cefTRIAXone Islt KIMMY <=0.12 S Clindamycin Islt KIMMY <=0.25 S Linezolid Islt KIMMY <=2 S Vancomycin Islt KIMMY 0.5 S Normal [facility] Comment on above: Performed By: #### M 100.2200, M100.678, L400.0001 ####[facility] [address] [place], [place], [address] L499.0043on 01-03-2025 Trop T High Sen < 6 Normal <=14 [facility] Comment on above: Performed By: #### L 499.0043 ####[facility] [address] [place], [place], [id number] Lactic Acidon 01-03-2025 Lactate [Moles/Vol] 2.1 mmol/L Invalid Interpretation Code 0.0-2.0 [facility] Comment on above: Order Comment: Y Result Comment: Crit ical Result(s) Called at:0020 by: JOVANNY FRAGOSO TO PINEDA MONTEZ??Results read back by same. Performed By: #### L 503.6005 #### [facility] [address] [place], [address] 12 Lead EKGon 01-02-2025 12 Lead EKG [facility] Cardiovascular Services [address] [place] [address] 12 Lead EKG 01/02/252008 MR#: [id number] Acct: [id number] Name: BHUPENDRA HEBERT Rep #: [id number] : 1980 44 From: Shoaib Prado MD Attending Dr: Status: DEP ER Ordering Dr: Cale Dolan DO Date: 01/02/25 Location: ED Sex: F C Admitted: Test Reason : DYSRHYTHMIA Blood Pressure : */* mmHG Vent. Rate : 88 BPM Atrial Rate : 88 BPM P-R Int : 132 ms QRS Dur : 84 ms QT Int : 406 ms P-R-T Axes : 50 76 77 degrees QTcB Int : 491 ms Normal sinus rhythm Low voltage QRS Nonspecific T wave abnormality Abnormal ECG Confirmed by SHOAIB PRADO MD ([id number]), tape editor RAFAEL PEDROZA ([id number]) on 01/03/2025 11:27:45 AM Referred By: Confirmed By: SHOAIB PRADO MD 01/03/25 1127 Date Shoaib Prado MD CC: Dr. Cale Dolan DO; Dr. Hilda Holley DO Signed Normal [facility] Absolute lymphocyte countOrd ered By: Cale Dolan on 01-02-2025 Lymphocytes Auto (Unsp spec) [#/Vol] 1.50 10*3/uL 0.83-4.51 [facility] Absolute neutrophil countOrd ered By: Cale Dolan on 01-02-2025 Neutrophils (Bld) [#/Vol] 11.9 10*3/uL High 2.0-7.7 [facility] Activated partial thrombopla stin time (aPTT) in platelet poor plasma by coagulation aOrdered By: Cale Dolan on 01-02-2025 aPTT Coag (PPP) [Time] 26.8 s 24.1-36.2 [facility] Anion gap in Serum or Plasma Ordered By: Cale Dolan on 01-02-2025 Anion gap [Moles/Vol] 16 mmol/L High 5-15 [facility] Automated lymphocyte count a s percentage of total leukocytesOrdered By: Cale Dolan on 01-02-2025 Lymphocytes/100 WBC Auto (Unsp spec) 10.5 % Low 19-41 [facility] BUN/creatinine ratioOrdered By: Cale Dolan on 01-02-2025 Urea nitrogen/Creatinine [Mass ratio] 14.0 mg/mg 10-20 [facility] Basophil percentageOrdered B y: Cale Dolan on 01-02-2025 Basophils/100 WBC (Bld) 0.5 % 0-1 [facility] Bilirubin Test strip Ql (U)O rdered By: Cale Dolan on 01-02-2025 Bilirubin Ql (U) Negative Negative [facility] Bilirubin, totalOrdered By: Cale Dolan on 01-02-2025 Bilirubin [Mass/Vol] 0.42 mg/dL 0.00-1.30 [facility] Blood cultureOrdered By: Dea Dolan on 01-02-2025 Bacteria identified Cx Nom (Bld) No growth in 5 days. [facility] Bacteria identified Cx Nom (Bld) No growth in 5 days. [facility] Brain/Head without Contrasto n 01-02-2025 Brain/Head without Contrast [facility] Imaging Services [address] [place], [place] [address] Brain/Head without Contrast MR#: [id number] Acct: [id number] Name: BHUPENDRA HEBERT Rep #: [id number] : 1980 F 44 From: Diego Stoddard MD PCP: Dr. Hilda Holley, DO Status: REG ER Study: Brain/Head without Contrast Date of Exam: 12/12 10/04 Exam# [id number] Ordering Dr: Cale Dolan DO PROCEDURE: BRAIN/HEAD [...] intracranial hemorrhage, mass effect, or midline shift. Ochoa-white differentiation is maintained. The cerebellar tonsils extend to the level of the foramen magnum. CSF Spaces: Unremarkable for age Sinuses/Mastoids: Mild mucosal thickening in the maxillary sinuses. Near-complete opacification of the right sphenoid sinus there is under pneumatization of the mastoid air cells without significant effusion. Bones: Unremarkable CT/Brain/Head without Contrast IMPRESSION: 1. No acute intracranial abnormality. 2. Sphenoid and maxillary sinus disease. Reading Location: [id number] CC: Dr. Cale Dolan, DO; Dr. Hilda Holley, DO Welder Gun: Signed Normal [facility] CBC W/Diff, Automatedon - Absolute Lymph 1.50 X10 3/uL Normal 0.83-4.51 [facility] Comment on above: Performed By: #### L 503.6005, L300.3900, L300.4310, L100.0100, L500.4050 #### [facility] [address] [place], [address] Absolute Neut 11.9 X10 3/uL High 2.0-7.7 [facility] Comment on above: Performed By: #### L 503.6005, L300.3900, L300.4310, L100.0100, L500.4050 #### [facility] [address] [place], [address] Basophils/100 WBC (Bld) 0.5 % Normal 0-1 [facility] Comment on above: Performed By: #### L 503.6005, L300.3900, L300.4310, L100.0100, L500.4050 #### [facility] [address] [place], [address] Eosinophils/100 WBC (Bld) 0.1 % Normal 0-5 [facility] Comment on above: Performed By: #### L 503.6005, L300.3900, L300.4310, L100.0100, L500.4050 #### [facility] [address] [place], [address] Erythrocyte distribution width (RBC) [Ratio] 17.7 % High 11.6-14.6 [facility] Comment on above: Performed By: #### L 503.6005, L300.3900, L300.4310, L100.0100, L500.4050 #### [facility] [address] [place], [address] Hematocrit (Bld) [Volume fraction] 42.2 % Normal 37-47 [facility] Comment on above: Performed By: #### L 503.6005, L300.3900, L300.4310, L100.0100, L500.4050 #### [facility] [address] [place], [address] Hemoglobin (Bld) [Mass/Vol] 13.5 g/dL Normal 12.0-15.0 [facility] Comment on above: Performed By: #### L 503.6005, L300.3900, L300.4310, L100.0100, L500.4050 #### [facility] [address] [place], [address] IG% 1.300 High 0.0-0.9 [facility] Comment on above: Result Comment: IG% - Immature Granulocytes (promyelocytes, myelocytes and metamyelocytes) > 1% indicates that a LEFT SHIFT is Present. Performed By: #### L 503.6005, L300.3900, L300.4310, L100.0100, L500.4050 #### [facility] [address] [place], [address] Lymphocytes/100 WBC (Bld) 10.5 % Low 19-41 [facility] Comment on above: Performed By: #### L 503.6005, L300.3900, L300.4310, L100.0100, L500.4050 #### [facility] [address] [place], [address] MCH (RBC) [Entitic mass] 25.9 pg Low 27.0-32.0 [facility] Comment on above: Performed By: #### L 503.6005, L300.3900, L300.4310, L100.0100, L500.4050 #### [facility] [address] [place], [address] MCHC (RBC) [Mass/Vol] 32.0 g/dL Normal 32-36 [facility] Comment on above: Performed By: #### L 503.6005, L300.3900, L300.4310, L100.0100, L500.4050 #### [facility] [address] [place], [address] MCV (RBC) [Entitic vol] 80.8 fL Low 81-99 [facility] Comment on above: Performed By: #### L 503.6005, L300.3900, L300.4310, L100.0100, L500.4050 #### [facility] [address] [place], [address] Monocytes/100 WBC (Bld) 4.1 % Normal 0-10 [facility] Comment on above: Performed By: #### L 503.6005, L300.3900, L300.4310, L100.0100, L500.4050 #### [facility] [address] [place], [address] Neutrophils/100 WBC (Bld) 83.5 % High 47-70 [facility] Comment on above: Performed By: #### L 503.6005, L300.3900, L300.4310, L100.0100, L500.4050 #### [facility] [address] [place], [address] Nucleated RBC (Bld) [#/Vol] 0 10*3/uL Normal 0-5 [facility] Comment on above: Performed By: #### L 503.6005, L300.3900, L300.4310, L100.0100, L500.4050 #### [facility] [address] [place], [address] Platelet mean volume (Bld) [Entitic vol] 10.1 fL Normal 6.2-12.0 [facility] Comment on above: Performed By: #### L 503.6005, L300.3900, L300.4310, L100.0100, L500.4050 #### [facility] [address] [place], [address] Platelets (Bld) [#/Vol] 343 10*3/uL Normal 150-450 [facility] Comment on above: Performed By: #### L 503.6005, L300.3900, L300.4310, L100.0100, L500.4050 #### [facility] [address] [place], [address] RBC (Bld) [#/Vol] 5.22 10*6/uL Normal 4.2-5.4 [facility] Comment on above: Performed By: #### L 503.6005, L300.3900, L300.4310, L100.0100, L500.4050 #### [facility] [address] [place], [address] RDW SD 50.3 fl High 35.1-43.9 [facility] Comment on above: Performed By: #### L 503.6005, L300.3900, L300.4310, L100.0100, L500.4050 #### [facility] [address] [place], [address] (806) WBC (Bld) [#/Vol] 14.2 10*3/uL High 4.4-11.0 [facility] Comment on above: Performed By: #### L 503.6005, L300.3900, L300.4310, L100.0100, L500.4050 #### [facility] [address] [place], [place], [id number] (949) Carbon dioxide, total [Moles /volume] in Central venous bloodOrdered By: Cale Dolan on 01-02-2025 CO2 [Moles/Vol] 18.6 mmol/L Low 21.0-32.0 [facility] Chest PA and Lateralon 01-02 Chest PA and Lateral [facility] Imaging Services [address] [place], [place] [address] Chest PA and Lateral MR#: [id number] Acct: [id number] Name: BHUPENDRA HEBERT Rep #: [id number] : 1980 F 44 From: Diego Stoddard MD PCP: Dr. Hilda Holley, DO Status: REG ER Study: Chest PA and Lateral Date of Exam: 01/02/25 Exam# [id number] Ordering Dr: Cale Dolan DO PROCEDURE: CHEST [...] be seen with pulmonary edema. Reading Location: [id number] CC: Dr. Cale Dolan, DO; Dr. Hilda Holley DO Welder Gun: Signed Normal [facility] Chloride assayOrdered By: Mahesh Dolan on 01-02-2025 Chloride [Moles/Vol] 101 mmol/L 98-108 [facility] Comprehensive Metabolic Prof ilon 01-02-2025 Albumin [Mass/Vol] 3.8 g/dL Normal 3.5-5.0 [facility] Comment on above: Performed By: #### L 503.6005, L300.3900, L300.4310, L100.0100, L500.4050 ####[facility] [address] [place], [address] Albumin/Globulin [Mass ratio] 1.1 {ratio} Normal 0.9-2.4 [facility] Comment on above: Performed By: #### L 503.6005, L300.3900, L300.4310, L100.0100, L500.4050 ####[facility] [address] [place], [address] ALK PHOS 99 U/L Normal 35-104 [facility] Comment on above: Performed By: #### L 503.6005, L300.3900, L300.4310, L100.0100, L500.4050 ####[facility] [address] [place], [address] ALT [Catalytic activity/Vol] 32 U/L Normal <=34 [facility] Comment on above: Result Comment: Hemo lysis present, Results??could be affected. ?? Performed By: #### L 503.6005, L300.3900, L300.4310, L100.0100, L500.4050 ####[facility] [address] [place], [address] AST [Catalytic activity/Vol] 51 U/L High <=31 [facility] Comment on above: Result Comment: Hemo lysis present, Results??could be affected. ?? Performed By: #### L 503.6005, L300.3900, L300.4310, L100.0100, L500.4050 ####[facility] [address] [place], [address] Bilirubin [Mass/Vol] 0.42 mg/dL Normal 0.00-1.30 [facility] Comment on above: Performed By: #### L 503.6005, L300.3900, L300.4310, L100.0100, L500.4050 ####[facility] [address] [place], [address] BUN/CRE 14.0 RATIO Normal 10-20 [facility] Comment on above: Performed By: #### L 503.6005, L300.3900, L300.4310, L100.0100, L500.4050 ####[facility] [address] [place], [address] Calcium [Mass/Vol] 8.8 mg/dL Normal 7.6-11.0 [facility] Comment on above: Performed By: #### L 503.6005, L300.3900, L300.4310, L100.0100, L500.4050 ####[facility] [address] [place], [address] Chloride [Moles/Vol] 101 mmol/L Normal 98-108 [facility] Comment on above: Performed By: #### L 503.6005, L300.3900, L300.4310, L100.0100, L500.4050 ####[facility] [address] [place], [address] CO2 [Moles/Vol] 18.6 mmol/L Low 21.0-32.0 [facility] Comment on above: Performed By: #### L 503.6005, L300.3900, L300.4310, L100.0100, L500.4050 ####[facility] [address] [place], [address] Creatinine [Mass/Vol] 0.83 mg/dL Normal 0.70-1.20 [facility] Comment on above: Performed By: #### L 503.6005, L300.3900, L300.4310, L100.0100, L500.4050 ####[facility] [address] [place], [address] GAP 16 High 5-15 [facility] Comment on above: Performed By: #### L 503.6005, L300.3900, L300.4310, L100.0100, L500.4050 ####[facility] [address] [place], [address] GFR/1.73 sq M.predicted among non-blacks MDRD (S/P/Bld) [Vol rate/Area] 90 mL/min/{1.73_m2} Normal >60 [facility] Comment on above: Result Comment: mL/m in/1.73m2 CKD-EPI Creatinine Equation (2020) Performed By: #### L 503.6005, L300.3900, L300.4310, L100.0100, L500.4050 ####[facility] [address] [place], [address] Globulin (S) [Mass/Vol] 3.4 g/dL Normal 2.2-4.2 [facility] Comment on above: Performed By: #### L 503.6005, L300.3900, L300.4310, L100.0100, L500.4050 ####[facility] [address] [place], [address] Glucose [Mass/Vol] 129 mg/dL High 70-99 [facility] Comment on above: Performed By: #### L 503.6005, L300.3900, L300.4310, L100.0100, L500.4050 ####[facility] [address] [place], [address] Potassium [Moles/Vol] 5.3 mmol/L High 3.3-5.1 [facility] Comment on above: Result Comment: Hemo lysis present, Results??could be affected. ?? Performed By: #### L 503.6005, L300.3900, L300.4310, L100.0100, L500.4050 ####[facility] [address] [place], [address] Sodium [Moles/Vol] 135 mmol/L Normal 133-145 [facility] Comment on above: Performed By: #### L 503.6005, L300.3900, L300.4310, L100.0100, L500.4050 ####[facility] [address] [place], [address] T PROT 7.3 g/dL Normal 5.9-8.4 [facility] Comment on above: Performed By: #### L 503.6005, L300.3900, L300.4310, L100.0100, L500.4050 ####[facility] [address] [place], [address] Urea nitrogen [Mass/Vol] 12 mg/dL Normal 4-19 [facility] Comment on above: Performed By: #### L 503.6005, L300.3900, L300.4310, L100.0100, L500.4050 ####[facility] [address] [place], [address] Emergency Department Summary on 01-02-2025 Emergency Department Summary [facility] Medical Records Department [address] [place] [address] Emergency Department Summary 01/02/25 MR#: [id number] Acct: [id number] Name: BHUPENDRA HEBERT Rep #: [id number] : 1980 44 From: Cale Dolan DO PCP: Dr. Hilda Holley, DO Status:REG ER Location: ED HPI History of Present Illness HPI Narrative: Patient presents with redness to her right lower leg that has been getting worse over the past week. Patient was seen at [place] emergency department for this. Patient was started [...] be more confused. Patient denies any fevers or chills. Patient denies any trauma or injury. Chief Complaint: Lower Extremity Injury Informant: patient Onset/Context/Timing Onset: Weeks (1) Context: Gradual Onset Timing: Continuous Location: Right lower leg Worsened by: Nothing Relieved by: Nothing Associated Symptoms Associated Symptoms: Negative for Parasthesia, Weakness or Loss of Funtion PFSH [facility] Medical History (Updated 01/03/25 @ 00:[address] Cale Dolan, ) Toxoplasmosis chorioretinitis COPD (chronic obstructive pulmonary disease) Asthma Home Medications ???Medication ???Instructions ???Recorded ???Last Taken ???Type albuterol sulfate 90 mcg/actuation 2 puff inhalation Q4H PRN PRN Unknown Rx aerosol inhaler (Ventolin HFA) Wheezing ##1 prednisone 20 mg tablet 60 mg (3 x 20 mg) PO DAILY #12 Unknown Rx TABLETS celecoxib 100 mg capsule 100 mg PO DAILY 01/02/25 Unknown H istory cetirizine 10 mg tablet 10 mg PO DAILY 01/02/25 Unknown Hi story doxycycline monohydrate 100 mg 100 mg PO BID 01/02/25 Unknown His tory capsule nystatin 100,000 unit/gram topical 1 applic topical TID 01/02/25 Un known History powder omega-3 acid ethyl esters 1 gram 1 cap PO DAILY 01/02/25 Unknown Hi story capsule pantoprazole 40 mg tablet,delayed 40 mg PO 01/02/25 Unknown History release risperidone 0.5 mg tablet 0.5 mg PO QHS 01/02/25 Unknown His tory trazodone 50 mg tablet 50 mg PO QHS 01/02/25 Unknown Hist ory venlafaxine 225 mg tablet,extended 225 mg PO DAILY 01/02/25 Unknown History release 24 hr cephalexin 500 mg capsule 500 mg PO Q6 #40 CAPSULES 01/03/25 Unknown Rx Allergy/AdvReac Type Severity Reaction Status [...] Air Room Air Positive well nourished and we (more content not included)... Normal [facility] Eosinophil percentageOrdered By: Cale Dolan on 01-02-2025 Eosinophils/100 WBC (Bld) 0.1 % 0-5 [facility] Erythrocyte distribution wid th ratioOrdered By: Cale Dolan on 01-02-2025 Erythrocyte distribution width (RBC) [Ratio] 17.7 % High 11.6-14.6 [facility] Erythrocyte distribution wid th standard deviationOrdered By: Cale Dolan on 01-02-2025 Erythrocyte distribution width (RBC) [Ratio] 50.3 fl High 35.1-43.9 [facility] Glomerular filtration rate ( GFR) estimation/1.73 sq m using serum, plasma, or whole bOrdered By: Cale Dolan on 01-02-2025 GFR/1.73 sq M.predicted among non-blacks MDRD (S/P/Bld) [Vol rate/Area] 90 mL/min/{1.73_m2} >60 [facility] Comment on above: mL/min/1.73m2 CKD-EP I Creatinine Equation (2020) Hematocrit Auto (Bld) [Volum e fraction]Ordered By: Cale Dolan on 01-02-2025 Hematocrit (Bld) [Volume fraction] 42.2 % 37-47 [facility] Hemoglobin measurementOrdere d By: Cale Dolan on 01-02-2025 Hemoglobin (Bld) [Mass/Vol] 13.5 g/dL 12.0-15.0 [facility] Immature granulocytes/100 WB C Auto (Bld)Ordered By: Cale Dolan on 01-02-2025 Immature granulocytes/100 WBC (Bld) 1.300 % High 0.0-0.9 [facility] Comment on above: IG% - Immature Granu locytes (promyelocytes, myelocytes and metamyelocytes) > 1% indicates that a LEFT SHIFT is Present. Influenza virus A and B and SARS-CoV-2 (COVID-19) and Respiratory syncytial virus RNAOrdered By: Cale Dolan on 01-02-2025 SARS-CoV-2 (COVID-19) RNA BILLY+probe Ql (Unsp spec) [facility] International normalized rat io (INR) calculationOrdered By: Cale Dolan on 01-02-2025 INR Coag (Bld) [Relative time] 1.0 {INR} [facility] [facility] Ket[facility] Test strip Ql (U)Ord ered By: Cale Dolan on 01-02-2025 Ketones Ql (U) Negative Negative [facility] L499.0042on 01-02-2025 Trop T High Sen < 6 Normal <=14 [facility] Comment on above: Performed By: #### L 499.0042 ####[facility] [address] [place], [address] L501.4021on 01-02-2025 Trop T High Sen < 6 Normal <=14 [facility] Comment on above: Result Comment: Hemo lysis present, Results??could be affected. ?? Performed By: #### M 200.1000, L501.4021 ####[facility] [address] [place], [address] L503.7505on 01-02-2025 Natriuretic peptide B (Bld) [Mass/Vol] 163 pg/mL Normal <=450 [facility] Comment on above: Result Comment: Hear t Failure Unlikely: < 300 pg/mL Heart Failure Likely < 50 Years: > 450 pg/mL 50-75 Years: > 900 pg/mL >75 Years: > 1800 pg/mL Performed By: #### L 503.7505 ####[facility] [address] [place], [address] Laboratory - Chemistry and C hemistry - challengeOrdered By: Cale Dolan on 01-02-2025 AST [Catalytic activity/Vol] 51 U/L High <32 [facility] Comment on above: Hemolysis present, R esults could be affected. Lactic Acidon 01-02-2025 Lactate [Moles/Vol] 2.6 mmol/L Invalid Interpretation Code 0.0-2.0 [facility] Comment on above: Order Comment: Y Result Comment: Crit ical Result(s) Called at: by:??Results read back by same. Critical Result(s) Called at: by:??[id number] to Nohemi Blank RN by bernice. Results read back by same. AMENDED REPORT 01/02/252122 LACTIC ACID previously reported as: 2.6 *H mmol/L Critical Result(s) Called at: by:??Results read back by same. Performed By: #### L 503.6005, L300.3900, L300.4310, L100.0100, L500.4050 #### [facility] [address] [facility] [place], [address] Lactic acid measurementOrder ed By: Cale Dolan on 01-02-2025 Lactate [Moles/Vol] 2.1 mmol/L Critically high 0.0-2.0 [facility] Comment on above: Critical Result(s) C alled at:0020 by: JOVANNY FRAGOSO TO PINEDA MONTEZ Results read back by same. M100.678on 01-02-2025 M100.678 Pending SARS-CoV-2 (COVID 19) Negative INFLUENZA A Negative INFLUENZA B Negative RSV PCR Negative Normal [facility] Comment on above: Performed By: #### M 100.2200, M100.678, L400.0001 ####[facility] [address] [place], [address] MCV (mean corpuscular volume ) determinationOrdered By: Cale Dolan on 01-02-2025 MCV (RBC) [Entitic vol] 80.8 fL Low 81-99 [facility] Mean corpuscular hemoglobin (MCH) determinationOrdered By: Cale Dolan on 01-02-2025 MCH (RBC) [Entitic mass] 25.9 pg Low 27.0-32.0 [facility] Mean corpuscular hemoglobin concentration (MCHC) determinationOrdered By: Cale Dolan on 01-02-2025 MCHC (RBC) [Mass/Vol] 32.0 g/dL 32-36 [facility] Mean platelet volume determi nationOrdered By: Cale Dolan on 01-02-2025 Platelet mean volume (Bld) [Entitic vol] 10.1 fL 6.2-12.0 [facility] Microscopic analysis of urin e for red blood cells (RBC)Ordered By: Cale Dolan on 01-02-2025 Microscopic analysis of urine for red blood cells (RBC) 0 SEEN /hpf 0-5 [facility] Monocyte percentageOrdered B y: Cale Dolan on 01-02-2025 Monocytes/100 WBC (Bld) 4.1 % 0-10 [facility] Mucus LM Ql (Urine sed)Order ed By: Cale Dolan on 01-02-2025 Mucus Ql (Urine sed) 0 SEEN /hpf [facility] Natriuretic peptide.B prohor linsey N-Terminal [Mass/volume] in Serum or PlasmaOrdered By: Cale Dolan on 01-02-2025 Natriuretic peptide.B prohormone N-Terminal [Mass/Vol] 163 pg/mL <450 [facility] Comment on above: Heart Failure Unlike ly: < 300 pg/mLHeart Failure Likely< 50 Years: > 450 pg/mL50-75 Years: > 900 pg/mL>75 Years: > 1800 pg/mL Neutrophil percentageOrdered By: Cale Dolan on 01-02-2025 Neutrophils/100 WBC (Bld) 83.5 % High 47-70 [facility] Nitrite Test strip Ql (U)Ord ered By: Cale Dolan on 01-02-2025 Nitrite Ql (U) Negative Negative [facility] Nucleated red blood cell per centageOrdered By: Cale Dolan on 01-02-2025 Nucleated RBC/100 WBC (Bld) [Ratio] 0 % 0-5 [facility] Partial Thromboplast Timeon 01-02-2025 aPTT Coag (Bld) [Time] 26.8 s Normal 24.1-36.2 [facility] Comment on above: Performed By: #### L 503.6005, L300.3900, L300.4310, L100.0100, L500.4050 #### [facility] [address] [place], [place], [address] Platelet countOrdered By: Mahesh Dolan on 01-02-2025 Platelets (Bld) [#/Vol] 343 10*3/uL 150-450 [facility] Potassium measurement (mass/ volume)Ordered By: Cale Dolan on 01-02-2025 Potassium (Unsp spec) [Mass/Vol] 5.3 mmol/L High 3.3-5.1 [facility] Comment on above: Hemolysis present, R esults could be affected. Protein Test strip Ql (U)Ord ered By: Cale Dolan on 01-02-2025 Protein Ql (U) 30 mg/dl High Negative [facility] Prothrombin Time w/INRon INR Coag (PPP) [Relative time] 1.0 {INR} Normal [facility] Comment on above: Performed By: #### L 503.6005, L300.3900, L300.4310, L100.0100, L500.4050 #### [facility] [address] [place], [address] PT Coag (PPP) [Time] 13.0 s Normal 11.7-14.9 [facility] Comment on above: Performed By: #### L 503.6005, L300.3900, L300.4310, L100.0100, L500.4050 #### [facility] [address] [place], [address] Prothrombin timeOrdered By: Cale Dolan on 01-02-2025 PT Coag (PPP) [Time] 13.0 s 11.7-14.9 [facility] RBC Auto (Bld) [#/Vol]Ordere d By: Cale Dolan on 01-02-2025 RBC (Bld) [#/Vol] 5.22 10*6/uL 4.2-5.4 [facility] Serum creatinine measurement (mass/volume)Ordered By: Cale Dolan on 01-02-2025 Creatinine [Mass/Vol] 0.83 mg/dL 0.70-1.20 [facility] Serum globulin measurementOr dered By: Cale Dolan on 01-02-2025 Globulin (S) [Mass/Vol] 3.4 g/dL 2.2-4.2 [facility] Serum glucose measurement (m ass/volume)Ordered By: Cale Dolan on 01-02-2025 Glucose [Mass/Vol] 129 mg/dL High 70-99 [facility] Serum or plasma alanine coates otransferase (ALT) measurementOrdered By: Cale Dolan on 01-02-2025 ALT [Catalytic activity/Vol] 32 U/L <35 [facility] Comment on above: Hemolysis present, R esults could be affected. Serum or plasma albumin nan urement (mass/volume)Ordered By: Cale Dolan on 01-02-2025 Albumin [Mass/Vol] 3.8 g/dL 3.5-5.0 [facility] Serum or plasma albumin/glob ulin mass ratioOrdered By: Cale Dolan on 01-02-2025 Albumin/Globulin [Mass ratio] 1.1 {ratio} 0.9-2.4 [facility] Serum or plasma alkaline sena sphatase measurementOrdered By: Cale Dolan on 01-02-2025 ALP [Catalytic activity/Vol] 99 U/L 35-104 [facility] Serum or plasma calcium nan urement (mass/volume)Ordered By: Cale Dolan on 01-02-2025 Calcium [Mass/Vol] 8.8 mg/dL 7.6-11.0 [facility] Serum or plasma urea nitroge n measurement (mass/volume)Ordered By: aCle Dolan on 01-02-2025 Urea nitrogen [Mass/Vol] 12 mg/dL 4-19 [facility] Sodium levelOrdered By: Cale Dolan on 01-02-2025 Sodium [Moles/Vol] 135 mmol/L 133-145 [facility] Squamous epithelial cells de tection in urine sediment by light microscopyOrdered By: Cale Dolan on 01-02-2025 Epithelial cells.squamous LM Ql (Urine sed) 10-25 SEEN /hpf 5-10 [facility] Total proteinOrdered By: Dea Dolan on 01-02-2025 Protein [Mass/Vol] 7.3 g/dL 5.9-8.4 [facility] Troponin T.cardiac [Mass/vol ume] in Serum or Plasma by High sensitivity methodOrdered By: Cale Dolan on 01-02-2025 Troponin T.cardiac High sensitivity method [Mass/Vol] < 6 ng/L <14 [facility] Troponin T.cardiac High sensitivity method [Mass/Vol] < 6 ng/L <14 [facility] Troponin T.cardiac High sensitivity method [Mass/Vol] < 6 ng/L <14 [facility] Comment on above: Hemolysis present, R esults could be affected. Urinalysis, Completeon 01-02 BACTERIA RARE Normal None Seen [facility] Comment on above: Order Comment: PAOLO CTOR TO SPECIFY Performed By: #### M 100.2200, M100.678, L400.0001 ####[facility] [address] [place], [address] EPI,SQUAMOUS 10-25 SEEN Normal 5-10 [facility] Comment on above: Order Comment: PAOLO CTOR TO SPECIFY Performed By: #### M 100.2200, M100.678, L400.0001 ####[facility] [address] [place], [address] WBC 0-5 SEEN Normal 0-5 [facility] Comment on above: Order Comment: PAOLO CTOR TO SPECIFY Performed By: #### M 100.2200, M100.678, L400.0001 ####[facility] [address] [place], [address] BILIRUBIN URINE Negative Normal Negative [facility] Comment on above: Order Comment: PAOLO CTOR TO SPECIFY Performed By: #### M 100.2200, M100.678, L400.0001 ####[facility] [address] [place], [address] Clarity (U) Clear Normal Clear [facility] Comment on above: Order Comment: COLLE CTOR TO SPECIFY Performed By: #### M 100.2200, M100.678, L400.0001 ####[facility] [address] [place], [address] Color (U) Straw Normal Yellow [facility] Comment on above: Order Comment: COLLE CTOR TO SPECIFY Performed By: #### M 100.2200, M100.678, L400.0001 ####[facility] [address] [place], [address] GLUCOSE, UR Normal Normal Normal [facility] Comment on above: Order Comment: [facility] CTOR TO SPECIFY Performed By: #### M 100.2200, M100.678, L400.0001 ####[facility] [address] [place], [address] KETONE UR Negative Normal Negative [facility] Comment on above: Order Comment: [facility] CTOR TO SPECIFY Performed By: #### M 100.2200, M100.678, L400.0001 ####[facility] [address] [place], [address] LEUK ESTERASE Negative Normal Negative [facility] Comment on above: Order Comment: COLLE CTOR TO SPECIFY Performed By: #### M 100.2200, M100.678, L400.0001 ####[facility] [address] [place], [address] Nitrite Ql (U) Negative Normal Negative [facility] Comment on above: Order Comment: [facility] CTOR TO SPECIFY Performed By: #### M 100.2200, M100.678, L400.0001 ####[facility] [address] [place], [address] OCCULT BLOOD-UR Negative Normal Negative [facility] Comment on above: Order Comment: COLLE CTOR TO SPECIFY Performed By: #### M 100.2200, M100.678, L400.0001 ####[facility] [address] [place], [address] pH UR 6.0 Normal 5.0 - 8.0 [facility] Comment on above: Order Comment: PAOLO CTOR TO SPECIFY Performed By: #### M 100.2200, M100.678, L400.0001 ####[facility] [address] [place], [address] PROT DIPSTX 30 mg/dl Abnormal Negative [facility] Comment on above: Order Comment: PAOLO CTOR TO SPECIFY Performed By: #### M 100.2200, M100.678, L400.0001 ####[facility] [address] [place], [address] SP.GR. DIPSTX 1.015 Normal 1.002-1.030 [facility] Comment on above: Order Comment: PAOLO CTOR TO SPECIFY Performed By: #### M 100.2200, M100.678, L400.0001 ####[facility] [address] [place], [address] UROBILI Normal Normal Normal [facility] Comment on above: Order Comment: PAOLO CTOR TO SPECIFY Performed By: #### M 100.2200, M100.678, L400.0001 ####[facility] [address] [place], [address] Mucus Ql (Urine sed) 0 SEEN Normal [facility] Comment on above: Order Comment: PAOLO CTOR TO SPECIFY Performed By: #### M 100.2200, M100.678, L400.0001 ####[facility] [address] [place], [address] RBC 0 SEEN Normal 0-5 [facility] Comment on above: Order Comment: PAOLO CTOR TO SPECIFY Performed By: #### M 100.2200, M100.678, L400.0001 ####[facility] [address] [place], [address] Urine clarityOrdered By: Dea Dolan on 01-02-2025 Clarity (U) Clear Clear [facility] Urine color determinationOrd ered By: Cale Dolan on 01-02-2025 Color (U) Straw Yellow [facility] Urine cultureOrdered By: Dea Dolan on 01-02-2025 Bacteria identified Cx Nom (U) Strep anginosus Abnormal [facility] Urine glucose detectionOrder ed By: Cale Dolan on 01-02-2025 Glucose Ql (U) Normal mg/dl Normal [facility] Urine leukocyte esterase det ection by dipstickOrdered By: Cale Dolan on 01-02-2025 Leukocyte esterase Test strip Ql (U) Negative Negative [facility] Urine pHOrdered By: Cale escoto on 01-02-2025 pH (U) 6.0 [pH] 5.0 - 8.0 [facility] Urine sediment bacteria coun t by microscopy (number/high power field)Ordered By: Cale Dolan on 01-02-2025 Bacteria LM.HPF (Urine sed) [#/Area] RARE /hpf None Seen [facility] Urine specific gravity measu rementOrdered By: Cale Dolan on 01-02-2025 Specific gravity (U) [Rel density] 1.015 1.002-1.030 [facility] Urine urobilinogen measureme ntOrdered By: Cale Dolan on 01-02-2025 Urobilinogen Ql (U) Normal mg/dl Normal [facility] White blood cell (WBC) count Ordered By: Cale Dolan on 01-02-2025 WBC (Bld) [#/Vol] 14.2 10*3/uL High 4.4-11.0 [facility] White blood cell countOrdere d By: Cale Dolan on 01-02-2025 White blood cell count 0-5 SEEN /hpf 0-5 [facility] ALLIED HEALTHon 12-29-2024 ALLIED HEALTH HNO ID: [id number] Author: ANIKA DURAN RT(R) Service: Radiology Author Type: Career Development Associate Type: Allied Health Filed: 12/29/2024 21:13 Note Text: Radiology Service Progress Note DATE OF SERVICE: December 29, 2024 TIME: 9:13 PM PATIENT IDENTITY VERIFICATION COMPLETED USING TWO [...] Patient: Screened in ED PATIENT GENDER DATA: Assigned female at . status: : No status: NO. PATIENT RELEVANT IMPLANT DATA REVIEWED: Yes PATIENT PRESENTS WITH AN IMPLANTABLE OR ATTACHED HUSKER OPERATOR: No ALLERGIES: Reviewed and unchanged CONTRAST ALLERGY: NO. EXAM: CT -CONTRAST INDUCED NEPHROPATHY RISK FACTORS: Not applicable CREATININE: Creatinine Date Value Ref Range Status 12/29/2024 0.63 0.58 - 0.96 mg/dL Final 09/26/2024 0.53 (L) 0.58 - 0.96 mg/dL Final 12/29/2023 0.60 0.58 - 0.96 mg/dL Final Estimated Glomerular Filtration Rate Date Value Ref Range Status 12/29/2024 114 >=60 mL/min/1.73m? Final Comment: Estimated Glomerular Filtration Rate (eGFR) is calculated using the 2020 CKD-EPI creatinine equation. This equation utilizes serum creatinine, sex, and age as parameters. The creatinine assay has traceable calibration to isotope dilution-mass spectrometry. Refer to KDIGO guidelines for clinical interpretation. In patients with unstable renal function, e.g. those with acute kidney injury, the eGFR may not accurately reflect actual GFR. P.O.C.T. RESULTS: POC done: Yes, See Lab Tab December 29, 2024 TREATMENT: N/A PERIPHERAL IV DATA: Inpatient - refer to LDA documentation RADIOLOGY DEPARTMENT: CT; Exam(s) Completed: Abdomen/Pelvis SIGNATURE: RT Isaac(R) PATIENT NAME: Bhupendra Hebert DATE: December 29, 2024 TIME: 9:13 PM [facility] ALLIED HEALTH HNO ID: [id number] Author: WALTER ERICKSON RT(R) Service: Radiology Author Type: Career Development Associate Type: Allied Health Filed: 12/29/2024 18:16 Note Text: Radiology Service Progress Note PATIENT NAME: Bhupendra Hebert DATE OF SERVICE: December 29, 2024 TIME: 6:16 PM PATIENT IDENTITY VERIFICATION COMPLETED USING TWO (2) IDENTIFIERS: Name and Date of confirmed by patient verbally. FALL SCREENING: Has the patient had 2 falls in the last year or 1 fall with injury or currently using an Ambulatory Assistive Device (Walker, Cane, Wheelchair, Crutches, etc.)? Emergency Room Patient: Screened in ED PATIENT GENDER DATA: Assigned female at . status: : No status: NO. PATIENT RELEVANT IMPLANT DATA REVIEWED: Not Applicable PATIENT PRESENTS WITH AN IMPLANTABLE OR ATTACHED HUSKER OPERATOR: No RADIOLOGY DEPARTMENT: General X-ray: Exam(s) Completed: Chest X-Ray PERIPHERAL IV DATA: Not applicable SIGNED BY: Walter Erickson RT(R) December 29, 2024 6:16 PM Normal [facility] B-HCG SerPl-aCncon 5 HCG.beta subunit Qn m[IU]/mL Normal <5.0 [facility] Comment on above: Order Comment: Speci men Type: BLOOD SPECIMENOrdering Facility: [facility] Address: [address] [place] [address] Result Comment: Nega tive Performed By: #### 2 1198-7 ####[facility] [place] LABCLIA [id number] [address] OF [facility] Bacteria Bld Culton 12-30-19 25 Bacteria identified Cx Nom (Bld) CULTURE, BLOOD: No growth 5 days Normal [facility] Comment on above: Performed By: #### 6 00-7 ####[facility] LABORATORYCLIA [id number] [address] OF [facility] Bacteria identified Cx Nom (Bld) CULTURE, BLOOD: No growth 5 days Normal [facility] Comment on above: Performed By: #### 6 00-7 ####[facility] LABORATORYCLIA [id number] [address] OF [place] CBC W Auto Differential pane l (Bld)on 12-29-2024 Basophils (Bld) [#/Vol] 0.03 10*3/uL Normal <0.11 [facility] Comment on above: Order Comment: Speci men Type: BLOOD SPECIMENOrdering Facility: [facility] Address: [address] [place] [address] Performed By: #### 5 7021-8 ####[facility] [place] LABCLIA [id number] [place] [address] [place] Basophils/100 WBC (Bld) 0.3 % Normal [facility] Comment on above: Order Comment: Speci men Type: BLOOD SPECIMENOrdering Facility: [facility] Address: [address] [place] [address] Performed By: #### 5 7021-8 ####[facility] [place] LABCLIA [id number] [facility] [place] [address] [facility] Differential cell count method Nom (Bld) Auto Normal [facility] Comment on above: Order Comment: Speci men Type: BLOOD SPECIMENOrdering Facility: [facility] Address: [address] [place] [address] Performed By: #### 5 7021-8 ####[facility] [place] LABCLIA [id number] [facility] [place] [address] [place] [facility] Eosinophils (Bld) [#/Vol] 0.24 10*3/uL Normal <0.46 [facility] Comment on above: Order Comment: Speci men Type: BLOOD SPECIMENOrdering Facility: [facility] Address: [address] [place] [address] Performed By: #### 5 7021-8 ####[facility] [place] LABCLIA [id number] [facility] [address] [place] [facility] Eosinophils/100 WBC (Bld) 2.4 % Normal [facility] Comment on above: Order Comment: Speci men Type: BLOOD SPECIMENOrdering Facility: [facility] Address: [address] [place] [address] Performed By: #### 5 7021-8 ####[facility] LABCLIA [id number] [facility] [place] [address] [facility] [place] Erythrocyte distribution width (RBC) [Ratio] 18.0 % High 11.5-15.0 [facility] Comment on above: Order Comment: Speci men Type: BLOOD SPECIMENOrdering Facility: [facility] Address: [address] [place] [address] Performed By: #### 5 7021-8 ####[facility] [place] LABCLIA [id number] [place] [address] [place] Hematocrit (Bld) [Volume fraction] 41.5 % Normal 36.0-46.0 [facility] Comment on above: Order Comment: Speci men Type: BLOOD SPECIMENOrdering Facility: [facility] Address: [address] [place] [address] Performed By: #### 5 7021-8 ####[facility] LABCLIA [id number] [place] [address] [place] Hemoglobin (Bld) [Mass/Vol] 13.2 g/dL Normal 11.5-15.5 [facility] Comment on above: Order Comment: Speci men Type: BLOOD SPECIMENOrdering Facility: [facility] Address: [address] [place] [address] Performed By: #### 5 7021-8 ####[facility] LABCLIA [id number] [place] [address] [place] Immature granulocytes (Bld) [#/Vol] 0.08 10*3/uL Normal <0.10 [facility] Comment on above: Order Comment: Speci men Type: BLOOD SPECIMENOrdering Facility: [facility] Address: [address] [place] [address] Performed By: #### 5 7021-8 ####[facility] [place] LABCLIA [id number] [place] [address] [place] Immature granulocytes/100 WBC (Bld) 0.8 % Normal [facility] Comment on above: Order Comment: Speci men Type: BLOOD SPECIMENOrdering Facility: [facility] Address: [address] [place] [address] Performed By: #### 5 7021-8 ####[facility] LABCLIA [id number] [place] [address] [place] Lymphocytes (Bld) [#/Vol] 1.79 10*3/uL Normal 1.00-4.00 [facility] Comment on above: Order Comment: Speci men Type: BLOOD SPECIMENOrdering Facility: [facility] Address: [address] [place] [address] Performed By: #### 5 7021-8 ####[facility] LABCLIA [id number] [place] [address] [facility] Lymphocytes/100 WBC (Bld) 17.9 % Normal [facility] Comment on above: Order Comment: Speci men Type: BLOOD SPECIMENOrdering Facility: [facility] Address: [address] [place] [address] Performed By: #### 5 7021-8 ####[facility] LABCLIA [id number] [place], [place] [id number] [place] [address] MCH (RBC) [Entitic mass] 25.7 pg Low 26.0-34.0 [facility] Comment on above: Order Comment: Speci men Type: BLOOD SPECIMENOrdering Facility: [facility] Address: [address] [place] [address] Performed By: #### 5 7021-8 ####[facility] LABCLIA [id number] [place] [address] [facility] MCHC (RBC) [Mass/Vol] 31.8 g/dL Normal 30.5-36.0 [facility] Comment on above: Order Comment: Speci men Type: BLOOD SPECIMENOrdering Facility: [facility] Address: [address] [place] [address] Performed By: #### 5 7021-8 ####[facility] LABCLIA [id number] [place] [address] [facility] [place] MCV (RBC) [Entitic vol] 80.7 fL Normal 80.0-100.0 [facility] Comment on above: Order Comment: Speci men Type: BLOOD SPECIMENOrdering Facility: [facility] Address: [address] [place] [address] Performed By: #### 5 7021-8 ####[facility] [place] LABCLIA [id number] [place] [address] [place] Monocytes (Bld) [#/Vol] 0.72 10*3/uL Normal <0.87 [facility] Comment on above: Order Comment: Speci men Type: BLOOD SPECIMENOrdering Facility: [facility] Address: [address] [place] [address] Performed By: #### 5 7021-8 ####[facility] [place] LABCLIA [id number] [place] [address] [place] Monocytes/100 WBC (Bld) 7.2 % Normal [facility] Comment on above: Order Comment: Speci men Type: BLOOD SPECIMENOrdering Facility: [facility] [facility] Address: [address] [place] [address] Performed By: #### 5 7021-8 ####[facility] LABCLIA [id number] [place] [address] [place] Neutrophils (Bld) [#/Vol] 7.14 10*3/uL Normal 1.45-7.50 [facility] Comment on above: Order Comment: Speci men Type: BLOOD SPECIMENOrdering Facility: [facility] Address: [address] [place] [address] Performed By: #### 5 7021-8 ####[facility] LABCLIA [id number] [place] [address] [place] Neutrophils/100 WBC (Bld) 71.4 % Normal [facility] Comment on above: Order Comment: Speci men Type: BLOOD SPECIMENOrdering Facility: [facility] Address: [address] [place] [address] Performed By: #### 5 7021-8 ####[facility] LABCLIA [id number] [place] [address] [place] Nucleated RBC (Bld) [#/Vol] Normal [facility] Comment on above: Order Comment: Speci men Type: BLOOD SPECIMENOrdering Facility: [facility] Address: [address] [place] [address] Performed By: #### 5 7021-8 ####[facility] [place] LABCLIA [id number] [facility] [place] [address] [place] Nucleated RBC/100 WBC (Bld) [Ratio] Normal [facility] Comment on above: Order Comment: Speci men Type: BLOOD SPECIMENOrdering Facility: [facility] Address: [address] [place] [address] Performed By: #### 5 7021-8 ####[facility] [place] LABCLIA [id number] [facility] [address] [place] Platelet mean volume (Bld) [Entitic vol] 9.5 fL Normal 9.0-12.7 [facility] Comment on above: Order Comment: Speci men Type: BLOOD SPECIMENOrdering Facility: [facility] Address: [address] [place] [address] Performed By: #### 5 7021-8 ####[facility] LABCLIA [id number] [place] [address] [place] Platelets (Bld) [#/Vol] 285 10*3/uL Normal 150-400 [facility] Comment on above: Order Comment: Speci men Type: BLOOD SPECIMENOrdering Facility: [facility] Address: [address] [place] [address] Performed By: #### 5 7021-8 ####[facility] [place] LABCLIA [id number] [place] [address] [place] RBC (Bld) [#/Vol] 5.14 10*6/uL Normal 3.90-5.20 [facility] Comment on above: Order Comment: Speci men Type: BLOOD SPECIMENOrdering Facility: [facility] Address: [address] [place] [address] Performed By: #### 5 7021-8 ####[facility] LABCLIA [id number] [place] [address] [place] WBC (Bld) [#/Vol] 10.00 10*3/uL Normal 3.70-11.00 [facility] Comment on above: Order Comment: Speci men Type: BLOOD SPECIMENOrdering Facility: [facility] Address: [address] [id number] Performed By: #### 5 7021-8 ####[facility] [place] LABCLIA [id number] [place] [address] [place] [address] ABD/PEL W IVCONon 025 CT ABD/PEL W IVCON * * *Final Report* * * DATE OF EXAM: Dec 29 2024 8:40PM [facility] 0530 - CT ABD/PEL W IVCON / PROCEDURE REASON: Abdominal abscess/infection suspected * * * * Physician Interpretation * * * * EXAMINATION: CT ABDOMEN AND PELVIS WITH IV CONTRAST CLINICAL HISTORY: Lower abdominal tenderness TECHNIQUE: CT of the abdomen and pelvis was performed using standard technique, scanning from just above the dome of the diaphragm to the symphysis pubis. MQ: CTAP_3 Contrast: IV: 100 ml of Omnipaque 350 CT Radiation dose: Integrated Dose-length product (DLP) for this visit = 1943.63 mGy*cm. CT Dose Reduction Employed: Iterative recon and mAs-kVp adjusted using patient size-age COMPARISON: 09/01/2023 RESULT: Liver: Unremarkable. Biliary: No bile duct dilation. Gallbladder is absent. Spleen: No mass. No splenomegaly. Pancreas: No mass or duct dilation. Adrenals: No mass. Kidneys: No mass, calculus or hydronephrosis. GI tract: No dilation or wall thickening. Appendix is not visualized. Lymph nodes: No abdominal or pelvic lymphadenopathy. Mesentery/Peritoneum : No ascites or mass. Retroperitoneum: No mass. Vasculature: - Abdominal aorta and iliac arteries: No aneurysm. - Celiac and SMA: Patent without stenosis. - Portal venous system (SMV, splenic vein, portal vein and branches): Patent. - Hepatic veins: Incompletely opacified, likely due to early phase of enhancement. Pelvis: Intrauterine contraceptive device is present. There is a 7.5 cm uterine fundal fibroid. No free pelvic fluid. Urinary bladder appears unremarkable. Bones/Soft Tissues: There is skin thickening with infiltration of the subcutaneous fat along the patient's pannus as may be seen with cellulitis. This area is incompletely included in the sbigq-po-lnfp. No drainable fluid collection. No bony abnormality. Lower thorax: Noncontributory Localizer images: No additional findings. IMPRESSION: 1. Skin thickening with infiltration of the subcutaneous fat along the patient's pannus as may be seen with cellulitis. This area is incompletely included in the unirz-uz-suej. No drainable fluid collection. 2. 7.5 cm uterine fundal fibroid. Welder Gun: DAVY Transcribe Date/Time: Dec 29 2024 8:56P Dictated by : MICHAEL PULDIO MD This examination was interpreted and the report reviewed and electronically signed by: MICHAEL PULIDO MD on Dec 29 2024 9:01PM EST [id number] CN Normal [facility] Comprehensive metabolic 2000 panelon 12-29-2024 Albumin [Mass/Vol] 3.8 g/dL Low 3.9-4.9 [facility] Comment on above: Order Comment: Speci men Type: BLOOD SPECIMENOrdering Facility: [facility] Address: [address] [place], [place] [address] Performed By: #### 3 3762-6, 69765-9, 3040-3, 61714-1 ####[facility] LABCLIA [id number] [place] [address] [facility] ALP [Catalytic activity/Vol] 119 U/L Normal 34-123 [facility] Comment on above: Order Comment: Speci men Type: BLOOD SPECIMENOrdering Facility: [facility] Address: [address] [place] [address] Performed By: #### 3 3762-6, 17513-6, 3040-3, 57585-1 ####[facility] LABCLIA [id number] [place] [address] [place] ALT With P-5'-P [Catalytic activity/Vol] 28 U/L Normal 7-38 [facility] Comment on above: Order Comment: Speci men Type: BLOOD SPECIMENOrdering Facility: [facility] Address: [address] [place] [address] Performed By: #### 3 3762-6, 93843-2, 3040-3, 14579-2 ####[facility] [place] LABCLIA [id number] [facility] [address] [place] Anion gap [Moles/Vol] 11 mmol/L Normal 8-15 [facility] Comment on above: Order Comment: Speci men Type: BLOOD SPECIMENOrdering Facility: [facility] Address: [address] [place] [address] Performed By: #### 3 3762-6, 40381-9, 3040-3, 39005-5 ####[facility] LABCLIA [id number] [facility] [place] [address] [place] AST With P-5'-P [Catalytic activity/Vol] 27 U/L Normal 13-35 [facility] Comment on above: Order Comment: Speci men Type: BLOOD SPECIMENOrdering Facility: [facility] Address: [address] [place] [address] Performed By: #### 3 3762-6, 65198-4, 3040-3, 46336-3 ####[facility] [place] LABCLIA [id number] [facility] [address] [place] Bilirubin [Mass/Vol] 0.3 mg/dL Normal 0.2-1.3 [facility] Comment on above: Order Comment: Speci men Type: BLOOD SPECIMENOrdering Facility: [facility] Address: [address] [place] [address] Performed By: #### 3 3762-6, 46738-5, 3040-3, 01170-1 ####[facility] [place] LABCLIA [id number] [place] [address] [place] Calcium [Mass/Vol] 9.5 mg/dL Normal 8.5-10.2 [facility] Comment on above: Order Comment: Speci men Type: BLOOD SPECIMENOrdering Facility: [facility] Address: [address] [place] [address] Performed By: #### 3 3762-6, 20399-1, 3040-3, 60589-3 ####[facility] [place] LABCLIA [id number] [place] [address] [place] Chloride [Moles/Vol] 103 mmol/L Normal 98-107 [facility] Comment on above: Order Comment: Speci men Type: BLOOD SPECIMENOrdering Facility: [facility] Address: [address] [place] [address] Performed By: #### 3 3762-6, 84069-2, 3040-3, 79151-8 ####[facility] LABCLIA [id number] [facility] [place] [address] [place] CO2 [Moles/Vol] 25 mmol/L Normal 22-30 [facility] Comment on above: Order Comment: Speci men Type: BLOOD SPECIMENOrdering Facility: [facility] Address: [address] [place] [address] Performed By: #### 3 3762-6, 63135-8, 3040-3, 86167-5 ####[facility] [place] LABCLIA [id number] [facility] [place] [address] [place] Creatinine [Mass/Vol] 0.63 mg/dL Normal 0.58-0.96 [facility] Comment on above: Order Comment: Speci men Type: BLOOD SPECIMENOrdering Facility: [facility] Address: [address] [place], [place] [address] Performed By: #### 3 3762-6, 41758-0, 3040-3, 99904-6 ####[facility] [place] LABCLIA [id number] [place] [address] [place] Creatinine and Glomerular filtration rate.predicted panel (S/P/Bld) 114 mL/min/1.73m??? Normal >=60 [facility] Comment on above: Order Comment: Narinder steven Type: BLOOD SPECIMENOrdering Facility: [facility] Address: [address] [place] [address] Result Comment: Reyna mated Glomerular Filtration Rate (eGFR) is calculated using the 2020 CKD-EPI creatinine equation. This equation utilizes serum creatinine, sex, and age as parameters. The creatinine assay has traceable calibration to isotope dilution-mass spectrometry. Refer to KDIGO guidelines for clinical interpretation. In patients with unstable renal function, e.g. those with acute kidney injury, the eGFR may not accurately reflect actual GFR. Performed By: #### 3 3762-6, 39338-5, 3040-3, 59615-5 ####[facility] LABIA [id number] [place] [address] [place] Glucose [Mass/Vol] 116 mg/dL High 74-99 [facility] Comment on above: Order Comment: Narinder steven Type: BLOOD SPECIMENOrdering Facility: [facility] Address: [address] [place] [address] Result Comment: The [place] Diabetes [employer] (ADA) provides guidance for cutoff values for fasting glucose and random glucose. The ADA defines fasting as no caloric intake for at least 8 hours. Fasting plasma glucose results between 100 to 125 mg/dL indicate increased risk for diabetes (prediabetes). Fasting plasma glucose results greater than or equal to 126 mg/dL meet the criteria for diagnosis of diabetes. In the absence of unequivocal hyperglycemia, results should be confirmed by repeat testing. In a patient with classic symptoms of hyperglycemia or hyperglycemic crisis, random plasma glucose results greater than or equal to 200 mg/dL meet the criteria for diagnosis of diabetes. Reference: Standards of Medical Care in Diabetes 2016, [place] [employer]. Diabetes Care. 2016.39(Suppl 1). Performed By: #### 3 3762-6, 45930-9, 3040-3, 51085-1 ####[facility] LABIA [id number] [place] [address] [place] Potassium [Moles/Vol] 3.7 mmol/L Normal 3.7-5.1 [facility] Comment on above: Order Comment: Speci men Type: BLOOD SPECIMENOrdering Facility: [facility] Address: [address] [place] [address] Performed By: #### 3 3762-6, 29119-2, 3040-3, 86778-2 ####[facility] [place] LABCLIA [id number] [facility] [place] [address] [place] Protein [Mass/Vol] 7.0 g/dL Normal 6.3-8.0 [facility] Comment on above: Order Comment: Speci men Type: BLOOD SPECIMENOrdering Facility: [facility] Address: [address] [place] [address] Performed By: #### 3 3762-6, 52117-7, 3040-3, 82427-5 ####[facility] [employer] [facility] LABCLIA [id number] [facility] [address] [place] Sodium [Moles/Vol] 139 mmol/L Normal 136-144 [facility] Comment on above: Order Comment: Speci men Type: BLOOD SPECIMENOrdering Facility: [facility] Address: [address] [place] [address] Performed By: #### 3 3762-6, 02744-0, 3040-3, 34111-9 ####[facility] [employer] [facility] LABCLIA [id number] [facility] [address] [place] Urea nitrogen [Mass/Vol] 8 mg/dL Normal 7-21 [facility] Comment on above: Order Comment: Speci men Type: BLOOD SPECIMENOrdering Facility: [facility] Address: [address] [place] [address] Performed By: #### 3 3762-6, 00928-9, 3040-3, 97332-0 ####[facility] [place] LABCLIA [id number] [facility] [address] [place] ECG COMPLETEon 12-29-2024 ECG COMPLETE Ventricular Rate : 83 BPM Atrial Rate : 83 BPM P-R Interval : 136 ms QRS Duration : 88 ms Q-T Interval : 354 ms QTC Calculation(Bazett) : 415 ms Calculated P [place] : 47 degrees Calculated R [place] : 78 degrees Calculated T [place] : 168 degrees NORMAL SINUS RHYTHM LOW VOLTAGE QRS NONSPECIFIC T WAVE ABNORMALITY ABNORMAL ECG NO PREVIOUS ECGS AVAILABLE Confirmed by MD HERNANDES VINAYAK ([id number]) on 12/31/2024 10:53:33 PM NAME : BHUPENDRA HEBERT PID : [id number] : 1980 Gender : Female Race : ORD : [id number] Procedure Date : Dec 29 2024 18:32:37 Edit Date : Dec 31 2024 22:53:35 Diagnosis: NORMAL SINUS RHYTHM LOW VOLTAGE QRS NONSPECIFIC T WAVE ABNORMALITY ABNORMAL ECG NO PREVIOUS ECGS AVAILABLE Confirmed by MD HERNANDES VINAYAK ([id number]) on 12/31/2024 10:53:33 PM Test Reason : Chest Pain Location : 191 : [facility] ED Overread By : MD HERNANDES VINAYAK Edited By : MD HERNANDES VINAYAK Referred By : , Acquired by : JEAN-CLAUDE WOODS [facility] ED NOTEon 12-29-2024 ED NOTE HNO ID: [id number] Author: AKILAH CHO RN Service: Emergency Medicine Author Type: Registered Nurse Type: ED Notes Filed: 12/29/2024 23:49 Note Text: 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 Dc instr and paper prescriptions given. 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 IV removed. Physician advised. [facility] ED NOTE HNO ID: [id number] Author: AKILAH CHO RN Service: Emergency Medicine Author Type: Registered Nurse Type: ED Notes Filed: 12/29/2024 22:34 Note Text: Assumed care. 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 Advised chart is up for dispo. Patient states she would prefer to go home but is willing to stay or transfer if physician states this is best for her. Comfort measures provided. [facility] ED NOTE HNO ID: [id number] Author: LEI FLETCHER, CHAIM Service: ? Author Type: Registered Nurse Type: ED Notes Filed: 12/29/2024 17:18 Note Text: Pt comes to ED with c/o RLE wound, abdominal pain/tenderness and L eye pain. Pt states she fell down her stairs 2 weeks ago and had an abrasion to the R de souza. Pt now has redness and weeping to RLE. Pt states she also scratched her L eye. Eye has increased redness around eye and excessive tearing. Pt states abdomen is tender to touch along the lower portion. She is AANDOx3, vss. Will continue to monitor. Normal [facility] ED PROV NOTEon 12-29-2024 ED PROV NOTE HNO ID: [id number] Author: LINDA STEPHENS MD Service: Emergency Medicine Author Type: Physician Type: ED Provider Notes Filed: 12/30/2024 07:10 Note Text: ED Provider Note Patient Name: Bhupendra Hebert : 1980 SERVICE DATE: 12/29/24 History Patient presents with: Wound Check Abdominal Pain Eye Complaint Patient presents the emergency department, with her partner, with multiple concerns. Patient states she has not quite felt herself for the preceding 2 weeks. Patient injured her right de souza approximately 2-week ago's with a fall, and she had some scabs which are not healing. This is not progressed to, erythema, discharge, and swelling of both of her lower extremities. Patient also notes her abdomen is starting to be more and more swollen, painful, and she is having difficulty moving around. Patient states she is short of breath, however does not feel like her asthma. Patient states she is not wheezing. Patient denies any chest pain, however she has some anxiety present. Patient notes she gets more short of breath with any type of exertion. Patient notes increased weight gain, leg swelling. No palpitations. No fevers. No sick contacts. Patient was seen in urgent care yesterday for the symptoms above, and she was sent to the ER for evaluation and presented today Abdominal Pain Pain location: Generalized Pain quality: throbbing Pain radiates to: Does not radiate Pain severity: Moderate Onset quality: Gradual Timing: Intermittent Progression: Worsening Chronicity: New Context: not diet changes, not eating, not recent illness and not suspicious food intake Relieved by: Nothing Worsened by: Nothing Ineffective treatments: None tried Associated symptoms: anorexia, constipation, cough, fatigue and shortness of breath Associated symptoms: no chest pain, no fever, no nausea and no vomiting Risk factors: obesity PAST MEDICAL HISTORY Diagnosis Date - Appendicitis - Bilateral corneal abrasions 11/19/2024 - 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 Granados - CHOLECYSTECTOMY HX FAMILY HISTORY Problem Relation Age of Onset - No Ocular Disease No Family History Social History Tobacco Use - Smoking status: Every Day Current packs/day: 1.50 Average packs/day: 1.5 packs/day for 15.0 years (22.5 ttl pk-yrs) Types: Cigarettes Passive exposure: Never - Smokeless tobacco: Never Vaping Use - Vaping status: Never Used Substance and Sexual Activity - Alcohol use: Yes Comment: rare - Drug use: Never - Sexual activity: Not on file Comment: not asked ALLERGIES No Known Allergies Review of Systems Constitutional: Positive for fatigue. Negative for fever. Respiratory: Positive for cough and shortness of breath. Cardiovascular: Negative for chest pain. Gastrointestinal: Positive for abdominal pain, anorexia and constipation. Negative for nausea and vomiting. Physical Exam Vitals [12/29/24 1703] BP Pulse Temp Temp src Resp SpO2 Weight Height 180/92 (!) 99 36.5 ?C (97.7 ?F) Temporal (!) 36 (!) 94 % (!) 152.9 kg (337 lb) -- Physical Exam Vitals and nursing note reviewed. Constitutional: General: She is not in acute distress. Appearance: Normal appearance. She is obese. She is not ill-appearing or toxic-appearing. HENT: Head: Normocephalic and atraumatic. Eyes: General: Right eye: No discharge. Left eye: No discharge. Cardiovascular: Rate and Rhythm: Normal rate and regular rhythm. Heart sounds: Normal heart sounds. No murmur heard. Comments: Distant heart sounds Pulmonary: Effort: No respiratory distress. Breath sounds: Wheezing present. Comments: Very diminished, tight lung sounds, a very faint expiratory wheeze, patient is mildly tachypneic, no respiratory distress, speaking in full and complete sentences Abdominal: General: Bowel sounds are normal. Palpations: Abdomen is soft. Tenderness: There is abdominal tenderness. There is no right CVA tenderness, left CVA tenderness, guarding or rebound. Hernia: No hernia is present. Comments: Large obese, swollen belly, with diffuse tenderness, specifically in the lower abdominal quadrants, this is diffuse, and is not focal there is no peritoneal findings however patient has very large pannus, when retracted, she is large areas of a yeast infection in the abdominal pannus creases, with odorous moist discharge, erythema, hyperpigmentation, and some slight skin excoriated, the skin appears hyperpigmented, hypertrophic, thickened, and is very tender to palpation, this covers the entire aspect of her pannus Skin: General: Skin is warm and dry. Comments: Patient has +3 pedal edema symmetric bilat (more content not included)... Normal [facility] HIGH SENSITIVITY TROPONIN T (INITIAL)on 12-29-2024 Troponin T.cardiac High sensitivity method [Mass/Vol] <6 Normal <12 [facility] Comment on above: Order Comment: Speci men Type: BLOOD SPECIMENOrdering Facility: [facility] Address: [address] [place] [address] Performed By: #### L [id number] ####[facility] LABCLIA [id number] [address] [place] HIGH SENSITIVITY TROPONIN T (SECOND)on 12-29-2024 Troponin T.cardiac High sensitivity method [Mass/Vol] <6 Normal <12 [facility] Comment on above: Order Comment: Speci men Type: BLOOD SPECIMENOrdering Facility: [facility] Address: [address] [place] [address] Performed By: #### L [id number] ####[facility] LABCLIA [id number] [place] [address] [place] Lipase SerPl-cCncon 12-30-19 25 Lipase [Catalytic activity/Vol] 35 U/L Normal 16-61 [facility] Comment on above: Order Comment: Speci men Type: BLOOD SPECIMENOrdering Facility: [facility] Address: [address] [place] [id number] Performed By: #### 3 3762-6, 60403-3, 3040-3, 76618-3 ####[facility] LABCLIA [id number] [place] [address] [facility] Magnesium SerPl-mCncon 12-29 Magnesium [Mass/Vol] 1.6 mg/dL Low 1.7-2.3 [facility] Comment on above: Order Comment: Speci men Type: BLOOD SPECIMENOrdering Facility: [facility] Address: [address] [place] [address] Performed By: #### 3 3762-6, 41105-0, 3040-3, 21277-8 ####[facility] LABCLIA [id number] [place] [address] [facility] NT-proBNP [facility] 12-29 Natriuretic peptide.B prohormone N-Terminal [Mass/Vol] 156 pg/mL High <125 [facility] Comment on above: Order Comment: Speci men Type: BLOOD SPECIMENOrdering Facility: [facility] Address: [address] [place] [address] Performed By: #### 3 3762-6, 66864-3, 3040-3, 72658-8 ####[facility] LABCLIA [id number] [place] [address] [facility] SEPSIS LACTATEon 12-29-2024 Lactate [Moles/Vol] 1.8 mmol/L Normal <=2.0 [facility] Comment on above: Order Comment: Speci men Type: BLOOD SPECIMENOrdering Facility: [facility] Address: [address] [place] [address] Performed By: #### S LACT ####[facility] LABCLIA [id number] [place] [address] [facility] Urinalysis complete panel (U )on 12-29-2024 Bacteria LM.HPF (Urine sed) [#/Area] Moderate Abnormal None Seen [facility] Comment on above: Order Comment: Speci men Type: URINE SPECIMENOrdering Facility: [facility] Address: [address] [place] [address] Performed By: #### 2 4356-8 ####[facility] LABCLIA [id number] [facility] [place] [address] [place] Bilirubin Ql (U) Negative Normal Negative [facility] Comment on above: Order Comment: Speci men Type: URINE SPECIMENOrdering Facility: [facility] Address: [address] [place] [address] Performed By: #### 2 4356-8 ####[facility] LABCLIA [id number] [place] [address] [facility] Clarity (Unsp spec) Clear Normal Clear [facility] Comment on above: Order Comment: Speci men Type: URINE SPECIMENOrdering Facility: [facility] Address: [address] [place] [address] Performed By: #### 2 4356-8 ####[facility] LABCLIA [id number] [place] [address] [place] Color (U) Yellow Normal Yellow [facility] Comment on above: Order Comment: Speci men Type: URINE SPECIMENOrdering Facility: [facility] Address: [address] [place] [address] Performed By: #### 2 4356-8 ####[facility] LABCLIA [id number] [place] [address] [facility] Epithelial cells LM.HPF (Urine sed) [#/Area] Few Normal [facility] Comment on above: Order Comment: Speci men Type: URINE SPECIMENOrdering Facility: [facility] Address: [address] [place] [address] Performed By: #### 2 4356-8 ####[facility] LABCLIA [id number] [place] [address] [facility] [place] Glucose Test strip (U) [Mass/Vol] Negative Normal Negative [facility] Comment on above: Order Comment: Speci men Type: URINE SPECIMENOrdering Facility: [facility] Address: [address] [place] [address] Performed By: #### 2 4356-8 ####[facility] LABCLIA [id number] [facility] [place] [address] [place] Hemoglobin Ql (U) Negative Normal Negative [facility] Comment on above: Order Comment: Speci men Type: URINE SPECIMENOrdering Facility: [facility] Address: [address] [place] [address] Performed By: #### 2 4356-8 ####[facility] LABCLIA [id number] [facility] [place] [address] [place] [facility] Ketones Ql (U) Negative Normal Negative [facility] Comment on above: Order Comment: Speci men Type: URINE SPECIMENOrdering Facility: [facility] Address: [address] [place] [address] Performed By: #### 2 4356-8 ####[facility] LABCLIA [id number] [facility] [place] [address] [place] Leukocyte esterase Test strip Ql (U) Negative Normal Negative [facility] Comment on above: Order Comment: Speci men Type: URINE SPECIMENOrdering Facility: [facility] Address: [address] [place] [address] Performed By: #### 2 4356-8 ####[facility] LABCLIA [id number] [facility] [place] [address] [place] Nitrite Ql (U) Negative Normal Negative [facility] Comment on above: Order Comment: Speci men Type: URINE SPECIMENOrdering Facility: [facility] Address: [address] [place] [address] Performed By: #### 2 4356-8 ####[facility] LABCLIA [id number] [facility] [place] [address] [place] pH (U) 6.0 [pH] Normal 5.0-8.0 [facility] Comment on above: Order Comment: Speci men Type: URINE SPECIMENOrdering Facility: [facility] Address: [address] [place] [address] Performed By: #### 2 4356-8 ####[facility] LABCLIA [id number] [place] [address] [facility] Protein (U) [Mass/Vol] 2+ Abnormal Negative [facility] Comment on above: Order Comment: Speci men Type: URINE SPECIMENOrdering Facility: [facility] Address: [address] [place] [address] Performed By: #### 2 4356-8 ####[facility] LABCLIA [id number] [place] [id number] [facility] RBC LM.HPF (Urine sed) [#/Area] 0-3 /HPF Normal 0-3 /HPF [facility] Comment on above: Order Comment: Speci men Type: URINE SPECIMENOrdering Facility: [facility] Address: [address] [place] [address] Performed By: #### 2 4356-8 ####[facility] LABCLIA [id number] [place] [id number] [facility] Specific gravity (U) [Rel density] 1.025 Normal 1.005-1.030 [facility] Comment on above: Order Comment: Speci men Type: URINE SPECIMENOrdering Facility: [facility] Address: [address] [place] [address] Performed By: #### 2 4356-8 ####[facility] LABCLIA [id number] [place] [address] [facility] Urobilinogen Ql (U) 0.2 EU/dL Normal 0.2-1.0 EU/dL [facility] Comment on above: Order Comment: Speci men Type: URINE SPECIMENOrdering Facility: [facility] Address: [address] [place] [address] Performed By: #### 2 4356-8 ####[facility] LABCLIA [id number] [place] [address] [place] WBC LM.HPF (Urine sed) [#/Area] 0-5 /HPF Normal 0-5 /HPF [facility] Comment on above: Order Comment: Speci men Type: URINE SPECIMENOrdering Facility: [facility] Address: [address] [place] [address] Performed By: #### 2 4356-8 ####[facility] LABCLIA [id number] [place] [address] [place] XR CHEST 1V FRONTALon 2024 XR CHEST 1V FRONTAL * * *Final Report* * * DATE OF EXAM: Dec 29 2024 6:15PM LDX 5290 - XR CHEST 1V FRONTAL / PROCEDURE REASON: Shortness of breath * * * * Physician Interpretation * * * * EXAMINATION: CHEST RADIOGRAPH (SINGLE VIEW AP OR PA) CLINICAL HISTORY: Shortness of breath, Cough MQ: XC1_5 Comparison: 09/26/2024 RESULT: Lines, tubes, and devices: None. Lungs and pleura: There is prominence and indistinctness of the pulmonary vasculature conjunction with mild septal thickening bilaterally. No large pleural effusion or pneumothorax. Cardiomediastinal silhouette: Stable. Heart size at the upper limits of normal. Other: No acute bony abnormality. IMPRESSION: Findings suggesting mild central pulmonary venous congestive changes/edema. Welder Gun: DAVY Transcribe Date/Time: Dec 29 2024 6:39P Dictated by : DEVYN STORY MD This examination was interpreted and the report reviewed and electronically signed by: DEVYN STORY MD on Dec 29 2024 6:41PM EST [id number] Normal [facility] CNOVon 12-28-2024 CNOV Office Visit (UCWSTR) BHUPENDRA HEBERT ([id number]) 1980 F Date Time Provider Department 12/28/24 6:15 PM TAE TRIPLETT UCWSTR During your visit today, we recorded the following information about you: Temperature Pulse Respiration Blood pressure 98.5 degrees 92/minute 22/minute 136/86 Tae Triplett APRN.[facility] 12/28/2024 6:57 PM Signed [facility] Subjective Bhupendra Hebert is a 44 year old female. [...] Inhale 1 Puff as instructed twice daily. ipratropium-albutero l (DUONEB) 0.5 mg-3 mg(2.5 mg base)/3 mL [...] daily. (Patient not taking: Reported on 12/28/2024) dextromethorphan-gua iFENesin (MUCINEX DM) 30-600 mg per tablet Take [...] Significant edema noted in the lower extremities, (more content not included)... Normal [facility] CNPNon 12-12-2024 CNPN Telephone (AGFAMPLE) BHUPENDRA HEBERT ([id number]) 1980 F Date Time Provider Department 12/12/24 HILDA HOLLEY During your visit today, we recorded the following information about you: Anneliese Echavarria MA 12/12/2024 12:05 PM Signed [facility] Oxygen Order placed in Dr. Holley green folder to be signed. .LANETTE Vaughan Janie, MA 12/16/2024 3:17 PM Signed Signed by Dr. Holley and faxed back to [phone]. Anneliese Echavarria MA Allergies As of Date: 12/12/2024 (No Known Allergies) Date Reviewed: 11/28/2024 Reviewed by: Elida Martino OA - Fully Assessed Reason for Visit: Forms [543] Cmt: [facility] O[facility] Order Prescriptions as of 12/16/2024 - albuterol HFA (PROVENTIL HFA, VENTOLIN HFA) [...] 225 mg by mouth once daily. - dextromethorphan-gua iFENesin (MUCINEX DM) 30-600 mg per tablet Take 1 tablet by mouth two times a day. - Cetirizine (ZYRTEC) 10 mg cap Take by mouth. - ADVAIR DISKUS 250-50 mcg/dose inhaler Inhale 1 Puff as instructed twice daily. - ipratropium-albutero l (DUONEB) 0.5 mg-3 mg(2.5 mg base)/3 mL nebu Use twice daily scheduled and every 6 hours as needed for Shortness of breath - omega-3 acid ethyl esters (LOVAZA) 1 gram capsule Take 1 g by mouth once daily. - pantoprazole DR (PROTONIX) 40 mg tablet Take 40 mg by mouth every morning. Problem List As Of Date 12/12/2024 Noted Resolved Acute appendicitis [K35.80] 12/26/2023 12/27/2023 [...] Atelectasis [J98.11] 12/27/2023 Acute appendicitis with generalized peritonitis*12/29/19 24 Right lower quadrant abdominal pain [R10.31] 12/29/2023 Chronic left shoulder pain [M25.512, G89.29] 11/07/2024 Encounter Status:Closed by ANNELIESE ECHAVARRIA on 12/12/24 [facility] CNTHERAPYon 11-30-2024 CNTHERAPY OT/PT/Speech Visit (PTWS) BHUPENDRA HEBERT ([id number]) 1980 F Date Time Provider Department 11/30/24 6:00 PM ERA SALGUERO Date Time Provider Department Center 11/30/2024 6:00 PM [id number] SALGUERO PTYARELI Tubbs Reason for Visit: PT Re-eval [891] Primary Visit Diagnosis:Chronic left shoulder pain [M25.512, G89.29] Allergies As of Date: 11/30/2024 (No Known Allergies) Date Reviewed: 11/28/2024 Reviewed by: Elida Martino OA - Fully Assessed Prescriptions as of 11/30/2024 - albuterol HFA (PROVENTIL HFA, VENTOLIN HFA) [...] 225 mg by mouth once daily. - dextromethorphan-gua iFENesin (MUCINEX DM) 30-600 mg per tablet Take 1 tablet by mouth two times a day. - Cetirizine (ZYRTEC) 10 mg cap Take by mouth. - ADVAIR DISKUS 250-50 mcg/dose inhaler Inhale 1 Puff as instructed twice daily. - ipratropium-albutero l (DUONEB) 0.5 mg-3 mg(2.5 mg base)/3 mL nebu Use twice daily scheduled and every 6 hours as needed for Shortness of breath - omega-3 acid ethyl esters (LOVAZA) 1 gram capsule Take 1 g by mouth once daily. - pantoprazole DR (PROTONIX) 40 mg tablet Take 40 mg by mouth every morning. Cigar Maker: Therapy (PT/OT/Speech/Resp) ID: [id number] 11/30/2024 6:05 PM Author: ERA SALGUERO Signed by ERA SALGUERO PT on 11/30/2024 at 6:05 PM Document text: Program_ID:[id number] Access Code: [email or web address] URL: [email or web address] Date: 11-30-2024 Prepared By: Era Salguero Program Notes Exercises - Seated Scapular Retraction - 1 x daily - 7 x weekly - 2 sets - 15 reps - Standing Shoulder Shrug Circles AROM Forward - 1 x daily - 7 x weekly - 2 sets - 15 reps - Seated Shoulder Flexion AAROM with Dowel - 1 x daily - 7 x weekly - 2 sets - 15 reps - Seated Dowel Chest Press - 1 x daily - 7 x weekly - 2 sets - 15 reps - Seated Shoulder Abduction AAROM with Dowel - 1 x daily - 7 x weekly - 2 sets - 15 reps -------- Normal [facility] THERAPY NTon 11-30-2024 THERAPY NT HNO ID: [id number] Author: ERA SALGUERO, ARIEL Service: ? Author Type: Physical Therapist Type: Therapy (PT/OT/Speech/Resp) Filed: 11/30/2024 18:05 Note Text: Program_ID:[id number] Access Code: [email or web address] URL: [email or web address] Date: 11-30-2024 Prepared By: Era Salguero Program Notes Exercises - Seated Scapular Retraction - 1 x daily - 7 x weekly - 2 sets - 15 reps - Standing Shoulder Shrug Circles AROM Forward - 1 x daily - 7 x weekly - 2 sets - 15 reps - Seated Shoulder Flexion AAROM with Dowel - 1 x daily - 7 x weekly - 2 sets - 15 reps - Seated Dowel Chest Press - 1 x daily - 7 x weekly - 2 sets - 15 reps - Seated Shoulder Abduction AAROM with Dowel - 1 x daily - 7 x weekly - 2 sets - 15 reps Normal [facility] OCT MACULA CIRRUS OU (BOTH E YES)on 11-29-2024 [facility] OCT MACULA CIRRUS OU (BOTH E YES)on 11-28-2024 Radiology [facility]ative[facility] Summary on 11-19-2024 Emergency Department Summary [facility] Medical Records Department [address] [place] [address] Emergency Department Summary 11/19/24 MR#: [id number] Acct: [id number] Name: BHUPENDRA HEBERT Rep #: [id number] : 1980 44 From: Froylan Palmer MD PCP: Dr. Hilda Holley, DO Status:REG ER Location: ED HPI History of Present [...] a child. She apparently was seen at [facility]. She was told there was nothing that could be done. She presents because of eye pain, redness, drainage, itching and foreign body sensation. She also reports light sensitivity. She denies direct or indirect trauma. She denies double vision, loss of vision. She denies rhinorrhea, congestion postnasal drainage. She denies headache. Prior similar symptoms: No Recent Illness[facility]ospital[facility]at [facility] Medical History (Updated 11/19/24 @ 22:[address] Froylan Palmer MD) Toxoplasmosis chorioretinitis COPD (chronic obstructive pulmonary disease) Asthma Home Medications ???Medication ???Instructions ???Recorded ???Last Taken ???Type albuterol sulfate 90 mcg/actuation 2 puff inhalation Q4H PRN PRN Unknown Rx aerosol inhaler (Ventolin HFA) Wheezing ##1 prednisone 20 mg tablet 60 mg (3 x 20 mg) PO DAILY #12 Unknown Rx TABLETS Allergy/AdvReac Type Severity Reaction Status Date / Time No Known Allergies Allergy Verified 11/19/24 20:36 Social History household members: friend(s) Smoking Status: Heavy Smoker (>10/day) ROS ROS ED Constitutional Constitutional ED: Denies chills, fever(s), subjective or sweats Eyes Eyes: Reports change in vision bilateral and other Details: No loss of vision or visual field cuts. ; Denies diplopia ENT ENT ED: Denies ear pain, rhinorrhea or sore throat Respiratory/Chest Respiratory/Chest: Denies cough or dyspnea Gastrointestinal Gastrointestinal: Denies nausea or vomiting Hematologic/Lymphati c Hematologic/Lymphati c: Denies easy bleeding or easy bruising EXAM [...] abrasions bilaterally. There may be a small flap superiorly 2 to 3 mm from the limbal border at 12:00. There is no foreign body seen. There is no flare cells noted. Patient was treated with ciprofloxacin drops in the emergency department and while was dispensed. Discharge Plan Triage Chief Complaint: Eye Problem ED Provider: Froylan Palmer Dx/Rx/DC Orders Clinical (more content not included)... Normal [facility] [id number] 11-07-2024 [id number] HNO ID: [id number] Author: SHAYY DUNBAR PT Service: ? Author Type: Physical Therapist Type: [id number] Filed: 11/07/2024 18:42 Note Text: [facility] Physical Therapy Plan of Care Certification Patient Name: Bhupendra Hebert : 1980 [facility] #: [id number] Date: 11/07/2024 To: Hilda Holley, DO From Therapist: Shayy Dunbar PT RE: Patient Certification/ Recertification Your review, approval and electronic signature are required in order to comply with Payor: [place] [employer]ICA[employer] / Plan: [facility] MEDICAID / Product Type: Medicaid / regulations. The identified Physical Therapy PLAN OF CARE for the patient is as follows: R29.898 Weakness of left shoulder (primary encounter diagnosis) M25.512, G89.29 Chronic left shoulder pain PLAN OF CARE: Assessment: Bhupendra Hebert presents with diagnosis AND chief complaint [...] increase T-score by a minimum 5 points. [place] in home exercise program. Patient will decrease [...] more prn) Planned Treatment Interventions: Therapeutic exercise (50825), Manual therapy (74990), Therapeutic activities (63689), Patient/Family/Careg iver Education PLAN FOR NEXT VISIT: address L shoulder ROM AND strength, B scap strength AND posture Patient demonstrates good understanding of plan of care and treatment. The above goals and plan of care were discussed and agreed upon by patient/family. For further details regarding this patient refer to the Physical Therapy electronically documented visit dated 11/07/2024. Provider Attestation I have reviewed the treatment plan for Bhupendra Hebert, CCF# [id number] for the period of 11/07/24 -- 01/06/25, established on 11/07/2024. Signature certifies the need for therapy services. Normal [facility] CNTHERAPYon 11-07-2024 CNTHERAPY OT/PT/Speech Visit (LDPT) BHUPENDRA HEBERT ([id number]) 1980 F Date Time Provider Department 11/07/24 4:30 PM SHAYY DUNBAR LDARIEL Date Time Provider Department Center 11/07/2024 4:30 PM [id number], CARLA LDPT [facility] Reason for Visit: PT Eval [747] Primary Visit Diagnosis:Weakness of left shoulder [R29.898] Other Visit Diagnosis:Chronic left shoulder pain [M25.512, G89.29] Allergies As of Date: 11/07/2024 (No Known Allergies) Date Reviewed: 09/26/2024 Reviewed by: Jourdan Wilson MD - Fully Assessed Prescriptions as of 11/07/2024 - traZODone (DESYREL) 50 mg tablet Take 50 mg by mouth daily at bedtime. - celecoxib (CELEBREX) 100 mg capsule Take 100 mg by mouth once daily. - atorvastatin (LIPITOR) 10 mg tablet Take 10 mg by mouth once daily. - venlafaxine XR (EFFEXOR XR) 225 mg tablet Take 225 mg by mouth once daily. - dextromethorphan-gua iFENesin (MUCINEX DM) 30-600 mg per tablet Take 1 tablet by mouth two times a day. - Cetirizine (ZYRTEC) 10 mg cap Take by mouth. - ADVAIR DISKUS 250-50 mcg/dose inhaler Inhale 1 Puff as instructed twice daily. - ipratropium-albutero l (DUONEB) 0.5 mg-3 mg(2.5 mg base)/3 mL nebu Use twice daily scheduled and every 6 hours as needed for Shortness of breath - omega-3 acid ethyl esters (LOVAZA) 1 gram capsule Take 1 g by mouth once daily. - pantoprazole DR (PROTONIX) 40 mg tablet Take 40 mg by mouth every morning. Normal [facility] CNPTiara 10-21-2024 ADONISN Telephone (BREANA) BHUPENDRA HEBERT ([id number]) 1980 F Date Time Provider Department 10/21/24 HILDA HOLLEY During your visit today, we recorded the following information about you: Anneliese Echavarria MA 10/21/2024 8:34 AM Signed [place] [facility] Order placed in Dr. Holley green folder to be signed. LANETTE Vaughan Janie, MA 10/21/2024 2:38 PM Signed Signed by Dr. Holley and faxed back to [phone]. Anneliese Echavarria MA Allergies As of Date: 10/21/2024 (No Known Allergies) Date Reviewed: 09/26/2024 Reviewed by: Jourdan Wilson MD - Fully Assessed Reason for Visit: Forms [913] Cmt: [facility] Order Prescriptions as of 10/21/2024 - traZODone (DESYREL) 50 mg tablet Take 50 mg by mouth daily at bedtime. - celecoxib (CELEBREX) 100 mg capsule Take 100 mg by mouth once daily. - atorvastatin (LIPITOR) 10 mg tablet Take 10 mg by mouth once daily. - venlafaxine XR (EFFEXOR XR) 225 mg tablet Take 225 mg by mouth once daily. - dextromethorphan-gua iFENesin (MUCINEX DM) 30-600 mg per tablet Take 1 tablet by mouth two times a day. - Cetirizine (ZYRTEC) 10 mg cap Take by mouth. - ADVAIR DISKUS 250-50 mcg/dose inhaler Inhale 1 Puff as instructed twice daily. - ipratropium-albutero l (DUONEB) 0.5 mg-3 mg(2.5 mg base)/3 mL nebu Use twice daily scheduled and every 6 hours as needed for Shortness of breath - omega-3 acid ethyl esters (LOVAZA) 1 gram capsule Take 1 g by mouth once daily. - pantoprazole DR (PROTONIX) 40 mg tablet Take 40 mg by mouth every morning. Problem List As Of Date 10/21/2024 Noted Resolved Acute appendicitis [K35.80] 12/26/2023 12/27/2023 [...] Atelectasis [J98.11] 12/27/2023 Acute appendicitis with generalized peritonitis*12/29/19 Right lower quadrant abdominal pain [R10.31] 12/29/2023 Encounter Status:Closed by ANNELIESE ECHAVARRIA on 10/21/24 Normal [facility] PAP TITRATION PSG (CPAP, BIP AP, ASV)on 10-09-2024 [facility] [place] [address] ; Split Study Report Name: BHUPENDRA HEBERT Date of Study: 09/11/2024 CCF#: [id number] Age: 44 (: 1980) ESS: 14 Neck Circ. (cm): 48.0 Height (cm): 152.5 Weight (kg): 142.0 BMI: 61.1 Referring Provider: HILDA HOLLEY Mailcode: TOSIN Sleep history: The patient is a 44 year old female with a history of snoring, witnessed apneas, waking up choking, gasping, or snorting, waking up with dry mouth or sore throat, multiple awakenings from sleep, nocturnal leg kicking, an urge to move the legs, and fatigue. A split-night polysomnogram study was performed due to meeting split night protocol (AHI greater than 10). The patient endorses being a habitual prone sleeper. Past medical history: Anxiety, Asthma, Class III obesity, Depression, GERD Medications: Pantoprazole, Advair diskus, Lipitor, Buspar, Celebrex, Zyrtec, Mucinex, Duoneb, Lovaza, Desyrel, Effexor, Protonix Sleep procedure: PSG w/CPAP or Bilevel PAP 4 or > addtl satish PC (61500) Procedure: The study was attended continuously by a ct technologist. The monitored parameters included: left (E1-M2) and right (E2-M1) EOG, frontal (F3-M2 & F4-M1), central (C3-M2 & C4-M1) and occipital (O1-M2 & O2-M1) EEG, mental and submental EMG, left and right anterior tibialis single ECG waveform, snoring, continuous airflow with, thermistor, nasal pressure transducer, PAP interface, chest and abdominal effort, oxygen saturation, ETCO2 and body position via video monitoring. Hypopnea definition: The peak signal excursions drop by >= 30% of pre-event baseline using nasal pressure (diagnostic study), PAP device flow (titration study) or an alternative hypopnea sensor (diagnostic study). The duration of the >= 30% drop in signal excursion is >= 10 seconds. There is a greater than or equal to 3% oxygen desaturation from pre-event baseline or the event is associated with an arousal. Respiratory Effort Related Arousal (RERA) definition: 10 seconds characterized by increasing respiratory effort or by flattening of the nasal pressure or PAP flow waveform leading to arousal from sleep when the sequence of breaths does not meet criteria for an apnea or hypopnea. Respiratory Disturbance Index (RDI) definition: RDI = (#apneas + #hypopneas + #RERAs) x 60 / TST. If AHI is 0.0, then RDI = RERA index. SLEEP ARCHITECTURE: The study started at 23:01:04 and ended at 05:13:12. Total sleep time (TST) was 273 minutes resulting in a sleep efficiency of 73.4% (total recording time (TRT) = 372 m). There were 38 awakenings with a total time awake after sleep onset of 47.5 minutes. The sleep latency was 51.5 minutes and the REM latency was N/A. The patient spent 72.5% of sleep time in the supine position. The sleep stage percentages were 18.7% stage N1, 76.6% stage N2, 4.8% stage N3 and 0.0% REM sleep. There were 102 arousals, resulting in an arousal index of 22.4. There were 119 stage shifts. BASELINE RESPIRATORY DATA: Snoring was noted. There were 44 respiratory events consisting of 2 apneas [2 obstructive (100.0%), 0 mixed (0.0%), and 0 central (0.0%)], 42 hypopneas and 0 RERAs. The patient spent 86.5% of baseline sleep time in the supine position. The apnea-hypopnea index (AHI) was 39.7, the respiratory disturbance index (RDI) was 39.7, and the central-apnea index (PERLA) was 0.0. The supine AHI was 31.3. The off-supine AHI was 93.3. The REM AHI was 0.0. The non-REM AHI was 39.7 and the arousal index was 28.9. The mean oxygen saturation was 86.0%, with a minimum oxygen saturation of 81.0%. The patient spent 89.2% (59.3 min) of sleep time with an oxygen saturation below 90% and 80.3% (53.4 min) of sleep time with an oxygen saturation at or below 88%. The wake supine end-tidal CO2 (ETCO2) value was 35 mmHg. The maximum ETCO2 was 41 mmHg. The patient spent 0.0% of sleep time with an ETCO2 above 50 mmHg and 0.0% above 55 mmHg. [place]/Period ic Breathing was not present. Supplemental oxygen was not administered. REM-Time REM AHI NREM-Time NREM AHI Total-Time Total RDI Total AHI Supine 0.0 m -- 57.5 m 31.3 57.5 m 31.3 31.3 Off-Supine 0.0 m -- 9.0 m 93.3 9.0 m 93.3 93.3 Total 0.0 m -- 66.5 m 39.7 66.5 m 39.7 39.7 POSITIVE AIRWAY PRESSURE THERAPY: During the second part of the study, CPAP titration was initiated at 01:19:00 and ended at 05:12:58. The patient did not have difficulty falling back asleep. Snoring was not eliminated at any of the PAP settings. There were 59 respiratory events consisting of 0 apneas [0 obstructive (0.0%), 0 mixed (0.0%), and 0 central (0.0%)], 59 hypopneas and 0 RERAs. The mean oxygen saturation during the study was 89.0%, with a minimum oxyg (more content not included)... SLEEP LAB [facility] HEALTHon 09-26-2024 ALLIED HEALTH HNO ID: [id number] Author: MICKEY SANDOVAL RT(R) Service: ? Author Type: Technologist Type: Allied Health Filed: 09/26/2024 17:27 Note Text: Radiology Service Progress Note PATIENT NAME: Bhupendra Hebert DATE OF SERVICE: September 26, 2024 TIME: 5:26 PM PATIENT IDENTITY VERIFICATION COMPLETED USING TWO (2) IDENTIFIERS: Name and Date of confirmed by patient verbally. FALL SCREENING: Has the patient had 2 falls in the last year or 1 fall with injury or currently using an Ambulatory Assistive Device (Walker, Cane, Wheelchair, Crutches, etc.)? Emergency Room Patient: Screened in ED PATIENT GENDER DATA: Assigned female at . status: : No status: NO. PATIENT RELEVANT IMPLANT DATA REVIEWED: Not Applicable PATIENT PRESENTS WITH AN IMPLANTABLE OR ATTACHED HUSKER OPERATOR: No RADIOLOGY DEPARTMENT: General X-ray: Exam(s) Completed: Chest X-Ray PERIPHERAL IV DATA: Not applicable SIGNED BY: RT Kadeem(R) September 26, 2024 5:26 PM Normal [facility] Basic metabolic 2000 panelon 09-26-2024 Anion gap [Moles/Vol] 9 mmol/L Normal 8-15 [facility] Comment on above: Order Comment: Specantonio steven Type: BLOOD SPECIMENOrdering Facility: [facility] Address: [address] [place] [address] Performed By: #### 2 4321-2 ####[facility] [place] LABCLIA [id number] [place] [address] [place] Calcium [Mass/Vol] 9.6 mg/dL Normal 8.5-10.2 [facility] Comment on above: Order Comment: Narinder steven Type: BLOOD SPECIMENOrdering Facility: [facility] Address: [address] [place] [address] Performed By: #### 2 4321-2 ####[facility] [place] LABCLIA [id number] [place] [address] [place] Chloride [Moles/Vol] 100 mmol/L Normal 98-107 [facility] Comment on above: Order Comment: Speci men Type: BLOOD SPECIMENOrdering Facility: [facility] Address: [address] [place] [address] Performed By: #### 2 4321-2 ####[facility] LABCLIA [id number] [place] [address] [place] CO2 [Moles/Vol] 28 mmol/L Normal 22-30 [facility] Comment on above: Order Comment: Speci men Type: BLOOD SPECIMENOrdering Facility: [facility] Address: [address] [place] [address] Performed By: #### 2 4321-2 ####[facility] LABCLIA [id number] [place] [address] [facility] Creatinine [Mass/Vol] 0.53 mg/dL Low 0.58-0.96 [facility] Comment on above: Order Comment: Speci men Type: BLOOD SPECIMENOrdering Facility: [facility] Address: [address] [place] [address] Performed By: #### 2 4321-2 ####[facility] LABCLIA [id number] [place] [address] [facility] Creatinine and Glomerular filtration rate.predicted panel (S/P/Bld) 119 mL/min/1.73m??? Normal >=60 [facility] Comment on above: Order Comment: Speci men Type: BLOOD SPECIMENOrdering Facility: [facility] Address: [address] [place] [address] Result Comment: Reyna mated Glomerular Filtration Rate (eGFR) is calculated using the 2020 CKD-EPI creatinine equation. This equation utilizes serum creatinine, sex, and age as parameters. The creatinine assay has traceable calibration to isotope dilution-mass spectrometry. Refer to KDIGO guidelines for clinical interpretation. In patients with unstable renal function, e.g. those with acute kidney injury, the eGFR may not accurately reflect actual GFR. Performed By: #### 2 4321-2 ####[facility] LABCLIA [id number] [place] [address] [place] Glucose [Mass/Vol] 99 mg/dL Normal 74-99 [facility] Comment on above: Order Comment: Narinder men Type: BLOOD SPECIMENOrdering Facility: [facility] Address: [address] [place] [address] Result Comment: The [place] Diabetes Association (ADA) provides guidance for cutoff values for fasting glucose and random glucose. The ADA defines fasting as no caloric intake for at least 8 hours. Fasting plasma glucose results between 100 to 125 mg/dL indicate increased risk for diabetes (prediabetes). Fasting plasma glucose results greater than or equal to 126 mg/dL meet the criteria for diagnosis of diabetes. In the absence of unequivocal hyperglycemia, results should be confirmed by repeat testing. In a patient with classic symptoms of hyperglycemia or hyperglycemic crisis, random plasma glucose results greater than or equal to 200 mg/dL meet the criteria for diagnosis of diabetes. Reference: Standards of Medical Care in Diabetes 2016, [place] [employer] Association. Diabetes Care. 2016.39(Suppl 1). Performed By: #### 2 4321-2 ####[facility] LABCLIA [id number] [place] [address] [place] Potassium [Moles/Vol] 4.5 mmol/L Normal 3.7-5.1 [facility] Comment on above: Order Comment: Narinder men Type: BLOOD SPECIMENOrdering Facility: [facility] Address: [address] [place] [address] Performed By: #### 2 4321-2 ####[facility] LABCLIA [id number] [place] [address] [place] Sodium [Moles/Vol] 137 mmol/L Normal 136-144 [facility] Comment on above: Order Comment: Chapitoi men Type: BLOOD SPECIMENOrdering Facility: [facility] Address: [address] [place], [place] [id number] Performed By: #### 2 4321-2 ####[facility] LABCLIA [id number] [place] [address] [place] Urea nitrogen [Mass/Vol] 8 mg/dL Normal 7-21 [facility] Comment on above: Order Comment: Speci men Type: BLOOD SPECIMENOrdering Facility: [facility] Address: [address] [place] [address] Performed By: #### 2 4321-2 ####[facility] [place] LABCLIA [id number] [place] [address] [place] [facility] CBC W Auto Differential pane l (Bld)on 09-26-2024 Basophils (Bld) [#/Vol] 0.05 10*3/uL Normal <0.11 [facility] Comment on above: Order Comment: Speci men Type: BLOOD SPECIMENOrdering Facility: [facility] Address: [address] [place] [address] Performed By: #### 5 7021-8 ####[facility] [place] LABCLIA [id number] [place] [id number] [facility] Basophils/100 WBC (Bld) 0.4 % Normal [facility] Comment on above: Order Comment: Speci men Type: BLOOD SPECIMENOrdering Facility: [facility] Address: [address] [place] [address] Performed By: #### 5 7021-8 ####[facility] [place] LABCLIA [id number] [place] [address] [facility] Differential cell count method Nom (Bld) Auto Normal [facility] Comment on above: Order Comment: Speci men Type: BLOOD SPECIMENOrdering Facility: [facility] Address: [address] [place] [address] Performed By: #### 5 7021-8 ####[facility] [place] LABCLIA [id number] [place] [id number] [facility] Eosinophils (Bld) [#/Vol] 0.30 10*3/uL Normal <0.46 [facility] Comment on above: Order Comment: Speci men Type: BLOOD SPECIMENOrdering Facility: [facility] Address: [address] [place] [address] Performed By: #### 5 7021-8 ####[facility] [place] LABCLIA [id number] [facility] [place] [address] [place] Eosinophils/100 WBC (Bld) 2.4 % Normal [facility] Comment on above: Order Comment: Speci men Type: BLOOD SPECIMENOrdering Facility: [facility] Address: [address] [place] [address] Performed By: #### 5 7021-8 ####[facility] [place] LABCLIA [id number] [facility] [place] [address] [place] Erythrocyte distribution width (RBC) [Ratio] 16.2 % High 11.5-15.0 [facility] Comment on above: Order Comment: Speci men Type: BLOOD SPECIMENOrdering Facility: [facility] Address: [address] [place] [address] Performed By: #### 5 7021-8 ####[facility] [place] LABCLIA [id number] [place] [address] [place] Hematocrit (Bld) [Volume fraction] 43.9 % Normal 36.0-46.0 [facility] Comment on above: Order Comment: Speci men Type: BLOOD SPECIMENOrdering Facility: [facility] Address: [address] [place] [address] Performed By: #### 5 7021-8 ####[facility] [place] LABCLIA [id number] [place] [address] [place] Hemoglobin (Bld) [Mass/Vol] 13.9 g/dL Normal 11.5-15.5 [facility] Comment on above: Order Comment: Speci men Type: BLOOD SPECIMENOrdering Facility: [facility] Address: [address] [place] [address] Performed By: #### 5 7021-8 ####[facility] [place] LABCLIA [id number] [place] [address] [place] Immature granulocytes (Bld) [#/Vol] 0.11 10*3/uL High <0.10 [facility] Comment on above: Order Comment: Speci men Type: BLOOD SPECIMENOrdering Facility: [facility] Address: [address] [place] [address] Performed By: #### 5 7021-8 ####[facility] [place] LABCLIA [id number] [place] [address] [facility] Immature granulocytes/100 WBC (Bld) 0.9 % Normal [facility] Comment on above: Order Comment: Speci men Type: BLOOD SPECIMENOrdering Facility: [facility] Address: [address] [place] [address] Performed By: #### 5 7021-8 ####[facility] [place] LABCLIA [id number] [place] [address] [facility] Lymphocytes (Bld) [#/Vol] 2.23 10*3/uL Normal 1.00-4.00 [facility] Comment on above: Order Comment: Speci men Type: BLOOD SPECIMENOrdering Facility: [facility] Address: [address] [place] [address] Performed By: #### 5 7021-8 ####[facility] [place] LABCLIA [id number] [place] [id number] [facility] Lymphocytes/100 WBC (Bld) 18.0 % Normal [facility] Comment on above: Order Comment: Speci men Type: BLOOD SPECIMENOrdering Facility: [facility] Address: [address] [place] [address] Performed By: #### 5 7021-8 ####[facility] [place] LABCLIA [id number] [place] [address] [place] MCH (RBC) [Entitic mass] 26.7 pg Normal 26.0-34.0 [facility] Comment on above: Order Comment: Speci men Type: BLOOD SPECIMENOrdering Facility: [facility] Address: [address] [place] [address] Performed By: #### 5 7021-8 ####[facility] [place] LABCLIA [id number] [place] [address] [place] MCHC (RBC) [Mass/Vol] 31.7 g/dL Normal 30.5-36.0 [facility] Comment on above: Order Comment: Speci men Type: BLOOD SPECIMENOrdering Facility: [facility] Address: [address] [place] [address] Performed By: #### 5 7021-8 ####[facility] [place] LABCLIA [id number] [place] [address] [facility] MCV (RBC) [Entitic vol] 84.3 fL Normal 80.0-100.0 [facility] Comment on above: Order Comment: Speci men Type: BLOOD SPECIMENOrdering Facility: [facility] Address: [address] [place] [address] Performed By: #### 5 7021-8 ####[facility] LABCLIA [id number] [address] [place] Monocytes (Bld) [#/Vol] 0.92 10*3/uL High <0.87 [facility] Comment on above: Order Comment: Speci men Type: BLOOD SPECIMENOrdering Facility: [facility] Address: [address] [place] [address] Performed By: #### 5 7021-8 ####[facility] [place] LABCLIA [id number] [place] [address] [facility] Monocytes/100 WBC (Bld) 7.4 % Normal [facility] Comment on above: Order Comment: Speci men Type: BLOOD SPECIMENOrdering Facility: [facility] Address: [address] [place] [address] Performed By: #### 5 7021-8 ####[facility] [place] LABCLIA [id number] [place] [address] [facility] [place] Neutrophils (Bld) [#/Vol] 8.75 10*3/uL High 1.45-7.50 [facility] Comment on above: Order Comment: Speci men Type: BLOOD SPECIMENOrdering Facility: [facility] Address: [address] [place] [address] Performed By: #### 5 7021-8 ####[facility] [place] LABCLIA [id number] [place] [address] [place] Neutrophils/100 WBC (Bld) 70.9 % Normal [facility] Comment on above: Order Comment: Speci men Type: BLOOD SPECIMENOrdering Facility: [facility] Address: [address] [place] [address] Performed By: #### 5 7021-8 ####[facility] [place] LABCLIA [id number] [place] [address] [place] Nucleated RBC (Bld) [#/Vol] Normal [facility] Comment on above: Order Comment: Speci men Type: BLOOD SPECIMENOrdering Facility: [facility] Address: [address] [place] [address] Performed By: #### 5 7021-8 ####[facility] [place] LABCLIA [id number] [place] [address] [place] Nucleated RBC/100 WBC (Bld) [Ratio] Normal [facility] Comment on above: Order Comment: Speci men Type: BLOOD SPECIMENOrdering Facility: [facility] Address: [address] [place] [address] Performed By: #### 5 7021-8 ####[facility] [place] LABCLIA [id number] [place] [address] [place] Platelet mean volume (Bld) [Entitic vol] 10.1 fL Normal 9.0-12.7 [facility] Comment on above: Order Comment: Speci men Type: BLOOD SPECIMENOrdering Facility: [facility] Address: [address] [place] [address] Performed By: #### 5 7021-8 ####[facility] [place] LABCLIA [id number] [place] [address] [place] Platelets (Bld) [#/Vol] 341 10*3/uL Normal 150-400 [facility] Comment on above: Order Comment: Speci men Type: BLOOD SPECIMENOrdering Facility: [facility] Address: [address] [place] [address] Performed By: #### 5 7021-8 ####[facility] LABCLIA [id number] [place] [address] [facility] RBC (Bld) [#/Vol] 5.21 10*6/uL High 3.90-5.20 [facility] Comment on above: Order Comment: Speci men Type: BLOOD SPECIMENOrdering Facility: [facility] Address: [address] [place], [place] [id number] Performed By: #### 5 7021-8 ####[facility] LABCLIA [id number] [place] [address] [facility] WBC (Bld) [#/Vol] 12.36 10*3/uL High 3.70-11.00 [facility] Comment on above: Order Comment: Speci men Type: BLOOD SPECIMENOrdering Facility: [facility] Address: [address] [place] [address] Performed By: #### 5 7021-8 ####[facility] LABCLIA [id number] [place] [address] [facility] ED NOTEon 09-26-2024 ED NOTE HNO ID: [id number] Author: NIYA GUIDO RN Service: Emergency Medicine Author Type: Registered Nurse Type: ED Notes Filed: 09/26/2024 20:28 Note Text: Pt verbalizes understanding of discharge instructions. Denies further questions, comments, concerns at this time. NAD on leaving department Normal [facility] ED NOTE HNO ID: [id number] Author: NIYA GUIDO RN Service: Emergency Medicine Author Type: Registered Nurse Type: ED Notes Filed: 09/26/2024 20:29 Note Text: Assumed care from CHAIM Elena. Patient awake and alert in bed. VSS. NAD. Respirs even and unlabored. Updated on POC. Call light in reach. Normal [facility] ED NOTE HNO ID: [id number] Author: SARAH MASSEY RN Service: ? Author Type: Registered Nurse Type: ED Notes Filed: 09/26/2024 19:13 Note Text: Report to sary guido rn [facility] ED NOTE HNO ID: [id number] Author: LUCIANA RIBERA RN Service: ? Author Type: Registered Nurse Type: ED Notes Filed: 09/26/2024 16:19 Note Text: Pt arrives with report of flu-like symptoms for one week. Pt was scheduled to see Dr Holley tomorrow, that appt cancelled due to Dr Holley being ill. Pt reports cough, feel like crap, and nebulizer not helping with breathing. No recent testing for viruses. [facility] ED PROV NOTEon 09-26-2024 ED PROV NOTE HNO ID: [id number] Author: JOURDAN WILSON MD Service: Emergency Medicine Author Type: Physician Type: ED Provider Notes Filed: 09/26/2024 23:41 Note Text: ED Provider Note Patient Name: Bhupendra Hebert : 1980 SERVICE DATE: 09/26/24 History Patient presents with: Flu Like Symptoms Cough Bhupendra Hebert is a 44 year old female with history of COPD who presents with cough that is productive of clear sputum. Patient is taking not on BILLY inhibitors. - Patient was exposed to nothing and has taken prior breathing treatments - Symptoms began 1 weeks prior to arrival. Onset was gradual and is constant - Severity: moderate - Cough is exacerbated when lying down. - Cough is not exacerbated with exertion. - Symptoms are associated with chills, congestion, and fatigue. - Symptoms are not associated with chest pain. - Improved by nothing. - Not improved by inhaler History of COPD patient continues to smoke although she is trying to quit cough x 1 week and now she is feeling some constitutional symptoms some nausea and generalized malaise. No previous hospitalization for her breathing. Denies any specific exposure history.. PAST MEDICAL HISTORY Diagnosis Date - Appendicitis - COPD (chronic obstructive pulmonary disease) (HCC) - Generalized anxiety disorder - GERD (gastroesophageal reflux disease) - Hyperlipemia PAST SURGICAL HISTORY Procedure Laterality Date - APPENDECTOMY 12/27/2023 Dr. Granados - CHOLECYSTECTOMY HX No family history on file. Social History Tobacco Use - Smoking status: Every Day Current packs/day: 1.50 Average packs/day: 1.5 packs/day for 15.0 years (22.5 ttl pk-yrs) Types: Cigarettes Passive exposure: Never - Smokeless tobacco: Never Vaping Use - Vaping status: Never Used Substance and Sexual Activity - Alcohol use: Yes Comment: rare - Drug use: Never - Sexual activity: Not on file ALLERGIES No Known Allergies Review of Systems Constitutional: Positive for chills and fatigue. Negative for fever. HENT: Positive for congestion. Negative for sore throat. Respiratory: Positive for cough. Negative for shortness of breath. Gastrointestinal: Positive for nausea. Negative for vomiting. Allergic/Immunologic : Negative for environmental allergies, food allergies and immunocompromised state. Neurological: Negative for syncope and light-headedness. Psychiatric/Behavior al: Negative for confusion. The patient is not nervous/anxious. Physical Exam Vitals [09/26/24 1612] BP Pulse Temp Temp src Resp SpO2 Weight Height 142/76 86 36.3 ?C (97.3 ?F) Temporal 22 97 % 136.1 kg (300 lb) 1.524 m (5') Physical Exam Constitutional: General: She is not in acute distress. Appearance: Normal appearance. She is not ill-appearing, toxic-appearing or diaphoretic. HENT: Head: Normocephalic and atraumatic. Right Ear: Tympanic membrane normal. Left Ear: Tympanic membrane normal. Nose: Congestion present. Mouth/Throat: Pharynx: No oropharyngeal exudate or posterior oropharyngeal erythema. Eyes: Conjunctiva/sclera: Conjunctivae normal. Cardiovascular: Rate and Rhythm: Normal rate and regular rhythm. Pulmonary: Effort: Pulmonary effort is normal. No respiratory distress. Breath sounds: Wheezing present. Musculoskeletal: General: No swelling or tenderness. Cervical back: Normal range of motion and neck supple. Skin: General: Skin is warm and dry. Capillary Refill: Capillary refill takes less than 2 seconds. Neurological: Mental Status: She is alert. Psychiatric: Mood and Affect: Mood normal. Behavior: Behavior normal. Thought Content: Thought content normal. Judgment: Judgment normal. Diagnostic Testing ED Labs Ordered and Reviewed - No data to display Procedures ED Course / Clinical Impression Clinical Impressions as of 09/26/241958 Community acquired pneumonia, unspecified laterality COPD exacerbation (HCC) MDM / Disposition / Plan Patient's signs and symptoms and x-ray are consistent with community-acquired pneumonia COPD exacerbation. She was given a steroid Rocephin and Zithromax we will continue her on Omnicef and Zithromax at home and short course of prednisone. Feeling better at disposition. No indication for transfer or admission. History and Record Review Clinical information obtained from an independent historian. History obtained from or confirmed by: spouse. Differential Diagnoses - COPD exacerbation and community-acquired pneumonia is more likely for the following reason(s): suggested by HANDP and consistent with imaging - Flu is less likely for the following reason(s): laboratory studies not suggestive Management Radiology Reports XR CHEST 1V FRONTAL Final Result IMPRESSION: Shallow inspiration and bibasilar atelectasis versus infiltrate. Welder Gun: [facility] Transcribe Date/Time: Sep 26 2024 6:58P Dictated by : GIOVANNY MAYES MD This exam (more content not included)... Normal [facility] XR CHEST 1V FRONTALon 2024 XR CHEST 1V FRONTAL * * *Final Report* * * DATE OF EXAM: Sep 26 2024 5:25PM LDX 5290 - XR CHEST 1V FRONTAL / PROCEDURE REASON: Cough * * * * Physician Interpretation * * * * CHEST RADIOGRAPH: AP view of the chest. Exam Date/Time: 09/26/2024 5:25 PM Indication: Cough Comparison: Chest x-ray 12/27/2023 RESULTS: Lines, Tubes, and Devices: None Lungs and Pleura: Shallow inspiration and bibasilar opacities. No pleural effusion or pneumothorax. Cardiomediastinal silhouette: AP technique accentuates the cardiac silhouette. Other: The bones of the chest are unremarkable. IMPRESSION: Shallow inspiration and bibasilar atelectasis versus infiltrate. Welder Gun: [facility] Transcribe Date/Time: Sep 26 2024 6:58P Dictated by : GIOVANNY MAYES MD This examination was interpreted and the report reviewed and electronically signed by: GIOVANNY MAYES MD on Sep 26 2024 7:00PM EST [id number] CN Normal [facility] Lipid 1996 panelon 5 Cholesterol [Mass/Vol] 228 mg/dL High <200 [facility] Comment on above: Order Comment: Speci men Type: BLOOD SPECIMENOrdering Facility: [facility] Address: [address] [place] [address] Result Comment: <200 mg/dL, Desirable 200-239 mg/dL, Borderline high >239 mg/dL, High Performed By: #### 2 4331-1 ####[facility] [id number] [id number] [place] [address] Cholesterol in HDL [Mass/Vol] 34 mg/dL Low >39 [facility] Comment on above: Order Comment: Speci men Type: BLOOD SPECIMENOrdering Facility: [facility] Address: [address] [place] [address] Result Comment: 40-5 9 mg/dL, Acceptable >59 mg/dL, High: Negative risk factor for coronary heart disease <40 mg/dL, Low: Positive risk factor for coronary heart disease Performed By: #### 2 4331-1 ####[facility] [id number] [id number] [place] [address] Cholesterol in LDL [Mass/Vol] 143 mg/dL High <100 [facility] [facility] [place] Comment on above: Order Comment: Speci men Type: BLOOD SPECIMENOrdering Facility: [facility] Address: [address] [place] [address] Result Comment: <100 mg/dL, Optimal 100-129 mg/dL, Near optimal/above optimal 130-159 mg/dL, Borderline high 160-189 mg/dL, High >189 mg/dL, Very high Secondary prevention optimal LDL Cholesterol levels are recommended to be < 70 mg/dL Performed By: #### 2 4331-1 ####[facility]ATORYCLIA [id number] [address] [id number] [place] Cholesterol in LDL/Cholesterol in HDL [Mass ratio] 4.21 {ratio} High <2.54 [facility] [place] Comment on above: Order Comment: Narinder steven Type: BLOOD SPECIMENOrdering Facility: [facility] Address: [address] [place] [address] Result Comment: Iris sarkar: 1. National Cholesterol Education Program ATP III Guideline At-A-Glance Quick Desk Reference: National Heart, Lung, and Blood [place]. National Institutes of Health. 2001: NIH Publication No. 01-3305. 2. An International Atherosclerosis Society position paper: global recommendations for the management of dyslipidemia: executive summary, Atherosclerosis. 2014: 232(2):410-413. Performed By: #### 2 4331-1 ####[facility] LABORATORYCLIA [id number] [address] [id number] [address] Cholesterol in VLDL [Mass/Vol] 51 mg/dL High <30 [facility] [place] Comment on above: Order Comment: Chapitoi men Type: BLOOD SPECIMENOrdering Facility: [facility] Address: [address] [place] [address] Performed By: #### 2 4331-1 ####[facility] LABORATORYCLIA [id number] [address] [id number] [place] [address] STATES OF [facility] Cholesterol non HDL [Mass/Vol] 194 mg/dL High <130 [facility] [place] Comment on above: Order Comment: Chapitoi men Type: BLOOD SPECIMENOrdering Facility: [facility] Address: [address] [place] [address] Result Comment: <130 mg/dL, Optimal 130-159 mg/dL, Near optimal/above optimal 160-189 mg/dL, Borderline high 190-219 mg/dL, High >219 mg/dL, Very high Secondary prevention optimal non HDL Cholesterol levels are recommended to be <100 mg/dL Performed By: #### 2 4331-1 ####[facility]ORYCLIA [id number] [place] [id number] [place] [address] [place] Cholesterol.total/Choles terol in HDL [Mass ratio] 6.71 {ratio} High <5.10 [facility] [place] Comment on above: Order Comment: Speci men Type: BLOOD SPECIMENOrdering Facility: [facility] Address: [address] [place] [address] Performed By: #### 2 4331-1 ####[facility]ORYCLIA [id number] [place] [id number] [place] [address] OF [facility] FASTING TIME 12 hrs Normal [facility] [place] Comment on above: Order Comment: Speci men Type: BLOOD SPECIMENOrdering Facility: [facility] Address: [address] [place] [address] Performed By: #### 2 4331-1 ####[facility]ORYCLIA [id number] [address] [id number] [place] [address] [place] Triglyceride [Mass/Vol] 253 mg/dL High <150 [facility] Comment on above: Order Comment: Speci men Type: BLOOD SPECIMENOrdering Facility: [facility] Address: [address] [place], [place] [id number] Result Comment: <150 mg/dL, Normal 150-199 mg/dL, Borderline high 200-499 mg/dL, High >499 mg/dL, Very high Performed By: #### 2 4331-1 ####[facility]ORYCLIA [id number] [address] [id number] [place] [address] [facility] OF [facility] CNOVon 09-11-2024 CNOV Office Visit (LDNESL) BHUPENDRA HEBERT ([id number]) 1980 F Date Time Provider Department 09/11/24 9:00 PM SLEEP LAB LODI BED 1 LDNESL During your visit today, we recorded the following information about you: Referring Provider: HILDA HOLLEY [[id number]] Allergies As of Date: 09/11/2024 (No Known Allergies) Date Reviewed: 08/22/2024 Reviewed by: Hilda Holley, DO - Fully Assessed Reason for Visit: Procedure [88] Visit Diagnosis:BRITTANY (obstructive sleep apnea) [G47.33] Order(s):PAP TITRATION PSG (CPAP, BIPAP, ASV) [9812795] Order #: [id number]. #:[id number] Prescriptions as of 11/15/2024 - traZODone (DESYREL) 50 mg tablet Take 50 mg by mouth daily at bedtime. - celecoxib (CELEBREX) 100 mg capsule Take 100 mg by mouth once daily. - atorvastatin (LIPITOR) 10 mg tablet Take 10 mg by mouth once daily. - venlafaxine XR (EFFEXOR XR) 225 mg tablet Take 225 mg by mouth once daily. - dextromethorphan-gua iFENesin (MUCINEX DM) 30-600 mg per tablet Take 1 tablet by mouth two times a day. - Cetirizine (ZYRTEC) 10 mg cap Take by mouth. - ADVAIR DISKUS 250-50 mcg/dose inhaler Inhale 1 Puff as instructed twice daily. - ipratropium-albutero l (DUONEB) 0.5 mg-3 mg(2.5 mg base)/3 mL nebu Use twice daily scheduled and every 6 hours as needed for Shortness of breath - omega-3 acid ethyl esters (LOVAZA) 1 gram capsule Take 1 g by mouth once daily. - pantoprazole DR (PROTONIX) 40 mg tablet Take 40 mg by mouth every morning. Problem List As Of Date 09/11/2024 Noted Resolved Acute appendicitis [K35.80] 12/26/2023 12/27/2023 [...] Atelectasis [J98.11] 12/27/2023 Acute appendicitis with generalized peritonitis*12/29/19 24 Right lower quadrant abdominal pain [R10.31] 12/29/2023 Encounter Status:Closed by JEAN-CLAUDE WOODS on 11/15/24 [facility] PAP TITRATION PSG (CPAP, BIP AP, ASV)on 09-11-2024 PAP TITRATION PSG (CPAP, BIPAP, ASV) [facility] [place] [address] ; Split Study Report Name: BHUPENDRA HEBERT Date of Study: 09/11/2024 [facility]#: [id number] Age: 44 (: 1980) ESS: Neck Circ. (cm): 48.0 Height (cm): 152.5 Weight (kg): 142.0 BMI: 61.1 Referring Provider: HILDA HOLLEY Mailcode: TOSIN Sleep history: The patient is a 44 year old female with a history of snoring, witnessed apneas, waking up choking, gasping, or snorting, waking up with dry mouth or sore throat, multiple awakenings from sleep, nocturnal leg kicking, an urge to move the legs, and fatigue. A split-night polysomnogram study was performed due to meeting split night protocol (AHI greater than 10). The patient endorses being a habitual prone sleeper. Past medical history: Anxiety, Asthma, Class III obesity, Depression, GERD Medications: Pantoprazole, Advair diskus, Lipitor, Buspar, Celebrex, Zyrtec, Mucinex, Duoneb, Lovaza, Desyrel, Effexor, Protonix Sleep procedure: PSG w/CPAP or Bilevel PAP 4 or > addtl satish PC (19324) Procedure: The study was attended continuously by a ct technologist. The monitored parameters included: left (E1-M2) and right (E2-M1) EOG, frontal (F3-M2 and F4-M1), central (C3-M2 and C4-M1) and occipital (O1-M2 and O2-M1) EEG, mental and submental EMG, left and right anterior tibialis single ECG waveform, snoring, continuous airflow with, thermistor, nasal pressure transducer, PAP interface, chest and abdominal effort, oxygen saturation, ETCO2 and body position via video monitoring. Hypopnea definition: The peak signal excursions drop by >= 30% of pre-event baseline using nasal pressure (diagnostic study), PAP device flow (titration study) or an alternative hypopnea sensor (diagnostic study). The duration of the >= 30% drop in signal excursion is >= 10 seconds. There is a greater than or equal to 3% oxygen desaturation from pre-event baseline or the event is associated with an arousal. Respiratory Effort Related Arousal (RERA) definition: 10 seconds characterized by increasing respiratory effort or by flattening of the nasal pressure or PAP flow waveform leading to arousal from sleep when the sequence of breaths does not meet criteria for an apnea or hypopnea. Respiratory Disturbance Index (RDI) definition: RDI = (#apneas + #hypopneas + #RERAs) x 60 / TST. If AHI is 0.0, then RDI = RERA index. SLEEP ARCHITECTURE: The study started at 23:01:04 and ended at 05:13:12. Total sleep time (TST) was 273 minutes resulting in a sleep efficiency of 73.4% (total recording time (TRT) = 372 m). There were 38 awakenings with a total time awake after sleep onset of 47.5 minutes. The sleep latency was 51.5 minutes and the REM latency was N/A. The patient spent 72.5% of sleep time in the supine position. The sleep stage percentages were 18.7% stage N1, 76.6% stage N2, 4.8% stage N3 and 0.0% REM sleep. There were 102 arousals, resulting in an arousal index of 22.4. There were 119 stage shifts. BASELINE RESPIRATORY DATA: Snoring was noted. There were 44 respiratory events consisting of 2 apneas [2 obstructive (100.0%), 0 mixed (0.0%), and 0 central (0.0%)], 42 hypopneas and 0 RERAs. The patient spent 86.5% of baseline sleep time in the supine position. The apnea-hypopnea index (AHI) was 39.7, the respiratory disturbance index (RDI) was 39.7, and the central-apnea index (PERLA) was 0.0. The supine AHI was 31.3. The off-supine AHI was 93.3. The REM AHI was 0.0. The non-REM AHI was 39.7 and the arousal index was 28.9. The mean oxygen saturation was 86.0%, with a minimum oxygen saturation of 81.0%. The patient spent 89.2% (59.3 min) of sleep time with an oxygen saturation below 90% and 80.3% (53.4 min) of sleep time with an oxygen saturation at or below 88%. The wake supine end-tidal CO2 (ETCO2) value was 35 mmHg. The maximum ETCO2 was 41 mmHg. The patient spent 0.0% of sleep time with an ETCO2 above 50 mmHg and 0.0% above 55 mmHg. Benson-Encarnacion/Period ic Breathing was not present. Supplemental oxygen was not administered. REM-Time REM AHI NREM-Time NREM AHI Total-Time Total RDI Total AHI Supine 0.0 m -- 57.5 m 31.3 57.5 m 31.3 31.3 Off-Supine 0.0 m -- 9.0 m 93.3 9.0 m 93.3 93.3 Total 0.0 m -- 66.5 m 39.7 66.5 m 39.7 39.7 POSITIVE AIRWAY PRESSURE THERAPY: During the second part of the study, CPAP titration was initiated at 01:19:00 and ended at 05:12:58. The patient did not have difficulty falling back asleep. Snoring was not eliminated at any of the PAP settings. There were 59 respiratory events consisting of 0 apneas [0 obstructive (0.0%), 0 mixed (0.0%), and 0 central (0.0%)], 59 hypopneas and 0 RERAs. The mean oxygen saturation during the study was 89.0%, with a minimum oxygen saturation of 84.0%. The patient spent 79.9% (165.0 min) of sleep time with an oxygen saturation below 90% and 47.6% (98.2 min) of sleep time with an oxygen satu (more content not included)... Normal [facility] CNOVon 08-22-2024 CNOV Office Visit (BREANA) BHUPENDRA HEBERT ([id number]) 1980 F Date Time Provider Department 08/22/24 3:00 PM HILDA HOLLEY During your visit today, we recorded the following information about you: Temperature Pulse Blood pressure Weight 98 degrees 89/minute 146/78 142 kg Height 1.524 m Rosana Holleyly CDO 08/25/2024 8:05 PM Signed SUBJECTIVE: 44 year old female here to establish. I have fully reviewed the past medical, surgical, social and family history and updated the Histories section of [facility]. She has a history of anxiety with [...] 50 mg by mouth daily at bedtime. sulfamethoxazole-tri methoprim (BACTRIM DS) 800-160 mg per tablet Take [...] Take 150 mg by mouth once daily. dextromethorphan-gua iFENesin (MUCINEX DM) 30-600 mg per tablet Take 1 tablet by mouth two times a day. 20 tablet 0 Cetirizine (ZYRTEC) 10 mg cap Take by mouth. ADVAIR DISKUS 250-50 mcg/dose inhaler Inhale 1 Puff as instructed twice daily. ipratropium-albutero l (DUONEB) 0.5 mg-3 mg(2.5 mg base)/3 mL [...] not taking: Reported on 08/22/2024) No current facility-administere d medications for this visit. ACTIVE PROBLEM LIST Asthma Without Status Asthmaticus Cellulitis Asthma With Chronic Obstructive Pulmonary Disease (Copd) (Hcc) Gastroesophageal Reflux Disease Generalized Anxiety Disorder Hyperlipidemia Morbid Obesity (Hcc) Brittany (Obstructive Sleep Apnea) Nicotine use disorder, F17.2 Bmi 60.0-69.9, Adult ([facility]) Tobacco Abuse Atelectasis Acute Appendicitis [...] hearing RESPIRATORY: positive for nocturnal hypoxia, BRITTANY CARDIOVASCULAR:posit neda for venous stasis, leg swelling, negative for chest pain, hypertension, CHF or palpitations GI: Positive for GERD, no nausea, vomiting, or diarrhea : No history of dysuria, frequency or incontinence MUSCULOSKELETAL: Positive for neck pain, back pain, shoulder pain, hip pain, swelling of ankles b/l SKIN: Negative for lesions, rash, and itching PSYCH:positive for anxiety, depression HEMATOLOGY/LYMPHOLOG Y: Negative for prolonged bleeding, bruising easily or swollen nodes ENDOCRINE: Negative for cold or heat intolerance, polyuria, polydipsia and goiter NEURO: Positive for b/l foot numbness PHYSICAL EXAMINATION: BP 146/78 Pulse 89 Temp 36.7 ?C (98 ?F) Ht 152.4 cm (5') Wt (!) 142 kg (313 lb) LMP 09/14/2023 (Approximate) SpO2 98% BMI 61.13 kg/m? General appearance: Well appearing, alert, in no acute dis (more content not included)... Normal [facility] Basic Metabolic Profile (BMP )on 07-11-2024 BUN/CRE 11.7 RATIO Normal 10-20 [facility] Comment on above: Performed By: #### L 500.2500, L100.0100 #### [facility] [address] [place], [address] CA,Total 8.8 mg/dL Normal 8.5-10.1 [facility] Comment on above: Performed By: #### L 500.2500, L100.0100 #### [facility] [address] [place], [address] Chloride [Moles/Vol] 106 mmol/L Normal 98-107 [facility] Comment on above: Performed By: #### L 500.2500, L100.0100 #### [facility] [address] [place], [address] CO2 [Moles/Vol] 30.0 mmol/L Normal 21.0-32.0 [facility] Comment on above: Performed By: #### L 500.2500, L100.0100 #### [facility] [address] [place], [address] Creatinine [Mass/Vol] 0.69 mg/dL Normal 0.55-1.02 [facility] Comment on above: Result Comment: The validity of the calculated GFR GFRAA in patients over 70 years has not been determined. Clinical correlation is essential. Performed By: #### L 500.2500, L100.0100 #### [facility] [address] [place], [address] EST GFR - AA 121 mL/min Normal >60 [facility] Comment on above: Result Comment: Afri can [place] GFR Calc Performed By: #### L 500.2500, L100.0100 #### [facility] [address] [place], [address] GAP 2 Low 5-15 [facility] Comment on above: Performed By: #### L 500.2500, L100.0100 #### [facility] [address] [place], [address] GFR/1.73 sq M.predicted among non-blacks MDRD (S/P/Bld) [Vol rate/Area] 100 mL/min/{1.73_m2} Normal >60 [facility] Comment on above: Result Comment: Non- GFR Calc Performed By: #### L 500.2500, L100.0100 #### [facility] [address] [place], [address] Glucose [Mass/Vol] 114 mg/dL High 74-106 [facility] Comment on above: Result Comment: Fast ing Glucose result from 100 to 125 mg/dL suggests IMPAIRED HOMEOSTASIS per A.D.A. criteria. Performed By: #### L 500.2500, L100.0100 #### [facility] [address] [place], [address] Potassium [Moles/Vol] 4.0 mmol/L Normal 3.5-5.1 [facility] Comment on above: Performed By: #### L 500.2500, L100.0100 #### [facility] [address] [place], [address] Sodium [Moles/Vol] 138 mmol/L Normal 136-145 [facility] Comment on above: Performed By: #### L 500.2500, L100.0100 #### [facility] [address] [place], [address] Urea nitrogen [Mass/Vol] 8 mg/dL Normal 7-18 [facility] Comment on above: Performed By: #### L 500.2500, L100.0100 #### [facility] [address] [place], [address] CBC W/Diff, Automatedon 12-3 0-2024 Absolute Lymph 1.86 X10 3/uL Normal 0.83-4.51 [facility] Comment on above: Performed By: #### L 500.2500, L100.0100 #### [facility] [address] [place], [address] Absolute Neut 7.4 X10 3/uL Normal 2.0-7.7 [facility] Comment on above: Performed By: #### L 500.2500, L100.0100 #### [facility] [address] [place], [address] Basophils/100 WBC (Bld) 0.7 % Normal 0-1 [facility] Comment on above: Performed By: #### L 500.2500, L100.0100 #### [facility] [address] [place], [address] Eosinophils/100 WBC (Bld) 2.9 % Normal 0-5 [facility] Comment on above: Performed By: #### L 500.2500, L100.0100 #### [facility] [address] [place], [address] Erythrocyte distribution width (RBC) [Ratio] 15.4 % High 11.6-14.6 [facility] Comment on above: Performed By: #### L 500.2500, L100.0100 #### [facility] [address] [place], [address] Hematocrit (Bld) [Volume fraction] 42.3 % Normal 37-47 [facility] Comment on above: Performed By: #### L 500.2500, L100.0100 #### [facility] [address] [place], [address] Hemoglobin (Bld) [Mass/Vol] 13.6 g/dL Normal 12.0-15.0 [facility] Comment on above: Performed By: #### L 500.2500, L100.0100 #### [facility] [address] [place], [address] IG% 1.200 High 0.0-0.9 [facility] Comment on above: Result Comment: IG% - Immature Granulocytes (promyelocytes, myelocytes and metamyelocytes) > 1% indicates that a LEFT SHIFT is Present. Performed By: #### L 500.2500, L100.0100 #### [facility] [address] [place], [address] Lymphocytes/100 WBC (Bld) 17.6 % Low 19-41 [facility] Comment on above: Performed By: #### L 500.2500, L100.0100 #### [facility] [address] [place], [address] MCH (RBC) [Entitic mass] 27.4 pg Normal 27.0-32.0 [facility] Comment on above: Performed By: #### L 500.2500, L100.0100 #### [facility] [address] [place], [address] MCHC (RBC) [Mass/Vol] 32.2 g/dL Normal 32-36 [facility] Comment on above: Performed By: #### L 500.2500, L100.0100 #### [facility] [address] [place], [address] MCV (RBC) [Entitic vol] 85.1 fL Normal 81-99 [facility] Comment on above: Performed By: #### L 500.2500, L100.0100 #### [facility] [address] [place], [address] Monocytes/100 WBC (Bld) 7.6 % Normal 0-10 [facility] Comment on above: Performed By: #### L 500.2500, L100.0100 #### [facility] [address] [place], [address] Neutrophils/100 WBC (Bld) 70.0 % Normal 47-70 [facility] Comment on above: Performed By: #### L 500.2500, L100.0100 #### [facility] [address] [place], [address] Nucleated RBC (Bld) [#/Vol] 0 10*3/uL Normal 0-5 [facility] Comment on above: Performed By: #### L 500.2500, L100.0100 #### [facility] [address] [place], [address] Platelet mean volume (Bld) [Entitic vol] 10.4 fL Normal 6.2-12.0 [facility] Comment on above: Performed By: #### L 500.2500, L100.0100 #### [facility] [address] [place], [address] Platelets (Bld) [#/Vol] 296 10*3/uL Normal 150-450 [facility] Comment on above: Performed By: #### L 500.2500, L100.0100 #### [facility] [address] [place], [address] RBC (Bld) [#/Vol] 4.97 10*6/uL Normal 4.2-5.4 [facility] Comment on above: Performed By: #### L 500.2500, L100.0100 #### [facility] [address] [place], [address] RDW SD 47.5 fl High 35.1-43.9 [facility] Comment on above: Performed By: #### L 500.2500, L100.0100 #### [facility] [address] [place], [address] WBC (Bld) [#/Vol] 10.6 10*3/uL Normal 4.4-11.0 [facility] Comment on above: Performed By: #### L 500.2500, L100.0100 #### [facility] [address] [place], [place], [address] Chest 1 View (Portable)on Chest 1 View (Portable) [facility] [address] [place], [place] [address] Chest 1 View (Portable) MR#: [id number] Acct: [id number] Name: BHUPENDRA HEBERT Rep #: [id number] : 1980 F 44 From: Zach charles MD PCP: NOT,DEFINED Status: PRE ER Study: Chest 1 View (Portable) Date of Exam: 07/11/24 Exam# [id number] Ordering Dr: Provider,Henry P. [id number] STUDY: X-RAY CHEST REASON FOR EXAM: Female, 44 years old. SOB TECHNIQUE: Single AP portable view of the chest. COMPARISON: None. FINDINGS: Increased density in both lower lung bullard worse on the right-cannot exclude atelectasis or infiltrate versus overlying breast artifact. Suggest PA and lateral images or CT of the chest. No gross effusions. Normal size heart. Normal mediastinum and bibiana. Normal visualized pulmonary arteries. Normal visualized aortic arch and descending thoracic aorta. Normal visualized thoracic spine. Normal visualized ribs, clavicles, and shoulders. There is no demonstrated abnormality of the visualized soft tissue structures of the upper abdomen. RAD/Chest 1 View (Portable) IMPRESSION: Airspace densities in both mid and lower lung bullard versus overlying soft tissue artifact. Suggest further evaluation as above. Electronically Signed: Zach Hutton MD at 20:55 EST , CC: DEFINED NOT; ED PHYSICIAN PROVIDER Welder Gun: Signed Normal [facility] Emergency Department Summary on 07-11-2024 Emergency Department Summary [facility] Medical Records Department [address] [place] [address] Emergency Department Summary 07/11/24 MR#: [id number] Acct: [id number] Name: BHUPENDRA HEBERT Rep #: [id number] : 1980 44 From: Froylan Palmer MD PCP: Care Physician,No Primary Status:REG ER Location: ED HPI History of Present Illness Chief Complaint: Shortness of Breath Detail of Chief Complaint: History of asthma, COPD with upper respiratory symptoms started 3 days ago Informant: patient Onset/Context/Timing Onset: Days (3 days prior to presentation) Context: sudden Timing: Continuous and Waxes and wanes Quality: Positive for Dyspnea on exertion and Wheezing; Negative for Orthopnea or PND Current Severity: Mild Maximum Severity: Moderate Worsened by: Exertion and Coughing Relieved by: Nothing Associated Symptoms cough, rhinorrhea and post nasal drip; Negative for ear pain, fever, sore throat, subjective, chills, sweats, clear sputum, white sputum, yellow sputum or green sputum Chest Pain: Positive for None Narrative Narrative: Patient is a 44-year-old woman who started smoking when she was a teenager. She smokes 1 pack/day. She reports her illness started 3 days prior to presentation. She has upper respiratory tract infectious symptoms with rhinorrhea, congestion, cough that is nonproductive. She does wheeze. She has history of asthma as a child. She also has COPD. She has not been on prednisone in the last 3 to 6 months. She has not used her inhaler. Patient denies fever or chills. Patient denies GI symptoms. Patient denies myalgias or arthralgias. Patient states she chronically has drainage from her eyes. She denies history of diabetes. PE Risk Factors: Negative for Cancer, OCP + Smoking + > 35, Prior DVT or PE, Recent immobilization, Recent surgery or Recent travel Prior similar symptoms: Yes (COPD/asthma exacerbation) Recent Illness/Hospitalizat ion: No PFSH PFSH Medical History (Updated 07/11/24 @ 22:[address] Froylan Palmer MD) COPD (chronic obstructive pulmonary disease) Asthma Home Medications ???Medication ???Instructions ???Recorded ???Last Taken ???Type albuterol sulfate 90 mcg/actuation 2 puff inhalation Q4H PRN PRN 07/11/24 Unknown Rx aerosol inhaler (Ventolin HFA) Wheezing ##1 prednisone 20 mg tablet 60 mg (3 x 20 mg) PO DAILY #12 07/11/24 Unknown Rx TABLETS Allergy/AdvReac Type Severity Reaction Status Date / Time No Known Allergies Allergy Verified 07/11/24 19:24 Social History (Updated 07/11/24 @ 21:[address] Froylan Palmer MD) household members: friend(s) Smoking Status: Current every day smoker tobacco type: cigarettes ROS ROS ED Constitutional Constitutional ED: Denies chills, fever(s) or sweats Eyes Eyes: Denies blurry vision, change in vision or diplopia ENT ENT ED: Reports sore throat; Denies ear pain or rhinorrhea Cardiovascular Cardiovascular: Denies chest pain, orthopnea, palpitations or paroxysmal nocturnal dyspnea Respiratory/Chest Respiratory/Chest: Reports cough, dyspnea and dyspnea on exertion; Denies orthopnea, paroxysmal nocturnal dyspnea or sputum Gastrointestinal Gastrointestinal: Denies abdominal pain, diarrhea, melena, nausea or vomiting Genitourinary Genitourinary ED: Denies dysuria, hematuria or urinary frequency Musculoskeletal Musculoskeletal: Denies arthralgias or myalgias Integumentary Denies rash Neurologic Neurologic: Denies headache(s), paresthesias or weakness Hematologic/Lymphati c Hematologic/Lymphati c: Denies easy bleeding or easy bruising EXAM Physical Exam Const Vital Signs: 07/11/24 19:22 07/11/24 21:22 07/11/24 22:00 Temperature 97.6 F L 98.0 F Temperature Source Oral Oral Pulse Rate 89 80 88 Respiratory Rate 20 H 20 H 18 Respiratory Effort Blood Pressure 158/68 H 141/59 H 159/75 H Blood Pressure Mean 98 86 103 Pulse Ox 95 96 93 Oxygen Delivery Method Room Air Room Air Room Air 07/11/24 22:06 07/11/24 22:06 07/11/24 22:08 Temperature Temperature Source Pulse Rate Respiratory Rate 20 H Respiratory Effort Normal Non-Labored Blood Pressure Blood Pressure Mean Pulse Ox 96 96 Oxygen Delivery Method Room Air Room Air Room Air Positive well nourished, well developed and unkempt Constitutional Narrative: BMI is greater than 40. Vital signs are marked for an elevated blood pressure. Patient not febrile. Pulse ox is 95% on room air. General Appearance ED: unkempt and well developed; Negative for pallor HEENT Reports TM's clear and moist mucous membranes HEENT Narrative: Posterior pharynx is normal. atraumatic; Negative for tenderness Tympanic Membrane ED: Yes TM's clear Eyes PERRL and EOMs intact bilaterally Eyes Narrative: Conjunctive is slightly injected with discharge noted bilaterally (more content not included)... Normal [facility] M100.678on 07-11-2024 M100.678 Pending SARS-CoV-2 (COVID 19) Negative INFLUENZA A Negative INFLUENZA B Negative RSV PCR Negative Normal [facility] Comment on above: Performed By: #### M 100.678 ####[facility] [id number] [place], [address] PT Outpatient Time Spent Wit h Pt-Texton 05-11-2024 PT Outpatient Time Spent With Pt-Text PT Outpatient Time Spent With Patient Entered On: 05/11/2024 16:44 EDT Performed On: 05/04/2024 16:44 EDT by Antonina Leigh PT Time Spent with Patient - Outpatient PT Time In : 00:00 EDT PT Time Out : 00:00 EDT PT Therapeutic Exercise Units : 0 units PT Therapeutic Exercise Time : 0 minutes PT Total Timed Code Treatment Units : 0 units PT Total Timed Code Tx Minutes : 0 minutes 8 Min Rule Unit Check PT OP : 0 units PT Total Treatment Time Rehab : 0 minutes 8 Min Rule Unit Difference PT OP : 0 Antonina Leigh PT - 05/11/2024 16:44 EDT PT Units Lost Grid PT Units Lost #1 Amount (units) : 3 Reason : Cancel Count Antonina Leigh PT - 05/11/2024 16:44 EDT Normal [facility] CT BRAIN WO IVCONon 05-05-[address] BRAIN WO IVCON * * *Final Report* * * DATE OF EXAM: May 05 2024 5:31PM [facility] [place] [address] - CT BRAIN WO IVCON / PROCEDURE REASON: Seizure disorder, clinical change * * * * Physician Interpretation * * * * EXAMINATION: CT BRAIN WO IVCON CLINICAL HISTORY: Seizure disorder, clinical change SEIZURE DISORDER TECHNIQUE: Serial axial images without IV contrast were obtained from the vertex to the foramen magnum. MQ: [id number] CT Radiation dose: Integrated Dose-Length Product (DLP) for this visit = 748 mGy*cm CT Dose Reduction Employed: Automated exposure control(AEC) and iterative recon COMPARISON: 09/26/2021 CT brain RESULT: Pharmacy Resource Tech (topogram) images: No significant findings. Post-operative change: None. Acute change: No evidence of an acute infarct or other acute parenchymal process. Hemorrhage: No evidence of acute intracranial hemorrhage. ECASS hemorrhagic transformation score: Not Applicable Mass Lesion / Mass Effect: There is no evidence of an intracranial mass or extraaxial fluid collection. No significant mass effect. Chronic change: None apparent. Parenchyma: There is no significant volume loss. The brain parenchyma is otherwise within normal limits for age. Ventricles: The ventricles are within normal limits of size and configuration for age. Paranasal sinuses and skull base: The visualized paranasal sinuses are grossly clear. The skull base and imaged soft tissues are unremarkable. IMPRESSION: No acute intracranial process. Welder Gun: DAVY Transcribe Date/Time: May 05 2024 5:42P Dictated by : DORA MENDIETA MD This examination was interpreted and the report reviewed and electronically signed by: DORA MENDIETA MD on May 05 2024 5:43PM EST [id number] [facility] ED NOTEon 05-05-2024 ED NOTE HNO ID: [id number] Author: CLIFFORD WHITTEN RN Service: Nursing Author Type: Registered Nurse Type: ED Notes Filed: 05/05/2024 18:12 Note Text: OVERHEAD WORKER Rafiq rounded on patient at this time. Patient results of testing, imaging, and discharge plan of care was discussed by provider at this time. Patient is agreeable to discharge plan of care at this time. This RN provided prescription education, discharge instructions, and follow up care instructions to patient at discharge. Patient verbalized understanding of all discharge teaching. VS are stable. Patient was discharged in stable condition with ride home from significant other. [facility] ED NOTE HNO ID: [id number] Author: ROBERT DELGADO RN Service: Nursing Author Type: Registered Nurse Type: ED Notes Filed: 05/05/2024 15:51 Note Text: Assumed care of patient from triage at this time. [facility] ED PROV NOTEon 05-05-2024 ED PROV NOTE HNO ID: [id number] Author: RAFIQ BRASHER APRN.ADONIS Service: ? Author Type: Nurse Practitioner Type: ED Provider Notes Filed: 05/05/2024 17:55 Note Text: ED Provider Note Patient Name: Bhupendra Hebert : 1980 SERVICE DATE: 05/05/24 History Patient presents with: Fall: multiple falls arm and leg pain Anxiety: multiple attacks. Seizures: pt thinks that she is having anxiety seizures. 43-year-old female presents to the emergency department with seizure-like activity for the last couple of days. She reports history of anxiety seizures . She reports seeing many specialists and had workups without a definitive diagnosis but she has not had any episodes since 2014. She states she never had any other medications refilled since then. She denies any new medications, recent illness, fevers or chills. She denies being on any seizure medications at this time. Her partner reports that she has fallen a lot recently and having more frequent episodes. She reports during these episodes she does not have any pain or palpitations but she just feels frozen. She has no chest pain or palpitations. No headache, lightheadedness or dizziness. History provided by: Patient and significant other title lawyer used: No PAST MEDICAL HISTORY Diagnosis Date Appendicitis PAST SURGICAL HISTORY Procedure Laterality Date APPENDECTOMY 12/27/2023 Dr. Granados No family history on file. Social History Tobacco Use Smoking status: Every Day Current packs/day: 1.50 Average packs/day: 1.5 packs/day for 15.0 years (22.5 ttl pk-yrs) Types: Cigarettes Passive exposure: Never Smokeless tobacco: Never Vaping Use Vaping status: Never Used Substance and Sexual Activity Alcohol use: Never Comment: occ Drug use: Never Sexual activity: Not on file ALLERGIES No Known Allergies Review of Systems Constitutional: Negative for chills and fever. HENT: Negative for congestion and sore throat. Eyes: Negative. Respiratory: Negative for cough and shortness of breath. Cardiovascular: Negative for chest pain and palpitations. Gastrointestinal: Negative for abdominal pain and vomiting. Endocrine: Negative. Genitourinary: Negative for dysuria and frequency. Musculoskeletal: Negative for arthralgias and myalgias. Skin: Negative for rash and wound. Allergic/Immunologic : Negative. Neurological: Positive for seizures. Negative for dizziness and syncope. Psychiatric/Behavior al: Negative. Physical Exam Vitals [05/05/24 1537] BP Pulse Temp Temp src Resp SpO2 Weight Height 139/85 75 36.7 ?C (98.1 ?F) Oral 18 95 % -- -- Physical Exam Vitals and nursing note reviewed. Constitutional: General: She is not in acute distress. Appearance: Normal appearance. She is not toxic-appearing. HENT: Head: Normocephalic and atraumatic. Cardiovascular: Rate and Rhythm: Normal rate and regular rhythm. Pulses: Normal pulses. Pulmonary: Effort: Pulmonary effort is normal. Breath sounds: Normal breath sounds. No wheezing, rhonchi or rales. Abdominal: General: Bowel sounds are normal. Palpations: Abdomen is soft. Tenderness: There is no abdominal tenderness. Skin: General: Skin is warm. Capillary Refill: Capillary refill takes less than 2 seconds. Neurological: Mental Status: She is alert and oriented to person, place, and time. Psychiatric: Mood and Affect: Mood normal. Behavior: Behavior normal. Behavior is cooperative. Diagnostic Testing ED Labs Ordered and Reviewed URINALYSIS WITH MICROSCOPIC, REFLEX CULTURE - Abnormal; Notable for the following components: Result Value Ref Range Bacteria Rare (*) None Seen /HPF All other components within normal limits Procedures ED Course / Clinical Impression Clinical Impressions as of 05/05/24 1755 Anxiety attack Fall, initial encounter MDM / Disposition / Plan Vital signs, triage records and nursing notes were reviewed and incorporated. Patient is a 43 year old female who presents today with anxiety seizures. Physical exam reveals non-toxic appearing female, AANDOX3, neurologically intact, breathing is unlabored, no use of accessory muscles.Heart rate and rhythm are regular. Lungs are clear. Abdomen is soft, nondistended, nontender. . Vital signs are stable on initial exam.Ordered and reviewed testing includes UA negative . History and Record Review Clinical information obtained from an independent historian. History obtained from or confirmed by: other (see comments) (partner). External record(s) reviewed: prior inpatient record. Findings from review of inpatient records: Admitted 12/2023 for appendicitis Differential Diagnoses - Anxiety is more likely for the following reason(s): suggested by HANDP - Seizure is less likely for the following reason(s): no focal deficits or evidence of seizure activity while in the ED, HANDP not suggestive - UTI is less likely for the following telma (more content not included)... Normal [facility] Urinalysis complete panel (U )on 05-05-2024 Bacteria LM.HPF (Urine sed) [#/Area] Rare Abnormal None Seen [facility] Comment on above: Order Comment: Speci men Type: URINE SPECIMEN Ordering Facility: [facility] Address: [address] [place] [address] Performed By: #### 2 106-3 #### [facility] CLIA [id number] [address] Bilirubin Ql (U) Negative Normal Negative [facility] Comment on above: Order Comment: Speci men Type: URINE SPECIMEN Ordering Facility: [facility] Address: [address] [place] [address] Performed By: #### 2 106-3 #### [facility] CLIA [id number] [address] Clarity (Unsp spec) Clear Normal Clear [facility] Comment on above: Order Comment: Speci men Type: URINE SPECIMEN Ordering Facility: [facility] Address: [address] [place] [address] Performed By: #### 2 106-3 #### [facility] CLIA [id number] [address] Color (U) Yellow Normal Yellow [facility] Comment on above: Order Comment: Speci men Type: URINE SPECIMEN Ordering Facility: [facility] Address: [address] [place] [address] Performed By: #### 2 106-3 #### [facility] CLIA [id number] [address] Epithelial cells LM.HPF (Urine sed) [#/Area] Few Normal [facility] Comment on above: Order Comment: Speci men Type: URINE SPECIMEN Ordering Facility: [facility] Address: [address] [place] [address] Performed By: #### 2 106-3 #### [facility] CLIA [id number] [address] [place] Glucose Test strip (U) [Mass/Vol] Negative Normal Negative [facility] Comment on above: Order Comment: Speci men Type: URINE SPECIMEN Ordering Facility: [facility] Address: [address] [place] [address] Performed By: #### 2 106-3 #### [facility] CLIA [id number] [address] [place] Hemoglobin Ql (U) Negative Normal Negative [facility] Comment on above: Order Comment: Speci men Type: URINE SPECIMEN Ordering Facility: [facility] Address: [address] [place] [address] Performed By: #### 2 106-3 #### [facility] CLIA [id number] [address] [place] [address] [place] Ketones Ql (U) Negative Normal Negative [facility] Comment on above: Order Comment: Speci men Type: URINE SPECIMEN Ordering Facility: [facility] Address: [address] [place] [address] Performed By: #### 2 106-3 #### [facility] CLIA [id number] [address] [place] Leukocyte esterase Test strip Ql (U) Negative Normal Negative [facility] Comment on above: Order Comment: Speci men Type: URINE SPECIMEN Ordering Facility: [facility] Address: [address] [place] [address] Performed By: #### 2 106-3 #### [facility] CLIA [id number] [address] [place] [address] [place] Nitrite Ql (U) Negative Normal Negative [facility] Comment on above: Order Comment: Speci men Type: URINE SPECIMEN Ordering Facility: [facility] Address: [address] [place] [address] Performed By: #### 2 106-3 #### [facility] CLIA [id number] [address] pH (U) 7.0 [pH] Normal 5.0-8.0 [facility] Comment on above: Order Comment: Speci men Type: URINE SPECIMEN Ordering Facility: [facility] Address: [address] [place] [address] Performed By: #### 2 106-3 #### [facility] CLIA [id number] [address] [place] Protein (U) [Mass/Vol] Negative Normal Negative [facility] Comment on above: Order Comment: Speci men Type: URINE SPECIMEN Ordering Facility: [facility] Address: [address] [place] [address] Performed By: #### 2 106-3 #### [facility] CLIA [id number] [address] RBC LM.HPF (Urine sed) [#/Area] 0-3 /HPF Normal 0-3 /HPF [facility] Comment on above: Order Comment: Speci men Type: URINE SPECIMEN Ordering Facility: [facility] Address: [address] [place] [address] Performed By: #### 2 106-3 #### [facility] CLIA [id number] [address] Specific gravity (U) [Rel density] 1.010 Normal 1.005-1.030 [facility] Comment on above: Order Comment: Speci men Type: URINE SPECIMEN Ordering Facility: [facility] Address: [address] [place] [address] Performed By: #### 2 106-3 #### [facility] CLIA [id number] [address] Urobilinogen Ql (U) 0.2 EU/dL Normal 0.2-1.0 EU/dL [facility] Comment on above: Order Comment: Speci men Type: URINE SPECIMEN Ordering Facility: [facility] Address: [address] [place] [address] Performed By: #### 2 106-3 #### [facility] CLIA [id number] [address] [place] [address] [place] [facility] WBC LM.HPF (Urine sed) [#/Area] 0-5 /HPF Normal 0-5 /HPF [facility] Comment on above: Order Comment: Speci men Type: URINE SPECIMEN Ordering Facility: [facility] Address: [facility] [address] [place] [id number] Performed By: #### 2 106-3 #### [facility] CLIA [id number] [address] [place] [address] [place] Phone Msgon 04-05-2024 Phone Msg - From: Vito Boykin MA ([facility]) To: BHUPENDRA HEBERT Sent: 04/05/2024 07:52:54 EDT Subject: FW: Vandana Davis DO --- [facility] PUL[employer]ER: Just curious Brandon Taylor, Vaginitis is not a STD it is vaginal infection that cannot be passed back and forth with intercourse. You should be fine, just let us know if you have any symptoms. - From: BHUPENDRA HEBERT To: Vandana Davis DO --- [facility] ([facility]) Sent: 04/04/2024 04:45 p.m. 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 It has been successfully sent to the appropriate care team. My girlfriend tested positive for vaginitis can I schedule myself a std test Normal [facility] Physician Progress No neeta 03-13-2024 [facility] Physician Progress Note BHUPENDRA EHBERT :1980 Registration Date:03/09/2024 Assessment/Plan This Visit Diagnosis 1. Abnormal uterine bleeding (AUB) N93.9 mirena at risk for uterine cancer 2. IUD check up Z30.431 3. Incontinence of urine R32 pelvic floor PT 4. Incontinence of bowel R15.9 pelvic floor PT bmi 60- healthy lifestyle sleep apnea- get healthy to help avoid complications from sleep Medication Reconciliation What How Much When Instructions Unchanged atorvastatin (atorvastatin 10 mg oral tablet) 1 Tabs Oral AT BEDTIME Unchanged celecoxib (CeleBREX 100 mg oral capsule) 1 Capsules Oral DAILY Unchanged cetirizine (cetirizine 10 mg oral tablet) 1 Tabs Oral DAILY Unchanged diphenhydrAMINE (diphenhydrAMINE 25 mg oral capsule) 1 Capsules Oral AT BEDTIME as needed for for insomnia/allergies Unchanged omega-3 polyunsaturated fatty acids (omega-3 polyunsaturated fatty acids ethyl esters 1000 mg oral capsule) 1 Capsules Oral DAILY Unchanged pantoprazole (pantoprazole 40 mg oral delayed release tablet) 1 Tabs Oral AT BEDTIME Unchanged trazodone = Desyrel (traZODone 50 mg oral tablet) 1 Tabs Oral AT BEDTIME Unchanged venlafaxine (venlafaxine 150 mg oral capsule, extended release) 1 Capsules Oral AT BEDTIME Unchanged venlafaxine (venlafaxine 225 mg oral tablet, extended release) 1 Tabs Oral AT BEDTIME takes with 150mg Chief Complaint 2 wk post op, 02/26/24 D&C hysteroscopy and mirena insertion History of Present Illness has a 30 second every day no dysuria bleeding stopped hot flashes encourage healthy diet and exercise increased leaking stool and bladder- I recommended trying to avoid surgery with her sleep apnea she had limited reserve and was a difficult intubation- surgery risky- she reports always a low O2 sat again get healthy plan pelvic floor PT her sleep apnea so bad with anesthesia that I am concerned of more surgery reiterated again she needs to get healthy she is on disability for Left leg weakness encouraged be her own advocate Physical Exam Vitals & Measurements BP: 120/70 HT: 152 cm WT: 139 kg BMI: 60.16 Depression Screening Scores Initial Depression Screen Score: 0 (03/09/24 14:35:00) Fall Risk Assessment Is the patient ambulatory (mobile): Yes (03/09/24 14:35:00) Have you had a fall within the past: No (03/09/24 14:35:00) Have you had 2 or more falls in the past: No (03/09/24 14:35:00) HAND BOX COVERER Additional Details Menstrual History Menstrual StatusMenarcheal Contraception Contraception MethodIUD IUD TypeMirena IUD Insertion Date02/26/24 IUD Expiration Date02/25/29 OB History History (0,0,1,0) # 1 Baby 1 Outcome Date: 2003 Outcome or Result: Spontaneous Gest Age: -- Outcome: Sex: -- Problem List/Past Medical History Ongoing Abnormal bleeding in menstrual cycle BMI 50.0-59.9, adult Hirsutism Incontinence of bowel Incontinence of urine PCOS (polycystic ovarian syndrome) Thickened endometrium Historical Cervical smear, as part of routine gynecological examination Procedure/Surgical History Hysteroscopy with dilation and curettage.: 02/26/24: VANDAAN CUTLER D&C hysteroscopy and mirena insertion: 02/26/24 Gall bladder removal: 2013 [place] tooth removal: 2006 Medications atorvastatin(atorvas tatin 10 mg oral tablet), 10 mg= 1 tabs, ORAL, QHS celecoxib(CeleBREX 100 mg oral capsule), 100 mg= 1 caps, ORAL, DAILY cetirizine(cetirizin e 10 mg oral tablet), 10 mg= 1 tabs, ORAL, DAILY diphenhydrAMINE(diph enhydrAMINE 25 mg oral capsule), 25 mg= 1 caps, ORAL, QHS, PRN omega-3 polyunsaturated fatty acids(omega-3 polyunsaturated fatty acids ethyl esters 1000 mg oral capsule), 1000 mg= 1 caps, ORAL, DAILY pantoprazole(pantopr azole 40 mg oral delayed release tablet), 40 mg= 1 tabs, ORAL, QHS trazodone = Desyrel(traZODone 50 mg oral tablet), 50 mg= 1 tabs, ORAL, QHS venlafaxine(venlafax ine 225 mg oral tablet, extended release), 225 mg= 1 tabs, ORAL, QHS venlafaxine(venlafax ine 150 mg oral capsule, extended release), 150 mg= 1 caps, ORAL, QHS Allergies No Known Allergies No Known Medication Allergies Social History Alcohol - Denies Alcohol Use Sexual Sexually active:Yes Other contraceptive use:mirena inserted 02/26/24 Self described orientation:Lesbian, pereira or homosexual Substance Abuse - Denies Substance Abuse Tobacco Use:10 or more cigarettes (1/2 pack or more)/day in last 30 days Type:Cigarettes Family History Breast cancer..: Aunt. Cervical cancer..: Mother. Health Status Family Member(s) Normal [facility] Ambulatory Clinical Summaryo n 03-09-2024 Ambulatory Clinical Summary BHUPENDRA HEBERT :1980 [facility]:[id number] Registration Date:03/09/2024 Ambulatory Visit Instructions Your Diagnosis Abnormal uterine bleeding (AUB) IUD check up Incontinence of urine Incontinence of bowel Your Care Team Attending Physician - VANDANA CUTLER Primary Care Physician - MONICA FERNANDEZ MD Procedures Performed D&C hysteroscopy and mirena insertion (02/26/2024) Hysteroscopy with dilation and curettage. (02/26/2024) Gall bladder removal (2013) [place] tooth removal (2006) Discharge Vitals Blood Pressure 120/70 Height 59.84 in (152 cm) Weight 306.50 lb (139 kg) BMI 60.16 Systolic Blood Pressure: 120 mmHg (03/09/24 14:35:00) Diastolic Blood Pressure: 70 mmHg (03/09/24 14:35:00) Mean Arterial Pressure: 87 mmHg (03/09/24 14:35:00) Height/Length Measured: 152 cm (03/09/24 14:35:00) Weight Measured: 139 kg (03/09/24 14:35:00) Body Mass Index Measured: 60.16 kg/m2 (03/09/24 14:35:00) Weight Measured - lbs2: 306 lb (03/09/24 14:35:00) Height/Length Measured - in2: 59.84 in (03/09/24 14:35:00) Body Mass Index Measured English2: 60.07 kg/m2 (03/09/24 14:35:00) BSA: 2.42 m2 (03/09/24 14:35:00) Ht/Wt Measurement Refused by Patient?2: No (03/09/24 14:35:00) What to do next Scheduled Follow-Up Appointments No results Medications What How Much When Instructions Unchanged atorvastatin (atorvastatin 10 mg oral tablet) 1 Tabs Oral AT BEDTIME Unchanged celecoxib (CeleBREX 100 mg oral capsule) 1 Capsules Oral DAILY Unchanged cetirizine (cetirizine 10 mg oral tablet) 1 Tabs Oral DAILY Unchanged diphenhydrAMINE (diphenhydrAMINE 25 mg oral capsule) 1 Capsules Oral AT BEDTIME as needed for for insomnia/allergies Unchanged omega-3 polyunsaturated fatty acids (omega-3 polyunsaturated fatty acids ethyl esters 1000 mg oral capsule) 1 Capsules Oral DAILY Unchanged pantoprazole (pantoprazole 40 mg oral delayed release tablet) 1 Tabs Oral AT BEDTIME Unchanged trazodone = Desyrel (traZODone 50 mg oral tablet) 1 Tabs Oral AT BEDTIME Unchanged venlafaxine (venlafaxine 150 mg oral capsule, extended release) 1 Capsules Oral AT BEDTIME Unchanged venlafaxine (venlafaxine 225 mg oral tablet, extended release) 1 Tabs Oral AT BEDTIME takes with 150mg Allergies No Known Allergies No Known Medication Allergies Problems Ongoing - Any problem that you are currently receiving treatment for. Abnormal bleeding in menstrual cycle BMI 50.0-59.9, adult Hirsutism Incontinence of bowel Incontinence of urine PCOS (polycystic ovarian syndrome) Thickened endometrium Common Emergency Awareness Tips IS IT A STROKE? Act FAST and Check for these signs: FACE Does the face look uneven? ARM Does one arm drift down? SPEECH Does their speech sound strange? TIME Call at any sign of stroke Heart Attack Signs Chest discomfort: Most heart attacks involve discomfort in the center of the chest and lasts more than a few minutes, or goes away and comes back. It can feel like uncomfortable pressure, squeezing, fullness or pain. Discomfort in upper body: Symptoms can include pain or discomfort in one or both arms, back, neck, jaw or stomach. Shortness of breath: With or without discomfort. Other signs: Breaking out in a cold sweat, nausea, or lightheaded. Remember, MINUTES DO MATTER. If you experience any of these heart attack warning signs, call to get immediate medical attention! Normal [facility] Comprehensive Intake - Texto n 03-09-2024 Comprehensive Intake - Text Comprehensive Intake Entered On: 03/09/2024 14:36 EDT Performed On: 03/09/2024 14:35 EDT by Vito Boykin MA Summary Chief Complaint : 2 wk post op, 02/26/24 D&C hysteroscopy and mirena insertion Advance Directive : No Bladder Control Issues? : No Urine Leakage? : No Presence or absence of urinary incontinence assessed : Yes CPT-II Medication list doc'd in medical record : Yes Influenza immunization administered or previously received : No Pneumococcal vaccine administered or previously received : No Vito Boykin MA - 03/09/2024 14:35 EDT Measurements Weight Measured : 139 kg(Converted to: 306 lb 7 oz, 306.443 lb) Body Mass Index Measured : 60.16 kg/m2 Body Mass Index documented : Yes Weight Measured - lbs : 306 lb(Converted to: 306 lb 0 oz, 139 kg) Body Mass Index Measured Cymraes : 60.07 kg/m2 BSA Cymraes : 2.42 m2 Vito Boykin MA - 03/09/2024 14:36 EDT Ht/Wt Measurement Refused by Patient? : No Height/Length Measured : 152 cm(Converted to: 5 ft 0 in, 59.84 in) Height/Length Measured - in : 59.84 in(Converted to: 5 ft 0 in, 152 cm) Vito Boykin MA - 03/09/2024 14:35 EDT Vitals Require BP : Yes Systolic Blood Pressure : 120 mmHg Diastolic Blood Pressure : 70 mmHg Mean Arterial Pressure : 87 mmHg Last Systolic BP : less than 130 mmHg Last Diastolic BP : less than 80 mmHg Pain Present : No actual or suspected pain Pain : 0 Pain severity quantified : No pain present Vito Boykin MA - 03/09/2024 14:36 EDT Infection Screening Travel outside [place] within past 21 days : No Positive COVID test in the last 10 days? : No Exposure to and/or close contact with a person who has a laboratory-confirmed COVID test within the last 48 hours. : No Vito Boykin MA - 03/09/2024 14:35 EDT Depression Screening Is patient currently : None of the Below Feeling Down, Depressed, Hopeless : Not at all Little Interest - Pleasure in Activities : Not at all Initial Depression Screen Score : 0 Depression Screening Score 0 : No Vito Boykin MA - 03/09/2024 14:35 EDT Falls Risk Assessment Is the patient ambulatory (mobile) : Yes Have you had 2 or more falls in the past year : No Have you had a fall within the past year that has caused an injury : No Patient screen for fall risk : no falls in last year OR 1 fall with no injury in last year Vito Boykin MA - 03/09/2024 14:35 EDT Normal [facility] HAND BOX COVERER Visit - Texton HAND BOX COVERER Visit - Text HAND BOX COVERER Visit Entered On: 03/08/2024 9:16 EDT Performed On: 03/08/2024 9:15 EDT by Vito Boykin MA HAND BOX COVERER Menstrual History Menstrual Status : Menarcheal Vito Boykin MA - 03/08/2024 9:15 EDT Contraception Contraception Method : IUD IUD Type : Mirena IUD Insertion Date : 02/26/24 IUD Expiration Date : 02/25/29 Vito Boykin MA - 03/08/2024 9:15 EDT Normal [facility] DBT Breast - bilateral diagn ostic for implanton 03-01-2024 * * *Final Report* * * DATE OF EXAM: Mar 01 2024 8:14AM EDDIE 0627 - [facility] NIKKI W RAFFI LORELEI / PROCEDURE REASON: BREAT PAIN LEFT N64.4 * * * * Physician Interpretation * * * * #[id number] - [facility] NIKKI W RAFFI LORELEI #[id number] - [facility] BREAST LTD RT BILATERAL DIGITAL DIAGNOSTIC MAMMOGRAM TOMOSYNTHESIS WITH CAD: 03/01/2024 HISTORY: Breat Pain Left N64.4/bilat diffuse pain subareolar region, lump or cyst on right/new baseline Breat Pain Left N64.4. RESULT: TECHNIQUE: The study was acquired using full field digital technology and interpreted from soft copy. Digital Breast Tomosynthesis (DBT) images were obtained and used to assist in the interpretation of this examination. Current study was also evaluated with a Computer Aided Detection (CAD). No prior exams were available for comparison. The breasts are heterogeneously dense, which may obscure small masses. The patient presented with complaints of a lump on the RIGHT breast lower outer aspect. Attempts to obtain a diagnostic bilateral mammogram were significantly limited as the patient was extremely difficult to position and winded during pictures. Best obtainable films are submitted. A triangle marker was placed inferiorly on the area of concern on the RIGHT. No underlying abnormality is seen. The glandular tissue is fatty in this area. There are no dominant masses or suspicious microcalcifications. The axillary regions were partially included and were negative. No significant masses, calcifications, or other findings are seen in either breast. [facility]IOLOG[facility] Provider, [facility] [place] - 03/01/2024 * * *Final Report* * * DATE OF EXAM: Mar 01 2024 8:14AM EDDIE 0627 - [facility] DIAG W RAFFI LORELEI / PROCEDURE REASON: BREAT PAIN LEFT N64.4 * * * * Physician Interpretation * * * * #[id number] - [facility] DIAG W RAFFI LORELEI #[id number] - [facility] US BREAST LTD RT BILATERAL DIGITAL DIAGNOSTIC MAMMOGRAM TOMOSYNTHESIS WITH CAD: 03/01/2024 HISTORY: Breat Pain Left N64.4/bilat diffuse pain subareolar region, lump or cyst on right/new baseline Breat Pain Left N64.4. RESULT: TECHNIQUE: The study was acquired using full field digital technology and interpreted from soft copy. Digital Breast Tomosynthesis (DBT) images were obtained and used to assist in the interpretation of this examination. Current study was also evaluated with a Computer Aided Detection (CAD). No prior exams were available for comparison. The breasts are heterogeneously dense, which may obscure small masses. The patient presented with complaints of a lump on the RIGHT breast lower outer aspect. Attempts to obtain a diagnostic bilateral mammogram were significantly limited as the patient was extremely difficult to position and winded during pictures. Best obtainable films are submitted. A triangle marker was placed inferiorly on the area of concern on the RIGHT. No underlying abnormality is seen. The glandular tissue is fatty in this area. There are no dominant masses or suspicious microcalcifications. The axillary regions were partially included and were negative. No significant masses, calcifications, or other findings are seen in either breast. IMPRESSION IMPRESSION: INCOMPLETE: NEED ADDITIONAL IMAGING EVALUATION Limited positioning [...] she repeatedly tries to pop the skin Christianity and that it is not new. The [...] 1 year screening mammogram is recommended. Clark IBARRA, [facility]/miracle:03/01/2024 09:25:26 Multiple national specialty organizations have released breast cancer screening guidelines for women at average risk for developing breast cancer - guidelines that are based on both evidence and opinion, yet differ on when to start and how often to screen for breast cancer. With representation from Breast Imaging, Internal Medicine, Women's Health, Family Medicine, and Medical/Surgical Oncology, the [facility] has carefully reviewed the data and [...] their providers when to stop screening mammograms. Global Mobility Specialist(s): Sandra Toledo, [facility]; RT Reagan(R)(M), [facility] OVERALL STUDY BIRADS: Category 2: Benign Welder Gun: Miracle Transcribe Date/Time: Mar 01 2024 8:14A Dictated by : CLARK SIM MD This examination was interpreted and the report reviewed and electronically signed by: CLARK SIM MD on Mar 01 2024 9:25AM [facility] Radiology Study observation (narrative) [place]lucho [facility] ABHAY DIAG W RAFFI BILon 2023 [facility] DIAG W RAFFI LORELEI * * *Final Report* * * DATE OF EXAM: Mar 01 2024 8:14AM MDW 0627 - [facility] DIAG W RAFFI LORELEI / PROCEDURE REASON: BREAT PAIN LEFT N64.4 * * * * Physician Interpretation * * * * #[id number] - [facility] DIAG W RAFFI LORELEI #[id number] - [facility] US BREAST LTD RT BILATERAL DIGITAL DIAGNOSTIC MAMMOGRAM TOMOSYNTHESIS WITH CAD: 03/01/2024 HISTORY: Breat Pain Left N64.4/bilat diffuse pain subareolar region, lump or cyst on right/new baseline Breat Pain Left N64.4. RESULT: TECHNIQUE: The study was acquired using full field digital technology and interpreted from soft copy. Digital Breast Tomosynthesis (DBT) images were obtained and used to assist in the interpretation of this examination. Current study was also evaluated with a Computer Aided Detection (CAD). No prior exams were available for comparison. The breasts are heterogeneously dense, which may obscure small masses. The patient presented with complaints of a lump on the RIGHT breast lower outer aspect. Attempts to obtain a diagnostic bilateral mammogram were significantly limited as the patient was extremely difficult to position and winded during pictures. Best obtainable films are submitted. A triangle marker was placed inferiorly on the area of concern on the RIGHT. No underlying abnormality is seen. The glandular tissue is fatty in this area. There are no dominant masses or suspicious microcalcifications. The axillary regions were partially included and were negative. No significant masses, calcifications, or other findings are seen in either breast. IMPRESSION: INCOMPLETE: NEED ADDITIONAL IMAGING EVALUATION Limited positioning [...] she repeatedly tries to pop the skin Christianity and that it is not new. The [...] 1 year screening mammogram is recommended. Clark JONESR, [facility]/miracle:03/01/2024 09:25:26 Multiple national specialty organizations have released breast cancer screening guidelines for women at average risk for developing breast cancer - guidelines that are based on both evidence and opinion, yet differ on when to start and how often to screen for breast cancer. With representation from Breast Imaging, Internal Medicine, Women's Health, Family Medicine, and Medical/Surgical Oncology, the [facility] has carefully reviewed the data and [...] their providers when to stop screening mammograms. Global Mobility Specialist(s): Sandra Toledo, [facility]; RT Reagan(R)(M), [facility] OVERALL STUDY BIRADS: Category 2: Benign Welder Gun: Miracle Transcribe Date/Time: Mar 01 2024 8:14A Dictated by : CLARK SIM MD This examination was interpreted and the report reviewed and electronically signed by: CLARK SIM MD on Mar 01 2024 9:25AM EST [id number] CN Normal [facility] US BREAST LTD RTon 03-01 [facility] US BREAST LTD RT * * *Final Report* * * DATE OF EXAM: Mar 01 2024 9:14AM MDU 0594 - [facility] US BREAST LTD RT / PROCEDURE REASON: BREAT PAIN LEFT N64.4 * * * * Physician Interpretation * * * * #[id number] - [facility] DIAG W RAFFI LORELEI #[id number] - [facility] US BREAST LTD RT BILATERAL DIGITAL DIAGNOSTIC MAMMOGRAM TOMOSYNTHESIS WITH CAD: 03/01/2024 HISTORY: Breat Pain Left N64.4/bilat diffuse pain subareolar region, lump or cyst on right/new baseline Breat Pain Left N64.4. RESULT: TECHNIQUE: The study was acquired using full field digital technology and interpreted from soft copy. Digital Breast Tomosynthesis (DBT) images were obtained and used to assist in the interpretation of this examination. Current study was also evaluated with a Computer Aided Detection (CAD). No prior exams were available for comparison. The breasts are heterogeneously dense, which may obscure small masses. The patient presented with complaints of a lump on the RIGHT breast lower outer aspect. Attempts to obtain a diagnostic bilateral mammogram were significantly limited as the patient was extremely difficult to position and winded during pictures. Best obtainable films are submitted. A triangle marker was placed inferiorly on the area of concern on the RIGHT. No underlying abnormality is seen. The glandular tissue is fatty in this area. There are no dominant masses or suspicious microcalcifications. The axillary regions were partially included and were negative. No significant masses, calcifications, or other findings are seen in either breast. IMPRESSION: INCOMPLETE: NEED ADDITIONAL IMAGING EVALUATION Limited positioning [...] she repeatedly tries to pop the skin Christianity and that it is not new. The [...] screening mammogram is recommended. Clark Sim M.D. [facility], [facility] ch/miracle:03/01/2024 09:25:26 Multiple national specialty organizations have released breast cancer screening guidelines for women at average risk for developing breast cancer - guidelines that are based on both evidence and opinion, yet differ on when to start and how often to screen for breast cancer. With representation from Breast Imaging, Internal Medicine, Women's Health, Family Medicine, and Medical/Surgical Oncology, the [facility] has carefully reviewed the data and [...] their providers when to stop screening mammograms. Global Mobility Specialist(s): Sandra Toledo, [facility]; RT Reagan(R)(M), [facility] OVERALL STUDY BIRADS: Category 2: Benign Welder Gun: Miracle Transcribe Date/Time: Mar 01 2024 8:14A Dictated by : CLARK SIM MD This examination was interpreted and the report reviewed and electronically signed by: CLARK SIM MD on Mar 01 2024 9:25AM EST [id number] CN Normal [facility] No Panel InformationOrdered By: Cc Provider on 03-01-2024 [facility] US Breast - right limitedon 03-01-2024 * * *Final Report* * * DATE OF EXAM: Mar 01 2024 9:14AM U 0594 - [facility] US BREAST LTD RT / PROCEDURE REASON: BREAT PAIN LEFT N64.4 * * * * Physician Interpretation * * * * #[id number] - [facility] DIAG W RAFFI LORELEI #[id number] - [facility] US BREAST LTD RT BILATERAL DIGITAL DIAGNOSTIC MAMMOGRAM TOMOSYNTHESIS WITH CAD: 03/01/2024 HISTORY: Breat Pain Left N64.4/bilat diffuse pain subareolar region, lump or cyst on right/new baseline Breat Pain Left N64.4. RESULT: TECHNIQUE: The study was acquired using full field digital technology and interpreted from soft copy. Digital Breast Tomosynthesis (DBT) images were obtained and used to assist in the interpretation of this examination. Current study was also evaluated with a Computer Aided Detection (CAD). No prior exams were available for comparison. The breasts are heterogeneously dense, which may obscure small masses. The patient presented with complaints of a lump on the RIGHT breast lower outer aspect. Attempts to obtain a diagnostic bilateral mammogram were significantly limited as the patient was extremely difficult to position and winded during pictures. Best obtainable films are submitted. A triangle marker was placed inferiorly on the area of concern on the RIGHT. No underlying abnormality is seen. The glandular tissue is fatty in this area. There are no dominant masses or suspicious microcalcifications. The axillary regions were partially included and were negative. No significant masses, calcifications, or other findings are seen in either breast. [facility] RADIOLOGY Provider, [facility] [place] - 03/01/2024 * * *Final Report* * * DATE OF EXAM: Mar 01 2024 9:14AM U 0594 - [facility] US BREAST LTD RT / PROCEDURE REASON: BREAT PAIN LEFT N64.4 * * * * Physician Interpretation * * * * #[id number] [facility] DIAG W RAFFI LORELEI #[id number] [facility] US BREAST LTD RT BILATERAL DIGITAL DIAGNOSTIC MAMMOGRAM TOMOSYNTHESIS WITH CAD: 03/01/2024 HISTORY: Breat Pain Left N64.4/bilat diffuse pain subareolar region, lump or cyst on right/new baseline Breat Pain Left N64.4. RESULT: TECHNIQUE: The study was acquired using full field digital technology and interpreted from soft copy. Digital Breast Tomosynthesis (DBT) images were obtained and used to assist in the interpretation of this examination. Current study was also evaluated with a Computer Aided Detection (CAD). No prior exams were available for comparison. The breasts are heterogeneously dense, which may obscure small masses. The patient presented with complaints of a lump on the RIGHT breast lower outer aspect. Attempts to obtain a diagnostic bilateral mammogram were significantly limited as the patient was extremely difficult to position and winded during pictures. Best obtainable films are submitted. A triangle marker was placed inferiorly on the area of concern on the RIGHT. No underlying abnormality is seen. The glandular tissue is fatty in this area. There are no dominant masses or suspicious microcalcifications. The axillary regions were partially included and were negative. No significant masses, calcifications, or other findings are seen in either breast. IMPRESSION IMPRESSION: INCOMPLETE: NEED ADDITIONAL IMAGING EVALUATION Limited positioning [...] she repeatedly tries to pop the skin Christianity and that it is not new. The [...] 1 year screening mammogram is recommended. Clark IBARRA, [facility]/miracle:03/01/2024 09:25:26 Multiple national specialty organizations have released breast cancer screening guidelines for women at average risk for developing breast cancer - guidelines that are based on both evidence and opinion, yet differ on when to start and how often to screen for breast cancer. With representation from Breast Imaging, Internal Medicine, Women's Health, Family Medicine, and Medical/Surgical Oncology, the [facility] has carefully reviewed the data and [...] their providers when to stop screening mammograms. Global Mobility Specialist(s): Sandra Toledo, [facility]; Vito Schultz RT(R)(M), [facility] OVERALL STUDY BIRADS: Category 2: Benign Welder Gun: Miracle Transcribe Date/Time: Mar 01 2024 8:14A Dictated by : CLARK SIM MD This examination was interpreted and the report reviewed and electronically signed by: CLARK SIM MD on Mar 01 2024 9:25AM EST [facility] Radiology Study observation [facility]ative) [facility] SURGICAL PATH REPORTon 02-28 SURGICAL PATH REPORT [facility] Department of Pathology [address] [place] [address] Name: BHUPENDRA HEBERT : 1980 Financial [id number] Number: Gender Female Locatio SW ASC : n: Admit 43 years Attending VANDANA CUTLER Age: Provider: Ordering VANDANA CUTLER Provider: Consulti Surgical Pathology Report ng: ACCESSION: COLLECTED DATE/TIME: RECEIVED DATE/TIME: PATHOLOGIST: [id number] 02/26/2024 12:50 EDT 02/26/2024 13:22 EDT SIVAN SHELLEY MD Final Diagnosis ENDOMETRIAL CURETTINGS: - PROLIFERATIVE PHASE ENDOMETRIUM WITH STROMAL BREAKDOWN AND HEMORRHAGE. - ENDOMETRIAL POLYP FRAGMENTS PRESENT. - NO HYPERPLASIA OR MALIGNANCY SEEN SIVAN SHELLEY PATHOLOGIST (Electronic Signature) Date Verified 02/29/2024 BT Clinical Data PREOP DIAGNOSIS: AUB, DYSURIA POSTOP DIAGNOSIS: AUB, DYSURIA PROCEDURE: HYSTEROSCOPY D&C WITH MIRENA IUD PLACEMENT SPECIMEN: ENDOMETRIAL CURETTINGS Gross Description Labeled endometrial curettings. Received in formalin are multiple irregular león-pink to red feathery segments of soft tissue intermixed with mucoid/hemorrhagic material. The specimen is filtered and has a filtrate aggregate dimension of 2.5 x 2.0 x 0.5 cm. The specimen is entirely submitted in one cassette. 02/26/2024 14:32:44 EDT Microscopic Diagnosis The final diagnosis is based on a microscopic exam of premium representative sections. ____ Print 03/01/2024 09:23 EDT Number: Date/Time: [facility] Department of Pathology [address] [place] [phone] [phone] Name: BHUPENDRA HEBERT : 1980 [facility] [id number] Number: Gender Female Locatio ASC : n: Admit 43 years Attending VANDANA CUTLER Age: Provider: Ordering VANDANA CUTLER Provider: Consulti Surgical Pathology Report ng: ACCESSION: COLLECTED DATE/TIME: RECEIVED DATE/TIME: PATHOLOGIST: [id number] 02/26/2024 12:50 EDT 02/26/2024 13:22 EDT KARSTEN SPANGLER, SIVAN Microscopic Diagnosis This report was transcribed using voice recognition technology and might contain unintended computerized aircraft inspection record clerk errors. Codes CPT code: 97054 ____ Print 03/01/2024 09:23 EDT Number: Date/Time: [facility] Comment on above: Performed By: #### [id number] ####[facility] [id number] [place] [id number] Medical Director: Tae Yoder MD ACETAMINOPHEN 500 MG TABon 0 02-26-2024 ACETAMINOPHEN 500 MG TAB PRN Response En tered On: 02/26/2024 17:15 EDT Performed On: 02/26/2024 16:03 EDT by Noy Velasquez RN Intervention Information: acetaminophen Performed by Noy Velasquez RN on 02/26/2024 15:23:00 EDT acetaminophen,1000mg ORAL PRN Medication Response PRN Medication used for : Pain PRN Medication Effectiveness : Discharged PRN Response Pain Scales : Discharged Actual time of reassessment : Yes Noy Velasquez RN - 02/26/2024 17:15 EDT [facility] Comment on above: Order Comment: Ph2 , For pain level 1-3Check for other orders containing acetaminophen before administering. Max total daily amount is 4000 mg. ACETAMINOPHEN 500 MG TAB PRN Response En tered On: 02/26/2024 11:33 EDT Performed On: 02/26/2024 12:17 EDT by Jason RUCKER, Raphael Intervention Information: acetaminophen Performed by Raphael Gomez RN on 02/26/2024 11:17:00 EDT acetaminophen,1000mg ORAL PRN Medication Response PRN Medication used for : Other: per [place] protocol. Actual time of reassessment : No (not needed time is correct) Raphael Gomez RN - 02/26/2024 11:33 EDT [facility] Comment on above: Order Comment: Age l ess than 80 years old.Check for other orders containing acetaminophen before administering. Max total daily amount is 4000 mg. Anesthesiaon 02-26-2024 Anesthesia Patient: BHUPENDRA HEBERT Age: 43 years Sex: Female : 1980 Associated Diagnoses: None Author: PAGE HUITRON MD Postoperative Information Post Operative Info: Post operative day: Post Anesthesia Care Unit. Patient location: PACU. Assessment Postanesthesia assessment Vitals: Vital Signs 02/26/2024 14:00 EDT Heart Rate Monitored 99 bpm NORMAL Peripheral Pulse Rate 104 bpm HI Respiratory Rate 20 br/min NORMAL Systolic Blood Pressure 135 mmHg NORMAL Diastolic Blood Pressure 86 mmHg NORMAL SpO2 92 % LOW Oxygen Therapy Room air , stable hemodynamics, Normothermia. Mental status: at preoperative baseline. Respiratory support: normal oxygenation and ventilation. Pain: controlled. Nausea status: absence of nausea and vomiting. Postoperative hydration status: euvolemic. [facility] Anesthesia Patient: BHUPENDRA HEBERT Age: 43 years Sex: Female : 1980 Associated Diagnoses: None Author: PAGE HUITRON MD DIAGNOSIS: AUB, DYSURIA Preoperative Information Procedure/ Case: . NPO greater than 8 hours. Anesthesia history Patient's history: negative. Family's history: negative. Review of Systems ALL SYSTEMS REVIEWED: CV, PULM, GI, , NEURO, HEPATIC, HEME, ENDO, PSYCH, MS HISTORY/ROS: gerd, asthma, obesity, copd, smoker, brittany uses cpap, hl Health Status Allergies: Allergies (2) Active Severity Reaction No Known Allergies None Documented No Known Medication Allergies None Documented Current medications: Home Medications (11) Active albuterol-ipratropiu m 2.5 mg-0.5 mg/3 mL inhalation solution = DuoNeb 3 mL, Inhalation, BID albuterol-ipratropiu m 2.5 mg-0.5 mg/3 mL inhalation solution = DuoNeb 3 mL, PRN, Inhalation, [id number] atorvastatin 10 mg oral tablet 10 mg = 1 tabs, ORAL, QHS CeleBREX 100 mg oral capsule 100 mg = 1 caps, ORAL, DAILY cetirizine 10 mg oral tablet 10 mg = 1 tabs, ORAL, DAILY diphenhydrAMINE 25 mg oral capsule 25 mg = 1 caps, PRN, ORAL, QHS omega-3 polyunsaturated fatty acids ethyl esters 1000 mg oral capsule 1,000 mg = 1 caps, ORAL, DAILY pantoprazole 40 mg oral delayed release tablet 40 mg = 1 tabs, ORAL, QHS traZODone 50 mg oral tablet 50 mg = 1 tabs, ORAL, QHS venlafaxine 150 mg oral capsule, extended release 150 mg = 1 caps, ORAL, QHS venlafaxine 225 mg oral tablet, extended release 225 mg = 1 tabs, ORAL, QHS LABORATORY DATA Chemistry BMP Plus Mag No qualifying data available. Hematology CBC brief [address] No qualifying data available. Coagulation PT INR [address] No qualifying data available. Test No qualifying data available. Histories Past Medical History: Past Medical History (2) Cervical smear, as part of routine gynecological examination Procedure history: Gall bladder removal in 2013 at 34 Years. [place] tooth removal in 2006 at 27 Years. Social History Social & Psychosocial History Social History Alcohol Denies Alcohol Use Sexual Sexually active: Yes. Lesbian, pereira or homosexual Self described orientation:. Substance Abuse Denies Substance Abuse Tobacco 10 or more cigarettes (1/2 pack or more)/day in last 30 days Tobacco Use:. Cigarettes Psychosocial History No active psychosocial history has been recorded . Physical Examination VITALS Vital Signs (last value in last 48 hours) Temperature Temporal Artery: 37 degC (02/26/24 11:00:00) Respiratory Rate: 18 br/min (02/26/24 11:00:00) Peripheral Pulse Rate: 84 bpm (02/26/24 11:15:00) Heart Rate Monitored: 85 bpm (02/26/24 11:15:00) Systolic Blood Pressure: 152 mmHg High (02/26/24 11:00:00) Diastolic Blood Pressure: 85 mmHg (02/26/24 11:00:00) Mean Arterial Pressure, Cuff: 102 mmHg (02/26/24 11:00:00) SpO2: 93 % Low (02/26/24 11:15:00)Height and Weight (last value in last 48 hours) Weight Dosin kg (02/26/24 10:30:00) Weight Measured: 138 kg (02/26/24 10:30:00) General: Alert and oriented. Airway: Mallampati classification: II (soft palate, fauces, uvula visible). Respiratory: Lungs are clear to auscultation. Cardiovascular: Normal rate, Regular rhythm. Review / Management ECG interpretation: REVIEWED. Assessment and Plan [place] Society of Anesthesiologists (ASA) physical status classification: Class III. Anesthetic Preoperative Plan Premedication: None. Anesthetic technique: General anesthesia, balanced technique.. Induction: Balanced technique. Maintenance airway: Oral endotracheal tube. Special techniques: Warming device. Special monitoring: Standard ASA monitors.. Postoperative pain management: Per surgeon. Risks discussed: all listed but not limited to.. Informed consent: signed by patient. Notes: Ethnicity: Non , white Language: Cymraes Email: Refused Smoking:yes Betablocker:none. BRITTANY Preanesthesia Assessment: BRITTANY Diagnosed: Yes. CPAP or Another Device Utilized: Yes. BRITTANY Protocol Ordered (If Yes to any of the above): Yes. DNR Order: None. Normal [facility] H AND Hon 02-26-2024 Hematocrit (Bld) [Volume fraction] 45.0 % Normal 36.0-46.0 [facility] Comment on above: Performed By: #### 1 [id number] #### [facility] [address] [place] [address] Biology Specialist: Tae Yoder MD Hemoglobin (Bld) [Mass/Vol] 14.8 g/dL Normal 12.0-16.0 [facility] Comment on above: Performed By: #### 1 [id number] #### [facility] [address] [place] [address] Biology Specialist: Tae Yoder MD Inpatient Patient Summaryon 02-26-2024 Inpatient Patient Summary [facility] Discharge Instructions [address] [place] [address] (Patient Copy) Name: BHUPENDRA HEBERT : 1980 Diagnosis: 1:Thickened endometrium; 2:Abnormal bleeding in menstrual cycle; 3:BMI 50.0-59.9, adult; 4:PCOS (polycystic ovarian syndrome) Allergies: No Known Medication Allergies; No Known Allergies Registration Date: 02/26/24 [facility]#: [id number] Current Date Time: 02/26/2024 14:31:19 Address: [address] [place] [address] [place] [address] Phone: [phone] Primary Care Provider: Name: MONICA FERNANDEZ MD Phone: [phone] Thank you for choosing [facility] for your care. You are very important to us. Our goal is to demonstrate our high quality medical care and provide you with a very good patient experience. You may receive a survey about our service. Please take the time to complete the survey and return it so we can continue to enhance our service. Thank you again for allowing [facility] to care for your medical needs. If you have any questions about your care or follow up information please contact your doctor. Follow-up Instructions Radiology: If you have orders that start with a CT, MAMM, MR, NM, or US, you need to call Central Scheduling at [phone] to schedule your appointment. If you have an Xray (Imaging) ordered, these orders will start with XR, these orders are Walk-In Appointments, please select from one of the [facility] locations listed below to have your X-ray completed. No appointment is necessary. For Hours of Operation Call: [phone] COUNT INCLUDES THE [facility] [address] Orders/Registration [facility] [address] Orders/Registration [facility] [id number] [facility] My Radiology Future Orders: MAMM DIGITAL DIAG BILATERAL 12/18/2023, Routine, BREAST PAIN, pain ILQ, Ambulatory, Breast pain, left US BREAST LEFT LIMITED 12/18/2023, Routine, PAIN, pain ILQ, Ambulatory, Breast pain, left The following Appointments have been made for you: Please Note: the first letters listed in the order is the location code, followed by the appointment date, and scheduled provider Future Appointments Marly TANGELAGYTai Appt. Date: 03/09/2024 2:20 PM Scheduled Provider: Vandana Davis DO [address] [facility] [address] [place], [address] [place], [address] [place], [address] [address] [facility] [address] [place], [address] Fax: -- [address] [place], [address] Fax: -- Provider Follow Ups: With: Address: When: VANDANA DAVIS, Radiology, Obstetrics/Gynecolog y [address] [facility] [address] [place] [address] Business (1) In 2 weeks 03/11/2024 Comments: Call to schedule appointments Continue home medication as reviewed. For upset stomach, clear liquids/advance. In an emergency, go to nearest ER. If you have had an intravenous catheter (IV) during your stay, keep the dressing dry and do not remove it from the site for at least 24 hours or as instructed by your provider to prevent problems. Medication Information Only Take The Medicines On This List. Keep This List and Bring It To Your Next Appointment. Medicines To Take At Home: Medicine Name (Generic Name) Amount to Take How to Take it How Often to Take it Additional Instructions Next Dose Due atorvastatin 10 mg oral tablet (atorvastatin) 10 mg By Mouth AT BEDTIME CeleBREX 100 mg oral capsule (celecoxib) 100 mg By Mouth DAILY cetirizine 10 mg oral tablet (cetirizine) 10 mg By Mouth DAILY diphenhydrAMINE 25 mg oral capsule (diphenhydramine) 25 mg By Mouth AT BEDTIME Take as needed for insomnia/allergies omega-3 polyunsaturated fatty acids ethyl esters 1000 mg oral capsule (omega-3 polyunsaturated fatty acids) 1,000 mg By Mouth DAILY pantoprazole 40 mg oral delayed release tablet (pantoprazole) 40 mg By Mouth AT BEDTIME traZODone 50 mg oral tablet (trazodone = desyrel) 50 mg By Mouth AT BEDTIME venlafaxine 225 mg oral tablet, extended release (venlafaxine) 225 mg By Mouth AT BEDTIME takes with 150mg venlafaxine 150 mg oral capsule, extended release (venlafaxine) 150 mg By Mouth AT BEDTIME Understanding your home medicine is important to keeping you healthy. If you are taking medications that are not on the preceding list, please call your doctor to see if you are to continue taking that medication. It is important that you do not skip or make up doses. If you are ordered an antibiotic, finish ta (more content not included)... Normal [facility] OR Nursing Record - Main Monalisa n 02-26-2024 OR Nursing Record - Main OR OR Nursing Record - Main OR Summary Primary Physician: VANDANA CUTLER Finalized Date/Time: 02/26/24 13:19:26 Pt. Name: ANUPBHUPENDRA/Sex: 1980 Female Med Rec #: [id number] Physician: Financial #: [id number] Pt. Type: A Room/Bed: / Admit/Disch: 02/26/24 10:22:39 - Institution: Transport to OR - Main OR Entry 1 By Afsaneh Burgos RN, Brown Date/Time Leaving 02/26/24 12:01:00 , Barbara Castle Siderails Up? Yes Report Received From Jason RUCKER, Raphael Last Modified By: Afsaneh Burgos RN 02/26/24 12:15:43 Case Times - Main OR Entry 1 Patient In Room Time 02/26/24 12:02:00 Out Room Time 02/26/24 13:11:00 Anesthesia Facility Times Induction Time 02/26/24 12:03:00 Stop Time 02/26/24 13:10:00 [facility] Protocol Yes Completed Surgery Start Time 02/26/24 12:20:00 Stop Time 02/26/24 12:57:00 Last Modified By: Afsaneh Bugros RN 02/26/24 13:09:46 Surgical Procedures - Main OR Entry 1 Procedure Hysteroscopy Modifiers None Surgeon Procedure HYSTEROSCOPY D&C WITH Primary Procedure Yes Description MIRENA IUD PLACEMENT Primary Surgeon VANDANA CUTLER Start 02/26/24 12:20:00 Stop 02/26/24 12:57:00 Anesthesia Type General Surgical Service SN - Obstetric/Gynecology Last Modified By: Afsaneh Burgos RN 02/26/24 13:08:51 Case Attendance - Main OR Entry 1 Entry 2 Entry 3 Case Attendee VANDANA CUTLER MD, PAGE NGUYỄN, VITO Role Performed Surgeon Primary Anesthesiologist Primary Anesthesia Asst/LOOM SETTER Time In 02/26/24 12:02:00 02/26/24 12:02:00 02/26/24 12:02:00 Time Out 02/26/24 13:11:00 02/26/24 13:11:00 02/26/24 13:11:00 Procedure Hysteroscopy(None) Hysteroscopy(None) Hysteroscopy(None) Last Modified By: Aubrey RN, Afsaneh Burgos RN, Afsaneh Burgos RN, Afsaneh 02/26/24 13:09:48 02/26/24 13:09:48 02/26/24 13:09:48 Entry 4 Entry 5 Entry 6 Case Attendee Barbara Motley RN, Luba Dukes Role Performed Prestidigitator Data Warehouse Consultant Primary Scrub Primary Time In 02/26/24 12:02:00 02/26/24 12:02:00 02/26/24 12:02:00 Time Out 02/26/24 13:11:00 02/26/24 13:11:00 02/26/24 13:11:00 Procedure Hysteroscopy(None) Hysteroscopy(None) Hysteroscopy(None) Last Modified By: Afsaneh Burgos RN RN, Afsaneh Vazquez RN 02/26/24 13:09:48 02/26/24 13:09:48 02/26/24 13:09:48 General Case Data - Main OR Entry 1 Case Information OR OR 06 Schedule Type Scheduled Case Level Level 5 Wound Class Clean-Contaminated Specialty SN - ASA Class 3 Obstetric/Gynecology Procedure History Yes Documented Diagnosis Preop Diagnosis AUB, DYSURIA Postop Diagnosis AUB, DYSURIA Last Modified By: Afsaneh Burgos RN 02/26/24 12:22:44 Delays - Main OR Entry 1 Delay Reason History & Physical Description DR. DAVIS COMPLETED H & Incomplete P Last Modified By: Afsaneh Burgos RN 02/26/24 12:23:17 Patient Positioning - Main OR Entry 1 Procedure Hysteroscopy(None) Body Position Lithotomy Left Arm Position Extended on padded arm Right Arm Position Extended on padded arm board board Left Leg Position Secured in Stirrup Right Leg Position Secured in Stirrup Feet Uncrossed? Yes Press Points Checked Yes By RYLEE DO-FACOG, VANDANA Positioning Devices Padded Armboard, SCDs J, CARDOZA AA-C, VITO, Knee High, Stirrups, Barbara Motley Parisi Infinity, Safety Strap Afsaneh RUCKER Last Modified By: Afsaneh Burgos RN 02/26/24 12:24:06 Skin Prep - Main OR Entry 1 Procedure Hysteroscopy(None) Prep Area Perineal Prep Agents Betadine Solution, By Barbara Motley Betadine Scrub Hair Removal Last Modified By: Afsaneh Burgos RN 02/26/24 12:24:20 Counts Verification - Main OR Entry 1 Entry 2 Count Type Initial Final Closing Count Participants Afsaneh Burgos RN, Parisi RN, Gail, [facility], Luba [facility] Luba Count Status Correct Correct Items Counted Sponges, Sharps Sponges, Sharps Surgeon Notified n/a Yes Closing Count Correct Last Modified By: Afsaneh Burgos RN, RN, Gail 02/26/24 12:25:12 02/26/24 12:56:19 Counts Action Taken - Main OR NOT APPLICABLE Entry 1 Surgeon Notified No Count Incorrect Last Modified By: Cautery - Main OR NOT APPLICABLE Entry 1 Last Modified By: Catheters, Drains, Tubes - Main OR NOT APPLICABLE Entry 1 Last Modified By: Medication Administration - Main OR NOT APPLICABLE Entry 1 Last Modified By: Cultures & Specimens - Main OR Entry 1 Specimens Taken Routine Body Site ENDOMETRIAL CURETTINGS Last Modified By: Afsaneh Burgos RN 02/26/24 13:09:32 Skin Assessment - Main OR Entry 1 Skin Integrity at Intact Skin Abnormality at No Incision Site: Incision Site: General/Overall SKIN FOLD RASH PRESENT Skin Integrity: UNDER BREASTS AND ABDOMIN Last Modified By: Afsaneh Burgos RN 02/26/24 12:25:51 Surgical Irrigation - Main OR Entry 1 Irrigant Saline Volume In 300 Volume Out 250 Last Modified By: Afsaneh Burgos RN 02/26/24 13:16:53 Patient Care (more content not included)... Normal [facility] Operative Reporton Operative Report BHUPENDRA HEBERT :1980 Registration Date:02/26/2024 Date of Operation 02/26/2024 13:09 Indication for Surgery AUB and thickened endometrium *Preoperative Diagnosis Diagnosis: 1. Thickened endometrium Comment: Diagnosis: 2. Abnormal bleeding in menstrual cycle Comment: Diagnosis: 3. BMI 50.0-59.9, adult Comment: Diagnosis: 4. PCOS (polycystic ovarian syndrome) Comment: *Postoperative Diagnosis same Operative Procedure Location [facility] Procedure: D&C hysteroscopy and IUD insertion Surgeon: Vandana Davis DO FACOG Anesthesia: GETA Fluids: see anesthesia UOP: 50 EBL: 50 Specimen: EMC Special meds: none Indications: patient is a 43 yo morbidly obese patient with severe PCOS. She was seen in office for AUB and u/s done was difficult to confirm polyp or not due to PBH. She was consented for surgical evaluation and IUD mirena placement. R/B/A of Surgery discussed including , Bleeding, infection, blood clots and injury to the bladder, bowel, Blood vessels or ureters. Patient voices understanding and is consented for the procedure appropriately Procedure: Patient was taken to the operating room where she was prepped and draped in the normal sterile fashion in the dorsal lithotomy position. Adequate anesthesia was obtained. She desated very quickly with intubation. Once she was stable and airway secure. Procedure was begun. SCD's were in place and functioning. Red rubber catheter was used to drain the bladder for clear urine. The speculum placed and the cervix isolated. The surgery was very difficult due to PBH and anatomy. Her vaginal canal was elongated and the cervix very high and small. The instruments were not long enough to reach and visualize well. The cervix was grasped with a Allis clamp and dilated with joe dilators. After each dilator the instruments would need to be repositioned to be able to see. The hysteroscope was introduced without difficulty. The cervix was very long. Confirmed no evidence of perforation. Cavity inspected and thicken lining seen no polyp. The D&C performed without difficulty getting adequate amount of tissue. The specimen was handed off as [facility]. She was sounded to 10. The mirena was placed and strings were cut. All instruments were removed. Bleeding was minimal. Sponge, lap and needle count correct x2. Patient awakened from anesthesia and taken to the recovery room in good condition. Surgeon(s) VANDANA CUTLER (Surgeon Primary) Anesthesia MAC PAGE HUITRON MD (X Ray Developing Machine Operator) VITO SORENSEN (Provider) Estimated Blood Loss Estimated Blood Loss: 15 mL (02/26/24 13:00:00) Normal [facility] Bridal Consultant Details- Texton 02-26-2024 Bridal Consultant Details- Text Bridal Consultant Details Entered On: 02/26/2024 11:42 EDT Performed On: 02/26/2024 11:40 EDT by Raphael Gomez RN Bridal Consultant Details Transport Mode Order Detail EV : Cart Isolation Precautions RTF : History and Physical by House Physician, 02/26/2024 10:29:00 EDT, by House Physician on admit, 02/26/2024 10:29:00 EDT, Ordered Obtain Consent, 02/26/2024 10:29:00 EDT, 02/26/2024 10:29:00 EDT, Ordered Isolation Precaution Order Detail EV : NONE IV Order Detail - EV : Yes Oxygen Order Detail EV : No Order Detail EV : No Pacemaker Order Detail : 0 Bridal Consultant Details Review Status : Initial Review Nurse Collects Blood Specimens : No Raphael Gomez RN - 02/26/2024 11:40 EDT Normal [facility] Outpatient Admission Data- T exton 02-26-2024 Outpatient Admission Data- Text Outpatient Admission Data Entered On: 02/26/2024 11:41 EDT Performed On: 02/26/2024 11:40 EDT by Raphael Gomez RN OP Assessment Mobility : Ambulatory Mental Status : Alert Oriented : Person, Place, Time Pupils Equal, Round, Reactive to Light, and Accommodation : Yes Pupil Size, Left : 2 mm Pupil Size, Right : 2 mm Heart : Regular Lungs : Other: dim. Voided : Yes Abdomen : Soft Bowel Sounds All Quadrants : Present Raphael Gomez RN - 02/26/2024 11:40 EDT Present on Admission Medical Devices : None Medical Devices for Med Administration : None Raphael Gomez RN 02/26/2024 11:40 EDT Dona Coma Eye Opening Response Dona : Spontaneously Best Verbal Response Willard : Oriented Best Motor Response Dona : Obeys simple commands Willard Coma Score : 15 Raphael Gomez RN 02/26/2024 11:40 EDT Outpatient Fall Risk GEN_Fall Risk Indicators_[id number] : Medications altering equilibrium or cognitive judgement Fall Risk Band On : Yes Raphael Gomez RN 02/26/2024 11:40 EDT Screening-Safety Domestic Concerns : None Feeling Down, Depressed, Hopeless : Not at all Little Interest - Pleasure in Activities : Not at all Initial Depression Screen Score : 0 Depression Screening Score 0 : No Raphael Gomez RN 02/26/2024 11:40 EDT Normal [facility] PACU Phase I - Main [facility] PACU Phase I - Main OR PACU Phase I - Ma in OR Summary Primary Physician: VANDANA CUTLER Finalized Date/Time: 02/26/24 14:43:21 Pt. Name: ANUP BHUPENDRA Sanford/Sex: 1980 Female Med Rec #: [id number] Physician: Financial #: [id number] Pt. Type: A Room/Bed: / Admit/Disch: 02/26/24 10:22:39 - Institution: PACU I - Case Times - Main OR Entry 1 In PACU I 02/26/24 13:11:00 Ready for Transfer 02/26/24 14:01:00 Last Modified By: Lauren Sifuentes RN 02/26/24 14:43:19 Finalized By: Lauren Sifuentes RN Document Signatures Signed By: Lauren Sifuentes RN 02/26/24 14:43 Normal [facility] PACU Phase II - Main ORon PACU Phase II - Main OR PACU Phase II - Main OR Summary Primary Physician: VANDANA CUTLER Finalized Date/Time: 02/26/24 16:06:08 Pt. Name: BHUPENDRA HEBERT Juvenal/Sex: 1980 Female Med Rec #: [id number] Physician: Financial #: [id number] Pt. Type: A Room/Bed: / Admit/Disch: 02/26/24 10:22:39 - Institution: PACU II - Case Times - Main OR Entry 1 In PACU II 02/26/24 14:02:00 Ready for PACU II n/a Discharge Discharge from PACU 02/26/24 16:03:00 II Last Modified By: Noy Velasquez RN 02/26/24 16:05:37 Finalized By: Noy Velasquez RN Document Signatures Signed By: Noy Velasquez RN 02/26/24 16:05 Noy Velasquez RN 02/26/24 16:06 Normal [facility] Protocol/Pre-Proc TimeOut-Texton 02-26-2024 [facility] Protocol/Pre-Proc TimeOut-Text [facility] Protocol Entered On: 02/26/2024 11:42 EDT Performed On: 02/26/2024 11:40 EDT by Raphael Gomez RN All Procedures Procedure this U.P. is completed for: : HYSTEROSCOPY D&C WITH MIRENA IUD PLACEMENT Date/Time Pre-Procedure Verification : 02/26/2024 11:42 EDT Procedure Location : Surgery Pre-Procedure Verification : Patient Identification (Name & Date), Informed Consent (Signed, Dated), Procedure Identified by Patient, Site Identified by Patient Raphael Gomez RN - 02/26/2024 11:40 EDT Allergy (As Of: 02/26/2024 11:42:18 EDT) Allergies (Active) No Known Allergies Estimated [...] take a Beta Cruz Raphael Gomez RN - 02/26/2024 11:40 EDT Site Marking Site Marking : Procedure is Exempt From Marking Afsaneh Burgos RN - 02/26/2024 12:19 EDT Surgery / Sedation OR Procedure & Sedation Verification : History & Physical (within 30 days), Nursing Assessment Completed Relevant Images : N/A Relevant Diagnostic Tests : Relevant Diagnostic Tests Available Blood Products : N/A Implants / Equiment : Required Implants & Special Equipment Available Correct Procedure : Accurate Procedure Consent Form, Correct Procedure, Correct Patient Position Antibiotics : N/A Safety Precautions : Safety Precautions Based on Patient Medication or History Date/Time of OR Procedure Sedation Checklist : 02/26/2024 11:50 EDT Afsaneh Burgos RN - 02/26/2024 12:19 EDT Final Verification Date/Time : 02/26/2024 12:19 EDT Verification : Patient Identified (Name and Date), Correct Procedure, Site / Side Marked & Visible toTeam, All Team Members are in Agreement Laterality : N/A Afsaneh Burgos RN - 02/26/2024 12:19 EDT Normal [facility] Phone Msgotai 02-25-2024 Phone Msg - From: Sarita Bangura Sent: 02/25/2024 16:02:19 EDT Subject: TIME OF SURGERY Caller Name: BHUPENDRA HEBERT; Caller Number: H CALLED BHUPENDRA TO LET HER KNOW THAT THE SURGERY GOT PUSHED BACK, THEY CALLED HER TODAY WITH THE TIME OF ARRIVAL . Normal [facility] Phone Msgon 02-16-2024 Phone Msg - From: Sarita Bangura To: VANDANA CUTLER; Sent: 02/15/2024 10:07:57 EDT Subject: SURGERY DATE Caller Name: BHUPENDRA HEBERT; Caller Number: H Looking to see when we can get the Pt. on the schedule at the hospital. Can you do 02/26/24 after the surgery around 12:00? - From: VANDANA CUTLER To: Sarita Bangura; Sent: 02/15/2024 16:54:26 EDT Subject: RE: SURGERY DATE Caller Name: BHUPENDRA HEBERT; Caller Number: H D&c hysteroscopy. I would be done at the [facility] center by 1030. I really would not want to wait around until after noon to try and start at the hospital. Can I do a post call time on the ? or ? - From: Sarita Bangura To: VANDANA CUTLER; Sent: 02/16/2024 07:18:29 EDT Subject: RE: SURGERY DATE Caller Name: BHUPENDRA HEBERT; Caller Number: H Sounds good, I will see what I can do for the time on the , if not I will try your post call days thank you Normal [facility] Physician Progress No neeta 02-04-2024 [facility] Physician Progress Note BHUPENDRA HEBERT :1980 Registration Date:02/02/2024 Assessment/Plan This Visit Diagnosis 1. Abnormal uterine bleeding (AUB) N93.9 thickened endometrium plan for D&C hysteroscopy 2. Dysuria R30.0 BMI 60.0-69.9, adult Z68.44 Medication Reconciliation What How Much When Why Instructions Unchanged albuterol = Proventil, Ventolin (ProAir HFA 90 mcg/ inh inhalation aerosol) 2 Unknown, Respiratory (Inhalation) Unchanged albuterol-ipratropiu m (albuterol-ipratropi um 2.5 mg-0.5 mg/ 3 mL inhalation solution = DuoNeb) Unchanged atorvastatin (atorvastatin 10 mg oral tablet) TAKE 1 TABLET BY MOUTH EVERY DAY Unchanged cetirizine (ZyrTEC Liquid Gels 10 mg oral capsule) Oral Unchanged ergocalciferol = Vitamin D (ergocalciferol 1.25 mg (50,000 intl units) oral capsule = Vitamine D) Unknown Unchanged nystatin topical = Mycostatin (nystatin 100,000 units/ g topical cream) 1 Application Topical TWICE A DAY Unchanged omega-3 polyunsaturated fatty acids (omega-3 polyunsaturated fatty acids ethyl esters 1000 mg oral capsule) Oral 1 Unknown Unchanged pantoprazole (pantoprazole 40 mg oral delayed release tablet) Oral Unchanged sulfamethoxazole-tri methoprim (sulfamethoxazole-tr imethoprim 800 mg-160 mg oral tablet = Bactrim DS, Septra DS) 1 Tabs Oral EVERY TWELVE HOURS Boil of groin Duration: 7 Days Unchanged venlafaxine (venlafaxine 225 mg oral tablet, extended release) TAKE 1 TABLET BY MOUTH EVERY DAY Chief Complaint u/s f/u for AUB periods irregular History of Present Illness bmi 62 pcos appearing- she had irregular periods for years she will go 5 months without irregular for years she has risk factors for uterine cancer pap/hpv 08/20/22 negative, pap 12/18/23 neg u/s today difficult to visualize lining due to PBH appears thick but uniform appearing she has a 4cm fundal fibroid she had appendectomy recently and didn't heal well D&C hysterscopy with mirena R/B/A of Surgery discussed including , Bleeding, infection, blood clots and injury to the bladder, bowel, Blood vessels or ureters. Patient voices understanding and is consented for the procedure appropriately Physical Exam Vitals & Measurements BP: 120/70 HT: 152 cm WT: 139.7 kg BMI: 60.47 Depression Screening Scores Initial Depression Screen Score: 0 (02/02/24 13:07:00) Fall Risk Assessment Is the patient ambulatory (mobile): Yes (02/02/24 13:07:00) Have you had a fall within the past: No (02/02/24 13:07:00) Have you had 2 or more falls in the past: No (02/02/24 13:07:00) HAND BOX COVERER Additional Details Menstrual History Menstrual StatusMenarcheal HAND BOX COVERER Screening Date of Last Pap Smear12/18/23 Last Pap Result, Pt StatedNegative Last Pap Result CommentNeg HPV 08/20/22 Date of Last Mammogram, Pt [id number] per patient Last Mammography Result, Pt StatedBenign OB History History (0,0,1,0) # 1 Baby 1 Outcome Date: 2003 Outcome or Result: Spontaneous Gest Age: -- Outcome: Sex: -- Problem List/Past Medical History Ongoing Abnormal bleeding in menstrual cycle Historical Cervical smear, as part of routine gynecological examination Procedure/Surgical History Gall bladder removal: 2013 [place] tooth removal: 2006 Medications albuterol = Proventil, Ventolin(ProAir HFA 90 mcg/inh inhalation aerosol) albuterol-ipratropiu m(albuterol-ipratrop ium 2.5 mg-0.5 mg/3 mL inhalation solution = DuoNeb) atorvastatin(atorvas tatin 10 mg oral tablet) cetirizine(ZyrTEC Liquid Gels 10 mg oral capsule), ORAL ergocalciferol = Vitamin D(ergocalciferol 1.25 mg (50,000 intl units) oral capsule = Vitamine D) nystatin topical = Mycostatin(nystatin 100,000 units/g topical cream), 1 cyndi, Topical, BID omega-3 polyunsaturated fatty acids(omega-3 polyunsaturated fatty acids ethyl esters 1000 mg oral capsule), ORAL pantoprazole(pantopr azole 40 mg oral delayed release tablet), ORAL sulfamethoxazole-tri methoprim(sulfametho xazole-trimethoprim 800 mg-160 mg oral tablet = Bactrim DS, Septra DS), 1 tabs, ORAL, [id number] venlafaxine(venlafax ine 225 mg oral tablet, extended release) Allergies No Known Medication Allergies Social History Alcohol - Denies Alcohol Use Sexual Sexually active:Yes Self described orientation:Lesbian, pereira or homosexual Substance Abuse - Denies Substance Abuse Tobacco Use:10 or more cigarettes (1/2 pack or more)/day in last 30 days Type:Cigarettes Family History Breast cancer..: Aunt. Cervical cancer..: Mother. Health Status Family Member(s) Normal [facility] US TV ECHO NON OB OFFICE TELMA Felipe 02-04-2024 US TV ECHO NON OB OFFICE READ _ HAND BOX COVERER U/S TV Date: 02/02/2024 Indication: AUB irregular- BMI 60 limited scan due to PBH Uterus: 8.6 cm x 3.63 cm x 5.85 cm Endometrium: 1.37cm uniform but difficult to measure Position: anteflexed Large fibroid pedunculated 4.8cm x 5.3cm x 4.8cm Right Ovary: not visualized Left Ovary: not visualized No Free fluid in cul de sac IMPRESSION: Limited exam due to PBH- Uterus with pedunculated fibroid and mild thickened endometrium No adnexal masses No acute process Normal [facility] Comment on above: Order Comment: Order ed on [facility]# [id number] Result Comment: Tech nologist: CE Dictated By: VANDANA CUTLER Signed By: VANDANA CUTLER Transcribed: 02.04.2024 20:44 Signed Out: 02/04/24 20:44:14 Phone Msgotai 02-03-2024 Phone Msg - From: VIDYA SUNG CNP To: BHUPENDRA HEBERT Sent: 02/03/2024 16:34:54 EDT Subject: Negative Urine Bhupendra, Your urine culture was negative for infection. Be sure you are drinking plenty of water. Vidya Sung CNP Normal [facility] Ambulatory Clinical Summaryo n 02-02-2024 Ambulatory Clinical Summary BHUPENDRA HEBERT :1980 Registration Date:02/02/2024 Ambulatory Visit Instructions Your Diagnosis Abnormal uterine bleeding (AUB) Tests Performed US HYSTERSONOGRAPHY OFFICE READ -- Results Pending -- US TV ECHO NON OB OFFICE READ -- Results Pending -- You will be contacted within 72 hours with your results. Your Care Team Attending Physician - [facility], [place] Primary Care Physician - STEFFANY HERNANDEZ MD Procedures Performed Gall bladder removal (2013) [place] tooth removal (2006) Discharge Vitals Blood Pressure 120/70 Height 59.84 in (152 cm) Weight 308.04 lb (139.7 kg) BMI 60.47 Systolic Blood Pressure: 120 mmHg (02/02/24 13:07:00) Diastolic Blood Pressure: 70 mmHg (02/02/24 13:07:00) Mean Arterial Pressure: 87 mmHg (02/02/24 13:07:00) Height/Length Measured: 152 cm (02/02/24 13:07:00) Weight Measured: 139.7 kg (02/02/24 13:07:00) Body Mass Index Measured: 60.47 kg/m2 (02/02/24 13:07:00) Weight Measured - lbs2: 308 lb (02/02/24 13:07:00) Height/Length Measured - in2: 59.84 in (02/02/24 13:07:00) Body Mass Index Measured English2: 60.47 kg/m2 (02/02/24 13:07:00) BSA: 2.43 m2 (02/02/24 13:07:00) Ht/Wt Measurement Refused by Patient?2: No (02/02/24 13:07:00) What to do next Scheduled Follow-Up Appointments No results Medications What How Much When Why Instructions Unchanged albuterol = Proventil, Ventolin (ProAir HFA 90 mcg/ inh inhalation aerosol) 2 Unknown, Respiratory (Inhalation) Unchanged albuterol-ipratropiu m (albuterol-ipratropi um 2.5 mg-0.5 mg/ 3 mL inhalation solution = DuoNeb) Unchanged atorvastatin (atorvastatin 10 mg oral tablet) TAKE 1 TABLET BY MOUTH EVERY DAY Unchanged cetirizine (ZyrTEC Liquid Gels 10 mg oral capsule) Oral Unchanged ergocalciferol = Vitamin D (ergocalciferol 1.25 mg (50,000 intl units) oral capsule = Vitamine D) Unknown Unchanged nystatin topical = Mycostatin (nystatin 100,000 units/ g topical cream) 1 Application Topical TWICE A DAY Unchanged omega-3 polyunsaturated fatty acids (omega-3 polyunsaturated fatty acids ethyl esters 1000 mg oral capsule) Oral 1 Unknown Unchanged pantoprazole (pantoprazole 40 mg oral delayed release tablet) Oral Unchanged sulfamethoxazole-tri methoprim (sulfamethoxazole-tr imethoprim 800 mg-160 mg oral tablet = Bactrim DS, Septra DS) 1 Tabs Oral EVERY TWELVE HOURS Boil of groin Duration: 7 Days Unchanged venlafaxine (venlafaxine 225 mg oral tablet, extended release) TAKE 1 TABLET BY MOUTH EVERY DAY Allergies No Known Medication Allergies Problems Ongoing - Any problem that you are currently receiving treatment for. Abnormal bleeding in menstrual cycle Cervical smear, as part of routine gynecological examination Common Emergency Awareness Tips IS IT A STROKE? Act FAST and Check for these signs: FACE Does the face look uneven? ARM Does one arm drift down? SPEECH Does their speech sound strange? TIME Call at any sign of stroke Heart Attack Signs Chest discomfort: Most heart attacks involve discomfort in the center of the chest and lasts more than a few minutes, or goes away and comes back. It can feel like uncomfortable pressure, squeezing, fullness or pain. Discomfort in upper body: Symptoms can include pain or discomfort in one or both arms, back, neck, jaw or stomach. Shortness of breath: With or without discomfort. Other signs: Breaking out in a cold sweat, nausea, or lightheaded. Remember, MINUTES DO MATTER. If you experience any of these heart attack warning signs, call to get immediate medical attention! Normal [facility] Comprehensive Intake - Texto n 02-02-2024 Comprehensive Intake - Text Comprehensive Intake Entered On: 02/02/2024 13:08 EDT Performed On: 02/02/2024 13:07 EDT by Vito Boykin MA Summary Chief Complaint : u/s f/u for AUB periods irregular Vito Boykin MA - 02/02/2024 13:11 EDT Bladder Control Issues? : No Urine Leakage? : No Presence or absence of urinary incontinence assessed : Yes CPT-II Medication list doc'd in medical record : Yes Influenza immunization administered or previously received : No Pneumococcal vaccine administered or previously received : No Vito Boykin MA - 02/02/2024 13:07 EDT Measurements Weight Measured : 139.7 kg(Converted to: 308 lb 0 oz, 307.986 lb) Body Mass Index Measured : 60.47 kg/m2 Body Mass Index documented : Yes Weight Measured - lbs : 308 lb(Converted to: 308 lb 0 oz, 140 kg) Body Mass Index Measured Cymraes : 60.47 kg/m2 BSA Cymraes : 2.43 m2 Vito Boykin MA - 02/02/2024 13:15 EDT Ht/Wt Measurement Refused by Patient? : No Height/Length Measured : 152 cm(Converted to: 5 ft 0 in, 59.84 in) Height/Length Measured - in : 59.84 in(Converted to: 5 ft 0 in, 152 cm) Vito Boykin MA - 02/02/2024 13:07 EDT Vitals Require BP : Yes Systolic Blood Pressure : 120 mmHg Diastolic Blood Pressure : 70 mmHg Mean Arterial Pressure : 87 mmHg Last Systolic BP : less than 130 mmHg Last Diastolic BP : less than 80 mmHg Pain Present : No actual or suspected pain Pain : 0 Pain severity quantified : No pain present Vito Boykin MA - 02/02/2024 13:11 EDT Infection Screening Travel outside of [facility] within past 21 days? : No Positive COVID test in the last 10 days? : No Exposure to and/or close contact with a person who has a laboratory-confirmed COVID test within the last 48 hours. : No Coronavirus New Symptoms w/o Cause : No Vito Boykin MA - 02/02/2024 13:07 EDT Depression Screening Is patient currently : None of the Below Feeling Down, Depressed, Hopeless : Not at all Little Interest - Pleasure in Activities : Not at all Initial Depression Screen Score : 0 Depression Screening Score 0 : No Vito Boykin MA - 02/02/2024 13:07 EDT Falls Risk Assessment Is the patient ambulatory (mobile) : Yes Have you had 2 or more falls in the past year : No Have you had a fall within the past year that has caused an injury : No Patient screen for fall risk : no falls in last year OR 1 fall with no injury in last year Vito Boykin MA - 02/02/2024 13:07 EDT Normal [facility] HAND BOX COVERER Visit - [employer] HAND BOX COVERER Visit - Text HAND BOX COVERER Visit Entered On: 02/02/2024 13:16 EDT Performed On: 02/02/2024 13:15 EDT by Vito Boykin MA HAND BOX COVERER Menstrual History Menstrual Status : Menarcheal Vito Boykin MA - 02/02/2024 13:15 EDT HAND BOX COVERER Screenings Date of Last Pap Smear : 12/18/23 Last Pap Result : Negative Vito Boykin MA - 02/02/2024 13:15 EDT Last Pap Result Comment : Neg HPV 08/20/22 Vito Boykin MA - 02/02/2024 13:16 EDT Date of Last Mammogram : 2004- per patient Last Mammography Result : Benign Vito Boykin MA - 02/02/2024 13:15 EDT Normal [facility] UA DIP, URINE (POC)on 2023 BILIRUBIN UA (POCT) Negative Negative [facility] CLARITY UA (POCT) Slightly Cloudy Cl [facility] COLOR UA (POCT) Dark yellow [facility] GLUCOSE UA (POCT) Negative Negative mg/dL [facility] Hemoglobin Ql (U) Negative Negative [facility] Interpretation and review of laboratory results Abnormal [facility] KETONE UA (POCT) Negative Negative mg/dL [facility] LEUKOCYTES UA (POCT) [facility] NITRITE UA (POCT) Negative Negative [facility] PH UA (POCT) 7.0 4.5 - 8.0 [facility] Protein Ql (U) 30 mg/dL Abnormal Negative [facility] SPECIFIC GRAVITY UA (POCT) 1.020 1.005 - 1.030 [facility] UROBILINOGEN UA (POCT) 1.0 [facility] [facility] E.U./dL [facility] Location:Replaced By [facility], [address] [place] [address], [address] [place] [address] POINT OF CARE [facility] THIN PREP IMAGE SEND OUTon 0 12-23-2023 THINPREP TIS PAP SEE COMMENT Normal [facility] Comment on above: Order Comment: Order ed on Fin# [id number] Result Comment: THIN PREP TIS PAP Lab: [id number] CLINICAL INFORMATION: None given LMP: None given prev. Pap: None given prev. Bx: None given SOURCE: None given STATEMENT OF ADEQUACY: Satisfactory for evaluation. Endocervical/transformation zone component absent. INTERPRETATION/RESULT: Cytology Results: Negative for intraepithelial lesion or malignancy. COMMENT: This Pap test has been evaluated with computer assisted technology. TIG WELDER: EMMA MCCONNELL(ASCP) CT screening location: [place] [address]. For questions contact Anatomic Pathology Client Services at [phone] EXPLANATORY NOTE: The Pap is a screening test for cervical cancer. It is not a diagnostic test and is subject to false negative and false positive results. It is most reliable when a satisfactory sample, regularly obtained, is submitted with relevant clinical findings and history, and when the Pap result is evaluated along with historic and current clinical information. PERFORMING SITE: [facility] [address] [address] Security Vehicle Patrol Officer: ABEBA ALEJO MD, CLIA: [id number] Performed By: #### C [id number] #### [facility] [address] [place] [address] Biology Specialist: Tae Yoder MD ESTRADIOLon 12-21-2023 ESTRADIOL 179 pg/mL Normal [facility] Comment on above: Order Comment: Order ed on Fin# [id number] Result Comment: INTERPRETIVE INFORMATION: Estradiol by Immunoassay This immunoassay is not recommended when low estradiol concentrations, such as those found in children, cisgender males, and postmenopausal females, are expected, or for monitoring antiestrogen (e.g., aromatase inhibitor) therapy. The preferred estradiol test in these cases is Estradiol (Adult Males, Children, Postmenopausal Females, or Individuals on Estrogen-Suppressing Hormone Therapy) (BookiooUP test code 0808363). No reference intervals have been established for prepubertal females or for cisgender males. For a complete set of all established reference intervals, refer to [email or web address].Styloola.SaveUp/Tests/Pub/[id number]. Estradiol by Immunoassay, Adult Premenopausal Female Follicular phase .........27-122 pg/mL Mid Cycle phase ..........95-433 pg/mL Luteal Phase .............49-291 pg/mL Post-Menopausal ....Less than 41 pg/mL Performed By: [facility] [address] [place] [address] Security Vehicle Patrol Officer: Manuel Ann MD, PhD CLIA Number: [id number] Performed By: #### 1 [id number] ####[facility] [id number] [place] [address] Medical Director: Tae Yoder MD Phone Msgon 12-21-2023 Phone Msg - From: Susana Ndiaye Sent: 12/21/2023 11:56:26 EDT Subject: Contaminated UCX Caller Name: BHUPENDRA HEBERT; Caller Number: H When patient was in office for annual, she was tested for a UTI. UCX came back contaminated. Patient called and made aware. Advised that if she was still experiencing UTI symptoms after completing bactrim (for boil), she could come in to the office to leave another urine samples. No further questions. Normal [facility] C URINEon 12-20-2023 C URINE [facility] [address] [place] [id number] Name: BHUPENDRA HEBERT : 1980 Admitting Provider: Gender Female [facility] [id number] : Number: [facility]. n: Admit 12/18/2023 Date: Discharge 12/18/2023 Microbiology Date: PROCEDURE: C URINE [] SOURCE: CLEAN CATCH BODY SITE: COLLECTED DATE/TIME: 12/18/2023 14:51 EDT RECEIVED DATE/TIME: 12/18/2023 19:04 EDT START DATE/TIME: 12/18/2023 19:04 EDT FREE TEXT SOURCE: ORDERING PHYSICIAN: VIDYA SUNG CNP FINAL REPORTS Final Report [] Verified Date/Time: 12/20/2023 09:16 EDT Three or more bacterial species were isolated from urine indicating superficial or fecal contamination. Submission of another specimen is requested. If clinically indicated ____ L=Low, H= High, *= Abnormal, C=Critical, f=Footnote, c=Corrected, i=Interp Data Name: BHUPENDRA HEBERT Print 12/21/2023 11:51 EDT Date/Time: Normal [facility] Comment on above: Performed By: #### 1 [id number] #### [facility] [address] [place] [address] Biology Specialist: Tae Yoder MD AMB Urinalysis Dipstick POC [id number] 12-18-2023 AMB Urinalysis Dipstick POC [id number] Urine Dipstick Entered On: 12/18/2023 14:20 EDT Performed On: 12/18/2023 14:18 EDT by Susana Ndiaye Urine Dipstick Urine Color Urine Dipstick : Dark yellow Urine Appearance Urine Dipstick : Slightly cloudy Glucose Urine Dipstick : Negative Bilirubin Urine Dipstick : Negative Ketones Urine Dipstick : Negative Specific [place] Urine Dipstick : 1.015 Blood Urine Dipstick : Negative pH Urine Dipstick : 7 Protein Urine Dipstick : 1+ (30 mg/dl) Urobilinogen Urine Dipstick : 0.2 mg/dl Nitrite Urine Dipstick : Negative Leukocytes Urine Dipstick : Negative Susana Ndiaye - 12/18/2023 14:18 EDT Normal [facility] Physician Progress No neeta 12-18-2023 [facility] Physician Progress Note BHUPENDRA HEBERT :1980 Registration Date:12/18/2023 Assessment/Plan This Visit Diagnosis 1. Cervical smear, as part of routine gynecological examination Z01.419 reflex pap exercise/weight loss current with PCP f/u annually Ordered: AMB Preventive Est Age 40-64 [address], 12/18/2023 15:13:00 EDT, Cervical smear, as part of routine gynecological examination / Dysuria / Abnormal bleeding in menstrual cycle / Hot flashes / Boil of groin / Breast pain, left AMB Venipuncture [id number], 12/18/2023 14:55:00 EDT, Cervical smear, as part of routine gynecological examination / Dysuria / Screening mammogram, encounter for / Abnormal bleeding in menstrual cycle / Hot flashes / Boil of groin / Breast pain, left, 1 GP Thin Prep Reflex HPV, ROUTINE, 12/18/2023, Specimen type: HAND BOX COVERER Spec, Dx: Cervical smear, as part of routine gynecological examination THIN PREP IMAGE SEND OUT, ROUTINE, 12/18/2023, Specimen type: HAND BOX COVERER Spec, Cervix, Dx: Cervical smear, as part of routine gynecological examination 2. Dysuria R30.0 send urine culture Bactrim sent already due to skin boil Ordered: AMB Preventive Est Age 40-64 03011, 12/18/2023 15:13:00 EDT, Cervical smear, as part of routine gynecological examination / Dysuria / Abnormal bleeding in menstrual cycle / Hot flashes / Boil of groin / Breast pain, left AMB Urinalysis Dipstick POC [id number], 12/18/2023 14:17:00 EDT, Dysuria AMB Venipuncture [id number], 12/18/2023 14:55:00 EDT, Cervical smear, as part of routine gynecological examination / Dysuria / Screening mammogram, encounter for / Abnormal bleeding in menstrual cycle / Hot flashes / Boil of groin / Breast pain, left, 1 C URINE(URINE CULTURE), ROUTINE, 12/18/2023, Specimen type: CLEAN CATCH, Dysuria, [id number], Dysuria 3. Abnormal bleeding in menstrual cycle N92.6 Has U/S scheduled for 12/22/23 labs today discussed may need EMB/SIS Reviewed may need hormones to regulate Ordered: AMB Preventive Est Age 40-64 90[address], 12/18/2023 15:13:00 EDT, Cervical smear, as part of routine gynecological examination / Dysuria / Abnormal bleeding in menstrual cycle / Hot flashes / Boil of groin / Breast pain, left AMB Venipuncture [id number], 12/18/2023 14:55:00 EDT, Cervical smear, as part of routine gynecological examination / Dysuria / Screening mammogram, encounter for / Abnormal bleeding in menstrual cycle / Hot flashes / Boil of groin / Breast pain, left, 1 ESTRADIOL, ROUTINE, 12/18/2023, Order for future visit-Diagnosis required, Dx: Abnormal bleeding in menstrual cycle / Hot flashes FSH, ROUTINE, 12/18/2023, Order for future visit-Diagnosis required, Dx: Abnormal bleeding in menstrual cycle / Hot flashes FT4(FREE T4), ROUTINE, 12/18/2023, Order for future visit-Diagnosis required, Dx: Abnormal bleeding in menstrual cycle / Hot flashes PROLACTIN, ROUTINE, 12/18/2023, Order for future visit-Diagnosis required, Dx: Abnormal bleeding in menstrual cycle / Hot flashes TSH, ROUTINE, 12/18/2023, Order for future visit-Diagnosis required, Dx: Abnormal bleeding in menstrual cycle / Hot flashes 4. Hot flashes R23.2 labs Ordered: AMB Preventive Est Age 40-64 [address], 12/18/2023 15:13:00 EDT, Cervical smear, as part of routine gynecological examination / Dysuria / Abnormal bleeding in menstrual cycle / Hot flashes / Boil of groin / Breast pain, left AMB Venipuncture [id number], 12/18/2023 14:55:00 EDT, Cervical smear, as part of routine gynecological examination / Dysuria / Screening mammogram, encounter for / Abnormal bleeding in menstrual cycle / Hot flashes / Boil of groin / Breast pain, left, 1 ESTRADIOL, ROUTINE, 12/18/2023, Order for future visit-Diagnosis required, Dx: Abnormal bleeding in menstrual cycle / Hot flashes FSH, ROUTINE, 12/18/2023, Order for future visit-Diagnosis required, Dx: Abnormal bleeding in menstrual cycle / Hot flashes FT4(FREE T4), ROUTINE, 12/18/2023, Order for future visit-Diagnosis required, Dx: Abnormal bleeding in menstrual cycle / Hot flashes PROLACTIN, ROUTINE, 12/18/2023, Order for future visit-Diagnosis required, Dx: Abnormal bleeding in menstrual cycle / Hot flashes TSH, ROUTINE, 12/18/2023, Order for future visit-Diagnosis required, Dx: Abnormal bleeding in menstrual cycle / Hot flashes 5. Boil of groin L02.224 scant bloody drainage noted silvestre boil at home Bactrim rx sent Ordered: sulfamethoxazole-tri methoprim(sulfametho xazole-trimethoprim 800 mg-160 mg oral tablet = Bactrim DS, Septra DS), 1 tabs, ORAL, [id number] AMB Preventive Est Age 40-64 [address], 12/18/2023 15:13:00 EDT, Cervical smear, as part of routine gynecological examination / Dysuria / Abnormal bleeding in menstrual cycle / Hot flashes / Boil of groin / Breast pain, left AMB Venipuncture [id number], 12/18/2023 14:55:00 EDT, Cervical smear, as part of routine gynecological examination / Dysuria / Screening mammogram, encounter for / Abnormal bleeding in menstrual cycle / Hot flashes / Boil of groin / Breast pain, left, 1 6. Breast pain (more content not included)... Normal [facility] Ambulatory Clinical Summaryo n 12-18-2023 Ambulatory Clinical Summary BHUPENDRA HEBERT :1980 Registration Date:12/18/2023 Ambulatory Visit Instructions Your Diagnosis Cervical smear, as part of routine gynecological examination Dysuria Abnormal bleeding in menstrual cycle Hot flashes Boil of groin Breast pain, left Tests Performed AMB Urinalysis Dipstick POC [id number] Your Care Team Attending Physician - VIDYA SUNG CNP Primary Care Physician - STEFFANY HERNANDEZ MD Procedures Performed Gall bladder removal (2013) [place] tooth removal (2006) Discharge Vitals Blood Pressure 128/66 Height 59.84 in (152 cm) Weight 309.58 lb (140.4 kg) BMI 60.77 Systolic Blood Pressure: 128 mmHg (12/18/23 13:53:00) Diastolic Blood Pressure: 66 mmHg (12/18/23 13:53:00) Mean Arterial Pressure: 87 mmHg (12/18/23 13:53:00) Height/Length Measured: 152 cm (12/18/23 13:53:00) Weight Measured: 140.4 kg (12/18/23 13:53:00) Body Mass Index Measured: 60.77 kg/m2 (12/18/23 13:53:00) Ht/Wt Measurement Refused by Patient?2: No (12/18/23 13:53:00) Last Menstrual Period: 10/26/23 (12/18/23 13:53:00) Last Menstrual Period: 10/26/23 (12/18/23 13:53:00) What to do next Scheduled Follow-Up Appointments Appointment Type Reason for visit Day With Date Time Where [facility] - IRREGULAR PERIODS Thursday Ultrasound - [facility] December 22, 2023 11:20 am EDT [facility] [address] [place] [address] Road [address] [facility] ZIP:[id number] Established Patient IRREGULAR PERIODS Thursday Fermin Bentley MD December 22, 2023 11:40 [facility] [address] [place] [id number] [address] [facility] ZIP:[id number] You Need to Schedule the Following Appointments C URINE(URINE CULTURE), ROUTINE, 12/18/2023, Specimen type: CLEAN CATCH, Dysuria, [id number], Dysuria ESTRADIOL, ROUTINE, 12/18/2023, Order for future visit-Diagnosis required, Dx: Abnormal bleeding in menstrual cycle / Hot flashes FSH, ROUTINE, 12/18/2023, Order for future visit-Diagnosis required, Dx: Abnormal bleeding in menstrual cycle / Hot flashes FT4(FREE T4), ROUTINE, 12/18/2023, Order for future visit-Diagnosis required, Dx: Abnormal bleeding in menstrual cycle / Hot flashes PROLACTIN, ROUTINE, 12/18/2023, Order for future visit-Diagnosis required, Dx: Abnormal bleeding in menstrual cycle / Hot flashes TSH, ROUTINE, 12/18/2023, Order for future visit-Diagnosis required, Dx: Abnormal bleeding in menstrual cycle / Hot flashes MAMM DIGITAL DIAG BILATERAL, 12/18/2023, Routine, BREAST PAIN, pain ILQ, Ambulatory, Breast pain, left US BREAST LEFT LIMITED, 12/18/2023, Routine, PAIN, pain ILQ, Ambulatory, Breast pain, left Medications What How Much When Why Instructions New sulfamethoxazole-tri methoprim (sulfamethoxazole-tr imethoprim 800 mg-160 mg oral tablet = Bactrim DS, Septra DS) 1 Tabs Oral EVERY TWELVE HOURS Boil of groin Duration: 7 Days Pickup at [facility] Unchanged albuterol = Proventil, Ventolin (ProAir HFA 90 mcg/ inh inhalation aerosol) 2 Unknown, Respiratory (Inhalation) Contact prescribing physician if questions or concerns Unchanged albuterol-ipratropiu m (albuterol-ipratropi um 2.5 mg-0.5 mg/ 3 mL inhalation solution = DuoNeb) Contact prescribing physician if questions or concerns Unchanged atorvastatin (atorvastatin 10 mg oral tablet) TAKE 1 TABLET BY MOUTH EVERY DAY Contact prescribing physician if questions or concerns Unchanged cetirizine (ZyrTEC Liquid Gels 10 mg oral capsule) Oral Contact prescribing physician if questions or concerns Unchanged ergocalciferol = Vitamin D (ergocalciferol 1.25 mg (50,000 intl units) oral capsule = Vitamine D) Unknown Contact prescribing physician if questions or concerns Unchanged nystatin topical = Mycostatin (nystatin 100,000 units/ g topical cream) 1 Application Topical TWICE A DAY Contact prescribing physician if questions or concerns Unchanged omega-3 polyunsaturated fatty acids (omega-3 polyunsaturated fatty acids ethyl esters 1000 mg oral capsule) Oral 1 Unknown Contact prescribing physician if questions or concerns Unchanged pantoprazole (pantoprazole 40 mg oral delayed release tablet) Oral Contact prescribing physician if questions or concerns Unchanged venlafaxine (venlafaxine 225 mg oral tablet, extended release) TAKE 1 TABLET BY MOUTH EVERY DAY Contact prescribing physician if questions or concerns Pharmacy Information [facility]: [address], [place] [id number] [phone] What How Much When Comments Stop Taking dextromethorphan-gua ifenesin Oral Stop Taking ferrous sulfate ( iron ) Oral Stop Taking prazosin (Minipress) Oral THREE TIMES A DAY Stop Taking prazosin (Minipress) Oral THREE TIMES A DAY Test Results AMB Urinalysis Dipstick POC [id number] (12/18/2023) Urine Appearance Urine Dipstick - Slightly cloudy Bilirubin Urine Dipstick - Negative Blood Urine Dipstick - Negative Glucose Urine Dipstick - Negative Ketones Urine Dips (more content not included)... Normal [facility] Comprehensive Intake - Texto n 12-18-2023 Comprehensive Intake - Text Comprehensive Intake Entered On: 12/18/2023 13:53 EDT Performed On: 12/18/2023 13:53 EDT by Susana Ndiaye Summary Last Menstrual Period : 10/26/2023 EDT Menstrual Status : Menarcheal Susana Ndiaye - 12/18/2023 14:01 EDT Chief Complaint : Here for annual- Believes she may have a UTI. Has been having burning with urination and vaginal pain for the last month. Are of concern with LEFT breast LMP: 10/26/23 (lasted 2 weeks), and then skipped last month Susana Ndiaye - 12/18/2023 14:25 EDT Bladder Control Issues? : No Urine Leakage? : No Presence or absence of urinary incontinence assessed : Yes CPT-II Medication list doc'd in medical record : Yes Influenza immunization administered or previously received : No Pneumococcal vaccine administered or previously received : No Susana Ndiaye - 12/18/2023 13:53 EDT Measurements Weight Measured : 140.4 kg(Converted to: 309 lb 8 oz, 309.529 lb) Body Mass Index Measured : 60.77 kg/m2 Body Mass Index documented : Yes Susana Ndiaye - 12/18/2023 13:56 EDT Ht/Wt Measurement Refused by Patient? : No Height/Length Measured : 152 cm(Converted to: 5 ft 0 in, 59.84 in) Susana Ndiaye - 12/18/2023 13:53 EDT Vitals Require BP : Yes Systolic Blood Pressure : 128 mmHg Diastolic Blood Pressure : 66 mmHg Mean Arterial Pressure : 87 mmHg Last Systolic BP : less than 130 mmHg Last Diastolic BP : less than 80 mmHg Pain Present : No actual or suspected pain Pain : 0 Pain severity quantified : No pain present Susana Ndiaye - 12/18/2023 14:01 EDT Infection Screening Travel outside of [place] within past 21 days? : No Positive COVID test in the last 10 days? : No Exposure to and/or close contact with a person who has a laboratory-confirmed COVID test within the last 48 hours. : No Coronavirus New Symptoms w/o Cause : No Susana Ndiaye 12/18/2023 13:53 EDT Depression Screening Is patient currently : None of the Below Feeling Down, Depressed, Hopeless : Not at all Little Interest - Pleasure in Activities : Not at all Initial Depression Screen Score : 0 Depression Screening Score 0 : No Marianela Ndiayegail - 12/18/2023 14:01 EDT Falls Risk Assessment Is the patient ambulatory (mobile) : Yes Have you had 2 or more falls in the past year : No Have you had a fall within the past year that has caused an injury : No Patient screen for fall risk : no falls in last year OR 1 fall with no injury in last year Susana Ndiaye - 12/18/2023 13:53 EDT Normal [facility] FSHon 12-18-2023 FSH 7.7 IU/L Normal [facility] Comment on above: Order Comment: Order ed on Fin# [id number] Result Comment: Fema les: Normally menstruating Follicular Phase 2.5 ? 10.2 IU/L Mid-cycle Peak 3.4 ? 33.4 IU/L Luteal Phase 1.5 ? 9.1 IU/L <0.3 IU/L Post-Menopausal 23.0 ? 116.3 IU/L Males (13-70 years) 1.4 ? 18.1 IU/L Performed By: #### 1 [id number], [id number] ####[facility] [id number] [place] [address] Medical Director: Tea Yoder MD FT4on 12-18-2023 Free T4 [Mass/Vol] 0.95 ng/dL Normal 0.89-1.76 [facility] Comment on above: Order Comment: Order ed on Fin# [id number] Result Comment: - Th e anticonvulsant drug phenytoin may interfere with total and free T4 levels due to competition for TBG binding sites - Free T4 values may be decreased in patients with non-thyroidal conditions and in patients taking carbamazepine Performed By: #### 1 [id number], [id number], [id number] #### [facility] [address] [id number] Biology Specialist: Tae Yoder MD HAND BOX COVERER Visit - [employer] HAND BOX COVERER Visit - Text HAND BOX COVERER Visit Entered On: 12/18/2023 13:53 EDT Performed On: 12/18/2023 13:53 EDT by Susana Ndiaye HAND BOX COVERER Menstrual History Last Menstrual Period : 10/26/2023 EDT Susana Ndiaye - 12/18/2023 14:06 EDT Menstrual Status : Menarcheal Susana Ndiaye - 12/18/2023 13:53 EDT HAND BOX COVERER Screenings Date of Last Mammogram : 2004- per patient Last Mammography Result : Benign Susana Ndiaye - 12/18/2023 14:06 EDT Date of Last Pap Smear : 08/20/22 Last Pap Result : Negative Last Pap Result Comment : Neg HPV Susaan Ndiaye - 12/18/2023 13:53 EDT Contraception Contraception Method : None Susana Ndiaye - 12/18/2023 13:53 EDT Normal [facility] PROLACTINon 12-18-2023 PROLACTIN 12.2 ng/mL Normal [facility] Comment on above: Order Comment: Order ed on Fin# [id number] Result Comment: Fema les: Non 2.8-29.2 ng/mL 9.7- greater than 200 ng/mL Postmenopausal 1.8-20.3 ng/mL Males 2.1-17.7 ng/mL - , , and the administration of oral contraceptives can increase prolactin concentrations Performed By: #### 1 [id number], [id number], [id number], [id number] #### [facility] [address] [place], [place] [id number] Biology Specialist: Tae Yoder MD Phone Msgotai 12-18-2023 Phone Msg - From: Kellie Wong To: Jena Lam; Sent: 12/18/2023 15:00:37 EDT 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 SHE STATED INSURANCE WILL COVER 2 MORE PAIRS FOR HER AND SHE WOULD LIKE THE MATERNITY PANTY HOSE ONES THAT HAVE 20-30 ML OF MERCURY. 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 Bhupendra is not Normal [facility] TSHon 12-18-2023 TSH Qn 2.12 m[IU]/L Normal 0.55-4.78 [facility] Comment on above: Order Comment: Order ed on Fin# [id number] Result Comment: - Do not use samples that contain fluorescein. Fluorescein levels > 0.24 ?g/mL may decrease results in this assay - Patients undergoing retinal fluorescein angiography can retain amounts of fluorescein in the body for up to 48?72 hours post-treatment. Such samples can produce falsely depressed values when tested with this assay, and should not be tested Reference Intervals (if applicable): First trimester: 0.6-3.4 uIU/mL Second trimester: 0.37-3.6 uIU/mL Third trimester: 0.38-4.04 uIU/mL Reference: [email or web address] (04/2023) Performed By: #### 1 [id number], [id number] #### [facility] [address] [place] [id number] Biology Specialist: Tae Yoder MD Vital Signs Date Time Vital Sign Value Performing Clinician Facility 03-29-2025 14:08-0400 Body height 152.[address] Hilda Holley DO Work Phone: [facility] 03-29-2025 14:08-0400 Body mass index (BMI) [Ratio] 64.8 kg/m2 Dr. Hilda Holley DO Work Phone: [facility] 03-29-2025 14:08-0400 Body weight 150.[address] Hilda Holley DO Work Phone: [facility] 03-29-2025 14:08-0400 Diastolic blood pressure 75 mm[Hg] Dr. Hilda Holley DO Work Phone: [facility] 03-29-2025 14:08-0400 Heart rate 76 /min Dr. Hilda Holley DO Work Phone: [facility] 03-29-2025 14:08-0400 Respiratory rate 18 /min Dr. Hilda Holley DO Work Phone: [facility] 03-29-2025 14:08-0400 Systolic blood pressure 120 mm[Hg] Dr. Hilda Holley DO Work Phone: [facility] 03-14-2025 13:53-0400 Body temperature 97.1 [degF] Dr. Hilda Holley DO Work Phone: [facility] 03-14-2025 13:53-0400 Diastolic blood pressure 84 mm[Hg] Dr. Hilda Holley DO Work Phone: [facility] 03-14-2025 13:53-0400 Heart rate 74 /min Dr. Hilda Holley DO Work Phone: [facility] 03-14-2025 13:53-0400 Respiratory rate 20 /min Dr. Hilda Holley DO Work Phone: [facility] 03-14-2025 13:53-0400 Systolic blood pressure 163 mm[Hg] Dr. Hilda Holley DO Work Phone: [facility] 02-28-2025 13:55-0400 Body mass index (BMI) [Ratio] 62.4 kg/m2 Dr. Froylan Palmer MD Work Phone: [facility] 02-28-2025 13:55-0400 Body temperature 98 [degF] Dr. Froylan Palmer MD Work Phone: [facility] 02-28-2025 13:55-0400 Diastolic blood pressure 78 mm[Hg] Dr. Froylan Palmer MD Work Phone: [facility] 02-28-2025 13:55-0400 Heart rate 74 /min Dr. Froylan Palmer MD Work Phone: [facility] 02-28-2025 13:55-0400 Respiratory rate 18 /min Dr. Froylan Palmer MD Work Phone: [facility] 02-28-2025 13:55-0400 Systolic blood pressure 147 mm[Hg] Dr. Froylan Palmer MD Work Phone: [facility] 02-21-2025 15:47-0400 Body mass index (BMI) [Ratio] 58.51 kg/m2 Akilah Wiggins ROCKET ENGINE TESTER.SWITCHBOARD AND CONTROL ROOM OPERATOR Work Phone: [facility] 02-21-2025 15:47-0400 Body weight 147 kg Akilah Wiggins ROCKET ENGINE TESTER.SWITCHBOARD AND CONTROL ROOM OPERATOR Work Phone: [facility] 02-21-2025 15:47-0400 Diastolic blood pressure 77 mm[Hg] Akilah Wiggins ROCKET ENGINE TESTER.SWITCHBOARD AND CONTROL ROOM OPERATOR Work Phone: [facility] 02-21-2025 15:47-0400 Heart rate 89 /min Akilah Wiggins ROCKET ENGINE TESTER.SWITCHBOARD AND CONTROL ROOM OPERATOR Work Phone: [facility] 02-21-2025 15:47-0400 Systolic blood pressure 142 mm[Hg] Akilah Wiggins ROCKET ENGINE TESTER.SWITCHBOARD AND CONTROL ROOM OPERATOR Work Phone: [facility] 02-21-2025 11:53-0400 Body height 152.[address] Froylan Palmer MD Work Phone: [facility] 02-21-2025 11:53-0400 Body weight 145.[address] Froylan Palmer MD Work Phone: [facility] 02-16-2025 15:26-0400 Body mass index (BMI) [Ratio] 58.68 kg/m2 Palomo Torres MD Work Phone: [facility] 02-16-2025 15:26-0400 Body weight 147.42 kg Palomo Torres MD Work Phone: [facility] 02-16-2025 15:26-0400 Diastolic blood pressure 57 mm[Hg] Palomo Torres MD Work Phone: [facility] 02-16-2025 15:26-0400 Heart rate 76 /min Palomo Torres MD Work Phone: [facility] 02-16-2025 15:26-0400 Respiratory rate 20 /min Palomo Torres MD Work Phone: [facility] 02-16-2025 15:26-0400 SaO2% (BldA) [Mass fraction] 91 % Palomo Torres MD Work Phone: [facility] 02-16-2025 15:26-0400 Systolic blood pressure 120 mm[Hg] Palomo Torres MD Work Phone: [facility] 02-07-2025 14:01-0400 Body mass index (BMI) [Ratio] 64.15 kg/m2 Akilah Wiggins ROCKET ENGINE TESTER.SWITCHBOARD AND CONTROL ROOM OPERATOR Work Phone: [facility] 02-07-2025 14:01-0400 Body weight 149 kg Akilah Wiggins APRN.SWITCHBOARD AND CONTROL ROOM OPERATOR Work Phone: [facility] 02-07-2025 14:01-0400 Diastolic blood pressure 80 mm[Hg] Akilah Wiggins ROCKET ENGINE TESTER.SWITCHBOARD AND CONTROL ROOM OPERATOR Work Phone: [facility] 02-07-2025 14:01-0400 Heart rate 86 /min Akilah Wiggins APRN.SWITCHBOARD AND CONTROL ROOM OPERATOR Work Phone: [facility] 02-07-2025 14:01-0400 Systolic blood pressure 121 mm[Hg] Akilah Wiggins APRN.SWITCHBOARD AND CONTROL ROOM OPERATOR Work Phone: [facility] 01-24-2025 11:41-0400 Body mass index (BMI) [Ratio] 66.31 kg/m2 Akilah Wiggins APRN.SWITCHBOARD AND CONTROL ROOM OPERATOR Work Phone: [facility] 01-24-2025 11:41-0400 Body weight 154 kg Akilah Wiggins APRN.SWITCHBOARD AND CONTROL ROOM OPERATOR Work Phone: [facility] 01-24-2025 11:41-0400 Diastolic blood pressure 76 mm[Hg] Akilah Wiggins ROCKET ENGINE TESTER.SWITCHBOARD AND CONTROL ROOM OPERATOR Work Phone: [facility] 01-24-2025 11:41-0400 Heart rate 85 /min Akilah Wiggins ROCKET ENGINE TESTER.SWITCHBOARD AND CONTROL ROOM OPERATOR Work Phone: [facility] 01-24-2025 11:41-0400 Systolic blood pressure 127 mm[Hg] Akilah Wiggins ROCKET ENGINE TESTER.SWITCHBOARD AND CONTROL ROOM OPERATOR Work Phone: [facility] 01-03-2025 00:37-0400 Body temperature 97.8 [degF] Dr. Froylan Palmer MD Work Phone: [facility] 01-03-2025 00:37-0400 Diastolic blood pressure 62 mm[Hg] Dr. Froylan Palmer MD Work Phone: [facility] 01-03-2025 00:37-0400 Heart rate 71 /min Dr. Froylan Palmer MD Work Phone: [facility] 01-03-2025 00:37-0400 Respiratory rate 16 /min Dr. Froylan Palmer MD Work Phone: [facility] 01-03-2025 00:37-0400 SaO2% (BldA) [Mass fraction] 96 % Dr. Froylan Palmer MD Work Phone: [facility] 01-03-2025 00:37-0400 Systolic blood pressure 141 mm[Hg] Dr. Froylan Palmer MD Work Phone: [facility] 01-02-2025 17:47-0400 Body height 152.[address] Froylan Palmer MD Work Phone: [facility] 12-28-2024 18:38-0400 Body temperature 98.49 [degF] Tae Arlethank ROCKET ENGINE TESTER.SWITCHBOARD AND CONTROL ROOM OPERATOR Work Phone: [facility] 12-28-2024 18:38-0400 Diastolic blood pressure 86 mm[Hg] Tae Swank ROCKET ENGINE TESTER.SWITCHBOARD AND CONTROL ROOM OPERATOR Work Phone: [facility] 12-28-2024 18:38-0400 Heart rate 92 /min Tae Swank ROCKET ENGINE TESTER.SWITCHBOARD AND CONTROL ROOM OPERATOR Work Phone: [facility] 12-28-2024 18:38-0400 Respiratory rate 22 /min Tae Swank ROCKET ENGINE TESTER.SWITCHBOARD AND CONTROL ROOM OPERATOR Work Phone: [facility] 12-28-2024 18:38-0400 SaO2% (BldA) [Mass fraction] 91 % Tae Swank ROCKET ENGINE TESTER.SWITCHBOARD AND CONTROL ROOM OPERATOR Work Phone: [facility] 12-28-2024 18:38-0400 Systolic blood pressure 136 mm[Hg] Tae Swank ROCKET ENGINE TESTER.SWITCHBOARD AND CONTROL ROOM OPERATOR Work Phone: [facility] 11-19-2024 22:27-0400 Body temperature 98.2 [degF] Dr. Froylan Palmer MD Work Phone: [facility] 11-19-2024 22:27-0400 Heart rate 84 /min Dr. Froylan Palmer MD Work Phone: [facility] 11-19-2024 22:27-0400 Respiratory rate 18 /min Dr. Froylan Palmer MD Work Phone: [facility] 11-19-2024 22:27-0400 SaO2% (BldA) [Mass fraction] 95 % Dr. Froylan Palmer MD Work Phone: [facility] 11-19-2024 20:36-0400 Body mass index (BMI) [Ratio] 63.5 kg/m2 Dr. Froylan Palmer MD Work Phone: [facility] 11-19-2024 20:36-0400 Body weight 147.[address] Froylan Palmer MD Work Phone: [facility] 11-19-2024 20:35-0400 Body height 152.[address] Froylan Palmer MD Work Phone: [facility] 11-19-2024 20:35-0400 Diastolic blood pressure 71 mm[Hg] Dr. Froylan Palmer MD Work Phone: [facility] 11-19-2024 20:35-0400 Systolic blood pressure 161 mm[Hg] Dr. Froylan Palmer MD Work Phone: [facility] 08-22-2024 15:17-0500 Body height 152.4 cm Hilda Sheets DO Work Phone: [facility] 08-22-2024 15:17-0500 Body mass index (BMI) [Ratio] 61.13 kg/m2 Hilda Sheets DO Work Phone: [facility] 08-22-2024 15:17-0500 Body temperature 98.01 [degF] Hilda Sheets DO Work Phone: [facility] 08-22-2024 15:17-0500 Body weight 141.98 kg Hilda Sheets DO Work Phone: [facility] 08-22-2024 15:17-0500 Diastolic blood pressure 78 mm[Hg] Hilda Sheets DO Work Phone: [facility] 08-22-2024 15:17-0500 Heart rate 89 /min Hilda Sheets DO Work Phone: [facility] 08-22-2024 15:17-0500 SaO2% (BldA) [Mass fraction] 98 % Hilda Sheets DO Work Phone: [facility] 08-22-2024 15:17-0500 Systolic blood pressure 146 mm[Hg] Hilda Sheets DO Work Phone: [facility] 02-09-2024 10:02-0400 Body height 152.4 cm Devyn Granados MD Work Phone: [facility] 02-09-2024 10:02-0400 Body mass index (BMI) [Ratio] 59.37 kg/m2 Devyn Granados MD Work Phone: [facility] 02-09-2024 10:02-0400 Body weight 137.89 kg Devyn Granados MD Work Phone: [facility] 02-09-2024 10:02-0400 Diastolic blood pressure 64 mm[Hg] Devyn Granados MD Work Phone: [facility] 02-09-2024 10:02-0400 Heart rate 93 /min Devyn Granados MD Work Phone: [facility] 02-09-2024 10:02-0400 SaO2% (BldA) [Mass fraction] 97 % Devyn Granados MD Work Phone: [facility] 02-09-2024 10:02-0400 Systolic blood pressure 138 mm[Hg] Devyn Granados MD Work Phone: [facility] 12-26-2023 13:55-0400 Body temperature 98.01 [degF] Yahaira Brown ROCKET ENGINE TESTER.SWITCHBOARD AND CONTROL ROOM OPERATOR Work Phone: [facility] 12-26-2023 13:55-0400 Diastolic blood pressure 85 mm[Hg] Yahaira Brown ROCKET ENGINE TESTER.SWITCHBOARD AND CONTROL ROOM OPERATOR Work Phone: [facility] 12-26-2023 13:55-0400 Heart rate 89 /min Yahaira Brown ROCKET ENGINE TESTER.SWITCHBOARD AND CONTROL ROOM OPERATOR Work Phone: [facility] 12-26-2023 13:55-0400 Respiratory rate 22 /min Yahaira Brown ROCKET ENGINE TESTER.SWITCHBOARD AND CONTROL ROOM OPERATOR Work Phone: [facility] 12-26-2023 13:55-0400 SaO2% (BldA) [Mass fraction] 93 % Yahaira Brown ROCKET ENGINE TESTER.SWITCHBOARD AND CONTROL ROOM OPERATOR Work Phone: [facility] 12-26-2023 13:55-0400 Systolic blood pressure 130 mm[Hg] Yahaira Brown ROCKET ENGINE TESTER.SWITCHBOARD AND CONTROL ROOM OPERATOR Work Phone: [facility] 09-23-2023 15:34-0400 Body temperature 98.01 [degF] Rosita Larouere ROCKET ENGINE TESTER.SWITCHBOARD AND CONTROL ROOM OPERATOR Work Phone: [facility] 09-23-2023 15:34-0400 Diastolic blood pressure 65 mm[Hg] Rosita Larouere ROCKET ENGINE TESTER.SWITCHBOARD AND CONTROL ROOM OPERATOR Work Phone: [facility] 09-23-2023 15:34-0400 Heart rate 92 /min Rosita Magallanesbhartijosh ROCKET ENGINE TESTER.SWITCHBOARD AND CONTROL ROOM OPERATOR Work Phone: [facility] 09-23-2023 15:34-0400 Respiratory rate 18 /min Rosita Rich ROCKET ENGINE TESTER.SWITCHBOARD AND CONTROL ROOM OPERATOR Work Phone: [facility] 09-23-2023 15:34-0400 SaO2% (BldA) [Mass fraction] 95 % Rosita Rich ROCKET ENGINE TESTER.SWITCHBOARD AND CONTROL ROOM OPERATOR Work Phone: [facility] 09-23-2023 15:34-0400 Systolic blood pressure 110 mm[Hg] Rosita Rich ROCKET ENGINE TESTER.SWITCHBOARD AND CONTROL ROOM OPERATOR Work Phone: [facility] 01-17-2022 06:22-0400 Body height 152 cm Sleep Main Work Phone: [facility] 01-17-2022 06:22-0400 Body weight 127 kg Sleep Main Work Phone: [facility] Encounters Encounter Date Encounter Type Care Provider Facility Start: 04-28-2025 ambulatory Shoaib Prado Facility:[facility] Start: 04-18-2025 End: 04-18-2025 ambulatory JOSELYN GREGG Facility:[facility] Start: 04-18-2025 Encounter for gynecological examination (general) (routine) without abnormal findings [facility] Start: 03-29-2025 End: 03-29-[address] Shoaib Prado MD -[facility] Work Phone: Start: 03-29-2025 End: 03-29-[address] Hilda Holley DO Work Phone: -[facility] Start: 03-14-2025 Non-patient / Non-visit Dr. Russ Mancuso MD -[facility] Start: 03-14-2025 End: 04-11-[address] Russ Mancuso MD -[facility] Work Phone: Start: 03-14-[address] Russ Mendiola rn, MD -[facility] Work Phone: Start: 03-14-2025 End: 04-11-[address] Hilda Holley DO Work Phone: -[facility] Start: 02-28-2025 Non-patient / Non-visit Dr. Russ Mancuso MD -[facility] Start: 02-28-2025 End: 03-12-[address] Froylan Palmer MD Work Phone[facility] Start: 02-28-2025 End: 03-12-[address] Russ Mancuso MD -[facility] Work Phone: Start: 02-27-2025 End: 02-27-2025 Telephone encounter Akilah Wiggins APRN.SWITCHBOARD AND CONTROL ROOM OPERATOR Work Phone: [facility] [place] Comment on above: [facility] Start: 02-24-2025 ambulatory AKILAH WIGGINS Facilit y:[facility] Start: 02-24-2025 End: 02-24-2025 Subsequent hospital visit by physician Screen Mammo [facility] Comment on above: Encounter for screen ing mammogram for breast cancer [Z12.31] Start: 02-22-2025 End: 02-22-2025 Telephone encounter Lucien Taylor MD [facility] Department Comment on above: [employer] Transition of Care Start: 02-21-2025 Non-patient / Non-visit Dr. Russ Mancuso MD -[facility] Start: 02-21-2025 End: 02-21-2025 Transitional care manage srvc 14 day discharge Akilah Wiggins ROCKET ENGINE TESTER.SWITCHBOARD AND CONTROL ROOM OPERATOR Work Phone: [facility] [place] Comment on above: Cellulitis and absce ss of leg (Primary Dx); Right ventricular diastolic dysfunction; Chronic sphenoidal sinusitis; Encounter for smoking cessation counseling; Morbid obesity (HCC); Encounter for tobacco use cessation counseling Start: 02-21-2025 End: 02-21-2025 ambulatory AKILAH WIGGINS Facility:[facility] Start: 02-20-2025 ambulatory AKILAH WIGGINS Facilit y:[facility] Start: 02-20-2025 End: 02-20-2025 Subsequent hospital visit by physician [facility] (I-Stat/1.5t) Work Phone: Radiology Comment on above: Generalized anxiety disorder [F41.1] Start: 02-16-2025 End: 02-16-2025 Patient encounter procedure Palomo Torres MD Work Phone: General Surgery Comment on above: Panniculitis (Primar y Dx); Morbid obesity (HCC); Abdominal wall cellulitis Start: 02-16-2025 End: 02-16-2025 ambulatory AKILAH WIGGINS Facility:[facility] Start: 02-16-2025 End: 02-27-2025 Follow-up encounter Akilah Wiggins APRN.CNP Work Phone: Family Medicine [place] Comment on above: Results Start: 02-14-2025 Non-patient / Non-visit Dr. Russ Mancuso MD [facility] Start: 02-10-2025 End: 02-10-2025 Telephone encounter Lucien Taylor MD [facility] Department Comment on above: Fabric Transition of Care Start: 02-07-2025 End: 02-09-2025 ambulatory [facility] Facility:[facility] Start: 02-07-2025 End: 02-07-2025 Patient encounter procedure Akilah Wiggins APRN.CNP Work Phone: Family Medicine [place] Comment on above: Cellulitis and absce ss of leg (Primary Dx) Start: 02-07-2025 End: 02-07-2025 ambulatory AKILAH WIGGINS Facility:[facility] Start: 02-03-2025 End: 02-03-2025 ambulatory Akilah Wiggins APRN.CNP Work Phone: Family Medicine [place] Comment on above: My leg Cellulitis Start: 02-03-2025 End: 02-03-2025 Telephone encounter Akilah Wiggins APRN.CNP Work Phone: Family Medicine [place] Comment on above: Patient Update Start: 01-24-2025 End: 01-24-2025 Telephone encounter Akilah Wiggins APRN.CNP Work Phone: Family Medicine [place] Comment on above: Medication Problem Start: 01-24-2025 End: 01-24-2025 ambulatory AKILAH WIGGINS Facility:[facility] Start: 01-24-2025 End: 01-24-2025 Patient encounter procedure Akilah Wiggins APRN.CNP Work Phone: Family Medicine [place] Comment on above: Intertrigo (Primary Dx); Hyperlipidemia, mixed; Generalized anxiety disorder; Morbid obesity (HCC); Tobacco abuse; Mixed hyperlipidemia; Asthma with chronic obstructive pulmonary disease (COPD) (HCC); Gastroesophageal reflux disease without esophagitis; Screening for diabetes mellitus; Abdominal wall cellulitis; Cellulitis and abscess of leg; Encounter for tobacco use cessation counseling; Chronic insomnia; PTSD (post-traumatic stress disorder); MPD syndrome; Other specified attention deficit hyperactivity disorder (ADHD); Injury of head, initial encounter; Encounter for immunization; Encounter for screening mammogram for breast cancer Start: 01-24-2025 End: 01-24-2025 ambulatory AKILAH WIGGINS Facility:[facility] Start: 01-04-2025 End: 01-04-2025 ambulatory Hilda Holley DO Work Phone: [facility] Start: 01-04-2025 End: 01-04-2025 Follow-up encounter Hilda Holley DO Work Phone: [facility] Comment on above: ED Follow-up ([facility] 12/29/24, [facility] ER 01/02/25) Start: 01-02-2025 End: 01-03-2025 Emergency department patient visit Dr. Froylan Palmer MD Work Phone: -Emergency Department Work Phone: Start: 12-29-2024 End: 12-29-2024 Emergency department patient visit LINDA STEPHENS Facility:[facility] Start: 12-28-2024 End: 12-28-2024 ambulatory HILDA HOLELY Facility:[facility] Start: 12-28-2024 End: 12-28-2024 Patient encounter procedure Tae Triplett APRN.SWITCHBOARD AND CONTROL ROOM OPERATOR Work Phone: [place] [facility] Comment on above: Generalized abdomina l pain (Primary Dx); Edema, unspecified type Start: 12-12-2024 End: 12-12-2024 Telephone encounter Hilda C Sheets DO Work Phone: [facility] Comment on above: Forms ([facility] Oxygen Order) Start: 11-30-2024 End: 11-30-2024 ambulatory ERA MelvinConnieRADHA Facility:[facility] Start: 11-28-2024 End: 11-28-2024 Patient encounter procedure Rafa Parks OD Work Phone: Ophthalmology Comment on above: Toxoplasma chorioret initis (Primary Dx); Regular astigmatism of both eyes; Presbyopia Start: 11-28-2024 End: 11-28-2024 ambulatory RAFA PARKS Facility:[facility] Start: 11-25-2024 End: 11-25-2024 ambulatory Hilda Archibald Sheets DO Work Phone: [facility] Start: 11-25-2024 End: 11-25-2024 Follow-up encounter Hilda C Sheets DO Work Phone: [facility] Comment on above: ED Follow-up ([place] [facility] 11/19/2024) Start: 11-19-2024 End: 11-19-2024 Emergency department patient visit Dr. Froylan Palmer MD Work Phone: -Emergency Department Work Phone: Start: 11-07-2024 End: 11-08-2024 ambulatory Shayy Dunbar PT Work Phone: [facility] PHYSICAL THERAPY Comment on above: Weakness of left brennen ulder (Primary Dx); Chronic left shoulder pain Start: 10-21-2024 End: 10-21-2024 Telephone encounter Hilda C Sheets DO Work Phone: [facility] Comment on above: Forms ([place] CPAP Supply Order) Start: 10-12-2024 End: 10-14-2024 Follow-up encounter Hilda C Sheets DO Work Phone: [facility] Comment on above: Results Start: 09-28-2024 End: 09-28-2024 ambulatory Hilda C Sheets DO Work Phone: [facility] Start: 09-28-2024 End: 09-28-2024 Follow-up encounter Hilda C Sheets DO Work Phone: [facility] Comment on above: ED Follow-up (Donell Polo D 09/26/2024) Start: 09-26-2024 End: 09-26-2024 Emergency department patient visit HILDA C SHEETS Facility:[facility] Start: 09-12-2024 End: 09-13-2024 ambulatory Hilda C Sheets DO Work Phone: [facility] Comment on above: Does anxiety cause c hest pains Start: 09-11-2024 End: 10-12-2024 Patient encounter procedure Sleep Lab [place] Bed [facility] Comment on above: BRITTANY (obstructive sle ep apnea) Start: 09-11-2024 End: 09-11-2024 ambulatory HILDA C SHEETS Facility[facility] Start: 08-22-2024 End: 08-22-2024 ambulatory SELF Facility:[facility] Start: 08-22-2024 End: 08-22-2024 Patient encounter procedure Hilda C Sheets DO Work Phone: [facility] Comment on above: BRITTANY (obstructive sle ep apnea) (Primary Dx); Adult ADHD; Pure hypertriglyceridemia; Hyperlipidemia, mixed; Venous stasis; Chronic left shoulder pain; Generalized anxiety disorder; Morbid obesity (HCC); Tobacco abuse Start: 07-11-2024 End: 07-11-2024 Emergency department patient visit Froylan Palmer Facility:[facility] Start: 05-05-2024 End: 05-05-2024 Emergency department patient visit MONICA FERNANDEZ Facility:[facility] Start: 04-05-2024 ambulatory MONICA FERNANDEZ Facility:[facility] Start: 04-04-2024 End: 05-20-2024 ambulatory VANDANA Vaca RYLEE DO-FAC Facility:[id number] Start: 03-09-2024 End: 03-09-2024 ambulatory VANDANA Vaca RYLEE DO-FAC [facility] Start: 03-01-2024 ambulatory MARINTai FERNANDEZ Facility:[facility] Start: 03-01-2024 End: 03-01-2024 Subsequent hospital visit by physician Screen/Diagnostic Mamm[facility] Work Phone: Mammography Comment on above: Mastodynia [N64.4] Start: 02-26-2024 End: 02-26-2024 ambulatory MONICA FERNANDEZ Facility:[id number] Start: 02-24-2024 End: 02-24-2024 ambulatory [facility]NA [facility] Facility:[id number] Start: 02-09-2024 End: 02-09-2024 Patient encounter procedure Devyn Granados MD Work Phone: General Surgery Comment on above: Aftercare (Primary D x) Start: 02-02-2024 End: 02-02-2024 ambulatory FERMIN BENTLEY MD Facility:[facility] Start: 01-05-2024 End: 01-05-2024 Patient encounter procedure Devyn Granados MD Work Phone: General Surgery Comment on above: Aftercare (Primary D x) Start: 12-26-2023 Emergency department patient visit Room Emergency CT Scan Comment on above: Radiology CT Start: 12-26-2023 End: 12-26-2023 Patient encounter procedure Yahaira Motley APRN.SWITCHBOARD AND CONTROL ROOM OPERATOR Work Phone: [facility] Comment on above: Right upper quadrant abdominal pain (Primary Dx); Left upper quadrant abdominal pain; Dysuria; Nausea; Dizziness Start: 12-21-2023 ambulatory STEFFANY HERNANDEZ MD Facilit y:[facility] Start: 12-18-2023 End: 12-18-2023 ambulatory STEFFANY HERNANDEZ MD Facility:[id number] Start: 12-18-2023 End: 12-18-2023 ambulatory STEFFANY HERNANDEZ MD Facility:[facility] Start: 12-18-2023 End: 12-18-2023 ambulatory STEFFANY HERNANDEZ MD Facility:[id number] Start: 09-23-2023 End: 09-23-2023 Patient encounter procedure Rosita Rich APRN.SWITCHBOARD AND CONTROL ROOM OPERATOR Work Phone: [facility] Comment on above: Acute upper respirat ory infection (Primary Dx) Start: 07-30-2022 End: 07-30-2022 Patient encounter procedure Debbi Leija MD Work Phone: Otolaryngology Comment on above: Other dysphagia (Sharla bhupendra Dx) Start: 05-19-2022 Transcribe Orders [facility] Main Work Phone: Neurology Comment on above: Obstructive sleep ap adrian (adult) (pediatric) (Primary Dx) Start: 04-03-2022 End: 04-03-2022 Patient encounter procedure Clifford Berman MD Work Phone: Otolaryngology Comment on above: Chronic pansinusitis (Primary Dx); Chronic rhinitis; Dizziness Start: 11-25-2021 Transcribe Orders [facility] Work Phone: Neurology Comment on above: Obstructive sleep ap adrian syndrome (Primary Dx) Start: 11-07-2021 Chart abstracting [facility] Work Phone: Neurology Procedures Date Procedure Procedure Detail Performing Clinician Start: 02-20-2025 Mri brain brain stem w/o contrast material Akilah Wiggins APRN.SWITCHBOARD AND CONTROL ROOM OPERATOR Work Phone: Start: 01-02-2025 X-ray of chest, PA and lateral views Dr. Froylan Palmer MD Work Phone: Start: 01-02-2025 Urnls dip stick/tablet reagent auto microscopy Dr. Froylan Palmer MD Work Phone: Start: 01-02-2025 CT of head without contrast Dr. Froylan Plamer MD Work Phone: Start: 01-02-[address] Froylan Palmer MD Work Phone: Start: 01-02-2025 SARS-CoV-2, Influenza & RSV (PCR) Dr. Froylan Palmer MD Work Phone: Start: 01-02-[address] Froylan Palmer MD Work Phone: Start: 11-28-2024 Computerized ophthalmic imaging retina Rafa Parks OD Work Phone: Start: 09-11-2024 PAP TITRATION PSG (CPAP, BIPAP, ASV) Hilda Holley DO Work Phone: Start: 03-01-2024 Us breast uni real time with image limited Vidya Sung SWITCHBOARD AND CONTROL ROOM OPERATOR Work Phone: Start: 03-01-2024 Digital breast tomosynthesis bilateral Vidya Sung SWITCHBOARD AND CONTROL ROOM OPERATOR Work Phone: Start: 12-26-2023 Urnls dip stick/tablet rgnt auto w/o microscopy [facility] Provider History of appendectomy Hx of appendectom y Dr. Froylan Palmer MD Work Phone: History of appendectomy Hx of appendectom y Dr. Russ Mancuso MD History of appendectomy Hx of appendectom y Dr. Russ Mancuso MD History of cholecystectomy Hx of cholecys tectomy Dr. Froylan Palmer MD Work Phone: History of cholecystectomy Hx of cholecys tectomy Dr. Russ Mancuso MD History of cholecystectomy Hx of cholecys tectomy Dr. Russ Mancuso MD Plan of Treatment Date Care Activity Detail Author Start: 01-24-2035 Urine microalbumin profile DTaP,Tdap,Td Vaccine (2 - Td or Tdap) [facility] Start: 04-12-2027 Screening for malign ant neoplasm of cervix Cervical Cancer Screening [facility] Start: 02-24-2026 Screening for malign ant neoplasm of breast Mammogram Screening [facility] Start: 02-21-2026 Annual PCP Team Energy Risk Management Analyst osiris Disease Visit Annual PCP Team Chronic Disease Visit [facility] Start: 02-07-2026 Annual PCP Team Energy Risk Management Analyst osiris Disease Visit Annual PCP Team Chronic Disease Visit [facility] Start: 01-24-2026 Annual PCP Team Energy Risk Management Analyst osiris Disease Visit Annual PCP Team Chronic Disease Visit [facility] Start: 11-30-2025 End: 11-30-2025 Patient encounter procedure 11/30/2025 2:15 PM EDT Office Visit [facility] [address] [place] [address] Rafa Parks, OD [address] [place] [address] 1 YR F/U for complete with Mac OCT. Ophthalmology Comment on above: 1 YR F/U for complet e with Mac OCT. Start: 08-22-2025 Annual PCP Team Energy Risk Management Analyst osiris Disease Visit Annual PCP Team Chronic Disease Visit [facility] Start: 08-22-2025 Covid-19 Vaccine ( season) Covid-19 Vaccine () [facility] Comment on above: Postponed from 03/13 (Declined at this time) Start: 08-22-2025 Hepatitis C screening Hepatitis C Sc reening [facility] Comment on above: Postponed from 05/24 (Declined at this time) Start: 08-22-2025 HIV screening HIV Screening [facility] Comment on above: Postponed from 05/24 (Declined at this time) Start: 05-25-2025 End: 05-25-2025 Patient encounter procedure 05/25/2025 2:00 PM EST Office Visit Family Medicine [address] [address] Akilah Wiggins APRN.SWITCHBOARD AND CONTROL ROOM OPERATOR [address] [place] [address] 3 month follow up Family Medicine [place] Comment on above: 3 month follow up Start: 04-05-2025 End: 04-05-2025 Patient encounter procedure 04/05/2025 10:00 AM EDT Office Visit OB/Gynecology [address] [place] [address] Savanna Luis APRN.CNM [address] [place], [place] [id number] Annual OB/Gynecology Comment on above: Annual Start: 03-29-2025 End: 03-29-2025 Evaluation of diagnostic study results [facility] Start: 03-13-2025 Influenza vaccination Influenza Vacc ine (#1) [facility] Start: 03-01-2025 Screening for malign ant neoplasm of breast Mammogram Screening [facility] Start: 02-28-2025 End: 02-28-2025 Patient encounter procedure 02/28/2025 2:00 PM EDT Office Visit OB/Gynecology [address] [facility] [place] [address] Yasmeen Parmar APRN.SWITCHBOARD AND CONTROL ROOM OPERATOR [address] [place] [address] ANNUAL OB/Gynecology Comment on above: ANNUAL Start: 02-24-2025 End: 02-24-2025 Patient encounter procedure Plastic Surgery Comment on above: Lower extremity woun ds Mammogram Start: 02-21-2025 End: 02-21-2025 Patient encounter procedure 02/21/2025 4:00 PM EDT Office Visit Family Medicine [place] [address] [facility] [place] [id number] Akilah Wiggins APRN.SWITCHBOARD AND CONTROL ROOM OPERATOR [address] [place], [place] [id number] follow up leg Family Medicine [place] Comment on above: follow up leg Start: 02-21-2025 End: 05-22-2025 Basic metabolic 2000 panel - Serum or Plasma [facility] Work Phone: Comment on above: Expected: 02/21/2025 , Expires: 05/22/2025 Start: 02-20-2025 End: 02-20-2025 Patient encounter procedure 02/20/2025 4:30 PM EDT Appointment Radiology [address] [facility] [place] [address] Generalized anxiety disorder [F41.1]; PTSD (post-traumatic stress disorder) [F43.10]; 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.18]; Injury of head, initial encounter [S09.90XA] Radiology Comment on above: Generalized anxiety disorder [F41.1]; PTSD (post-traumatic stress disorder) [F43.10]; 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.18]; Injury of head, initial encounter [S09.90XA] Start: 02-20-2025 End: 02-20-2025 Patient encounter procedure 02/20/2025 2:50 PM EDT Appointment Mammogram [address] [place] [address] Mammogram Start: 02-16-2025 End: 02-16-2025 Patient encounter procedure 02/16/2025 3:45 PM EDT Office Visit General Surgery [address] [place] [address] Palomo Torres MD [address] [place] [address] Morbid obesity (HCC) [E66.01]; Abdominal wall cellulitis [L03.311] General Surgery Comment on above: Morbid obesity (HCC) [E66.01]; Abdominal wall cellulitis [L03.311] Start: 02-16-2025 End: 02-16-2025 ambulatory PULM LAB [facility] Comment on above: Morbid obesity (HCC) [E66.01]; Asthma with chronic obstructive pulmonary disease (COPD) (HCC) [J44.89] Start: 02-08-2025 End: 02-08-2025 Patient encounter procedure 02/08/2025 11:10 AM EDT Office Visit OB/Gynecology [address] [place] [address] Joselyn Gregg MD [address] [place] [address] ANNUAL OB/Gynecology Comment on above: ANNUAL Start: 02-07-2025 End: 02-07-2025 Patient encounter procedure 02/07/2025 2:20 PM EDT Office Visit Family Medicine [place] [address] [place] [address] Akilah Wiggins APRN.[facility] [address] [place], [place] [phone] 2 week follow up Family Medicine [place] Comment on above: 2 week follow up Start: 01-24-2025 End: 04-25-2025 Hemoglobin A1c in Blood [facility] Work Phone: Comment on above: Expected: 01/24/2025 , Expires: 04/25/2025 Start: 01-24-2025 End: 04-25-2025 Insulin [Units/volume] in Serum or Plasma [facility] Comment on above: Expected: 01/24/2025 , Expires: 04/25/2025 Start: 01-24-2025 End: 01-24-2025 Patient encounter procedure 01/24/2025 11:40 AM EDT Office Visit Family [facility] [address] [place] [address] Akilah Wiggins APRN.[facility] [address] [place] [address] [facility] Comment on above: [facility] Start: 01-09-2025 End: 01-09-2025 ambulatory 01/09/2025 4:15 PM EDT OT/PT/Speech Visit [facility] Physical Therapy [address] [place] [address] Era Salguero, PT Chronic left shoulder pain [M25.512, G89.29] [facility] Physical Therapy Comment on above: Chronic left shoulde r pain [M25.512, G89.29] Start: 01-03-2025 [facility] Start: 01-02-2025 End: 01-02-2025 [facility] Start: 01-02-2025 Bacteria identified in Blood by Culture Blood Culture [facility] Start: 01-02-2025 Bacteria identified in Urine by Culture Urine Culture [facility] Start: 12-21-2024 End: 12-21-2024 ambulatory 12/21/2024 6:00 PM EDT OT/PT/Speech Visit [facility] Physical Therapy [address] [place], [place] [id number] Era Salguero, PT Chronic left shoulder pain [M25.512, G89.29] [facility] Physical Therapy Comment on above: Chronic left shoulde r pain [M25.512, G89.29] Start: 11-30-2024 End: 11-30-2024 ambulatory 11/30/2024 6:00 PM EDT OT/PT/Speech Visit [facility] Physical Therapy [address] [place] [address] Era Salguero, PT Chronic left shoulder pain [M25.512, G89.29] [facility] Physical Therapy Comment on above: Chronic left shoulde r pain [M25.512, G89.29] Start: 11-28-2024 End: 11-28-2024 Patient encounter procedure 11/28/2024 2:30 PM EDT Office Visit [facility] [address] [place] [address] Rafa Parks, OD [address] [place] [address] left eye irritation Ophthalmology Comment on above: left eye irritation Start: 11-21-2024 End: 11-21-2024 ambulatory 11/21/2024 4:15 PM EDT OT/PT/Speech Visit [facility] Physical Therapy [address] [place] [address] Era Salguero, PT Chronic left shoulder pain [M25.512, G89.29] [facility] Physical Therapy Comment on above: Chronic left shoulde r pain [M25.512, G89.29] Start: 11-19-2024 [facility] Start: 11-18-2024 End: 11-18-2024 Patient encounter procedure 11/18/2024 3:20 PM EDT Office Visit [address] [address] Goldie Ortiz, ROCKET ENGINE TESTER.SWITCHBOARD AND CONTROL ROOM OPERATOR [address] [place], [place] [phone] er follow up/left shoulder pain [facility] Comment on above: er follow up/left sh oulder pain Start: 11-07-2024 End: 11-07-2024 ambulatory 11/07/2024 4:30 PM EDT OT/PT/Speech Visit [facility] PHYSICAL THERAPY [address] [place] [address] Shayy Dunbar, PT [address] [place] [address] My left shoulder left hip left leg [facility] PHYSICAL THERAPY Comment on above: My left shoulder lef t hip left leg Start: 10-31-2024 End: 10-31-2024 Patient encounter procedure 10/31/2024 3:20 PM EDT Office Visit [facility] [address] [place] [address] Goldie Ortiz, ROCKET ENGINE TESTER.SWITCHBOARD AND CONTROL ROOM OPERATOR [address] [place] [address] er follow up/left shoulder pain [facility] Comment on above: er follow up/left sh oulder pain Start: 10-12-2024 End: 10-12-2024 ambulatory 10/12/2024 3:45 PM EDT OT/PT/Speech Visit [facility] Physical Therapy [address] [place] [address] Era Salguero, PT My left shoulder [facility] Physical Therapy Comment on above: My left shoulder Start: 09-27-2024 End: 09-27-2024 Patient encounter procedure 09/27/2024 4:20 PM EDT Office Visit [facility] [address] [place] [address] Hilda Hol[place], [address] [place] [address] for left shoulder pain. [facility] Comment on above: for left shoulder pa in. Start: 08-29-2024 End: 08-29-2024 Patient encounter procedure 08/29/2024 9:00 PM EST Office Visit [facility] [address] [place] [address] Split [facility] Comment on above: Split Start: 08-22-2024 End: 11-21-2024 Lipid 1996 panel - Serum or Plasma LIPID PANEL BASIC Lab Routine Hyperlipidemia, mixed Expected: 08/22/2024, Expires: 11/21/2024 [facility] Comment on above: Expected: 08/22/2024 , Expires: 11/21/2024 Start: 03-13-2024 Influenza vaccination C [facility] Start: 03-01-2024 End: 03-01-2024 Patient encounter procedure Mammography Comment on above: Order will be faxed on 01/29/2024 per Melly Start: 09-23-2023 End: 10-07-2023 COVID & INFLUENZA A/B & RSV NAAT, ROUTINE [facility] Work Phone: Comment on above: Expected: 09/23/2023 , Expires: 10/07/2023 Start: 07-13-2023 Behavioral Health Screening Behavioral Health Screening [facility] Start: 07-13-2023 Depression Assessment Depression Ass [facility] Start: 03-13-2023 Covid-19 Vaccine ( season) Covid-19 Vaccine () [facility] Start: 03-13-2023 Influenza vaccination Influenza Vacc ine (#1) [facility] Start: 07-13-2022 [facility] Start: 2022 Mammography MAMMOGRAM [facility] Start: 2022 Screening for malign ant neoplasm of breast Mammogram Screening [facility] Start: 03-13-2022 Influenza vaccination INFLUENZA (#1) [facility] Start: 07-13-2021 [facility] Start: 2012 HPV TESTING HPV TESTING [facility] Start: 2012 Screening for malign ant neoplasm of cervix HPV Testing [facility] Start: 2012 Zoledronic acid therapy Alpha- 1 Antitrypsin Deficiency Screening [facility] Start: 2009 HPV Vaccine (1 - 3-d ose SCDM series) HPV Vaccine (1 - 3-dose SCDM series) [facility] Start: 2003 PAP TESTING PAP TESTING [facility] Start: 2003 Screening for malign ant neoplasm of cervix [facility] Start: 2001 Hepatitis B Vaccine (1 of 3 - 19+ 3-dose series) Hepatitis B Vaccine (1 of 3 - 19+ 3-dose series) [facility] Start: 2001 Pneumococcal vaccination Pneumococcal Vaccine (1 of 2 - PCV) [facility] Start: 2001 Urine microalbumin profile [facility] Start: 2000 Annual PCP Team Energy Risk Management Analyst osiris Disease Visit Annual PCP Team Chronic Disease Visit [facility] Start: 2000 Depression Screening Depression Scre ening [facility] Start: 2000 [facility] Start: 2000 Hepatitis C screening Hepatitis C Sc [facility] Start: 2000 HIV SCREENING HIV SCREENING [facility] Start: 2000 HIV screening HIV Screening [facility] Start: 2000 Spirometry Spirometry [facility] Start: 1994 Adult depression screening assessment DEPRESSION SCREENING [facility] Start: 1988 PNEUMOCOCCAL (1 - PCV) PNEUMOCOCCAL (1 - PCV) [facility] Start: 1988 Pneumococcal vaccination Pneumococcal Vaccine (1 of 2 - PCV) [facility] Start: 1982 COVID-19 VACCINE (#1) COVID-19 VACCI NE (#1) [facility] Start: 1982 HEPATITIS B (1 of 3 - 3-dose series) HEPATITIS B (1 of 3 - 3-dose series) [facility] CTA Chest vessels WO and W contrast IV [facility] End: 02-23-2026 DBT Breast - bilateral screening ABHAY SCREENING W RAFFI Radiology Routine Encounter for screening mammogram for breast cancer 1 Occurrences starting 01/24/2025 until 02/23/2026 [facility] Comment on above: 1 Occurrences starti ng 01/24/2025 until 02/23/2026 DBT Breast - bilater al screening ABHAY SCREENING W RAFFI Radiology Routine Encounter for screening mammogram for breast cancer 02/24/2025 9:25 AM EDT [facility] Work Phone: End: 02-23-2026 LUNG VOLUMES LUNG VOLUMES PFT Routine Morbid obesity (HCC) Asthma with chronic obstructive pulmonary disease (COPD) (HCC) 1 Occurrences starting 01/24/2025 until 02/23/2026 [facility] Comment on above: 1 Occurrences starti ng 01/24/2025 until 02/23/2026 End: 02-23-2026 MR Brain WO contrast MRI BRAIN WO IVCON Radiology Routine Generalized anxiety disorder PTSD (post-traumatic stress disorder) MPD syndrome Injury of head, initial encounter 1 Occurrences starting 01/24/2025 until 02/23/2026 [facility] Comment on above: 1 Occurrences starti ng 01/24/2025 until 02/23/2026 End: 09-21-2025 PAP TITRATION PSG (CPAP, BIPAP, ASV) PAP TITRATION PSG (CPAP, BIPAP, ASV) Procedures Routine BRITTANY (obstructive sleep apnea) 1 Occurrences starting 08/22/2024 until 09/21/2025 [facility] Work Phone: Comment on above: 1 Occurrences starti ng 08/22/2024 until 09/21/2025 Patient Education [facility] Work Phone: Patient referral [facility] Work Phone: End: 11-25-2022 Polysomnogram POLYSOMNOGRAM (PSG) Procedures Routine Obstructive sleep apnea syndrome 1 Occurrences starting 11/25/2021 until 11/25/2022 [facility] Comment on above: 1 Occurrences starti ng 11/25/2021 until 11/25/2022 End: 05-19-2023 Polysomnogram POLYSOMNOGRAM (PSG) Procedures Routine Obstructive sleep apnea (adult) (pediatric) 1 Occurrences starting 05/19/2022 until 05/19/2023 [facility] Comment on above: 1 Occurrences starti ng 05/19/2022 until 05/19/2023 End: 08-29-2023 Radiologic exam esophagus single contrast study XR ESOPHAGRAM Radiology Routine Other dysphagia 1 Occurrences starting 07/30/2022 until 08/29/2023 [facility] Work Phone: Comment on above: 1 Occurrences starti ng 07/30/2022 until 08/29/2023 End: 08-29-2023 Radiologic exam swallow function contrast study XR MODIFIED BARIUM SWALLOW W SPEECH THERAPY Radiology Routine Other dysphagia 1 Occurrences starting 07/30/2022 until 08/29/2023 [facility] Work Phone: Comment on above: 1 Occurrences starti ng 07/30/2022 until 08/29/2023 End: 02-23-2026 SPIROMETRY - BASELINE AND POST DILATOR SPIROMETRY - BASELINE AND POST DILATOR PFT Routine Morbid obesity (HCC) Asthma with chronic obstructive pulmonary disease (COPD) (HCC) 1 Occurrences starting 01/24/2025 until 02/23/2026 [facility] Comment on above: 1 Occurrences starti ng 01/24/2025 until 02/23/2026 [facility] Immun[facility] Immunization Date Immunization Notes Care Provider Fa kortneyty 01-24-2025 tetanus toxoid, redu lucy diphtheria toxoid, and acellular pertussis vaccine, adsorbed Akilah Wiggins ROCKET ENGINE TESTER.SWITCHBOARD AND CONTROL ROOM OPERATOR Work Phone: [facility] 03-14-2024 influenza virus vacc ine, unspecified formulation Hilda Sheets DO Work Phone: [facility] Payers Date Payer Category Payer Self-pay 2022 Unknown [id number] 2020 Medicaid MEDICAID [facility] MEDICAID [id number] 2020-Present [phone] [address] [place] [address] Medicaid [id number] 2020 Medicaid [id number] 2008 Unknown 1980 Unknown [id number] 1982 Unknown [id number] [id number] 1982 Unknown [id number] 2.16840.1.080489.3.579.2.159 1982 Unknown [id number] [id number] 1982 Unknown [id number] [id number] 1982 Unknown [id number] 2.16.840.1.056073.3.579.2.159 1982 Unknown [id number] 2.16.840.1.008689.3.579.2.159 1982 Unknown [id number] 2.16.840.1.234322.3.579.2.159 1982 Unknown [id number] 2.16.840.1.226805.3.579.2.159 1982 Unknown [id number] 2.16.840.1.235203.3.579.2.159 Unknown [id number] 2.16.840.1.121089.3.579.2.462 Unknown [id number] 2.16.840.1.683235.3.579.2.462 Unknown [id number] 2.16.840.1.933965.3.579.2.462 Unknown [id number] 2.16.840.1.630353.3.579.2.462 Unknown [id number] 2.16.840.1.579999.3.579.2.462 Unknown [id number] 2.16.840.1.497750.3.579.2.462 Unknown [id number] [id number] Social History Date Type Detail Facility Tobacco smoking status IAIS Tobacco smoking consumption unknown [facility] Start: 1980 Sex Assigned At Not on file [facility] Start: 01-06-2022 End: 05-15-2022 Exposure to SARS-CoV-2 (event) Not sure [facility] Start: 04-03-2022 End: 03-08-2025 Tobacco smoking status IAIS Smokes tobacco daily [facility] Start: 01-11-2024 History of tobacco use Cigarette Smoker [facility] Start: 04-03-2022 End: 08-18-2024 Cigarettes smoked current (pack per day) - Reported 0.5 [facility] Start: 04-03-2022 End: 01-24-2025 Tobacco use and exposure Smokeless tobacco non-user [facility] Start: 04-03-2022 [facility] intake [facility] Start: 04-03-2022 History SDOH Alcohol Comment occ [facility] Start: 07-30-2022 End: 08-22-2024 Alcohol intake Lifetime non-drinker (finding) [facility] Start: 09-23-2023 End: 08-18-2024 Tobacco use panel [facility] Start: 09-26-2021 National Score (1-100), lower number is lower risk 85 [facility] Has the [employer], gas, oil, or water [employer] threatened to shut off services in your home in past 12Mo No [facility] (I/We) worried whether (my/our) food would run out before (I/we) got money to buy more. Never true [facility] Start: 09-26-2024 End: 02-16-2025 Alcoholic beverage intake Current drinker of alcohol (finding) [facility] Start: 09-26-2024 Alcohol Comment rare [facility] Start: 11-19-2024 Tobacco smoking status [facility] Current Heavy tobacco smoker [facility] Start: 1980 Sex Assigned At Female W [facility] Start: 01-02-2025 Tobacco smoking status [facility] Current Light tobacco smoker [facility] Are you now , , , , never or living with a partner? Living with partner [facility] How often to you hav e a drink containing alcohol? Monthly or less [facility] How often do you hav e 6 or more drinks on 1 occasion? Less than monthly [facility] How hard is it for you to pay for the very basics like food, housing, medical care, and heating Not very hard [facility] Do you feel stress - tense, restless, nervous, or anxious, or unable to sleep at night because your mind is troubled all the time - these days [OSQ] Only a little [facility] (I/We) worried whether (my/our) food would run out before (I/we) got money to buy more. Sometimes true [facility] NEGATED: Highlighted rowStart: NINF History of tobacco use Passive smoker [facility] Functional Status Date Assessment Result Facility 02-09-2025 Are you deaf, or do you have serious difficulty hearing No 02/09/2025 3:01 PM Akilah Navarrete, CHAIM No [facility] 02-09-2025 Are you blind, or do you have serious difficulty seeing, even when wearing glasses No 02/09/2025 3:01 PM Akilah Navarrete, CHAIM No [facility] 02-09-2025 Do you have serious difficulty walking or climbing stairs No 02/09/2025 3:01 PM Akilah Navarrete, CHAIM No [facility] 02-09-2025 Do you have difficul ty dressing or bathing No 02/09/2025 3:01 PM Akilah Navarrete, CHAIM No [facility] 02-09-2025 Because of a physica l, mental, or emotional condition, do you have difficulty doing errands alone such as visiting a physician's office or shopping No 02/09/2025 3:01 PM Akilah Navarrete, CHAIM No [facility] 12-29-2023 Are you deaf, or do you have serious difficulty hearing No 12/29/2023 2:03 PM Alisa Yañez, CHAIM No [facility] Work Phone: 12-29-2023 Are you blind, or do you have serious difficulty seeing, even when wearing glasses No 12/29/2023 2:03 PM Alisa Yañez, CHAIM No [facility] 12-29-2023 Do you have serious difficulty walking or climbing stairs No 12/29/2023 2:03 PM Alisa Yañez, CHAIM No [facility] 12-29-2023 Do you have difficul ty dressing or bathing No 12/29/2023 2:03 PM Alisa Yañez, CHAIM No [facility] 12-29-2023 Because of a physica l, mental, or emotional condition, do you have difficulty doing errands alone such as visiting a physician's office or shopping No 12/29/2023 2:03 PM Alisa Yañez, CHAIM No [facility] Mental Status Date Assessment Result Facility 02-09-2025 Because of a physica l, mental, or emotional condition, do you have serious difficulty concentrating, remembering, or making decisions No 02/09/2025 3:01 PM EDT Akilah Nagel, CHAIM No [facility] 12-29-2023 Because of a physica l, mental, or emotional condition, do you have serious difficulty concentrating, remembering, or making decisions No 12/29/2023 2:03 PM EDT Alisa Tom, CHAIM No [facility] Clinical Notes 01-17-2022 to 04-18-2025 Note Date & Type Note Facility 04-18-2025 Note HNO ID: [id number] Author: JOSELYN GREGG MD Service: ? Author Type: Physician Type: Progress Notes Filed: 04/18/2025 17:02 Note Text: 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 Bhupendra is a 44 year old who presents for an annual gynecologic exam without complaints. No menses since IUD place Mirena? 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 PTSD (post-traumatic stress disorder) Schizophrenia (HCC) Tobacco abuse PAST SURGICAL HISTORY Procedure Laterality Date APPENDECTOMY 12/27/2023 Dr. Granados CHOLECYSTECTOMY HX INSERTION OF IUD 2023 Placed at [facility] FAMILY HISTORY Problem Relation Age of Onset Hypertension Mother COPD Mother Carotid Disease Mother Ischemic Heart Disease Mother stents Stomach Cancer Father 1994 Hypertension Maternal Grandmother Stomach Cancer Maternal Grandmother 80's Arthritis Maternal Grandmother Dementia Maternal Grandmother Leukemia Maternal Grandfather Cancer Paternal Grandfather No Ocular Disease No Family History SOCIAL HISTORY Social History Tobacco Use Smoking status: Every Day Current packs/day: 1.00 Average packs/day: 1.5 packs/day for 16.3 years (23.8 ttl pk-yrs) Types: Cigarettes Start date: 01/11/2024 Passive exposure: Never Smokeless tobacco: Never Vaping Use Vaping status: Never Used Substance Use Topics Alcohol use: Yes Comment: rare Drug use: Never REVIEW OF SYSTEMS Abdomen: No abdominal pain, nausea, vomiting, diarrhea, or constipation. No bloating, early satiety, indigestion, or increased flatulence. Bladder: No dysuria, gross hematuria, urinary frequency, urinary urgency, or incontinence. Breast: No breast lumps, nipple d/c, overlying skin changes, redness or skin retraction. Allergies and current medication updated:Yes SENSITIVE EXAM: The sensitive examination was discussed with the Patient or Patient's Authorized Angle Furnaceman. As applicable, any other physician, advance practice provider, medical student, or other health professional student that will be observing or involved in the sensitive examination for educational or training purposes was discussed with the Patient or Authorized Angle Furnaceman. The Patient or Authorized Angle Furnaceman has agreed to proceed with the sensitive examination. (Sensitive examination includes inspection and/or palpation of the breasts, pelvis, prostate and anorectal regions). EXAM: BP 132/82 Ht 5' 0 (1.52m) Wt 340 lb (154.2kg) LMP 09/14/2023 BMI 66.40 kg/(m2). GENERAL: pleasant, female in no apparent distress HEENT: Normocephalic, atraumatic, mucus membranes moist, and no lesions NECK: Supple, full range of motion, no adenopathy, and thyroid normal DERMATOLOGY: Normal, without lesions, non-icteric, and non-hirsute BREAST: soft, non-tender, symmetric, no dominant mass, normal nipple-areolar complex, no lymphadenopathy, and no nipple discharge CHEST: Normal inspiratory effort and apnic ABDOMEN: soft, non-tender, no masses, and pannus large PELVIC: external genitalia normal, normal Bartholin's glands, urethra, [place]'s glands, no vulvar lesions, no cervical lesions, good vaginal support, physiologic discharge present, normal appearing perineal body and perianal region, IUD strings visible BIMANUAL: precluded by obesity ASSESSMENT/PLAN: 1) Health maintenance: hx of BV wants checked 2) Contraception: IUD. Contraceptive options reviewed and information provided. 3) STD screening: bv CULTURES 4) Follow up one year or sooner as needed Joselyn Gregg MD [facility] 03-17-2025 History and physical note Note Date/Time March 17, 2025 1:44pm [facility] [address] [place] [address] H&P Exam - Wound Care 03/17/25 1334 MR#: [id number] Acct: [id number] Name: BHUPENDRA HEBERT Rep #:[id number] : 1980 44 From: Russ Ramirez PCP: Akilah Wiggins OVERHEAD WORKER-C Status:REG RCR Location: History of Present Illness Date of Service: 03/14/25 Chief Complaint: Traumatic wound of the right [...] treated in various medical facilities, including the [facility] Emergency Department and the Emergency Department at the [facility]. She was seen at the [facility] ER on January 02, 2025, at which time she was treated with a prescription for cephalexin 500 mg p.o. every 6 hours for 10 days. More recently, the patient was evaluated in the Emergency Department at the [facility] on February 07, at which time [...] denies a history of lower extremity thrombophlebitis. 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 Asthma Tobacco abuse Schizophrenia ADHD Hyperlipidemia GERD (gastroesophageal reflux disease) Toxoplasmosis chorioretinitis COPD (chronic obstructive pulmonary disease) Home Medications ?Medication ?Instructions ?Recorded ?Last Taken [...] mg PO BID 02/21/25 Unknown History capsule furosemide 20 mg tablet 20 mg PO DAILY 03/08/25 Unkn own History potassium chloride 10 mEq 10 meq PO DAILY 03/08/25 Unk nown History tablet,extended release venlafaxine 225 mg tablet,extended 225 mg PO DAILY Unknown History release 24 hr Allergy/AdvReac Type Severity Reaction Status Date / Time nystatin Allergy Intermediate Rash Verified 02/14/25 14:21 Surgical History Hx of cholecystectomy Hx of appendectomy Social History household members: friend(s) Smoking Status: Current every day smoker tobacco type: cigarettes alcohol intake: current alcohol intake frequency: holidays/special occasions only substance use type: does not use Physical Exam Const alert, oriented x3, no [...] for clubbing or cyanosis Skin Wound Narrative: The wound on the patient's right pretibial surface remains healed and epithelialized. There is no sign of infection or [...] was completed: No debridement was completed today (There are no open wounds or ulcerations.) Post-Debridement Measurements and Additional Note: Post-Debridement Measurements/Treatment [facility] Nurse 1 - General Ulcer Assessment Start: 03/14/25 13:53 Freq: Status: Active Protocol: PAOLO Activity Type Activity Date Activity User E-sign Co-sign Detail Recorded Client Recorded Date Recorded By Document 03/14/25 13:53 [facility] [id number] 03/14/25 14:07 [facility] 03/14/25 13:53 - Today's Visit Information Type of service Follow-up Visit (Physician/SWITCHBOARD AND CONTROL ROOM OPERATOR ) Arrival Mode Ambulatory Transfer Assistance None Patient Identification Verified (Name & Yes ) Patient Requires Transmission-Based No Precautions Vital Signs Temperature (97.8 F-99.1 F) 97.1 F L Temperature Source Temporal Pulse Rate (60-100) 74 Pulse Location Monitor Respiratory Rate (12-18) 20 H Respiratory rate source Observation Oxygen Delivery Method Room Air Blood Pressure (90/60-120/80) 163/84 H Blood Pressure Mean 110 Source Monitor Position Sitting Blood Pressure Location Left Arm History Since [...] Yes Has compression in place as prescribed No Has offloadiing in place as prescribed N/A Experienced any changes in pain level or No management Left Footwear Regular Shoe Right Footwear Regular Shoe Pain Scale: 0-10 Numeric Is Patient Pain Free? Yes [facility] Nurse 1 - General Ulcer Measurement Start: 03/14/25 13:53 Freq: Status: Active Protocol: Activity Type Activity Date Activity User E-sign Co-sign Detail Recorded Client Recorded Date Recorded By Document 03/14/25 13:53 [facility] [id number] 03/14/25 14:07 [facility] 03/14/25 13:53 Wound Center Nurse 1 1-right de souza -Combined with other wound No -Current Size (cm) - Length 0.1 -Current Size (cm) - Width 0.1 -Current Size (cm) - Depth 0.1 -Total Square Cm 0.01 -Date of Last Picture (Recall this 03/14/25 field) -Photo Taken Yes -Epithelialization Large 67-100% -Texture (Brandy-wound Skin Appearance) Assessed -Moisture (Brandy-wound Skin Appearance) Assessed -Color (Brandy-wound Skin Appearance) Assessed -Temperature (Brandy-wound Skin No Abnormality Appearance) (Pt Warm) -Tenderness on Palpation (Brandy-wound No Skin Appearance) -Ulcer Cleansing Rinsed/ Irrigated with Saline -Foul Odor after Cleansing No Lower Limb Edema Present Yes Right Calf (cm) 41.3 Right Ankle (cm) 20.4 - Nurse 2 - General Ulcer CM Notes Start: 03/14/25 13:53 Freq: Status: Active Protocol: Activity Type Activity Date Activity User E-sign Co-sign Detail Recorded Client Recorded Date Recorded By Document 03/14/25 14:12 [id number] 03/14/25 14:13 03/14/25 14:12 Wound Center Nurse 2 1-right de souza -Correct Patient Yes -Correct Side, Site, Position No -Correct Procedure No -Procedure Performed No -Post Debridement (cm) - Length 0 -Post Debridement (cm) - Width 0 -Post Debridement (cm) - Depth 0 -Total Square (Post) (cm) 0 -Area of Debridement (cm) - Length 0 -Area of Debridement (cm) - Width 0 -Total Square (Area) (cm) 0 -Wound/Ulcer Outcome Healed- Epithelialized Pain Scale: 0-10 Numeric Is Patient Pain Free? Yes - Nurse 3 - General Ulcer D/C NN Start: 03/14/25 13:53 Freq: Status: Active Protocol: Activity Type Activity Date Activity User E-sign Co-sign Detail Recorded Client Recorded Date Recorded By Document 03/14/25 14:30 [facility] 04.21.25.7 03/14/25 14:31 [facility] 03/14/25 14:30 Wound Care Center Nurse 3 BLE -Tubular Bandage Double Layer -Size of Tubigrip Used Size E -Size E ($) 2 Treatment Response Procedure Tolerated Well Pain Scale: 0-10 Numeric Is Patient Pain Free? Yes WC - Visit Discharge Discharge Condition Stable Ambulatory Status Ambulatory Transportation Private Auto Accompanied by girlfriend Charges/Coding Visit Charges Office Visits / Consults: 84093 OV L3 Est 20min Assessment/Plan Assessment/Plan (1) [...] (pediatric) PLAN: Plan This is a morbidly obese, diabetic female with multiple pre-existing medical problems. The patient initially presented with a traumatic wound on the right pretibial surface, the origin of which was due to trauma in November 2024. According to the patient, a prior culture was positive for Staph aureus, and the patient completed a course of Bactrim and Levaquin orally. The patient has been counseled to discontinue her smoking habit. Weight loss and optimization of her nutritional intake and glycemic control has also been encouraged. A dietary consultation was undertaken recently. The appropriate conservative measures [...] Activity has been encouraged. The patient has obtained graduated compression stockings of 20 to 30 mmHg compression, ordered on the Internet. However, she now claims that they do not fit properly. Therefore, she has been provided a prescription for knee-high graduated compression stockings of 20 to 30 mmHg compression, which are to be obtained and donned on a daily basis. She has been encouraged to purchase the stockings at a local medical supply store, where she can be properly measured and fitted for the stockings. The patient's wound is now healed, and the patient is to be discharged. She is to follow-up henceforth on an as needed basis. Total time: 22 minutes 03/17/25 1344 <Electronically signed by Russ Mancuso MD> Cosigner Signature (if applicable): CC: ~ Signed [facility] Work Phone: [phone]) 739-728209-05-2025 History and physical note [facility] [address] [place] [address] H&P Exam - Wound Care 03/17/25 1334 MR#: [id number] Acct: [id number] Name: BHUPENDRA HEBERT Rep #:[id number] : 1980 44 From: Russ Ramirez PCP: Akilah Wiggins OVERHEAD WORKER-C Status:REG RCR Location: History of Present Illness Date of Service: 03/14/25 Chief Complaint: Traumatic wound of the right [...] treated in various medical facilities, including the [facility] Emergency Department and the Emergency Department at the [facility]. She was seen at the [facility] ER on January 02, 2025, at which time she was treated with a prescription for [id number] mg p.o. every 6 hours for 10 days. More recently, the patient was evaluated in the Emergency Department at the [facility] on February 07, at which time [...] denies a history of lower extremity thrombophlebitis. 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 Asthma Tobacco abuse Schizophrenia ADHD Hyperlipidemia GERD (gastroesophageal reflux disease) Toxoplasmosis chorioretinitis COPD (chronic obstructive pulmonary disease) Home Medications ?Medication ?Instructions ?Recorded ?Last Taken [...] mg PO BID 02/21/25 Unknown History capsule furosemide 20 mg tablet 20 mg PO DAILY 03/08/25 Unkn own History potassium chloride 10 mEq 10 meq PO DAILY 03/08/25 Unk nown History tablet,extended release venlafaxine 225 mg tablet,extended 225 mg PO DAILY Unknown History release 24 hr Allergy/AdvReac Type Severity Reaction Status Date / Time nystatin Allergy Intermediate Rash Verified 02/14/25 14:21 Surgical History Hx of cholecystectomy Hx of appendectomy Social History household members: friend(s) Smoking Status: Current every day smoker tobacco type: cigarettes alcohol intake: current alcohol intake frequency: holidays/special occasions only substance use type: does not use Physical Exam Const alert, oriented x3, no [...] for clubbing or cyanosis Skin Wound Narrative: The wound on the patient's right pretibial surface remains healed and epithelialized. There is no sign of infection or [...] was completed: No debridement was completed today (There are no open wounds or ulcerations.) Post-Debridement Measurements and Additional Note: Post-Debridement Measurements/Treatment - Nurse 1 - General Ulcer Assessment Start: 03/14/25 13:53 Freq: Status: Active Protocol: YAZAN.LOWEXT Activity Type Activity Date Activity User E-sign Co-sign Detail Recorded Client Recorded Date Recorded By Document 03/14/25 13:53 [facility] [id number] 03/14/25 14:07 [facility] 03/14/25 13:53 - Today's Visit Information Type of service Follow-up Visit (Physician/SWITCHBOARD AND CONTROL ROOM OPERATOR ) Arrival Mode Ambulatory Transfer Assistance None Patient Identification Verified (Name & Yes ) Patient Requires Transmission-Based No Precautions Vital Signs Temperature (97.8 F-99.1 F) 97.1 F L Temperature Source Temporal Pulse Rate (60-100) 74 Pulse Location Monitor Respiratory Rate (12-18) 20 H Respiratory rate source Observation Oxygen Delivery Method Room Air Blood Pressure (90/60-120/80) 163/84 H Blood Pressure Mean 110 Source Monitor Position Sitting Blood Pressure Location Left Arm History Since [...] Yes Has compression in place as prescribed No Has offloadiing in place as prescribed N/A Experienced any changes in pain level or No management Left Footwear Regular Shoe Right Footwear Regular Shoe Pain Scale: 0-10 Numeric Is Patient Pain Free? Yes YAZAN - Nurse 1 - General Ulcer Measurement Start: 03/14/25 13:53 Freq: Status: Active Protocol: Activity Type Activity Date Activity User E-sign Co-sign Detail Recorded Client Recorded Date Recorded By Document 03/14/25 13:53 [facility] [id number] 03/14/25 14:07 [facility] 03/14/25 13:53 Wound Center Nurse 1 1-right de souza -Combined with other wound No -Current Size (cm) - Length 0.1 -Current Size (cm) - Width 0.1 -Current Size (cm) - Depth 0.1 -Total Square Cm 0.01 -Date of Last Picture (Recall this 03/14/25 field) -Photo Taken Yes -Epithelialization Large 67-100% -Texture (Brandy-wound Skin Appearance) Assessed -Moisture (Brandy-wound Skin Appearance) Assessed -Color (Brandy-wound Skin Appearance) Assessed -Temperature (Brandy-wound Skin No Abnormality Appearance) (Pt Warm) -Tenderness on Palpation (Brandy-wound No Skin Appearance) -Ulcer Cleansing Rinsed/ Irrigated with Saline -Foul Odor after Cleansing No Lower Limb Edema Present Yes Right Calf (cm) 41.3 Right Ankle (cm) 20.4 YAZAN - Nurse 2 - General Ulcer CM Notes Start: 03/14/25 13:53 Freq: Status: Active Protocol: Activity Type Activity Date Activity User E-sign Co-sign Detail Recorded Client Recorded Date Recorded By Document 03/14/25 14[facility]12 [id number]/14/25 14:13 03/14/25 14:12 Wound Center Nurse 2 1-right de souza -Correct Patient Yes -Correct Side, Site, Position No -Correct Procedure No -Procedure Performed No -Post Debridement (cm) - Length 0 -Post Debridement (cm) - Width 0 -Post Debridement (cm) - Depth 0 -Total Square (Post) (cm) 0 -Area of Debridement (cm) - Length 0 -Area of Debridement (cm) - Width 0 -Total Square (Area) (cm) 0 -Wound/Ulcer Outcome Healed- Epithelialized Pain Scale: 0-10 Numeric Is Patient Pain Free? Yes - Nurse 3 - General Ulcer D/C NN Start: 03/14/25 13:53 Freq: Status: Active Protocol: Activity Type Activity Date Activity User E-sign Co-sign Detail Recorded Client Recorded Date Recorded By Document 03/14/25 14:30 [facility] 10.10.25.7 03/14/25 14:31 [facility] 03/14/25 14:30 Wound Care Center Nurse 3 BLE -Tubular Bandage Double Layer -Size of Tubigrip Used Size E -Size E ($) 2 Treatment Response Procedure Tolerated Well Pain Scale: 0-10 Numeric Is Patient Pain Free? Yes WC - Visit Discharge Discharge Condition Stable Ambulatory Status Ambulatory Transportation Private Auto Accompanied by girlfriend Charges/Coding Visit Charges Office Visits / Consults: 45129 OV L3 Est 20min Assessment/Plan Assessment/Plan (1) [...] (pediatric) PLAN: Plan This is a morbidly obese, diabetic female with multiple pre-existing medical problems. The patient initially presented with a traumatic wound on the right pretibial surface, the origin of which was due to trauma in November 2024. According to the patient, a prior culture was positive for Staph aureus, and the patient completed a course of Bactrim and Levaquin orally. The patient has been counseled to discontinue her smoking habit. Weight loss and optimization of her nutritional intake and glycemic control has also been encouraged. A dietary consultation was undertaken recently. The appropriate conservative measures relative to the management of chronic swelling and edema in the lower extremitieshave been discussed with the patient in detail. The patient has been encouraged to elevate her lower extremities as much as possible. Elevation is to be during both daytime and nighttime hours. Elevation is to be to heart level, or higher. Prolonged idle sitting has been discouraged. Activity has been encouraged. The patient has obtained graduated compression stockings of 20 to 30 mmHg compression, ordered on the Internet. However, she now claims that they do not fit properly. Therefore, she has been provided a prescription for knee-high graduated compression stockings of 20 to 30 mmHg compression, which are to be obtained and donned on a daily basis. She has been encouraged to purchase the stockings at a local medical supply store, where she can be properly measured and fitted for the stockings. The patient's wound is now healed, and the patient is to be discharged. She is to follow-uphenceforth on an as needed basis. Total time: 22 minutes 03/17/25 1344 Cosigner Signature (if applicable): CC: ~ Signed [facility]08-21-2025 History and physical note Author Russ Mancuso [facility] Note Date/Time March 02, 2025 5: 19pm [facility] [address] [place] [address] H&P Exam - Wound Care 03/02/25 1713 MR#: [id number] Acct: [id number] Name: BHUPENDRA HEBERT Rep #:[id number] : 1980 44 From: Russ Ramirez PCP: Akilah Wiggins OVERHEAD WORKER-C Status:REG RCR Location: History of Present Illness [...] treated in various medical facilities, including the [facility] Emergency Department and the Emergency Department at the [facility]. She was seen at the [facility] ER on January 02, 2025, at which time she was treated with a prescription for cephalexin 500 mg p.o. every 6 hours for 10 days. More recently, the patient was evaluated in the Emergency Department at the [facility] on February 07, at which time [...] denies a history of lower extremity thrombophlebitis. [facility] Medical History Dependent edema Obstructive sleep [...] 21 mg capsule 21 mg PO DAILY 08/05/25 Unk nown History (Caplyta) omega-3 acid ethyl [...] Start: 02/14/25 14:00 Freq: Status: Active Protocol: YAZAN.LOWEXSary Activity Type Activity Date Activity User E-sign Co-sign Detail Recorded Client Recorded Date Recorded By Document 02/14/25 14:00 JF [id number] 02/14/25 14:17 JF Document 02/17/25 10:22 RB [id number] 02/17/25 10:24 RB Document 02/21/25 11:38 BMF [id number] 02/21/25 11:44 BMF Document 02/24/25 13:24 DS [id number] 02/24/25 13:25 DS Document 02/28/25 13:55 KW [id number] 02/28/25 13:57 KW 02/14/25 02/17/25 02/21/25 14:00 10:22 11:38 - Today's Visit Information Type of service Initial Visit Nurse-only Follow-up Visit Visit (Physician/SWITCHBOARD AND CONTROL ROOM OPERATOR ) Arrival Mode Ambulatory Ambulatory Ambulatory Transfer Assistance None None Accompanied by friend PHOTOENGRAVING APPRENTICE PARTNER Patient Identification Verified (Name & Yes [...] & Hygeine No Communication Assessment Preferred language Cymraes Able to Read Yes Able to Write [...] in Ability to Perform Denies Any Declines Culture/Alevism/[place] Cultural/Alevism Needs that may affect No Treatment Plan Would you allow our hospital senior audit manager to No meet you for the purpose of spiritual/ emotional support? [place] Winder to contact place of congregational No Teaching: Wound Center [facility] Orientation/ Contacting Physician -Person Taught Patient,Family -Teaching Method Discussion, Demonstration -Response to teaching Return Demonstration, Verbalize Understanding 02/24/25 02/28/25 13:24 13:55 - Today's Visit Information Type of service Nurse-only Follow-up Visit Visit (Physician/SWITCHBOARD AND CONTROL ROOM OPERATOR ) Arrival Mode Ambulatory Ambulatory Transfer Assistance [...] Assessment Recent Decline in Ability to Perform Culture/Alevism/[place] Cultural/Alevism Needs that may affect Treatment Plan Would you allow our hospital senior audit manager to meet you for the purpose of spiritual/ emotional support? [place] to contact place of congregational Teaching: Wound Center [facility] Orientation/ Contacting Physician -Person Taught -Teaching Method -Response to teaching WC - Nurse 1 - General Ulcer Measurement Start: 02/14/25 14:00 Freq: Status: Active Protocol: Activity Type Activity Date Activity User E-sign Co-sign Detail Recorded Client Recorded Date Recorded By Document 02/14/25 14:00 JF [id number] 02/14/25 14:17 JF Document 02/17/25 10:22 RB [id number] 02/17/25 10:24 RB Document 02/21/25 11:38 BMF [id number] 02/21/25 11:44 BMF Document 02/28/25 13:55 KW [id number] 02/28/25 13:57 KW 02/14/25 02/17/25 02/21/25 14:00 [...] Large (67-100%) Small (1-33%) -Granulation Quality Pale [place] Red -Slough/Fibrin Yes Yes Yes -Necrosis Amt [...] Calf (cm) 40.2 Right Ankle (cm) 20.5 - Nurse 2 - General Ulcer CM Notes Start: 02/14/25 14:00 Freq: Status: Active Protocol: Activity Type Activity Date Activity User E-sign Co-sign Detail Recorded Client Recorded Date Recorded By Document 02/14/25 14:45 DS [id number] 02/14/25 14:48 DS Document 02/21/25 12:11 [id number] 02/21/25 12:15 Document 02/28/25 14:04 [facility] [id number] 02/28/25 14:15 [facility] 02/14/25 02/21/25 02/28/25 14:45 12:11 14:04 Wound [...] Pain Free? Yes Yes Yes WC - Nurse 3 - General Ulcer D/C NN Start: 02/14/25 14:00 Freq: Status: Active Protocol: Activity Type Activity Date Activity User E-sign Co-sign Detail Recorded Client Recorded Date Recorded By Document 02/14/25 16:02 KW [id number] 02/14/25 16:03 KW Document 02/17/25 10:22 RB [id number] 02/17/25 10:24 RB Document 02/21/25 12:25 KW [id number] 02/21/25 12:26 KW Document 02/24/25 13:24 DS [id number] 02/24/25 13:25 DS Document 02/28/25 14:24 [facility] [id number] 02/28/25 14:24 BMF 02/14/25 02/17/25 02/21/25 16:02 [...] Charges/Coding Visit Charges Office Visits / Consults: 48363 OV L3 Est 20min Assessment/Plan Assessment/Plan (1) [...] dietary modification. Total time: 22 minutes 03/02/25 8773 <Electronically signed by Russ Mancuso MD> Cosigner Signature (if applicable): CC: ~ Signed [facility] Work Phone: 1(668) 370-937808-21-2025 History and physical note [facility] [address] [place] [address] H&P Exam - Wound Care 03/02/25 1713 MR#: [id number] Acct: [id number] Name: BHUPENDRA HEBERT Rep #:[id number] : 1980 44 From: Russ Ramirez PCP: Akilah Wiggins, OVERHEAD WORKER-C Status:REG RCR Location: History of Present Illness [...] treated in various medical facilities, including the [facility] Emergency Department and the Emergency Department at the [facility]. She was seen at the [facility] ER on January 02, 2025, at which time she was treated with a prescription for [id number] mg p.o. every 6 hours for 10 days. More recently, the patient was evaluated in the Emergency Department at the [facility] on February 07, at which time [...] denies a history of lower extremity thrombophlebitis. [facility] Medical History Dependent edema Obstructive sleep apnea [...] Post-Debridement Measurements and Additional Note: Post-Debridement Measurements/Treatment WC - Nurse 1 - General Ulcer Assessment Start: 02/14/25 14:00 Freq: Status: Active Protocol: YAZAN.LOWEXT Activity Type Activity Date Activity User E-sign Co-sign Detail Recorded Client Recorded Date Recorded By Document 02/14/25 14:00 JF [id number] 02/14/25 14:17 JF Document 02/17/25 10:22 RB [id number] 02/17/25 10:24 RB Document 02/21/25 11:38 BMF [id number] 02/21/25 11:44 BMF Document 02/24/25 13:24 DS [id number] 02/24/25 13:25 DS Document 02/28/25 13:55 KW [id number] 02/28/25 13:57 KW 02/14/25 02/17/25 02/21/25 14:00 10:22 11:38 WC - Today's Visit Information Type of service Initial Visit Nurse-only Follow-up Visit Visit (Physician/SWITCHBOARD AND CONTROL ROOM OPERATOR ) Arrival Mode Ambulatory Ambulatory Ambulatory Transfer Assistance None None Accompanied by friend PHOTOENGRAVING APPRENTICE PARTNER Patient Identification Verified (Name & Yes [...] & Hygeine No Communication Assessment Preferred language Cymraes Able to Read Yes Able to Write [...] in Ability to Perform Denies Any Declines Culture/Alevism/[place] Cultural/Alevism Needs that may affect No Treatment Plan Would you allow our hospital senior audit manager to No meet you for the purpose of spiritual/ emotional support? [place] to contact place of congregational No Teaching: Wound Center [facility] Orientation/ Contacting Physician -Person Taught Patient,Family -Teaching Method Discussion, Demonstration -Response to teaching Return Demonstration, Verbalize Understanding 02/24/25 02/28/25 13:24 13:55 - Today's Visit Information Type of service Nurse-only Follow-up Visit Visit (Physician/SWITCHBOARD AND CONTROL ROOM OPERATOR ) Arrival Mode Ambulatory Ambulatory Transfer Assistance [...] Assessment Recent Decline in Ability to Perform Culture/Alevism/[place] Cultural/Alevism Needs that may affect Treatment Plan Would you allow our hospital senior audit manager to meet you for the purpose of spiritual/ emotional support? [place] W[place] to contact place of congregational Teaching: Wound Center [facility] Orientation/ Contacting Physician -Person Taught -Teaching Method -Response to teaching - Nurse 1 - General Ulcer Measurement Start: 02/14/25 14:00 Freq: Status: Active Protocol: Activity Type Activity Date Activity User E-sign Co-sign Detail Recorded Client Recorded Date Recorded By Document 02/14/25 14:00 JF [id number] 02/14/25 14:17 JF Document 02/17/25 10:22 RB [id number] 02/17/25 10:24 RB Document 02/21/25 11:38 [facility] [id number] 02/21/25 11:44 BMF Document 02/28/25 13:55 KW [id number] 02/28/25 13:57 KW 02/14/25 02/17/25 02/21/25 14:00 [...] Large (67-100%) Small (1-33%) -Granulation Quality Pale [place] Red -Slough/Fibrin Yes Yes Yes -Necrosis Amt [...] Date Recorded By Document 02/14/25 14:45 DS [id number] 02/14/25 14:48 DS Document 02/21/25 12:11 [id number] 02/21/25 12:15 Document 02/28/25 14:04 [facility] [id number] 02/28/25 14:15 [facility] 02/14/25 02/21/25 02/28/25 14:45 12:11 14:04 Wound [...] Date Recorded By Document 02/14/25 16:02 KW [id number] 02/14/25 16:03 KW Document 02/17/25 10:22 RB [id number] 02/17/25 10:24 RB Document 02/21/25 12:25 KW [id number] 02/21/25 12:26 KW Document 02/24/25 13:24 DS [id number] 02/24/25 13:25 DS Document 02/28/25 14:24 BMF [id number] 02/28/25 14:24 BMF 02/14/25 02/17/25 02/21/25 16:02 [...] Charges/Coding Visit Charges Office Visits / Consults: 80977 OV L3 Est 20min Assessment/Plan Assessment/Plan (1) [...] dietary modification. Total time: 22 minutes 03/02/25 5025 Cosigner Signature (if applicable): CC: ~ Signed [facility]08-19-2025 Evaluation note* Diagnosis Onset Date Resolution [...] 1:45pm Hx of cholecystectomy inactive Feb 1:45pm [facility] Work Phone: 1(163) 773-578608-19-2025 Evaluation note* Diagnosis Onset Date Resolution Status [...] (gastroesophageal reflu x disease) acute March 14 025 11:22am Hyperlipidemia acute March 14, 2025 11:22am [...] 11:22am Hx of cholecystectomy inactive Mar 11:22am [facility] Work Phone: 1(735) 997-288108-19-2025 Evaluation note* Diagnosis Onset Date Resolution Status [...] diastolic dysfunction acute March 29, 2025 2:06pm [facility] Work Phone: 1(374) 667-290308-18-2025 Telephone encounter Note* Telephone Encounter - Ne Barrera MA - 02/27/2025 4:09 PM EDT [employer] message with results below viewed by pt 02/27/25 at 3:46 pm. Ne Barrera MA [facility]08-18-2025 Miscellaneous Notes* Telephone Encounter - Ne Barrera MA - 02/27/2025 4:09 PM EDT [employer] message with results below viewed by pt 02/27/25 at 3:46 pm. Ne Barrera MA * Telephone Encounter - Rima Mcrae MA - 02/27/2025 3:20 PM EDT Pt active on bulletn.- message sent. Will leave encounter open until pt views Rima Mcrae MA * Telephone Encounter - Akilah Wiggins APRN.CNP - 02/27/2025 8:07 AM EDT Please let patient know her mammogram is negative. Patient should continue with annual screenings. * Result Encounter Note - GIULIA STANFORD - 02/17/2025 9:00 AM EDT Message notifying patient via [facility]. Provided number for her to schedule with Pulmonology. Giulia Stanford LPN * Telephone Encounter - Akilah Wiggins APRN.CNP - 02/16/2025 3:32 PM EDT Please let patient know her lung tests show restrictive airway disease. Recommend follow up with pulmonology. [facility] Telephone encounter Note * Telephone Encounter - Rima Mcrae MA - 02/27/2025 3:20 PM EDT Pt active on bulletn.- message sent. Will leave encounter open until pt views Rima Mcrae MA [facility]08-18-2025 Telephone encounter Note* Telephone Encounter - Any Mendieta RN - 02/27/2025 9:31 AM EDT Karla from [facility] calls and is requesting referral, office visit notes, face sheet, and results to be faxed to [phone]. Faxed as requesting. Any Mendieta RN [facility]08-18-2025 Miscellaneous Notes* Telephone Encounter - Any Mendieta RN - 02/27/2025 9:31 AM EDT Karla from [facility] calls and is requesting referral, office visit notes, face sheet, and results to be faxed to [phone]. Faxed as requesting. Any Mendieta RN [facility] Telephone encounter Note * Telephone Encounter - Akilah Wiggins APRN.CNP - 02/27/2025 8:07 AM EDT Please let patient know her mammogram is negative. Patient should continue with annual screenings. [facility]08-15-2025 History of Present illness Narrative* Kell Jaquez Mammo Tech - 02/24/2025 9:10 AM EDT Radiology Service Progress Note PATIENT NAME: Bhupendra Hebert DATE OF SERVICE: February 24, 2025 [...] PATIENT PRESENTS WITH AN IMPLANTABLE OR ATTACHED HUSKER OPERATOR: No RADIOLOGY DEPARTMENT: Mammography PERIPHERAL IV DATA: Not applicable SIGNED BY: Ilir Ramirez February 24, 2025 9:59 AM documented in [facility]08-[facility]-2025 NoteHNO ID: [id number] Author: KELL JAQUEZ Mammo Tech Service: ? Author Type: Career Development Associate Type: Progress Notes Filed: 02/24/2025 10:00 Note Text: Radiology Service Progress Note PATIENT NAME: Bhupendra Hebert DATE OF SERVICE: February 24, 2025 [...] PATIENT PRESENTS WITH AN IMPLANTABLE OR ATTACHED HUSKER OPERATOR: No RADIOLOGY DEPARTMENT: Mammography PERIPHERAL IV DATA: Not applicable SIGNED BY: Kell Jaquez [email or web address] February 24, 2025 9:59 [facility]08-13-2025 History and physical note Author Russ Mancuso [facility] Note Date/Time February 22, 2025 6: 41pm [facility] [address] [place] [address] H&P Exam - Wound Care 02/22/25 1830 MR#: [id number] Acct: [id number] Name: BHUPENDRA HEBERT Rep #:[id number] : 1980 44 From: Russ Ramirez PCP: Akilah Wiggins OVERHEAD WORKER-C Status:REG RCR Location: History of Present Illness [...] treated in various medical facilities, including the [facility] Emergency Department and the Emergency Department at the [facility]. She was seen at the [facility] ER on January 02, 2025, at which time she was treated with a prescription for cephalexin 500 mg p.o. every 6 hours for 10 days. More recently, the patient was evaluated in the Emergency Department at the [facility] on February 07, at which time [...] denies a history of lower extremity thrombophlebitis. [facility] Medical History Dependent edema Obstructive sleep [...] Recorded Date Recorded By Document 02/14/25 14:00 [id number] 02/14/25 14:17 Document 02/17/25 10:22 RB [id number] 02/17/25 10:24 RB Document 02/21/25 11:38 [facility] [id number] 02/21/25 11:44 [facility] 02/14/25 02/17/25 02/21/25 14:00 10:22 11:38 - Today's Visit Information Type of service Initial Visit Nurse-only Follow-up Visit Visit (Physician/SWITCHBOARD AND CONTROL ROOM OPERATOR ) Arrival Mode Ambulatory Ambulatory Ambulatory Transfer Assistance None None Accompanied by friend PHOTOENGRAVING APPRENTICE PARTNER Patient Identification Verified (Name & Yes [...] & Hygeine No Communication Assessment Preferred language Cymraes Able to Read Yes Able to Write [...] in Ability to Perform Denies Any Declines Culture/Alevism/[place]oil [place] Cultural/Alevism Needs that may affect No Treatment Plan Would you allow our hospital senior audit manager to No meet you for the purpose of spiritual/ emotional support? [place] W[place] to contact place of congregational No Teaching: Wound Center [facility] Orientation/ Contacting Physician -Person Taught Patient,Family -Teaching Method Discussion, Demonstration -Response to teaching Return Demonstration, Verbalize Understanding - Nurse 1 - General Ulcer Measurement Start: 02/14/25 14:00 Freq: Status: Active Protocol: Activity Type Activity Date Activity User E-sign Co-sign Detail Recorded Client Recorded Date Recorded By Document 02/14/25 14:00 JF [id number] 02/14/25 14:17 JF Document 02/17/25 10:22 RB [id number] 02/17/25 10:24 RB Document 02/21/25 11:38 [facility] [id number] 02/21/25 11:44 BMF 02/14/25 02/17/25 02/21/25 14:00 10:22 11:38 Wound [...] Large (67-100%) Small (1-33%) -Granulation Quality Pale [place] Red -Slough/Fibrin Yes Yes Yes -Necrosis Amt [...] Date Recorded By Document 02/14/25 14:45 DS [id number] 02/14/25 14:48 DS Document 02/21/25 12:11 JF [id number] 02/21/25 12:15 JF 02/14/25 02/21/25 14:45 12:11 [...] Date Recorded By Document 02/14/25 16:02 KW [id number] 02/14/25 16:03 KW Document 02/17/25 10:22 RB [id number] 02/17/25 10:24 RB Document 02/21/25 12:25 KW [id number] 02/21/25 12:26 KW 02/14/25 02/17/25 02/21/25 16:02 [...] Charges/Coding Visit Charges Office Visits / Consults: 93586 OV L3 Est 20min Assessment/Plan Assessment/Plan (1) [...] knee-high length. Total time: 25 minutes 02/22/25 0012 <Electronically signed by Russ Mancuso MD> Cosigner Signature (if applicable): CC: ~ Signed [facility] Work Phone: 1(750) 744-984108-13-2025 History and physical note [facility] [address] [place] [address] H&P Exam - Wound Care 02/22/25 1830 MR#: [id number] Acct: [id number] Name: BHUPENDRA HEBERT Rep #:[id number] : 1980 44 From: Russ Ramirez PCP: Akilah Wiggins, OVERHEAD WORKER-C Status:REG RCR Location: History of Present Illness [...] treated in various medical facilities, including the [facility] Emergency Department and the Emergency Department at the [facility]. She was seen at the [facility] ER on January 02, 2025, at which time she was treated with a prescription for tyhahjvbik675 mg p.o. every 6 hours for 10 days. More recently, the patient was evaluated in the Emergency Department at the [facility] on February 07, at which time [...] denies a history of lower extremity thrombophlebitis. [facility] Medical History Dependent edema Obstructive sleep [...] Start: 02/14/25 14:00 Freq: Status: Active Protocol: YAZAN.RACHNA Activity Type Activity Date Activity User E-sign Co-sign Detail Recorded Client Recorded Date Recorded By Document 02/14/25 14:00 JF [id number] 02/14/25 14:17 JF Document 02/17/25 10:22 RB [id number] 02/17/25 10:24 RB Document 02/21/25 11:38 BMF [id number] 02/21/25 11:44 BMF 02/14/25 02/17/25 02/21/25 14:00 10:22 11:38 - Today's Visit Information Type of service Initial Visit Nurse-only Follow-up Visit Visit (Physician/SWITCHBOARD AND CONTROL ROOM OPERATOR ) Arrival Mode Ambulatory Ambulatory Ambulatory Transfer Assistance None None Accompanied by friend PHOTOENGRAVING APPRENTICE PARTNER Patient Identification Verified (Name & Yes [...] & Hygeine No Communication Assessment Preferred language Cymraes Able to Read Yes Able to Write [...] in Ability to Perform Denies Any Declines Culture/Alevism/[place] Cultural/Alevism Needs that may affect No Treatment Plan Would you allow our hospital senior audit manager to No meet you for the purpose of spiritual/ emotional support? [place] to contact place of congregational No Teaching: Wound Center [facility] Orientation/ Contacting Physician -Person Taught Patient,Family -Teaching Method Discussion, Demonstration -Response to teaching Return Demonstration, Verbalize Understanding [facility] Nurse 1 - General Ulcer Measurement Start: 02/14/25 14:00 Freq: Status: Active Protocol: Activity Type Activity Date Activity User E-sign Co-sign Detail Recorded Client Recorded Date Recorded By Document 02/14/25 14:00 JF [id number] 02/14/25 14:17 JF Document 02/17/25 10:22 RB [id number] 02/17/25 10:24 RB Document 02/21/25 11:38 BM [id number] 02/21/25 11:44 BMF 02/14/25 02/17/25 02/21/25 14:00 10:22 11:38 Wound [...] Large (67-100%) Small (1-33%) -Granulation Quality Pale [place] Red -Slough/Fibrin Yes Yes Yes -Necrosis Amt [...] Date Recorded By Document 02/14/25 14:45 DS [id number] 02/14/25 14:48 DS Document 02/21/25 12:11 AURELIO [id number] 02/21/25 12:15 AURELIO 02/14/25 02/21/25 14:45 12:11 Wound Center Nurse [...] Recorded Date Recorded By Document 02/14/25 16:02 [id number] 02/14/25 16:03 KW Document 02/17/25 10:22 RB [id number] 02/17/25 10:24 RB Document 02/21/25 12:25 KW [id number] 02/21/25 12:26 02/14/25 02/17/25 02/21/25 16:02 10:22 12:25 Wound [...] Charges/Coding Visit Charges Office Visits / Consults: 14874 OV L3 Est 20min Assessment/Plan Assessment/Plan (1) [...] Cosigner Signature (if applicable): CC: ~ Signed [facility]08-13-2025 Telephone encounter Note* Telephone Encounter - Lucien - 02/22/2025 5:06 PM EDT Record ID: [id number] Patient name: Bhupendra Hebert Date: February 22, 2025 - 12:06 Administered by: LUCIEN Protocol: -> Great! Now we are in a secure chat environment. Protecting your health information is important to us. Ok, let's get started. Please verify your name and date of . Please click on the button with your first name. -> Bhupendra Got it. On to the next question... [...] for any questionsor concerns.Thank you for choosing [facility]! -> Great! Now we are in a secure chat environment. Protecting your health information is important to us. Ok, let's get started. Please verify your name and date of . Please click on the button with your first name. -> Bhupendra Got it. On to the next question... [...] you can expect a call from a [facility] registered nurse within the next business day. Thank you for your time and allowing us tocare for you. We will check in on you over the next four weeks to ensure you continue to recover and support your needs. In the meantime, please reach out to your PCP for any questions or concerns.Thank you for choosing [facility]! -> Great! Now we are in a secure chat environment. Protecting your health information is important to us. Ok, let's get started. Please verify your name and date of . Please click on the button with your first name. -> Bhupendra Got it. On to the next question... [...] liked least about your experience: -> nothing [facility]08-13-2025 Miscellaneous Notes* Telephone Encounter - Lucien - 02/22/2025 5:06 PM EDT Record ID: [id number] Patient name: Bhupendra Hebert Date: February 22, 2025 - 12:06 Administered by: LUCIEN Protocol: -> Great! Now we are in a secure chat environment. Protecting your health information is important to us. Ok, let's get started. Please verify your name and date of . Please click on the button with your first name. -> Bhupendra Got it. On to the next question... [...] for any questionsor concerns.Thank you for choosing [facility]! -> Great! Now we are in a secure chat environment. Protecting your health information is important to us. Ok, let's get started. Please verify your name and date of . Please click on the button with your first name. -> Bhupendra Got it. On to the next question... Select the button with your last name. -> [place] Got it, thank you. Please enter your [...] you can expect a call from a [facility] registered nurse within the next business day. Thank you for your time and allowing us tocare for you. We will check in on you over the next four weeks to ensure you continue to recover and support your needs. In the meantime, please reach out to your PCP for any questions or concerns.Thank you for choosing [facility]! -> Great! Now we are in a secure chat environment. Protecting your health information is important to us. Ok, let's get started. Please verify your name and date of . Please click on the button with your first name. -> Bhupendra Got it. On to the next question... [...] your experience: -> nothing documented in this encounterPome[facility] Hospital08-12-2025 Instructions* Patient Instructions* Akilah Wiggins APRN.CNP - 02/21/2025 4:07 PM EDT -Call shu ENT -Call [facility] documented in this encounterPomerene Hospital08-12-2025 NoteHNO ID: [id number] Author: AKILAH WIGGINS APRN.ADONIS Service: ? Author Type: Nurse Practitioner Type: Progress Notes Filed: 02/21/2025 16:16 Note Text: Transitional Care Management TCM Eligibility Documentation Outreach completed via text messaging service. Provider Documentation Bhupendra Hebert is a 44 year old female [...] on doxycycline. Currently receiving wound care with [facility] wound center. Jaylin boot to right leg. [...] 300 MG 24 HR TAB Akilah Wiggins APRN.[facility]08-12-2025 History of Present illness Narrative* Akilah Wiggins APRN.ADONIS - 02/21/2025 3:46 PM EDT Transitional Care Management TCM Eligibility Documentation Outreach completed via text messaging service. Provider Documentation Bhupendra Hebert is a 44 year old female [...] on doxycycline. Currently receiving wound care with [facility] wound center. Jaylin boot to right leg. [...] 300 MG 24 HR TAB Akilah Wiggins APRN.SWITCHBOARD AND CONTROL ROOM OPERATOR documented in this encounterPomerene Hospital08-11-2025 History of Present illness Narrative* Bhupendra Gaytan, RT(R) - 02/20/2025 4:30 PM EDT Radiology Service Progress Note PATIENT NAME: Bhupendra Hebert DATE OF SERVICE: February 20, 2025 [...] PATIENT PRESENTS WITH AN IMPLANTABLE OR ATTACHED HUSKER OPERATOR: No RADIOLOGY DEPARTMENT: MR; Exam(s) Completed: Head: Routine Brain. Aromatherapy Administered: No PERIPHERAL IV DATA: Not applicable SIGNED BY: RT Ian(R) February 20, 2025 4:07 PM documented in this encounterPomerene Hospital08-11-2025 NoteHNO ID: [id number] Author: BHUPENDRA GAYTAN RT(Tobin) Service: ? Author Type: Technologist Type: Progress Notes Filed: 02/20/2025 16:07 Note Text: Radiology Service Progress Note PATIENT NAME: Bhupendra Hebert DATE OF SERVICE: February 20, 2025 [...] PATIENT PRESENTS WITH AN IMPLANTABLE OR ATTACHED HUSKER OPERATOR: No RADIOLOGY DEPARTMENT: MR; Exam(s) Completed: Head: Routine Brain. Aromatherapy Administered: No PERIPHERAL IV DATA: Not applicable SIGNED BY: RT Ian(R) February 20, 2025 4:07 [facility]08-09-2025 NoteHNO ID: [id number] Author: PALOMO TORRES MD Service: ? Author Type: Physician Type: Progress Notes Filed: 02/18/2025 07:36 Note Text: HISTORY AND PHYSICAL Bhupendra Hebert 1980 REFERRING PHYSICIAN: Akilah Wiggins APRN.* [...] HX INSERTION OF IUD 2023 Placed at [facility] CURRENT MEDICATIONS[2] ALLERGIES: Nystatin PERSONAL HISTORY: SOCIAL [...] Panniculitis (primary encounter diagnosis) (E66.01) Morbid obesity ([facility]) (L03.311) Abdominal wall cellulitis My findings have been communicated to Dr. Akilah Wiggins APRN.CNP via shared medical record. This note will be forwarded to Dr. Akilah Wiggins APRN.CNP. Return to Clinic: The patient is instructed to follow-up with me as needed. 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 No date: PTSD (post-traumatic stress disorder) No date: Schizophrenia ([facility]) No date: Tobacco abuse [2] Current Outpatient [...] HFA (PROVENTIL HFA, VENTOLI (more content not included)...[facility]08-09-2025 History of Present illness Narrative* Palomo Torres MD - 02/18/2025 7:32 AM EDT HISTORY AND PHYSICAL Bhupendra Hebert 1980 REFERRING PHYSICIAN: Akilah Wiggins APRN.* [...] HX INSERTION OF IUD 2023 Placed at [facility] CURRENT MEDICATIONS[2] ALLERGIES: Nystatin PERSONAL HISTORY: SOCIAL [...] Panniculitis (primary encounter diagnosis) (E66.01) Morbid obesity ([facility]) (L03.311) Abdominal wall cellulitis My findings have [...] Asthma with chronic obstructive pulmonary disease (COPD) ([facility]) 11/19/2024: Bilateral corneal abrasions 1995: 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 No date: PTSD (post-traumatic stress disorder) No date: Schizophrenia ([facility]) No date: Tobacco abuse [2] Current Outpatient [...] Grandmother Age of Onset: (Not Specified) Comment: 's Problem: Arthritis Relation: Maternal Grandmother Age of [...] Maria Isabel Goodwin RN documented in this encounterPomerene Hospital08-08-2025 Progress note* Result Encounter Note - GIULIA STANFORD - 02/17/2025 9:00 AM EDT Message notifying patient via [facility]. Provided number for her to schedule with Pulmonology. Giulia Stanford LPN [facility]08-07-2025 NoteHNO ID: [id number] Author: MARIA ISABEL GOODWIN RN Service: ? [...] 2023 Last Colonoscopy: N/A Maria Isabel Goodwin RN[facility] [place] Telephone encounter Note * Telephone Encounter - Akilah Wiggins APRN.CNP - 02/16/2025 3:32 PM EDT Please let patient know her lung tests show restrictive airway disease. Recommend follow up with pulmonology. [facility]08-06-2025 History and physical note Author Russ Mancuso [facility] Note Date/Time February 15, 2025 1:0 9pm [facility] [address] [place] [address] H&P Exam - Wound Care 02/15/25 1231 MR#: [id number] Acct: [id number] Name: BHUPENDRA HEBERT Rep #:[id number] : 1980 44 From: Russ Ramirez PCP: Akilah Wiggins, 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 She was seen at the [facility] ER on January 02, 2025, at which time she was treated with a prescription for cephalexin 500 mg p.o. every 6 hours for 10 days. More recently, the patient was evaluated in the Emergency Department at the [facility] on February 07, at which time [...] denies a history of lower extremity thrombophlebitis. [facility] Medical History (Updated 02/15/25 @ 13:01 [...] Recorded Date Recorded By Document 02/14/25 14:00 [id number] 02/14/25 14:17 02/14/25 14:00 - Today's Visit [...] & Hygeine No Communication Assessment Preferred language [place]ymra[place] Able to Read Yes Able to Write [...] in Ability to Perform Denies Any Declines Culture/Alevism/[place] Cultural/Alevism Needs that may affect No Treatment Plan Would you allow our hospital senior audit manager to No meet you for the purpose of spiritual/ emotional support? [place] to contact place of congregational No Teaching: Wound Center [facility] Orientation/ Contacting Physician -Person Taught Patient,Family -Teaching Method Discussion, Demonstration -Response to teaching Return Demonstration, Verbalize Understanding - Nurse 1 - General Ulcer Measurement Start: 02/14/25 14:00 Freq: Status: Active Protocol: Activity Type Activity Date Activity User E-sign Co-sign Detail Recorded Client Recorded Date Recorded By Document 02/14/25 14:00 [id number] 02/14/25 14:17 JF 02/14/25 14:00 Wound Center Nurse 1 1-right [...] Date Recorded By Document 02/14/25 14:45 DS [id number] 02/14/25 14:48 DS 02/14/25 14:45 Wound Center [...] Date Recorded By Document 02/14/25 16:02 KW [id number] 02/14/25 16:03 KW 02/14/25 16:02 Wound Care [...] Multi Select Codes Visit Charges Office Visit/Consults: 80358 OV L4 New 45 min Integumentary Integumentary CPT Codes: 17918 Therese subq tissue 20 sq cm/< Assessment/Plan [...] for reevaluation. Total time: 48 minutes 02/15/25 1301 <Electronically signed by Russ Mancuso MD> Cosigner Signature (if applicable): CC: ~ Signed [facility] Work Phone: 1([phone]) 511-714308-06-2025 History and physical note [facility] [address] [place] [address] H&P Exam - Wound Care 02/15/25 1231 MR#: [id number] Acct: [id number] Name: BHUPENDRA HEBERT Rep #:[id number] : 1980 44 From: Russ Ramirez PCP: Akilah Wiggins 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 She was seen at the [facility] ER on January 02, 2025, at which time she was treated with a prescription for cephalexin 500 mg p.o. every 6 hours for 10 days. More recently, the patient was evaluated in the Emergency Department at the [facility] on February 07, at which time [...] denies a history of lower extremity thrombophlebitis. [facility] Medical History (Updated 02/15/25 @ 13:01 [...] Post-Debridement Measurements and Additional Note: Post-Debridement Measurements/Treatment WC - Nurse 1 - General Ulcer Assessment Start: 02/14/25 14:00 Freq: Status: Active Protocol: WC.LOWEXT Activity Type Activity Date Activity User E-sign Co-sign Detail Recorded Client Recorded Date Recorded By Document 02/14/25 14:00 AURELIO [id number] 02/14/25 14:17 02/14/25 14:00 - Today's Visit [...] & Hygeine No Communication Assessment Preferred language [place]ymraes Able to Read Yes Able to Write [...] in Ability to Perform Denies Any Declines Culture/Alevism/[place] Cultural/Alevism Needs that may affect No Treatment Plan Would you allow our hospital senior audit manager to No meet you for the purpose of spiritual/ emotional support? [place] to contact place of congregational No Teaching: Wound Center [facility] Orientation/ Contacting Physician -Person Taught Patient,Family -Teaching Method Discussion, Demonstration -Response to teaching Return Demonstration, Verbalize Understanding - Nurse 1 - General Ulcer Measurement Start: 02/14/25 14:00 Freq: Status: Active Protocol: Activity Type Activity Date Activity User E-sign Co-sign Detail Recorded Client Recorded Date Recorded By Document 02/14/25 14:00 AURELIO [id number] 02/14/25 14:17 JF 02/14/25 14:00 Wound Center Nurse 1 1-right [...] Calf (cm) 44 Right Ankle (cm) 20.8 - Nurse 2 - General Ulcer CM Notes Start: 02/14/25 14:00 Freq: Status: Active Protocol: Activity Type Activity Date Activity User E-sign Co-sign Detail Recorded Client Recorded Date Recorded By Document 02/14/25 14:45 JOSE LUIS [id number] 02/14/25 14:48 DS 02/14/25 14:45 Wound Center [...] Date Recorded By Document 02/14/25 16:02 KW [id number] 02/14/25 16:03 KW 02/14/25 16:02 Wound Care [...] Multi Select Codes Visit Charges Office Visit/Consults: 17525 OV L4 New 45 min Integumentary Integumentary CPT Codes: 99941 Therese subq tissue 20 sq cm/< Assessment/Plan [...] Cosigner Signature (if applicable): CC: ~ Signed [facility]08-01-2025 Telephone encounter Note* Telephone Encounter - Lucien - 02/10/2025 5:02 PM EDT Record ID: [id number] Patient name: Bhupendra Hebert Date: February 10, 2025: Administered by: LUCIEN Protocol: -> Great! Now we are in a secure chat environment. Protecting your health information is important to us. Ok, let's get started. Please verify your name and date of . Please click on the button with your first name. -> Bhupendra Got it. On to the next question... [...] any new or worsening symptoms? -> No [facility]08-01-2025 Miscellaneous Notes* Telephone Encounter - Lucien - 02/10/2025 5:02 PM EDT Record ID: [id number] Patient name: Bhupendra Hebert Date: February 10, 2025: Administered by: LUCIEN Protocol: -> Great! Now we are in a secure chat environment. Protecting your health information is important to us. Ok, let's get started. Please verify your name and date of . Please click on the button with your first name. -> Bhupendra Got it. On to the next question... [...] worsening symptoms? -> No documented in this encounterPomerene Hospital07-31-2025 NoteHNO ID: [id number] Author: SUSAN TURNER RN Service: Care Management Author Type: [...] Physician Primary Care Physician Name/Phone: Akilah Wiggins APRN.SWITCHBOARD AND CONTROL ROOM OPERATOR [phone] Additional Information: Discharge written for patient to go home with self care. Patient agreeable to discharge plan and denies needs. Sig other to transport. Bedside nurse updated. SOC sent to PCP. No skilled needs upon DC. SIGNATURE: Susan Turner RN PATIENT NAME: Bhupendra Hebert DATE: February 09, 2025 TIME: 2:00 PMKettering [id number] NoteHNO ID: [id number] Author: BHUPENDRA SALOMON RN Service: Care Management Author Type: Registered Nurse Type: Care Mgt Initial Assessment Filed: 02/08/2025 12:52 Note Text: CARE MANAGEMENT: ASSESSMENT AND DISCHARGE PLAN SERVICE DATE: February 08, 2025 SERVICE TIME: 11:44 am PCP: Akilah Wiggins APRN.SWITCHBOARD AND CONTROL ROOM OPERATOR (confirmed) Primary Contact: Extended Emergency Contact Information Primary Emergency Contact: Shelley Mojica Mobile Relation: Significant other Secondary Emergency Contact: Judith Mojica Mobile Relation: Relative Admission Status: Observation Insurance Provider: [employer]INA GONZALEZ MEDICAID Discharge Planning requested by: Per Department Practice Potential Transition Plans Home, Home Care, Home OT/PT Advance Directives Current Advance Directive: None Project Surveyor Attempted to Assist with AD Completion: Yes [...] Be able to go home, Independent living Kyle of Choice Explained: Kyle of Choice Given: No Reason Not Given: [...] introduced self/role of TCC. Patient presented to [facility] ED for a wound check. Patient with [...] to follow for discharge planning needs. SIGNATURE: Bhupendra Salomon RN PATIENT NAME: Bhupendra Hebert DATE: February 08, 2025 TIME: 12:46 PMKettering [id number] NoteHNO ID: [id number] Author: AUGUST FISHER MD Service: Hospital Medicine [...] Echocardiogram will be ordered August Fisher MD [facility] CHCQM-PHYADV Staff [facility] Clinical Import Managerbutter melter [facility] DEPARTMENT [facility] [place] [employer] MEDICINE PROGRESS NOTE SERVICE DATE: 02/08/2025 SERVICE TIME: 12:01 PM Hospital Medicine/Primary Attending: August Fisher MD NIGHT AND WEEKEND COVERAGE: [employer] COVERAGE: Days: [phone], please page attending physician. Nights: [phone], please page [facility] Healthist Night coverage pager [phone]. Subjective Patient reports no significant pain over RLE wound area, but states she has marked pain upon palpation of the lower abdomen She reports popping her blisters at home to let them heal Denies fever, chills, vomiting. Admits nausea Requesting to go outside to smoke cigarettes but was told she was not allowed Requests Zyrtec for allergies Current Facility-Administered Medications Medication Dose [...] and Airways Line Duration Peripheral 02/08/25 1129 [facility] Left Forearm 20 Gauge <1 day Reviewed [...] Chronic conjunctivitis of both eyes HOSPITAL COURSE: Bhupendra Hebert is a 44 year old female presented with past medical history of asthma/COPD, SAI, GERD, HL (more content not included)... [facility] [id number] NoteHNO ID: [id number] Author: AKILAH WIGGINS APRN.SWITCHBOARD AND CONTROL ROOM OPERATOR Service: ? Author Type: Nurse Practitioner Type: Progress Notes Filed: 02/07/2025 14:39 Note Text: Chief Complaint Patient presents with: Follow Up HPI Bhupendra Hebert is a 44 year old female [...] HX INSERTION OF IUD 2023 Placed at [facility] Family History FAMILY HISTORY Problem Relation Age [...] Tdap) due on 01/24/2035 (more content not included)...[facility]07-29-2025 History of Present illness Narrative* Akilah Wiggins APRN.SWITCHBOARD AND CONTROL ROOM OPERATOR - 02/07/2025 2:25 PM EDT Chief Complaint Patient presents with: Follow Up HPI Bhupendra Hebert is a 44 year old female [...] left eye COPD (chronic obstructive pulmonary disease) ([facility]) Generalized anxiety disorder GERD (gastroesophageal reflux disease) Hyperlipemia MPD syndrome transitions daily and is able to feel transition between personalities coming. PTSD (post-traumatic stress disorder) Schizophrenia ([facility]) Previous Surgical History PAST SURGICAL HISTORY Procedure Laterality Date APPENDECTOMY 12/27/2023 Dr. Granados CHOLECYSTECTOMY HX INSERTION OF IUD 2023 Placed at [facility] Family History FAMILY HISTORY Problem Relation Age [...] Verbalized understanding, significant other to transport to [facility] ER. Akilah Wiggins APRN.ADONIS documented in this encounterPomerene Hospital07-25-2025 Telephone encounter Note * Telephone Encounter - Tierney Espino LPN - 02/03/2025 2:32 PM EDT Patient returned call and she had sent my chart message and picture of her leg to Leyla Wiggins OVERHEAD WORKER. Patient said she completed her 7 day [...] Patient said she will go to ER. [facility]07-25-2025 Miscellaneous Notes* Telephone Encounter - Tierney Espino LPN - 02/03/2025 2:32 PM EDT Patient returned call and she had sent my chart message and picture of her leg to Leyla Wiggins OVERHEAD WORKER. Patient said she completed her 7 day [...] will go to ER. documented in this encounterPomerene Hospital07-25-2025 Telephone encounter Note * Telephone Encounter - Lauren Parker RN - 02/03/2025 2:24 PM EDT Pt had sent the following Switchcamt msg: --I have taken all the antibiotics [...] understanding and state she will go to [facility] ER. Reason for Disposition [1] Widespread rash AND [2] bright red, sunburn-like Protocols used: Cellulitis on Antibiotic Follow-up Ilxt-IFVZD-TS [facility]07-25-2025 Miscellaneous Notes* Telephone Encounter - Lauren Parker RN - 02/03/2025 2:24 PM EDT Pt had sent the following Switchcamt msg: --I have taken all the antibiotics [...] understanding and state she will go to [facility] ER. Reason for Disposition [1] Widespread rash AND [2] bright red, sunburn-like Protocols used: Cellulitis on Antibiotic Follow-up [id number] documented in this encounterPomerene Hospital07-25-2025 Telephone encounter Note * Telephone Encounter - Ne aBrrera MA - 02/03/2025 1:46 PM EDT Added to Nurse Triage appt. Ne Barrera MA [address]25-2025 Miscellaneous Notes* Telephone Encounter - Ne Barrera MA - 02/03/2025 1:46 PM EDT Added to Nurse Triage appt. Ne Barrera MA documented in this encounterPomerene Hospital07-15-2025 Telephone encounter Note * Telephone Encounter - Maximus Aponte RN - 01/24/2025 3:42 PM EDT Call placed to Randy with [facility] and notified of below with verbalized understanding. Maximus Aponte RN [facility]07-15-2025 Miscellaneous Notes* Telephone Encounter - Maximus Aponte RN - 01/24/2025 3:42 PM EDT Call placed to Randy with [facility] and notified of below with verbalized understanding. Maximus Aponte RN * Telephone Encounter - Akilah Wiggins APRN.SWITCHBOARD AND CONTROL ROOM OPERATOR - 01/24/2025 3:00 PM EDT I am aware of the interaction and will have close follow up with patient but she had an allergic reaction to nystatin so fluconazole is the only option. * Telephone Encounter - Maximus Aponte RN - 01/24/2025 2:43 PM EDT Randy with [facility] calls to let provider know that the [...] to the fluconazole. Please review and advise, Maximus Aponte RN documented in this encounterPomerene Hospital07-15-2025 Telephone encounter Note * Telephone Encounter - Akilah Wiggins APRN.CNP - 01/24/2025 3:00 PM EDT I am aware of the interaction and will have close follow up with patient but she had an allergic reaction to nystatin so fluconazole is the only option. [facility]07-15-[facility] Telephone encounter Note* Telephone Encounter - Maximus Aponte RN - 01/24/2025 2:43 PM EDT Randy with [facility] calls to let provider know that the [...] to the fluconazole. Please review and advise, Maximus Aponte RN [facility]07-15-2025 NoteHNO ID: [id number] Author: AKILAH WIGGINS APRN.SWITCHBOARD AND CONTROL ROOM OPERATOR Service: ? Author Type: Nurse Practitioner Type: Progress Notes Filed: 01/24/2025 12:40 Note Text: Chief Complaint Patient presents with: Establish Care HPI Bhupendra Hebert is a 44 year old female [...] distress, well-hydrated, well nourish (more content not included)...[facility]07-15-2025 History of Present illness Narrative* Akilah Wiggins APRN.[facility] - 01/24/2025 11:35 AM EDT Chief Complaint Patient presents with: [facility] HPI Bhupendra Hebert is a 44 year old female [...] HIV Screening due on 08/22/2025 Covid-19 Vaccine( season) due on 08/22/2025 Influenza Vaccine(1) due [...] with chronic obstructive pulmonary disease (COPD) (HCC) - ICD9: 493.20, ICD10: J44.89 - Unknown [...] year. - ABHAY SCREENING W RAFFI Wiggins APRN.SWITCHBOARD AND CONTROL ROOM OPERATOR documented in this encounterPomerene Hospital06-25-2025 NoteHNO ID: [id number] Author: ANNELIESE ECHAVARRIA MA Service: ? Author Type: Multi Craft Maintenance Technician Type: Progress Notes Filed: 01/04/2025 13:53 Note Text: ED Follow Up: Patient discharged from [facility] ED on 12/29/24, 01/02/25. 1. How [...] you able to contact the office or manager concrete provider prior to your ED visit? Not applicable 5. Is there anything else I can do for you today? No Anneliese Echavarria [facility] History of Present illness Narrative* Anneliese Echavarria MA - 01/04/2025 1:48 PM EDT ED Follow Up: [facility]. 1. How are [...] you able to contact the office or manager concrete provider prior to your ED visit? Not applicable 5. Is there anything else I can do for you today? No Anneliese Echavarria MA documented in this encounterPomerene Hospital06-25-2025 NotePatient Outreach (AGFAMPLE) BHUPENDRA HEBERT ([id number]) 1980 F Date Time Provider Department 01/04/25 HILDA HOLLEY During your visit today, we recorded the following information about you: Anneliese Echavarria MA 01/04/2025 1:53 PM Signed ED Follow Up: Patient discharged from [facility] ED on 12/29/24, 01/02/25. 1. How [...] you able to contact the office or manager concrete provider prior to your ED visit? Not applicable 5. Is there anything else I can do for you today? No Anneliese Echavarria MA Allergies As of Date: 01/04/2025 (No Known Allergies) Date Reviewed: 12/29/2024 Reviewed by: Anika Duran RT(R) - Fully Assessed Reason for Visit: ED Follow-up [821] Cmt: [facility] ER 12/29/24, [facility] ER 01/02/25 Prescriptions as of 01/04/2025 - [...] 11/07/2024 Encounter Status:Closed by ANNELIESE ECHAVARRIA on 01/04/25[facility] 01-03-[facility] Discharge summary [facility] Medical Records Department [address] [place] [address] Emergency Department Summary 01/02/25 MR#: [id number] Acct: [id number] Name: BHUPENDRA HEBERT Rep #:[id number] : 1980 44 From: Cale Charles PCP: Dr. Hilda Holley, DO Status:RE G ER Location: ED HPI History of Present Illness HPI Narrative: Patient presents with redness to her right lower leg that has been getting worseover the past week.Patient was seen at [facility] emergency department for this. Patient was started [...] for Parasthesia, Weakness or Loss of Funtion [facility] Medical History (Updated 01/03/25 @ 00:33 by [...] (Updated 01/02/25 @ 19:[address] Cale Dolan, ) Hx of cholecystectomy Hx of appendectomy Social [...] 83.5 H Lymph % (Auto) 10.5 L Bell % (Auto) 4.1 Eos % (Auto) 0.1 [...] Clarity Clear Urine pH 6.0 Ur Specific [place] 1.015 Urine Protein 30 H Urine Glucose [...] Sphenoid and maxillary sinus disease. Reading Location: [id number] Chest X-Ray 01/02/25 20:19 IMPRESSION: Increased interstitial markings with prominent cardiomediastinal silhouette, as may be seen with pulmonary edema. Reading Location: [id number] CT scan of the brain was obtained. [...] anormal sinus rhythm with arate of 88. [place] interval, QRS interval, and QTc intervals were all normal. [place] was normal. There are nonspecific ST-T wave [...] physician. Patient was given a referral to Critical access hospital. Patient was instructed to follow-up in 5 to 7 days. Patient was instructedto return if worse in any way. Patient understood and was agreeable with the plan. All questions were answered. Discharge Plan Triage Chief Complaint: Lower Extremity Injury ED Provider: Cale Dolan Dx/Rx/DC Orders Clinical Impression: Cellulitis of right anterior lower leg, COPD (chronic obstructive pulmonary disease), Candidiasis of skin Instructions: ED Babita Skin Infection (Adult), ED Cellulitis Prescriptions: New [...] 225 mg PO DAILY Primary Care Provider: Hilda Holley Referrals: Cale Moore MD [Med Staff - Children'S Program Coordinator] - 5-7 Days Hilda Holley DO [Primary Care Provider] - 5-7 Days Print Language: Cymraes Disposition Disposition: Home, Self Care What to do if you have Problems For any increased pain, shortness of breath, bleeding, nausea or vomiting, chestpain, or any unexpected problems, contact your Primary Care Provider. Call [facility] ([phone]) or report tothe closest Emergency Room. Call 911 if necessary. 01/03/25 0043 Cosigner Signature (if applicable): CC: Dr. Hilda Holley DO ~ Signed [facility]06-23-2025 Radiology Diagnostic study note [facility] Imaging Services [address] [place], [place] [address] Chest PA and Lateral MR#: [id number] Acct: [id number] Name: BHUPENDRA HEBERT Rep #: [id number] : 1980 F 44 From: Laney Stoddard MD PCP: Dr. Hilda Holley DO Status: RE G ER Study:Chest PA and Lateral Date of Exam: 01/02/25 Exam# [id number] Ordering Dr: Cale Dolan DO PROCEDURE: CHEST [...] be seen with pulmonary edema. Reading Location: [facility] CC: Dr. Cale Dolan DO; Dr. Hilda Holley DO ~ Welder Gun: Signed [facility]06-23-2025 Radiology Diagnostic study note [facility] Imaging Services [address] [place] [id number] Brain/Head without Contrast MR#: [id number] Acct: [id number] Name: BHUPENDRA HEBERT Rep #: [id number] : 1980 F 44 From: Laney Stoddard MD PCP: Dr. Hilda Holley DO Status: RE G ER Study:Brain/Head without Contrast Date of Exa m: 01/02/25 Exam# [id number] Ordering Dr: Cale Dolan DO PROCEDURE: BRAIN/HEAD [...] Sphenoid and maxillary sinus disease. Reading Location: [id number] CC: Dr. Cale Dolan DO; Dr. Hilda Holley DO ~ Welder Gun: Signed [facility]06-23-2025 Discharge summary Author Cale Dolan [facility] Note Date/Time January 03, 2025 12:4 3am [facility] Medical Records Department [address] [place] [address] Emergency Department Summary 01/02/25 MR#: [id number] Acct: [id number] Name: BHUPENDRA HEBERT Rep #:[id number] : 1980 44 From: Cale Charles PCP: Dr. Hilda Holley DO Status:RE G ER Location: ED HPI History of Present Illness HPI Narrative: Patient presents with redness to her right lower leg that has been getting worseover the past week. Patient was seen at [facility] emergency department for this. Patient was started [...] for Parasthesia, Weakness or Loss of Funtion PFSH PFSH Medical History (Updated 01/03/25 @ 00:33 by [...] (Updated 01/02/25 @ 19:[address] Cale Dolan, DO) Hx of cholecystectomy Hx of appendectomy [...] 83.5 H Lymph % (Auto) 10.5 L Bell % (Auto) 4.1 Eos % (Auto) 0.1 [...] Clarity Clear Urine pH 6.0 Ur Specific [place] 1.015 Urine Protein 30 H Urine Glucose [...] Sphenoid and maxillary sinus disease. Reading Location: [facility] Chest X-Ray 01/02/25 20:19 IMPRESSION: Increased interstitial markings with prominent cardiomediastinal silhouette, as may be seen with pulmonary edema. Reading Location: [id number] CT scan of the brain was obtained. [...] sinus rhythm with a rate of 88. [place] interval, QRS interval, and QTc intervals were all normal. [place] was normal. There are nonspecific ST-T wave [...] physician. Patient was given a referral to Critical access hospital. Patient was instructed to follow-up in 5 to 7 days. Patient was instructed to return if worse in any way. Patient understood and was agreeable with the plan. All questions were answered. Discharge Plan Triage Chief Complaint: Lower Extremity Injury ED Provider: aCle Dolan Dx/Rx/DC Orders Clinical Impression: Cellulitis of right anterior lower leg, COPD (chronic obstructive pulmonary disease), Candidiasis of skin Instructions: ED Babita Skin Infection (Adult), ED Cellulitis Prescriptions: New [...] 225 mg PO DAILY Primary Care Provider: Hilda Holley Referrals: Cale Moore MD [Med Staff - Children'S Program Coordinator] - 5-7 Days Hilda Holley DO [Primary Care Provider] - 5-7 Days Print Language: Cymraes Disposition Disposition: Home, Self Care What to do if you have Problems For any increased pain, shortness of breath, bleeding, nausea or vomiting, chestpain, or any unexpected problems, contact your Primary Care Provider. Call [facility] ([phone]) or report to the closest Emergency Room. Call 911 if necessary. 01/03/25 0043 <Electronically signed by Cale Dolan DO> Cosigner Signature (if applicable): CC: Dr. Hilda Holley DO ~ Signed [facility] Work Phone: 1(279) 426-645306-19-2025 KnexDUIC-DKK-4 (AGENT OF COVID-19) RNA: Not detected INFLUENZA A RNA: Not detected INFLUENZA B RNA: Not detected RESPIRATORY SYNCYTIAL VIRUS (RSV) RNA: Not detectedMainegeneral Medical CenterComment on above:Performed By: #### [id number] ####[facility] [id number] [place] [address] [facility] [id number] NoteHNO ID: [id number] Author: TAE TRIPLETT APRN.SWITCHBOARD AND CONTROL ROOM OPERATOR Service: ? Author Type: Nurse Practitioner Type: Progress Notes Filed: 12/28/2024 18:57 Note Text: [facility] Subjective Bhupendra Hebert is a 44 year old female. [...] (R10.84) - Abdominal distensi (more content not included)...[facility] 12-28-2024 History of Present illness Narrative* Tae Triplett, FERNANDO.SWITCHBOARD AND CONTROL ROOM OPERATOR - 12/28/2024 6:48 PM EDT [facility] Subjective Bhupendra Hebert is a 44 year old female. [...] pathology, including bowel obstruction. documented in this encounterPomerene Hospital06-02-2025 Telephone encounter Note * Telephone Encounter - Anneliese Echavarria MA - 12/12/2024 12:04 PM EDT [facility] Home Care Services Oxygen Order placed in Dr. Margaret bah folder to be signed. .Anneliese Echavarria MA [facility]06-02-2025 Miscellaneous Notes* Telephone Encounter - Anneliese Echavarria MA - 12/12/2024 12:04 PM EDT [facility] Home Care Services Oxygen Order placed in Dr. Margaret bah folder to be signed. .Anneliese Echavarria MA documented in this encounterPomerene Hospital05-21-2025 NoteHNO ID: [id number] Author: ERA SALGUERO PT Service: ? Author Type: Physical Therapist Type: Progress Notes Filed: 11/30/2024 18:11 Note Text: Episode Visit Count: 2 Therapist That Will Accept/Oversee The Plan Of Care: Dragan Dunbar Start of Care Date: 11/07/24 Onset Date: 07/13/08 Plan of Care Certification Date: 11/07/24 Next Certification Due Date: 01/06/25 [facility] PHYSICAL THERAPY RE-EVALUATION PLAN OF CARE UPDATE: Assessment: Bhupendra Hebert demonstrates difficulty with lifting, physical activities, [...] by a minimum 5 points. -- PROGRESSING [place] in home exercise program. -- MET Patient [...] Patient to be seen for Therapeutic exercise (97945), Manual therapy (95544), Therapeutic activities (82966), Patient/Family/Caregiver Education PLAN FOR NEXT VISIT: address L shoulder ROM AND strength, B scap strength AND posture SUBJECTIVE: Transfers from [facility] for shoulder rehab. Pt. bought #3 dumbells [...] and fwd 2x15 each 3: *Access Code: [email or web address] URL: https: (more content not included)...[facility]05-20-2025 NoteHNO ID: [id number] Author: RAFA PARKS OD Service: ? 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 Regular astigmatism of both eyes 3. Presbyopia Finalized spec rx Follow-up in 1 year for complete with OCT prema Parks, OD November 29, 2024 8:27 [facility]05-20-2025 NoteDate of Procedure 11/28/2024. Career Development Associate Information Fisher: BP. Start time: 2:58 PM. Stop time: 2:58 PM. OCT Macula Interpretation Right Eye Normal without fluid. Left Eye Abnormal foveal contour. Findings include Atrophy. Interval Change Right Eye Initial. 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 Regular astigmatism of both eyes 3. Presbyopia Finalized spec rx Follow-up in 1 year for complete with OCT prema Parks, OD November 29, 2024 8:27 AM documented in this encounterPomerene Hospital05-16-2025 NoteHNO ID: [id number] Author: OFELIA KEY LPN Service: ? Author [...] seen in the Emergency Department (ED) Location: [place] Date: 11/19/2024 Reason for ED Visit: Bilateral corneal abrasions ED Intervention: Fluorescein anesthetized with tetracaine Ciprofloxacin drops New Medications: Medication Changes: None Does patient understand medication changes: N/A Can patient afford medication changes: N/A Patient educated on worsening symptoms and when and where to seek additional care: No Patient Education Provided including treatment plan and new orders. Patient provided with appropriate counseling: [facility]05-16-2025 History of Present illness Narrative* [...] seen in the Emergency Department (ED) Location: [place] Date: 11/19/2024 Reason for ED Visit: Bilateral [...] with appropriate counseling: Yes documented in this encounterPomerene Hospital05-16-2025 NotePatient Outreach (BREANA) ANUPBHUPENDRA Makayla ([id number]) 1980 F Date Time Provider Department 11/25/24 HILDA HOLLEY During your visit today, we recorded [...] seen in the Emergency Department (ED) Location: [place] Date: 11/19/2024 Reason for ED Visit: Bilateral [...] Allergies) Date Reviewed: 09/26/2024 Reviewed by: Jourdan Wilson MD - Fully Assessed Reason for Visit: ED Follow-up [821] Cmt: [place] ED 11/19/2024 Prescriptions as of 11/25/2024 - [...] 11/07/2024 Encounter Status:Closed by OFELIA KEY on 11/25/24[facility] 11-19-20[facility] Discharge summary [facility] Medical Records Department [address] [place] [address] Emergency Department Summary 11/19/24 MR#: [id number] Acct: [id number] Name: BHUPENDRA HEBERT Rep #:[id number] : 1980 44 From: Froylan Palmer MD PCP: Dr. Hilda Holley DO Status:RE G ER Location: ED [...] as a child. [facility] She was told there was nothing that could be done. She presents because of eye pain, redness, drainage, itching and foreign body sensation. She also reports light sensitivity. She denies direct or indirect trauma. She denies double vision, loss of vision. She denies rhinorr hea, congestion postnasal drainage. She denies headache. Prior similar symptoms: No Recent Illness/Hospitalization: No [facility] Medical History (Updated 11/19/24 @ 22:06 by [...] Wheezing) Qty: 1 0RF Primary Care Provider: Hilda Holley Referrals: Wale Diallo MD [Med Staff [...] Dr. Cherrie Reed who is a local inflated ball molder. Print Language: Cymraes Disposition Disposition: Home, Self Care What to do if you have Problems For any increased pain, shortness of breath, bleeding, nausea or vomiting, chestpain, or any unexpected problems, contact your Primary Care Provider. Call [facility] ([phone]) or report tothe closest Emergency Room. Call 911 if necessary. 11/19/242205 Cosigner Signature (if applicable): CC: Dr. Hilda Holley, ~ Signed [facility]05-10-2025 Discharge summary Author Froylan Palmer [facility] Note Date/Time November 19, 2024 10:06 pm [facility] Medical Records Department [address] [place] [address] Emergency Department Summary 11/19/24 MR#: [id number] Acct: [id number] Name: BHUPENDRA HEBERT Rep #:[id number] : 1980 44 From: Froylan Palmer MD PCP: Dr. Hilda Holley DO Status:RE G ER Location: ED [...] a child. She apparently was seen at [facility]. She was told there was nothing that could be done. She presents because of eye pain, redness, drainage, itching and foreign body sensation. She also reports light sensitivity. She denies direct or indirect trauma. She denies double vision, loss of vision. She denies rhinorrhea, congestion postnasal drainage. She denies headache. Prior similar symptoms: No [facility] Medical History (Updated 11/19/24 @ 22:06 [...] Wheezing) Qty: 1 0RF Primary Care Provider: Hilda Holley Referrals: Wale Diallo MD [Med Staff [...] Dr. Cherrie Reed who is a local inflated ball molder. Print Language: Cymraes Disposition Disposition: Home, Self Care What to do if you have Problems For any increased pain, shortness of breath, bleeding, nausea or vomiting, chestpain, or any unexpected problems, contact your Primary Care Provider. Call [facility] ([phone]) or report to the closest Emergency Room. Call 911 if necessary. 11/19/242205 <Electronically signed by Froylan Palmer MD> Cosigner Signature (if applicable): CC: Dr. Hilda Holley, DO ~ Signed [facility] Work Phone: 1(697) 408-518604-28-2025 NoteHNO ID: [id number] Author: SHAYY DUNBAR, PT Service: ? Author [...] PHYSICAL THERAPY EVALUATION PLAN OF CARE: Assessment: Bhupendra Hebert presents with diagnosis AND chief complaint [...] increase T-score by a minimum 5 points. [place] in home exercise program. Patient will decrease [...] more prn) Planned Treatment Interventions: Therapeutic exercise (21803), Manual therapy (93305), Therapeutic activities (21926), Patient/Family/Caregiver Education PLAN FOR NEXT VISIT: address [...] PT (says she didn't have insurance for [employer]alty [employer]). she denies neck pain but has occasional [...] indicates half of res (more content not included)...[facility]04[facility] History of Present illness Narrative* [...] PHYSICAL THERAPY EVALUATION PLAN OF CARE: Assessment: Bhupendra Hebert presents with diagnosis & chief complaint [...] to activity, multiple co- morbidities . The makayla ortiz will benefit from skilled therapy services to meet the goals established for this plan of care as noted below. She may also benefit from additional testing &/or ortho consult prn pending progress in PT. Goals for Episode of Care: established 11/07/24 Patient reported outcome of physical function and self-efficacy will increase T- score by a minimum 5 points. [place] in home exercise program. Patient will decrease [...] more prn) Planned Treatment Interventions: Therapeutic exercise (16277), Manual therapy (40802), Therapeutic activities (37396), Patient/Family/Caregiver Education PLAN FOR NEXT VISIT: address [...] PT (says she didn't have insurance for [employer]). she denies neck pain but has occasional [...] Elbow Flexion (C6): 4+/5 Hand Strength R Digital Marketing Intern Position 2 (lbs): 45 lbs L Digital Marketing Intern Position 2 (lbs): 45 lbs Special Tests [...] 1733 Shayy Dunbar PT documented in this encounterPomerene Hospital04-11-2025 Telephone encounter Note * Telephone Encounter - Anneliese Echavarria MA - 10/21/2024 8:34 AM EDT [place] [facility] Order placed in Dr. Margaret bah folder to be signed. Anneliese Echavarria MA [facility]04-11-2025 Miscellaneous Notes* Telephone Encounter - Anneliese Echavarria MA - 10/21/2024 8:34 AM EDT [place] [facility] Order placed in Dr. Holley green folder to be signed. Anneliese Echavarria MA documented in this encounterPomerene Hospital04-04-2025 Telephone encounter Note * Telephone Encounter - Hilda Holley DO - 10/14/2024 8:47 AM EDT She does not need oxygen with her CPAP. Mask and other supply order attached Hilda Holley DO [facility]04-04-2025 Miscellaneous Notes* Telephone Encounter - Hilda Holley DO - 10/14/2024 8:47 AM EDT She does not need oxygen with her CPAP. Mask and other supply order attached Hilda Holley DO * Telephone Encounter - Anneliese Echavarria MA - 10/13/2024 4:05 PM EDT Patient informed of results and recommendations. Patient states if she needs to have oxygen with her CPAP then she needs a whole new machine but if she does not need to use oxygen with her CPAP then she already has a machine and just needs masks sent to [facility]. Please advise. Anneliese Echavarria MA * Telephone Encounter - Anneliese Echavarria MA - 10/13/2024 4:04 PM EDT ----- Message from Hilda Holley DO sent at 10/12/2024 8:16 PM EDT ----- Please notify pt her sleep study shows she definitely needs a CPAP - where does she want me to sendthe order for the new CPAP machine? Hilda Holley DO documented in this encounterPomerene Hospital04-03-2025 Telephone encounter Note * Telephone Encounter [...] and just needs masks sent to [facility]. Please advise. Anneliese Echavarria MA [facility]04-03-2025 Telephone encounter Note* Telephone Encounter - Anneliese Echavarria MA - 10/13/2024 4:04 PM EDT ----- Message from Hilda Holley DO sent at 10/12/2024 8:16 PM EDT ----- Please notify pt her sleep study shows she definitely needs a CPAP - where does she want me to sendthe order for the new CPAP machine? Hilda Holley DO [facility]03-19-2025 NoteHNO ID: [id number] Author: OFELIA KEY LPN Service: ? Author Type: LICENSED NURSE Type: Progress Notes Filed: 09/28/2024 09:53 Note Text: ED Follow-Up Note Provider Action / FYI: Call completed by: MIKY Patient seen in ED: In Network ED Contact made with Patient: No, left message. Ofelia Key LPN September 28, 2024 9:53 AM[facility]03-19-[facility]25 History of Present illness Narrative* Ofelia Key LPN - 09/28/2024 9:51 AM EDT ED Follow-Up Note Provider Action / FYI: Call completed by: MIKY Patient seen in ED: In Network ED Contact made with Patient: No, left message. Ofelia Key LPN September 28, 2024 9:53 AM documented in this encounterPomerene Hospital03-19-2025 NotePatient Outreach (AGFAMPLE) ANUPBHUPENDRA Makayla ([id number]) 1980 F Date Time Provider Department 09/28/24 HILDA HOLLEY During your visit today, we recorded [...] Allergies) Date Reviewed: 09/26/2024 Reviewed by: Jourdan Wilson MD - Fully Assessed Reason for Visit: ED Follow-up [821] Cmt: [facility] 09/26/2024 Prescriptions as of 09/28/2024 - [...] 12/29/2023 Encounter Status:Closed by OFELIA KEY on 09/28/24[facility] 09-[facility]24 [id number] (AGENT OF COVID-19) RNA: Not detected INFLUENZA A RNA: Not detected INFLUENZA B RNA: Not detected RESPIRATORY SYNCYTIAL VIRUS (RSV) RNA: Not detectedMainegeneral Medical CenterComment on above:Performed By: #### [id number] ####[facility] LODI LABCLIA [id number] [place] [address] [facility]02-10-2025 Instructions* Patient Instructions* Hilda Holley DO - 08/22/2024 3:51 PM EST You are due for a Tdap, hep B and pneumococcal immunizations documented in this encounterPomerene Hospital02-10-2025 NoteHNO ID: [id number] Author: HILDA HOLLEY DO Service: ? Author Type: Physician Type: Progress Notes Filed: 08/25/2024 20:05 Note Text: SUBJECTIVE: 44 year old female here to establish. I have fully reviewed the past medical, surgical, social and family history and updated the Histories section of [facility]. She has a history of anxiety with [...] are intact. Ears: External (more content not included)...[facility] 08-[facility] History of Present illness Narrative* Hilda Holley DO - 08/22/2024 3:27 PM EST SUBJECTIVE: 44 year old female here to establish. I have fully reviewed the past medical, surgical,social and family history and updated the Histories section of [facility]. She has a history of anxiety with [...] Asthma With Chronic Obstructive Pulmonary Disease (Copd) ([facility]) Gastroesophageal Reflux Disease Generalized Anxiety Disorder Hyperlipidemia Morbid Obesity ([facility]) Brittany (Obstructive Sleep Apnea) Nicotine use disorder, F17.2 Bmi 60.0-69.9, Adult ([facility]) Tobacco Abuse Atelectasis Acute Appendicitis [...] worsened because of the chemicals in tobacco. Hilda Holley DO New Medication(s): buspar; Discussed use, dose and side effects; Patient expresses understanding. I spent 45 minutes in the visit, with more than 50% of the total wyfj-ep-uebl time of the visit in counseling / coordination of care. documented in this encounterPomerene Hospital10-30-2024 NotePT Outpatient Progress Note Entered On: [...] and coordination, pain Attending Physician : Name: VANDANA CUTLER Subjective : Patient reports things have [...] EDT 05/11/2024 EDT 05/11/2024 EDT 05/11/2024 EDT Reese PT, Antonina 05/11/2024 16:47 EDT Reese PT, Antonina - 05/11/2024 16:47 EDT Reese PT, Antonina - 05/11/2024 16:47 EDT Reese PT, Antonina 05/11/2024 16:47 EDT Neuromuscular Reeducation Neuromuscular Reeducation : Neuromuscular Reeducation Activity 1: Motor control; motor recruitment of PFM contraction with intra- abdominal pressure for symptom reduction, PFM lengthening to improve coordination, downtraining Performed Date: 04/27/2024 Tito Leigh PTen 05/11/2024 16:47 EDT Neuromuscular Reeducation Activity 1 Activities : Motor control Comments : motor recruitment of PFM contraction with intra-abdominal pressure for symptom reduction, PFM lengthening to improve coordination, downtraining Reese PT, Antonina 05/11/2024 16:47 EDT Functional Outcome Measures Functional Outcome Measures - grid Activity 1 Test : Other: NIH-CPSI Score : 5 Reese GEORGE, Antonina 05/11/2024 16:47 EDT Education *Barriers To Learning : None evident *Teaching Method : Demonstration, Explanation Patient Education - PT Outpatient : Home exercise program - progression/modification, Self care, Symptom management Tito Leigh PTen 05/11/2024 16:47 EDT Assessment PT Clinical Assessment Summary : DC assessment performed. Patient has progressed well with improving current symptoms. she has greatly reduced urinary frequency and pain with urination. She has improved PFM contraction and coordination to normal, per subjective reports. she no longer Reese GEORGE, Antonina 05/11/2024 16:47 EDT Plan *Duration : Discharge [...] OP : 0 Antonina Leigh PT - 05/11/2024 16:47 [facility] 04-27-2024 NotePT Outpatient Progress Note Entered [...] and coordination, pain Attending Physician : Name: VANDANA CUTLER Subjective : Breathing is helping with [...] No qualifying data available Antonina Leigh PT - 04/27/2024 16:00 EDT Neuromuscular Reeducation Neuromuscular Reeducation [...] to improve coordination, downtraining Antonina Leigh PT - 04/27/2024 16:00 EDT External Pelvic Floor Exam [...] time achieving PFM lengthening. Antonina Leigh PT 04/27/2024 16:00 EDT Plan Frequency : 1 time per week, 1 time per month, 2 times per month *Duration : Other: 10 visits *Treatments : Biofeedback, Bladder/Bowel retraining, Dry needling, Neuromuscular re-education, Therapeutic exercises, Therapeutic activities, Pain Management, Patient education, Posture/Body mechanics training *Plan for Next Visit : followup with urge suppression techniques Antonina Leigh PT 04/27/2024 16:00 EDT Time Spent with Patient [...] Rule Unit Difference PT OP : 0 Antonnia Leigh PT 04/27/2024 16:00 [facility] 04-11-2024 NotePT Outpatient Progress Note Entered On: [...] and coordination, pain Attending Physician : Name: VANDANA CUTLER Subjective : Patient reports she is feeling okay. No questions after IE. Still having a lot of painwith urination, and pushes to empty. Therapeutic Exercise : Yes Neuromuscular Reeducation/ Balance : Yes Self Care : Yes [facility] 04/11/2024 18:14 EDT Neuromuscular Reeducation Neuromuscular Reeducation : Neuromuscular Reeducation No qualifying data available Jorje Leigh PTisten 04/11/2024 18:14 EDT Neuromuscular Reeducation Activity 1 Activities : Motor control Comments : motor recruitment of PFM contraction with intra-abdominal pressure for symptom reduction, PFM lengthening to improve coordination Jorje Leigh PTisten 04/11/2024 18:14 EDT Education *Barriers To Learning : None evident *Teaching Method : Demonstration, Explanation Patient Education - PT Outpatient : Anatomy, Body mechanics, Self care, Symptom management Jorje Leigh PTisten 04/11/2024 18:14 EDT Assessment PT Clinical Assessment [...] Visit : follow up with balloon breathing Jorje Leigh PTisten 04/11/2024 18:14 EDT Time Spent with Patient [...] after 6pm Qty - PT : 3 Antonina Leigh PT - 04/11/2024 18:[facility] NotePT Outpatient Evaluation Entered On: 04/04/2024 18:51 EDT Performed On: 04/04/2024 17:58 EDT by Antonina Leigh PT Reason for Treatment Precautions/Special Notes : accompanied by partner Jasmin Reese GEORGE, Antonina - 04/05/2024 6:58 EDT Total Visit Count [...] into appendix, had appendectomy in November 2023 Reesecorey GEORGE Antonina 04/05/2024 6:58 EDT Subjective PT Diagnosis : impaired PFM strength and coordination, pain Reese GEORGE Antonina 04/05/2024 6:58 EDT Precautions : No Orders Qualified Diagnosis : Reason for Visit: stress urinary incontinence, rectal incontinence Pain Present : Yes actual or suspected pain Attending Physician : Name: VANDANA CUTLER Chronicity of Condition PT : Chronic (greater than 3 months) Reese GEORGE Antonina 04/04/2024 17:58 EDT Past Medical History, Hospitalizations, [...] Outpt Past Medical History : High Cholesterol Reese GEORGE Antonina 04/04/2024 17:58 EDT Pain Assessment Pain Location : Pelvic Self Report Pain : Numeric rating scale Numeric Pain Scale : 9 Numeric Pain Score : 9 Reese GEORGE Antonina 04/04/2024 17:58 EDT Home Environment Living Environment : Home Environment No qualifying data available Patient's Responsibilities Rehab : Unemployed Reese GEORGE Antonina 04/04/2024 17:58 EDT Home Environment II Living Environment : Home Environment No qualifying data available Reese GEORGE Antonina 04/04/2024 17:58 EDT Prior Functional Status ADL : Independent Mobility : Independent Instrumental ADL : Independent Cognitive-Communication Skills : Independent Reese GEORGE Antonina 04/04/2024 17:58 EDT Functional Outcome Measures Functional [...] Show Policy : Yes Antonina Leigh PT - 04/05/2024 6:58 EDT Fall In The Past Year : Yes Number of Falls in the Past Year : 1 Injury Sustained From Fall : No Antonina Leigh PT - 04/04/2024 17:58 EDT Assessment *Patient/Family Receptiveness : Fair *Rehabilitation Potential : Fair PT Clinical Assessment Summary : Patient spencer 43 y/o female presenting to skilled PFPT with a tile layer helper (Jasmin). She has been dealing with urinary [...] and improve QOL. Presentatio (more content not included)...[facility] 03-03-2024 NotePreprocedure Checklist Entered On: 02/24/2024 11:11 EDT Performed On: 02/26/2024 11:35 EDT by Marybeth Vasquez RN Infection Screening Last Physical Overnight Location of [...] risk situation (congregated living, hemodialysis, infusion clinic, senior care, assisted living, nursing home, homeless detention, etc.)? : No Raphael Gomez RN - 02/26/2024 11:34 EDT Checklist Urine POC : Negative Urine QC : Pass Raphael Gomez RN - 03/03/2024 13:03 EDT NPO Since : 02/26/2024 08:20 EDT Last Void : 02/26/2024 10:30 EDT Last Food Intake : 02/25/2024 23:30 EDT Raphael Gomez RN 02/26/2024 11:34 EDT Valuables Prechecklist Grid Valuables at Bedside Clothes : Slippers, Other: summer dress. (Comment: in [facility] locker [Raphael Gomez RN - 02/26/2024 11:34 EDT] ) Raphael Gomez RN - 02/26/2024 11:34 EDT Procedure Location : Surgery Raphael Gomez RN 02/26/2024 11:34 EDT Surgery Prep Grid Home Bowel Prep Complete : N/A Home CHG Prep Complete : N/A Inpatient PreSurgery Regular Shower/Bath : N/A Inpatient CHG Bath Complete within 12 hours : N/A CHG Cloth Prep in [facility] : Yes Makeup and Jewelry Removed : Yes Nail Grenadian Removed : Yes Wearing Patient Gown/Street Clothes Removed : Yes Raphael Gomez RN - 02/26/2024 11:34 EDT Patient Rights Grid Anesthesia Consent Signed : Yes Surgical Consent Signed : Yes Raphael Gomez RN 02/26/2024 11:34 EDT Procedure Checklist is completed [...] take a Beta Cruz Raphael Gomez RN - 02/26/2024 11:34 EDT Protocols Patient Safety Grid ID Band on and Verified : Yes Fall Risk Transmitter Engineer : Yes Current H&P in Medical Record [...] by: Raphael Gomez RN on 03/03/2024 13:03 [facility]08-20-2024 NoteIMPRESSION: INCOMPLETE: NEED ADDITIONAL IMAGING EVALUATION Limited positioning due to the patient's physical status. No obvious abnormality. Ultrasound be performed for complaints of a palpable area RIGHT breast. LIMITED ULTRASOUND OF RIGHT BREAST: 03/01/2024 RESULT: No prior exams were available for comparison. Color flow and real-time ultrasound of the right breast 9 o'clock region were performed. [place] scale images of the real-time examination were reviewed. Ultrasound of the RIGHT breast palpable area noted by the patient is at the 9:00 region 5 cm the nipple and is located within the skin. It measures 5 x 4 x 1 mm. There is an echogenic area in it suggesting air. The patient states she repeatedly tries to pop the skin Christianity and that it is not new. The [...] mammogram is recommended. Clark Sim M.D. FACR, [facility] ch/miracle:03/01/2024 09:25:26 Multiple national specialty organizations have released breast cancer screening guidelines for women at average risk for developing breast cancer - guidelines that are based on both evidence and opinion, yet differ on when to start and how often to screen for breast cancer. With representation from Breast Imaging, Internal Medicine, Women's Health, Family Medicine, and Medical/Surgical Oncology, the [facility] has carefully reviewed the data and [...] their providers when to stop screening mammograms. Global Mobility Specialist(s): Sandra Toledo, [facility]; RT Reagan(R)(M), [facility] OVERALL STUDY BIRADS: Category 2: Benign Welder Gun: Miracle Transcribe Date/Time: Mar 01 2024 8:14A Dictated by : CLARK SIM MD This examination was interpreted and the report reviewed and electronically signed by: CLARK SIM MD on Mar 01 2024 9:25AM [facility] [id number] NoteIMPRESSION: INCOMPLETE: NEED ADDITIONAL IMAGING EVALUATION Limited [...] she repeatedly tries to pop the skin Christianity and that it is not new. The [...] 1 year screening mammogram is recommended. Clark IBARRA, [facility]/miracle:03/01/2024 09:25:26 Multiple national specialty organizations have released breast cancer screening guidelines for women at average risk for developing breast cancer - guidelines that are based on both evidence and opinion, yet differ on when to start and how often to screen for breast cancer. With representation from Breast Imaging, Internal Medicine, Women's Health, Family Medicine, and Medical/Surgical Oncology, the [facility] has carefully reviewed the data and [...] their providers when to stop screening mammograms. Global Mobility Specialist(s): Sandra Toledo, [facility]; Vito Schultz RT(R)(M), [facility] OVERALL STUDY BIRADS: Category 2: Benign Welder Gun: Miracle Transcriforeign Date/Time: Mar 01 2024 8:14A Dictated by : CLARK SIM MD This examination was interpreted and the report reviewed and electronically signed by: CLARK SIM MD on Mar 01 2024 9:25AM [facility] [id number] History of Present illness Narrative* Sandra Toledo CT - 03/01/2024 8:40 AM EDT Radiology Service Progress Note PATIENT NAME: Bhupendra Hebert DATE OF SERVICE: March 01, 2024 [...] PATIENT PRESENTS WITH AN IMPLANTABLE OR ATTACHED HUSKER OPERATOR: No RADIOLOGY DEPARTMENT: Ultrasound PERIPHERAL IV DATA: Not applicable SIGNED BY: EMMA Dutton March 01, 2024 9:13 AM documented in this encounterPomerene Hospital08-20-2024 NoteHNO ID: [id number] Author: SANDRA TOLEDO CT Service: Radiology Author Type: Technologist Type: Progress Notes Filed: 03/01/2024 09:14 Note Text: Radiology Service Progress Note PATIENT NAME: Bhupendra Hebert DATE OF SERVICE: March 01, 2024 [...] PATIENT PRESENTS WITH AN IMPLANTABLE OR ATTACHED HUSKER OPERATOR: No RADIOLOGY DEPARTMENT: Ultrasound PERIPHERAL IV DATA: Not applicable SIGNED BY: EMMA Dutton March 01, 2024 9:13 AMK[facility] [id number] History of Present illness Narrative* Lucy Moore CT - 03/01/2024 8:20 AM EDT Radiology Service Progress Note PATIENT NAME: Bhupendra Hebert DATE OF SERVICE: March 01, 2024 [...] PATIENT PRESENTS WITH AN IMPLANTABLE OR ATTACHED HUSKER OPERATOR: No RADIOLOGY DEPARTMENT: Mammography PERIPHERAL IV DATA: Not applicable SIGNED BY: EMMA Kirk March 01, 2024 8:50 AM documented in this encounterPomerene Hospital08-20-2024 NoteHNO ID: [id number] Author: LUCY MOORE CT Service: Radiology Author Type: Technologist Type: Progress Notes Filed: 03/01/2024 08:51 Note Text: Radiology Service Progress Note PATIENT NAME: Bhupendra Hebert DATE OF SERVICE: March 01, 2024 [...] PATIENT PRESENTS WITH AN IMPLANTABLE OR ATTACHED HUSKER OPERATOR: No RADIOLOGY DEPARTMENT: Mammography PERIPHERAL IV DATA: Not applicable SIGNED BY: Vito Schultz, EMMA March 01, 2024 8:50 [facility] [id number] NotePatient Education Material [facility] Reagan [facility] General Ambulatory Surgery Adult Home Going Instructions [...] by your care provider ? Only take irie-vcm-jcwknqy or prescription medications as directed ? Slowly resume diet ? Activity as directed by your surgeon ? Use extra care climbing stairs or walking with crutches If you have questions or problems that seem to be related to the anesthetic, call the hospital at [phone] and ask for the ELECTRICAL AND INSTRUMENT ENGINEER manager car or anesthesiologist. Thank you for the privilege [...] If you take asp (more content not included)...[facility] 02-26-2024 NotePAA Education Entered On: [...] understanding Raphael Gomez RN - 02/26/2024 11:40 [facility] NotePAA Education Entered On: 02/24/2024 11:08 EDT Performed On: 02/23/2024 15:30 EDT by Marybeth Vasquez RN / Candis Responsible Learner/s Present : Spoke to patient and friend by phone. Barriers to Learning : None evident TeachBack Methodology : Donnell, Marybeth Galicia RN - 02/24/2024 11:09 EDT Topic Specific Education Health Maintenance GRID Bathing/Hygiene : Verbalizes understanding Marybeth Vasquez RN - 02/24/2024 11:09 EDT Education Medication Management GRID Correct Self-Administration : Verbalizes understanding Marybeth Vasquez RN - 02/24/2024 11:09 EDT Infection Control Education Dialysis Surgery - [facility] form # [id number] : Needs further teaching Marybeth Vasquez RN - 02/24/2024 11:09 EDT Pre Procedure / Surgery Education Procedures Tests Exams GRID Anesthesia/Sedation : Verbalizes understanding (Comment: Denies personal or family history of anesthesai reactions. [Marybeth Vasquez RN - 02/24/2024 11:07 EDT] ) NPO : Verbalizes understanding Preoperative Instructions : Verbalizes understanding Preprocedure Diet : Verbalizes understanding Marybeth Vasquez RN 02/24/2024 11:09 [facility] 02-18-2024 History of Present illness Narrative* Devyn Granados MD - 02/18/2024 1:01 PM EDT [...] on an as-needed basis documented in this encounterPomerene Hospital07-19-2024 Reason for visit Narrative* Outpatient Procedure (Routine) - Closed Specialty Diagnoses / Procedures Referred By Lakisha okeefe Referred To Contact Radiology / [facility] Diagnoses Mastodynia Order will be faxed on 01/29/2024 per Melly mammogram diagnositic bilateral, n64.4 US breast L side, Ordering: Vidya Sung NP Procedures DIAGNOSTIC MAMMOGRAPHY COMPUTER-AIDED DETCJ UNI MAMMOGRAM DIAGNOSTIC Vidya Sung, SWITCHBOARD AND CONTROL ROOM OPERATOR [address] [place] [address] Radio Mammo [address] [place] [place] [address] Referral ID Status Reason Start Date Expiration Date Visits Re quested Visits Authorized [id number] Closed 07/13/2023 07/12/2024 2 2 [facility]06-[facility] History of Present illness Narrative* Devyn Granados MD - 01/05/2024 3:04 PM EDT [...] on an as-needed basis documented in this encounterPomerene Hospital06-15-2024 History of Present illness Narrative* Ofelia [...] PATIENT PRESENTS WITH AN IMPLANTABLE OR ATTACHED HUSKER OPERATOR: No ALLERGIES: Reviewed and unchanged CONTRAST [...] the eGFRmay not accurately reflect actual GFR. Makayla.O.C.T. RESULTS: N/A December 26, 2023 TREATMENT: N/A PERIPHERAL IV DATA: Inpatient - refer to LDA documentation RADIOLOGY DEPARTMENT: CT; Exam(s) Completed: Abdomen/Pelvis SIGNATURE: EMMA Luna PATIENT NAME: Bhupendra Hebert DATE: December 26, 2023 TIME: 4:57 PM documented in this encounterPomerene Hospital06-15-2024 History of Present illness Narrative* Yahaira Motley, ROCKET ENGINE TESTER.SWITCHBOARD AND CONTROL ROOM OPERATOR - 12/26/2023 1:59 PM EDT Subjective The history is provided by the patient. No english language arts teacher was used. Abdominal Pain This is a [...] - Pt agreeable with plan. Yahaira Motley APRN.ADONIS documented in this encounterPomerene Hospital03-13-2024 History of Present illness Narrative* Rosita Rich APRN.CNP - 09/23/2023 3:56 PM EDT Images from the original note were not included. [facility] PATIENT NAME: Bhupendra Hebert DATE OF : 1980 TODAYS' DATE: 09/23/2023 Subjective: Ms. Hebert is a 43 year old female Patient presents with: Cough: Cough chest congestion History of Present Illness: The history is provided by the patient. No english language arts teacher was used. Cough This is a new [...] 3-5 days or get worse Rosita Rich APRN.ADONIS 09/23/23 3:56 PM documented in this encounterPomerene Hospital01-18-2023 History of Present illness Narrative* Debbi Leija MD - 07/30/2022 9:23 AM EST IMPRESSION 42-year-old female with dysphagia. RECOMMENDATION/PLAN To further assess her dysphagia, I recommend obtaining a modified barium swallow study and esophagram. The next step in treatment will depend on the results of these study. Chief Complaint Trouble swallowing History of Present Illness Bhupendra Hebert is a 42 year old female [...] bilaterally. Debbi Leija MD documented in this encounterPomerene Hospital09-22-2022 History of Present illness Narrative* Clifford Berman MD - 04/03/2022 9:03 AM EDT HPI Bhupendra Hebert is a 41 year old female [...] R42 Continue the Flonase follow-up as needed Clifford Berman MD Findings will be communicated to the referring physician via mail or electronic medical record. documented in this encounterPomerene Hospital07-08-2022 History of Present illness Narrative* Giovanny Barkley - 01/17/2022 6:22 AM EDT Sleep Study Check-In Documentation Date: January 17, 2022 Name: Bhupendra Hebert Patient was accompanied by Significant other. Location: Latex allergy: No Tape allergy: No Current medications were reviewed with the patient:Yes Sleep aid taken by patient for the sleep study: Darby of sleep aid: Not Applicable Procedure was explained to the patient and all questions were answered. PAP treatment discussed and shown to patient: Yes If PAP used enter mask info: Mask Name AirFit F10 Make ResMed MaskTypeFull Face Mask SizeSmall Chin Sharp Used No Knowledge Program (KP): KP was not completed in [facility] by patient and accepted Study type: Split Study-Polysomnogram with CPAP titration Adverse Event: No (If yes create a new abstract) SERS Event: No Comments: Patient was advised to follow up with their ordering provider regarding test results Giovanny Barkley * Errol Sarabia III, PhD - 11/25/2021 2:52 PM EDT November 25, 2021 Standing PSG Orders signed in the last 90 days None Future PSG Orders signed in the last 90 days Ordered Auth. provider POLYSOMNOGRAM (PSG) [[id number]] 11/25/21 Sleep Transcribe Provider Assoc. diagnoses: Obstructive [...] A: No Q: Enter External Provider Name: A: Steffany Hernandez Q: Enter External Provider Fax Number: A: [phone] All Prior Sleep Studies (past 365 days) [...] for Polysomnogram (PSG) from lucho Nesbitt (), benjamín Nichole with and without [facility]. Visit prep complete. Order and documentation available in [employer] either under procedure or scanned document tabs. Comments :No The sleep study has not been scheduled yet. (Please refer to the [employer] drive for supporting documents) Insurance: Payor: MEDICAID [place] / Plan: [place] MEDICA[place] / Product Type: Medicaid / Payor/Plan Subscr Sex Relation Sub. Ins. ID Effective Group Num 1. MEDICAID [place] -* BHUPENDRA HEBERT Makayla 1980 Female Self [id number] [address] Lucy Montgomery documented in this encounterPomerene HospitalEvaluation note* Diagnosis Obstructive sleep apnea syndrome- Primary Obstructive sleep apnea (adult) (pediatric) [facility] Chronic pansinusitis- Primary Other chronic sinusitis Chronic rhinitis Dizziness Dizziness and giddiness [facility] Diagnosis Obstructive sleep apnea (adult) (pediatric)- Primary [facility] Diagnosis Other dysphagia- Primary [facility] Diagnosis Acute upper respiratory infection- Primary Acute upper respiratory infections of unspecified site [facility] Diagnosis Right upper quadrant abdominal pain- Primary Abdominal pain, right upper quadrant Left upper quadrant abdominal pain Dysuria Nausea Nausea alone Dizziness Dizziness and giddiness [facility] Diagnosis Aftercare- Primary Unspecified aftercare [facility] Diagnosis Aftercare- Primary Unspecified aftercare [facility] Diagnosis BRITTANY (obstructive sleep apnea)- Primary Obstructive sleep apnea (adult) (pediatric) Adult ADHD Attention deficit disorder with hyperactivity Pure hypertriglyceridemia Pure hyperglyceridemia Hyperlipidemia, mixed Mixed hyperlipidemia Venous stasis Unspecified venous (peripheral) insufficiency Chronic left shoulder pain Pain in joint, shoulder region Generalized anxiety disorder Morbid obesity (HCC) Morbid obesity Tobacco abuse Tobacco use disorder [facility] BRITTANY (obstructive sleep apnea)- Primary Obstructive sleep apnea (adult) (pediatric) [facility] Diagnosis Weakness of left shoulder- Primary Chronic left shoulder pain Pain in joint, shoulder region [facility]* Diagnosis BRITTANY (obstructive sleep apnea) Obstructive sleep apnea (adult) (pediatric) documented [facility] this encounter [facility] noteNo assessment information availableWMercy [facility] Work Phone: Evaluation note* 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 of both eyes Regular astigmatism Presbyopia [facility]* Diagnosis Generalized abdominal pain- Primary Abdominal pain, generalized Edema, unspecified type [facility]* Diagnosis Intertrigo- Primary Other specified erythematous condition Hyperlipidemia, mixed Mixed hyperlipidemia Generalized anxiety disorder Morbid obesity (HCC) Morbid obesity Tobacco abuse Tobacco use disorder Mixed hyperlipidemia Asthma with chronic obstructive pulmonary disease (COPD) (HCC) Chronic obstructive asthma, unspecified Gastroesophageal reflux disease [...] for breast cancer [facility]* Diagnosis Cellulitis and abscess of leg- Primary Cellulitis and abscess of leg, except foot [facility]* Diagnosis Panniculitis- Primary Panniculitis, unspecified site Morbid obesity (HCC) Morbid obesity Abdominal wall cellulitis Cellulitis and abscess of trunk [facility]* Diagnosis Generalized anxiety disorder PTSD (post-traumatic stress disorder) Posttraumatic stress disorder MPD syndrome Mylagia and myositis, unspecified Injury of head, initial encounter [facility] Diagnosis Cellulitis and abscess of leg- Primary Cellulitis and abscess of leg, except foot Right ventricular diastolic dysfunction Chronic sphenoidal sinusitis Encounter for smoking cessation counseling Counseling on substance use and abuse Morbid obesity (HCC) Morbid obesity Encounter for tobacco use cessation counseling [facility] Diagnosis Encounter for screening mammogram for breast cancer documented in this [facility]* Diagnosis Asthma with chronic obstructive pulmonary disease (COPD) (HCC)- Primary Chronic obstructive asthma, unspecified documented in this encounter [facility] Discharge instructions Additional Instructions 1. Do not rub your eyes 2. Instill 1 drop of eyedrop every 2 hours while awake for the next 24 hours, then instill 1 drop every 4 hours while awake for the next 5 days. 3. If you are not better contact Dr. Cherrie Reed who is a local inflated ball molder. [facility] Work Phone: Reason for referral (narrative)* Diagnostic Procedure Only (Routine) - Authorized Specialty Diagnoses / Procedures Referred By Contac t Referred To Contact XR IMAGING Diagnoses Other dysphagia Procedures XR ESOPHAGRAM RADIOLOGIC EXAM ESOPHAGUS SINGLE CONTRAST STUDY Debbi Leija MD [address] [place] [address] Xr Imaging Referral ID Status Reason Start Date Expiration Date Visits Requested Visits Authorized [id number] Authorized Auto-Generat ed Referral 07/30/2022 08/29/2023 1 1 * Diagnostic Procedure Only (Routine) - Authorized Specialty Diagnoses / Procedures Referred By Contac t Referred To Contact XR IMAGING Diagnoses Other dysphagia Procedures XR MODIFIED BARIUM SWALLOW W SPEECH THERAPY RADIOLOGIC EXAM SWALLOW FUNCTION CONTRAST STUDY Debbi Leija MD [address] [place], [place] [id number] Xr Imaging Referral ID Status Reason Start Date Expiration Date Visits Requested Visits Authorized [id number] Authorized Auto-Generat ed Referral 07/30/2022 08/29/2023 1 1 [facility] for referral (narrative)No reason for referral information availableWMercy Health [facility] Hospital Work Phone: Reason for visit Narrative* MRI/CT (Routine) - Closed Specialty Diagnoses / Procedures Referred By Lakisha okeefe Referred To Contact MR IMAGING Diagnoses Generalized anxiety disorder PTSD (post-traumatic stress disorder) MPD syndrome Injury of head, initial encounter Procedures MRI BRAIN WO IVCON MRI BRAIN BRAIN STEM W/O CONTRAST MATERIAL Akilah Wiggins APRN.SWITCHBOARD AND CONTROL ROOM OPERATOR [address] [place] [address] Phone: tel: fax: [place] [address] Referral ID Status Reason Start Date Expiration Date V isits Requested Visits Authorized [id number] Closed Auto-Generate d Referral 02/07/2025 03/09/2025 1 1 [facility] for visit Narrative* Diagnostic Procedure Only (Routine) - Closed Specialty Diagnoses / Procedures Referred By Lakisha okeefe Referred To Contact [facility] Diagnoses Encounter for screening mammogram for breast cancer Procedures ABHAY SCREENING W RAFFI SCREENING DIGITAL BREAST TOMOSYNTHESIS BI SCREENING MAMMOGRAPHY BI 2-VIEW BREAST INC CAD Akilah Wiggins, ROCKET ENGINE TESTER.SWITCHBOARD AND CONTROL ROOM OPERATOR [address] [place] [address] Phone: tel: fax: [facility] [address] [place] [address] Referral ID Status Reason Start Date Expiration Date V isits Requested Visits Authorized [id number] Closed Auto-Generate d Referral 01/24/2025 02/23/2026 1 1 [facility] Advance Directives No Advanced Directives Records FoundDocuments on File Type Date Recorded Patient Angle Furnaceman Expl anation Advance Directive(s) 09/26/2021 3:14 PM Advance Directive Response Recorded Date/ Time Do you have a Healthcare Power of Electrical Equipment Technician? No November 19, 2024 8:46pm Advance Directive Response Recorded Date/ Time Do you have a Healthcare Power of Electrical Equipment Technician? No January 02, 2025 6:05pm Do you have a Healthcare Power of Electrical Equipment Technician? No November 19, 2024 8:46pm Advance Directive Response Recorded Date/ Time Do you have a Healthcare Power of Electrical Equipment Technician? No January 02, 2025 6:05pm Health Concerns [...] 2025 11:22am GERD (gastroesophageal reflux disease) S [id number] 11:22am Hyperlipidemia March 14, 2025 11:22am Morbid [...] or prosecute any alcohol or drug abuse patient.[facility] the event this information is protected by the Federal Confidentiality of Alcohol and Drug Abuse Patient Records regulations: The Federal rules restrict any use of the information to criminally investigate or prosecute any alcohol or drug abuse patient.[facility]In the event this information is protected by the Federal Confidentiality of Alcohol and Drug Abuse Patient Records regulations: The Federal rules restrict any use of the information to criminally investigate or prosecute any alcohol or drug abuse patient.[facility] HospitalIn the event this information is protected by the Federal Confidentiality of Alcohol and Drug Abuse Patient Records regulations: The Federal rules restrict any use of the information to criminally investigate or prosecute any alcohol or drug abuse patient.[facility] HospitalIn the event this information is protected by the Federal Confidentiality of Alcohol and Drug Abuse Patient Records regulations: The Federal rules restrict any use of the information to criminally investigate or prosecute any alcohol or drug abuse patient.[facility] HospitalIn the event this information is protected by the Federal Confidentiality of Alcohol and Drug Abuse Patient Records regulations: The Federal rules restrict any use of the information to criminally investigate or prosecute any alcohol or drug abuse patient.[facility] HospitalIn the event this information is protected by the Federal Confidentiality of Alcohol and Drug Abuse Patient Records regulations: The Federal rules restrict any use of the information to criminally investigate or prosecute any alcohol or drug abuse patient.[facility] HospitalIn the event this information is protected by the Federal Confidentiality of Alcohol and Drug Abuse Patient Records regulations: The Federal rules restrict any use of the information to criminally investigate or prosecute any alcohol or drug abuse patient.[facility] HospitalIn the event this information is protected by the Federal Confidentiality of Alcohol and Drug Abuse Patient Records regulations: The Federal rules restrict any use of the information to criminally investigate or prosecute any alcohol or drug abuse patient.[facility] HospitalIn the event this information is protected by the Federal Confidentiality of Alcohol and Drug Abuse Patient Records regulations: The Federal rules restrict any use of the information to criminally investigate or prosecute any alcohol or drug abuse patient.[facility] HospitalIn the event this information is protected by the Federal Confidentiality of Alcohol and Drug Abuse Patient Records regulations: The Federal rules restrict any use of the information to criminally investigate or prosecute any alcohol or drug abuse patient.[facility] HospitalIn the event this information is protected by the Federal Confidentiality of Alcohol and Drug Abuse Patient Records regulations: The Federal rules restrict any use of the information to criminally investigate or prosecute any alcohol or drug abuse patient.[facility] HospitalIn the event this information is protected by the Federal Confidentiality of Alcohol and Drug Abuse Patient Records regulations: The Federal rules restrict any use of the information to criminally investigate or prosecute any alcohol or drug abuse patient.[facility] HospitalIn the event this information is protected by the Federal Confidentiality of Alcohol and Drug Abuse Patient Records regulations: The Federal rules restrict any use of the information to criminally investigate or prosecute any alcohol or drug abuse patient.[facility] HospitalIn the event this information is protected by the Federal Confidentiality of Alcohol and Drug Abuse Patient Records regulations: The Federal rules restrict any use of the information to criminally investigate or prosecute any alcohol or drug abuse patient.[facility] HospitalIn the event this information is protected by the Federal Confidentiality of Alcohol and Drug Abuse Patient Records regulations: The Federal rules restrict any use of the information to criminally investigate or prosecute any alcohol or drug abuse patient.[facility] HospitalIn the event this information is protected by the Federal Confidentiality of Alcohol and Drug Abuse Patient Records regulations: The Federal rules restrict any use of the information to criminally investigate or prosecute any alcohol or drug abuse patient.[facility] HospitalIn the event this information is protected by the Federal Confidentiality of Alcohol and Drug Abuse Patient Records regulations: The Federal rules restrict any use of the information to criminally investigate or prosecute any alcohol or drug abuse patient.[facility] HospitalIn the event this information is protected by the Federal Confidentiality of Alcohol and Drug Abuse Patient Records regulations: The Federal rules restrict any use of the information to criminally investigate or prosecute any alcohol or drug abuse patient.[facility] HospitalIn the event this information is protected by the Federal Confidentiality of Alcohol and Drug Abuse Patient Records regulations: The Federal rules restrict any use of the information to criminally investigate or prosecute any alcohol or drug abuse patient.[facility] HospitalIn the event this information is protected by the Federal Confidentiality of Alcohol and Drug Abuse Patient Records regulations: The Federal rules restrict any use of the information to criminally investigate or prosecute any alcohol or drug abuse patient.[facility] HospitalIn the event this information is protected by the Federal Confidentiality of Alcohol and Drug Abuse Patient Records regulations: The Federal rules restrict any use of the information to criminally investigate or prosecute any alcohol or drug abuse patient.[facility] HospitalIn the event this information is protected by the Federal Confidentiality of Alcohol and Drug Abuse Patient Records regulations: The Federal rules restrict any use of the information to criminally investigate or prosecute any alcohol or drug abuse patient.[facility] HospitalIn the event this information is protected by the Federal Confidentiality of Alcohol and Drug Abuse Patient Records regulations: The Federal rules restrict any use of the information to criminally investigate or prosecute any alcohol or drug abuse patient.[facility] HospitalIn the event this information is protected by the Federal Confidentiality of Alcohol and Drug Abuse Patient Records regulations: The Federal rules restrict any use of the information to criminally investigate or prosecute any alcohol or drug abuse patient.[facility] HospitalIn the event this information is protected by the Federal Confidentiality of Alcohol and Drug Abuse Patient Records regulations: The Federal rules restrict any use of the information to criminally investigate or prosecute any alcohol or drug abuse patient.[facility] HospitalIn the event this information is protected by the Federal Confidentiality of Alcohol and Drug Abuse Patient Records regulations: The Federal rules restrict any use of the information to criminally investigate or prosecute any alcohol or drug abuse patient.[facility] HospitalIn the event this information is protected by the Federal Confidentiality of Alcohol and Drug Abuse Patient Records regulations: The Federal rules restrict any use of the information to criminally investigate or prosecute any alcohol or drug abuse patient.[facility] HospitalIn the event this information is protected by the Federal Confidentiality of Alcohol and Drug Abuse Patient Records regulations: The Federal rules restrict any use of the information to criminally investigate or prosecute any alcohol or drug abuse patient.[facility] HospitalIn the event this information is protected by the Federal Confidentiality of Alcohol and Drug Abuse Patient Records regulations: The Federal rules restrict any use of the information to criminally investigate or prosecute any alcohol or drug abuse patient.[facility] HospitalIn the event this information is protected by the Federal Confidentiality of Alcohol and Drug Abuse Patient Records regulations: The Federal rules restrict any use of the information to criminally investigate or prosecute any alcohol or drug abuse patient.[facility] HospitalIn the event this information is protected by the Federal Confidentiality of Alcohol and Drug Abuse Patient Records regulations: The Federal rules restrict any use of the information to criminally investigate or prosecute any alcohol or drug abuse patient.[facility] HospitalIn the event this information is protected by the Federal Confidentiality of Alcohol and Drug Abuse Patient Records regulations: The Federal rules restrict any use of the information to criminally investigate or prosecute any alcohol or drug abuse patient.[facility] HospitalIn the event this information is protected by the Federal Confidentiality of Alcohol and Drug Abuse Patient Records regulations: The Federal rules restrict any use of the information to criminally investigate or prosecute any alcohol or drug abuse patient.[facility] HospitalIn the event this information is protected by the Federal Confidentiality of Alcohol and Drug Abuse Patient Records regulations: The Federal rules restrict any use of the information to criminally investigate or prosecute any alcohol or drug abuse patient.[facility] HospitalIn the event this information is protected by the Federal Confidentiality of Alcohol and Drug Abuse Patient Records regulations: The Federal rules restrict any use of the information to criminally investigate or prosecute any alcohol or drug abuse patient.[facility] HospitalIn the event this information is protected by the Federal Confidentiality of Alcohol and Drug Abuse Patient Records regulations: The Federal rules restrict any use of the information to criminally investigate or prosecute any alcohol or drug abuse patient.[facility] HospitalIn the event this information is protected by the Federal Confidentiality of Alcohol and Drug Abuse Patient Records regulations: The Federal rules restrict any use of the information to criminally investigate or prosecute any alcohol or drug abuse patient.[facility] Care Teams (unrecognized sec tion and content) 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 Start Date End Date Steffany Hernandez MD [address] [facility] [address] [place] [address] Referring Internal Medicine 11/13/21 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 Start Date End Date Steffany Hernandez MD [address] [address] [place] [address] Referring Internal Medicine 11/13/21 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 Start Date End Date Steffany Hernandez MD [address] [facility] [address] [place] [address] Referring Internal Medicine 11/13/21 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 Start Date End Date Monica Fernandez MD [address] [place] [address] PCP - General Internal Medicine 05/15/22 Steffany Hernandez MD [address] [facility] [address] [place] [address] Referring Internal Medicine 11/13/21 Monica Fernandze MD [address] [place] [address] Internal Medicine 05/01/22 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 Start Date End Date Monica Fernandez MD [address] [place] [address] PCP - General Internal Medicine 05/15/22 Steffany Hernandez MD [address] [facility] [address] [place] [address] Referring Internal Medicine 11/13/21 Monica Fernandez MD [address] [place] [address] Internal Medicine 05/01/22 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 Start Date End Date Monica Fernandez MD [address] [place] [address] PCP - General Internal Medicine 05/15/22 Steffany Hernandez MD [address] [facility] [address] [place] [address] Referring Internal Medicine 11/13/21 Monica Fernandez MD [address] [place] [address] Internal Medicine 05/01/22 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 Start Date End Date Monica Fernandez MD [address] [place] [address] PCP - General Internal Medicine 05/15/22 Steffany Hernandez MD [address] [address] [place] [address] Referring Internal Medicine 11/13/21 Monica Fernandez MD [address] [place] [address] Internal Medicine 05/01/22 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 Start Date End Date Monica Fernandez MD [address] [place] [address] PCP - General Internal Medicine 05/15/22 Steffany Hernandez MD [address] [place] [address] Referring Internal Medicine 11/13/21 Monica Fernandez MD [address] [place] [address] Internal Medicine 05/01/22 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 Start Date End Date Monica Fernandez MD [address] [place] [address] PCP - General Internal Medicine 05/15/22 Steffany Hernandez MD [address] [place] [address] Referring Internal Medicine 11/13/21 Monica Fernandez MD [address] [place] [address] Internal Medicine 05/01/22 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 Start Date End Date Monica Fernandez MD [address] [place] [address] PCP - General Internal Medicine 05/15/22 Steffany Hernandez MD [address] [place] [address] Referring Internal Medicine 11/13/21 Monica Fernandez MD [address] [place] [address] Internal Medicine 05/01/22 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 Start Date End Date Monica Fernandez MD [address] [place] [address] PCP - General Internal Medicine 05/15/22 Steffany Hernandez MD [address] [place] [address] Referring Internal Medicine 11/13/21 Monica Fernandez MD [address] [place] [address] Internal Medicine 05/01/22 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 Start Date End Date Monica Fernandez MD [address] [place] [address] PCP - General Internal Medicine 05/15/22 Steffany Hernandez MD [address] [address] Referring Internal Medicine 11/13/21 Monica Fernandez MD [address] [address] Internal Medicine 05/01/22 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 Start Date End Date Hilda Holley DO [address] [place] [address] PCP - General Family Medicine 08/22/24 Steffany Hernandez MD [address] [place] [address] Referring Internal Medicine 11/13/21 Monica Fernandez MD [address] [address] Internal Medicine 05/01/22 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 Start Date End Date Hilda Holley DO [address] [place] [address] PCP - General Family Medicine 08/22/24 Steffany Hernandez MD [address] [address] Referring Internal Medicine 11/13/21 Monica Fernandez MD [address] [address] Internal Medicine 05/01/22 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 Start Date End Date Hilda Holley DO [address] [place] [address] PCP - General Family Medicine 08/22/24 Steffany Hernandez MD [address] [facility] [address] [place] [address] Referring Internal Medicine 11/13/21 Monica Fernandez MD [address] [place] [address] Internal Medicine 05/01/22 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 Start Date End Date Hilda Holley DO [address] [place] [address] PCP - General Family Medicine 08/22/24 Steffany Hernandez MD [address] [facility] [address] [place] [address] Referring Internal Medicine 11/13/21 Monica Fernandez MD [address] [place] [address] Internal Medicine 05/01/22 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 Start Date End Date Hilda Holley DO [address] [place] [address] PCP - General Family Medicine 08/22/24 Steffany Hernandez MD [address] [facility] [address] [place] [address] Referring Internal Medicine 11/13/21 Monica Fernandez MD [address] [phone] Internal Medicine 05/01/22 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 Hilda Holley DO Primary Care Provider Active Team Status: Inactive Member Role Status Dates Dr. Froylan Palmer MD Emergency Provider Active Sta rt: November 19, 2024 End: November 19, 2024 Dr. 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 Froylan Palmer MD Attending Provider Active Sta rt: November 19, 2024 End: November 19, 2024 Dr. Froylan Palmer MD Emergency Provider Active Sta rt: November 19, 2024 End: November 19, 2024 Dr. Hilda Holley DO Primary Care Provider Active Start: November 19, 2024 End: November 19, 2024 Team Status: Inactive Member Role Status Dates Dr. Hilda Holley DO Primary Care Provider Active Start: January 02, 2025 End: January 03, 2025 Dr. 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 Start Date End Date Akilah Wiggins APRN.SWITCHBOARD AND CONTROL ROOM OPERATOR [address] [place] [address] PCP - General Family Medicine 01/24/25 Steffany Hernandez MD [address] [place] [address] Referring Internal Medicine 11/13/21 Monica Fernandez MD [address] [place] [phone] Internal Medicine 05/01/22 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 Start Date End Date Akilah Wiggins APRN.SWITCHBOARD AND CONTROL ROOM OPERATOR [address] [place] [address] PCP - General Family Medicine 01/24/25 Steffany Hernandez MD [address] [place] [address] Referring Internal Medicine 11/13/21 Monica Fernandez MD [address] [place] [phone] Internal Medicine 05/01/22 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 Start Date End Date Akilah Wiggins APRN.SWITCHBOARD AND CONTROL ROOM OPERATOR [address] [place] [address] PCP - General Family Medicine 01/24/25 Steffany Hernandez MD [address] [place] [address] Referring Internal Medicine 11/13/21 Monica Fernandez MD [address] [place] [phone] Internal Medicine 05/01/22 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 Start Date End Date Akilah Wiggins APRN.SWITCHBOARD AND CONTROL ROOM OPERATOR [address] [place] [address] PCP - General Family Medicine 01/24/25 Steffany Hernandez MD [address] [place] [address] Referring Internal Medicine 11/13/21 Monica Fernandez MD [address] [place] [phone] Internal Medicine 05/01/22 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 Start Date End Date Akilah Wiggins APRN.SWITCHBOARD AND CONTROL ROOM OPERATOR [address] [place] [address] PCP - General Family Medicine 01/24/25 Steffany Hernandez MD [address] [place] [address] Referring Internal Medicine 11/13/21 Monica Fernandez MD [address] [place] [phone] Internal Medicine 05/01/22 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 Start Date End Date Akilah Wiggins APRN.SWITCHBOARD AND CONTROL ROOM OPERATOR [address] [place] [address] PCP - General Family Medicine 01/24/25 Steffany Hernandez MD [address] [facility] [address] [place] [address] Referring Internal Medicine 11/13/21 Monica Fernandez MD [address] [phone] Internal Medicine 05/01/22 Lucien Taylor MD Clinical Review Specialist 02/09/25 02/23/25 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 Start Date End Date Akilah Wiggins APRN.SWITCHBOARD AND CONTROL ROOM OPERATOR [address] [place] [address] PCP - General Family Medicine 01/24/25 Steffany Hernandez MD [address] [address] [place] [address] Referring Internal Medicine 11/13/21 Monica Fernandez MD [address] [phone] Internal Medicine 05/01/22 Lucien Taylor MD Clinical Review Specialist 02/09/25 02/23/25 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 Start Date End Date Akilah Wiggins APRN.SWITCHBOARD AND CONTROL ROOM OPERATOR [address] [place] [address] PCP - General Family Medicine 01/24/25 Steffany Hernandez MD [address] [place] [address] [place] [address] Referring Internal Medicine 11/13/21 Monica Fernandez MD [address] [place] [phone] Internal Medicine 05/01/22 Lucien Taylor MD Clinical Review Specialist 02/09/25 02/23/25 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 Start Date End Date Akilah Wiggins APRN.SWITCHBOARD AND CONTROL ROOM OPERATOR [address] [place] [address] PCP - General Family Medicine 01/24/25 Steffany Hernandez MD [address] [place] [address] Referring Internal Medicine 11/13/21 Monica Fernandez MD [address] [phone] Internal Medicine 05/01/22 Lucien Taylor MD Clinical Review Specialist 02/09/25 02/23/25 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 Start Date End Date Akilah Wiggins APRN.SWITCHBOARD AND CONTROL ROOM OPERATOR [address] [place] [address] PCP - General Family Medicine 01/24/25 Steffany Hernandez MD [address] [place] [address] 4 [place] [address] Referring Internal Medicine 11/13/21 Monica Fernandez MD [address] [place] [phone] Internal Medicine 05/01/22 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 Start Date End Date Akilah Wiggins APRN.SWITCHBOARD AND CONTROL ROOM OPERATOR [address] [place] [address] PCP - General Family Medicine 01/24/25 Steffany Hernandez MD [address] [place] [address] Referring Internal Medicine 11/13/21 Monica Fernandez MD [address] [place] [phone] Internal Medicine 05/01/22 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 Start Date End Date Akilah Wiggins APRN.SWITCHBOARD AND CONTROL ROOM OPERATOR [address] [place] [address] PCP - General Family Medicine 01/24/25 Steffany Hernandez MD [address] [place] [address] 4 [place] [address] Referring Internal Medicine 11/13/21 Monica Fernandez MD [address] [phone] Internal Medicine 05/01/22 Provider, MD Lucien Clinical Review Specialist 02/09/25 02/23/25 Team Status: Active Member Role/Relationship Status Dates Akilah Wiggins OVERHEAD WORKER-C Primary Care Provider Active Team Status: Inactive Member Role/Relationship Status Dates Dr. Froylan Palmer MD Attending Provider Active Sta rt: November 19, 2024 End: November 19, 2024 Dr. Froylan Palmer MD Emergency Provider Active Sta rt: November 19, 2024 End: November 19, 2024 Dr. Hilda Holley , DO Primary Care Provider Active Start: November 19, 2024 End: November 19, 2024 Team Status: Inactive Member Role/Relationship Status Dates Dr. Hilda Holley , DO Primary Care Provider Active Start: January [...] Sta rt: February 14, 2025 Akilah Wiggins OVERHEAD WORKER-C Primary Care Provider Active Start: February 14, 2025 Akilah Wiggins OVERHEAD WORKER-C Referring Provider Active Start: February 14, 2025 Team Status: Active Member Role/Relationship Status Dates Dr. Russ Mancuso MD Attending Provider Active Start: February 21, 2025 Dr. Russ Mancuso MD Other Provider Active Sta rt: February 21, 2025 Akilah Wiggins OVERHEAD WORKER-C Primary Care Provider Active Start: February 21, 2025 Akilah Wiggins OVERHEAD WORKER-C Referring Provider Active Start: February 21, 2025 Team Status: Inactive Member Role/Relationship Status Dates Dr. Russ Mancuso MD Attending Provider Active Start: February 28, 2025 End: March 12, 2025 Akilah Wiggins OVERHEAD WORKER-C Primary Care Provider Active Start: February 28, 2025 End: March 12, 2025 Akilah Wiggins OVERHEAD WORKER-C Referring Provider Active Start: February 28, 2025 End: March 12, 2025 Team Status: Active Member Role/Relationship Status Dates Dr. Russ Mancuso MD Attending Provider Active Start: February 28, 2025 Dr. Russ Mancuso MD Other Provider Active Sta rt: February 28, 2025 Akilah Wiggins , OVERHEAD WORKER-C Primary Care Provider Active Start: February 28, 2025 Akilah Wiggins , OVERHEAD WORKER-C Referring Provider Active Start: February 28, 2025 Team Status: Active Member Role/Relationship Status Dates Akilah Wiggins , OVERHEAD WORKER-C Primary care physician Active Team Status: Inactive Member Role/Relationship Status Dates Dr. Hilda Holley , DO Primary care physician Active Start: January 02, 2025 End: January 03, 2025 Dr. Cale Dolan , Attending physician Active Start: January 02, 2025 End: January 03, 2025 Dr. Cale Dolan , Emergency Department Physician Active Start: January 02, 2025 End: January 03, 2025 Team Status: Active Member Role/Relationship Status Dates Dr. Russ Mancuso MD Attending physician Active Start: February 14, 2025 Dr. Russ Mancuso MD Nurse Practitioner Active Start: February 14, 2025 Akilah Wiggins , OVERHEAD WORKER-C Primary care physician Active Start: February 14, 2025 Akilah Wiggins , OVERHEAD WORKER-C Referring Provider Active Start: February 14, 2025 Team Status: Active Member Role/Relationship Status Dates Dr. Russ Mancuso MD Attending physician Active Start: February 21, 2025 Dr. Russ Mancuso MD Nurse Practitioner Active Start: February 21, 2025 Akilah Wiggins , OVERHEAD WORKER-C Primary care physician Active Start: February 21, 2025 Akilah Wiggins , OVERHEAD WORKER-C Referring Provider Active Start: February 21, 2025 Team Status: Inactive Member Role/Relationship Status Dates Dr. Russ Mancuso MD Attending physician Active Start: February 28, 2025 End: March 12, 2025 Akilah Wiggins , OVERHEAD WORKER-C Primary care physician Active Start: February 28, 2025 End: March 12, 2025 Akilah Wiggins , OVERHEAD WORKER-C Referring Provider Active Start: February 28, 2025 End: March 12, 2025 Team Status: Active Member Role/Relationship Status Dates Dr. Russ Mancuso MD Attending physician Active Start: February 28, 2025 Dr. Russ Mancuso MD Nurse Practitioner Active Start: February 28, 2025 Akilah Wiggins OVERHEAD WORKER-C Primary care physician Active Start: February 28, 2025 Akilah Wiggins , OVERHEAD WORKER-C Referring Provider Active Start: February 28, 2025 Team Status: Active Member Role/Relationship Status Dates Dr. Russ Mancuso MD Attending physician Active Start: March 14, 2025 Akilah Wiggins OVERHEAD WORKER-C Primary care physician Active Start: March 14, 2025 Akilah Wiggins OVERHEAD WORKER-C Referring Provider Active Start: March 14, 2025 Team Status: Active Member Role/Relationship Status Dates Dr. Russ Mancuso MD Attending physician Active Start: March 14, 2025 Dr. Russ Mancuso MD Nurse Practitioner Active Start: March 14, 2025 Akilah Wiggins OVERHEAD WORKER-C Primary care physician Active Start: March 14, 2025 Akilah Wiggins OVERHEAD WORKER-C Referring Provider Active Start: March 14, 2025 Team Status: Inactive Member Role/Relationship Status Dates Akilah Wiggins OVERHEAD WORKER-C Primary care physician Active Start: March 29, 2025 End: March 29, 2025 Akilah Wiggins OVERHEAD WORKER-C Referring Provider Active Start: March 29, 2025 End: March 29, 2025 Dr. Shoaib Prado MD Attending physician Active Start: March 29, 2025 End: March 29, 2025 Team Status: Inactive Member Role/Relationship Status Dates Dr. Russ Mancuso MD Attending physician Active Start: March 14, 2025 End: April 11, 2025 Akilah Wiggins OVERHEAD WORKER-C Primary care physician Active Start: March 14, 2025 End: April 11, 2025 Akilah Wiggins OVERHEAD WORKER-C Referring Provider Active Start: March 14, 2025 [...] Reason Comments Establish Care Needs sleep apnea lanette sesay. Depression Reason Onset Date Comments ED Follow-up 09/26/2024 [facility] Reason Onset Date Comments Results 10/12/2024 Reason Comments Forms [place] CPAP Supply Order Reason Comments PT Eval Specialty Diagnoses / Procedures Referred By Contac t Referred To Contact PHYSICAL THERAPY Diagnoses Chronic left shoulder pain Procedures CONSULT TO PHYSICAL THERAPY PHYSICAL THERAPY EVALUATION HIGH COMPLEX 45 MINS Hilda Holley DO [address] [place] [address] Phone: tel: fax: Shayy Dunbar, PT [address] [place] [address] Phone: tel: Referral ID Status Reason Start Date Expiration Date Visits Requested Visits Authorized [id number] Authorized Auto-Generat ed Referral 08/13/2024 07/12/2025 8 8 Reason Comments Procedure Specialty Diagnoses / Procedures Referred By Contac t Referred To Contact SLEEP DISORDERS Diagnoses Obstructive sleep apnea (adult) (pediatric) Split Procedures POLYSOM 6/>YRS SLEEP W/CPAP 4/> ADDL SATISH ATTND PSG PAP TITRATION Hilda Holley DO [address] [place] [address] Phone: tel: fax: [facility] [address] [place] [address] Phone: tel: fax: Referral ID Status Reason Start Date Expiration Date V isits Requested Visits Authorized [id number] Closed Clearance Not Met - Admin/Chairm an/Director Advise to Postpone/Res chedule or Not Proceed 08/29/2024 09/26/2024 1 1 Reason Onset Date Comments ED Follow-up 11/19/2024 [facility] 2024 Reason Comments Blurred Vision Both Eyes Reason Comments Forms [facility] Order Reason Comments Trauma Right leg wound x 2 weeksNausea x 1 weekSore under belly x 1 week Reason Onset Date Comments ED Follow-up 01/04/2025 [facility] 12/29/24, [facility] ER 01/02/25 Reason Comments Establish Care Reason Comments Medication Problem Reason Comments Cellulitis Reason Comments Patient Update Reason Comments Follow Up Reason Comments Cellulitis Under umbilicus Specialty Diagnoses / Procedures Referred By Lakisha okeefe Referred To Contact General Surgery Diagnoses Morbid obesity (HCC) Abdominal wall cellulitis Procedures OFFICE/OUTPATIENT [facility] MDM 60 MINUTES Akilah Wiggins APRN.SWITCHBOARD AND CONTROL ROOM OPERATOR [address] [place] [address] Phone: tel: fax: Referral ID Status Reason Start Date Expiration Date V isits Requested Visits Authorized [id number] Closed PCP Requested Referral 01/24/2025 01/24/2026 1 1 Reason Comments Follow Up Reason Comments Faxed Referral Cardiology-[facility] Reason Onset Date Comments Results 02/16/2025 INFORMATION SOURCE (unrecogn ized section and content) DATE CREATED AUTHOR 05/22/2024 [facility] DATE CREATED AUTHOR AUTHOR'S ORGANIZ ATION 01/28/2025 [facility] DATE CREATED AUTHOR AUTHOR'S ORGANIZ ATION 02/18/2025 [facility] DATE CREATED AUTHOR AUTHOR'S ORGANIZ ATION 04/20/2025 [facility] DATE CREATED AUTHOR AUTHOR'S ORGANIZ ATION 04/24/2025 [facility] Goals (unrecognized section and content) Goals may [...] BE BASED ON THE PRIMARY CLINICAL RECORDS. Sold [facility]. provides no warranty or guarantee of the accuracy or completeness of information in this document.
--- NOTE | 2025-07-04 03:22 | PCM.HP.STD ---
HPI - General General Date of Admission: 07/04/25 Chief Complaint: Worsening shortness of breath HPI Narrative BHUPENDRA KIMBLE, is a 45 F with medical history of COPD, BRITTANY and possible OHS on nocturnal CPAP with chronic hypoxemic hypercapnic respiratory failure on 4 L oxygen presents with worsening shortness of breath. She denies any worsening in her wheezing, worsening in cough or change in phlegm. She states she has chronic leg swelling she was on Lasix before but was not prescribed again and it used to help. She follows with cardiology, the note from March showed that her EF was normal 65% but she has grade 3 diastolic function and mild RV dilatation. In the ED patient remained on 4 L oxygen at rest with O2 saturation up to 92% but significant drop to 83% with minimal ambulation and physical activity in the room. She is a she does not increase her 4 L when she walks at home. Chest x-ray showed congestion and possible edema She was given nebulizer treatment and IV antibiotics [facility] Medical History Chest pain Dizziness Anxiety Right ventricular diastolic dysfunction Dependent edema Obstructive sleep apnea on CPAP Morbid obesity with BMI of 60.0-69.9, adult Non-pressure ulcer of right lower extremity with fat layer exposed Asthma Tobacco abuse Schizophrenia ADHD Hyperlipidemia GERD (gastroesophageal reflux disease) Toxoplasmosis chorioretinitis COPD (chronic obstructive pulmonary disease) Home Medications ?Medication ?Instructions ?Recorded ?Last Taken ?Type albuterol sulfate 90 mcg/actuation 2 puff inhalation Q4H PRN PRN 07/11/24 Unknown Rx aerosol inhaler (Ventolin HFA) Wheezing ##1 celecoxib 100 mg capsule 100 mg PO DAILY 01/02/25 Unknown History cetirizine 10 mg tablet 10 mg PO DAILY 01/02/25 Unknown History pantoprazole 40 mg tablet,delayed 40 mg PO DAILY 01/02/25 Unknown History release trazodone 50 mg tablet 100 mg PO QHS 01/02/25 Unknown History atorvastatin 10 mg tablet (Lipitor) 10 mg PO DAILY 02/14/25 Unknown History fluticasone 250 mcg-salmeterol 50 1 inh inhalation BID 02/14/25 Unknown History mcg/dose blistr powdr for inhalation (Advair Diskus) ipratropium 0.5 mg-albuterol 3 mg ml 02/14/25 Unknown History (2.5 mg base)/3 mL nebulization soln lumateperone 21 mg capsule 21 mg PO DAILY 02/14/25 Unknown History (Caplyta) omega-3 acid ethyl esters 1 gram cap PO 02/14/25 Unknown History capsule propranolol 20 mg tablet 20 mg PO BID 02/14/25 Unknown History venlafaxine 225 mg tablet,extended 225 mg PO DAILY 03/08/25 Unknown History release 24 hr bupropion HCl 150 mg 24 hr tablet, 300 mg PO DAILY 03/29/25 Unknown History extended release (Wellbutrin XL) venlafaxine 37.5 mg 37.5 mg PO QDAY depressive disorder 03/29/25 Unknown History capsule,extended release 24 hr doxycycline hyclate 100 mg capsule 100 mg PO BID 5 days #10 caps 07/04/25 Unknown Rx prednisone 50 mg tablet 50 mg PO DAILY 4 days #4 tabs 07/04/25 Unknown Rx Allergy/AdvReac Type Severity Reaction Status Date / Time nystatin Allergy Intermediate Rash Verified 07/03/25 21:35 Surgical History Hx of cholecystectomy Hx of appendectomy Social History household members: friend(s) Smoking Status: Former smoker alcohol intake: current alcohol intake frequency: holidays/special occasions only substance use type: does not use ROS Constitutional Constitutional: Denies fever(s) or poor appetite ENT HEENT: Reports none Cardiovascular Cardiovascular: Denies chest pain or dyspnea Respiratory/Chest Respiratory/Chest: Denies cough or wheezing Gastrointestinal Gastrointestinal: Denies abdominal pain or change in bowel habits Genitourinary Genitourinary: Denies change in urinary stream or dysuria Musculoskeletal Musculoskeletal: Denies arthralgias or myalgias Integumentary Integumentary: Reports none Neurologic Neurologic: Denies abnormal speech, dizziness, focal weakness, loss of vision or numbness Hematologic/Lymphatic Hematologic/Lymphatic: Reports none Patient's Goals Of Care . What would you like to achieve or improve as a result of your hospital stay?: Improve COPD Vital Signs Vital Signs Vital Signs: 07/03/25 21:34 07/03/25 21:35 07/03/25 22:10 Temperature 97.1 F L 97.1 F L Temperature Source Oral Oral Pulse Rate 79 88 Respiratory Rate 30 H 25 H Respiratory Effort Short of Breath Labored Respiratory Depth Normal Respiratory Pattern Normal Blood Pressure 191/115 H 165/122 H Blood Pressure Mean 140 136 Pulse Ox 89 81 Oxygen Delivery Method Room Air Room Air Nasal Cannula Oxygen Flow Rate (L/min) 2 07/03/25 22:14 07/03/25 22:51 07/03/25 23:18 Temperature Temperature Source Pulse Rate 71 72 Respiratory Rate 22 H 21 H Respiratory Effort Respiratory Depth Respiratory Pattern Tachypnea Blood Pressure 163/125 H Blood Pressure Mean 137 Pulse Ox 97 Oxygen Delivery Method Nasal Cannula Nasal Cannula Oxygen Flow Rate (L/min) 07/03/25 23:18 07/04/25 00:00 07/04/25 01:11 Temperature 98.1 F 98.5 F Temperature Source Temporal Temporal Pulse Rate 72 93 Respiratory Rate 21 H 23 H Respiratory Effort Respiratory Depth Respiratory Pattern Blood Pressure 163/125 H 189/93 H Blood Pressure Mean 137 125 Pulse Ox 97 92 91 Oxygen Delivery Method Nasal Cannula Nasal Cannula Nasal Cannula Oxygen Flow Rate (L/min) 2 07/04/25 01:23 07/04/25 02:02 07/04/25 03:00 Temperature 98.5 F Temperature Source Pulse Rate 93 89 Respiratory Rate 23 H 22 H Respiratory Effort Respiratory Depth Respiratory Pattern Blood Pressure 189/93 H Blood Pressure Mean 125 Pulse Ox 91 90 93 Oxygen Delivery Method Nasal Cannula Nasal Cannula Oxygen Flow Rate (L/min) 2 2 Weight Weight: 160.5 kg Body Mass Index (BMI) 69.0 Physical Exam Const alert and oriented x3 HEENT normocephalic and head/scalp atraumatic Eyes EOMs intact bilaterally; Negative for no scleral icterus Neck supple Resp Resp Narrative: Dyspneic while talking, diminished air entry on exam Cardio regular rate and regular rhythm; Negative for no murmurs GI normal to inspection, nondistended, normoactive bowel sounds; Negative for non-tender no CVA tenderness Extremity no joint enlargement and no pedal edema Skin no rashes or lesions noted Neuro oriented x3 and moves all extremities Results Lab / Micro Data 07/03/25 22:12 07/03/25 22:12 Labs: Laboratory Results - last 24 hr 07/03/25 22:10: Urine Color Yellow, Urine Clarity Sl Cloudy, Urine pH 6.5, Ur Specific [place] 1.010, Urine Protein 100 H, Urine Glucose (UA) Normal, Urine Ketones Negative, Urine Occult Blood 10 H, Urine Nitrite Negative, Urine Bilirubin Negative, Urine Urobilinogen Normal, Ur Leukocyte Esterase Negative, Urine RBC 0-5 SEEN, Urine WBC 0-5 SEEN, Ur Squamous Epith Cells 0-5 SEEN, Urine Bacteria 1+, Urine Mucus 0 SEEN 07/03/25 22:12: WBC 11.2 H, RBC 5.14, Hgb 13.3, Hct 41.8, MCV 81.3, MCH 25.9 L, MCHC 31.8 L, RDW Std Deviation 48.5 H, RDW Coeff of Herberth 16.9 H, Plt Count 292, MPV 9.3, Immature Gran % (Auto) 2.100 H, Neut % (Auto) 71.6 H, Lymph % (Auto) 16.8 L, Boyd % (Auto) 6.5, Eos % (Auto) 2.2, Baso % (Auto) 0.8, Absolute Neuts (auto) 8.0 H, Absolute Lymphs (auto) 1.88, Nucleated RBC % 0.2, PT 15.0 H, INR 1.2, APTT 32.0, Sodium 138, Potassium 4.1, Chloride 99, Carbon Dioxide 27.6, Anion Gap 11, BUN 6, Creatinine 0.65 L, Estim Creat Clear Calc 161.20, Est GFR (MDRD) Non-Af 112, BUN/Creatinine Ratio 9.0 L, Glucose 95, Lactic Acid 1.4, Calcium 9.5, Total Bilirubin 0.97, AST 25, ALT 18, Alkaline Phosphatase 141 H, Total Protein 7.6, Albumin 4.1, Globulin 3.6, Albumin/Globulin Ratio 1.1 Micro: Microbiology 07/03/25 22:10 Mucosa - Nose SARS-CoV-2, Influenza & RSV (PCR) - Final Imaging Radiology Impression Chest X-Ray 07/03/25 23:20 IMPRESSION: Probable edema in the setting of cardiomegaly. Reading Location: [facility] Assessment & Plan Assessment/Plan (1) COPD exacerbation: (2) Fluid overload: QUALIFIERS: Hypervolemia type: other Qualified Code(s): E87.79 - Other fluid overload (3) (HFpEF) heart failure with preserved ejection fraction: QUALIFIERS: Heart failure chronicity: acute on chronic Qualified Code(s): I50.33 - Acute on chronic diastolic (congestive) heart failure (4) Obstructive sleep apnea on CPAP: PLAN: Plan Admission to [facility] Worsening dyspnea is most likely related to fluids and CHF with diastolic function (HFpEF) with mild exacerbation of COPD as a result Start IV Lasix and treat for COPD exacerbation with nebulizers, steroids and azithromycin Continue nightly CPAP 17 cm H2O Continue home medications propranolol for anxiety, Effexor for depression and mood and Caplyta Lovenox 40 twice daily because of high BMI for VTE prophylaxis Charges/Coding Visit Charges Inpatient E&M: 10161 Init Hosp L3
[2025-07-04] MEDS: LUMATEPERONE TOSYLATE 42 MG CAPSULE PO ×2 (05:11→22:02)
[2025-07-04] MEDS: 0.9% Saline Lock 10 ML Syringe IV ×3 (05:12→22:04)
--- NOTE | 2025-07-04 07:12 | PCM.PN.HOSP ---
Reason for Visit Chief Complaint: Worsening shortness of breath Subjective Subjective Patient is a 45-year-old lady who presented with progressive shortness of breath. Objective Data Objective Data Vital Signs: Vital Signs Temp Pulse Resp BP Pulse Ox O2 Del Method O2 Flow Rate 97.9 F 88 18 152/75 H 93 Nasal Cannula 3 07/04/25 04:48 07/04/25 04:48 07/04/25 04:48 07/04/25 04:48 07/04/25 04:48 07/04/25 04:50 07/04/25 04:50 Oxygen Flow Rate (L/min) 3 Oxygen Delivery Method Nasal Cannula Weight: 161.7 kg Body Mass Index (BMI) 69.9 Intake & Output: Intake and Output for Last 24 Hours 07/02/25 07/03/25 07/04/25 23:59 23:59 23:59 Intake Total 1600 / 1600 Balance 1600 / 1600 Lab / Micro Data 07/03/25 22:12 07/03/25 22:12 Labs: Laboratory Results - last 24 hr 07/03/25 22:10: Urine Color Yellow, Urine Clarity Sl Cloudy, Urine pH 6.5, Ur Specific [place] 1.010, Urine Protein 100 H, Urine Glucose (UA) Normal, Urine Ketones Negative, Urine Occult Blood 10 H, Urine Nitrite Negative, Urine Bilirubin Negative, Urine Urobilinogen Normal, Ur Leukocyte Esterase Negative, Urine RBC 0-5 SEEN, Urine WBC 0-5 SEEN, Ur Squamous Epith Cells 0-5 SEEN, Urine Bacteria 1+, Urine Mucus 0 SEEN 07/03/25 22:12: WBC 11.2 H, RBC 5.14, Hgb 13.3, Hct 41.8, MCV 81.3, MCH 25.9 L, MCHC 31.8 L, RDW Std Deviation 48.5 H, RDW Coeff of Herberth 16.9 H, Plt Count 292, MPV 9.3, Immature Gran % (Auto) 2.100 H, Neut % (Auto) 71.6 H, Lymph % (Auto) 16.8 L, [place] % (Auto) 6.5, Eos % (Auto) 2.2, Baso % (Auto) 0.8, Absolute Neuts (auto) 8.0 H, Absolute Lymphs (auto) 1.88, Nucleated RBC % 0.2, PT 15.0 H, INR 1.2, APTT 32.0, Sodium 138, Potassium 4.1, Chloride 99, Carbon Dioxide 27.6, Anion Gap 11, BUN 6, Creatinine 0.65 L, Estim Creat Clear Calc 161.20, Est GFR (MDRD) Non-Af 112, BUN/Creatinine Ratio 9.0 L, Glucose 95, Lactic Acid 1.4, Calcium 9.5, Total Bilirubin 0.97, AST 25, ALT 18, Alkaline Phosphatase 141 H, Total Protein 7.6, Albumin 4.1, Globulin 3.6, Albumin/Globulin Ratio 1.1 Micro: Microbiology 07/03/25 22:10 Mucosa - Nose SARS-CoV-2, Influenza & RSV (PCR) - Final Radiography Diagnostic Testing: Radiology Impression Chest X-Ray 07/03/25 23:20 IMPRESSION: Probable edema in the setting of cardiomegaly. Reading Location: [facility] Physical Exam Narrative GENERAL: cooperative HEENT: Atraumatic; normocephalic EYES; Anicteric, Normal Conjunctiva NECK; supple, normal thyroid, RESPIRATORY: Diminished to auscultation CARDIOVASCULAR: Regular S1 S2, GI: soft, normoactive bowel sounds, : No Renal angle tenderness; EXTREMITIES: No edema, no clubbing, MUSCULOSKELETAL: no muscle wasting NEURO: Awake; no lateralizing signs. SKIN: No Rash PSYCH; Flat affect Assessment & Plan Assessment/Plan (1) COPD exacerbation: (2) Fluid overload: QUALIFIERS: Hypervolemia type: other Qualified Code(s): E87.79 - Other fluid overload (3) (HFpEF) heart failure with preserved ejection fraction: QUALIFIERS: Heart failure chronicity: acute on chronic Qualified Code(s): I50.33 - Acute on chronic diastolic (congestive) heart failure (4) Obstructive sleep apnea on CPAP: PLAN: Plan Patient is a 45-year-old lady who presented with progressive shortness of breath. 1. Acute on chronic hypoxic respiratory failure ? Secondary to a combination of CHF, obesity hypoventilation syndrome as well as COPD. Imaging studies obtained on admission did show Mixed reticular and consolidative opacities with vascular indistinctness in a pattern favoring edema. Small bilateral pleural effusions. Please on supplemental oxygen admitted to monitored bed for treatment of underlying clinical etiology 2. Acute on chronic congestive heart failure with preserved ejection fraction ? Echo from an outside hospital obtained on 02/08/2025 demonstrated EF of 68% ?5. Admitted to a monitored bed manage with strict input and output, daily weight, fluid restriction and low-sodium diet as well as diuretic therapy. 2. COPD with acute exacerbation ? Patient started on bronchodilator treatment, systemic steroid as well as antibiotic therapy. Patient placed on oxygen titrated to keep saturation greater than 90. 4. Obstructive sleep apnea ? CPAP at night 5. Class III obesity with BMI of 70 ? Complicating care, Weight loss advised 6. Dyslipidemia ?Patient is on statin therapy, continued at home dose 7. Depression ? Did continue patient home meds 8. DVT prophylaxis ? Subcu Lovenox 40 mg SC Q12 Charges/Coding Visit Charges Inpatient E&M: 04576 Subs Hosp L2
--- NOTE | 2025-07-04 10:12 | ECHOCS_ITS ---
Reason For Study Reason For Study: CHF Procedure This was a 2D Doppler, Color Flow transthoracic echocardiogram. The study was technically difficult. Contrast injection was performed. The patient was scanned supine. Very technically difficult study due to body habitus and suboptimal positioning. Limited views and measurements were able to be obtained. Exam performed portable in patient room. Left Ventricle Technically difficult study with poor acoustic windows limiting interpretation. Definity contrast utilized to visualize the endocardial borders. The estimated ejection fraction is 55???60 %. Diastolic function is indeterminate. Right Ventricle Normal RV size. Normal systolic function. Atria The left atrium is not well visualized. Right atrium not well-visualized. Mitral Valve Mitral valve not well visualized. There is no mitral valve stenosis. Trivial mitral valve insufficiency. Tricuspid Valve The tricuspid valve is not well visualized. There is no tricuspid stenosis. Trivial tricuspid valve insufficiency. Aortic Valve Not well-visualized. Unable to determine number of leaflets. There is no aortic valve stenosis. Pulmonic Valve The pulmonic valve is not well visualized. Great Vessels Poor visualization. IVC appears to be mildly dilated with normal respiratory collapse. Right atrial pressure estimated at 5-10 mmHg. Pericardium/Pleural Pericardium not well-visualized. Possible anterior fat pad however no significant effusion appreciated. Medication Diluted definity 3ml given slow IV push to enhance endocardial definition. MMode/2D Measurements & Calculations Ao root diam: 2.5 cm LA dimension(2D): 4.0 cm Time Measurements MV dec time: 0.18 sec Doppler Measurements & Calculations MV E max edmond: 101.4 cm/sec Lat Peak E' Edmond: 5.9 cm/sec Med Peak E' Edmond: 7.3 cm/sec MV A max edmond: 65.7 cm/sec E/E' lat: 17.1 E/E' med: 13.9 MV E/A: 1.5 PA V2 max: 95.3 cm/sec MV dec slope: 576.0 cm/sec2 ECHO/Echo Complete W/ Contrast Interpretation Summary Technically difficult study with poor acoustic windows limiting interpretation. Definity contrast utilized to visualize the endocardial borders. The estimated ejection fraction is 55???60 %. Diastolic function is indeterminate. Poor visualization however no significant valvular heart disease appreciated. Compared to echocardiogram report 02/08/2025 no significant changes appreciated. Stable normal ejection fraction. Unable to grade diastolic function. No significant valvular heart disease appreciated. Ordering Physician: Nate Barney Referring Physician: Katherine Hardin Performed By: Kenna Acosta RDCS
--- NOTE | 2025-07-04 13:50 | CASEMGMT ---
Social Work- SW met with pt to provide advanced care planning booklet and PCP list. SW to follow [place]
--- NOTE | 2025-07-04 14:42 | CASEMGMT ---
Addendum entered by Archana Escalante 07/04/25 15:35: Pt asks for AD information, updated SW. Original Note: CHAIM MAXWELL Assessment: Face to Face with pt for initial transition planning/care coordination assessment. CHAIM MAXWELL introduced self and role at [facility], pt voices understanding and consents to assessment. Pt is A&O x4 and answers all questions appropriately at this time. Pt sitting up on eob in no distress with sig other at bedside. Pt agreeable to dc planning with sig other present. Care providers, pharmacy, and demographics verified/updated. Admitting Dx: COPD exac Strata Score: 2 PCP:Wilfred, pt asked for a local healthcare provider directory. Provided to SW to give to pt when she sees for AD. Specialists:SITA lopez, pt thinks may be Veronica Motley Preferred Pharmacy: [facility] Insurance: [employer] Prescription Benefit: yes LNOK: Jasmin Mojica, sig other; Judith Mojica, mother in law Living Arrangements: Pt lives with sig other in a mobile home with 3 steps to enter with a rail. Pt reports she is I in ADLs but sig other assists with lower body dressing and washing hair. Pt sig other prepares meals, laundry and gets groceries. Pt denies concerns at home. Transportation: Pt doesn't drive, sig other transports pt. DME:pox, nebulizer, oxygen with portability, CPAP, cane HHC/SNF: Denies hx of Pt states no concerns with going home at time of dc. Pt states she uses her oxygen only as needed. She is not aware of the name of the company she receives the oxygen from. She states it is in [place]. Pt pulled up her my chart information which shows oxygen was ordered at 4L cont. Pt states it was initially ordered that way but now she only needs it PRN. Pt can bring in portable tank if needed at dc but she is unsure if they have a duarte for it. Pt states no further concerns/needs. CM to follow. Advised pt to ask CM if any further questions/concerns/needs arise, voices understanding. Pt Goal: Home Plan: Home, follow for change in oxygen orders John RUCKER CM
--- NOTE | 2025-07-04 16:36 | NURSING ---
in to talk with patient and visitor as well as pt's sister on speaker phone regarding POC. POC explained to patient. pt denies all further needs.
--- NOTE | 2025-07-04 23:04 | CPS ---
pt did not want cpap on at this time-set up and on standby with 4 l/m bleed in
[2025-07-05 04:03] VITALS: BP 156/84; PULSE 68; RESP 18; TEMP 36.3; O2SAT 93
[2025-07-05 04:21] LABS: Hematocrit 38.7 % (37-47); Hemoglobin 12.3 g/dL (12.0-15.0); Immature Granulocytes Count 0.240 X10^3/uL (0.0-0.0); Mean Corp Hgb Conc 31.8 g/dL (32-36); Mean Corpuscular Volume 82.7 fL (81-99); Mean Platelet Vol. 9.9 fl (6.2-12.0); NRBC Flagged by Analyzer 0.1 % (0-5); Platelet Count 297 K/mm3 (150-450); RBC Distribution Width CV 17.2 % (11.6-14.6); RBC Distribution Width SD 50.3 fl (35.1-43.9); Red Blood Count 4.68 M/mm3 (4.2-5.4); White Blood Count 15.3 K/mm3 (4.4-11.0)
[2025-07-05 06:16] LABS: Anion Gap 14 (7-18); BUN 13 mg/dL (4-19); BUN/Creat Ratio 18.0 RATIO (10-20); Calcium,Total 9.4 mg/dL (7.6-11.0); Carbon Dioxide 27.7 mmol/L (20.0-29.0); Chloride 99 mmol/L (96-106); Estimated Creatinine Clearance 152.65 ml/min (50-250); Glucose 168 mg/dL (70-99); Magnesium 2.2 mg/dL (1.5-2.2); Potassium 3.9 mmol/L (3.5-5.1)
--- NOTE | 2025-07-05 07:08 | PN.HOSP_ITS ---
Reason for Visit Chief Complaint: Worsening shortness of breath Subjective Subjective Patient seen, patient is in a negative fluid balance of 7 L over the past 24 hours. Patient is requesting for her diet to be changed to regular diet. She is also requesting to be discharged home. Objective Data Objective Data Vital Signs: Vital Signs Temp Pulse Resp BP Pulse Ox O2 Del Method O2 Flow Rate 97.4 F L 68 18 156/84 H 93 CPAP 4 07/05/25 04:03 07/05/25 04:03 07/05/25 04:03 07/05/25 04:03 07/05/25 04:03 07/05/25 04:14 07/04/25 20:48 Oxygen Flow Rate (L/min) 4 Oxygen Delivery Method CPAP Weight: 161.7 kg Body Mass Index (BMI) 69.9 Intake & Output: Intake and Output for Last 24 Hours 07/03/25 07/04/25 07/05/25 23:59 23:59 23:59 Intake Total 1850 / 1850 800 / 800 Output Total 2400 / 2400 4000 / 4000 Balance -550 / -550 -3200 / -3200 Lab / Micro Data 07/05/25 03:46 07/05/25 03:46 Labs: Laboratory Results - last 24 hr 07/05/25 03:46: WBC 15.3 H, RBC 4.68, Hgb 12.3, Hct 38.7, MCV 82.7, MCH 26.3 L, MCHC 31.8 L, RDW Std Deviation 50.3 H, RDW Coeff of Herberth 17.2 H, Plt Count 297, MPV 9.9, Immature Gran % (Auto) 1.600 H, Neut % (Auto) 79.1 H, Lymph % (Auto) 11.4 L, [place] % (Auto) 7.7, Eos % (Auto) 0.0, Baso % (Auto) 0.2, Absolute Neuts (auto) 12.1 H, Absolute Lymphs (auto) 1.74, Nucleated RBC % 0.1, Sodium 140, Potassium 3.9, Chloride 99, Carbon Dioxide 27.7, Anion Gap 14, BUN 13, C reatinine 0.69 L, Estim Creat Clear Calc 152.65, Est GFR (MDRD) Non-Af 110, BUN/Creatinine Ratio 18.0, Glucose 168 H, Calcium 9.4, Phosphorus 3.8, Magnesium 2.2 Micro: Microbiology 07/03/25 22:10 Mucosa - Nose SARS-CoV-2, Influenza & RSV (PCR) - Final Radiography Diagnostic Testing: Radiology Impression Echocardiogram 07/04/25 10:12 Interpretation Summary Technically difficult study with poor acoustic windows limiting interpretation. Definity contrast utilized to visualize the endocardial borders. The estimated ejection fraction is 55???60 %. Diastolic function is indeterminate. Poor visualization however no significant valvular heart disease appreciated. Compared to echocardiogram report 02/08/2025 no significant changes appreciated. Stable normal ejection fraction. Unable to grade diastolic function. No significant valvular heart disease appreciated. Ordering Physician: Nate Barney Referring Physician: Katherine Hardin Performed By: Kenna Acosta RDCS Physical Exam Narrative GENERAL: cooperative HEENT: Atraumatic; normocephalic EYES; Anicteric, Normal Conjunctiva NECK; supple, normal thyroid, RESPIRATORY: Diminished to auscultation CARDIOVASCULAR: Regular S1 S2, GI: soft, normoactive bowel sounds, : No Renal angle tenderness; EXTREMITIES: No edema, no clubbing, MUSCULOSKELETAL: no muscle wasting NEURO: Awake; no lateralizing signs. SKIN: No Rash PSYCH; Flat affect Assessment & Plan Assessment/Plan (1) COPD exacerbation: (2) Fluid overload: QUALIFIERS: Hypervolemia type: other Qualified Code(s): E87.79 - Other fluid overload (3) (HFpEF) heart failure with preserved ejection fraction: QUALIFIERS: Heart failure chronicity: acute on chronic Qualified Code(s): I50.33 - Acute on chronic diastolic (congestive) heart failure (4) Obstructive sleep apnea on CPAP: PLAN: Plan Patient is a 45-year-old lady who presented with progressive shortness of breath. 1. Acute on chronic hypoxic respiratory failure ? Secondary to a combination of CHF, obesity hypoventilation syndrome as well as COPD. Imaging studies obtained on admission did show Mixed reticular and consolidative opacities with vascular indistinctness in a pattern favoring edema. Small bilateral pleural effusions. Please on supplemental oxygen admitted to monitored bed for treatment of underlying clinical etiology 2. Acute on chronic congestive heart failure with preserved ejection fraction ? Echo from an outside hospital obtained on 02/08/2025 demonstrated EF of 68% ?5. Admitted to a monitored bed manage with strict input and output, daily weight, fluid restriction and low-sodium diet as well as diuretic therapy. ? 07/05/2025; significant response to patient diuretic therapy. Patient did request to be placed on a regular diet. Did high school guidance counselor the patient on the need to be compliant with diet tree as well as therapeutic recommendations. 2D echo obtained the day prior did show The estimated ejection fraction is 55-60 %. Diastolic function is indeterminate. Poor visualization however no significant valvular heart disease appreciated. Compared to echocardiogram report 02/08/2025 no significant changes appreciated. Stable normal ejection fraction. Unable to grade diastolic function. No significant valvular heart disease appreciated 2. COPD with acute exacerbation ? Patient started on bronchodilator treatment, systemic steroid as well as antibiotic therapy. Patient placed on oxygen titrated to keep saturation greater than 90. 4. Obstructive sleep apnea ? CPAP at night 5. Class III obesity with BMI of 70 ? Complicating care, Weight loss advised 6. Dyslipidemia ?Patient is on statin therapy, continued at home dose 7. Depression ? Did continue patient home meds 8. DVT prophylaxis ? Subcu Lovenox 40 mg SC Q12 9. Leukocytosis ? Secondary to concomitant use of steroids will monitor Time spent in the patient's overall evaluation,decision-making process, review of diagnostic data, adjustment of management, discussion with other providers, nursing nursing and ancillary staff involved in patient's care documentation, 38 Minutes Charges/Coding Visit Charges Inpatient E&M: 47374 Subs Hosp L2
[2025-07-05 07:29] VITALS: O2SAT 94
[2025-07-05 09:11] VITALS: BP 120/66; PULSE 70; RESP 18; TEMP 36.2; O2SAT 96
--- NOTE | 2025-07-05 10:02 | DS.PCM_ITS ---
Providers Date of Admission: 07/04/25 Date of Discharge: 07/05/25 Primary Care Physician: JEROD Burch Reason For Visit: COPD EXACERBATION Diagnosis Discharge Diagnosis (1) COPD exacerbation: Status: Chronic Code(s): J44.1 - Chronic obstructive pulmonary disease with (acute) exacerbation (2) Fluid overload: Status: Acute Code(s): E87.70 - Fluid overload, unspecified Qualifiers: Hypervolemia type: other Qualified Code(s): E87.79 - Other fluid overload (3) (HFpEF) heart failure with preserved ejection fraction: Status: Acute Code(s): I50.30 - Unspecified diastolic (congestive) heart failure Qualifiers: Heart failure chronicity: acute on chronic Qualified Code(s): I50.33 - Acute on chronic diastolic (congestive) heart failure (4) Obstructive sleep apnea on CPAP: Status: Acute Code(s): G47.33 - Obstructive sleep apnea (adult) (pediatric) Plan Patient is a 45-year-old lady who presented with progressive shortness of breath. 1. Acute on chronic hypoxic respiratory failure ? Secondary to a combination of CHF, obesity hypoventilation syndrome as well as COPD. Imaging studies obtained on admission did show Mixed reticular and consolidative opacities with vascular indistinctness in a pattern favoring edema. Small bilateral pleural effusions. Please on supplemental oxygen admitted to monitored bed for treatment of underlying clinical etiology 2. Acute on chronic congestive heart failure with preserved ejection fraction ? Echo from an outside hospital obtained on 02/08/2025 demonstrated EF of 68% ?5. Admitted to a monitored bed manage with strict input and output, daily weight, fluid restriction and low-sodium diet as well as diuretic therapy. ? 07/05/2025; significant response to patient diuretic therapy. Patient did request to be placed on a regular diet. Did senior vice president & general counsel the patient on the need to be compliant with diet tree as well as therapeutic recommendations. 2D echo obtained the day prior did show The estimated ejection fraction is 55-60 %. Diastolic function is indeterminate. Poor visualization however no significant valvular heart disease appreciated. Compared to echocardiogram report 02/08/2025 no significant changes appreciated. Stable normal ejection fraction. Unable to grade diastolic function. No significant valvular heart disease appreciated 2. COPD with acute exacerbation ? Patient started on bronchodilator treatment, systemic steroid as well as antibiotic therapy. Patient placed on oxygen titrated to keep saturation greater than 90. 4. Obstructive sleep apnea ? CPAP at night 5. Class III obesity with BMI of 70 ? Complicating care, Weight loss advised 6. Dyslipidemia ?Patient is on statin therapy, continued at home dose 7. Depression ? Did continue patient home meds 8. DVT prophylaxis ? Subcu Lovenox 40 mg SC Q12 9. Leukocytosis ? Secondary to concomitant use of steroids will monitor Time spent in the patient's overall evaluation,decision-making process, review of diagnostic data, adjustment of management, discussion with other providers, nursing nursing and ancillary staff involved in patient's care documentation, 38 Minutes Medications at Discharge Home Medications albuterol sulfate 90 mcg/actuation aerosol inhaler (Ventolin HFA) 2 puff inhalation Q4H PRN PRN Wheezing ##1 07/11/24 cetirizine 10 mg tablet 10 mg PO DAILY allergies 01/02/25 pantoprazole 40 mg tablet,delayed release 40 mg PO DAILY gerd 01/02/25 trazodone 50 mg tablet 100 mg PO QHS sleep 01/02/25 atorvastatin 10 mg tablet (Lipitor) 10 mg PO DAILY cholesterol 02/14/25 fluticasone 250 mcg-salmeterol 50 mcg/dose blistr powdr for inhalation (Advair Diskus) 1 inh inhalation BID asthma 02/14/25 ipratropium 0.5 mg-albuterol 3 mg (2.5 mg base)/3 mL nebulization soln 3 ml inhalation Q6H PRN SOB 02/14/25 lumateperone 21 mg capsule (Caplyta) 21 mg PO DAILY mood stabilizer 02/14/25 omega-3 acid ethyl esters 1 gram capsule 1 cap PO DAILY Heart Health 02/14/25 propranolol 20 mg tablet 20 mg PO TID PRN anxiety 02/14/25 venlafaxine 37.5 mg capsule,extended release 24 hr 37.5 mg PO QDAY depressive disorder 03/29/25 amitriptyline 50 mg tablet 50 mg PO QHS depressive disorder 07/04/25 doxycycline hyclate 100 mg capsule 100 mg PO BID 5 days #10 caps 07/04/25 lumateperone 42 mg capsule (Caplyta) 42 mg PO DAILY depressive disorder 07/04/25 prednisone 50 mg tablet 50 mg PO DAILY 4 days #4 tabs 07/04/25 rosuvastatin 5 mg tablet 5 mg PO QHS high cholesterol 07/04/25 venlafaxine 150 mg capsule,extended release 24 hr 150 mg PO DAILY depressive disorder 07/04/25 furosemide 40 mg tablet (Lasix) 40 mg PO DAILY #60 tabs 07/05/25 Physical Exam Narrative GENERAL: cooperative HEENT: Atraumatic; normocephalic EYES; Anicteric, Normal Conjunctiva NECK; supple, normal thyroid, RESPIRATORY: Diminished to auscultation CARDIOVASCULAR: Regular S1 S2, GI: soft, normoactive bowel sounds, : No Renal angle tenderness; EXTREMITIES: No edema, no clubbing, MUSCULOSKELETAL: no muscle wasting NEURO: Awake; no lateralizing signs. SKIN: No Rash PSYCH; Flat affect Weight / BMI Weight Weight: 161.7 kg Body Mass Index (BMI) 69.9 ABG / Lab / Microbiology Data 07/05/25 03:46 07/05/25 03:46 Laboratory: Laboratory Results - last 24 hr 07/05/25 03:46: WBC 15.3 H, RBC 4.68, Hgb 12.3, Hct 38.7, MCV 82.7, MCH 26.3 L, MCHC 31.8 L, RDW Std Deviation 50.3 H, RDW Coeff of Herberth 17.2 H, Plt Count 297, MPV 9.9, Immature Gran % (Auto) 1.600 H, Neut % (Auto) 79.1 H, Lymph % (Auto) 11.4 L, Prentiss % (Auto) 7.7, Eos % (Auto) 0.0, Baso % (Auto) 0.2, Absolute Neuts (auto) 12.1 H, Absolute Lymphs (auto) 1.74, Nucleated RBC % 0.1, Sodium 140, Potassium 3.9, Chloride 99, Carbon Dioxide 27.7, Anion Gap 14, BUN 13, C reatinine 0.69 L, Estim Creat Clear Calc 152.65, Est GFR (MDRD) Non-Af 110, BUN/Creatinine Ratio 18.0, Glucose 168 H, Calcium 9.4, Phosphorus 3.8, Magnesium 2.2 Microbiology: Microbiology 07/03/25 22:10 Mucosa - Nose SARS-CoV-2, Influenza & RSV (PCR) - Final Radiography Diagnostic Testing: Radiology Impression Echocardiogram 07/04/25 10:12 Interpretation Summary Technically difficult study with poor acoustic windows limiting interpretation. Definity contrast utilized to visualize the endocardial borders. The estimated ejection fraction is 55???60 %. Diastolic function is indeterminate. Poor visualization however no significant valvular heart disease appreciated. Compared to echocardiogram report 02/08/2025 no significant changes appreciated. Stable normal ejection fraction. Unable to grade diastolic function. No significant valvular heart disease appreciated. Ordering Physician: Nate Barney Referring Physician: Katherine Hardin Performed By: Kenna Acosta RDCS D/C Instructions Discharge Activity: Return to Normal Activity Call your doctor if you observe: Fever of 101 or Higher, Shortness of breath, Fainting spells and Chest pain DC O2, CPAP, BIPAP Needs Home O2 Discharge instructions: Yes Type of respiratory needs?: Oxygen Oxygen frequency: Continuous Continuous oxygen liters per minute: 4 DC home with Oxygen: Yes Home O2 MD Review: I have reviewed the oxygen testing, and the patient qualifies for home oxygen equipment and portability. The patient is mobile in the home and the community. Patient's Goals Of Care - F/U Goals Reviewed Goals of care reviewed with patient: Yes - No change Meaningful Use Info Meaningful Use Meaningful Use Diagnoses (Choose all that apply): CHF CHF BILLY/ARB ordered at discharge?: No Reason BILLY/ARB not ordered?: Not indicated Documented LVEF (%): 60 Discharge Plan Admission Admit Date/Time: 07/04/25 02:54 Attending Provider: Nate Barney Primary Care Provider: Katherine Hardin Consulting Providers: Lida Shipman; Nate Barney; Manuel Wharton Instructions Additional Instructions / Restrictions: Follow-up with your doctor in the outpatient setting. Take antibiotics and steroids as prescribed use your inhalers at home as prescribed. Return with worsening symptoms or any other concerns Discharge Orders/Prescriptions Prescriptions: New prednisone 50 mg tablet 50 mg PO DAILY 4 Days Qty: 4 0RF doxycycline hyclate 100 mg capsule 100 mg PO BID 5 Days Qty: 10 0RF furosemide [Lasix] 40 mg tablet 40 mg PO DAILY Qty: 60 0RF Continued venlafaxine 37.5 mg capsule,extended release 24hr 37.5 mg PO QDAY albuterol sulfate [Ventolin HFA] 90 mcg/actuation HFA aerosol inhaler 2 puff inhalation Q4H PRN PRN (Reason: Wheezing) Qty: 1 0RF trazodone 50 mg tablet 100 mg PO QHS cetirizine 10 mg tablet 10 mg PO DAILY pantoprazole 40 mg tablet,delayed release (DR/EC) 40 mg PO DAILY fluticasone propion-salmeterol [Advair Diskus] 250-50 mcg/dose blister with device 1 inh inhalation BID ipratropium-albuterol 0.5 mg-3 mg(2.5 mg base)/3 mL solution for nebulization 3 ml inhalation Q6H PRN (Reason: SOB) Patient Comments: use 1 vial twice daily scheduled and every 6 (SIX) hours NEEDED for SHORTNESS OF BREATH omega-3 acid ethyl esters 1 gram capsule 1 cap PO DAILY atorvastatin [Lipitor] 10 mg tablet 10 mg PO DAILY propranolol 20 mg tablet 20 mg PO TID PRN Caplyta 21 mg capsule 21 mg PO DAILY rosuvastatin 5 mg tablet 5 mg PO QHS venlafaxine 150 mg capsule,extended release 24hr 150 mg PO DAILY Caplyta 42 mg capsule 42 mg PO DAILY amitriptyline 50 mg tablet 50 mg PO QHS Referrals / Follow Up: Katherine Hardin FRAME [facility] [Primary Care Provider, Medical] - Within 2 Weeks Disposition Disposition (needs filled in before D/C Order can be placed): Home, Self Care Charges/Coding Visit Charges Inpatient E&M: 25504 Disch Hosp >30min
[2025-07-05 10:54] VITALS: O2SAT 88; O2SAT 91; O2SAT 93
--- NOTE | 2025-07-05 11:15 | CASEMGMT ---
Patient has order for discharge. Oxygen testing completed, patient was requiring 2lpm at rest and 3lpm with ambulation. Per documentation, patient was wearing oxygen at 4lpm. RN CM in to discuss needs at discharge. Patient called Kanchan, significant other and confirms that her oxygen is through [facility]. Patient states that he concentrator has not been serviced in 2 years. RN CM encourage Kanchan to call [facility] to service concentrator, Kanchan voiced understanding. Kanchan to bring tank from home for at discharge. Patient and Kanchan had no further questions or concerns.
[2025-07-05 12:58] VITALS: PULSE 78; RESP 20
--- NOTE | 2025-07-10 11:30 | CASEMGMT ---
Social work Received call from patient (ph: [phone]) stating patient needs a prescription for O2 due to [facility] not being able to service patient's home O2. Patient states needing portable O2 and wanting this sent to [facility]. Patient was told that someone would call patient back. This SW called LEXI Magaña and explained the situation; Archana to call patient back. Allyn Noriega, BAND TEACHER, FUR IRONER
--- NOTE | 2025-07-10 11:34 | CASEMGMT ---
Received tc from ER SW stating pt called in and needs her oxygen serviced. TC to pt, left vm for returned call.
--- NOTE | 2025-07-18 11:17 | CASEMGMT ---
Received a trf'd call from pt who states she needs her oxygen switched to a different company as she wants a portable concentrator. Pt is aware that this will need to go through her pulm as she is not a patient at [facility] any longer. Pt states her portable tanks are empty, she is aware to notify her O2 supplier so these can be switched out. Pt states so you won't help me just like you didn't help me when I was there and pt hung up on RN CM.
== END 2025-07-05 13:07 | disposition home or self-care (01) ==
LOC: ED 07-04 00:29 → MS3 07-04 07:01
PROVIDERS: Admitting Provider Internal Medicine; Emergency Provider Emergency Medicine; PCP Nurse Practitioner Family; Visit Provider Internal Medicine
DX: J44.1 Chronic obstructive pulmonary disease with (acute) exacerbation (principal); F20.9 Schizophrenia, unspecified; J96.21 Acute and chronic respiratory failure with hypoxia; J96.22 Acute and chronic respiratory failure with hypercapnia; I50.33 Acute on chronic diastolic (congestive) heart failure; E66.2 Morbid (severe) obesity with alveolar hypoventilation; Z68.45 Body mass index [BMI] 70 or greater, adult; E66.813 Obesity, class 3; Z99.81 Dependence on supplemental oxygen; F32.A Depression, unspecified; E78.5 Hyperlipidemia, unspecified; F41.9 Anxiety disorder, unspecified; K21.9 Gastro-esophageal reflux disease without esophagitis; D72.829 Elevated white blood cell count, unspecified; F90.9 Attention-deficit hyperactivity disorder, unspecified type; T38.0X5A Adverse effect of glucocorticoids and synthetic analogues, initial encounter; Z79.51 Long term (current) use of inhaled steroids; Z79.899 Other long term (current) drug therapy; Z87.891 Personal history of nicotine dependence; E87.79 Other fluid overload
CPT/HCPCS: 36415; 71046; 80048; 80053; 81001; 83605; 83735; 84100; 85025; 85610; 85730; 87040; 87086; 87631; 93005; 93306; 94640; 94660; 96361; 96365; 96366; 96367; 96372; 96375; 96376; 99221; 99285; 99406; Q9957; A4216; C8929; G0378; J1938